=== PATIENT | male | born 1955 | race Hispanic/Latino ===

== ENCOUNTER 2016-10-19 11:23 | Inpatient (IN) | payer MEDICAID ==
[2016-10-19 12:29] LABS: BASO % 0.5 % (0.0-2.0); EOS # 0.1 K/uL (0.0-0.7); EOS % 1.4 % (0.0-4.0); HEMATOCRIT 39.5 % (35.0-51.0); LYMPH # 1.9 K/uL (1.0-4.3); LYMPH % 28.9 % (20.0-40.0); MEAN CELL VOLUME 90.9 fL (80.0-94.0); MEAN CORPUSCULAR HEMOGLOBIN 30.5 pg (27.0-31.0); MEAN CORPUSCULAR HGB CONC 33.6 g/dL (33.0-37.0); MEAN PLATELET VOLUME 7.3 fL (7.2-11.7); MONO # 0.7 K/uL (0.0-0.8); MONO % 11.2 % (0.0-10.0); RED CELL DISTRIBUTION WIDTH 13.2 % (11.5-14.5); WHITE BLOOD COUNT 6.6 K/uL (4.8-10.8)
[2016-10-19 12:38] LABS: CHLORIDE 105 mmol/L (98-107)
[2016-10-19 12:39] LABS: SODIUM 138 mmol/L (132-148)
[2016-10-19 12:41] LABS: ALB/GLOB RATIO 1.5 (1.0-2.1); AST/SGOT 47 U/L (17-59); BILIRUBIN,TOTAL 1.1 mg/dL (0.2-1.3); BLOOD UREA NITROGEN 16 mg/dL (9-20); CARBON DIOXIDE 23 mmol/L (22-30); GFR AFRICAN-AMERICAN > 60; TOTAL PROTEIN 7.3 g/dL (6.3-8.3)
[2016-10-19 12:42] LABS: ALKALINE PHOSPHATASE 83 U/L (38-126); ALT/SGPT 56 U/L (21-72); CALCIUM 9.1 mg/dl (8.6-10.4); GLUCOSE,RANDOM 100 mg/dL (75-110)
--- NOTE | 2016-10-19 13:23 | C.PDOC ---
History Of Present Illness 61 year old male presents to the ED with complaints of severe midsternal chest pain and paresthesia of the left arm. Patient notes a history of multiple TIAs one in April 2016 and another in June 2016 with a history of Atrial Fibrillation. He also mentions history of chronic pain to the right arm and back with the use of narcotics. Patient denies any fever, nausea, or vomiting. Time Seen by Provider: 10/19/16 12:11 Chief Complaint (Nursing): Chest Pain History Per: Patient History/Exam Limitations: no limitations Onset/Duration Of Symptoms: Hrs Current Symptoms Are (Timing): Still Present Quality: "Pain" Associated Symptoms: denies: Nausea, Diaphoresis Recent travel outside of the [place]: No Past Medical History Reviewed: Historical Data, Nursing Documentation, Vital Signs Vital Signs: Last Vital Signs Temp 98.0 F 10/19/16 16:55 Pulse 68 10/19/16 16:55 Resp 20 10/19/16 16:55 BP 125/77 10/19/16 16:55 Pulse Ox 97 10/19/16 16:55 - Medical History PMH: Anxiety, Arthritis, Asthma, Atrial Fibrillation, Back Problems, Bipolar Disorder, Cardia Arrhythmia, COPD, Depression, Hepatitis, HTN, Post Traumatic Stress Disorder (1985 of 2 y/o daughter), TIA (March 2016/JUN 2016) Surgical History: Appendectomy, Tonsillectomy Denies: Carotid Endarterectomy - [facility] Procedures DX ULTRASOUND-HEART (05/05/14) INSERTION OF INFUSION DEV INTO SUP VENA CAVA, PERC APPROACH (07/09/15) PERCUTANEOUS ABDOMINAL DRAINAGE (05/05/14) ULTRASONOGRAPHY OF RIGHT AND LEFT HEART, TRANSESOPHAGEAL (07/09/15) VENOUS CATHETERIZATION NEC (05/05/14) Family History: States: Unknown Family Hx - Social History Hx Tobacco Use: Yes (1ppd from ages [age] ) Hx Alcohol Use: No Hx Substance Use: No - Immunization History Hx Tetanus Toxoid Vaccination: No Hx Influenza Vaccination: Yes (01/2015) Hx Pneumococcal Vaccination: No (2013) Review Of Systems Constitutional: Negative for: Fever, Chills, Sweats Cardiovascular: Positive for: Chest Pain. Negative for: Palpitations Respiratory: Negative for: Cough, Shortness of Breath Gastrointestinal: Negative for: Nausea, Vomiting, Abdominal Pain, Diarrhea Neurological: Positive for: Other (left arm parenthesia ). Negative for: Headache Physical Exam - Physical Exam Appears: Non-toxic, No Acute Distress Skin: Warm, Dry Head: Atraumatic Oral Mucosa: Moist Neck: Supple Chest: Symmetrical, No Deformity Cardiovascular: Rhythm Regular Respiratory: No Rales, No Rhonchi, No Stridor, No Wheezing Gastrointestinal/Abdominal: Soft, No Tenderness, No Distention, No Guarding, No Rebound Extremity: Normal ROM, No Tenderness Neurological/Psych: Oriented x3 ED Course And Treatment - Laboratory Results Result Diagrams: 10/19/16 12:26 10/19/16 12:26 ECG Rhythm: Sinus Rhythm (70 bpm) ECG Interpretation: Normal (No accelerations and no depressions ) O2 Sat by Pulse Oximetry: 98 (room air ) Disposition Discussed With : Lupe Bowen Doctor Will See Patient In The: Hospital Counseled Patient/Family Regarding: Studies Performed, Diagnosis - Disposition Disposition: HOSPITALIZED Disposition Time: 13:34 Condition: GUARDED - Clinical Impression Clinical Impression: Chest discomfort, Precordial pain - Scribe Statement The provider has reviewed the documentation as recorded by the Scribe Marzena Otero All medical record entries made by the Scribe were at my direction and personally dictated by me. I have reviewed the chart and agree that the record accurately reflects my personal performance of the history, physical exam, medical decision making, and the department course for this patient. I have also personally directed, reviewed, and agree with the discharge instructions and disposition. Decision To Admit - Pt Status Changed To: Hospital Disposition Of: Observation - . Bed Request Type: Telemetry Patient Diagnosis: Chest discomfort, Precordial pain
[2016-10-19] MEDS ORDERED: Aspirin 325 mg EC Tablets PO STA (13:31)
[2016-10-19] MEDS ORDERED: Aspirin 325 mg EC Tablets PO ONE (13:37)
--- NOTE | 2016-10-19 16:20 | CP.PCM.HP ---
<Michael Tomasssrc Oconnor - Last Filed: 10/19/16 19:41> History of Present Illness - History of Present Illness History of Present Illness: CC: "Chest Pain at 4:40am." HPI: 61 year old male who presents to the emergency department with chest pain that began at 4:30am. Patient states the pain has occured 2-3 days but the pain went away at rest. Currently the pain is constant and feels like a tightness as if an elephant is sitting on his chest. The pain is located substernal chest. There is constant numbness and tingling radiating to the left arm and fingertips which is made worse when what feels as an electric shock comes and also radiates to the left thigh. The pain is a 9/10 and nothing makes the pain worse or better. Patient states he did take 81mg of Aspirin but denies taking of his other home medications. Per patient has had nausea and vomiting occured yesterday once and no blood was seen. Patient states has has unwanted 6lb weight loss in one week. Patient has had two loose bowel movements today and has noticed red blood in stool. PMD: Dr. Garrett Psych: Dr. Olmstead Past Medical History: COPD, PTSD, Panic Anxiety Disorder, Bipolar, Depression, Atrial Fibrillation, Hyperlipidemia, osteomylitis, transient ischemic attack, Hepatitis C, Rotator cuff tear Past Surgical History: 1979 Left Knee Surgery, 1959 Appendectomy, Umbilical Hernia Repair, Groin Hernia Repair Family History: Mom: 50 years old, Congestive heart failure Dad: healthy 83 year old male, 2 brothers and one sister history of Myocardial Infarction Social History: 30 year smoking history 5 cigarettes per day, denies alcohol, denies illicit drugs,currently living in a homeless nursing home, 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 Home Medications per [employer]: 40 mg Omeprazole once per day 81mg Aspirin once per day 30mg Cardizem four times per day 125 digoxin once per day 25 metoprolol tartrate once daily Advair Diskus 250-50mcg/dose aerosol 1 puff inhalation twice per day Albuterol sulfate HFA 108 MCG/ACT aerosol solution 2 puffs as needed inhalation every 4 hours 10mg simvastatin once per day Percocet 5-325mg 1 tablet as needed orally every 6 hours Xanax 0.5mg tablet orally once per day as needed 150mg Bupropion tablet extended release 24 hour 1 tablet in the morning orally once a day Paxil 40mg tablet in the morning orally once a day MS Contin 15mg tablet extended release 1 tablet orally every 12 hours Present on Admission - Present on Admission Any Indicators Present on Admission: No History of DVT/PE: No History of Uncontrolled Diabetes: No Urinary Catheter: No Decubitus Ulcer Present: No History Surgical Site Infection Following: None Review of Systems - Constitutional Constitutional: Headache, Weight Loss Additional comments: unwanted 6lb weight loss in one week - Cardiovascular Cardiovascular: Chest Pain, Lightheadedness, Palpitations - Respiratory Respiratory: Cough - Gastrointestinal Gastrointestinal: Hematochezia, Loose Stools, Vomiting Additional comments: blood seen in the stool vomiting once 10/18/16 - Genitourinary Genitourinary: Nocturia Additional comments: voids 2 times nightly - Musculoskeletal Musculoskeletal: Back Pain Additional comments: spinal stenosis - Neurological Neurological: Headaches - Endocrine Endocrine: Fatigue, Palpitations Past Patient History - Infectious Disease Hx of Infectious Diseases: None - Tetanus Immunizations Tetanus Immunization: Unknown - Past Medical History & Family History Past Medical History?: Yes - Past Social History Smoking Status: Heavy Smoker > 10 Cigarettes Daily Chewing Tobacco Use: No Cigar Use: No Alcohol: None Drugs: Denies Home Situation {Lives}: Homeless - CARDIAC Hx Atrial Fibrillation: Yes Hx Cardia Arrhythmia: Yes Hx Hypertension: Yes - PULMONARY Hx Asthma: Yes Hx Chronic Obstructive Pulmonary Disease (COPD): Yes - NEUROLOGICAL Hx Transient Ischemic Attacks (TIA): Yes (March 2016/JUN 2016) - HEENT Hx Cataracts: Yes ("early stages" as per patient) - RENAL Hx Chronic Kidney Disease: No - ENDOCRINE/METABOLIC Hx Endocrine Disorders: No - HEMATOLOGICAL/ONCOLOGICAL Hx Human Immunodeficiency Virus (HIV): No - INTEGUMENTARY Hx Dermatological Problems: Yes Hx Psoriasis: Yes - MUSCULOSKELETAL/RHEUMATOLOGICAL Hx Arthritis: Yes - GASTROINTESTINAL Hx Gastrointestinal Disorders: No - GENITOURINARY/GYNECOLOGICAL Hx Sexually Transmitted Disorders: No - PSYCHIATRIC Hx Anxiety: Yes Hx Bipolar Disorder: Yes Hx Depression: Yes Hx Post Traumatic Stress Disorder: Yes (1985 of 2 y/o daughter) Hx Substance Use: No - SURGICAL HISTORY Hx Appendectomy: Yes Hx Carotid Endarterectomy: No Hx Tonsillectomy: Yes - ANESTHESIA Hx Anesthesia: Yes Hx Anesthesia Reactions: No Hx Malignant Hyperthermia: No Meds Allergies/Adverse Reactions: Allergies Allergy/AdvReac Type Severity Reaction Status Date / Time No Known Allergies Allergy Verified 10/19/16 11:32 Physical Exam - Constitutional Appears: No Acute Distress - Eye Exam Eye Exam: EOMI, PERRL Pupil Exam: NORMAL ACCOMODATION - Respiratory Exam Respiratory Exam: Clear to Auscultation Bilateral, NORMAL BREATHING PATTERN - Cardiovascular Exam Cardiovascular Exam: REGULAR RHYTHM. absent: JVD - GI/Abdominal Exam GI & Abdominal Exam: Normal Bowel Sounds, Soft - Rectal Exam Rectal Exam: NORMAL INSPECTION Additional comments: ordered stool occult blood - Extremities Exam Extremities exam: Positive for: full ROM, normal inspection, pedal pulses present. Negative for: pedal edema, tenderness - Neurological Exam Neurological exam: Alert, CN II-XII Intact, Oriented x3 Additional comments: Light headed was unstable to walk - Psychiatric Exam Psychiatric exam: Normal Affect, Normal Mood - Skin Skin Exam: Normal Color Results - Vital Signs Recent Vital Signs: Last Vital Signs Temp 98.3 F 10/19/16 15:16 Pulse 63 10/19/16 15:16 Resp 18 10/19/16 15:16 BP 128/81 10/19/16 15:16 Pulse Ox 98 10/19/16 15:30 - Labs Result Diagrams: 10/19/16 12:26 10/19/16 12:26 Labs: Laboratory Results - last 24 hr 10/19/16 15:14 Stool Occult Blood Negative Assessment & Plan - Assessment and Plan (Free Text) Assessment: 61 year old male who presents to the emergency department with chest pain. Plan: 1.) Chest Pain * Observe to telemetry * In the ED, Aspirin 325mg POx1 * Aspirin 81mg PO 1x daily * Metoprolol Tartrate 25mg daily * Cardizem 30mg 4x pe day * Digoxin level if negative will restart digoxin * ОЛЕГ and EKG at 6:30pm, ОЛЕГ and EKG at 12:30AM * ECHO (06/06/16): Left atrial enlarged, right atrium dilated, LV:60% * HgA1C * Lipid Panel * TSH 2.) Rectal Bleeding * Stool occult blood * monitor H/H * GI Consult: Dr. Riggs --> help appreciated * 40mg protonix daily 3.) Chronic Pain * History of stenosis, right rotator cuff tear * Urine Drug Screen pending * Percocet 5/325 q6h PRN 4.) History of PTSD, Anxiety, Bipolar, Depression * 40mg Paxil once daily * 150mg wellbutrin once daily * 0.5mg xanax once daily as needed 5.) Hyperlipidemia * 5mg Crestor * Lipid Panel 6.) History of COPD * Duonebs [id number] PRN for shortness of breath * 250.50 Advair 1 puff q12 hours 7.) History of Atrial Fibrillation * Metoprolol Tartrate 25mg daily * Cardizem 30mg 4x pe day * Off Xarelto due to rectal bleeding, and for future shoulder surgery * HASBLED:2 * CHADS:1 and aspirin 81mg PO daily 8.) History of Hepatitis C * not on current therapy at this time 9.) Prophylactic Treatment * SCDS bilateral * 40mg protonix daily <Lupe Bowen V - Last Filed: 10/19/16 23:28> Results - Vital Signs Recent Vital Signs: Last Vital Signs Temp 98.0 F 10/19/16 16:55 Pulse 68 10/19/16 16:55 Resp 18 10/19/16 17:27 BP 125/77 10/19/16 16:55 Pulse Ox 98 10/19/16 18:39 - Labs Result Diagrams: 10/19/16 12:26 10/19/16 12:26 Labs: Laboratory Results - last 24 hr 10/19/16 10/19/16 10/19/16 15:14 19:16 19:16 Total Creatine Kinase 40 L CK-MB (Mass) 0.68 Troponin I, Quant < 0.0120 Stool Occult Blood Negative Urine Opiates Screen Positive Urine Methadone Screen Negative Ur Barbiturates Screen Negative Ur Phencyclidine Scrn Negative Ur Amphetamines Screen Negative U Benzodiazepines Scrn Negative U Oth Cocaine Metabols Negative U Cannabinoids Screen Negative Attending/Attestation - Attestation I have personally seen and examined this patient.: Yes I have fully participated in the care of the patient.: Yes I have reviewed all pertinent clinical information: Yes Notes (Text): Patient seen, examined, and case discussed with day-time internet marketing analyst. Patient reporting he had chest pain this morning while waking up, substernal, left part of chest sometimes travels to the arm and neck. Patient denies prior episodes of chest pain. Patient also reported he thought he saw his stools were "dark" 5 days ago and reports possible rectal bleeding, small amount, but is unsure. Patient denies completing a prior baseline colonoscopy for screening. Patient routinely takes an aspirin at home. In the ED, patient received Aspirin 325mg PO X1, Toradol 30mg IVX1. Discussed admitting orders with the resident. Assessment/Plan 1.) Chest Pain * Observe to telemetry * In the ED, Aspirin 325mg POx1 * Will start Aspirin 81mg PO 1x daily * c/w Metoprolol Tartrate 25mg daily HOLD SBP<100 and HR<60 * c/w Cardizem 30mg 4x aday HOLD SBP<100 and HR<60 * Order for Digoxin level if negative will restart digoxin * Patient's initial troponin is negative. ОЛЕГ and EKG at 6:30pm, ОЛЕГ and EKG at 12:30AM * ECHO (06/06/16): Left atrial enlarged, right atrium dilated, LV:60% * HgA1C in AM * Lipid Panel in AM * TSH in AM 2.) Rectal Bleeding * Stool occult blood ordered and rectal performed by resident with consent by patient; negative * monitor H/H; appears stable * GI Consult: Dr Tim/ GI Fellow Dr. Riggs --> help appreciated * Protonix 40mg PO daily * Patient is currently on Aspirin 81mg PO daily and has been off Xarelto confirmed in both [employer] and [employer] works EMR 3.) Chronic Pain * History of spinal stenosis, extensive right rotator cuff tear * Urine Drug Screen ordered-->confirmed opiate use * Start Percocet 1 tab 5/325 q6h PRN pain 4.) History of PTSD, Anxiety, Bipolar, Depression * c/w Paxil 40mg PO daily * c/w Wellbutrin 150mg daily * c/w xanax 0.5mg PO daily as needed 5.) Hyperlipidemia * c/w Crestor 5mg POqHS * Lipid Panel in AM 6.) History of COPD * Patient is not in active exacerbation * Duonebs [id number] PRN for shortness of breath * Advair 250/50 1 puff q12 hours 7.) History of Atrial Fibrillation * c/w Metoprolol Tartrate 25mg daily Hold SBP<100 and HR<60 * c/w Cardizem 30mg QID Hold SBP<100 and HR<60 * patient has been off Xarelto due possible surgery for rotator cuff; will remain off given complaint of rectal bleeding * HASBLED:2 * CHADS:1 (HTN) * c/w Aspirin 81mg PO daily 8.) History of Hepatitis C * not on current therapy at this time 9.) Prophylactic Treatment * SCDS bilateral * Protonix 40mg PO daily for GI ppx * Contraindications to VTE due to rectal bleeding
[2016-10-19] MEDS ORDERED: Albuterol-Ipratrop 3 mg / 0.5 (3 ml) UD INH PRN (18:41)
[2016-10-19] MEDS: Oxycodone/Acetaminophen 5/325 mg Tab PO PRN (19:07)
[2016-10-20] MEDS: Oxycodone/Acetaminophen 5/325 mg Tab PO PRN ×3 (00:51→12:59)
[2016-10-20 04:29] LABS: BASO % 0.7 % (0.0-2.0); EOS # 0.2 K/uL (0.0-0.7); EOS % 2.8 % (0.0-4.0); HEMATOCRIT 41.9 % (35.0-51.0); LYMPH # 2.5 K/uL (1.0-4.3); LYMPH % 34.2 % (20.0-40.0); MEAN CORPUSCULAR HGB CONC 32.9 g/dL (33.0-37.0); MEAN PLATELET VOLUME 7.8 fL (7.2-11.7); MONO # 0.9 K/uL (0.0-0.8); RED CELL DISTRIBUTION WIDTH 13.3 % (11.5-14.5); WHITE BLOOD COUNT 7.3 K/uL (4.8-10.8)
[2016-10-20 04:40] LABS: CHLORIDE 106 mmol/L (98-107)
[2016-10-20 04:41] LABS: POTASSIUM 3.9 mmol/L (3.6-5.2); SODIUM 138 mmol/L (132-148)
[2016-10-20 04:43] LABS: ALB/GLOB RATIO 1.1 (1.0-2.1); AST/SGOT 38 U/L (17-59); BILIRUBIN,TOTAL 0.8 mg/dL (0.2-1.3); BLOOD UREA NITROGEN 18 mg/dL (9-20); CARBON DIOXIDE 24 mmol/L (22-30); CHOLESTEROL 156 mg/dL (0-199); GFR AFRICAN-AMERICAN > 60; GLUCOSE,RANDOM 105 mg/dL (75-110); TOTAL PROTEIN 7.1 g/dL (6.3-8.3)
[2016-10-20 04:44] LABS: ALKALINE PHOSPHATASE 93 U/L (38-126); ALT/SGPT 57 U/L (21-72)
[2016-10-20 05:18] LABS: THYROID STIMULATING HORMONE 1.54 mIU/L (0.46-4.68)
--- NOTE | 2016-10-20 09:13 | CP.PCM.CON ---
<Nick Neil - Last Filed: 10/20/16 12:52> History of Present Illness - History of Present Illness History of Present Illness: PGY4 GI Fellow Consult Note Patient is a 61yo male with PMHx significant for atrial fibrillation previously on Xarelto, COPD, spinal stenosis, HCV (Tx naive, GT 1a, unknown viral load), multiple TIA who presented to the ED with chest pain. The patient states that he first noted palpitations at rest two days [employer]. In the days that followed he developed substernal left sided chest pressure-like pain and left arm/hand paresthesias which prompted him to come to the ED for further evaluation. Our service has been consulted for rectal bleeding. He admits that 2 days [employer] he also developed diarrhea with 3-4 episodes per day of loose watery stool. On the second day of symptoms he noted bright red blood mixed with his stool. Complains of B/L lower quadrant cramping abdominal pain as well. He was seen in the [facility] in June of this year and at that time complained of hematochezia. He was scheduled for endoscopy/colonoscopy but was unfortunately lost to follow up. He denies any sick contacts, recent travel or antibiotic usage. It is noted that patient has been living in a homeless fci. PMHx: See HPI PSHx: Appendectomy, Umbilical and inguinal hernia repairs, Left knee arthroscopic surgery FHx: Mother - CHF Social: +tobacco use, denies EtOH currently, no current illicit drug use Endo: No prior endoscopic evaluations Review of Systems - Constitutional Constitutional: absent: Anorexia, Chills, Fever, Weight Loss - EENT Eyes: absent: Change in Vision Nose/Mouth/Throat: absent: Sore Throat - Cardiovascular Cardiovascular: Chest Pain, Pain Radiating to Arm/Neck/Jaw, Palpitations. absent: Dyspnea - Respiratory Respiratory: absent: Cough, Dyspnea, Excessive Mucous Production - Gastrointestinal Gastrointestinal: Abdominal Pain, Cramping, Diarrhea, Hematochezia, Loose Stools. absent: Bloating, Constipation, Dyspepsia, Dysphagia, Heartburn, Melena , Nausea, Vomiting - Genitourinary Genitourinary: absent: Dysuria, Urinary Frequency, Urinary Urgency - Musculoskeletal Musculoskeletal: Back Pain. absent: Neck Pain - Integumentary Integumentary: absent: New Lesions, Rash - Neurological Neurological: Numbness. absent: Dizziness, Focal Weakness - Psychiatric Psychiatric: absent: Anxiety, Depression - Endocrine Endocrine: absent: Polydipsia, Polyphagia, Polyuria - Hematologic/Lymphatic Hematologic: absent: Easy Bleeding, Easy Bruising, Lymphadenopathy Past Patient History - Infectious Disease Hx of Infectious Diseases: None - Tetanus Immunizations Tetanus Immunization: Unknown - Past Medical History & Family History Past Medical History?: Yes - Past Social History Smoking Status: Heavy Smoker > 10 Cigarettes Daily Chewing Tobacco Use: No Cigar Use: No Alcohol: None Drugs: Denies Home Situation {Lives}: Homeless - CARDIAC Hx Atrial Fibrillation: Yes Hx Cardia Arrhythmia: Yes Hx Hypertension: Yes - PULMONARY Hx Asthma: Yes Hx Chronic Obstructive Pulmonary Disease (COPD): Yes - NEUROLOGICAL Hx Transient Ischemic Attacks (TIA): Yes (March 2016/JUN 2016) - HEENT Hx Cataracts: Yes ("early stages" as per patient) - RENAL Hx Chronic Kidney Disease: No - ENDOCRINE/METABOLIC Hx Endocrine Disorders: No - HEMATOLOGICAL/ONCOLOGICAL Hx Human Immunodeficiency Virus (HIV): No - INTEGUMENTARY Hx Dermatological Problems: Yes Hx Psoriasis: Yes - MUSCULOSKELETAL/RHEUMATOLOGICAL Hx Arthritis: Yes - GASTROINTESTINAL Hx Gastrointestinal Disorders: No - GENITOURINARY/GYNECOLOGICAL Hx Sexually Transmitted Disorders: No - PSYCHIATRIC Hx Anxiety: Yes Hx Bipolar Disorder: Yes Hx Depression: Yes Hx Post Traumatic Stress Disorder: Yes (1985 of 2 y/o daughter) Hx Substance Use: No - SURGICAL HISTORY Hx Appendectomy: Yes Hx Carotid Endarterectomy: No Hx Tonsillectomy: Yes - ANESTHESIA Hx Anesthesia: Yes Hx Anesthesia Reactions: No Hx Malignant Hyperthermia: No Meds Allergies/Adverse Reactions: Allergies Allergy/AdvReac Type Severity Reaction Status Date / Time No Known Allergies Allergy Verified 10/19/16 11:32 - Medications Medications: Current Medications Albuterol/Ipratropium (Duoneb 3 Mg/0.5 Mg (3 Ml) Ud) 3 ml INH RQ4 PRN PRN Reason: Shortness of Breath Alprazolam (Xanax) 0.5 mg PO DAILY [facility] Aspirin (Aspirin Chewable) 81 mg PO DAILY [facility] Bupropion HCl (Wellbutrin Sr 150 Mg) 150 mg PO DAILY [facility] Diltiazem HCl (Cardizem) 30 mg PO QID [facility] Last Admin: 10/20/16 06:27 Dose: 30 mg Metoprolol Tartrate (Lopressor) 25 mg PO DAILY [facility] Oxycodone/Acetaminophen (Percocet 5/325 Mg Tab) 1 tab PO Q6H PRN PRN Reason: Pain, severe (8-10) Stop: 10/22/16 18:56 Last Admin: 10/20/16 06:55 Dose: 1 tab Pantoprazole Sodium (Protonix Ec Tab) 40 mg PO DAILY [facility] Paroxetine HCl (Paxil) 40 mg PO DAILY [facility] Rosuvastatin Calcium (Crestor) 5 mg PO HS [facility] Last Admin: 10/19/16 21:34 Dose: 5 mg Fluticasone/Salmeterol (Advair Diskus 250/50) 1 puff INH RQ12 [facility] Physical Exam - Constitutional Appears: Non-toxic, No Acute Distress - Eye Exam Eye Exam: EOMI, PERRL - ENT Exam ENT Exam: Mucous Membranes Moist - Respiratory Exam Respiratory Exam: Clear to Auscultation Bilateral. absent: Rales, Rhonchi, Wheezes - Cardiovascular Exam Cardiovascular Exam: Irregular Rhythm, +S1, +S2 Additional comments: regular rate - GI/Abdominal Exam GI & Abdominal Exam: Normal Bowel Sounds, Soft. absent: Distended, Firm, Guarding, Organomegaly, Rigid, Tenderness - Rectal Exam Rectal Exam: Hemorrhoids (external/internal). absent: Black Stool, Bloody Stool - Extremities Exam Extremities exam: Positive for: normal inspection. Negative for: pedal edema - Neurological Exam Neurological exam: Alert, Oriented x3 - Psychiatric Exam Psychiatric exam: Normal Affect, Normal Mood - Skin Skin Exam: Dry, Warm Results - Vital Signs Recent Vital Signs: Last Vital Signs Temp 98.6 F 10/20/16 07:05 Pulse 87 10/20/16 07:05 Resp 18 10/20/16 07:05 BP 117/77 10/20/16 07:05 Pulse Ox 97 10/20/16 07:05 - Labs Result Diagrams: 10/20/16 04:26 10/20/16 04:26 Labs: Laboratory Results - last 24 hr 10/19/16 10/19/16 10/19/16 15:14 19:16 19:16 WBC RBC Hgb Hct MCV MCH MCHC RDW Plt Count MPV Neut % (Auto) Lymph % (Auto) Evans % (Auto) Eos % (Auto) Baso % (Auto) Neut # Lymph # Evans # Eos # Baso # D-Dimer, Quantitative Sodium Potassium Chloride Carbon Dioxide Anion Gap BUN Creatinine Est GFR ( Amer) Est GFR (Non-Af Amer) Random Glucose Hemoglobin A1c Calcium Total Bilirubin AST ALT Alkaline Phosphatase Total Creatine Kinase 40 L CK-MB (Mass) 0.68 Troponin I, Quant < 0.0120 Total Protein Albumin Globulin Albumin/Globulin Ratio Triglycerides Cholesterol LDL Cholesterol Direct HDL Cholesterol TSH 3rd Generation Stool Occult Blood Negative Digoxin Urine Opiates Screen Positive Urine Methadone Screen Negative Ur Barbiturates Screen Negative Ur Phencyclidine Scrn Negative Ur Amphetamines Screen Negative U Benzodiazepines Scrn Negative U Oth Cocaine Metabols Negative U Cannabinoids Screen Negative 10/20/16 10/20/16 10/20/16 04:26 04:26 04:26 WBC 7.3 RBC 4.61 Hgb 13.8 Hct 41.9 MCV 91.0 MCH 30.0 MCHC 32.9 L RDW 13.3 Plt Count 253 MPV 7.8 Neut % (Auto) 50.3 Lymph % (Auto) 34.2 Evans % (Auto) 12.0 H Eos % (Auto) 2.8 Baso % (Auto) 0.7 Neut # 3.7 Lymph # 2.5 Evans # 0.9 H Eos # 0.2 Baso # 0.0 D-Dimer, Quantitative Sodium 138 Potassium 3.9 Chloride 106 Carbon Dioxide 24 Anion Gap 13 BUN 18 Creatinine 0.8 Est GFR ( Amer) > 60 Est GFR (Non-Af Amer) > 60 Random Glucose 105 Hemoglobin A1c 5.6 Calcium 9.0 Total Bilirubin 0.8 AST 38 ALT 57 Alkaline Phosphatase 93 Total Creatine Kinase CK-MB (Mass) Troponin I, Quant Total Protein 7.1 Albumin 3.8 Globulin 3.4 Albumin/Globulin Ratio 1.1 Triglycerides 66 D Cholesterol 156 LDL Cholesterol Direct 102 HDL Cholesterol 44 TSH 3rd Generation 1.54 Stool Occult Blood Digoxin Urine Opiates Screen Urine Methadone Screen Ur Barbiturates Screen Ur Phencyclidine Scrn Ur Amphetamines Screen U Benzodiazepines Scrn U Oth Cocaine Metabols U Cannabinoids Screen 10/20/16 10/20/16 10/20/16 04:26 04:26 06:23 WBC RBC Hgb Hct MCV MCH MCHC RDW Plt Count MPV Neut % (Auto) Lymph % (Auto) Evans % (Auto) Eos % (Auto) Baso % (Auto) Neut # Lymph # Evans # Eos # Baso # D-Dimer, Quantitative < 200 Sodium Potassium Chloride Carbon Dioxide Anion Gap BUN Creatinine Est GFR ( Amer) Est GFR (Non-Af Amer) Random Glucose Hemoglobin A1c Calcium Total Bilirubin AST ALT Alkaline Phosphatase Total Creatine Kinase 46 L CK-MB (Mass) 0.66 Troponin I, Quant < 0.0120 Total Protein Albumin Globulin Albumin/Globulin Ratio Triglycerides Cholesterol LDL Cholesterol Direct HDL Cholesterol TSH 3rd Generation Stool Occult Blood Digoxin < 0.4 L Urine Opiates Screen Urine Methadone Screen Ur Barbiturates Screen Ur Phencyclidine Scrn Ur Amphetamines Screen U Benzodiazepines Scrn U Oth Cocaine Metabols U Cannabinoids Screen Assessment & Plan - Assessment and Plan (Free Text) Assessment: Patient is a 61yo male with PMHx significant for atrial fibrillation previously on Xarelto, COPD, spinal stenosis, HCV (Tx naive, GT 1a, unknown viral load), multiple TIA who presented to the ED with chest pain -Chest pain, R/O ACS -Atrial fibrillation with RVR, resolved at present; not on anticoagulation -Acute diarrheal illness -Hematochezia, ongoing -Hemorrhoids -HCV genotype 1a Plan: -Cardiac work up per primary service -Check CT A/P with PO/IV contrast -Hemorrhoids on rectal examination - topical medications to be ordered -Supportive care for diarrheal illness -HCV to be treated outpatient on follow up -Fibrosure grade 2 noted -Patient would benefit from EGD/Colonoscopy, can be performed as an outpatient, once acute issues have resolved -Patient not on anticoagulation given hx of epistaxis, nonadherent to therapy - Date & Time Date: 10/20/16 Time: 07:30 <Rafael Garcia - Last Filed: 10/20/16 14:47> Meds - Medications Medications: Current Medications Albuterol/Ipratropium (Duoneb 3 Mg/0.5 Mg (3 Ml) Ud) 3 ml INH RQ4 PRN PRN Reason: Shortness of Breath Alprazolam (Xanax) 0.5 mg PO DAILY [facility] Last Admin: 10/20/16 09:48 Dose: 0.5 mg Aspirin (Aspirin Chewable) 81 mg PO DAILY [facility] Last Admin: 10/20/16 09:48 Dose: 81 mg Bupropion HCl (Wellbutrin Sr 150 Mg) 150 mg PO DAILY [facility] Last Admin: 10/20/16 09:47 Dose: 150 mg Diltiazem HCl (Cardizem) 30 mg PO QID [facility] Last Admin: 10/20/16 12:59 Dose: 30 mg Metoprolol Tartrate (Lopressor) 25 mg PO DAILY [facility] Last Admin: 10/20/16 09:50 Dose: 25 mg Oxycodone/Acetaminophen (Percocet 5/325 Mg Tab) 1 tab PO Q6H PRN PRN Reason: Pain, severe (8-10) Stop: 10/22/16 18:56 Last Admin: 10/20/16 12:59 Dose: 1 tab Pantoprazole Sodium (Protonix Ec Tab) 40 mg PO DAILY [facility] Last Admin: 10/20/16 09:47 Dose: 40 mg Paroxetine HCl (Paxil) 40 mg PO DAILY [facility] Last Admin: 10/20/16 09:47 Dose: 40 mg Rosuvastatin Calcium (Crestor) 5 mg PO HS [facility] Last Admin: 10/19/16 21:34 Dose: 5 mg Fluticasone/Salmeterol (Advair Diskus 250/50) 1 puff INH RQ12 [facility] Last Admin: 10/20/16 09:31 Dose: Not Given Results - Vital Signs Recent Vital Signs: Last Vital Signs Temp 98.6 F 10/20/16 07:05 Pulse 101 H 10/20/16 11:38 Resp 18 10/20/16 07:05 BP 117/75 10/20/16 09:50 Pulse Ox 97 10/20/16 07:05 - Labs Result Diagrams: 10/20/16 04:26 10/20/16 04:26 Labs: Laboratory Results - last 24 hr 10/19/16 10/19/16 10/19/16 15:14 19:16 19:16 WBC RBC Hgb Hct MCV MCH MCHC RDW Plt Count MPV Neut % (Auto) Lymph % (Auto) Evans % (Auto) Eos % (Auto) Baso % (Auto) Neut # Lymph # Evans # Eos # Baso # D-Dimer, Quantitative Sodium Potassium Chloride Carbon Dioxide Anion Gap BUN Creatinine Est GFR ( Amer) Est GFR (Non-Af Amer) Random Glucose Hemoglobin A1c Calcium Total Bilirubin AST ALT Alkaline Phosphatase Total Creatine Kinase 40 L CK-MB (Mass) 0.68 Troponin I, Quant < 0.0120 Total Protein Albumin Globulin Albumin/Globulin Ratio Triglycerides Cholesterol LDL Cholesterol Direct HDL Cholesterol TSH 3rd Generation Stool Occult Blood Negative Digoxin Urine Opiates Screen Positive Urine Methadone Screen Negative Ur Barbiturates Screen Negative Ur Phencyclidine Scrn Negative Ur Amphetamines Screen Negative U Benzodiazepines Scrn Negative U Oth Cocaine Metabols Negative U Cannabinoids Screen Negative 10/20/16 10/20/16 10/20/16 04:26 04:26 04:26 WBC 7.3 RBC 4.61 Hgb 13.8 Hct 41.9 MCV 91.0 MCH 30.0 MCHC 32.9 L RDW 13.3 Plt Count 253 MPV 7.8 Neut % (Auto) 50.3 Lymph % (Auto) 34.2 Evans % (Auto) 12.0 H Eos % (Auto) 2.8 Baso % (Auto) 0.7 Neut # 3.7 Lymph # 2.5 Evans # 0.9 H Eos # 0.2 Baso # 0.0 D-Dimer, Quantitative Sodium 138 Potassium 3.9 Chloride 106 Carbon Dioxide 24 Anion Gap 13 BUN 18 Creatinine 0.8 Est GFR ( Amer) > 60 Est GFR (Non-Af Amer) > 60 Random Glucose 105 Hemoglobin A1c 5.6 Calcium 9.0 Total Bilirubin 0.8 AST 38 ALT 57 Alkaline Phosphatase 93 Total Creatine Kinase CK-MB (Mass) Troponin I, Quant Total Protein 7.1 Albumin 3.8 Globulin 3.4 Albumin/Globulin Ratio 1.1 Triglycerides 66 D Cholesterol 156 LDL Cholesterol Direct 102 HDL Cholesterol 44 TSH 3rd Generation 1.54 Stool Occult Blood Digoxin Urine Opiates Screen Urine Methadone Screen Ur Barbiturates Screen Ur Phencyclidine Scrn Ur Amphetamines Screen U Benzodiazepines Scrn U Oth Cocaine Metabols U Cannabinoids Screen 10/20/16 10/20/16 10/20/16 04:26 04:26 06:23 WBC RBC Hgb Hct MCV MCH MCHC RDW Plt Count MPV Neut % (Auto) Lymph % (Auto) Evans % (Auto) Eos % (Auto) Baso % (Auto) Neut # Lymph # Evans # Eos # Baso # D-Dimer, Quantitative < 200 Sodium Potassium Chloride Carbon Dioxide Anion Gap BUN Creatinine Est GFR ( Amer) Est GFR (Non-Af Amer) Random Glucose Hemoglobin A1c Calcium Total Bilirubin AST ALT Alkaline Phosphatase Total Creatine Kinase 46 L CK-MB (Mass) 0.66 Troponin I, Quant < 0.0120 Total Protein Albumin Globulin Albumin/Globulin Ratio Triglycerides Cholesterol LDL Cholesterol Direct HDL Cholesterol TSH 3rd Generation Stool Occult Blood Digoxin < 0.4 L Urine Opiates Screen Urine Methadone Screen Ur Barbiturates Screen Ur Phencyclidine Scrn Ur Amphetamines Screen U Benzodiazepines Scrn U Oth Cocaine Metabols U Cannabinoids Screen Attending/Attestation - Attestation I have personally seen and examined this patient.: Yes I have fully participated in the care of the patient.: Yes I have reviewed all pertinent clinical information: Yes Notes (Text): 10/20/16 14:43 61 year old male with h/o afib, COPD, spinal stenosis, HCV, multiple TIA admitted with chest pain, also with diarrhea and BRBPR. 1. Hematochezia 2. Diarrhea 3. Chronic hepatitis C Plan: -Recommend CT A/P for further evaluation -recommend elective outpatient EGD/Colonoscopy once acute issues resolved/ cardiac evaluation is completed -bleeding is most likely hemorrhoidal and can be treated with topic ointments like anusol/proctosol as well as fiber supplementation -needs outpatient follow up for consideration of hepatitis C therapy
[2016-10-20] MEDS: Fluticasone-Salmeterol 250-50mcg Diskus INH SCH ×2 (09:31→20:51)
[2016-10-20] MEDS: Pantoprazole 40 mg EC Tab PO SCH (09:47)
[2016-10-20] MEDS: buPROPion SR 150 MG TABLET PO SCH (09:47)
[2016-10-20] MEDS ORDERED: Iohexol 240 (50 ml) PO ONE ×2 (10:15→10:45)
[2016-10-20] MEDS ORDERED: Iodixanol 320 MG/ML 100 ML BOTTLE IV ONE (13:29)
--- NOTE | 2016-10-20 15:24 | CT ---
PROCEDURE: CT Abdomen and Pelvis with contrast HISTORY: abdominal pain, hematochezia COMPARISON: None. TECHNIQUE: Contrast dose: 100 mL Visipaque 320 Radiation dose: Total exam DLP = 665.37 mGy-cm. This CT exam was performed using one or more of the following dose reduction techniques: Automated exposure control, adjustment of the mA and/or kV according to patient size, and/or use of iterative reconstruction technique. FINDINGS: LOWER THORAX: Unremarkable. LIVER: Normal size, contour and attenuation. Tiny nonspecific low attenuation lesion in the anterior right hepatic lobe, unchanged. No biliary dilatation. GALLBLADDER AND BILE DUCTS: Unremarkable. PANCREAS: Unremarkable. No gross lesion or ductal dilatation. SPLEEN: Unremarkable. ADRENALS: Unremarkable. No mass. KIDNEYS AND URETERS: Multiple small bilateral nonobstructing renal calculi. This is unchanged. In the right kidney, these are seen in the upper pole. In the left kidney, they are seen in the mid to upper pole. Multiple small low-attenuation masses likely representing cysts and unchanged from prior examination. No hydronephrosis. VASCULATURE: Unremarkable. No aortic aneurysm. BOWEL: Unremarkable. No obstruction. No gross mural thickening. APPENDIX: Not identified. No secondary findings to suggest acute appendicitis PERITONEUM: Unremarkable. No free fluid. No free air. LYMPH NODES: Unremarkable. No enlarged lymph nodes. BLADDER: Unremarkable. REPRODUCTIVE: Normal prostate BONES: No acute fracture. Degenerative changes of lower lumbar spine including grade 1 retrolisthesis at L4-5 and grade 1 anterolisthesis at L5-S1. OTHER FINDINGS: None. IMPRESSION: Multiple small nonobstructing bilateral renal calculi essentially unchanged from 07/21/2015. No acute abnormality.
[2016-10-20] MEDS: Albuterol-Ipratrop 3 mg / 0.5 (3 ml) UD INH SCH ×2 (16:00→20:55)
--- NOTE | 2016-10-20 16:12 | CP.PCM.PN ---
Addendum entered and electronically signed by Judi Delgado 10/20/16 18:20 : of note cardiovascular exam findings: irregular irregular rhythm, no murmurs, gallops or rubs Original Note: <Judi Delgado - Last Filed: 10/20/16 17:59> Subjective - Date & Time of Evaluation Date of Evaluation: 10/20/16 Time of Evaluation: 07:30 - Subjective Subjective: PGY 1 Medicine Note- Dr. Bowen's Service Patient seen and examined at bedside and is in no acute distress. Patient admits to having midline chest pain 11/08 compared to 01/09 yesterday, palpitations, and left arm tingling. Patient also admits that he has had diarrhea 5 times which is progressively becoming more watery. No blood is seen in the stool. He denies any sick contacts or new foods. Patient says his breathing and lightheadedness are better today. Objective - Vital Signs/Intake and Output Vital Signs (last 24 hours): Temp Pulse Resp BP Pulse Ox 98.6 F 101 H 18 117/75 97 10/20/16 07:05 10/20/16 11:38 10/20/16 07:05 10/20/16 09:50 10/20/16 07:05 - Medications Medications: Current Medications Albuterol/Ipratropium (Duoneb 3 Mg/0.5 Mg (3 Ml) Ud) 3 ml INH RQ4 [facility] Alprazolam (Xanax) 0.5 mg PO DAILY [facility] Aspirin (Aspirin Chewable) 81 mg PO DAILY [facility] Last Admin: 10/20/16 09:48 Dose: 81 mg Bupropion HCl (Wellbutrin Sr 150 Mg) 150 mg PO DAILY [facility] Last Admin: 10/20/16 09:47 Dose: 150 mg Digoxin (Lanoxin) 0.125 mg PO DAILY@1800 [facility] Diltiazem HCl (Cardizem) 30 mg PO QID [facility] Last Admin: 10/20/16 12:59 Dose: 30 mg Metoprolol Tartrate (Lopressor) 25 mg PO DAILY [facility] Last Admin: 10/20/16 09:50 Dose: 25 mg Oxycodone/Acetaminophen (Percocet 5/325 Mg Tab) 1 tab PO Q6H PRN PRN Reason: Pain, severe (8-10) Stop: 10/22/16 18:56 Last Admin: 10/20/16 12:59 Dose: 1 tab Pantoprazole Sodium (Protonix Ec Tab) 40 mg PO DAILY [facility] Last Admin: 10/20/16 09:47 Dose: 40 mg Paroxetine HCl (Paxil) 40 mg PO DAILY [facility] Last Admin: 10/20/16 09:47 Dose: 40 mg Rosuvastatin Calcium (Crestor) 5 mg PO HS [facility] Last Admin: 10/19/16 21:34 Dose: 5 mg Fluticasone/Salmeterol (Advair Diskus 250/50) 1 puff INH RQ12 [facility] Last Admin: 10/20/16 09:31 Dose: Not Given - Labs Labs: 10/20/16 04:26 10/20/16 04:26 - Constitutional Appears: Well, Non-toxic, No Acute Distress - Head Exam Head Exam: ATRAUMATIC, NORMAL INSPECTION, NORMOCEPHALIC - Eye Exam Eye Exam: EOMI, Normal appearance, PERRL - ENT Exam ENT Exam: Mucous Membranes Moist, Normal Exam - Neck Exam Neck Exam: Full ROM, Normal Inspection. absent: Lymphadenopathy - Respiratory Exam Respiratory Exam: Wheezes (expiratory wheezes). absent: Rhonchi, Respiratory Distress, Stridor - GI/Abdominal Exam GI & Abdominal Exam: Soft, Normal Bowel Sounds. absent: Distended, Tenderness - Extremities Exam Extremities Exam: Full ROM, Normal Inspection - Back Exam Back Exam: NORMAL INSPECTION - Neurological Exam Neurological Exam: Alert, Awake, Oriented x3 - Psychiatric Exam Psychiatric exam: Normal Affect, Normal Mood - Skin Skin Exam: Normal Color Assessment and Plan (1) Chest pain Assessment & Plan: Observe on telemetry Aspirin 81mg PO 1x daily Metoprolol Tartrate 25mg daily Cardizem 30mg 4x pe day Digoxin .125 mg tab PO daily restarted 10/20 ECHO (06/06/16): Left atrial enlarged, right atrium dilated, LV:60%, ECHO ordered for 10/21 ROMIs negative x 3 EKGs reviewed x3 with no ischemic changes. Reviewed lipid panel, no indication for statin at this time CT dissection ordered Cardio Consult ordered, Dr. Idris Taylor, help appreciated Status: Acute (2) Chronic pain Assessment & Plan: History of stenosis, right rotator cuff tear * MS Contin extended release 15 mg 1q12h PRN * Percocet 5/325 q6h PRN Status: Acute (3) Psychiatric diagnosis Assessment & Plan: History of PTSD, Anxiety, Bipolar, Depression * currently denies suicidal ideations, stable on current medications * 40mg Paxil once daily * 150mg wellbutrin once daily * 0.5mg xanax once daily as needed Status: Acute (4) COPD (chronic obstructive pulmonary disease) Assessment & Plan: Controlled,good SpO2 on room air Duonebs [id number] PRN for shortness of breath 250/50 Advair 1 puff q12 hours Status: Chronic (5) Atrial fibrillation Assessment & Plan: Metoprolol Tartrate 25mg daily Cardizem 30mg 4x pe day Rate controlled at this time. HASBLED:2 CHADS:1 and aspirin 81mg PO daily Status: Chronic (6) Rectal bleeding Assessment & Plan: monitor H/H, Hgb stable Stool OB negative, likely secondary to hemorrhoids seen on physical exam As per GI consult, Dr. Garcia, consult appreciated: Check CT A/P with PO/IV contrast HCV to be treated as outpatient EGD/Colonoscopy to be performed as outpatient Status: Acute (7) Hepatitis C Assessment & Plan: Patient instructed to follow up with GI treatment as outpatient. Status: Chronic (8) Prophylactic measure Assessment & Plan: SCDS bilateral 40mg protonix daily Heparin 5000u sc q8h. Status: Acute <Lupe Bowen V - Last Filed: 10/21/16 09:41> Objective - Vital Signs/Intake and Output Vital Signs (last 24 hours): Temp Pulse Resp BP Pulse Ox 98.0 F 72 20 110/70 98 10/21/16 04:00 10/21/16 04:00 10/21/16 04:00 10/21/16 04:00 10/21/16 04:00 Intake and Output: 10/21/16 10/21/16 06:59 18:59 Intake Total 350 Balance 350 - Medications Medications: Current Medications Albuterol/Ipratropium (Duoneb 3 Mg/0.5 Mg (3 Ml) Ud) 3 ml INH RQ4 [facility] Last Admin: 10/21/16 04:21 Dose: Not Given Alprazolam (Xanax) 0.5 mg PO DAILY [facility] Last Admin: 10/20/16 21:35 Dose: 0.5 mg Aspirin (Aspirin Chewable) 81 mg PO DAILY [facility] Last Admin: 10/20/16 09:48 Dose: 81 mg Bupropion HCl (Wellbutrin Sr 150 Mg) 150 mg PO DAILY [facility] Last Admin: 10/20/16 09:47 Dose: 150 mg Digoxin (Lanoxin) 0.125 mg PO DAILY@1800 [facility] Last Admin: 10/20/16 17:53 Dose: 0.125 mg Diltiazem HCl (Cardizem) 30 mg PO QID [facility] Last Admin: 10/20/16 21:39 Dose: 30 mg Metoprolol Tartrate (Lopressor) 25 mg PO DAILY [facility] Last Admin: 10/20/16 09:50 Dose: 25 mg Morphine Sulfate (Morphine Extended Release Tab) 15 mg PO Q12 [facility] Last Admin: 10/20/16 21:35 Dose: 15 mg Oxycodone/Acetaminophen (Percocet 5/325 Mg Tab) 1 tab PO Q6H PRN PRN Reason: Pain, severe (8-10) Stop: 10/22/16 18:56 Last Admin: 10/20/16 12:59 Dose: 1 tab Pantoprazole Sodium (Protonix Ec Tab) 40 mg PO DAILY [facility] Last Admin: 10/20/16 09:47 Dose: 40 mg Paroxetine HCl (Paxil) 40 mg PO DAILY [facility] Last Admin: 10/20/16 09:47 Dose: 40 mg Rosuvastatin Calcium (Crestor) 5 mg PO HS [facility] Last Admin: 10/20/16 23:30 Dose: 5 mg Fluticasone/Salmeterol (Advair Diskus 250/50) 1 puff INH RQ12 [facility] Last Admin: 10/20/16 20:51 Dose: Not Given - Labs Labs: 10/21/16 06:53 10/20/16 04:26 Attending/Attestation - Attestation I have personally seen and examined this patient.: Yes I have fully participated in the care of the patient.: Yes I have reviewed all pertinent clinical information, including history, physical exam and plan: Yes Notes (Text): This is a late computer entry for 10/20/16. Patient seen, examined, and case discussed with day-time resident. Patient reports chest pain is better compared to yesterday. Patient on telemetry is in atrial fibrillation, rate controlled. patient reports to me at bedside he is having many episodes of diarrhea, denies recent hospitalizations, denies recent antibiotics, denies take out food, and when I speak with his nurse , she has not seen the patient use the bathroom to qualify his diarrhea. patient reports he was recommended 3 years ago for a stress test, but he did not have one due to lack of insurance. Cardiology (Dr. Idris taylor) electronic publications specialist-->f/u further recommendations. Order for echocardiogram Ordered for CT dissection study, low suspicion; but reports he has chest pain that goes down the back and shoulder. Patient is on narcotic medication to help with chronic pain conditions rotator cuff shoulder (right), and spinal stenosis. Held anticoagulation until patient completes study. We qualified his pain regimen with his PMD in the clinic and restarted his pain therapy GI consult-->help appreciated Patient underwent CT abdomen/Pelvis per GI, which showed non-obstructing renal stones. Assessment/Plan 1.) Chest Pain * Observe to telemetry * In the ED, Aspirin 325mg POx1 * Will start Aspirin 81mg PO 1x daily * c/w Metoprolol Tartrate 25mg daily HOLD SBP<100 and HR<60 * c/w Cardizem 30mg 4x aday HOLD SBP<100 and HR<60 * ОЛЕГ X 3 negative * ECHO (06/06/16): Left atrial enlarged, right atrium dilated, LV:60% * HgA1C: 5.6 * Lipid Panel: within normal * TSH: within normal 2.) Rectal Bleeding * Stool occult blood ordered and rectal performed by resident with consent by patient; negative * monitor H/H; appears stable * GI Consult: Dr Tim/ GI Fellow Dr. Riggs --> help appreciated * Protonix 40mg PO daily * Patient is currently on Aspirin 81mg PO daily and has been off Xarelto confirmed in both [employer] and [email or web address] EMR due to noncompliance * CT Abdomen/Pelvis (10/20/16): nonobstructing renal stones 3.) Chronic Pain * History of spinal stenosis, extensive right rotator cuff tear * Urine Drug Screen ordered-->confirmed opiate use * Start Percocet 1 tab 5/325 q6h PRN pain * Start MsContin 15mg PO Q 12hours 4.) History of PTSD, Anxiety, Bipolar, Depression * c/w Paxil 40mg PO daily * c/w Wellbutrin 150mg daily * c/w xanax 0.5mg PO daily as needed 5.) Hyperlipidemia * c/w Crestor 5mg POqHS * Lipid Panel: within normal limits 6.) History of COPD * Patient is not in active exacerbation * Duonebs [id number] PRN for shortness of breath * Advair 250/50 1 puff q12 hours 7.) History of Atrial Fibrillation * c/w Metoprolol Tartrate 25mg daily Hold SBP<100 and HR<60 * c/w Cardizem 30mg QID Hold SBP<100 and HR<60 * patient has been off Xarelto due possible surgery for rotator cuff; will remain off given complaint of rectal bleeding * HASBLED:2 * CHADS:1 (HTN) * c/w Aspirin 81mg PO daily 8.) History of Hepatitis C * not on current therapy at this time 9.) Prophylactic Treatment * SCDS bilateral * Protonix 40mg PO daily for GI ppx * Contraindications to VTE due to rectal bleeding
[2016-10-20 16:27] VITALS: RESP 20
[2016-10-20] MEDS: Digoxin 125 mcg (0.125 mg) Tab PO SCH (17:53)
[2016-10-20] MEDS: Morphine 15 mg SR Tab PO SCH (21:35)
[2016-10-21] MEDS: Albuterol-Ipratrop 3 mg / 0.5 (3 ml) UD INH SCH ×6 (01:17→20:47)
[2016-10-21 07:07] LABS: BASO % 0.6 % (0.0-2.0); EOS # 0.2 K/uL (0.0-0.7); EOS % 3.4 % (0.0-4.0); HEMATOCRIT 42.5 % (35.0-51.0); LYMPH % 31.9 % (20.0-40.0); MEAN CELL VOLUME 91.8 fL (80.0-94.0); MEAN CORPUSCULAR HEMOGLOBIN 30.8 pg (27.0-31.0); MEAN CORPUSCULAR HGB CONC 33.5 g/dL (33.0-37.0); MEAN PLATELET VOLUME 7.7 fL (7.2-11.7); MONO # 0.6 K/uL (0.0-0.8); MONO % 10.1 % (0.0-10.0); NRBC % 0.2 % (0.0-2.0); RED CELL DISTRIBUTION WIDTH 13.5 % (11.5-14.5); WHITE BLOOD COUNT 6.4 K/uL (4.8-10.8)
[2016-10-21 07:28] LABS: CHLORIDE 106 mmol/L (98-107)
[2016-10-21 07:29] LABS: POTASSIUM 4.3 mmol/L (3.6-5.2); SODIUM 141 mmol/L (132-148)
[2016-10-21] MEDS: Oxycodone/Acetaminophen 5/325 mg Tab PO PRN ×2 (07:29→17:38)
[2016-10-21 07:31] LABS: ALB/GLOB RATIO 1.1 (1.0-2.1); ALKALINE PHOSPHATASE 88 U/L (38-126); ALT/SGPT 43 U/L (21-72); AST/SGOT 34 U/L (17-59); BILIRUBIN,TOTAL 0.7 mg/dL (0.2-1.3); BLOOD UREA NITROGEN 17 mg/dL (9-20); CARBON DIOXIDE 26 mmol/L (22-30); GFR AFRICAN-AMERICAN > 60; GLUCOSE,RANDOM 96 mg/dL (75-110); TOTAL PROTEIN 7.3 g/dL (6.3-8.3)
[2016-10-21 07:32] LABS: CALCIUM 9.3 mg/dl (8.6-10.4); MAGNESIUM 2.2 mg/dL (1.6-2.3)
--- NOTE | 2016-10-21 08:44 | CP.PCM.PN ---
<Nick Neil - Last Filed: 10/21/16 08:46> Subjective - Date & Time of Evaluation Date of Evaluation: 10/21/16 Time of Evaluation: 06:50 - Subjective Subjective: PGY4 GI Fellow Progress Note Patient seen and examined bedside this morning. The patient admits to 5 episodes of loose stool yesterday and once this morning. He has no abdominal pain, fever, chills. Chest pain improved. 12 system ROS performed and negative except where stated. Objective - Vital Signs/Intake and Output Vital Signs (last 24 hours): Temp Pulse Resp BP Pulse Ox 98.0 F 72 20 110/70 98 10/21/16 04:00 10/21/16 04:00 10/21/16 04:00 10/21/16 04:00 10/21/16 04:00 Intake and Output: 10/21/16 10/21/16 06:59 18:59 Intake Total 350 Balance 350 - Medications Medications: Current Medications Albuterol/Ipratropium (Duoneb 3 Mg/0.5 Mg (3 Ml) Ud) 3 ml INH RQ4 [facility] Last Admin: 10/21/16 04:21 Dose: Not Given Alprazolam (Xanax) 0.5 mg PO DAILY [facility] Last Admin: 10/20/16 21:35 Dose: 0.5 mg Aspirin (Aspirin Chewable) 81 mg PO DAILY [facility] Last Admin: 10/20/16 09:48 Dose: 81 mg Bupropion HCl (Wellbutrin Sr 150 Mg) 150 mg PO DAILY [facility] Last Admin: 10/20/16 09:47 Dose: 150 mg Digoxin (Lanoxin) 0.125 mg PO DAILY@1800 [facility] Last Admin: 10/20/16 17:53 Dose: 0.125 mg Diltiazem HCl (Cardizem) 30 mg PO QID [facility] Last Admin: 10/20/16 21:39 Dose: 30 mg Metoprolol Tartrate (Lopressor) 25 mg PO DAILY [facility] Last Admin: 10/20/16 09:50 Dose: 25 mg Morphine Sulfate (Morphine Extended Release Tab) 15 mg PO Q12 [facility] Last Admin: 10/20/16 21:35 Dose: 15 mg Oxycodone/Acetaminophen (Percocet 5/325 Mg Tab) 1 tab PO Q6H PRN PRN Reason: Pain, severe (8-10) Stop: 10/22/16 18:56 Last Admin: 10/21/16 07:29 Dose: 1 tab Pantoprazole Sodium (Protonix Ec Tab) 40 mg PO DAILY [facility] Last Admin: 10/20/16 09:47 Dose: 40 mg Paroxetine HCl (Paxil) 40 mg PO DAILY [facility] Last Admin: 10/20/16 09:47 Dose: 40 mg Rosuvastatin Calcium (Crestor) 5 mg PO HS [facility] Last Admin: 10/20/16 23:30 Dose: 5 mg Fluticasone/Salmeterol (Advair Diskus 250/50) 1 puff INH RQ12 [facility] Last Admin: 10/20/16 20:51 Dose: Not Given - Labs Labs: 10/21/16 06:53 10/21/16 06:53 - Constitutional Appears: Non-toxic, No Acute Distress - Eye Exam Eye Exam: EOMI, PERRL - ENT Exam ENT Exam: Mucous Membranes Moist - Respiratory Exam Respiratory Exam: Clear to Ausculation Bilateral. absent: Rales, Rhonchi, Wheezes - Cardiovascular Exam Cardiovascular Exam: Irregular Rhythm, +S1, +S2 Additional comments: regular rate - GI/Abdominal Exam GI & Abdominal Exam: Soft, Normal Bowel Sounds. absent: Distended, Firm, Guarding, Rigid, Tenderness, Organomegaly - Extremities Exam Extremities Exam: Normal Inspection. absent: Pedal Edema - Neurological Exam Neurological Exam: Alert, Awake, Oriented x3 - Psychiatric Exam Psychiatric exam: Normal Affect, Normal Mood - Skin Skin Exam: Dry, Warm Assessment and Plan - Assessment and Plan (Free Text) Assessment: Patient is a 61yo male with PMHx significant for atrial fibrillation previously on Xarelto, COPD, spinal stenosis, HCV (Tx naive, GT 1a, unknown viral load), multiple TIA who presented to the ED with chest pain -Chest pain, resolved -Atrial fibrillation with RVR, resolved at present; not on anticoagulation -Acute diarrheal illness -Hematochezia, resolved -Hemorrhoids -HCV genotype 1a, treatment naive Plan: -Cardiac work up per primary service, cardiology -CT A/P unremarkable for GI pathology -Hemorrhoids on rectal examination yesterday - topical medications to be ordered if needed -Supportive care for diarrheal illness, can use anti-diarrheal agents like loperamide short term -HCV to be treated outpatient on follow up -Fibrosure grade 2 noted -Patient would benefit from EGD/Colonoscopy, can be performed as an outpatient, once acute issues have resolved -Patient not on anticoagulation given hx of epistaxis, nonadherent to therapy -Will sign off. Thank you for allowing us to participate in the care of your patient. <Rafael Garcia - Last Filed: 10/21/16 19:20> Objective - Vital Signs/Intake and Output Vital Signs (last 24 hours): Temp Pulse Resp BP Pulse Ox 97.4 F L 70 20 101/58 L 96 10/21/16 15:53 10/21/16 15:53 10/21/16 15:53 10/21/16 15:53 10/21/16 15:53 - Medications Medications: Current Medications Albuterol/Ipratropium (Duoneb 3 Mg/0.5 Mg (3 Ml) Ud) 3 ml INH RQ4 [facility] Last Admin: 10/21/16 15:52 Dose: 3 ml Alprazolam (Xanax) 0.5 mg PO DAILY [facility] Last Admin: 10/21/16 10:50 Dose: 0.5 mg Aspirin (Aspirin Chewable) 81 mg PO DAILY [facility] Last Admin: 10/21/16 10:50 Dose: 81 mg Bupropion HCl (Wellbutrin Sr 150 Mg) 150 mg PO DAILY [facility] Last Admin: 10/21/16 10:49 Dose: 150 mg Digoxin (Lanoxin) 0.125 mg PO DAILY@1800 [facility] Last Admin: 10/21/16 17:38 Dose: 0.125 mg Diltiazem HCl (Cardizem) 30 mg PO QID [facility] Last Admin: 10/21/16 17:37 Dose: 30 mg Sodium Chloride (Sodium Chloride 0.9%) 1,000 mls @ 100 mls/hr IV .Q10H [facility] Metoprolol Tartrate (Lopressor) 25 mg PO DAILY [facility] Last Admin: 10/21/16 10:50 Dose: 25 mg Morphine Sulfate (Morphine Extended Release Tab) 15 mg PO Q12 [facility] Last Admin: 10/21/16 10:50 Dose: 15 mg Oxycodone/Acetaminophen (Percocet 5/325 Mg Tab) 1 tab PO Q6H PRN PRN Reason: Pain, severe (8-10) Stop: 10/22/16 18:56 Last Admin: 10/21/16 17:38 Dose: 1 tab Pantoprazole Sodium (Protonix Ec Tab) 40 mg PO DAILY [facility] Last Admin: 10/21/16 10:50 Dose: 40 mg Paroxetine HCl (Paxil) 40 mg PO DAILY [facility] Last Admin: 10/21/16 10:49 Dose: 40 mg Rosuvastatin Calcium (Crestor) 5 mg PO HS [facility] Last Admin: 10/20/16 23:30 Dose: 5 mg Fluticasone/Salmeterol (Advair Diskus 250/50) 1 puff INH RQ12 [facility] Last Admin: 10/21/16 10:47 Dose: 1 puff Attending/Attestation - Attestation I have personally seen and examined this patient.: Yes I have fully participated in the care of the patient.: Yes I have reviewed all pertinent clinical information, including history, physical exam and plan: Yes Notes (Text): 10/21/16 19:19 61 year old male with h/o afib, COPD, spinal stenosis, HCV, multiple TIA admitted with chest pain, also with diarrhea and BRBPR. 1. Hematochezia 2. Diarrhea 3. Chronic hepatitis C Plan: -CT A/P unremarkable -recommend elective outpatient EGD/Colonoscopy once acute issues resolved/ cardiac evaluation is completed -bleeding is most likely hemorrhoidal and can be treated with topic ointments like anusol/proctosol as well as fiber supplementation -needs outpatient follow up for consideration of hepatitis C therapy
[2016-10-21] MEDS ORDERED: Iodixanol 320 mg/ml 150 ml Bottle IV ONE (10:22)
[2016-10-21] MEDS: Fluticasone-Salmeterol 250-50mcg Diskus INH SCH (10:47)
[2016-10-21] MEDS: buPROPion SR 150 MG TABLET PO SCH (10:49)
[2016-10-21] MEDS: Pantoprazole 40 mg EC Tab PO SCH (10:50)
[2016-10-21] MEDS: Morphine 15 mg SR Tab PO SCH ×2 (10:50→22:31)
--- NOTE | 2016-10-21 11:19 | CT ---
PROCEDURE: CT HEAD WITHOUT CONTRAST. HISTORY: severe headache COMPARISON: 08/22/2016 TECHNIQUE: Axial computed tomography images were obtained through the head/brain without intravenous contrast. Radiation dose: Total exam DLP = 1687.50 mGy-cm. This CT exam was performed using one or more of the following dose reduction techniques: Automated exposure control, adjustment of the mA and/or kV according to patient size, and/or use of iterative reconstruction technique. FINDINGS: HEMORRHAGE: No intracranial hemorrhage. BRAIN: No mass effect or edema. No atrophy or chronic microvascular ischemic changes. VENTRICLES: Unremarkable. No hydrocephalus. CALVARIUM: Unremarkable. PARANASAL SINUSES: Mild chronic sphenoid and ethmoid sinusitis. MASTOID AIR CELLS: Unremarkable as visualized. No inflammatory changes. OTHER FINDINGS: None. IMPRESSION: Mild chronic sphenoid and ethmoid sinusitis. No intracranial mass, hemorrhage or evidence of acute infarct.
--- NOTE | 2016-10-21 11:27 | CARD ---
APPROVED REPORT EXAM: Two-dimensional and M-mode echocardiogram with Doppler and color Doppler. Other Information Quality : GoodRhythm : NSR INDICATION Chest Pain Palpitations HX TIA M-Mode DIMENSIONS RVDd1.03 (2.1-3.2cm)Left Atrium (MM)3.65 (2.5-4.0cm) IVSd1.29 (0.7-1.1cm)Aortic Root2.88 (2.2-3.7cm) LVDd4.87 (4.0-5.6cm)Aortic Cusp Exc.2.14 (1.5-2.0cm) PWd1.25 (0.7-1.1cm)FS (%) 35 % LVDs3.17 (2.0-3.8cm)LVEF (%)64 (>50%) Aortic Valve AoV Peak Yvmfyzxh862.1cm/Kenia Peak GR.9mmHg Mitral Valve MV E Eyknwwvi79.8cm/sMV A Ercqlame56.5cm/sE/A ratio1.2 TDI E/Lateral E'0.0E/Medial E'0.0 Tricuspid Valve TR Peak [id number]/sTR Peak Gr.21dtSeHVFQ27zbOp LEFT VENTRICLE The left ventricle is normal size. There is borderline to mild concentric left ventricular hypertrophy. The left ventricular systolic function is normal. The left ventricular ejection fraction is within the normal range. There is normal LV segmental wall motion. The left ventricular diastolic function is normal. RIGHT VENTRICLE The right ventricle is normal size. The right ventricular systolic function is normal. ATRIA The left atrium size is normal. The right atrium size is normal. AORTIC VALVE The aortic valve is normal in structure. No aortic regurgitation is present. MITRAL VALVE The mitral valve is normal in structure. There is no mitral valve regurgitation noted. TRICUSPID VALVE The tricuspid valve is normal in structure. There is trace to mild tricuspid regurgitation. PULMONIC VALVE The pulmonary valve is normal in structure. GREAT VESSELS The aortic root is normal in size. The IVC is normal in size and collapses >50% with inspiration. PERICARDIAL EFFUSION There is no pericardial effusion. <Conclusion> There is borderline to mild concentric left ventricular hypertrophy. The left ventricular systolic function is normal. The right ventricular systolic function is normal. No valvular abnormality. There is no pericardial effusion.
--- NOTE | 2016-10-21 11:41 | CT ---
PROCEDURE: CT Angiography Chest, Abdomen and Pelvis with and without intravenous contrast HISTORY: r/o dissection, chest pain COMPARISON: None. TECHNIQUE: Contiguous axial images of the chest, abdomen and pelvis were obtained in the phase of aortic enhancement. A noncontrast enhanced CT of the chest was also obtained to evaluate for possible intramural thrombus. Coronal and sagittal reformats were generated. IV dose administered: 100 mL Visipaque Radiation dose: Total exam DLP = 320 1117.56 mGy-cm. This CT exam was performed using one or more of the following dose reduction techniques: Automated exposure control, adjustment of the mA and/or kV according to patient size, and/or use of iterative reconstruction technique. FINDINGS: CT ANGIOGRAPHY OF THE CHEST WITH & WITHOUT CONTRAST: AORTA (CHEST AND ABDOMEN): The thoracic and abdominal aorta are unremarkable, without aneurysm, dissection or rupture. No intramural thrombus identified in the thoracic aorta on the non-contrast ct of the chest. The celiac axis, superior mesenteric artery, inferior mesenteric artery and the renal arteries are widely patent. The pelvic arteries are unremarkable. LUNGS: Clear. No nodule, mass or consolidation. MEDIASTINUM: Unremarkable. Normal caliber aorta and pulmonary arterial trunk. No aortic dissection. Normal size heart. LYMPH NODES: Unremarkable. PLEURA: Unremarkable. No pneumothorax. No pleural fluid. BONES: There is compression deformity of the T8 vertebra with ankylosis at T8-T9. This is likely the result of prior discitis/osteomyelitis demonstrated on MRI examination of 07/09/2015. There is no other fracture identified. There is grade 1 retrolisthesis at L4-5 and grade 1 anterolisthesis at L5-S1. There is no spondylolysis. OTHER FINDINGS: None. CT ANGIOGRAPHY OF THE ABDOMEN AND PELVIS WITH CONTRAST: LIVER: Unremarkable. No gross lesion or ductal dilatation. GALLBLADDER AND BILE DUCTS: Unremarkable. PANCREAS: Unremarkable. No gross lesion or ductal dilatation. SPLEEN: Unremarkable. ADRENALS: Unremarkable. No mass. KIDNEYS AND URETERS: Multiple bilateral nonobstructing renal calculi. These are seen in the upper and lower pole of the right kidney and in the upper pole of the left kidney. No large calculi. No hydronephrosis. Evaluation for renal masses is limited by a imaging only in the arterial phase of enhancement. 8 mm low-density lesion mid right kidney, likely cyst. VASCULATURE: Unremarkable. No aortic aneurysm. STOMACH AND BOWEL: Unremarkable. No obstruction. No gross mural thickening. APPENDIX: Not included PERITONEUM: Unremarkable. No free fluid. No free air. LYMPH NODES: Unremarkable. No enlarged lymph nodes. BLADDER: Not included REPRODUCTIVE: Not included BONES: As above OTHER FINDINGS: None. IMPRESSION: No evidence of thoracic/ abdominal aortic dissection. No evidence of aortic aneurysm. Bilateral small nonobstructing renal calculi. Compression deformity of the T8 vertebra with ankylosis at T8 and T9
--- NOTE | 2016-10-21 12:22 | CP.PCM.PN ---
Subjective - Date & Time of Evaluation Date of Evaluation: 10/21/16 Time of Evaluation: 12:20 - Subjective Subjective: PT C/O INTERMITTENT CHEST PAIN. EKG NSR. NO SOB. ECHO DONE TODAY. DIARRHOEA PRESENT. CARDIAC ENZYMES NEG. Objective - Vital Signs/Intake and Output Vital Signs (last 24 hours): Temp Pulse Resp BP Pulse Ox 98.3 F 80 20 115/74 97 10/21/16 08:45 10/21/16 11:00 10/21/16 08:45 10/21/16 10:50 10/21/16 08:45 Intake and Output: 10/21/16 10/21/16 06:59 18:59 Intake Total 350 Balance 350 - Medications Medications: Current Medications Albuterol/Ipratropium (Duoneb 3 Mg/0.5 Mg (3 Ml) Ud) 3 ml INH RQ4 [facility] Last Admin: 10/21/16 10:59 Dose: 3 ml Alprazolam (Xanax) 0.5 mg PO DAILY [facility] Last Admin: 10/21/16 10:50 Dose: 0.5 mg Aspirin (Aspirin Chewable) 81 mg PO DAILY [facility] Last Admin: 10/21/16 10:50 Dose: 81 mg Bupropion HCl (Wellbutrin Sr 150 Mg) 150 mg PO DAILY [facility] Last Admin: 10/21/16 10:49 Dose: 150 mg Digoxin (Lanoxin) 0.125 mg PO DAILY@1800 [facility] Last Admin: 10/20/16 17:53 Dose: 0.125 mg Diltiazem HCl (Cardizem) 30 mg PO QID [facility] Last Admin: 10/21/16 10:50 Dose: 30 mg Metoprolol Tartrate (Lopressor) 25 mg PO DAILY [facility] Last Admin: 10/21/16 10:50 Dose: 25 mg Morphine Sulfate (Morphine Extended Release Tab) 15 mg PO Q12 [facility] Last Admin: 10/21/16 10:50 Dose: 15 mg Oxycodone/Acetaminophen (Percocet 5/325 Mg Tab) 1 tab PO Q6H PRN PRN Reason: Pain, severe (8-10) Stop: 10/22/16 18:56 Last Admin: 10/21/16 07:29 Dose: 1 tab Pantoprazole Sodium (Protonix Ec Tab) 40 mg PO DAILY [facility] Last Admin: 10/21/16 10:50 Dose: 40 mg Paroxetine HCl (Paxil) 40 mg PO DAILY [facility] Last Admin: 10/21/16 10:49 Dose: 40 mg Rosuvastatin Calcium (Crestor) 5 mg PO HS [facility] Last Admin: 10/20/16 23:30 Dose: 5 mg Fluticasone/Salmeterol (Advair Diskus 250/50) 1 puff INH RQ12 [facility] Last Admin: 10/21/16 10:47 Dose: 1 puff - Labs Labs: 10/21/16 06:53 10/21/16 06:53 - Constitutional Appears: Non-toxic, Chronically Ill - Eye Exam Eye Exam: Normal appearance, PERRL - ENT Exam ENT Exam: Mucous Membranes Moist - Neck Exam Neck Exam: Normal Inspection - Respiratory Exam Respiratory Exam: Clear to Ausculation Bilateral, NORMAL BREATHING PATTERN - Cardiovascular Exam Cardiovascular Exam: REGULAR RHYTHM, +S1, +S2 - GI/Abdominal Exam GI & Abdominal Exam: Soft, Normal Bowel Sounds - Rectal Exam Rectal Exam: Deferred - Exam External exam: NORMAL EXTERNAL EXAM - Extremities Exam Extremities Exam: Normal Inspection - Neurological Exam Neurological Exam: Alert, Awake, CN II-XII Intact, Normal Gait, Oriented x3 - Psychiatric Exam Psychiatric exam: Normal Affect, Normal Mood Assessment and Plan - Assessment and Plan (Free Text) Assessment: CHEST PAIN. A. FIB. Plan: CHECK ECHO. NEEDS STRESS MYOVIEW TEST TO R/0 CAD.
--- NOTE | 2016-10-21 13:22 | CON ---
DATE: 10/21/2016 HISTORY OF PRESENT ILLNESS: This is a 61-year-old white male who came to the Emergency Room with his tory of severe chest pain, heavy and sharp in nature. The patient also complains of radiation to the left arm and neck with tingling. The patient has a history of shortness of breath. The patient als o has abdominal pain and diarrhea. The patient has cough. The patient also complains of dizziness. No history of loss of consciousness. The patient has a history of TIAs in the past. The patient is in chronic atrial fibrillation. The patient is on digoxin and other medications. The patient also uses narcotics for the back pain. REVIEW OF SYSTEMS: CARDIOVASCULAR: Mentioned as above. RESPIRATORY: Positive for cough. GASTROINTESTINAL: Positive for abdominal pain and diarrhea. CENTRAL NERVOUS SYSTEM: Tingling, numbness, left arm. Dizziness. No loss of consciousness. EXTREMITIES: No edema of the legs. GENITOURINARY: No urinary complaints. PSYCHIATRIC: The patient is stable. PAST MEDICAL HISTORY: Anxiety, arthritis, asthma, atrial fibrillation. Back problems. Bipolar diso rder. Cardiac arrhythmias, COPD, depression, hepatitis, hypertension, posttraumatic stress disorder. MEDICATIONS: Reviewed by me. FAMILY HISTORY: History of cardiac problems. SOCIAL HISTORY: Smoking present. No alcohol, no substance abuse. ALLERGIES: No known allergy. PHYSICAL EXAMINATION: GENERAL: This is a 61-year-old white male, alert, oriented, comfortable. VITAL SIGNS: Temperature 98 degrees Fahrenheit, pulse 68, respirations 20, blood pressure 125/77 mmH g, pulse ox is 97% at room air. HEENT: Normal. NECK: JVP is flat. Carotids, no bruit. LUNGS: No rales, no wheezing. HEART: S1, S2 normal. Irregular rhythm. No murmur. ABDOMEN: Soft, nontender, no organomegaly. CENTRAL NERVOUS SYSTEM: No focal neurological deficit. LABORATORY DATA: On admission, EKG shows normal sinus rhythm and atrial fibrillation at times. Card iac enzymes are negative. Chest x-ray is grossly within normal limits. The patient was given pain m edications. The patient still has chest pain off and on. IMPRESSION: Acute coronary syndrome. Possible costochondritis. Atrial fibrillation. Diarrhea. He patitis C. SUGGESTIONS: Agree with present management. The patient needs an echocardiogram. We will decide ab out exercise stress after checking echocardiogram. Other workup as needed. Carmen Mora MD cc: [id number] TT: 10/21/2016 13:21:26 Confirmation # [id number] Dictation # [id number]
[2016-10-21] MEDS ORDERED: Sodium Chloride 0.9% 1,000 ML IV SCH (13:30)
--- NOTE | 2016-10-21 15:56 | CP.PCM.PN ---
<Judi Delgado - Last Filed: 10/21/16 19:13> Subjective - Date & Time of Evaluation Date of Evaluation: 10/21/16 Time of Evaluation: 07:00 - Subjective Subjective: PGY 1 Medicine Note- Dr. Bowen's Service Patient seen and examined at bedside and is in no acute distress. Patient admits to having midline chest pain 6/10 compared to 7/10 yesterday, palpitations, and left arm tingling. Patient also admits that he has had diarrhea 3 times which is watery and brown. No blood is seen in the stool. Patient complains of headache 02/08 behind the eyes. Objective - Vital Signs/Intake and Output Vital Signs (last 24 hours): Temp Pulse Resp BP Pulse Ox 97.4 F L 70 20 101/58 L 96 10/21/16 15:53 10/21/16 15:53 10/21/16 15:53 10/21/16 15:53 10/21/16 15:53 - Medications Medications: Current Medications Albuterol/Ipratropium (Duoneb 3 Mg/0.5 Mg (3 Ml) Ud) 3 ml INH RQ4 [facility] Last Admin: 10/21/16 15:52 Dose: 3 ml Alprazolam (Xanax) 0.5 mg PO DAILY [facility] Last Admin: 10/21/16 10:50 Dose: 0.5 mg Aspirin (Aspirin Chewable) 81 mg PO DAILY [facility] Last Admin: 10/21/16 10:50 Dose: 81 mg Bupropion HCl (Wellbutrin Sr 150 Mg) 150 mg PO DAILY [facility] Last Admin: 10/21/16 10:49 Dose: 150 mg Digoxin (Lanoxin) 0.125 mg PO DAILY@1800 [facility] Last Admin: 10/20/16 17:53 Dose: 0.125 mg Diltiazem HCl (Cardizem) 30 mg PO QID [facility] Last Admin: 10/21/16 13:24 Dose: 30 mg Sodium Chloride (Sodium Chloride 0.9%) 1,000 mls @ 100 mls/hr IV .Q10H [facility] Metoprolol Tartrate (Lopressor) 25 mg PO DAILY [facility] Last Admin: 10/21/16 10:50 Dose: 25 mg Morphine Sulfate (Morphine Extended Release Tab) 15 mg PO Q12 [facility] Last Admin: 10/21/16 10:50 Dose: 15 mg Oxycodone/Acetaminophen (Percocet 5/325 Mg Tab) 1 tab PO Q6H PRN PRN Reason: Pain, severe (8-10) Stop: 10/22/16 18:56 Last Admin: 10/21/16 07:29 Dose: 1 tab Pantoprazole Sodium (Protonix Ec Tab) 40 mg PO DAILY [facility] Last Admin: 10/21/16 10:50 Dose: 40 mg Paroxetine HCl (Paxil) 40 mg PO DAILY [facility] Last Admin: 10/21/16 10:49 Dose: 40 mg Rosuvastatin Calcium (Crestor) 5 mg PO HS [facility] Last Admin: 10/20/16 23:30 Dose: 5 mg Fluticasone/Salmeterol (Advair Diskus 250/50) 1 puff INH RQ12 [facility] Last Admin: 10/21/16 10:47 Dose: 1 puff - Constitutional Appears: Well, Non-toxic, No Acute Distress - Head Exam Head Exam: ATRAUMATIC, NORMAL INSPECTION, NORMOCEPHALIC - Eye Exam Eye Exam: EOMI, Normal appearance, PERRL - ENT Exam ENT Exam: Mucous Membranes Moist, Normal Exam - Neck Exam Neck Exam: Full ROM, Normal Inspection. absent: Lymphadenopathy - Respiratory Exam Respiratory Exam: Wheezes (minimal expiratory wheezes ), NORMAL BREATHING PATTERN - Cardiovascular Exam Cardiovascular Exam: REGULAR RHYTHM, RRR, +S1, +S2. absent: Gallop, Rubs, Murmur - GI/Abdominal Exam GI & Abdominal Exam: Soft, Normal Bowel Sounds. absent: Distended, Firm, Tenderness - Extremities Exam Extremities Exam: Full ROM, Normal Inspection. absent: Pedal Edema, Tenderness - Back Exam Back Exam: NORMAL INSPECTION. absent: paraspinal tenderness, rash noted - Neurological Exam Neurological Exam: Alert, Awake, Oriented x3 - Psychiatric Exam Psychiatric exam: Normal Affect, Normal Mood - Skin Skin Exam: Normal Color, Warm Assessment and Plan (1) Chest pain Assessment & Plan: Observe on telemetry Aspirin 81mg PO 1x daily Metoprolol Tartrate 25mg daily Cardizem 30mg 4x pe day Digoxin .125 mg tab PO daily restarted 10/20 ECHO (06/06/16): Left atrial enlarged, right atrium dilated, LV:60%, ECHO ordered for 10/21 ROMIs negative x 3 EKGs reviewed x3 with no ischemic changes. Reviewed lipid panel, no indication for statin at this time CT dissection: no evidence of thoracic/ abdominal aortic dissection. no evidence of aortic aneurysm. EKG ordered ОЛЕГ x1 (10/21) negative Echo: Borderline to mild concentric left ventricular hypertrophy. Left ventricular systolic function normal. Right ventricular systolic function normal. No valvular abnormality. No pericardial effusion. Cardio Dr. Idris Mora to perform stress test to r/o CAD. Status: Acute (2) Chronic pain Assessment & Plan: History of stenosis, right rotator cuff tear * MS Contin extended release 15 mg 1q12h PRN * Percocet 5/325 q6h PRN * Morphine Sulfate 15mg PO Q12 Status: Acute (3) Psychiatric diagnosis Assessment & Plan: History of PTSD, Anxiety, Bipolar, Depression * currently denies suicidal ideations, stable on current medications * 40mg Paxil once daily * 150mg wellbutrin once daily * 0.5mg xanax once daily as needed Status: Acute (4) COPD (chronic obstructive pulmonary disease) Assessment & Plan: Controlled,good SpO2 on room air Duonebs [id number] PRN for shortness of breath 250/50 Advair 1 puff q12 hours Status: Chronic (5) Atrial fibrillation Assessment & Plan: Metoprolol Tartrate 25mg daily Cardizem 30mg 4x per day Rate controlled at this time. HASBLED:2 CHADS:1 and aspirin 81mg PO daily Status: Chronic (6) Diarrhea Assessment & Plan: Watery diarrhea. Stool cultures. Status: Acute (7) Headache Assessment & Plan: Patient having 10/[address] head : Mild chronic sphenoid and ethmoid sinusitis. No intracranial mass, hemorrhage or evidence of acute infarct. Status: Acute (8) Rectal bleeding Assessment & Plan: monitor H/H, Hgb stable Stool OB negative, likely secondary to hemorrhoids seen on physical exam As per GI consult, Dr. Garcia, consult appreciated: Check CT A/P with PO/IV contrast HCV to be treated as outpatient EGD/Colonoscopy to be performed as outpatient Status: Acute (9) Hepatitis C Assessment & Plan: Patient instructed to follow up with GI treatment as outpatient. Status: Chronic (10) Prophylactic measure Assessment & Plan: SCDS bilateral 40mg protonix daily Heparin 5000u sc q8h. Status: Acute <Lupe Bowen V - Last Filed: 10/22/16 09:30> Objective - Vital Signs/Intake and Output Vital Signs (last 24 hours): Temp Pulse Resp BP Pulse Ox 98.2 F 68 20 118/75 98 10/22/16 07:00 10/22/16 07:00 10/22/16 07:00 10/22/16 07:00 10/22/16 07:00 Intake and Output: 10/22/16 10/22/16 06:59 18:59 Intake Total 1150 Output Total 1200 Balance -50 - Medications Medications: Current Medications Albuterol/Ipratropium (Duoneb 3 Mg/0.5 Mg (3 Ml) Ud) 3 ml INH RQ4 [facility] Last Admin: 10/22/16 07:55 Dose: 3 ml Alprazolam (Xanax) 0.5 mg PO DAILY [facility] Last Admin: 10/21/16 10:50 Dose: 0.5 mg Aspirin (Aspirin Chewable) 81 mg PO DAILY [facility] Last Admin: 10/21/16 10:50 Dose: 81 mg Bupropion HCl (Wellbutrin Sr 150 Mg) 150 mg PO DAILY [facility] Last Admin: 10/21/16 10:49 Dose: 150 mg Digoxin (Lanoxin) 0.125 mg PO DAILY@1800 [facility] Last Admin: 10/21/16 17:38 Dose: 0.125 mg Diltiazem HCl (Cardizem) 30 mg PO QID [facility] Last Admin: 10/21/16 22:34 Dose: 30 mg Sodium Chloride (Sodium Chloride 0.9%) 1,000 mls @ 100 mls/hr IV .Q10H [facility] Meclizine HCl (Antivert) 12.5 mg PO Q12 [facility] Metoprolol Tartrate (Lopressor) 25 mg PO DAILY [facility] Last Admin: 10/21/16 10:50 Dose: 25 mg Morphine Sulfate (Morphine Extended Release Tab) 15 mg PO Q12 [facility] Last Admin: 10/21/16 22:31 Dose: 15 mg Oxycodone/Acetaminophen (Percocet 5/325 Mg Tab) 1 tab PO Q6H PRN PRN Reason: Pain, severe (8-10) Stop: 10/22/16 18:56 Last Admin: 10/22/16 06:23 Dose: 1 tab Pantoprazole Sodium (Protonix Ec Tab) 40 mg PO DAILY [facility] Last Admin: 10/21/16 10:50 Dose: 40 mg Paroxetine HCl (Paxil) 40 mg PO DAILY [facility] Last Admin: 10/21/16 10:49 Dose: 40 mg Rosuvastatin Calcium (Crestor) 5 mg PO HS [facility] Last Admin: 10/21/16 22:31 Dose: 5 mg Fluticasone/Salmeterol (Advair Diskus 250/50) 1 puff INH RQ12 [facility] Last Admin: 10/22/16 07:55 Dose: 1 puff - Labs Labs: 10/22/16 07:33 10/22/16 07:33 Attending/Attestation - Attestation I have personally seen and examined this patient.: Yes I have fully participated in the care of the patient.: Yes I have reviewed all pertinent clinical information, including history, physical exam and plan: Yes Notes (Text): This is a late computer entry for 10/21/16. Patient seen, examined and case discussed with day-time resident. Patient seen in the afternoon rounds, appears comfortable, conversant, not in appear acute distress. Discussed CT head and CT abdomen/Pelvis findings with the patient. Patient is reporting diarrhea; when I speak with nursing staff, there is no observed diarrhea. Pending stool cultures. Patient changed to inpatient patient for stress test tomorrow with cardiology. GI recommended EGD/Colonoscopy to be performed as outpatient and in regards to HCV follow up with GI treatment as outpatient.
[2016-10-21] MEDS: Digoxin 125 mcg (0.125 mg) Tab PO SCH (17:38)
[2016-10-21 17:40] VITALS: PULSE 70
--- NOTE | 2016-10-21 19:44 | CARD ---
APPROVED REPORT EKG Measurement Heart [id number] <Conclusion> Atrial fibrillation with rapid ventricular response Abnormal ECG
--- NOTE | 2016-10-21 20:00 | CARD ---
APPROVED REPORT EKG Measurement Heart [id number] <Conclusion> Normal sinus rhythm Normal ECG
[2016-10-22] MEDS: Albuterol-Ipratrop 3 mg / 0.5 (3 ml) UD INH SCH ×5 (00:25→16:23)
[2016-10-22] MEDS: Oxycodone/Acetaminophen 5/325 mg Tab PO PRN (06:23)
[2016-10-22 07:49] LABS: BASO % 0.6 % (0.0-2.0); EOS # 0.2 K/uL (0.0-0.7); EOS % 4.1 % (0.0-4.0); LYMPH # 1.7 K/uL (1.0-4.3); LYMPH % 29.9 % (20.0-40.0); MEAN CELL VOLUME 92.6 fL (80.0-94.0); MEAN CORPUSCULAR HEMOGLOBIN 30.3 pg (27.0-31.0); MEAN CORPUSCULAR HGB CONC 32.7 g/dL (33.0-37.0); MEAN PLATELET VOLUME 7.7 fL (7.2-11.7); MONO # 0.5 K/uL (0.0-0.8); MONO % 9.6 % (0.0-10.0); NRBC % 0.1 % (0.0-2.0); RED CELL DISTRIBUTION WIDTH 13.4 % (11.5-14.5); WHITE BLOOD COUNT 5.6 K/uL (4.8-10.8)
[2016-10-22] MEDS: Fluticasone-Salmeterol 250-50mcg Diskus INH SCH (07:55)
[2016-10-22 08:07] LABS: CHLORIDE 107 mmol/L (98-107)
[2016-10-22 08:08] LABS: POTASSIUM 4.5 mmol/L (3.6-5.2); SODIUM 140 mmol/L (132-148)
[2016-10-22 08:10] LABS: GFR AFRICAN-AMERICAN > 60
[2016-10-22 08:11] LABS: ALB/GLOB RATIO 1.1 (1.0-2.1); ALKALINE PHOSPHATASE 66 U/L (38-126); ALT/SGPT 37 U/L (21-72); AST/SGOT 26 U/L (17-59); BILIRUBIN,TOTAL 0.7 mg/dL (0.2-1.3); BLOOD UREA NITROGEN 16 mg/dL (9-20); CARBON DIOXIDE 27 mmol/L (22-30); GLUCOSE,RANDOM 93 mg/dL (75-110); PHOSPHOROUS 2.7 mg/dL (2.5-4.5); TOTAL PROTEIN 6.4 g/dL (6.3-8.3)
[2016-10-22 08:12] LABS: CALCIUM 8.8 mg/dl (8.6-10.4); MAGNESIUM 2.1 mg/dL (1.6-2.3)
[2016-10-22] MEDS ORDERED: Aminophylline 25 mg/ml Inj ONE (08:17)
--- NOTE | 2016-10-22 09:00 | CP.PCM.PN ---
Subjective - Date & Time of Evaluation Date of Evaluation: 10/22/16 Time of Evaluation: 08:56 - Subjective Subjective: [facility] Doctor Note Patient found on floor per report, Patient states he felt dizzy after urinating and does not remember what happened. Vitals 142/70, ME 84, Glucose 94. Patient AAOx3. Neuro exam cranial nerves II-XII normal. Discussed with Dr. Idris Mora, Child Psychologist. Patient to have nuclear stress test. Discussed with house nurse staff that patient to be closely monitored. Objective - Vital Signs/Intake and Output Vital Signs (last 24 hours): Temp Pulse Resp BP Pulse Ox 97.9 F 63 20 116/63 96 10/21/16 23:40 10/22/16 01:00 10/21/16 23:40 10/21/16 23:40 10/21/16 23:40 Intake and Output: 10/22/16 10/22/16 06:59 18:59 Intake Total 1150 Output Total 1200 Balance -50 - Medications Medications: Current Medications Albuterol/Ipratropium (Duoneb 3 Mg/0.5 Mg (3 Ml) Ud) 3 ml INH RQ4 [facility] Last Admin: 10/22/16 07:55 Dose: 3 ml Alprazolam (Xanax) 0.5 mg PO DAILY [facility] Last Admin: 10/21/16 10:50 Dose: 0.5 mg Aspirin (Aspirin Chewable) 81 mg PO DAILY [facility] Last Admin: 10/21/16 10:50 Dose: 81 mg Bupropion HCl (Wellbutrin Sr 150 Mg) 150 mg PO DAILY [facility] Last Admin: 10/21/16 10:49 Dose: 150 mg Digoxin (Lanoxin) 0.125 mg PO DAILY@1800 [facility] Last Admin: 10/21/16 17:38 Dose: 0.125 mg Diltiazem HCl (Cardizem) 30 mg PO QID [facility] Last Admin: 10/21/16 22:34 Dose: 30 mg Sodium Chloride (Sodium Chloride 0.9%) 1,000 mls @ 100 mls/hr IV .Q10H [facility] Meclizine HCl (Antivert) 12.5 mg PO Q12 [facility] Metoprolol Tartrate (Lopressor) 25 mg PO DAILY [facility] Last Admin: 10/21/16 10:50 Dose: 25 mg Morphine Sulfate (Morphine Extended Release Tab) 15 mg PO Q12 [facility] Last Admin: 10/21/16 22:31 Dose: 15 mg Oxycodone/Acetaminophen (Percocet 5/325 Mg Tab) 1 tab PO Q6H PRN PRN Reason: Pain, severe (8-10) Stop: 10/22/16 18:56 Last Admin: 10/22/16 06:23 Dose: 1 tab Pantoprazole Sodium (Protonix Ec Tab) 40 mg PO DAILY [facility] Last Admin: 10/21/16 10:50 Dose: 40 mg Paroxetine HCl (Paxil) 40 mg PO DAILY [facility] Last Admin: 10/21/16 10:49 Dose: 40 mg Rosuvastatin Calcium (Crestor) 5 mg PO HS [facility] Last Admin: 10/21/16 22:31 Dose: 5 mg Fluticasone/Salmeterol (Advair Diskus 250/50) 1 puff INH RQ12 [facility] Last Admin: 10/22/16 07:55 Dose: 1 puff - Labs Labs: 10/22/16 07:33 10/22/16 07:33 - Constitutional Appears: Well - Head Exam Head Exam: ATRAUMATIC, NORMAL INSPECTION - Eye Exam Eye Exam: EOMI, Normal appearance Pupil Exam: NORMAL ACCOMODATION, PERRL - ENT Exam ENT Exam: Mucous Membranes Moist - Neck Exam Neck Exam: Full ROM, Normal Inspection - Respiratory Exam Respiratory Exam: NORMAL BREATHING PATTERN - Cardiovascular Exam Cardiovascular Exam: Irregular Rhythm - Rectal Exam Rectal Exam: Deferred - Extremities Exam Extremities Exam: Full ROM, Normal Inspection - Neurological Exam Neurological Exam: Alert, Awake, CN II-XII Intact, Oriented x3 - Psychiatric Exam Psychiatric exam: Normal Affect, Normal Mood - Skin Skin Exam: Normal Color
[2016-10-22] MEDS: Pantoprazole 40 mg EC Tab PO SCH (10:56)
[2016-10-22] MEDS: buPROPion SR 150 MG TABLET PO SCH (10:56)
--- NOTE | 2016-10-22 11:43 | CP.PCM.PN ---
Subjective - Date & Time of Evaluation Date of Evaluation: 10/22/16 Time of Evaluation: 11:40 - Subjective Subjective: pt fell down. no apparent injury. no chest pain. Objective - Vital Signs/Intake and Output Vital Signs (last 24 hours): Temp Pulse Resp BP Pulse Ox 98.2 F 68 20 118/75 98 10/22/16 07:00 10/22/16 07:00 10/22/16 07:00 10/22/16 07:00 10/22/16 07:00 Intake and Output: 10/22/16 10/22/16 06:59 18:59 Intake Total 1150 Output Total 1200 Balance -50 - Medications Medications: Current Medications Albuterol/Ipratropium (Duoneb 3 Mg/0.5 Mg (3 Ml) Ud) 3 ml INH RQ4 [facility] Last Admin: 10/22/16 07:55 Dose: 3 ml Alprazolam (Xanax) 0.5 mg PO DAILY [facility] Last Admin: 10/21/16 10:50 Dose: 0.5 mg Aspirin (Aspirin Chewable) 81 mg PO DAILY [facility] Last Admin: 10/22/16 10:55 Dose: Not Given Bupropion HCl (Wellbutrin Sr 150 Mg) 150 mg PO DAILY [facility] Last Admin: 10/22/16 10:56 Dose: Not Given Digoxin (Lanoxin) 0.125 mg PO DAILY@1800 [facility] Last Admin: 10/21/16 17:38 Dose: 0.125 mg Diltiazem HCl (Cardizem) 30 mg PO QID [facility] Last Admin: 10/22/16 10:55 Dose: Not Given Sodium Chloride (Sodium Chloride 0.9%) 1,000 mls @ 100 mls/hr IV .Q10H [facility] Last Admin: 10/22/16 10:56 Dose: 100 mls/hr Meclizine HCl (Antivert) 12.5 mg PO Q12 [facility] Last Admin: 10/22/16 10:54 Dose: Not Given Metoprolol Tartrate (Lopressor) 25 mg PO DAILY [facility] Last Admin: 10/22/16 10:55 Dose: Not Given Morphine Sulfate (Morphine Extended Release Tab) 15 mg PO Q12 [facility] Last Admin: 10/21/16 22:31 Dose: 15 mg Oxycodone/Acetaminophen (Percocet 5/325 Mg Tab) 1 tab PO Q6H PRN PRN Reason: Pain, severe (8-10) Stop: 10/22/16 18:56 Last Admin: 10/22/16 06:23 Dose: 1 tab Pantoprazole Sodium (Protonix Ec Tab) 40 mg PO DAILY [facility] Last Admin: 10/22/16 10:56 Dose: Not Given Paroxetine HCl (Paxil) 40 mg PO DAILY [facility] Last Admin: 10/22/16 10:55 Dose: Not Given Rosuvastatin Calcium (Crestor) 5 mg PO HS [facility] Last Admin: 10/21/16 22:31 Dose: 5 mg Fluticasone/Salmeterol (Advair Diskus 250/50) 1 puff INH RQ12 [facility] Last Admin: 10/22/16 07:55 Dose: 1 puff - Labs Labs: 10/22/16 07:33 10/22/16 07:33 - Constitutional Appears: No Acute Distress, Chronically Ill - Eye Exam Eye Exam: Normal appearance, PERRL - ENT Exam ENT Exam: Mucous Membranes Moist - Neck Exam Neck Exam: Normal Inspection - Respiratory Exam Respiratory Exam: Clear to Ausculation Bilateral - Cardiovascular Exam Cardiovascular Exam: REGULAR RHYTHM, +S1, +S2 - GI/Abdominal Exam GI & Abdominal Exam: Soft, Normal Bowel Sounds - Extremities Exam Extremities Exam: Full ROM, Normal Capillary Refill, Normal Inspection. absent : Joint Swelling, Pedal Edema Assessment and Plan - Assessment and Plan (Free Text) Assessment: chest pain r/o cad. Plan: for stress myoview today. check echo. ct present treatment.
[2016-10-22 16:57] VITALS: BP 114/66; PULSE 79; TEMP 97.6; O2SAT 97
--- NOTE | 2016-10-22 21:10 | CP.PCM.DIS ---
Provider - Provider Date of Admission: 10/21/16 13:26 Attending physician: Lupe Bowen DO Primary care physician: Dr. Garrett Consults: Dr. Karimi (GI) Time Spent in preparation of Discharge (in minutes): 45 Diagnosis - Discharge Diagnosis (1) Chest pain Status: Resolved Comment: see hospital summary for more details (2) Chronic pain Status: Chronic Comment: see hospital summary for more details (3) Psychiatric diagnosis Status: Chronic Comment: see hospital summary for more details (4) COPD (chronic obstructive pulmonary disease) Status: Chronic Priority: Low Comment: see hospital summary for more details (5) Atrial fibrillation Status: Chronic Comment: see hospital summary for more details (6) Diarrhea Status: Resolved Comment: see hospital summary for more details (7) Headache Status: Resolved Comment: see hospital summary for more details (8) Rectal bleeding Status: Resolved Comment: follow up with GI outpatient (9) Hepatitis C Status: Chronic Comment: follow up with GI outpatient Hospital Course - Lab Results Lab Results: Most Recent Lab Values WBC 5.6 K/uL (4.8-10.8) 10/22/16 07:33 RBC 3.99 Mil/uL (4.40-5.90) L 10/22/16 07:33 Hgb 12.1 g/dL (12.0-18.0) D 10/22/16 07:33 Hct 37.0 % (35.0-51.0) 10/22/16 07:33 MCV 92.6 fL (80.0-94.0) 10/22/16 07:33 MCH 30.3 pg (27.0-31.0) 10/22/16 07:33 MCHC 32.7 g/dL (33.0-37.0) L 10/22/16 07:33 RDW 13.4 % (11.5-14.5) 10/22/16 07:33 Plt Count 200 K/uL (130-400) 10/22/16 07:33 MPV 7.7 fL (7.2-11.7) 10/22/16 07:33 Neut % (Auto) 55.8 % (50.0-75.0) 10/22/16 07:33 Lymph % (Auto) 29.9 % (20.0-40.0) 10/22/16 07:33 Sully % (Auto) 9.6 % (0.0-10.0) 10/22/16 07:33 Eos % (Auto) 4.1 % (0.0-4.0) H 10/22/16 07:33 Baso % (Auto) 0.6 % (0.0-2.0) 10/22/16 07:33 Neut # 3.1 K/uL (1.8-7.0) 10/22/16 07:33 Lymph # 1.7 K/uL (1.0-4.3) 10/22/16 07:33 Sully # 0.5 K/uL (0.0-0.8) 10/22/16 07:33 Eos # 0.2 K/uL (0.0-0.7) 10/22/16 07:33 Baso # 0.0 K/uL (0.0-0.2) 10/22/16 07:33 D-Dimer, Quantitative < 200 ng/mlDDU (0-243) 10/20/16 06:23 Sodium 140 mmol/L (132-148) 10/22/16 07:33 Potassium 4.5 mmol/L (3.6-5.2) 10/22/16 07:33 Chloride 107 mmol/L (98-107) 10/22/16 07:33 Carbon Dioxide 27 mmol/L (22-30) 10/22/16 07:33 Anion Gap 10 (10-20) 10/22/16 07:33 BUN 16 mg/dL (9-20) 10/22/16 07:33 Creatinine 0.8 MG/DL (0.8-1.5) 10/22/16 07:33 Est GFR ( Amer) > 60 10/22/16 07:33 Est GFR (Non-Af Amer) > 60 10/22/16 07:33 POC Glucose (mg/dL) 98 mg/dL (65-110) 10/21/16 06:13 Random Glucose 93 mg/dL (75-110) 10/22/16 07:33 Hemoglobin A1c 5.6 % (4.2-6.5) 10/20/16 04:26 Calcium 8.8 mg/dl (8.6-10.4) 10/22/16 07:33 Phosphorus 2.7 mg/dL (2.5-4.5) 10/22/16 07:33 Magnesium 2.1 mg/dL (1.6-2.3) 10/22/16 07:33 Total Bilirubin 0.7 mg/dL (0.2-1.3) 10/22/16 07:33 AST 26 U/L (17-59) 10/22/16 07:33 ALT 37 U/L (21-72) 10/22/16 07:33 Alkaline Phosphatase 66 U/L (38-126) 10/22/16 07:33 Total Creatine Kinase 30 U/L (55-170) L 10/21/16 11:31 CK-MB (Mass) 0.73 ng/mL (0.0-3.38) 10/21/16 11:31 Troponin I < 0.0120 ng/mL (0.00-0.120) 10/19/16 12:26 Troponin I, Quant < 0.0120 ng/mL (0.00-0.120) 10/21/16 11:31 NT-Pro-B Natriuret Pep 109 pg/mL (0-900) 10/19/16 12:26 Total Protein 6.4 g/dL (6.3-8.3) 10/22/16 07:33 Albumin 3.4 g/dL (3.5-5.0) L 10/22/16 07:33 Globulin 3.0 gm/dL (2.2-3.9) 10/22/16 07:33 Albumin/Globulin Ratio 1.1 (1.0-2.1) 10/22/16 07:33 Triglycerides 66 mg/dL (0-149) D 10/20/16 04:26 Cholesterol 156 mg/dL (0-199) 10/20/16 04:26 LDL Cholesterol Direct 102 mg/dL (0-129) 10/20/16 04:26 HDL Cholesterol 44 mg/dL (30-70) 10/20/16 04:26 TSH 3rd Generation 1.54 mIU/L (0.46-4.68) 10/20/16 04:26 Stool Occult Blood Negative (NEGATIVE) 10/19/16 15:14 Digoxin < 0.4 ng/mL (0.8-2.0) L 10/20/16 04:26 Urine Opiates Screen Positive (NEGATIVE) 10/19/16 19:16 Urine Methadone Screen Negative (NEGATIVE) 10/19/16 19:16 Ur Barbiturates Screen Negative (NEGATIVE) 10/19/16 19:16 Ur Phencyclidine Scrn Negative (NEGATIVE) 10/19/16 19:16 Ur Amphetamines Screen Negative (NEGATIVE) 10/19/16 19:16 U Benzodiazepines Scrn Negative (NEGATIVE) 10/19/16 19:16 U Oth Cocaine Metabols Negative (NEGATIVE) 10/19/16 19:16 U Cannabinoids Screen Negative (NEGATIVE) 10/19/16 19:16 Anti-Mitochondrial Ab Negative (Negative) 10/21/16 06:53 Anti-Smooth Muscle Ab Negative (Negative) 10/21/16 06:53 - Hospital Course Hospital Course: CC: "Chest Pain at 4:40am. HPI: 61 year old male who presents to the emergency department with chest pain that began at 4:30am. Patient states the pain has occured 2-3 days but the pain went away at rest. Currently the pain is constant and feels like a tightness as if an elephant is sitting on his chest. The pain is located substernal chest. There is constant numbness and tingling radiating to the left arm and fingertips which is made worse when what feels as an electric shock comes and also radiates to the left thigh. The pain is a 9/10 and nothing makes the pain worse or better. Patient states he did take 81mg of Aspirin but denies taking of his other home medications. Per patient has had nausea and vomiting occured yesterday once and no blood was seen. Patient states has has unwanted 6lb weight loss in one week. Patient has had two loose bowel movements today and has noticed red blood in stool." Patient admitted to hospital to rule out [place] and GI bleed. In ED, EKG was normal sinus rhythm and first ОЛЕГ negative. Patient given Aspirin 325 mg PO x1. Patient then went into rapid a. fib and cardizem was given to rate control patient. Patient also continued on home medications for atrial fib and kept on telemetry to monitor heart rate. Three more ROMIs came back negative. CT abdomen /pelvis on 10/20 showed multiple small nonobstructing bilateral renal calculi essentially unchanged from 07/21/15. No acute abnormality. Dissection Study on showed no evidence of thoracic/ abdominal aortic dissecction. No evidence of aortic anuerysm. Stool occult blood was negative. GI consulted (Dr. Garcia) and hemorrhoids found on rectal examination. As per GI, supportive care for diarrheal illness, HCV to be treated outpatient on follow up, EGD/Colonoscopy as outpatient. Patient not on anticoagulation due to potential bleed and noncompliance. Home pain medications were given for chronic pain. Psychiatric medications were continued. Patient given duonebs and advair for COPD. Patient complained of severe headache behind eyes on 10/[address] showed mild chronic sphenoid and ethmoid sinusitis. No intracranial mass, hemorrhage or evidence of acute infarct. On 10/22 at 8:56 patient found on floor per report, patient states he felt dizzy after urinating and does not remember what happened. Vitals 142/70, RI 84, Glucose 94. Patient AAOx3. Neuro exam cranial nerves II-XII normal. Discussed with Dr. Idris Mora, Activity Manager. Patient to have nuclear stress test. Discussed with house nurse staff that patient to be closely monitored. Stress test was performed and showed no abnormalities. Patient was cleared for discharge as per Dr. Bowen. This summary of the hospital course. Please see chart for details. Discharge patient as per Dr. Bowen. As per cardiology (Dr. Idris Mora) patient is stable for discharge. Please resume all home medications as listed below: 40 mg Omeprazole once per day 81mg Aspirin once per day 30mg Cardizem four times per day 125 digoxin once per day 25 metoprolol tartrate once daily Advair Diskus 250-50mcg/dose aerosol 1 puff inhalation twice per day Albuterol sulfate HFA 108 MCG/ACT aerosol solution 2 puffs as needed inhalation every 4 hours 10mg simvastatin once per day Percocet 5-325mg 1 tablet as needed orally every 6 hours Xanax 0.5mg tablet orally once per day as needed 150mg Bupropion tablet extended release 24 hour 1 tablet in the morning orally once a day Paxil 40mg tablet in the morning orally once a day MS Contin 15mg tablet extended release 1 tablet orally every 12 hours Please follow up with your primary doctor in the [facility] within one week of discharge. Instructions explained to patient. Patient understands and agrees. Reviewed [place] [facility], patient has sufficient supply of narcotic medications: MS Contin renewed 10/05/16 for 30 days Xanax renewed 10/05/16 for 30 days Percocet renewed 09/28/16 for 30 days If patient's symptoms return patient is to return to ED. Discharge Exam - Head Exam Head Exam: ATRAUMATIC, NORMAL INSPECTION - Eye Exam Eye Exam: EOMI, Normal appearance, PERRL - ENT Exam ENT Exam: Mucous Membranes Moist - Neck Exam Neck exam: Full Rom, Normal Inspection - Respiratory Exam Respiratory Exam: NORMAL BREATHING PATTERN, UNREMARKABLE - Cardiovascular Exam Cardiovascular Exam: REGULAR RHYTHM, RRR. absent: Diastolic murmur, Gallop, Rubs - GI/Abdominal Exam GI & Abdominal Exam: Normal Bowel Sounds. absent: Distended, Firm, Guarding - Extremities Exam Extremities exam: full ROM, normal inspection - Back Exam Back exam: NORMAL INSPECTION - Neurological Exam Neurological exam: Alert, Normal Gait, Oriented x3 - Psychiatric Exam Psychiatric exam: Normal Affect, Normal Mood - Skin Skin Exam: Normal Color, Warm Discharge Plan - Follow Up Plan Condition: FAIR Disposition: HOME/ ROUTINE Instructions: Chest Pain (DC), Heart Healthy Diet (DC) Additional Instructions: Discharge patient as per Dr. Bowen. As per cardiology patient is stable for discharge. Please resume all home medications. Please follow up with your primary doctor in the [facility] within one week of discharge. Please return to the ED if symptoms worsen or return. Instructions explained to patient. Patient understands and agrees. Reviewed [place] [facility], patient has sufficient supply of narcotic medications. Referrals: [facility] [Provider Group] Rafael Garcia MD [Staff Provider] -
--- NOTE | 2016-10-23 11:02 | CARD ---
APPROVED REPORT Protocol: PHARMACOLOGICAL STRESS Test Type: LEXISCAN Test Indications: CHEST PAIN,HX TIA Medications: LIST SCAN Medical History: CHEST PAIN,HX TIA Target HR: 160 bpm Resting Heart Rate: 70 bpm Resting Blood Pressure: /mmHg submaximum (85%): 136 bpm TEST SUMMARY [id number]. INFUSIONDOSE 100:300.00.01.076/.0. [id number]. PROCEDURE Pharmacologic stress testing was performed using 0.4mg per 5ml of regadenoson given intravenously over 7-10 seconds. POST EXERCISE Target HR: No Max HR: 76 bpm 58% of Maximum Predicted HR: 160 bpm Exercise duration: 00:30 min:sec, 0 Stage Exercise capacity: 1.0METs Max Blood Pressure: 110/64mmHg Chest Pain: Yes, Angina index: 0 Arrhythmia: Yes, ST Change: Yes, Deviation: 0 mm INTERPRETATION Stress EKG Conclusion: PT C/O TIGHTNESS IN CHEST AT 3 MINS. NO ISCHEMIC STT CHANGES NOTED. EXAM: Myocardial Perfusion REST/STRESS Imaging Protocol The imaging protocol used to acquire images was Rest Tc-99m/stress Tc-99m 1 day Rest Spect myocardial perfusion imaging was performed in supine position 45 minutes following the injection of 12.8 mCi of Tc-99 Myoview. Gated Stress Spect was performed 45 minutes after intravenous 30.6 mCi Tc-99 Myoview injection. The images were gated to evaluate regional wall motion and calculate ventricular ejection fraction.Images were reconstructed using backfilter projection method in short horizontal and verticle long axis. Spect slices were generated. RESTING DATA [id number]/min ESV39.00mlMyocardial Uatm134.00g Av. Heart Rate67.00bpm EF68.00% STRESS DATA FLN952.32asYN0.50L/min ESV29.00mlMyocardial Wyby295.00g EF72.00% Regional WT score at stress:1.00 Regional WM score at stress:0.00 Summed WT score at stress:6.00 Av. Heart Rate72.00bpmSummed WM score at stress:2.00 LV Perf. Quant 17 Seg. SSS0.00 17 Seg. SRS0.00 17 Seg. SDS0.00 Stress Defect Extent (% LAD)0.00Rest Defect Extent (% LAD)0.00Rev. Defect Extent (% LAD)0.00 Stress Defect Extent (% LCX)0.00Rest Defect Extent (% LCX)0.00Rev. Defect Extent (% LCX)0.00 Stress Defect Extent (% RCA)0.00Rest Defect Extent (% RCA)0.00Rev. Defect Extent (% RCA)0.00 Stress Defect Extent (% SINGH)0.00Rest Defect Extent (% SINGH)0.00Rev. Defect Extent (% SINGH)0.00 Left Ventricle LV Size/Shape: The left ventricle is normal size. LV Thickness: There is normal left ventricular wall thickness. LV Function:Left ventricle systolic function is normal. The Ejection Fraction is 68% Regional Wall Motion:There is normal left ventricular wall motion. Metabolism/Perfusion Defects: none. There are no defects. There are no perfusion/metabolism defects. Conclusion 1. negative myocardial perfusion scan. 2. LVEF IS 68%. 3. NORMAL LV FUNCTION.
--- NOTE | 2016-10-23 15:17 | CARD ---
APPROVED REPORT EKG Measurement Heart [id number] <Conclusion> Normal sinus rhythm Normal ECG
--- NOTE | 2016-10-23 15:23 | CARD ---
APPROVED REPORT EKG Measurement Heart [id number] [place] [id number] <Conclusion> Normal sinus rhythm Normal ECG
[2016-10-23 18:06] LABS: LKM-1 Ab (IgG) <=20.0 U (<=20.0)
== END 2016-10-22 16:45 | disposition home or self-care (01) | DRG 143 ==
LOC: C.ER 11:23 → C.9E 13:35 → C.6T 14:51 → OBSVTOIN 10-21 13:26
PROVIDERS: ADMIT Hospitalist; ATTEND Hospitalist
DX: R07.9 Chest pain, unspecified (principal); I10 Essential (primary) hypertension; B18.2 Chronic viral hepatitis C; J44.9 Chronic obstructive pulmonary disease, unspecified; E78.5 Hyperlipidemia, unspecified; F31.9 Bipolar disorder, unspecified; F43.10 Post-traumatic stress disorder, unspecified; G89.29 Other chronic pain; I48.2 Chronic atrial fibrillation; J32.2 Chronic ethmoidal sinusitis; J32.3 Chronic sphenoidal sinusitis; M48.00 Spinal stenosis, site unspecified; Z86.73 Personal history of transient ischemic attack (TIA), and cerebral infarction without residual deficits; Z87.891 Personal history of nicotine dependence; Z91.19 Patient's noncompliance with other medical treatment and regimen

== ENCOUNTER 2016-11-15 13:20 | Inpatient (IN) | payer MEDICAID ==
--- NOTE | 2016-11-15 13:57 | C.PDOC ---
History Of Present Illness 61 y/o male hx of Afib not compliant with xaralto, multiple TIA presents to the ED with complaints of left sided chest pain since 0700 this morning. Nnotes pain is midsternal radiating down to left hand with paresthesias. Pt also reports associated nausea. Pt states he feels like his heart "is jumping out." Denies vomiting, SOB, abdominal pain, numbness, or any other complaints. History of similar symptoms in the past. Time Seen by Provider: 11/15/16 13:34 Chief Complaint (Nursing): Chest Pain History Per: Patient History/Exam Limitations: no limitations Onset/Duration Of Symptoms: Hrs Current Symptoms Are (Timing): Still Present Severity: Moderate Quality: "Pain" Associated Symptoms: Nausea Modifying Factors: None Alleviating Factors: None Recent travel outside of the [place]: No Past Medical History Reviewed: Historical Data, Nursing Documentation, Vital Signs Vital Signs: Last Vital Signs Temp 98.2 F 11/15/16 13:31 Pulse 96 H 11/15/16 16:30 Resp 16 11/15/16 16:30 BP 125/90 11/15/16 16:30 Pulse Ox 98 11/15/16 16:30 - Medical History PMH: Anxiety, Arthritis, Asthma, Atrial Fibrillation, Back Problems, Bipolar Disorder, Cardia Arrhythmia, COPD, Depression, Hepatitis, HTN, Post Traumatic Stress Disorder (1985 of 2 y/o daughter), TIA (March 2016/JUN 2016) Surgical History: Appendectomy, Tonsillectomy - [facility] Procedures DX ULTRASOUND-HEART (05/05/14) INSERTION OF INFUSION DEV INTO SUP VENA CAVA, PERC APPROACH (07/09/15) PERCUTANEOUS ABDOMINAL DRAINAGE (05/05/14) ULTRASONOGRAPHY OF RIGHT AND LEFT HEART, TRANSESOPHAGEAL (07/09/15) VENOUS CATHETERIZATION NEC (05/05/14) Family History: States: Unknown Family Hx - Social History Hx Tobacco Use: Yes (1ppd from ages [age] ) Hx Alcohol Use: No Hx Substance Use: No - Immunization History Hx Tetanus Toxoid Vaccination: No Hx Influenza Vaccination: Yes Hx Pneumococcal Vaccination: No Review Of Systems Except As Marked, All Systems Reviewed And Found Negative. Cardiovascular: Positive for: Chest Pain (radiating down left hand) Respiratory: Negative for: Shortness of Breath Gastrointestinal: Positive for: Nausea. Negative for: Vomiting, Abdominal Pain Neurological: Negative for: Numbness Physical Exam - Physical Exam Appears: Non-toxic, No Acute Distress Skin: Warm, Dry, No Rash Head: Atraumatic, Normacephalic Eye(s): bilateral: Normal Inspection, EOMI Nose: Normal Oral Mucosa: Moist Neck: Normal ROM, Supple Chest: Symmetrical Cardiovascular: Rhythm Irregular (tachycardic) Respiratory: Normal Breath Sounds, No Rales, No Rhonchi, No Wheezing Gastrointestinal/Abdominal: Normal Exam, Soft, No Tenderness Extremity: Normal ROM, No Pedal Edema Neurological/Psych: Oriented x3, Normal Speech, Normal Cognition, Normal Motor, Normal Sensation ED Course And Treatment - Laboratory Results Result Diagrams: 11/15/16 14:17 11/15/16 14:17 ECG: Interpreted By Me (Dr Mays), Viewed By Me ECG Rhythm: Atrial Fibrillation Rate From EC (BPM) O2 Sat by Pulse Oximetry: 98 (room air) Pulse Ox Interpretation: Normal Progress Note: Plan: EKG, CXR, labs, aspirin, zofran, percocet, cardizem, IV fluids. Case discussed with dr Mays, agreed upon plan and treatment. Case discussed with Dr saleem, agreed upon plan and admission. Disposition - Disposition Disposition: HOSPITALIZED Disposition Time: 18:41 Condition: STABLE - Clinical Impression Clinical Impression: Chest pain, Atrial fibrillation - PA / INFORMATICS PHYSICIAN / Resident Statement MD/DO has reviewed & agrees with the documentation as recorded. - Scribe Statement The provider has reviewed the documentation as recorded by the Scribe Rahul Mendoza All medical record entries made by the Scribe were at my direction and personally dictated by me. I have reviewed the chart and agree that the record accurately reflects my personal performance of the history, physical exam, medical decision making, and the department course for this patient. I have also personally directed, reviewed, and agree with the discharge instructions and disposition.
[2016-11-15] MEDS ORDERED: Sodium Chloride 0.9% 1,000 ML IV ONE (14:06)
[2016-11-15] MEDS ORDERED: Aspirin 325 mg EC Tablets PO STA (14:06)
[2016-11-15 14:24] LABS: BASO % 0.6 % (0.0-2.0); EOS % 0.2 % (0.0-4.0); HEMATOCRIT 39.3 % (35.0-51.0); LYMPH # 1.6 K/uL (1.0-4.3); LYMPH % 26.6 % (20.0-40.0); MEAN CELL VOLUME 91.3 fL (80.0-94.0); MEAN CORPUSCULAR HEMOGLOBIN 30.1 pg (27.0-31.0); MONO # 0.5 K/uL (0.0-0.8); MONO % 8.2 % (0.0-10.0)
[2016-11-15] MEDS ORDERED: Aspirin 325 mg EC Tablets PO ONE (14:26)
[2016-11-15] MEDS ORDERED: Sodium Chloride 0.9% 1,000 ML ONE (14:26)
[2016-11-15 14:30] LABS: CHLORIDE 103 mmol/L (98-107); SODIUM 142 mmol/L (132-148)
[2016-11-15 14:31] LABS: POTASSIUM 3.9 mmol/L (3.6-5.2)
[2016-11-15 14:33] LABS: ALB/GLOB RATIO 1.2 (1.0-2.1); BILIRUBIN,TOTAL 0.8 mg/dL (0.2-1.3); CARBON DIOXIDE 26 mmol/L (22-30); GFR AFRICAN-AMERICAN > 60; TOTAL PROTEIN 7.6 g/dL (6.3-8.3)
[2016-11-15 14:34] LABS: ALKALINE PHOSPHATASE 78 U/L (38-126); ALT/SGPT 50 U/L (21-72); AST/SGOT 49 U/L (17-59); BLOOD UREA NITROGEN 17 mg/dL (9-20); CALCIUM 9.2 mg/dl (8.6-10.4); GLUCOSE,RANDOM 129 mg/dL (75-110)
[2016-11-15] MEDS ORDERED: Oxycodone/Acetaminophen 5/325 mg Tab PO STA (14:55)
--- NOTE | 2016-11-15 15:03 | RAD ---
HISTORY: chest pain COMPARISON: Chest x-ray performed 08/22/16 TECHNIQUE: Chest, one view. FINDINGS: Examination limited by habitus. LUNGS: Low lung volumes, mild crowded bronchovascular markings and mild bibasilar atelectasis Please note that chest x-ray has limited sensitivity for the detection of pulmonary masses. PLEURA: No significant pleural effusion identified. No definite pneumothorax . CARDIOVASCULAR: Heart size appears within normal limits. OSSEOUS STRUCTURES: Osseous demineralization. Degenerative changes. VISUALIZED UPPER ABDOMEN: Unremarkable. OTHER FINDINGS: None. IMPRESSION: Low lung volumes, mild crowded bronchovascular markings and mild bibasilar atelectasis
[2016-11-15] MEDS ORDERED: Oxycodone/Acetaminophen 5/325 mg Tab ONE (15:08)
--- NOTE | 2016-11-15 18:05 | CT ---
PROCEDURE: CT HEAD WITHOUT CONTRAST. HISTORY: pt's c/o of slurred speech; hx of TIA COMPARISON: Noncontrast head CT performed 10/21/16 TECHNIQUE: Axial computed tomography images were obtained through the head/brain without intravenous contrast. Radiation dose: Total exam DLP = 940.56 mGy-cm. This CT exam was performed using one or more of the following dose reduction techniques: Automated exposure control, adjustment of the mA and/or kV according to patient size, and/or use of iterative reconstruction technique. FINDINGS: Streak artifact obscures evaluation of the skullbase. HEMORRHAGE: No intracranial hemorrhage. BRAIN: No mass effect or edema. Intracranial atherosclerosis. Scattered periventricular and subcortical white matter hypodensities, which are nonspecific, but often seen with chronic microvascular ischemic disease. Please note that MRI with diffusion imaging is more sensitive in the detection of acute ischemic event. VENTRICLES: No hydrocephalus. CALVARIUM: Unremarkable. PARANASAL SINUSES: Unremarkable as visualized. No significant inflammatory changes. MASTOID AIR CELLS: Unremarkable as visualized. No inflammatory changes. OTHER FINDINGS: None. IMPRESSION: Streak artifact obscures evaluation particularly of the skullbase. Scattered nonspecific white matter changes. Please note that MRI with diffusion imaging is more sensitive in the detection of acute ischemic event.
--- NOTE | 2016-11-15 19:17 | CP.PCM.HP ---
<Justin Kramer - Last Filed: 11/15/16 19:25> History of Present Illness - History of Present Illness History of Present Illness: History provided by: Patient and [facility] CC: "chest pain and racing heartbeat" Mr Elias is a 61 with a PMHx significant for Afib, CAD, [place] (July 2016) and multiple TIAs (Mar 2016 & Jun 2016) who presents with chest pain and palpitations that began today at 1pm. Patient states that he was woken up out of sleep this morning around 7:00am with left-sided BYRNE located behind the eye that radiates to the temporal region and down the neck. It is described to be a "throbbing/pulsating pressure", 9/10 in severity. Patient then got out of bed and attempted to go about his normal daily routine. Shortly after he became nauseous and vomited x 3. He was able to eat a small breakfast but felt that he was unable to tolerate any of his medications today so he did not take them. Later in the afternoon, he and his fiance went out walking to grab lunch around noon. While on the walk he began having chest pains and palpitations that radiated down the left arm. This pain was described to be a pressure like pulsations in which he felt each heartbeat. Associated with numbness and tingling in the 3-5th digits of the left hand; thus prompting him to come to the ED for further evaluation. He describes these episodes to be quite similar in nature to his prior episodes of chest pain that brought him to the hospital. Denies any precipitating or strenous activities prior to onset. While in the ED , patient was found to be in Afib @ 120bpm. He was subsequently given Cardizem 30mg which brought his HR down to current 90s. Upon further questioning, it was revealed that patient had also experienced some slurred speech along with minor facial numbness and droop with brief left arm weakness this morning. He reports full resolution of these symptoms. As per medina, since his last TIA, patient has been rather unsteady on his feet and frequently loses balance. Denies any recent falls, syncopal episodes or head trauma. It should also be of note, that patient has discontinued taking his Xarelto for several weeks now, as he was under the impression that he needed to prepare for an uncoming orthopedic shoulder procedure that has not been officially scheduled. PMD: Dr. Garrett Psych: Dr. Grier Medical History: Afib, CAD, [place] (July 2016), TIA x 2 (Mar 2016, Jun 2016), COPD , GERD, Panic disorder, Anxiety disorder, PTSD, Recent R rotator cuff tear that requires surgical repair, long standing cervical spinal stenosis s/p fall from 18ft tree branch while at work in 1999. Surgical History: L knee patella fx (1981), [employer] (childhood), 2 hernias ( umbilical and inguinal in ) Prior hospitalizations: 14 week admission to the ICU for osteomyelitis/sepsis ( 3 years ago), was treated and d/c then returned back for a subsequent admission of 10 weeks for recurrent osteomyelitis. That time he was d/c to subacute rehab facility. Home meds: Wellbutryn 150mg qd; Xanax 0.5mg; Paxil 40mg qd, ASA 81mg; Cardizem; Metoprolol; Digoxin; Simvastatin; Omeprazole; MS-contin 15mg BID, Percocet 5- 325 mg prn; Supplements: Centrum Silver for men daily Allergies: NKDA FHx: M of CHF at 76. F still alive at 83. Brother #1 of CVA at 42, Brother #2 of WA at 48, Sister of WA at 46, Son of hirshsprung's disease during infancy Social Hx: Food: [place], low sodium diet. Consumes fruits and veggies regularly. Occasional fast food and ice cream 2x/week Exercise: Walks a few miles daily Drugs: Denies Tobacco: Quit 1 month ago, 30 py history Alcohol: Denies Caff: 2x 8-10oz cups daily Occupation: Currently unemployed Present on Admission - Present on Admission Any Indicators Present on Admission: No Review of Systems - Constitutional Constitutional: Fatigue, Headache. absent: Fever Additional comments: (+) Headache (left-sided, throbbing, behind eye) - EENT Eyes: absent: Change in Vision Ears: absent: Ear Pain - Cardiovascular Cardiovascular: Chest Pain, Palpitations - Respiratory Respiratory: Dyspnea - Gastrointestinal Gastrointestinal: Diarrhea, Nausea, Vomiting. absent: Abdominal Pain - Genitourinary Genitourinary: absent: Dysuria - Musculoskeletal Additional comments: (+) R shoulder pain and decreased ROM, R Hip pain, left neck pain - Integumentary Integumentary: absent: Rash - Neurological Neurological: Dizziness, Numbness, Tingling, Weakness Additional comments: (+) Dizziness, lightheadedness, increased sleep, L arm numbness and tingling, dysequilibrium; (-) LOC, Past Patient History - Infectious Disease Hx of Infectious Diseases: None - Tetanus Immunizations Tetanus Immunization: Unknown - Past Medical History & Family History Past Medical History?: Yes - Past Social History Smoking Status: Never Smoked - CARDIAC Hx Atrial Fibrillation: Yes Hx Cardia Arrhythmia: Yes Hx Hypertension: Yes - PULMONARY Hx Asthma: Yes Hx Chronic Obstructive Pulmonary Disease (COPD): Yes - NEUROLOGICAL Hx Transient Ischemic Attacks (TIA): Yes (March 2016/JUN 2016) - HEENT Hx HEENT Problems: Yes Hx Cataracts: Yes ("early stages" as per patient) - RENAL Hx Chronic Kidney Disease: No - ENDOCRINE/METABOLIC Hx Endocrine Disorders: No - HEMATOLOGICAL/ONCOLOGICAL Hx Blood Disorders: No Hx Human Immunodeficiency Virus (HIV): No - INTEGUMENTARY Hx Dermatological Problems: Yes Hx Psoriasis: Yes - MUSCULOSKELETAL/RHEUMATOLOGICAL Hx Arthritis: Yes - GASTROINTESTINAL Hx Gastrointestinal Disorders: No - GENITOURINARY/GYNECOLOGICAL Hx Genitourinary Disorders: No Hx Sexually Transmitted Disorders: No - PSYCHIATRIC Hx Anxiety: Yes Hx Bipolar Disorder: Yes Hx Depression: Yes Hx Post Traumatic Stress Disorder: Yes (1985 of 2 y/o daughter) Hx Substance Use: No - SURGICAL HISTORY Hx Appendectomy: Yes Hx Tonsillectomy: Yes - ANESTHESIA Hx Anesthesia: Yes Hx Anesthesia Reactions: No Hx Malignant Hyperthermia: No Has any member of the family had a problem w/ anesthesia?: No Meds Allergies/Adverse Reactions: Allergies Allergy/AdvReac Type Severity Reaction Status Date / Time No Known Allergies Allergy Verified 11/15/16 13:51 Physical Exam - Constitutional Appears: Well, No Acute Distress - Head Exam Head Exam: NORMAL INSPECTION - Eye Exam Eye Exam: EOMI, Normal appearance - ENT Exam ENT Exam: Mucous Membranes Moist Additional comments: (+) TTP to the left temporal region and along the mandibular rami. - Neck Exam Additional comments: (+) TTP to the left posterior neck. - Respiratory Exam Respiratory Exam: Wheezes Additional comments: (+) Expiratory wheeze in middle to lower lung echeverria bilaterally - Cardiovascular Exam Cardiovascular Exam: Tachycardia, Irregular Rhythm. absent: JVD, Systolic Murmur - GI/Abdominal Exam GI & Abdominal Exam: Normal Bowel Sounds. absent: Bruit - Rectal Exam Rectal Exam: Deferred - Extremities Exam Additional comments: 5/5 strength in left shoulder, elbow, wrist, fiberglass bonding machine tender, hip, knee and foot testing. ( +) 4/5 strength in right hand fiberglass bonding machine tender and bicep flexion; 5/5 strength in R hip, knee and foot testing. Full active ROM in left shoulder. (+) Significantly reduced active ROM of the R shoulder 2/2 pain. - Neurological Exam Neurological exam: CN II-XII Intact, Oriented x3 Additional comments: AAOx4. CN II-XII grossly intact. No facial droop appreciated. Normal smile. Recalls name, date and president adequately. Sensation intact in all extremities. (+) Resting tremor of the hands with arms fully extend out. (+) Pronator drift on the R. (+) Questionably positive [id number] bilaterally as this may be 2/2 arthritic pain. (+) Questionably positive finger to nose testing on the right, it was markedly slower then the left, but unsure if 2/2 to arthritic pain of the R shoulder. (+) Slow to perform rapid-alternating movement testing - Psychiatric Exam Psychiatric exam: Normal Affect, Normal Mood - Skin Skin Exam: Dry, Intact, Normal Color, Warm Results - Vital Signs Recent Vital Signs: Last Vital Signs Temp 98.2 F 11/15/16 13:31 Pulse 96 H 11/15/16 16:30 Resp 16 11/15/16 16:30 BP 125/90 11/15/16 16:30 Pulse Ox 98 11/15/16 18:41 - Labs Result Diagrams: 11/15/16 14:17 11/15/16 14:17 Assessment & Plan - Assessment and Plan (Free Text) Assessment: 1.) Chest Pain * Observe to telemetry * In the ED, Aspirin 325mg POx1 * Will start Aspirin 81mg PO 1x daily * c/w Metoprolol Tartrate 25mg daily HOLD SBP<100 and HR<60 * c/w Cardizem 30mg 4x aday HOLD SBP<100 and HR<60 * c/w digoxin .125mg po daily * Patient's initial troponin is negative. ОЛЕГ and EKG at 8pm, ОЛЕГ and EKG at 2AM * ECHO (06/06/16): Left atrial enlarged, right atrium dilated, LV:60% * HgA1C 5.6 on last admission in 09/2016 * Lipid Panel wnl 5.6 on last admission in 09/2016 * TSH wnl 5.6 on last admission in 09/2016 2) Slurred Speech hx of TIA CT head -> no intracranial hemorrhage. scattered nonspecific white matter changes. carotid dopplers ordered neurology consulted, Dr Cabrales. Follow up recommendations. 3.) Chronic Pain * History of spinal stenosis, extensive right rotator cuff tear * Start Percocet 1 tab 5/325 q6h PRN pain 4.) History of PTSD, Anxiety, Bipolar, Depression * c/w Paxil 40mg PO daily * c/w Wellbutrin 150mg daily * c/w xanax 0.5mg PO daily as needed 5.) Hyperlipidemia * c/w Crestor 5mg POqHS * Lipid Panel in AM 6.) History of COPD * Patient is not in active exacerbation * Duonebs [id number] PRN for shortness of breath * Advair 250/50 1 puff q12 hours 7.) History of Atrial Fibrillation * c/w Metoprolol Tartrate 25mg daily Hold SBP<100 and HR<60 * c/w Cardizem 30mg QID Hold SBP<100 and HR<60 * restarted xarelto 20mg po daily, patient has been off Xarelto due possible surgery for rotator cuff * HASBLED:2 * CHADS:1 (HTN) * c/w Aspirin 81mg PO daily 8.) History of Hepatitis C * not on current therapy at this time 9.) Prophylactic Treatment * SCDS bilateral * protonix 40mg po daily * heparin 5000u sc q8 <Adolfo Arana M - Last Filed: 11/16/16 18:12> Results - Vital Signs Recent Vital Signs: Last Vital Signs Temp 97.3 F L 11/16/16 16:00 Pulse 88 11/16/16 16:00 Resp 20 11/16/16 16:00 BP 135/72 11/16/16 17:32 Pulse Ox 96 11/16/16 16:00 - Labs Result Diagrams: 11/15/16 14:17 11/15/16 14:17 Labs: Laboratory Results - last 24 hr 11/15/16 11/16/16 20:48 02:27 Total Creatine Kinase 49 L 53 L CK-MB (Mass) 0.80 0.65 Troponin I, Quant < 0.0120 < 0.0120 Attending/Attestation - Attestation I have personally seen and examined this patient.: Yes I have fully participated in the care of the patient.: Yes I have reviewed all pertinent clinical information: Yes Notes (Text): 11/16/16 18:12 Patient was seen and examined at bedside with the resident Chest pain and palpitations resolved at this time I discussed the plan of care in detail with the admitting resident and I agree with the history and physical and assessment/plan documented here.
[2016-11-15] MEDS: Albuterol-Ipratrop 3 mg / 0.5 (3 ml) UD INH SCH (20:45)
[2016-11-15] MEDS: Oxycodone/Acetaminophen 5/325 mg Tab PO PRN (21:15)
[2016-11-16] MEDS: Albuterol-Ipratrop 3 mg / 0.5 (3 ml) UD INH SCH ×4 (01:20→19:09)
[2016-11-16] MEDS: Oxycodone/Acetaminophen 5/325 mg Tab PO PRN ×3 (02:13→22:09)
[2016-11-16] MEDS: Morphine 15 mg SR Tab PO SCH ×2 (09:32→17:32)
[2016-11-16] MEDS: buPROPion 150 mg/24 Hours XL Tab PO SCH (09:32)
[2016-11-16] MEDS: Pantoprazole 40 mg EC Tab PO SCH (09:32)
[2016-11-16] MEDS: Fluticasone-Salmeterol 250-50mcg Diskus IH SCH (09:55)
--- NOTE | 2016-11-16 13:05 | CP.PCM.CON ---
History of Present Illness - History of Present Illness History of Present Illness: Mr. Elias is a 61-year-old man with a relevant past medical history of atrial fibrillation and right shoulder injury, who states that he stopped his Xarelto 3 weeks ago in preparation for a possible right shoulder surgery. Yesterday, he woke up with a severe headache localized posterior to his left eye , throbbing, constant, 10/10 in severity, unrelenting, associated with nausea and vomiting. Associated with these symptoms, he was also noted to have dysarthria and left facial droop. This resolved. He subsequently had chest pain and palpitations. He presented to the ED and was in rapid atrial fibrillation rhythm. This was treated and he improved somewhat. He currently has a headache that prevented him from sleeping last night. He denies any weakness, sensory changes, visual changes, SOB, current chest pain, nausea, vomiting or difficulty with ambulation. Review of Systems - Review of Systems All systems: reviewed and no additional remarkable complaints except Past Patient History - Infectious Disease Hx of Infectious Diseases: None - Tetanus Immunizations Tetanus Immunization: Unknown - Past Medical History & Family History Past Medical History?: Yes - Past Social History Smoking Status: Never Smoked - CARDIAC Hx Hypertension: Yes - PULMONARY Hx Chronic Obstructive Pulmonary Disease (COPD): Yes - NEUROLOGICAL Hx Transient Ischemic Attacks (TIA): Yes (March 2016/JUN 2016) - HEENT Hx HEENT Problems: Yes Hx Cataracts: Yes ("early stages" as per patient) - RENAL Hx Chronic Kidney Disease: No - ENDOCRINE/METABOLIC Hx Endocrine Disorders: No - HEMATOLOGICAL/ONCOLOGICAL Hx Blood Disorders: No Hx Human Immunodeficiency Virus (HIV): No - INTEGUMENTARY Hx Dermatological Problems: Yes Hx Psoriasis: Yes - MUSCULOSKELETAL/RHEUMATOLOGICAL Hx Arthritis: Yes - GASTROINTESTINAL Hx Gastrointestinal Disorders: No - GENITOURINARY/GYNECOLOGICAL Hx Genitourinary Disorders: No Hx Sexually Transmitted Disorders: No - PSYCHIATRIC Hx Anxiety: Yes Hx Bipolar Disorder: Yes Hx Depression: Yes Hx Post Traumatic Stress Disorder: Yes (1985 of 2 y/o daughter) Hx Substance Use: No - SURGICAL HISTORY Hx Appendectomy: Yes Hx Tonsillectomy: Yes - ANESTHESIA Hx Anesthesia: Yes Hx Anesthesia Reactions: No Hx Malignant Hyperthermia: No Has any member of the family had a problem w/ anesthesia?: No Meds Allergies/Adverse Reactions: Allergies Allergy/AdvReac Type Severity Reaction Status Date / Time No Known Allergies Allergy Verified 11/15/16 13:51 - Medications Medications: Current Medications Albuterol/Ipratropium (Duoneb 3 Mg/0.5 Mg (3 Ml) Ud) 3 ml INH RQ6 [facility] Last Admin: 11/16/16 07:38 Dose: 3 ml Alprazolam (Xanax) 0.5 mg PO DAILY [facility] Last Admin: 11/16/16 09:32 Dose: 0.5 mg Aspirin (Aspirin Chewable) 81 mg PO DAILY [facility] Last Admin: 11/16/16 09:33 Dose: 81 mg Bupropion HCl (Wellbutrin Xl) 150 mg PO DAILY [facility] Last Admin: 11/16/16 09:32 Dose: 150 mg Digoxin (Lanoxin) 0.125 mg PO DAILY@1400 [facility] Diltiazem HCl (Cardizem) 30 mg PO QID [facility] Last Admin: 11/16/16 09:32 Dose: 30 mg Heparin Sodium (Porcine) (Heparin) 5,000 units SC Q8 [facility] Last Admin: 11/16/16 05:30 Dose: 5,000 units Metoprolol Tartrate (Lopressor) 25 mg PO BID [facility] Last Admin: 11/16/16 09:32 Dose: 25 mg Morphine Sulfate (Morphine Extended Release Tab) 15 mg PO BID [facility] Last Admin: 11/16/16 09:32 Dose: 15 mg Oxycodone/Acetaminophen (Percocet 5/325 Mg Tab) 1 tab PO QID PRN PRN Reason: Pain, moderate (4-7) Stop: 11/18/16 18:58 Last Admin: 11/16/16 02:13 Dose: 1 tab Pantoprazole Sodium (Protonix Ec Tab) 40 mg PO DAILY [facility] Last Admin: 11/16/16 09:32 Dose: 40 mg Paroxetine HCl (Paxil) 40 mg PO DAILY [facility] Last Admin: 11/16/16 09:32 Dose: 40 mg Pneumococcal Polyvalent Vaccine (Pneumovax 23 Vaccine) 0.5 ml IM .ONCE ONE Stop: 11/18/16 10:01 Rivaroxaban (Xarelto) 20 mg PO DAILY [facility] Last Admin: 11/16/16 09:33 Dose: 20 mg Rosuvastatin Calcium (Crestor) 5 mg PO HS [facility] Last Admin: 11/15/16 21:15 Dose: 5 mg Fluticasone/Salmeterol (Advair Diskus 250/50) 1 puff IH RQD [facility] Last Admin: 11/16/16 09:55 Dose: Not Given Physical Exam - Constitutional Appears: Well - Head Exam Head Exam: ATRAUMATIC, NORMAL INSPECTION, NORMOCEPHALIC - Eye Exam Eye Exam: EOMI, Normal appearance, PERRL - ENT Exam ENT Exam: Mucous Membranes Moist, Normal Exam - Neck Exam Neck exam: Positive for: Normal Inspection - Respiratory Exam Respiratory Exam: Clear to Auscultation Bilateral, NORMAL BREATHING PATTERN - Cardiovascular Exam Cardiovascular Exam: Irregular Rhythm, +S1, +S2 - GI/Abdominal Exam GI & Abdominal Exam: Normal Bowel Sounds, Soft. absent: Tenderness - Rectal Exam Rectal Exam: Deferred - Extremities Exam Extremities exam: Positive for: normal inspection - Back Exam Back exam: NORMAL INSPECTION - Neurological Exam Neurological exam: Abnormal Gait, Alert, CN II-XII Intact, Oriented x3, Reflexes Normal Additional comments: FTN is deficient on the right as compared with the left. Fine motor movements are deficient on the right as compared with the left. Reflexes were symmetrical. Romberg was positive. Plantar response was downgoing bilaterally. - Psychiatric Exam Psychiatric exam: Normal Affect, Normal Mood - Skin Skin Exam: Dry, Intact, Normal Color, Warm Results - Vital Signs Recent Vital Signs: Last Vital Signs Temp 97.9 F 11/16/16 08:17 Pulse 97 H 11/16/16 08:17 Resp 20 11/16/16 08:17 BP 129/82 11/16/16 09:32 Pulse Ox 98 11/16/16 08:17 - Labs Result Diagrams: 11/15/16 14:17 11/15/16 14:17 Labs: Laboratory Results - last 24 hr 11/15/16 11/16/16 20:48 02:27 Total Creatine Kinase 49 L 53 L CK-MB (Mass) 0.80 0.65 Troponin I, Quant < 0.0120 < 0.0120 - Imaging and Cardiology CT scan - head Status: Image reviewed by me, Report reviewed by me (No acute findings. ) Assessment & Plan (1) TIA (transient ischemic attack) Assessment and Plan: The patient continues to have headache and his neurological exam is not entirely normal. I would like to obtain an MRI of the brain without contrast as well as an MRA of the head/neck. Continue Xarelto. Check lipid panel, HbA1c , thyroid panel, B12, CRP/ESR. Status: Acute Priority: Medium (2) Headache Assessment and Plan: Will treat the headache with depakote 500 mg IV push, magnesium sulfate 2 grams IV and decadron 10 mg IV ONCE. Continue IVF and conservative management. Status: Acute Priority: High
--- NOTE | 2016-11-16 13:07 | CARD ---
APPROVED REPORT EKG Measurement Heart [id number] <Conclusion> Atrial fibrillation with rapid ventricular response Abnormal ECG
[2016-11-16] MEDS ORDERED: Valproate 500 MG in Sodium Chloride 0.9% 100 ML IVPB ONE (13:45)
[2016-11-16] MEDS: Digoxin 125 mcg (0.125 mg) Tab PO SCH (13:57)
[2016-11-16] MEDS: Magnesium Sulfate 1 gm in D5W 1 GM/100 ML BAG IVPB SCH ×2 (13:58→16:00)
--- NOTE | 2016-11-16 15:00 | MRI ---
PROCEDURE: Magnetic Resonance Angiography Brain HISTORY: TIA COMPARISON: None available. TECHNIQUE: 3D time of flight MR angiography of the intracranial arteries was performed. Rotating maximum intensity projection images were generated. FINDINGS: INTERNAL CEREBRAL ARTERIES: Normal in caliber. The skull base, petrous, cavernous and supraclinoid segments are bilaterally widely patient. ANTERIOR CEREBRAL ARTERIES: Normal in caliber. A1 and A2 segments are widely patent. Smaller distal branches unremarkable, as visualized. MIDDLE CEREBRAL ARTERIES: Normal in caliber. M1 and M2 segments are widely patent. Perisylvian branches grossly symmetric. POSTERIOR CIRCULATION: Basilar Artery: Normal in caliber. Distal Vertebral Arteries: Normal in caliber. The left vertebral artery is dominant, an anatomic variant. Posterior Cerebral Arteries: There is origin of bilateral posterior cerebral arteries with hypoplastic P1 segments, an anatomic variant. Posterior Inferior Cerebellar Arteries: Normal in caliber. ANEURYSM/ VASCULAR MALFORMATIONS: None. OTHER FINDINGS: None. IMPRESSION: No evidence of occlusion or definite significant stenosis. Anatomic variants as described above.
--- NOTE | 2016-11-16 15:52 | MRI ---
PROCEDURE: MRI BRAIN WITHOUT CONTRAST HISTORY: TIA COMPARISON: Head CT dated 10/21/2016, brain MRI 08/23/2016. TECHNIQUE: Multiplanar, multisequence MR images of the brain were obtained without intravenous contrast enhancement. FINDINGS: HEMORRHAGE: None DWI: No evidence of an acute or early subacute infarction. BRAIN PARENCHYMA: Stable age-related near disc degenerative change identified comprised of diffuse cerebral atrophy and chronic microangiopathy once again. No cortical edema is identified and there are no definite acute intracranial findings. The midline craniotomy remains grossly unremarkable swells craniocervical junction. VENTRICLES: Unremarkable. No hydrocephalus. CRANIUM: Unremarkable. ORBITS: Grossly unremarkable. PARANASAL SINUSES/MASTOIDS: Minimal right mastoiditis is encounter with [id number] left mastoiditis. VASCULAR SYSTEM: Skull base flow voids intact. OTHER FINDINGS: None. IMPRESSION: Stable age related neuro degenerate change identified without acute is over infarction mass-effect hydrocephalus or cortical edema. No suspicious extra-axial collection is encountered in the interval. Follow-up CT or MRI are available as indicated.
--- NOTE | 2016-11-16 15:56 | MRI ---
PROCEDURE: MR Angiography of the neck without contrast HISTORY: TIA COMPARISON: None available. TECHNIQUE: 3D [id number] angiography of the neck was performed. Rotating maximum intensity projection images of the cervical carotid and vertebral arteries were generated. The origins of the common carotid arteries were not visualized, which is a limitation inherent to the non-contrast time of flight technique. FINDINGS: RIGHT CAROTID ARTERIES: Common Carotid Artery: Normal. Carotid Bifurcation: Normal. Internal Carotid Artery:Normal. External Carotid Artery (proximal branches): Normal. LEFT CAROTID ARTERIES: Common Carotid Artery: Normal. Carotid Bifurcation: Normal. Internal Carotid Artery:Normal. External Carotid Artery (proximal branches): Normal. VERTEBRAL ARTERIES: Right Vertebral Artery: Artifacts limit the interpretation with the right vertebral artery appearing patent. Left Vertebral Artery: Artifacts limit the interpretation with the left vertebral artery appearing patent. OTHER FINDINGS: None. IMPRESSION: Widely patent bilateral common and internal carotid arteries with no significant stenosis appreciated.
--- NOTE | 2016-11-16 18:15 | CP.PCM.PN ---
<WilliamsJustin R - Last Filed: 11/16/16 18:12> Subjective - Date & Time of Evaluation Date of Evaluation: 11/16/16 Time of Evaluation: 11:20 - Subjective Subjective: Patient was S and E at bedside. Patient stated that he had a headache last night which kept him up at night. Patient denied chest pain, sob, n/v/d/c, f/c, blurry vision, dizziness. Objective - Vital Signs/Intake and Output Vital Signs (last 24 hours): Temp Pulse Resp BP Pulse Ox 97.3 F L 88 20 135/72 96 11/16/16 16:00 11/16/16 16:00 11/16/16 16:00 11/16/16 17:32 11/16/16 16:00 - Medications Medications: Current Medications Albuterol/Ipratropium (Duoneb 3 Mg/0.5 Mg (3 Ml) Ud) 3 ml INH RQ6 [facility] Last Admin: 11/16/16 13:26 Dose: 3 ml Alprazolam (Xanax) 0.5 mg PO DAILY [facility] Last Admin: 11/16/16 09:32 Dose: 0.5 mg Aspirin (Aspirin Chewable) 81 mg PO DAILY [facility] Last Admin: 11/16/16 09:33 Dose: 81 mg Bupropion HCl (Wellbutrin Xl) 150 mg PO DAILY [facility] Last Admin: 11/16/16 09:32 Dose: 150 mg Digoxin (Lanoxin) 0.125 mg PO DAILY@1400 [facility] Last Admin: 11/16/16 13:57 Dose: 0.125 mg Diltiazem HCl (Cardizem) 30 mg PO QID [facility] Last Admin: 11/16/16 17:28 Dose: 30 mg Heparin Sodium (Porcine) (Heparin) 5,000 units SC Q8 [facility] Last Admin: 11/16/16 13:58 Dose: Not Given Metoprolol Tartrate (Lopressor) 25 mg PO BID [facility] Last Admin: 11/16/16 17:32 Dose: 25 mg Morphine Sulfate (Morphine Extended Release Tab) 15 mg PO BID [facility] Last Admin: 11/16/16 17:32 Dose: 15 mg Oxycodone/Acetaminophen (Percocet 5/325 Mg Tab) 1 tab PO QID PRN PRN Reason: Pain, moderate (4-7) Stop: 11/18/16 18:58 Last Admin: 11/16/16 17:26 Dose: 1 tab Pantoprazole Sodium (Protonix Ec Tab) 40 mg PO DAILY [facility] Last Admin: 11/16/16 09:32 Dose: 40 mg Paroxetine HCl (Paxil) 40 mg PO DAILY [facility] Last Admin: 11/16/16 09:32 Dose: 40 mg Pneumococcal Polyvalent Vaccine (Pneumovax 23 Vaccine) 0.5 ml IM .ONCE ONE Stop: 11/18/16 10:01 Rivaroxaban (Xarelto) 20 mg PO DAILY [facility] Last Admin: 11/16/16 09:33 Dose: 20 mg Rosuvastatin Calcium (Crestor) 5 mg PO HS [facility] Last Admin: 11/15/16 21:15 Dose: 5 mg Fluticasone/Salmeterol (Advair Diskus 250/50) 1 puff IH RQD [facility] Last Admin: 11/16/16 09:55 Dose: Not Given - Labs Labs: PT 11.8 SECONDS (9.7-12.2) 11/15/16 14:17 INR 1.0 11/15/16 14:17 APTT 31 SECONDS (21-34) 11/15/16 14:17 - Constitutional Appears: Well, Non-toxic, No Acute Distress - Head Exam Head Exam: NORMAL INSPECTION - Eye Exam Eye Exam: Normal appearance - ENT Exam ENT Exam: Mucous Membranes Moist - Neck Exam Neck Exam: absent: Tenderness - Respiratory Exam Respiratory Exam: Clear to Ausculation Bilateral, NORMAL BREATHING PATTERN - Cardiovascular Exam Cardiovascular Exam: Irregular Rhythm - GI/Abdominal Exam GI & Abdominal Exam: Soft, Normal Bowel Sounds - Rectal Exam Rectal Exam: Deferred - Extremities Exam Extremities Exam: Normal Inspection - Neurological Exam Neurological Exam: Alert, Awake, Oriented x3 - Psychiatric Exam Psychiatric exam: Normal Affect, Normal Mood - Skin Skin Exam: Dry, Intact, Normal Color, Warm Assessment and Plan - Assessment and Plan (Free Text) Assessment: 1.) Chest Pain * Observe to telemetry * In the ED, Aspirin 325mg POx1 * Will start Aspirin 81mg PO 1x daily * c/w Metoprolol Tartrate 25mg daily HOLD SBP<100 and HR<60 * c/w Cardizem 30mg 4x aday HOLD SBP<100 and HR<60 * c/w digoxin .125mg po daily * Troponin negative x3 * ECHO (06/06/16): Left atrial enlarged, right atrium dilated, LV:60% * HgA1C 5.6 on last admission in 09/2016 * Lipid Panel wnl 5.6 on last admission in 09/2016 * TSH wnl 5.6 on last admission in 09/2016 2) Slurred Speech 11/16: Dr Cabrales, neurology,given headache and abnormal neuro exam recommended MRI of brain w/out contrast and MRA of head/neck. hx of TIA. 11/16: Neck MRA: Widely patent bilateral common and internal carotid arteries with no significant stenosis appreciated. 11/16: Head MRA: No evidence of occlusion or definite significant stenosis. 11/16: Brain MRI: Stable age related neuro degenerate change identified without acute is over infarction mass-effect hydrocephalus or cortical edema. No suspicious extra-axial collection is encountered in the interval. Follow- up CT or MRI are available as indicated. CT head -> no intracranial hemorrhage. scattered nonspecific white matter changes. carotid dopplers ordered neurology consulted, Dr Cabrales. Follow up recommendations. 3.) Headache 11/16: Per Dr Cabrales, neurology, will treat the headache with depakote 500 mg IV push, magnesium sulfate 2 grams IV and decadron 10 mg IV ONCE. 4.) Chronic Pain * History of spinal stenosis, extensive right rotator cuff tear * Start Percocet 1 tab 5/325 q6h PRN pain 5.) History of PTSD, Anxiety, Bipolar, Depression * c/w Paxil 40mg PO daily * c/w Wellbutrin 150mg daily * c/w xanax 0.5mg PO daily as needed 6.) Hyperlipidemia * c/w Crestor 5mg POqHS * Lipid Panel in AM 7.) History of COPD * Patient is not in active exacerbation * Duonebs [id number] PRN for shortness of breath * Advair 250/50 1 puff q12 hours 8.) History of Atrial Fibrillation * c/w Metoprolol Tartrate 25mg daily Hold SBP<100 and HR<60 * c/w Cardizem 30mg QID Hold SBP<100 and HR<60 * restarted xarelto 20mg po daily, patient has been off Xarelto due possible surgery for rotator cuff * HASBLED:4 * [id number]:3 * c/w Aspirin 81mg PO daily 9.) History of Hepatitis C * not on current therapy at this time 10.) Prophylactic Treatment * SCDS bilateral * protonix 40mg po daily * heparin 5000u sc q8 <SumitAdolfo M - Last Filed: 11/17/16 17:14> Objective - Vital Signs/Intake and Output Vital Signs (last 24 hours): Temp Pulse Resp BP Pulse Ox 97.6 F 95 H 20 111/63 97 11/17/16 08:02 11/17/16 17:03 11/17/16 08:02 11/17/16 14:35 11/17/16 08:02 - Medications Medications: Current Medications Albuterol/Ipratropium (Duoneb 3 Mg/0.5 Mg (3 Ml) Ud) 3 ml INH RQ6 [facility] Last Admin: 11/17/16 01:51 Dose: Not Given Alprazolam (Xanax) 0.5 mg PO DAILY [facility] Last Admin: 11/17/16 09:45 Dose: Not Given Aspirin (Aspirin Chewable) 81 mg PO DAILY [facility] Last Admin: 11/17/16 09:44 Dose: 81 mg Bupropion HCl (Wellbutrin Xl) 150 mg PO DAILY [facility] Last Admin: 11/17/16 09:44 Dose: 150 mg Digoxin (Lanoxin) 0.125 mg PO DAILY@1400 [facility] Last Admin: 11/17/16 14:36 Dose: 0.125 mg Diltiazem HCl (Cardizem) 30 mg PO QID [facility] Last Admin: 11/17/16 14:36 Dose: 30 mg Heparin Sodium (Porcine) (Heparin) 5,000 units SC Q8 [facility] Last Admin: 11/17/16 14:37 Dose: 5,000 units Metoprolol Tartrate (Lopressor) 25 mg PO BID [facility] Last Admin: 11/17/16 09:44 Dose: 25 mg Morphine Sulfate (Morphine Extended Release Tab) 15 mg PO BID [facility] Last Admin: 11/17/16 09:45 Dose: 15 mg Oxycodone/Acetaminophen (Percocet 5/325 Mg Tab) 1 tab PO QID PRN PRN Reason: Pain, moderate (4-7) Stop: 11/18/16 18:58 Last Admin: 11/17/16 14:36 Dose: 1 tab Pantoprazole Sodium (Protonix Ec Tab) 40 mg PO DAILY [facility] Last Admin: 11/17/16 09:45 Dose: 40 mg Paroxetine HCl (Paxil) 40 mg PO DAILY [facility] Last Admin: 11/17/16 09:44 Dose: 40 mg Pneumococcal Polyvalent Vaccine (Pneumovax 23 Vaccine) 0.5 ml IM .ONCE ONE Stop: 11/18/16 10:01 Rivaroxaban (Xarelto) 20 mg PO DAILY [facility] Last Admin: 11/17/16 09:44 Dose: 20 mg Rosuvastatin Calcium (Crestor) 5 mg PO HS [facility] Last Admin: 11/16/16 22:09 Dose: 5 mg Fluticasone/Salmeterol (Advair Diskus 250/50) 1 puff IH RQD [facility] Last Admin: 11/16/16 09:55 Dose: Not Given - Labs Labs: PT 11.8 SECONDS (9.7-12.2) 11/15/16 14:17 INR 1.0 11/15/16 14:17 APTT 31 SECONDS (21-34) 11/15/16 14:17 Attending/Attestation - Attestation I have personally seen and examined this patient.: Yes I have fully participated in the care of the patient.: Yes I have reviewed all pertinent clinical information, including history, physical exam and plan: Yes Notes (Text): 11/17/16 17:10 Patient was seen and examined at bedside with the resident He still complains of for headache, Patient will be evaluated by neurology and we will follow up recommendations Acute coronary syndrome is ruled out Discussed the plan of care with the resident. I agree with the history and physical and assessment/plan by the resident.
[2016-11-17] MEDS: Albuterol-Ipratrop 3 mg / 0.5 (3 ml) UD INH SCH ×4 (01:51→20:55)
[2016-11-17] MEDS: Oxycodone/Acetaminophen 5/325 mg Tab PO PRN ×3 (07:07→18:28)
[2016-11-17] MEDS: buPROPion 150 mg/24 Hours XL Tab PO SCH (09:44)
[2016-11-17] MEDS: Pantoprazole 40 mg EC Tab PO SCH (09:45)
[2016-11-17] MEDS: Morphine 15 mg SR Tab PO SCH ×2 (09:45→19:35)
--- NOTE | 2016-11-17 12:02 | CARD ---
APPROVED REPORT EKG Measurement Heart [id number] <Conclusion> Atrial fibrillation Abnormal ECG
[2016-11-17] MEDS: Digoxin 125 mcg (0.125 mg) Tab PO SCH (14:36)
--- NOTE | 2016-11-17 14:51 | VASCLAB ---
PROCEDURE: HISTORY: slurred speech noticed by ; hx of TIA COMPARISON: None available. TECHNIQUE: Grayscale and duplex Doppler evaluation of the cervical carotid and vertebral arteries were performed. The common carotid, carotid bifurcations and cervical Internal Carotid Artery (ICA) and proximal External Carotid Artery (ECA) were evaluated. The vertebral arteries were evaluated for gross patency and flow direction. Report prepared by Eric Lopez, BS, RVT FINDINGS: RIGHT CAROTID ARTERIES: 1. Common Carotid Artery: No significant focal plaque formation of the right common carotid artery. Maximum Peak Systolic velocity: 74 cm/sec: End-diastolic velocity 16 cm/sec. 2. Carotid Bifurcation: plaque formation. Maximum Peak Systolic velocity: 70 cm/sec: End-diastolic velocity 19 cm/sec. 3. Internal Carotid Artery: Plaque description: 3.1. Proximal Segment: Peak systolic velocity 54 cm/sec: End-diastolic velocity 20 cm/sec - % stenosis 0-15% 3.2. Middle Segment: Peak systolic velocity 81 cm/sec: End-diastolic velocity 29 cm/sec - % stenosis 0-15% 3.3. Distal Segment: Peak systolic velocity 81 cm/sec: End-diastolic velocity 32 cm/sec - % stenosis 0-15% 4. External Carotid Artery: No significant focal plaque formation. Peak systolic velocity 88 cm/sec 5. ICA/CCA Ratio: 1.1 LEFT CAROTID ARTERIES: 1. Common Carotid Artery: No significant focal plaque formation of the left common carotid artery. Maximum Peak Systolic velocity: 79 cm/sec: End-diastolic velocity 20 cm/sec. 2. Carotid Bifurcation: plaque formation. Maximum Peak Systolic velocity: 60 cm/sec: End-diastolic velocity 12 cm/sec. 3. Internal Carotid Artery: Plaque description: 3.1. Proximal Segment: Peak systolic velocity 74 cm/sec: End-diastolic velocity 20 cm/sec - % stenosis 0-15% 3.2. Middle Segment: Peak systolic velocity 41 cm/sec: End-diastolic velocity 16 cm/sec - % stenosis 0-15% 3.3. Distal Segment: Peak systolic velocity 50 cm/sec: End-diastolic velocity 21 cm/sec - % stenosis 0-15% 4. External Carotid Artery: No significant focal plaque formation. Peak systolic velocity 112 cm/sec 5. ICA/CCA Ratio: 0.9 VERTEBRAL ARTERIES: 1. Right Vertebral Artery: The right vertebral artery flow direction is antegrade. 2. Left Vertebral Artery: The left vertebral artery flow direction is antegrade. OTHER FINDINGS: 1. Right Brachial Blood pressure: 120 mmHg. 2. Left Brachial Blood pressure: 120 mmHg. IMPRESSION: RIGHT: Duplex scan does not suggest hemodynamically significant stenosis of the right extracranial carotid arteries. LEFT: Duplex scan does not suggest hemodynamically significant stenosis of the left extracranial carotid arteries.
[2016-11-17 15:50] LABS: RBC URINE 2187 /hpf (0-3); URINE BILIRUBIN NEGATIVE (NEGATIVE); URINE BLOOD 3+ (NEGATIVE); URINE COLOR Red (YELLOW); URINE GLUCOSE (UA) NORMAL (Normal); URINE KETONE TRACE mg/dL (NEGATIVE); URINE LEUKOCYTE ESTERASE TRACE Leu/uL (Negative); URINE PROTEIN 2+ mg/dL (NEGATIVE); URINE UROBILINOGEN NORMAL mg/dL (0.2-1.0); WBC URINE 1 /hpf (0-5)
--- NOTE | 2016-11-17 16:31 | CP.PCM.PN ---
<WilliamsJustin R - Last Filed: 11/17/16 16:28> Subjective - Date & Time of Evaluation Date of Evaluation: 11/17/16 Time of Evaluation: 10:30 - Subjective Subjective: Patient S and E at bedside. Patient c/o of headache which kept him up night. He described it as pulsating and located behind his eyes saying "feels like my eyes will pop out". He also said he noticed blood in his urine earlier in the morning, as well as blood in his stool. He denied chest pain, abd pain, sob, f/c , n/v/d/c. Objective - Vital Signs/Intake and Output Vital Signs (last 24 hours): Temp Pulse Resp BP Pulse Ox 97.6 F 63 20 111/63 97 11/17/16 08:02 11/17/16 12:38 11/17/16 08:02 11/17/16 14:35 11/17/16 08:02 Intake and Output: 11/17/16 11/17/16 06:59 18:59 Intake Total 450 Balance 450 - Medications Medications: Current Medications Albuterol/Ipratropium (Duoneb 3 Mg/0.5 Mg (3 Ml) Ud) 3 ml INH RQ6 [facility] Last Admin: 11/17/16 01:51 Dose: Not Given Alprazolam (Xanax) 0.5 mg PO DAILY [facility] Last Admin: 11/17/16 09:45 Dose: Not Given Aspirin (Aspirin Chewable) 81 mg PO DAILY [facility] Last Admin: 11/17/16 09:44 Dose: 81 mg Bupropion HCl (Wellbutrin Xl) 150 mg PO DAILY [facility] Last Admin: 11/17/16 09:44 Dose: 150 mg Digoxin (Lanoxin) 0.125 mg PO DAILY@1400 [facility] Last Admin: 11/17/16 14:36 Dose: 0.125 mg Diltiazem HCl (Cardizem) 30 mg PO QID [facility] Last Admin: 11/17/16 14:36 Dose: 30 mg Heparin Sodium (Porcine) (Heparin) 5,000 units SC Q8 [facility] Last Admin: 11/17/16 14:37 Dose: 5,000 units Metoprolol Tartrate (Lopressor) 25 mg PO BID [facility] Last Admin: 11/17/16 09:44 Dose: 25 mg Morphine Sulfate (Morphine Extended Release Tab) 15 mg PO BID [facility] Last Admin: 11/17/16 09:45 Dose: 15 mg Oxycodone/Acetaminophen (Percocet 5/325 Mg Tab) 1 tab PO QID PRN PRN Reason: Pain, moderate (4-7) Stop: 11/18/16 18:58 Last Admin: 11/17/16 14:36 Dose: 1 tab Pantoprazole Sodium (Protonix Ec Tab) 40 mg PO DAILY [facility] Last Admin: 11/17/16 09:45 Dose: 40 mg Paroxetine HCl (Paxil) 40 mg PO DAILY [facility] Last Admin: 11/17/16 09:44 Dose: 40 mg Pneumococcal Polyvalent Vaccine (Pneumovax 23 Vaccine) 0.5 ml IM .ONCE ONE Stop: 11/18/16 10:01 Rivaroxaban (Xarelto) 20 mg PO DAILY [facility] Last Admin: 11/17/16 09:44 Dose: 20 mg Rosuvastatin Calcium (Crestor) 5 mg PO HS [facility] Last Admin: 11/16/16 22:09 Dose: 5 mg Fluticasone/Salmeterol (Advair Diskus 250/50) 1 puff IH RQD [facility] Last Admin: 11/16/16 09:55 Dose: Not Given - Labs Labs: PT 11.8 SECONDS (9.7-12.2) 11/15/16 14:17 INR 1.0 11/15/16 14:17 APTT 31 SECONDS (21-34) 11/15/16 14:17 - Constitutional Appears: Well, Non-toxic, No Acute Distress - Head Exam Head Exam: NORMAL INSPECTION - Eye Exam Eye Exam: EOMI, Normal appearance, PERRL - ENT Exam ENT Exam: Mucous Membranes Moist, Normal Exam - Neck Exam Neck Exam: Full ROM - Respiratory Exam Respiratory Exam: Clear to Ausculation Bilateral, NORMAL BREATHING PATTERN - Cardiovascular Exam Cardiovascular Exam: REGULAR RHYTHM, RRR, +S1, +S2 - GI/Abdominal Exam GI & Abdominal Exam: Soft, Normal Bowel Sounds. absent: Tenderness - Rectal Exam Rectal Exam: Deferred - Extremities Exam Extremities Exam: Full ROM, Normal Capillary Refill, Normal Inspection - Neurological Exam Neurological Exam: Alert, Awake, Oriented x3 - Psychiatric Exam Psychiatric exam: Normal Affect, Normal Mood - Skin Skin Exam: Dry, Intact, Normal Color, Warm Assessment and Plan - Assessment and Plan (Free Text) Assessment: 1.) Chest Pain * Observe to telemetry * In the ED, Aspirin 325mg POx1 * Will start Aspirin 81mg PO 1x daily * c/w Metoprolol Tartrate 25mg daily HOLD SBP<100 and HR<60 * c/w Cardizem 30mg 4x aday HOLD SBP<100 and HR<60 * c/w digoxin .125mg po daily * Troponin negative x3 * ECHO (06/06/16): Left atrial enlarged, right atrium dilated, LV:60% * HgA1C 5.6 on last admission in 09/2016 * Lipid Panel wnl 5.6 on last admission in 09/2016 * TSH wnl 5.6 on last admission in 09/2016 2) Slurred Speech 11/16: Dr Cabrales, neurology,given headache and abnormal neuro exam recommended MRI of brain w/out contrast and MRA of head/neck. hx of TIA. 11/16: Neck MRA: Widely patent bilateral common and internal carotid arteries with no significant stenosis appreciated. 11/16: Head MRA: No evidence of occlusion or definite significant stenosis. 11/16: Brain MRI: Stable age related neuro degenerate change identified without acute is over infarction mass-effect hydrocephalus or cortical edema. No suspicious extra-axial collection is encountered in the interval. Follow- up CT or MRI are available as indicated. CT head -> no intracranial hemorrhage. scattered nonspecific white matter changes. carotid dopplers ordered neurology consulted, Dr Cabrales. Follow up recommendations. 3.) Headache 11/16: Per Dr Cabrales, neurology, will treat the headache with depakote 500 mg IV push, magnesium sulfate 2 grams IV and decadron 10 mg IV ONCE. 4.) Hematochezia 11/17: Pt c/o of blood in stool today. Will f/u on FOBT. 5.) Hematuria 11/17: Pt c/o of red urine today. Ordered digoxin level. Ordered UA. 6.) Chronic Pain * History of spinal stenosis, extensive right rotator cuff tear * Start Percocet 1 tab 5/325 q6h PRN pain 7.) History of PTSD, Anxiety, Bipolar, Depression * c/w Paxil 40mg PO daily * c/w Wellbutrin 150mg daily * c/w xanax 0.5mg PO daily as needed 8.) Hyperlipidemia * c/w Crestor 5mg POqHS * Lipid Panel in AM 9.) History of COPD * Patient is not in active exacerbation * Duonebs [id number] PRN for shortness of breath * Advair 250/50 1 puff q12 hours 10.) History of Atrial Fibrillation * c/w Metoprolol Tartrate 25mg daily Hold SBP<100 and HR<60 * c/w Cardizem 30mg QID Hold SBP<100 and HR<60 * restarted xarelto 20mg po daily, patient has been off Xarelto due possible surgery for rotator cuff * HASBLED:4 * [id number]:3 * c/w Aspirin 81mg PO daily 11.) History of Hepatitis C * not on current therapy at this time 12.) Prophylactic Treatment * SCDS bilateral * protonix 40mg po daily * heparin 5000u sc q8 <Adolfo Arana M - Last Filed: 11/19/16 14:19> Objective - Vital Signs/Intake and Output Vital Signs (last 24 hours): Temp Pulse Resp BP Pulse Ox 97.8 F 71 20 126/72 95 11/19/16 07:00 11/19/16 07:00 11/19/16 07:00 11/19/16 09:23 11/19/16 07:00 - Medications Medications: Current Medications Albuterol/Ipratropium (Duoneb 3 Mg/0.5 Mg (3 Ml) Ud) 3 ml INH RQ6 [facility] Last Admin: 11/19/16 13:09 Dose: 3 ml Alprazolam (Xanax) 0.5 mg PO HS [facility] Last Admin: 11/18/16 21:39 Dose: 0.5 mg Aspirin (Aspirin Chewable) 81 mg PO DAILY [facility] Last Admin: 11/19/16 09:23 Dose: 81 mg Bupropion HCl (Wellbutrin Xl) 150 mg PO DAILY [facility] Last Admin: 11/19/16 09:24 Dose: 150 mg Digoxin (Lanoxin) 0.125 mg PO DAILY@1400 [facility] Last Admin: 11/18/16 14:06 Dose: 0.125 mg Diltiazem HCl (Cardizem) 30 mg PO QID [facility] Last Admin: 11/19/16 09:23 Dose: 30 mg Heparin Sodium (Porcine) (Heparin) 5,000 units SC Q12 [facility] Last Admin: 11/19/16 10:06 Dose: Not Given Metoprolol Tartrate (Lopressor) 25 mg PO BID [facility] Last Admin: 11/19/16 09:23 Dose: 25 mg Morphine Sulfate (Morphine Extended Release Tab) 15 mg PO BID [facility] Last Admin: 11/19/16 09:24 Dose: 15 mg Oxycodone/Acetaminophen (Percocet 5/325 Mg Tab) 1 tab PO Q6H PRN PRN Reason: Pain, moderate (4-7) Stop: 11/22/16 05:47 Last Admin: 11/19/16 12:55 Dose: 1 tab Pantoprazole Sodium (Protonix Ec Tab) 40 mg PO DAILY [facility] Last Admin: 11/19/16 09:23 Dose: 40 mg Paroxetine HCl (Paxil) 40 mg PO DAILY [facility] Last Admin: 11/19/16 09:23 Dose: 40 mg Rivaroxaban (Xarelto) 20 mg PO DAILY [facility] Last Admin: 11/18/16 09:30 Dose: 20 mg Rosuvastatin Calcium (Crestor) 5 mg PO HS [facility] Last Admin: 11/18/16 21:39 Dose: 5 mg Fluticasone/Salmeterol (Advair Diskus 250/50) 1 puff IH RQD [facility] Last Admin: 11/19/16 07:30 Dose: 1 puff - Labs Labs: 11/19/16 07:05 11/19/16 07:05 PT 11.8 SECONDS (9.7-12.2) 11/15/16 14:17 INR 1.0 11/15/16 14:17 APTT 31 SECONDS (21-34) 11/15/16 14:17 Attending/Attestation - Attestation I have personally seen and examined this patient.: Yes I have fully participated in the care of the patient.: Yes I have reviewed all pertinent clinical information, including history, physical exam and plan: Yes Notes (Text): 11/19/16 14:18 Patient seen and examined at bedside with the resident We will start the patient on anticoagulation for atrial fibrillation and monitor Cardiology consultation will be requested I discussed the plan of care with the resident I agree with the history and physical and assessment/plan by the resident
[2016-11-17] MEDS: Fluticasone-Salmeterol 250-50mcg Diskus IH SCH (20:55)
[2016-11-18] MEDS: Albuterol-Ipratrop 3 mg / 0.5 (3 ml) UD INH SCH ×4 (01:05→19:33)
[2016-11-18] MEDS: Oxycodone/Acetaminophen 5/325 mg Tab PO PRN ×2 (06:45→13:19)
[2016-11-18 08:42] LABS: BASO % 0.2 % (0.0-2.0); EOS % 0.1 % (0.0-4.0); HEMATOCRIT 35.7 % (35.0-51.0); LYMPH # 2.2 K/uL (1.0-4.3); LYMPH % 24.8 % (20.0-40.0); MEAN CELL VOLUME 91.1 fL (80.0-94.0); MEAN CORPUSCULAR HEMOGLOBIN 30.8 pg (27.0-31.0); MEAN CORPUSCULAR HGB CONC 33.8 g/dL (33.0-37.0); MEAN PLATELET VOLUME 8.2 fL (7.2-11.7); MONO # 0.7 K/uL (0.0-0.8); MONO % 7.9 % (0.0-10.0); RED CELL DISTRIBUTION WIDTH 13.3 % (11.5-14.5); WHITE BLOOD COUNT 9.1 K/uL (4.8-10.8)
[2016-11-18 08:51] LABS: CHLORIDE 103 mmol/L (98-107); POTASSIUM 3.7 mmol/L (3.6-5.2); SODIUM 140 mmol/L (132-148)
[2016-11-18 08:53] LABS: AST/SGOT 31 U/L (17-59); BILIRUBIN,TOTAL 0.5 mg/dL (0.2-1.3); CARBON DIOXIDE 24 mmol/L (22-30); GFR AFRICAN-AMERICAN > 60
[2016-11-18 08:54] LABS: ALB/GLOB RATIO 1.2 (1.0-2.1); ALKALINE PHOSPHATASE 66 U/L (38-126); ALT/SGPT 46 U/L (21-72); BLOOD UREA NITROGEN 15 mg/dL (9-20); CALCIUM 8.7 mg/dl (8.6-10.4); GLUCOSE,RANDOM 98 mg/dL (75-110); PHOSPHOROUS 3.4 mg/dL (2.5-4.5); TOTAL PROTEIN 6.4 g/dL (6.3-8.3)
[2016-11-18] MEDS: buPROPion 150 mg/24 Hours XL Tab PO SCH (09:30)
[2016-11-18] MEDS: Pantoprazole 40 mg EC Tab PO SCH (09:30)
[2016-11-18] MEDS: Morphine 15 mg SR Tab PO SCH ×2 (09:36→17:56)
[2016-11-18] MEDS ORDERED: Pneumococcal 23-Valent Vaccine IM ONE (10:00)
[2016-11-18] MEDS: Digoxin 125 mcg (0.125 mg) Tab PO SCH (14:06)
--- NOTE | 2016-11-18 14:58 | CP.PCM.CON ---
<Shin Desir - Last Filed: 11/18/16 15:33> History of Present Illness - History of Present Illness History of Present Illness: This is a 61 yo male with past medical hx of CAD, A fib, [place], TIA presenting with headache and chest pain and slurred speech. Pt has been having a constant headache diffusely located with some radiation into his neck and left arm along with associated numbness and tingling. The chest pain is substernal and he is saying there is radiation into his left arm as well. He describes the pain as sharp and intermittent. The pain is there currently. He has a longstanding hx of a fib and in the ER the rate was in the 120s. He has not been taking his xarelto because he believes he will be going for an orthopedic sx procedure soon. This past tuesday, he says he also started developing some hematuria with pain. It is still going on and there are no clots. It happens everytime he urinates. It has never happened before. He says he was not on xarelto when it started. However, he was put on xarelto in the hospital and this was then held because of the hematuria. PMH: CAD, A fib, [place], TIA, rotator cuff tear PSH: left knee sx, appendectomy, hernia repair Allergies: NKDA FH: CHF and CVA in family Social hx : Former smoker. Denies drinking. Denies drug use. Lives with fiancee. Review of Systems - Review of Systems All systems: reviewed and no additional remarkable complaints except Review of Systems: negative except per HPI. Past Patient History - Infectious Disease Hx of Infectious Diseases: None - Tetanus Immunizations Tetanus Immunization: Unknown - Past Medical History & Family History Past Medical History?: Yes - Past Social History Smoking Status: Former Smoker Chewing Tobacco Use: No Cigar Use: No Alcohol: None Drugs: Denies Home Situation {Lives}: With Family Domestic Violence: Negative - CARDIAC Hx Hypertension: Yes - PULMONARY Hx Chronic Obstructive Pulmonary Disease (COPD): Yes - NEUROLOGICAL Hx Transient Ischemic Attacks (TIA): Yes (March 2016/JUN 2016) - HEENT Hx HEENT Problems: Yes Hx Cataracts: Yes ("early stages" as per patient) - RENAL Hx Chronic Kidney Disease: No - ENDOCRINE/METABOLIC Hx Endocrine Disorders: No - HEMATOLOGICAL/ONCOLOGICAL Hx Blood Disorders: No Hx Human Immunodeficiency Virus (HIV): No - INTEGUMENTARY Hx Dermatological Problems: Yes Hx Psoriasis: Yes - MUSCULOSKELETAL/RHEUMATOLOGICAL Hx Arthritis: Yes - GASTROINTESTINAL Hx Gastrointestinal Disorders: No - GENITOURINARY/GYNECOLOGICAL Hx Genitourinary Disorders: No Hx Sexually Transmitted Disorders: No - PSYCHIATRIC Hx Anxiety: Yes Hx Bipolar Disorder: Yes Hx Depression: Yes Hx Post Traumatic Stress Disorder: Yes (1985 of 2 y/o daughter) Hx Substance Use: No - SURGICAL HISTORY Hx Appendectomy: Yes Hx Tonsillectomy: Yes - ANESTHESIA Hx Anesthesia: Yes Hx Anesthesia Reactions: No Hx Malignant Hyperthermia: No Has any member of the family had a problem w/ anesthesia?: No Meds Allergies/Adverse Reactions: Allergies Allergy/AdvReac Type Severity Reaction Status Date / Time No Known Allergies Allergy Verified 12/13/16 08:37 - Medications Medications: Current Medications Albuterol/Ipratropium (Duoneb 3 Mg/0.5 Mg (3 Ml) Ud) 3 ml INH RQ6 [facility] Last Admin: 11/18/16 13:42 Dose: 3 ml Alprazolam (Xanax) 0.5 mg PO HS [facility] Aspirin (Aspirin Chewable) 81 mg PO DAILY [facility] Last Admin: 11/18/16 09:30 Dose: 81 mg Bupropion HCl (Wellbutrin Xl) 150 mg PO DAILY [facility] Last Admin: 11/18/16 09:30 Dose: 150 mg Digoxin (Lanoxin) 0.125 mg PO DAILY@1400 [facility] Last Admin: 11/18/16 14:06 Dose: 0.125 mg Diltiazem HCl (Cardizem) 30 mg PO QID [facility] Last Admin: 11/18/16 13:17 Dose: 30 mg Metoprolol Tartrate (Lopressor) 25 mg PO BID [facility] Last Admin: 11/18/16 09:30 Dose: 25 mg Morphine Sulfate (Morphine Extended Release Tab) 15 mg PO BID [facility] Last Admin: 11/18/16 09:36 Dose: 15 mg Oxycodone/Acetaminophen (Percocet 5/325 Mg Tab) 1 tab PO QID PRN PRN Reason: Pain, moderate (4-7) Stop: 11/18/16 18:58 Last Admin: 11/18/16 13:19 Dose: 1 tab Pantoprazole Sodium (Protonix Ec Tab) 40 mg PO DAILY [facility] Last Admin: 11/18/16 09:30 Dose: 40 mg Paroxetine HCl (Paxil) 40 mg PO DAILY [facility] Last Admin: 11/18/16 09:36 Dose: 40 mg Rivaroxaban (Xarelto) 20 mg PO DAILY [facility] Last Admin: 11/18/16 09:30 Dose: 20 mg Rosuvastatin Calcium (Crestor) 5 mg PO HS [facility] Last Admin: 11/17/16 21:53 Dose: 5 mg Fluticasone/Salmeterol (Advair Diskus 250/50) 1 puff IH RQD [facility] Last Admin: 11/17/16 20:55 Dose: Not Given Physical Exam - Constitutional Appears: Non-toxic, No Acute Distress - Head Exam Head Exam: ATRAUMATIC, NORMAL INSPECTION, NORMOCEPHALIC - Eye Exam Eye Exam: EOMI - ENT Exam ENT Exam: Mucous Membranes Moist - Neck Exam Neck exam: Positive for: Full Rom, Normal Inspection - Respiratory Exam Respiratory Exam: NORMAL BREATHING PATTERN. absent: Respiratory Distress - Cardiovascular Exam Cardiovascular Exam: Irregular Rhythm, +S1, +S2 - GI/Abdominal Exam GI & Abdominal Exam: Normal Bowel Sounds, Soft. absent: Tenderness - Extremities Exam Extremities exam: Positive for: normal inspection. Negative for: full ROM - Neurological Exam Neurological exam: Alert, Oriented x3 - Psychiatric Exam Psychiatric exam: Normal Affect, Normal Mood - Skin Skin Exam: Dry, Intact, Normal Color, Warm Results - Vital Signs Recent Vital Signs: Last Vital Signs Temp 97.8 F 11/18/16 08:35 Pulse 62 11/18/16 08:35 Resp 20 11/18/16 08:35 BP 130/70 11/18/16 09:30 Pulse Ox 94 L 11/18/16 08:35 - Labs Result Diagrams: 11/18/16 08:23 11/18/16 08:23 Labs: Laboratory Results - last 24 hr 11/18/16 11/18/16 08:23 08:23 WBC 9.1 D RBC 3.92 L Hgb 12.1 Hct 35.7 MCV 91.1 MCH 30.8 MCHC 33.8 RDW 13.3 Plt Count 176 MPV 8.2 Neut % (Auto) 67.0 Lymph % (Auto) 24.8 Rutherford % (Auto) 7.9 Eos % (Auto) 0.1 Baso % (Auto) 0.2 Neut # 6.1 Lymph # 2.2 Rutherford # 0.7 Eos # 0.0 Baso # 0.0 Sodium 140 Potassium 3.7 Chloride 103 Carbon Dioxide 24 Anion Gap 17 BUN 15 Creatinine 0.7 L Est GFR ( Amer) > 60 Est GFR (Non-Af Amer) > 60 Random Glucose 98 Calcium 8.7 Phosphorus 3.4 Magnesium 2.0 Total Bilirubin 0.5 AST 31 ALT 46 Alkaline Phosphatase 66 Total Protein 6.4 Albumin 3.6 Globulin 2.9 Albumin/Globulin Ratio 1.2 Assessment & Plan - Assessment and Plan (Free Text) Assessment: A/P -continue asa daily -continue digoxin -continue cardizem 30 po qid -lopressor 25 bid -continue crestor -add heparin dw Dr. Barlow <Kristy Barlow - Last Filed: 12/23/16 07:14> Results - Vital Signs Recent Vital Signs: Last Vital Signs Temp 97.6 F 11/26/16 16:00 Pulse 73 11/26/16 16:00 Resp 18 11/26/16 16:00 BP 98/61 L 11/26/16 16:00 Pulse Ox 95 11/26/16 16:00 - Labs Result Diagrams: 11/26/16 06:42 11/26/16 06:38 Assessment & Plan (1) Chest discomfort Status: Acute Attending/Attestation - Attestation I have personally seen and examined this patient.: Yes I have fully participated in the care of the patient.: Yes I have reviewed all pertinent clinical information: Yes Notes (Text): 12/23/16 07:13 hematuria light not on xarelto with hematuria suggest urology and neuro workup will rate control echo
--- NOTE | 2016-11-18 19:51 | CP.PCM.PN ---
<Justin Kramer - Last Filed: 11/18/16 19:47> Subjective - Date & Time of Evaluation Date of Evaluation: 11/18/16 Time of Evaluation: 14:30 - Subjective Subjective: PGY-[address] Arana's Service: Patient seen and examined at bedside. Resting comfortably, in NAD. He does continue to endorse a persistent headache, same in character and severity from yesterday. Patient also admits to experiencing 2 episodes of hematuria last night and 1 episode this morning. He says there are no clots. He says this is the first time he's had hematuria. He also endorses feelings of generalized weakness, lightheadedness, lethargy, mild suprapubic pain and mild left lower back pain. Denies any chest pain, palpitations, SOB, n/v/d, dysuria, BM changes.. Objective - Vital Signs/Intake and Output Vital Signs (last 24 hours): Temp Pulse Resp BP Pulse Ox 98.0 F 63 20 132/75 97 11/18/16 16:00 11/18/16 18:03 11/18/16 18:03 11/18/16 18:03 11/18/16 16:00 - Medications Medications: Current Medications Albuterol/Ipratropium (Duoneb 3 Mg/0.5 Mg (3 Ml) Ud) 3 ml INH RQ6 [facility] Last Admin: 11/18/16 19:33 Dose: 3 ml Alprazolam (Xanax) 0.5 mg PO HS [facility] Aspirin (Aspirin Chewable) 81 mg PO DAILY [facility] Last Admin: 11/18/16 09:30 Dose: 81 mg Bupropion HCl (Wellbutrin Xl) 150 mg PO DAILY [facility] Last Admin: 11/18/16 09:30 Dose: 150 mg Digoxin (Lanoxin) 0.125 mg PO DAILY@1400 [facility] Last Admin: 11/18/16 14:06 Dose: 0.125 mg Diltiazem HCl (Cardizem) 30 mg PO QID [facility] Last Admin: 11/18/16 17:58 Dose: 30 mg Heparin Sodium (Porcine) (Heparin) 5,000 units SC Q12 [facility] Metoprolol Tartrate (Lopressor) 25 mg PO BID [facility] Last Admin: 11/18/16 18:02 Dose: 25 mg Morphine Sulfate (Morphine Extended Release Tab) 15 mg PO BID [facility] Last Admin: 11/18/16 17:56 Dose: 15 mg Pantoprazole Sodium (Protonix Ec Tab) 40 mg PO DAILY [facility] Last Admin: 11/18/16 09:30 Dose: 40 mg Paroxetine HCl (Paxil) 40 mg PO DAILY [facility] Last Admin: 11/18/16 09:36 Dose: 40 mg Rivaroxaban (Xarelto) 20 mg PO DAILY [facility] Last Admin: 11/18/16 09:30 Dose: 20 mg Rosuvastatin Calcium (Crestor) 5 mg PO HS [facility] Last Admin: 11/17/16 21:53 Dose: 5 mg Fluticasone/Salmeterol (Advair Diskus 250/50) 1 puff IH RQD [facility] Last Admin: 11/17/16 20:55 Dose: Not Given - Labs Labs: 11/18/16 08:23 11/18/16 08:23 PT 11.8 SECONDS (9.7-12.2) 11/15/16 14:17 INR 1.0 11/15/16 14:17 APTT 31 SECONDS (21-34) 11/15/16 14:17 - Constitutional Appears: No Acute Distress - Head Exam Head Exam: NORMAL INSPECTION - Eye Exam Eye Exam: Normal appearance - ENT Exam ENT Exam: Mucous Membranes Moist - Neck Exam Neck Exam: Normal Inspection - Respiratory Exam Respiratory Exam: Clear to Ausculation Bilateral, NORMAL BREATHING PATTERN - Cardiovascular Exam Cardiovascular Exam: Irregular Rhythm. absent: Murmur - GI/Abdominal Exam GI & Abdominal Exam: Soft, Normal Bowel Sounds Additional comments: No TTP in abdomen. (+) Small bruise, 2cm in LLQ - Rectal Exam Rectal Exam: Deferred. absent: Bloody Stool - Extremities Exam Extremities Exam: absent: Calf Tenderness, Tenderness - Neurological Exam Additional comments: FTN is deficient on the right as compared with the left. Decreased sensation to touch on the right leg and arm as compared to the left. No slurred speech noted No significant motor weakness noted - Psychiatric Exam Psychiatric exam: Normal Affect, Normal Mood - Skin Skin Exam: Dry, Intact, Normal Color, Warm Assessment and Plan - Assessment and Plan (Free Text) Assessment: 1.) Hematuria 11/18: Possibly 2/2 to xaralto 20mg po daily, aspirin 81mg po daily, and heparin 5000u sc q8. Xaralo has been discontinued for now. Pt will be kept on aspirin and heparin. Cardiology, Dr Barlow, has been consulted regarding anticoagulation options for this patient with a hx of afib. A renal ultrasound has been ordered. A urine culture has been ordered. 2.) Chest Pain * Observe to telemetry * In the ED, Aspirin 325mg POx1 * Will start Aspirin 81mg PO 1x daily * c/w Metoprolol Tartrate 25mg daily HOLD SBP<100 and HR<60 * c/w Cardizem 30mg 4x aday HOLD SBP<100 and HR<60 * c/w digoxin .125mg po daily * Troponin negative x3 * ECHO (06/06/16): Left atrial enlarged, right atrium dilated, LV:60% * HgA1C 5.6 on last admission in 09/2016 * Lipid Panel wnl 5.6 on last admission in 09/2016 * TSH wnl 5.6 on last admission in 09/2016 3.) Slurred Speech 11/16: Dr Cabrales, neurology,given headache and abnormal neuro exam recommended MRI of brain w/out contrast and MRA of head/neck. hx of TIA. 11/16: Neck MRA: Widely patent bilateral common and internal carotid arteries with no significant stenosis appreciated. 11/16: Head MRA: No evidence of occlusion or definite significant stenosis. 11/16: Brain MRI: Stable age related neuro degenerate change identified without acute is over infarction mass-effect hydrocephalus or cortical edema. No suspicious extra-axial collection is encountered in the interval. Follow- up CT or MRI are available as indicated. CT head -> no intracranial hemorrhage. scattered nonspecific white matter changes. carotid dopplers ordered neurology consulted, Dr Cabrales. Follow up recommendations. 3.) Headache 11/18: Will give xanax at bedtime as this is when patient takes it at home. 11/16: Per Dr Cabrales, neurology, will treat the headache with depakote 500 mg IV push, magnesium sulfate 2 grams IV and decadron 10 mg IV ONCE.4 5.) Hematochezia 11/17: Pt c/o of blood in stool today. Will f/u on FOBT. 6.) Hematuria 11/17: Pt c/o of red urine today. Ordered digoxin level. Ordered UA. 7.) Chronic Pain * History of spinal stenosis, extensive right rotator cuff tear * Start Percocet 1 tab 5/325 q6h PRN pain 8.) History of PTSD, Anxiety, Bipolar, Depression * c/w Paxil 40mg PO daily * c/w Wellbutrin 150mg daily * c/w xanax 0.5mg PO daily as needed 9.) Hyperlipidemia * c/w Crestor 5mg POqHS * Lipid Panel in AM 10.) History of COPD * Patient is not in active exacerbation * Duonebs [id number] PRN for shortness of breath * Advair 250/50 1 puff q12 hours 11.) History of Atrial Fibrillation * c/w Metoprolol Tartrate 25mg daily Hold SBP<100 and HR<60 * c/w Cardizem 30mg QID Hold SBP<100 and HR<60 * restarted xarelto 20mg po daily, patient has been off Xarelto due possible surgery for rotator cuff * HASBLED:4 * [id number]:3 * c/w Aspirin 81mg PO daily 12.) History of Hepatitis C * not on current therapy at this time 13.) Prophylactic Treatment * SCDS bilateral * protonix 40mg po daily * heparin 5000u sc q8 <Adolfo Arana M - Last Filed: 11/19/16 17:52> Objective - Vital Signs/Intake and Output Vital Signs (last 24 hours): Temp Pulse Resp BP Pulse Ox 97.9 F 76 20 109/67 97 11/19/16 15:33 11/19/16 15:33 11/19/16 15:33 11/19/16 15:33 11/19/16 15:33 Intake and Output: 11/19/16 11/19/16 06:59 18:59 Intake Total 720 Balance 720 - Medications Medications: Current Medications Albuterol/Ipratropium (Duoneb 3 Mg/0.5 Mg (3 Ml) Ud) 3 ml INH RQ6 [facility] Last Admin: 11/19/16 13:09 Dose: 3 ml Alprazolam (Xanax) 0.5 mg PO HS [facility] Last Admin: 11/18/16 21:39 Dose: 0.5 mg Aspirin (Aspirin Chewable) 81 mg PO DAILY [facility] Last Admin: 11/19/16 09:23 Dose: 81 mg Bupropion HCl (Wellbutrin Xl) 150 mg PO DAILY [facility] Last Admin: 11/19/16 09:24 Dose: 150 mg Digoxin (Lanoxin) 0.125 mg PO DAILY@1400 [facility] Last Admin: 11/19/16 14:20 Dose: 0.125 mg Diltiazem HCl (Cardizem) 30 mg PO QID [facility] Last Admin: 11/19/16 14:20 Dose: 30 mg Heparin Sodium (Porcine) (Heparin) 5,000 units SC Q12 [facility] Last Admin: 11/19/16 10:06 Dose: Not Given Metoprolol Tartrate (Lopressor) 25 mg PO BID [facility] Last Admin: 11/19/16 09:23 Dose: 25 mg Morphine Sulfate (Morphine Extended Release Tab) 15 mg PO BID [facility] Last Admin: 11/19/16 09:24 Dose: 15 mg Oxycodone/Acetaminophen (Percocet 5/325 Mg Tab) 1 tab PO Q6H PRN PRN Reason: Pain, moderate (4-7) Stop: 11/22/16 05:47 Last Admin: 11/19/16 12:55 Dose: 1 tab Pantoprazole Sodium (Protonix Ec Tab) 40 mg PO DAILY [facility] Last Admin: 11/19/16 09:23 Dose: 40 mg Paroxetine HCl (Paxil) 40 mg PO DAILY [facility] Last Admin: 11/19/16 09:23 Dose: 40 mg Rivaroxaban (Xarelto) 20 mg PO DAILY [facility] Last Admin: 11/18/16 09:30 Dose: 20 mg Rosuvastatin Calcium (Crestor) 5 mg PO HS [facility] Last Admin: 11/18/16 21:39 Dose: 5 mg Fluticasone/Salmeterol (Advair Diskus 250/50) 1 puff IH RQD [facility] Last Admin: 11/19/16 07:30 Dose: 1 puff - Labs Labs: 11/19/16 07:05 11/19/16 07:05 PT 11.8 SECONDS (9.7-12.2) 11/15/16 14:17 INR 1.0 11/15/16 14:17 APTT 31 SECONDS (21-34) 11/15/16 14:17 Attending/Attestation - Attestation I have personally seen and examined this patient.: Yes I have fully participated in the care of the patient.: Yes I have reviewed all pertinent clinical information, including history, physical exam and plan: Yes Notes (Text): 11/19/16 17:52 Patient was seen and examined at bedside with the resident Patient to has the hematuria. We will stop the anticoagulation We'll request cardiology evaluation for the patient We'll follow up recommendations I discussed the plan of care with the resident and agree with the history and physical and assessment/plan by the resident.
[2016-11-18] MEDS: Fluticasone-Salmeterol 250-50mcg Diskus IH SCH (19:57)
[2016-11-19] MEDS: Albuterol-Ipratrop 3 mg / 0.5 (3 ml) UD INH SCH ×4 (01:25→19:31)
[2016-11-19] MEDS: Oxycodone/Acetaminophen 5/325 mg Tab PO PRN ×3 (06:42→22:38)
[2016-11-19 07:22] LABS: BASO % 0.3 % (0.0-2.0); EOS # 0.1 K/uL (0.0-0.7); EOS % 1.2 % (0.0-4.0); HEMATOCRIT 39.2 % (35.0-51.0); LYMPH % 36.8 % (20.0-40.0); MEAN CELL VOLUME 92.2 fL (80.0-94.0); MEAN CORPUSCULAR HEMOGLOBIN 30.2 pg (27.0-31.0); MEAN CORPUSCULAR HGB CONC 32.7 g/dL (33.0-37.0); MEAN PLATELET VOLUME 8.1 fL (7.2-11.7); MONO # 0.6 K/uL (0.0-0.8); MONO % 10.3 % (0.0-10.0); NRBC % 0.1 % (0.0-2.0); RED CELL DISTRIBUTION WIDTH 13.5 % (11.5-14.5); WHITE BLOOD COUNT 5.5 K/uL (4.8-10.8)
[2016-11-19] MEDS: Fluticasone-Salmeterol 250-50mcg Diskus IH SCH (07:30)
[2016-11-19 07:43] LABS: CHLORIDE 103 mmol/L (98-107); SODIUM 139 mmol/L (132-148)
[2016-11-19 07:44] LABS: POTASSIUM 3.9 mmol/L (3.6-5.2)
[2016-11-19 07:45] LABS: GFR AFRICAN-AMERICAN > 60
[2016-11-19 07:46] LABS: ALB/GLOB RATIO 1.2 (1.0-2.1); ALKALINE PHOSPHATASE 66 U/L (38-126); ALT/SGPT 55 U/L (21-72); AST/SGOT 39 U/L (17-59); BILIRUBIN,TOTAL 0.6 mg/dL (0.2-1.3); BLOOD UREA NITROGEN 10 mg/dL (9-20); CALCIUM 8.8 mg/dl (8.6-10.4); CARBON DIOXIDE 26 mmol/L (22-30); GLUCOSE,RANDOM 88 mg/dL (75-110); PHOSPHOROUS 3.5 mg/dL (2.5-4.5); TOTAL PROTEIN 6.8 g/dL (6.3-8.3)
[2016-11-19 07:47] LABS: MAGNESIUM 1.8 mg/dL (1.6-2.3)
[2016-11-19] MEDS: Pantoprazole 40 mg EC Tab PO SCH (09:23)
[2016-11-19] MEDS: buPROPion 150 mg/24 Hours XL Tab PO SCH (09:24)
[2016-11-19] MEDS: Morphine 15 mg SR Tab PO SCH ×2 (09:24→18:20)
--- NOTE | 2016-11-19 10:20 | US ---
HISTORY: hematuria COMPARISON: None. TECHNIQUE: Sonographic evaluation of the abdomen. FINDINGS: LIVER: Measures 17.3 cm. Normal echogenicity of the liver parenchyma. No mass. No intrahepatic bile duct dilatation. GALLBLADDER: Unremarkable. No gallstones. COMMON BILE DUCT: Measures 3 mm. No stones. No dilatation. PANCREAS: Unremarkable as visualized. No mass. No ductal dilatation. RIGHT KIDNEY: Measures 11.6cm. Normal echogenicity. Multiple small nonobstructing calculi. No mass or hydronephrosis. LEFT KIDNEY: Measures 11.7cm. Normal echogenicity. Multiple small nonobstructing calculi, largest 6 mm in the upper pole. No mass or hydronephrosis. SPLEEN: Normal in size and contour. No mass. AORTA: No aneurysmal dilatation. IVC: Unremarkable. OTHER FINDINGS: None. IMPRESSION: Multiple small bilateral nonobstructing renal calculi. Otherwise unremarkable examination.
--- NOTE | 2016-11-19 11:12 | CP.PCM.PN ---
<Jose Horton S - Last Filed: 11/22/16 07:12> Subjective - Date & Time of Evaluation Date of Evaluation: 11/19/16 Time of Evaluation: 11:09 - Subjective Subjective: PGY2 Progress note- Dr. Barlow Pt seen and examined at bedside. He appears comfortable, calm, in no acute distress. He explains that he continues to feel chest discomfort and palpitations. He states that he has intermittent shortness of breath. Additionally he reports that he has been passing blood tinged urine and has brought this to the attention of the medicine team who is investigating the cause. He complains of lower back pain and dysuria. He denies fever, chill, nausea, vomiting. Objective - Vital Signs/Intake and Output Vital Signs (last 24 hours): Temp Pulse Resp BP Pulse Ox 97.8 F 71 20 126/72 95 11/19/16 07:00 11/19/16 07:00 11/19/16 07:00 11/19/16 09:23 11/19/16 07:00 - Medications Medications: Current Medications Albuterol/Ipratropium (Duoneb 3 Mg/0.5 Mg (3 Ml) Ud) 3 ml INH RQ6 [facility] Last Admin: 11/19/16 07:30 Dose: 3 ml Alprazolam (Xanax) 0.5 mg PO HS [facility] Last Admin: 11/18/16 21:39 Dose: 0.5 mg Aspirin (Aspirin Chewable) 81 mg PO DAILY [facility] Last Admin: 11/19/16 09:23 Dose: 81 mg Bupropion HCl (Wellbutrin Xl) 150 mg PO DAILY [facility] Last Admin: 11/19/16 09:24 Dose: 150 mg Digoxin (Lanoxin) 0.125 mg PO DAILY@1400 [facility] Last Admin: 11/18/16 14:06 Dose: 0.125 mg Diltiazem HCl (Cardizem) 30 mg PO QID [facility] Last Admin: 11/19/16 09:23 Dose: 30 mg Heparin Sodium (Porcine) (Heparin) 5,000 units SC Q12 [facility] Last Admin: 11/19/16 10:06 Dose: Not Given Metoprolol Tartrate (Lopressor) 25 mg PO BID [facility] Last Admin: 11/19/16 09:23 Dose: 25 mg Morphine Sulfate (Morphine Extended Release Tab) 15 mg PO BID [facility] Last Admin: 11/19/16 09:24 Dose: 15 mg Oxycodone/Acetaminophen (Percocet 5/325 Mg Tab) 1 tab PO Q6H PRN PRN Reason: Pain, moderate (4-7) Stop: 11/22/16 05:47 Last Admin: 11/19/16 06:42 Dose: 1 tab Pantoprazole Sodium (Protonix Ec Tab) 40 mg PO DAILY [facility] Last Admin: 11/19/16 09:23 Dose: 40 mg Paroxetine HCl (Paxil) 40 mg PO DAILY [facility] Last Admin: 11/19/16 09:23 Dose: 40 mg Rivaroxaban (Xarelto) 20 mg PO DAILY [facility] Last Admin: 11/18/16 09:30 Dose: 20 mg Rosuvastatin Calcium (Crestor) 5 mg PO HS [facility] Last Admin: 11/18/16 21:39 Dose: 5 mg Fluticasone/Salmeterol (Advair Diskus 250/50) 1 puff IH RQD [facility] Last Admin: 11/19/16 07:30 Dose: 1 puff - Labs Labs: 11/19/16 07:05 11/19/16 07:05 PT 11.8 SECONDS (9.7-12.2) 11/15/16 14:17 INR 1.0 11/15/16 14:17 APTT 31 SECONDS (21-34) 11/15/16 14:17 - Constitutional Appears: No Acute Distress - Head Exam Head Exam: ATRAUMATIC - Eye Exam Eye Exam: EOMI, Normal appearance - ENT Exam ENT Exam: Mucous Membranes Moist - Respiratory Exam Respiratory Exam: Clear to Ausculation Bilateral, NORMAL BREATHING PATTERN. absent: Chest Wall Tenderness, Rhonchi, Wheezes, Respiratory Distress - Cardiovascular Exam Cardiovascular Exam: REGULAR RHYTHM, +S1, +S2. absent: Gallop, Rubs - GI/Abdominal Exam GI & Abdominal Exam: Soft. absent: Distended, Tenderness - Extremities Exam Extremities Exam: Normal Inspection. absent: Pedal Edema - Back Exam Back Exam: absent: CVA tenderness (L) - Neurological Exam Neurological Exam: Alert, Awake, Oriented x3 Assessment and Plan - Assessment and Plan (Free Text) Assessment: 61 y/o male with hx of CAD, A fib, [place], TIA presenting with headache and chest pain and slurred speech Plan: Angina- R/O ACS -continue medications asa 81mg PO daily digoxin 125mcg PO daily cardizem 30mg po qid lopressor 25mg PO bid crestor 5mg PO daily heparin 5k subq q12hrs EKG: Afib Echo: borderline LVH; no other abnormalities identified Trops: negative x2 Afib Currently rate controlled continue with medications as detailed above Continue with Xarelto 20mg PO Daily <Kristy Barlow - Last Filed: 12/23/16 07:18> Objective - Vital Signs/Intake and Output Vital Signs (last 24 hours): Temp Pulse Resp BP Pulse Ox 97.6 F 73 18 98/61 L 95 11/26/16 16:00 11/26/16 16:00 11/26/16 16:00 11/26/16 16:00 11/26/16 16:00 - Labs Labs: 11/26/16 06:42 11/26/16 06:38 PT 11.8 SECONDS (9.7-12.2) 11/15/16 14:17 INR 1.0 11/15/16 14:17 APTT 31 SECONDS (21-34) 11/15/16 14:17 Assessment and Plan (1) Chest discomfort Status: Acute Attending/Attestation - Attestation I have personally seen and examined this patient.: Yes I have fully participated in the care of the patient.: Yes I have reviewed all pertinent clinical information, including history, physical exam and plan: Yes Notes (Text): 12/23/16 07:17 no venticular tachycardia continue rate control nl ef negative troponin outpt stress
[2016-11-19] MEDS: Digoxin 125 mcg (0.125 mg) Tab PO SCH (14:20)
--- NOTE | 2016-11-19 20:50 | CP.PCM.PN ---
<Justin Kramer - Last Filed: 11/19/16 20:47> Subjective - Date & Time of Evaluation Date of Evaluation: 11/19/16 Time of Evaluation: 10:00 - Subjective Subjective: PGY-[address] Arana's Service: Patient seen at bedside. Resting comfortably and in NAD. He admits to persistent headache, unchanged from baseline and continued difficulty achieving adequate sleep. He reports two episodes of hematuria last night with now new onset of dysuria and left-sided flank pain that began yesterday. Denies any changes to the stool, or feelings of chest pain, SOB, palpitations, abdominal pain, n/v/d, constipation, dizziness, lightheadedness, leg pain or any other complaints at this time. Objective - Vital Signs/Intake and Output Vital Signs (last 24 hours): Temp Pulse Resp BP Pulse Ox 97.9 F 76 20 109/67 97 11/19/16 15:33 11/19/16 15:33 11/19/16 15:33 11/19/16 15:33 11/19/16 15:33 Intake and Output: 11/19/16 11/20/16 18:59 06:59 Intake Total 720 Balance 720 - Medications Medications: Current Medications Albuterol/Ipratropium (Duoneb 3 Mg/0.5 Mg (3 Ml) Ud) 3 ml INH RQ6 [facility] Last Admin: 11/19/16 19:31 Dose: 3 ml Alprazolam (Xanax) 0.5 mg PO HS [facility] Last Admin: 11/18/16 21:39 Dose: 0.5 mg Aspirin (Aspirin Chewable) 81 mg PO DAILY [facility] Last Admin: 11/19/16 09:23 Dose: 81 mg Bupropion HCl (Wellbutrin Xl) 150 mg PO DAILY [facility] Last Admin: 11/19/16 09:24 Dose: 150 mg Digoxin (Lanoxin) 0.125 mg PO DAILY@1400 [facility] Last Admin: 11/19/16 14:20 Dose: 0.125 mg Diltiazem HCl (Cardizem) 30 mg PO QID [facility] Last Admin: 11/19/16 18:16 Dose: 30 mg Heparin Sodium (Porcine) (Heparin) 5,000 units SC Q12 [facility] Last Admin: 11/19/16 10:06 Dose: Not Given Metoprolol Tartrate (Lopressor) 25 mg PO BID [facility] Last Admin: 11/19/16 09:23 Dose: 25 mg Morphine Sulfate (Morphine Extended Release Tab) 15 mg PO BID [facility] Last Admin: 11/19/16 18:20 Dose: 15 mg Oxycodone/Acetaminophen (Percocet 5/325 Mg Tab) 1 tab PO Q6H PRN PRN Reason: Pain, moderate (4-7) Stop: 11/22/16 05:47 Last Admin: 11/19/16 12:55 Dose: 1 tab Pantoprazole Sodium (Protonix Ec Tab) 40 mg PO DAILY [facility] Last Admin: 11/19/16 09:23 Dose: 40 mg Paroxetine HCl (Paxil) 40 mg PO DAILY [facility] Last Admin: 11/19/16 09:23 Dose: 40 mg Rivaroxaban (Xarelto) 20 mg PO DAILY [facility] Last Admin: 11/18/16 09:30 Dose: 20 mg Rosuvastatin Calcium (Crestor) 5 mg PO HS [facility] Last Admin: 11/18/16 21:39 Dose: 5 mg Fluticasone/Salmeterol (Advair Diskus 250/50) 1 puff IH RQD [facility] Last Admin: 11/19/16 07:30 Dose: 1 puff - Labs Labs: 11/19/16 07:05 11/19/16 07:05 PT 11.8 SECONDS (9.7-12.2) 11/15/16 14:17 INR 1.0 11/15/16 14:17 APTT 31 SECONDS (21-34) 11/15/16 14:17 - Constitutional Appears: Well, No Acute Distress - Head Exam Head Exam: NORMAL INSPECTION - Eye Exam Eye Exam: Normal appearance - ENT Exam ENT Exam: Mucous Membranes Moist - Neck Exam Neck Exam: Tenderness Additional comments: (+) Cervical tenderness overlying C6-7 - Respiratory Exam Respiratory Exam: Clear to Ausculation Bilateral, NORMAL BREATHING PATTERN - Cardiovascular Exam Cardiovascular Exam: REGULAR RHYTHM, +S1, +S2. absent: Murmur - GI/Abdominal Exam GI & Abdominal Exam: Soft, Normal Bowel Sounds. absent: Tenderness - Rectal Exam Rectal Exam: Deferred - Extremities Exam Extremities Exam: Full ROM - Back Exam Back Exam: tenderness Additional comments: (+) L flank tenderness - Neurological Exam Neurological Exam: CN II-XII Intact Additional comments: (+) Resting tremor of both hands when arms fully extending. (-) Rhombergs. (-) [id number]; although notably slow reaction time. (+) R pronator drift; unchanged from prior exam. 09/03 strength b/l in all extremities. - Psychiatric Exam Psychiatric exam: Normal Affect, Normal Mood - Skin Skin Exam: Dry, Intact, Normal Color, Warm Assessment and Plan - Assessment and Plan (Free Text) Assessment: 1.) Hematuria 11/19: Abdomen/Bladder U/S: Multiple small bilateral nonobstructing renal calculi. Otherwise unremarkable examination. Xaralto still on hold. 11/19: Urology consulted, Dr Pisano. 11/18: Possibly 2/ to xaralto 20mg po daily, aspirin 81mg po daily, and heparin 5000u sc q8. Xaralo has been discontinued for now. Pt will be kept on aspirin and heparin. Cardiology, Dr Barlow, has been consulted regarding anticoagulation options for this patient with a hx of afib. A renal ultrasound has been ordered. A urine culture has been ordered. 2.) Chest Pain * Observe to telemetry * In the ED, Aspirin 325mg POx1 * Will start Aspirin 81mg PO 1x daily * c/w Metoprolol Tartrate 25mg daily HOLD SBP<100 and HR<60 * c/w Cardizem 30mg 4x aday HOLD SBP<100 and HR<60 * c/w digoxin .125mg po daily * Troponin negative x3 * ECHO (06/06/16): Left atrial enlarged, right atrium dilated, LV:60% * HgA1C 5.6 on last admission in 09/2016 * Lipid Panel wnl 5.6 on last admission in 09/2016 * TSH wnl 5.6 on last admission in 09/2016 3.) Slurred Speech 11/16: Dr Cabrales, neurology,given headache and abnormal neuro exam recommended MRI of brain w/out contrast and MRA of head/neck. hx of TIA. 11/16: Neck MRA: Widely patent bilateral common and internal carotid arteries with no significant stenosis appreciated. 11/16: Head MRA: No evidence of occlusion or definite significant stenosis. 11/16: Brain MRI: Stable age related neuro degenerate change identified without acute is over infarction mass-effect hydrocephalus or cortical edema. No suspicious extra-axial collection is encountered in the interval. Follow- up CT or MRI are available as indicated. CT head -> no intracranial hemorrhage. scattered nonspecific white matter changes. carotid dopplers ordered neurology consulted, Dr Cabrales. Follow up recommendations. 3.) Headache 11/18: Will give xanax at bedtime as this is when patient takes it at home. 11/16: Per Dr Cabrales, neurology, will treat the headache with depakote 500 mg IV push, magnesium sulfate 2 grams IV and decadron 10 mg IV ONCE.4 5.) Hematochezia 11/18: FOBT negative 11/17: Pt c/o of blood in stool today. Will f/u on FOBT. 6.) Chronic Pain * History of spinal stenosis, extensive right rotator cuff tear * Start Percocet 1 tab 5/325 q6h PRN pain 7.) History of PTSD, Anxiety, Bipolar, Depression * c/w Paxil 40mg PO daily * c/w Wellbutrin 150mg daily * c/w xanax 0.5mg PO daily as needed 8.) Hyperlipidemia * c/w Crestor 5mg POqHS * Lipid Panel in AM 9.) History of COPD * Patient is not in active exacerbation * Duonebs q2jmimh PRN for shortness of breath * Advair 250/50 1 puff q12 hours 10.) History of Atrial Fibrillation * c/w Metoprolol Tartrate 25mg daily Hold SBP<100 and HR<60 * c/w Cardizem 30mg QID Hold SBP<100 and HR<60 * restarted xarelto 20mg po daily, patient has been off Xarelto due possible surgery for rotator cuff * HASBLED:4 * [id number] * c/w Aspirin 81mg PO daily 11.) History of Hepatitis C * not on current therapy at this time 12.) Prophylactic Treatment * SCDS bilateral * protonix 40mg po daily * heparin 5000u sc q8 <Adolfo Arana - Last Filed: 11/20/16 15:36> Objective - Vital Signs/Intake and Output Vital Signs (last 24 hours): Temp Pulse Resp BP Pulse Ox 98.3 F 68 20 107/62 95 11/20/16 08:00 11/20/16 14:50 11/20/16 08:00 11/20/16 14:50 11/20/16 08:00 - Medications Medications: Current Medications Albuterol/Ipratropium (Duoneb 3 Mg/0.5 Mg (3 Ml) Ud) 3 ml INH RQ6 [facility] Last Admin: 11/20/16 13:03 Dose: 3 ml Alprazolam (Xanax) 0.5 mg PO HS [facility] Last Admin: 11/19/16 22:39 Dose: 0.5 mg Aspirin (Aspirin Chewable) 81 mg PO DAILY [facility] Last Admin: 11/20/16 10:40 Dose: 81 mg Bupropion HCl (Wellbutrin Xl) 150 mg PO DAILY [facility] Last Admin: 11/20/16 10:41 Dose: 150 mg Digoxin (Lanoxin) 0.125 mg PO DAILY@1400 [facility] Last Admin: 11/20/16 14:51 Dose: 0.125 mg Diltiazem HCl (Cardizem) 30 mg PO QID [facility] Last Admin: 11/20/16 14:51 Dose: 30 mg Metoprolol Tartrate (Lopressor) 25 mg PO BID [facility] Last Admin: 11/20/16 10:41 Dose: 25 mg Morphine Sulfate (Morphine Extended Release Tab) 15 mg PO BID [facility] Last Admin: 11/20/16 10:38 Dose: 15 mg Oxycodone/Acetaminophen (Percocet 5/325 Mg Tab) 1 tab PO Q6H PRN PRN Reason: Pain, moderate (4-7) Stop: 11/22/16 05:47 Last Admin: 11/20/16 15:02 Dose: 1 tab Pantoprazole Sodium (Protonix Ec Tab) 40 mg PO DAILY [facility] Last Admin: 11/20/16 10:41 Dose: 40 mg Paroxetine HCl (Paxil) 40 mg PO DAILY [facility] Last Admin: 11/20/16 10:41 Dose: 40 mg Rivaroxaban (Xarelto) 20 mg PO DAILY [facility] Last Admin: 11/18/16 09:30 Dose: 20 mg Rosuvastatin Calcium (Crestor) 5 mg PO HS [facility] Last Admin: 11/19/16 22:36 Dose: 5 mg Fluticasone/Salmeterol (Advair Diskus 250/50) 1 puff IH RQD [facility] Last Admin: 11/20/16 07:45 Dose: 1 puff - Labs Labs: 11/20/16 07:48 11/20/16 07:48 PT 11.8 SECONDS (9.7-12.2) 11/15/16 14:17 INR 1.0 11/15/16 14:17 APTT 31 SECONDS (21-34) 11/15/16 14:17 Attending/Attestation - Attestation I have personally seen and examined this patient.: Yes I have fully participated in the care of the patient.: Yes I have reviewed all pertinent clinical information, including history, physical exam and plan: Yes Notes (Text): 11/20/16 15:35 Patient was seen and examined at bedside with the resident Patient complains of bilateral lower abdominal pain Patient to continues to have hematuria We will hold anticoagulation We have requested urology evaluation for the patient I discussed the plan of care with the resident and agree with the history and physical and assessment/plan by the resident.
[2016-11-20] MEDS: Albuterol-Ipratrop 3 mg / 0.5 (3 ml) UD INH SCH ×3 (01:16→13:03)
[2016-11-20] MEDS: Oxycodone/Acetaminophen 5/325 mg Tab PO PRN ×3 (06:00→21:22)
--- NOTE | 2016-11-20 07:11 | CP.PCM.PN ---
Subjective - Date & Time of Evaluation Date of Evaluation: 11/20/16 Time of Evaluation: 07:11 - Subjective Subjective: pt tolerating PO in good spirits girlfriend visiting Objective - Vital Signs/Intake and Output Vital Signs (last 24 hours): Temp Pulse Resp BP Pulse Ox 98.2 F 68 20 108/67 98 11/19/16 23:55 11/19/16 23:55 11/19/16 23:55 11/19/16 23:55 11/19/16 23:55 - Medications Medications: Current Medications Albuterol/Ipratropium (Duoneb 3 Mg/0.5 Mg (3 Ml) Ud) 3 ml INH RQ6 [facility] Last Admin: 11/20/16 01:16 Dose: Not Given Alprazolam (Xanax) 0.5 mg PO HS [facility] Last Admin: 11/19/16 22:39 Dose: 0.5 mg Aspirin (Aspirin Chewable) 81 mg PO DAILY [facility] Last Admin: 11/19/16 09:23 Dose: 81 mg Bupropion HCl (Wellbutrin Xl) 150 mg PO DAILY [facility] Last Admin: 11/19/16 09:24 Dose: 150 mg Digoxin (Lanoxin) 0.125 mg PO DAILY@1400 [facility] Last Admin: 11/19/16 14:20 Dose: 0.125 mg Diltiazem HCl (Cardizem) 30 mg PO QID [facility] Last Admin: 11/19/16 22:36 Dose: 30 mg Heparin Sodium (Porcine) (Heparin) 5,000 units SC Q12 [facility] Last Admin: 11/19/16 22:37 Dose: 5,000 units Metoprolol Tartrate (Lopressor) 25 mg PO BID [facility] Last Admin: 11/19/16 22:37 Dose: 25 mg Morphine Sulfate (Morphine Extended Release Tab) 15 mg PO BID [facility] Last Admin: 11/19/16 18:20 Dose: 15 mg Oxycodone/Acetaminophen (Percocet 5/325 Mg Tab) 1 tab PO Q6H PRN PRN Reason: Pain, moderate (4-7) Stop: 11/22/16 05:47 Last Admin: 11/20/16 06:00 Dose: 1 tab Pantoprazole Sodium (Protonix Ec Tab) 40 mg PO DAILY [facility] Last Admin: 11/19/16 09:23 Dose: 40 mg Paroxetine HCl (Paxil) 40 mg PO DAILY [facility] Last Admin: 11/19/16 09:23 Dose: 40 mg Rivaroxaban (Xarelto) 20 mg PO DAILY [facility] Last Admin: 11/18/16 09:30 Dose: 20 mg Rosuvastatin Calcium (Crestor) 5 mg PO HS [facility] Last Admin: 11/19/16 22:36 Dose: 5 mg Fluticasone/Salmeterol (Advair Diskus 250/50) 1 puff IH RQD [facility] Last Admin: 11/19/16 07:30 Dose: 1 puff - Labs Labs: 11/19/16 07:05 11/19/16 07:05 PT 11.8 SECONDS (9.7-12.2) 11/15/16 14:17 INR 1.0 11/15/16 14:17 APTT 31 SECONDS (21-34) 11/15/16 14:17 - Constitutional Appears: Well - Head Exam Head Exam: ATRAUMATIC, NORMOCEPHALIC - Eye Exam Eye Exam: Normal appearance - ENT Exam ENT Exam: Mucous Membranes Moist - Respiratory Exam Respiratory Exam: Clear to Ausculation Bilateral, NORMAL BREATHING PATTERN - Cardiovascular Exam Cardiovascular Exam: +S1, +S2, Murmur - GI/Abdominal Exam GI & Abdominal Exam: Soft, Normal Bowel Sounds - Exam External exam: NORMAL EXTERNAL EXAM. absent: Erythema - Extremities Exam Extremities Exam: Normal Inspection. absent: Pedal Edema - Neurological Exam Neurological Exam: Alert, Awake - Psychiatric Exam Psychiatric exam: Normal Affect, Normal Mood - Skin Skin Exam: Normal Color, Warm Assessment and Plan (1) Chest discomfort Assessment & Plan: no chest disconfort rate controlled now with urology following cysto eval nl ef continue asa will add plavix when ok no ventriculat tachycardia negative troponin Status: Acute
[2016-11-20] MEDS: Fluticasone-Salmeterol 250-50mcg Diskus IH SCH (07:45)
[2016-11-20 08:01] LABS: BASO % 0.4 % (0.0-2.0); EOS # 0.2 K/uL (0.0-0.7); EOS % 2.8 % (0.0-4.0); HEMATOCRIT 38.8 % (35.0-51.0); LYMPH # 1.7 K/uL (1.0-4.3); LYMPH % 30.1 % (20.0-40.0); MEAN CORPUSCULAR HEMOGLOBIN 30.8 pg (27.0-31.0); MEAN CORPUSCULAR HGB CONC 33.4 g/dL (33.0-37.0); MEAN PLATELET VOLUME 7.6 fL (7.2-11.7); MONO # 0.7 K/uL (0.0-0.8); MONO % 12.1 % (0.0-10.0); RED CELL DISTRIBUTION WIDTH 13.2 % (11.5-14.5); WHITE BLOOD COUNT 5.7 K/uL (4.8-10.8)
[2016-11-20 08:02] LABS: CHLORIDE 101 mmol/L (98-107)
[2016-11-20 08:03] LABS: POTASSIUM 3.8 mmol/L (3.6-5.2); SODIUM 136 mmol/L (132-148)
[2016-11-20 08:05] LABS: ALB/GLOB RATIO 1.3 (1.0-2.1); ALKALINE PHOSPHATASE 73 U/L (38-126); AST/SGOT 51 U/L (17-59); BILIRUBIN,TOTAL 0.6 mg/dL (0.2-1.3); BLOOD UREA NITROGEN 9 mg/dL (9-20); CARBON DIOXIDE 26 mmol/L (22-30); GFR AFRICAN-AMERICAN > 60; TOTAL PROTEIN 6.8 g/dL (6.3-8.3)
[2016-11-20 08:06] LABS: ALT/SGPT 70 U/L (21-72); CALCIUM 8.9 mg/dl (8.6-10.4); GLUCOSE,RANDOM 87 mg/dL (75-110); MAGNESIUM 1.8 mg/dL (1.6-2.3); PHOSPHOROUS 3.4 mg/dL (2.5-4.5)
[2016-11-20] MEDS: Morphine 15 mg SR Tab PO SCH ×2 (10:38→18:10)
[2016-11-20] MEDS: buPROPion 150 mg/24 Hours XL Tab PO SCH (10:41)
[2016-11-20] MEDS: Pantoprazole 40 mg EC Tab PO SCH (10:41)
--- NOTE | 2016-11-20 12:57 | CP.PCM.PN ---
<Martine Serrano - Last Filed: 11/20/16 12:54> Subjective - Date & Time of Evaluation Date of Evaluation: 11/20/16 Time of Evaluation: 12:55 - Subjective Subjective: PGY2 progress note for Hospitalists Pt is seen and examined at bedside. Patient continued to complain of hematuria overnight and into this morning. He also c/o lower abdominal pain, lumbar back pain as well. Patient denies having any CP, SOB, N/V/D/C. Pt is tolerating diet. 12 point ROS are negative except for the above mentioned. Objective - Vital Signs/Intake and Output Vital Signs (last 24 hours): Temp Pulse Resp BP Pulse Ox 98.3 F 78 20 119/82 95 11/20/16 08:00 11/20/16 08:00 11/20/16 08:00 11/20/16 10:41 11/20/16 08:00 - Medications Medications: Current Medications Albuterol/Ipratropium (Duoneb 3 Mg/0.5 Mg (3 Ml) Ud) 3 ml INH RQ6 [facility] Last Admin: 11/20/16 07:45 Dose: 3 ml Alprazolam (Xanax) 0.5 mg PO HS [facility] Last Admin: 11/19/16 22:39 Dose: 0.5 mg Aspirin (Aspirin Chewable) 81 mg PO DAILY [facility] Last Admin: 11/20/16 10:40 Dose: 81 mg Bupropion HCl (Wellbutrin Xl) 150 mg PO DAILY [facility] Last Admin: 11/20/16 10:41 Dose: 150 mg Digoxin (Lanoxin) 0.125 mg PO DAILY@1400 [facility] Last Admin: 11/19/16 14:20 Dose: 0.125 mg Diltiazem HCl (Cardizem) 30 mg PO QID [facility] Last Admin: 11/20/16 12:15 Dose: 30 mg Metoprolol Tartrate (Lopressor) 25 mg PO BID [facility] Last Admin: 11/20/16 10:41 Dose: 25 mg Morphine Sulfate (Morphine Extended Release Tab) 15 mg PO BID [facility] Last Admin: 11/20/16 10:38 Dose: 15 mg Oxycodone/Acetaminophen (Percocet 5/325 Mg Tab) 1 tab PO Q6H PRN PRN Reason: Pain, moderate (4-7) Stop: 11/22/16 05:47 Last Admin: 11/20/16 06:00 Dose: 1 tab Pantoprazole Sodium (Protonix Ec Tab) 40 mg PO DAILY [facility] Last Admin: 11/20/16 10:41 Dose: 40 mg Paroxetine HCl (Paxil) 40 mg PO DAILY [facility] Last Admin: 11/20/16 10:41 Dose: 40 mg Rivaroxaban (Xarelto) 20 mg PO DAILY [facility] Last Admin: 11/18/16 09:30 Dose: 20 mg Rosuvastatin Calcium (Crestor) 5 mg PO HS [facility] Last Admin: 11/19/16 22:36 Dose: 5 mg Fluticasone/Salmeterol (Advair Diskus 250/50) 1 puff IH RQD [facility] Last Admin: 11/20/16 07:45 Dose: 1 puff - Labs Labs: 11/20/16 07:48 11/20/16 07:48 PT 11.8 SECONDS (9.7-12.2) 11/15/16 14:17 INR 1.0 11/15/16 14:17 APTT 31 SECONDS (21-34) 11/15/16 14:17 - Constitutional Appears: Non-toxic, No Acute Distress - Head Exam Head Exam: ATRAUMATIC - Eye Exam Eye Exam: EOMI - ENT Exam ENT Exam: Mucous Membranes Moist - Respiratory Exam Respiratory Exam: Clear to Ausculation Bilateral. absent: Accessory Muscle Use , Rales, Rhonchi, Wheezes, Respiratory Distress - Cardiovascular Exam Cardiovascular Exam: REGULAR RHYTHM, +S1, +S2. absent: Gallop, Rubs, Murmur - GI/Abdominal Exam GI & Abdominal Exam: Soft, Normal Bowel Sounds. absent: Distended, Firm, Guarding, Rigid, Tenderness, Organomegaly - Extremities Exam Extremities Exam: absent: Pedal Edema, Tenderness - Back Exam Back Exam: CVA tenderness (L), CVA tenderness (R). absent: paraspinal tenderness, vertebral tenderness - Neurological Exam Neurological Exam: Alert, Awake, Oriented x3 - Psychiatric Exam Psychiatric exam: Normal Affect, Normal Mood - Skin Skin Exam: Dry, Intact, Normal Color, Warm Assessment and Plan - Assessment and Plan (Free Text) Assessment: 1.) Hematuria Hgb remains steady at 13.0. Will continue to monitor Repeat urinalysis is sent- pending results Urine culture from 11/18 negative 11/19: Abdomen/Bladder U/S: Multiple small bilateral nonobstructing renal calculi. Otherwise unremarkable examination. Xaralto still on hold. 11/19: Urology consulted, Dr Pisano. 11/18: Possibly 2/2 to xaralto 20mg po daily, aspirin 81mg po daily, and heparin 5000u sc q8. Xaralo has been discontinued for now. Pt will be kept on aspirin and heparin. Cardiology, Dr Barlow, has been consulted regarding anticoagulation options for this patient with a hx of afib. A renal ultrasound has been ordered. A urine culture has been ordered. 2.) Chest Pain * Observe to telemetry * In the ED, Aspirin 325mg POx1 * Will start Aspirin 81mg PO 1x daily * c/w Metoprolol Tartrate 25mg daily HOLD SBP<100 and HR<60 * c/w Cardizem 30mg 4x aday HOLD SBP<100 and HR<60 * c/w digoxin .125mg po daily * Troponin negative x3 * ECHO (06/06/16): Left atrial enlarged, right atrium dilated, LV:60% * HgA1C 5.6 on last admission in 09/2016 * Lipid Panel wnl 5.6 on last admission in 09/2016 * TSH wnl 5.6 on last admission in 09/2016 3.) Slurred Speech Resolved 11/16: Dr Cabrales, neurology,given headache and abnormal neuro exam recommended MRI of brain w/out contrast and MRA of head/neck. hx of TIA. 11/16: Neck MRA: Widely patent bilateral common and internal carotid arteries with no significant stenosis appreciated. 11/16: Head MRA: No evidence of occlusion or definite significant stenosis. 11/16: Brain MRI: Stable age related neuro degenerate change identified without acute is over infarction mass-effect hydrocephalus or cortical edema. No suspicious extra-axial collection is encountered in the interval. Follow- up CT or MRI are available as indicated. CT head -> no intracranial hemorrhage. scattered nonspecific white matter changes. carotid dopplers ordered neurology consulted, Dr Cabrales. Follow up recommendations. 3.) Headache 11/18: Will give xanax at bedtime as this is when patient takes it at home. 11/16: Per Dr Cabrales, neurology, will treat the headache with depakote 500 mg IV push, magnesium sulfate 2 grams IV and decadron 10 mg IV ONCE.4 5.) Hematochezia 11/18: FOBT negative 11/17: Pt c/o of blood in stool today. Will f/u on FOBT. 6.) Chronic Pain * History of spinal stenosis, extensive right rotator cuff tear * Start Percocet 1 tab 5/325 q6h PRN pain 7.) History of PTSD, Anxiety, Bipolar, Depression * c/w Paxil 40mg PO daily * c/w Wellbutrin 150mg daily * c/w xanax 0.5mg PO daily as needed 8.) Hyperlipidemia * c/w Crestor 5mg POqHS * Lipid Panel in AM 9.) History of COPD * Patient is not in active exacerbation * Duonebs [id number] PRN for shortness of breath * Advair 250/50 1 puff q12 hours 10.) History of Atrial Fibrillation * c/w Metoprolol Tartrate 25mg daily Hold SBP<100 and HR<60 * c/w Cardizem 30mg QID Hold SBP<100 and HR<60 * restarted xarelto 20mg po daily, patient has been off Xarelto due possible surgery for rotator cuff * HASBLED:4 * [id number] * c/w Aspirin 81mg PO daily 11.) History of Hepatitis C * not on current therapy at this time 12.) Prophylactic Treatment * SCDS bilateral * protonix 40mg po daily * heparin 5000u sc q8 Case discussed with attending, Dr. Arana <Adolfo Arana - Last Filed: 11/20/16 16:47> Objective - Vital Signs/Intake and Output Vital Signs (last 24 hours): Temp Pulse Resp BP Pulse Ox 98.3 F 68 20 107/62 95 11/20/16 08:00 11/20/16 14:50 11/20/16 08:00 11/20/16 14:50 11/20/16 08:00 - Medications Medications: Current Medications Albuterol/Ipratropium (Duoneb 3 Mg/0.5 Mg (3 Ml) Ud) 3 ml INH RQ6 [facility] Last Admin: 11/20/16 13:03 Dose: 3 ml Alprazolam (Xanax) 0.5 mg PO HS [facility] Last Admin: 11/19/16 22:39 Dose: 0.5 mg Aspirin (Aspirin Chewable) 81 mg PO DAILY [facility] Last Admin: 11/20/16 10:40 Dose: 81 mg Bupropion HCl (Wellbutrin Xl) 150 mg PO DAILY [facility] Last Admin: 11/20/16 10:41 Dose: 150 mg Digoxin (Lanoxin) 0.125 mg PO DAILY@1400 [facility] Last Admin: 11/20/16 14:51 Dose: 0.125 mg Diltiazem HCl (Cardizem) 30 mg PO QID [facility] Last Admin: 11/20/16 14:51 Dose: 30 mg Metoprolol Tartrate (Lopressor) 25 mg PO BID [facility] Last Admin: 11/20/16 10:41 Dose: 25 mg Morphine Sulfate (Morphine Extended Release Tab) 15 mg PO BID [facility] Last Admin: 11/20/16 10:38 Dose: 15 mg Oxycodone/Acetaminophen (Percocet 5/325 Mg Tab) 1 tab PO Q6H PRN PRN Reason: Pain, moderate (4-7) Stop: 11/22/16 05:47 Last Admin: 11/20/16 15:02 Dose: 1 tab Pantoprazole Sodium (Protonix Ec Tab) 40 mg PO DAILY [facility] Last Admin: 11/20/16 10:41 Dose: 40 mg Paroxetine HCl (Paxil) 40 mg PO DAILY [facility] Last Admin: 11/20/16 10:41 Dose: 40 mg Rivaroxaban (Xarelto) 20 mg PO DAILY [facility] Last Admin: 11/18/16 09:30 Dose: 20 mg Rosuvastatin Calcium (Crestor) 5 mg PO HS [facility] Last Admin: 11/19/16 22:36 Dose: 5 mg Fluticasone/Salmeterol (Advair Diskus 250/50) 1 puff IH RQD [facility] Last Admin: 11/20/16 07:45 Dose: 1 puff - Labs Labs: 11/20/16 07:48 11/20/16 07:48 PT 11.8 SECONDS (9.7-12.2) 11/15/16 14:17 INR 1.0 11/15/16 14:17 APTT 31 SECONDS (21-34) 11/15/16 14:17 Attending/Attestation - Attestation I have personally seen and examined this patient.: Yes I have fully participated in the care of the patient.: Yes I have reviewed all pertinent clinical information, including history, physical exam and plan: Yes Notes (Text): 11/20/16 16:46 Patient was seen and examined at bedside with the resident Patient continues to have hematuria We will repeat the urinalysis We are awaiting the evaluation by urology We will hold all anticoagulation for now Discussed the plan of care with the nursing staff. I agree with the assessment and plan documented by the resident
[2016-11-20 14:20] LABS: RBC URINE 3595 /hpf (0-3); URINE BILIRUBIN NEGATIVE (NEGATIVE); URINE BLOOD 2+ (NEGATIVE); URINE COLOR Red (YELLOW); URINE GLUCOSE (UA) NORMAL (Normal); URINE KETONE NEGATIVE (NEGATIVE); URINE LEUKOCYTE ESTERASE NEG Leu/uL (Negative); URINE PROTEIN 2+ mg/dL (NEGATIVE); URINE UROBILINOGEN NORMAL mg/dL (0.2-1.0); WBC URINE 4 /hpf (0-5)
[2016-11-20] MEDS: Digoxin 125 mcg (0.125 mg) Tab PO SCH (14:51)
--- NOTE | 2016-11-21 07:30 | CP.PCM.PN ---
Subjective - Date & Time of Evaluation Date of Evaluation: 11/21/16 Time of Evaluation: 07:30 - Subjective Subjective: pt no cp no sob feeling good Objective - Vital Signs/Intake and Output Vital Signs (last 24 hours): Temp Pulse Resp BP Pulse Ox 97.5 F L 61 20 114/77 97 11/20/16 23:50 11/21/16 04:02 11/20/16 23:50 11/20/16 23:50 11/20/16 23:50 Intake and Output: 11/21/16 11/21/16 06:59 18:59 Intake Total 630 Balance 630 - Medications Medications: Current Medications Alprazolam (Xanax) 0.5 mg PO HS [facility] Last Admin: 11/20/16 22:43 Dose: 0.5 mg Aspirin (Aspirin Chewable) 81 mg PO DAILY [facility] Last Admin: 11/20/16 10:40 Dose: 81 mg Bupropion HCl (Wellbutrin Xl) 150 mg PO DAILY [facility] Last Admin: 11/20/16 10:41 Dose: 150 mg Digoxin (Lanoxin) 0.125 mg PO DAILY@1400 [facility] Last Admin: 11/20/16 14:51 Dose: 0.125 mg Diltiazem HCl (Cardizem) 30 mg PO QID [facility] Last Admin: 11/20/16 22:45 Dose: 30 mg Metoprolol Tartrate (Lopressor) 25 mg PO BID [facility] Last Admin: 11/20/16 21:05 Dose: 25 mg Morphine Sulfate (Morphine Extended Release Tab) 15 mg PO BID [facility] Last Admin: 11/20/16 18:10 Dose: 15 mg Oxycodone/Acetaminophen (Percocet 5/325 Mg Tab) 1 tab PO Q6H PRN PRN Reason: Pain, moderate (4-7) Stop: 11/22/16 05:47 Last Admin: 11/20/16 21:22 Dose: 1 tab Pantoprazole Sodium (Protonix Ec Tab) 40 mg PO DAILY [facility] Last Admin: 11/20/16 10:41 Dose: 40 mg Paroxetine HCl (Paxil) 40 mg PO DAILY [facility] Last Admin: 11/20/16 10:41 Dose: 40 mg Rivaroxaban (Xarelto) 20 mg PO DAILY [facility] Last Admin: 11/18/16 09:30 Dose: 20 mg Rosuvastatin Calcium (Crestor) 5 mg PO [facility] Last Admin: 11/20/16 21:05 Dose: 5 mg Fluticasone/Salmeterol (Advair Diskus 250/50) 1 puff IH RQD [facility] Last Admin: 11/20/16 07:45 Dose: 1 puff - Labs Labs: 11/20/16 07:48 11/20/16 07:48 PT 11.8 SECONDS (9.7-12.2) 11/15/16 14:17 INR 1.0 11/15/16 14:17 APTT 31 SECONDS (21-34) 11/15/16 14:17 - Constitutional Appears: Well - Head Exam Head Exam: NORMOCEPHALIC - Eye Exam Eye Exam: Normal appearance - ENT Exam ENT Exam: Mucous Membranes Moist - Respiratory Exam Respiratory Exam: Clear to Ausculation Bilateral - Cardiovascular Exam Cardiovascular Exam: Irregular Rhythm, Murmur - GI/Abdominal Exam GI & Abdominal Exam: Soft, Normal Bowel Sounds - Exam External exam: NORMAL EXTERNAL EXAM - Extremities Exam Extremities Exam: Normal Inspection - Neurological Exam Neurological Exam: Alert, Awake - Psychiatric Exam Psychiatric exam: Normal Affect, Normal Mood - Skin Skin Exam: Intact Assessment and Plan (1) Chest discomfort Assessment & Plan: pt rate controlled with a/c with asa pt shoul continue rate control medications urology will do cysroscopy and evaluate hematuria tolerating PO stable in good spirits Status: Acute
[2016-11-21] MEDS: Oxycodone/Acetaminophen 5/325 mg Tab PO PRN ×3 (07:45→21:33)
[2016-11-21] MEDS: Fluticasone-Salmeterol 250-50mcg Diskus IH SCH (07:50)
[2016-11-21 07:52] LABS: ALB/GLOB RATIO 1.2 (1.0-2.1); ALKALINE PHOSPHATASE 66 U/L (38-126); BLOOD UREA NITROGEN 14 mg/dL (9-20); CHLORIDE 99 mmol/L (98-107); GFR AFRICAN-AMERICAN > 60; MAGNESIUM 2.1 mg/dL (1.6-2.3); SODIUM 142 mmol/L (132-148); TOTAL PROTEIN 6.6 g/dL (6.3-8.3)
[2016-11-21 07:53] LABS: BASO % 0.7 % (0.0-2.0); EOS # 0.2 K/uL (0.0-0.7); EOS % 4.1 % (0.0-4.0); HEMATOCRIT 37.6 % (35.0-51.0); LYMPH # 1.6 K/uL (1.0-4.3); LYMPH % 31.7 % (20.0-40.0); MEAN CELL VOLUME 91.8 fL (80.0-94.0); MEAN CORPUSCULAR HEMOGLOBIN 30.4 pg (27.0-31.0); MEAN CORPUSCULAR HGB CONC 33.1 g/dL (33.0-37.0); MEAN PLATELET VOLUME 7.6 fL (7.2-11.7); MONO # 0.6 K/uL (0.0-0.8); MONO % 12.2 % (0.0-10.0); NRBC % 0.1 % (0.0-2.0); WHITE BLOOD COUNT 5.2 K/uL (4.8-10.8)
[2016-11-21] MEDS: Albuterol-Ipratrop 3 mg / 0.5 (3 ml) UD INH SCH (07:54)
[2016-11-21 08:10] LABS: ALT/SGPT 81 U/L (21-72); AST/SGOT 64 U/L (17-59); BILIRUBIN,TOTAL 0.6 mg/dL (0.2-1.3); CALCIUM 8.5 mg/dl (8.6-10.4); CARBON DIOXIDE 32 mmol/L (22-30); GLUCOSE,RANDOM 101 mg/dL (75-110); POTASSIUM 4.6 mmol/L (3.6-5.2)
[2016-11-21] MEDS: Pantoprazole 40 mg EC Tab PO SCH (09:55)
[2016-11-21] MEDS: buPROPion 150 mg/24 Hours XL Tab PO SCH (09:56)
[2016-11-21] MEDS: Morphine 15 mg SR Tab PO SCH ×2 (09:56→18:00)
--- NOTE | 2016-11-21 12:12 | CP.PCM.PN ---
<Martine Serrano - Last Filed: 11/21/16 16:47> Subjective - Date & Time of Evaluation Date of Evaluation: 11/21/16 Time of Evaluation: 12:10 - Subjective Subjective: PGY2 progress note for hospitalists Pt is seen and examined at bedside. No acute events overnight. Patient still has gross hematuria present. Patient c/o abd pain radiating to both sided of back. He denies having any N/V/D/C, CP, SOB. 12 point ROS are negative except for the above mentioned. Objective - Vital Signs/Intake and Output Vital Signs (last 24 hours): Temp Pulse Resp BP Pulse Ox 97.5 F L 61 20 122/79 97 11/20/16 23:50 11/21/16 04:02 11/20/16 23:50 11/21/16 09:56 11/20/16 23:50 Intake and Output: 11/21/16 11/21/16 06:59 18:59 Intake Total 630 Balance 630 - Medications Medications: Current Medications Alprazolam (Xanax) 0.5 mg PO HS [facility] Last Admin: 11/20/16 22:43 Dose: 0.5 mg Aspirin (Aspirin Chewable) 81 mg PO DAILY [facility] Last Admin: 11/21/16 09:55 Dose: 81 mg Bupropion HCl (Wellbutrin Xl) 150 mg PO DAILY [facility] Last Admin: 11/21/16 09:56 Dose: 150 mg Digoxin (Lanoxin) 0.125 mg PO DAILY@1400 [facility] Last Admin: 11/20/16 14:51 Dose: 0.125 mg Diltiazem HCl (Cardizem) 30 mg PO QID [facility] Last Admin: 11/21/16 09:56 Dose: 30 mg Metoprolol Tartrate (Lopressor) 25 mg PO BID [facility] Last Admin: 11/21/16 09:56 Dose: 25 mg Morphine Sulfate (Morphine Extended Release Tab) 15 mg PO BID [facility] Last Admin: 11/21/16 09:56 Dose: 15 mg Oxycodone/Acetaminophen (Percocet 5/325 Mg Tab) 1 tab PO Q6H PRN PRN Reason: Pain, moderate (4-7) Stop: 11/22/16 05:47 Last Admin: 11/21/16 07:45 Dose: 1 tab Pantoprazole Sodium (Protonix Ec Tab) 40 mg PO DAILY [facility] Last Admin: 11/21/16 09:55 Dose: 40 mg Paroxetine HCl (Paxil) 40 mg PO DAILY [facility] Last Admin: 11/21/16 09:56 Dose: 40 mg Rivaroxaban (Xarelto) 20 mg PO DAILY [facility] Last Admin: 11/18/16 09:30 Dose: 20 mg Rosuvastatin Calcium (Crestor) 5 mg PO HS [facility] Last Admin: 11/20/16 21:05 Dose: 5 mg Fluticasone/Salmeterol (Advair Diskus 250/50) 1 puff IH RQD [facility] Last Admin: 11/21/16 07:50 Dose: 1 puff - Labs Labs: 11/21/16 07:25 11/21/16 07:25 PT 11.8 SECONDS (9.7-12.2) 11/15/16 14:17 INR 1.0 11/15/16 14:17 APTT 31 SECONDS (21-34) 11/15/16 14:17 - Constitutional Appears: Non-toxic, No Acute Distress - Head Exam Head Exam: ATRAUMATIC - ENT Exam ENT Exam: Mucous Membranes Moist - Respiratory Exam Respiratory Exam: Clear to Ausculation Bilateral. absent: Accessory Muscle Use , Rales, Rhonchi, Wheezes, Respiratory Distress - Cardiovascular Exam Cardiovascular Exam: REGULAR RHYTHM, +S1, +S2. absent: Gallop, Rubs, Murmur - GI/Abdominal Exam GI & Abdominal Exam: Soft, Normal Bowel Sounds. absent: Firm, Guarding, Rigid, Tenderness, Organomegaly - Extremities Exam Extremities Exam: absent: Pedal Edema, Tenderness - Neurological Exam Neurological Exam: Alert, Awake, Oriented x3 - Psychiatric Exam Psychiatric exam: Normal Affect, Normal Mood - Skin Skin Exam: Dry, Intact, Normal Color, Warm Assessment and Plan - Assessment and Plan (Free Text) Assessment: 1.) Hematuria Hgb remains steady. Will continue to monitor Repeat urinalysis shows 2 + protein and 2+ blood and 3595 RBC Urine culture from 11/18 negative - Abdomen/Bladder U/S: Multiple small bilateral nonobstructing renal calculi. Otherwise unremarkable examination. Xaralto still on hold. - Heparin and Xeralto d/mina - will check PSA Urology, Dr. Pisano is consulted. Recommends cystoscopy tomorrow if medically cleared 2.) Chest Pain * Resolved * Observe to telemetry * Aspirin 81mg PO 1x daily * c/w Metoprolol Tartrate 25mg daily HOLD SBP<100 and HR<60 * c/w Cardizem 30mg 4x a day HOLD SBP<100 and HR<60 * c/w digoxin .125mg po daily * Troponin negative x3 * ECHO (06/06/16): Left atrial enlarged, right atrium dilated, LV:60% * HgA1C 5.6 on last admission in 09/2016 * Lipid Panel wnl 5.6 on last admission in 09/2016 * TSH wnl 5.6 on last admission in 09/2016 3.) Slurred Speech Resolved 11/16: Dr Cabrales, neurology,given headache and abnormal neuro exam recommended MRI of brain w/out contrast and MRA of head/neck. hx of TIA. 11/16: Neck MRA: Widely patent bilateral common and internal carotid arteries with no significant stenosis appreciated. 11/16: Head MRA: No evidence of occlusion or definite significant stenosis. 11/16: Brain MRI: Stable age related neuro degenerate change identified without acute is over infarction mass-effect hydrocephalus or cortical edema. No suspicious extra-axial collection is encountered in the interval. Follow- up CT or MRI are available as indicated. CT head -> no intracranial hemorrhage. scattered nonspecific white matter changes. carotid dopplers ordered neurology consulted, Dr Cabrales. Follow up recommendations. 3.) Headache 11/18: Will give xanax at bedtime as this is when patient takes it at home. 11/16: Per Dr Cabrales, neurology, will treat the headache with depakote 500 mg IV push, magnesium sulfate 2 grams IV and decadron 10 mg IV ONCE.4 5.) Hematochezia Negative FOBT 6.) Chronic Pain * History of spinal stenosis, extensive right rotator cuff tear * Start Percocet 1 tab 5/325 q6h PRN pain 7.) History of PTSD, Anxiety, Bipolar, Depression * c/w Paxil 40mg PO daily * c/w Wellbutrin 150mg daily * c/w xanax 0.5mg PO daily as needed 8.) Hyperlipidemia * c/w Crestor 5mg POqHS * Lipid Panel in AM 9.) History of COPD * Patient is not in active exacerbation * Duonebs [id number] PRN for shortness of breath * Advair 250/50 1 puff q12 hours 10.) History of Atrial Fibrillation * c/w Metoprolol Tartrate 25mg daily Hold SBP<100 and HR<60 * c/w Cardizem 30mg QID Hold SBP<100 and HR<60 * restarted xarelto 20mg po daily, patient has been off Xarelto due possible surgery for rotator cuff * HASBLED:4 * [id number] * c/w Aspirin 81mg PO daily 11.) History of Hepatitis C * not on current therapy at this time 12.) Prophylactic Treatment * SCDS bilateral * protonix 40mg po daily * heparin 5000u sc q8 Patient has low risk of perioperative cardiovascular event during procedure. Urologist and anesthesiologist to explain the risk and benefits of the procedure. Case discussed with attending, Dr. Arana <Adolfo Arana - Last Filed: 11/21/16 17:07> Objective - Vital Signs/Intake and Output Vital Signs (last 24 hours): Temp Pulse Resp BP Pulse Ox 97.5 F L 60 20 122/79 97 11/20/16 23:50 11/21/16 10:00 11/20/16 23:50 11/21/16 09:56 11/20/16 23:50 Intake and Output: 11/21/16 11/21/16 06:59 18:59 Intake Total 630 Balance 630 - Medications Medications: Current Medications Alprazolam (Xanax) 0.5 mg PO HS [facility] Last Admin: 11/20/16 22:43 Dose: 0.5 mg Aspirin (Aspirin Chewable) 81 mg PO DAILY [facility] Last Admin: 11/21/16 09:55 Dose: 81 mg Bupropion HCl (Wellbutrin Xl) 150 mg PO DAILY [facility] Last Admin: 11/21/16 09:56 Dose: 150 mg Digoxin (Lanoxin) 0.125 mg PO DAILY@1400 [facility] Last Admin: 11/21/16 13:49 Dose: 0.125 mg Diltiazem HCl (Cardizem) 30 mg PO QID [facility] Last Admin: 11/21/16 13:50 Dose: 30 mg Metoprolol Tartrate (Lopressor) 25 mg PO BID [facility] Last Admin: 11/21/16 09:56 Dose: 25 mg Morphine Sulfate (Morphine Extended Release Tab) 15 mg PO BID [facility] Last Admin: 11/21/16 09:56 Dose: 15 mg Oxycodone/Acetaminophen (Percocet 5/325 Mg Tab) 1 tab PO Q6H PRN PRN Reason: Pain, moderate (4-7) Stop: 11/22/16 05:47 Last Admin: 11/21/16 13:50 Dose: 1 tab Pantoprazole Sodium (Protonix Ec Tab) 40 mg PO DAILY [facility] Last Admin: 11/21/16 09:55 Dose: 40 mg Paroxetine HCl (Paxil) 40 mg PO DAILY [facility] Last Admin: 11/21/16 09:56 Dose: 40 mg Rivaroxaban (Xarelto) 20 mg PO DAILY [facility] Last Admin: 11/18/16 09:30 Dose: 20 mg Rosuvastatin Calcium (Crestor) 5 mg PO HS [facility] Last Admin: 11/20/16 21:05 Dose: 5 mg Fluticasone/Salmeterol (Advair Diskus 250/50) 1 puff IH RQD [facility] Last Admin: 11/21/16 07:50 Dose: 1 puff - Labs Labs: 11/21/16 07:25 11/21/16 07:25 PT 11.8 SECONDS (9.7-12.2) 11/15/16 14:17 INR 1.0 11/15/16 14:17 APTT 31 SECONDS (21-34) 11/15/16 14:17 Attending/Attestation - Attestation I have personally seen and examined this patient.: Yes I have fully participated in the care of the patient.: Yes I have reviewed all pertinent clinical information, including history, physical exam and plan: Yes Notes (Text): 11/21/16 17:07 Patient seen and examined at bedside Appears comfortable however continues to have hematuria. Hemoglobin and hematocrit is stable Plan for cystoscopy tomorrow as per urology Patient is medically cleared for the procedure with no perioperative cardiovascular risk I discussed the plan of care with the resident and agree with assessment plan documented by the resident.
[2016-11-21] MEDS: Digoxin 125 mcg (0.125 mg) Tab PO SCH (13:49)
[2016-11-22] MEDS: Oxycodone/Acetaminophen 5/325 mg Tab PO PRN ×2 (05:31→21:47)
[2016-11-22 06:16] LABS: BASO % 0.5 % (0.0-2.0); EOS # 0.3 K/uL (0.0-0.7); EOS % 4.2 % (0.0-4.0); HEMATOCRIT 37.2 % (35.0-51.0); LYMPH # 2.3 K/uL (1.0-4.3); LYMPH % 35.7 % (20.0-40.0); MEAN CELL VOLUME 91.4 fL (80.0-94.0); MEAN CORPUSCULAR HEMOGLOBIN 30.5 pg (27.0-31.0); MEAN CORPUSCULAR HGB CONC 33.4 g/dL (33.0-37.0); MEAN PLATELET VOLUME 7.5 fL (7.2-11.7); MONO # 0.7 K/uL (0.0-0.8); MONO % 11.6 % (0.0-10.0); NRBC % 0.1 % (0.0-2.0); RED CELL DISTRIBUTION WIDTH 13.3 % (11.5-14.5); WHITE BLOOD COUNT 6.4 K/uL (4.8-10.8)
[2016-11-22 07:15] LABS: CHLORIDE 101 mmol/L (98-107)
[2016-11-22 07:16] LABS: POTASSIUM 4.2 mmol/L (3.6-5.2); SODIUM 140 mmol/L (132-148)
[2016-11-22 07:18] LABS: ALB/GLOB RATIO 1.2 (1.0-2.1); ALKALINE PHOSPHATASE 67 U/L (38-126); AST/SGOT 62 U/L (17-59); BILIRUBIN,TOTAL 0.5 mg/dL (0.2-1.3); BLOOD UREA NITROGEN 18 mg/dL (9-20); CARBON DIOXIDE 27 mmol/L (22-30); GFR AFRICAN-AMERICAN > 60; GLUCOSE,RANDOM 101 mg/dL (75-110); TOTAL PROTEIN 6.4 g/dL (6.3-8.3)
[2016-11-22 07:19] LABS: ALT/SGPT 90 U/L (21-72); CALCIUM 8.5 mg/dl (8.6-10.4); MAGNESIUM 1.9 mg/dL (1.6-2.3); PHOSPHOROUS 3.6 mg/dL (2.5-4.5)
[2016-11-22] MEDS: Fluticasone-Salmeterol 250-50mcg Diskus IH SCH (08:06)
[2016-11-22] MEDS: Pantoprazole 40 mg EC Tab PO SCH (09:29)
[2016-11-22] MEDS: buPROPion 150 mg/24 Hours XL Tab PO SCH (09:30)
[2016-11-22] MEDS: Morphine 15 mg SR Tab PO SCH ×2 (09:31→18:43)
--- NOTE | 2016-11-22 10:00 | CP.PCM.PN ---
<Jose Horton S - Last Filed: 11/22/16 15:02> Subjective - Date & Time of Evaluation Date of Evaluation: 11/22/16 Time of Evaluation: 09:57 - Subjective Subjective: PGY2 Progress note- Dr. Barlow Pt seen and examined at bedside. He appears comfortable, in no acute distress. He continues to pass blood tinged urine. He complains of lower back pain and dysuria. He denies fever, chill, chest pain, shortness of breath, nausea, and vomiting. Objective - Vital Signs/Intake and Output Vital Signs (last 24 hours): Temp Pulse Resp BP Pulse Ox 97.4 F L 65 20 105/71 98 11/22/16 07:55 11/22/16 07:55 11/22/16 07:55 11/22/16 09:30 11/22/16 07:55 Intake and Output: 11/22/16 11/22/16 06:59 18:59 Intake Total 400 Balance 400 - Medications Medications: Current Medications Alprazolam (Xanax) 0.5 mg PO HS [facility] Last Admin: 11/21/16 22:38 Dose: 0.5 mg Aspirin (Aspirin Chewable) 81 mg PO DAILY [facility] Last Admin: 11/22/16 09:29 Dose: 81 mg Bupropion HCl (Wellbutrin Xl) 150 mg PO DAILY [facility] Last Admin: 11/21/16 09:56 Dose: 150 mg Digoxin (Lanoxin) 0.125 mg PO DAILY@1400 [facility] Last Admin: 11/21/16 13:49 Dose: 0.125 mg Diltiazem HCl (Cardizem) 30 mg PO QID [facility] Last Admin: 11/22/16 09:29 Dose: 30 mg Metoprolol Tartrate (Lopressor) 25 mg PO BID [facility] Last Admin: 11/22/16 09:30 Dose: 25 mg Morphine Sulfate (Morphine Extended Release Tab) 15 mg PO BID [facility] Last Admin: 11/22/16 09:31 Dose: 15 mg Pantoprazole Sodium (Protonix Ec Tab) 40 mg PO DAILY [facility] Last Admin: 11/22/16 09:29 Dose: 40 mg Paroxetine HCl (Paxil) 40 mg PO DAILY [facility] Last Admin: 11/22/16 09:29 Dose: 40 mg Rivaroxaban (Xarelto) 20 mg PO DAILY [facility] Last Admin: 11/18/16 09:30 Dose: 20 mg Rosuvastatin Calcium (Crestor) 5 mg PO HS [facility] Last Admin: 11/21/16 21:32 Dose: 5 mg Fluticasone/Salmeterol (Advair Diskus 250/50) 1 puff IH RQD [facility] Last Admin: 11/22/16 08:06 Dose: 1 puff - Labs Labs: 11/22/16 06:00 11/22/16 06:00 PT 11.8 SECONDS (9.7-12.2) 11/15/16 14:17 INR 1.0 11/15/16 14:17 APTT 31 SECONDS (21-34) 11/15/16 14:17 - Constitutional Appears: No Acute Distress - Head Exam Head Exam: ATRAUMATIC - Eye Exam Eye Exam: EOMI, Normal appearance Pupil Exam: Irregular - ENT Exam ENT Exam: Mucous Membranes Moist - Respiratory Exam Respiratory Exam: Clear to Ausculation Bilateral - GI/Abdominal Exam GI & Abdominal Exam: Soft. absent: Tenderness - Extremities Exam Extremities Exam: Normal Inspection. absent: Calf Tenderness, Pedal Edema - Back Exam Back Exam: NORMAL INSPECTION. absent: CVA tenderness (L) - Neurological Exam Neurological Exam: Alert, Awake, Oriented x3 Assessment and Plan - Assessment and Plan (Free Text) Assessment: 61 y/o male with hx of CAD, A fib, IA, TIA presented with headache and angina that has now resolved but has developed hematuria Plan: Angina- R/O ACS No longer symptomatic- resolved -continue medications asa 81mg PO daily digoxin 125mcg PO daily cardizem 30mg po qid lopressor 25mg PO bid crestor 5mg PO daily heparin 5k subq q12hrs EKG: Afib Echo: borderline LVH; EF 64% (09/2016) Trops: negative x3 HgA1C: 5.6 (09/2016) Lipid Panel: Total-156/LDL-102/HDL-44 (09/2016) TSH 1.5 (09/2016) Stress testing prior to discharge Afib Currently rate controlled continue with medications as detailed above Xarelto held in setting of hematuria Case discussed with Dr. Barlow <Kristy Barlow - Last Filed: 12/23/16 07:05> Objective - Vital Signs/Intake and Output Vital Signs (last 24 hours): Temp Pulse Resp BP Pulse Ox 97.6 F 73 18 98/61 L 95 11/26/16 16:00 11/26/16 16:00 11/26/16 16:00 11/26/16 16:00 11/26/16 16:00 - Labs Labs: 11/26/16 06:42 11/26/16 06:38 PT 11.8 SECONDS (9.7-12.2) 11/15/16 14: INR 1.0 11/15/16 14:17 APTT 31 SECONDS (21-34) 11/15/16 14:17 Attending/Attestation - Attestation I have personally seen and examined this patient.: Yes I have fully participated in the care of the patient.: Yes I have reviewed all pertinent clinical information, including history, physical exam and plan: Yes Notes (Text): 12/23/16 07:05 continue asa urology evaluating hematuria stable h/h
[2016-11-22] MEDS: Digoxin 125 mcg (0.125 mg) Tab PO SCH (14:02)
[2016-11-22] MEDS ORDERED: cefTRIAXone IV 1 gm in Dextros 50 ML IVPB ONE (14:27)
[2016-11-22] MEDS ORDERED: Iohexol 240 (50 ml) ONE (14:27)
[2016-11-22] MEDS ORDERED: Lactated Ringer's 1,000 ML IV ONE (14:29)
[2016-11-22] MEDS ORDERED: Midazolam 2 MG/2 ML VIAL ONE ×2 (14:34→14:37)
[2016-11-22] MEDS ORDERED: Propofol 10 mg/ml Inj (20 ML) ONE ×2 (14:34→14:47)
[2016-11-22] MEDS: HYDROmorphone 0.5 mg/0.5 ml ISec IVP PRN ×2 (15:26→15:48)
--- NOTE | 2016-11-22 17:08 | RAD ---
Abdomen two views History: Hematuria. Comparison: Ultrasound dated 11/19/2016 Findings: Punctate bilateral foci of increased radiodensity seen projecting over the bilateral kidneys suggestive for nonobstructive calculi. Fecal retention in the colon. Degenerative changes in the spine and hips. Contrast is seen within the collecting systems from retrograde contrast opacification. Impression: Punctate bilateral foci of increased radiodensity seen projecting over the bilateral kidneys suggestive for nonobstructive calculi. Fecal retention in the colon. Degenerative changes in the spine and hips. Contrast is seen within the collecting systems from retrograde contrast opacification.
--- NOTE | 2016-11-22 17:08 | RAD ---
PROCEDURE: Intraoperative Fluoroscopy. HISTORY: HEMATURIA FINDINGS: Fluoroscopic assistance was provided for right nephro ureteral stent placement. Please refer to the operative report from
--- NOTE | 2016-11-22 19:04 | CP.PCM.PN ---
<Justin Kramer - Last Filed: 11/22/16 18:52> Subjective - Date & Time of Evaluation Date of Evaluation: 11/22/16 Time of Evaluation: 07:15 - Subjective Subjective: PGY-[address] Ang Mora's Service: Patient was seen and examined today at bedside in [facility]. Started NPO at midnight for cystoscopy this afternoon. Unable to urinate this morning due to generalized discomfort. Last urination at 3am, continues to pass blood tinged urine. Was able to have BM in the AM; reported passing BM exacerbated the generalized pain. Reports left sided headache, reports a tingling sensation down left arm into left hand, denies pain. Complains of new onset superficial point sharp stabbing chest pain without radiation. It recurs momentarily slightly left of the sternum every 10-15 minutes since awakening this morning. Did not awaken due described pain. Reports no change in back pain and lower abdominal pain. Admits fatigue walking to the bathroom. Denies f/c, n/v/c/d, chest pain, palpitations, SOB, Objective - Vital Signs/Intake and Output Vital Signs (last 24 hours): Temp Pulse Resp BP Pulse Ox 97.3 F L 53 L 20 140/70 98 11/22/16 16:30 11/22/16 16:30 11/22/16 16:30 11/22/16 18:43 11/22/16 16:30 Intake and Output: 11/22/16 11/22/16 06:59 18:59 Intake Total 400 50 Output Total 20 Balance 400 30 - Medications Medications: Current Medications Alprazolam (Xanax) 0.5 mg PO HS [facility] Last Admin: 11/21/16 22:38 Dose: 0.5 mg Aspirin (Aspirin Chewable) 81 mg PO DAILY [facility] Last Admin: 11/22/16 09:29 Dose: 81 mg Bupropion HCl (Wellbutrin Xl) 150 mg PO DAILY [facility] Last Admin: 11/22/16 09:30 Dose: 150 mg Digoxin (Lanoxin) 0.125 mg PO DAILY@1400 [facility] Last Admin: 11/22/16 14:02 Dose: 0.125 mg Diltiazem HCl (Cardizem) 30 mg PO QID [facility] Last Admin: 11/22/16 18:43 Dose: 30 mg Metoprolol Tartrate (Lopressor) 25 mg PO BID [facility] Last Admin: 11/22/16 18:43 Dose: 25 mg Morphine Sulfate (Morphine Extended Release Tab) 15 mg PO BID [facility] Last Admin: 11/22/16 18:43 Dose: 15 mg Oxycodone/Acetaminophen (Percocet 5/325 Mg Tab) 1 tab PO Q4H PRN PRN Reason: Bladder Spasm Stop: 11/25/16 14:42 Pantoprazole Sodium (Protonix Ec Tab) 40 mg PO DAILY [facility] Last Admin: 11/22/16 09:29 Dose: 40 mg Paroxetine HCl (Paxil) 40 mg PO DAILY [facility] Last Admin: 11/22/16 09:29 Dose: 40 mg Rivaroxaban (Xarelto) 20 mg PO DAILY [facility] Last Admin: 11/18/16 09:30 Dose: 20 mg Rosuvastatin Calcium (Crestor) 5 mg PO HS [facility] Last Admin: 11/21/16 21:32 Dose: 5 mg Fluticasone/Salmeterol (Advair Diskus 250/50) 1 puff IH RQD [facility] Last Admin: 11/22/16 08:06 Dose: 1 puff - Labs Labs: 11/22/16 06:00 11/22/16 06:00 PT 11.8 SECONDS (9.7-12.2) 11/15/16 14:17 INR 1.0 11/15/16 14:17 APTT 31 SECONDS (21-34) 11/15/16 14:17 - Constitutional Appears: Well, No Acute Distress - Head Exam Head Exam: NORMAL INSPECTION - Eye Exam Eye Exam: Normal appearance - ENT Exam ENT Exam: Mucous Membranes Moist - Neck Exam Neck Exam: Normal Inspection - Respiratory Exam Respiratory Exam: Clear to Ausculation Bilateral, NORMAL BREATHING PATTERN - Cardiovascular Exam Cardiovascular Exam: REGULAR RHYTHM, +S1, +S2. absent: Murmur - GI/Abdominal Exam GI & Abdominal Exam: Soft, Tenderness, Normal Bowel Sounds Additional comments: Diffuse tenderness to deep palpations, most severe in suprapubic region - Rectal Exam Rectal Exam: Deferred - Extremities Exam Extremities Exam: Normal Inspection. absent: Tenderness - Neurological Exam Neurological Exam: Alert, Awake - Psychiatric Exam Psychiatric exam: Normal Affect, Normal Mood Assessment and Plan - Assessment and Plan (Free Text) Assessment: 1.) Hematuria Pt s/p cystoscopy today with bilateral retrograde pyelogram with right ureter stent insertion Hgb remains steady. Will continue to monitor Repeat urinalysis shows 2 + protein and 2+ blood and 3595 RBC Urine culture from 11/18 negative - Abdomen/Bladder U/S: Multiple small bilateral nonobstructing renal calculi. Otherwise unremarkable examination. Xaralto still on hold. - Heparin d/mina, Xeralto restarted 20mg po daily - will check PSA Urology, Dr. Pisano is consulted. 2.) Chest Pain * 11/22: Pt reported pin-point chest pain today which was different in quality and location than chest pain on admission * Observe to telemetry * Aspirin 81mg PO 1x daily * c/w Metoprolol Tartrate 25mg daily HOLD SBP<100 and HR<60 * c/w Cardizem 30mg 4x a day HOLD SBP<100 and HR<60 * c/w digoxin .125mg po daily * Troponin negative x3 * ECHO (06/06/16): Left atrial enlarged, right atrium dilated, LV:60% * HgA1C 5.6 on last admission in 09/2016 * Lipid Panel wnl 5.6 on last admission in 09/2016 * TSH wnl 5.6 on last admission in 09/2016 3.) Slurred Speech Resolved 11/16: Dr Cabrales, neurology,given headache and abnormal neuro exam recommended MRI of brain w/out contrast and MRA of head/neck. hx of TIA. 11/16: Neck MRA: Widely patent bilateral common and internal carotid arteries with no significant stenosis appreciated. 11/16: Head MRA: No evidence of occlusion or definite significant stenosis. 11/16: Brain MRI: Stable age related neuro degenerate change identified without acute is over infarction mass-effect hydrocephalus or cortical edema. No suspicious extra-axial collection is encountered in the interval. Follow- up CT or MRI are available as indicated. CT head -> no intracranial hemorrhage. scattered nonspecific white matter changes. carotid dopplers ordered neurology consulted, Dr Cabrales. Follow up recommendations. 3.) Headache 11/18: Will give xanax at bedtime as this is when patient takes it at home. 11/16: Per Dr Cabrales, neurology, will treat the headache with depakote 500 mg IV push, magnesium sulfate 2 grams IV and decadron 10 mg IV ONCE.4 5.) Hematochezia Negative FOBT 6.) Chronic Pain * History of spinal stenosis, extensive right rotator cuff tear * Start Percocet 1 tab 5/325 q6h PRN pain 7.) History of PTSD, Anxiety, Bipolar, Depression * c/w Paxil 40mg PO daily * c/w Wellbutrin 150mg daily * c/w xanax 0.5mg PO daily as needed 8.) Hyperlipidemia * c/w Crestor 5mg POqHS * Lipid Panel in AM 9.) History of COPD * Patient is not in active exacerbation * Duonebs [id number] PRN for shortness of breath * Advair 250/50 1 puff q12 hours 10.) History of Atrial Fibrillation * c/w Metoprolol Tartrate 25mg daily Hold SBP<100 and HR<60 * c/w Cardizem 30mg QID Hold SBP<100 and HR<60 * restarted xarelto 20mg po daily, patient has been off Xarelto due possible surgery for rotator cuff * ASA 81mg po daily * HASBLED:4 * [id number] * c/w Aspirin 81mg PO daily 11.) History of Hepatitis C * not on current therapy at this time 12.) Prophylactic Treatment * SCDS bilateral * protonix 40mg po daily * heparin 5000u sc q8 being held, xeralto restarted * PT/OT treat and Eval Case discussed with attending, Dr. Ang Mora <Ang Mora - Last Filed: 11/22/16 19:14> Objective - Vital Signs/Intake and Output Vital Signs (last 24 hours): Temp Pulse Resp BP Pulse Ox 97.3 F L 53 L 20 140/70 98 11/22/16 16:30 11/22/16 16:30 11/22/16 16:30 11/22/16 18:43 11/22/16 16:30 Intake and Output: 11/22/16 11/23/16 18:59 06:59 Intake Total 50 Output Total 20 Balance 30 - Medications Medications: Current Medications Alprazolam (Xanax) 0.5 mg PO [facility] Last Admin: 11/21/16 22:38 Dose: 0.5 mg Aspirin (Aspirin Chewable) 81 mg PO DAILY [facility] Last Admin: 11/22/16 09:29 Dose: 81 mg Bupropion HCl (Wellbutrin Xl) 150 mg PO DAILY [facility] Last Admin: 11/22/16 09:30 Dose: 150 mg Digoxin (Lanoxin) 0.125 mg PO DAILY@1400 [facility] Last Admin: 11/22/16 14:02 Dose: 0.125 mg Diltiazem HCl (Cardizem) 30 mg PO QID [facility] Last Admin: 11/22/16 18:43 Dose: 30 mg Metoprolol Tartrate (Lopressor) 25 mg PO BID [facility] Last Admin: 11/22/16 18:43 Dose: 25 mg Morphine Sulfate (Morphine Extended Release Tab) 15 mg PO BID [facility] Last Admin: 11/22/16 18:43 Dose: 15 mg Oxycodone/Acetaminophen (Percocet 5/325 Mg Tab) 1 tab PO Q4H PRN PRN Reason: Bladder Spasm Stop: 11/25/16 14:42 Pantoprazole Sodium (Protonix Ec Tab) 40 mg PO DAILY [facility] Last Admin: 11/22/16 09:29 Dose: 40 mg Paroxetine HCl (Paxil) 40 mg PO DAILY [facility] Last Admin: 11/22/16 09:29 Dose: 40 mg Rivaroxaban (Xarelto) 20 mg PO DAILY [facility] Last Admin: 11/18/16 09:30 Dose: 20 mg Rosuvastatin Calcium (Crestor) 5 mg PO HS [facility] Last Admin: 11/21/16 21:32 Dose: 5 mg Fluticasone/Salmeterol (Advair Diskus 250/50) 1 puff IH RQD [facility] Last Admin: 11/22/16 08:06 Dose: 1 puff - Labs Labs: 11/22/16 06:00 11/22/16 06:00 PT 11.8 SECONDS (9.7-12.2) 11/15/16 14:17 INR 1.0 11/15/16 14:17 APTT 31 SECONDS (21-34) 11/15/16 14:17 Attending/Attestation - Attestation I have personally seen and examined this patient.: Yes I have fully participated in the care of the patient.: Yes I have reviewed all pertinent clinical information, including history, physical exam and plan: Yes Notes (Text): 11/22/16 19:09 Patient was seen and examined at 10:15 AM 11/22/16. Exam, Assessment and Plan, were thoroughly gone over with the resident. Upon ROS at the time of my exam: Bilateral sharp pressure like pain in the bilateral upper quadrants of the abdomen (+) Bright red urine Dark stool this morning Nausea earlier this morning but not now Dizziness for about 2 minutes this morning but not now Patient is in no distress and not in any pain, HEENT, Cardio, Resp, GI, Ext, Neuro exams were all completely unremarkable. F/U repeat Stool Occult Blood (one done on 11/17/16 was negative) For is hematuria may be secondary to the multiple bilateral nonobstructing renal calculi seen on U/S Abdomen 11/19/16. He is for cytoscopy with Urology Dr. Madeline Pisano later today. Ang Mora D.O.
--- NOTE | 2016-11-23 02:44 | CON ---
UROLOGY CONSULTATION DATE OF CONSULTATION: 11/18/2016 REASON FOR CONSULTATION: Hematuria. HISTORY OF PRESENT ILLNESS: Mr. Elias was admitted to the hospital for chest pain under the care of . From a urology standpoint, he is noted to have a presence of hematuria, see below. He reports he has back pain from his chronic illness. But this is different. it is radiating from the right flank to the right groin. Urology is consulted, to see the patient. PAST MEDICAL AND SURGICAL HISTORY: As listed above. Otherwise unremarkable. MEDICATIONS: See chart. ALLERGIES: See chart. PHYSICAL EXAMINATION: GENERAL: A well-nourished male, in no apparent distress, currently resting comfortably. The reminder of the physical exam is unremarkable. Rectal exam is deferred. LABORATORY DATA: See chart. DIAGNOSIS: Gross hematuria. PLAN: The plan Is as follows: 1. The patient is on multiple medications including thinners of blood. 2, We discussed options. He will need the further workup including cystoscopy. His upper tract imaging was CT scan of the abdomen and pelvis timing for this. The other plan is as follows: 1. We will upper tract the imaging. 2. PSA. 3. Urinalysis, culture and cytology. 4. CT scan of the abdomen and pelvis without and with IV contrast and then a cystoscopy to follow up. Further plans will follow depending on how the patient does clinically, but these are general recommendations. Etienne Pisano MD
[2016-11-23 07:19] LABS: ALB/GLOB RATIO 1.1 (1.0-2.1); ALKALINE PHOSPHATASE 90 U/L (38-126); ALT/SGPT 90 U/L (21-72); AST/SGOT 59 U/L (17-59); BILIRUBIN,TOTAL 0.8 mg/dL (0.2-1.3); BLOOD UREA NITROGEN 17 mg/dL (9-20); CALCIUM 8.9 mg/dl (8.6-10.4); CARBON DIOXIDE 25 mmol/L (22-30); CHLORIDE 95 mmol/L (98-107); GFR AFRICAN-AMERICAN > 60; GLUCOSE,RANDOM 137 mg/dL (75-110); MAGNESIUM 1.9 mg/dL (1.6-2.3); PHOSPHOROUS 3.3 mg/dL (2.5-4.5); POTASSIUM 4.4 mmol/L (3.6-5.2); SODIUM 135 mmol/L (132-148); TOTAL PROTEIN 7.2 g/dL (6.3-8.3)
[2016-11-23 07:23] LABS: BASO % 0.2 % (0.0-2.0); EOS % 0.1 % (0.0-4.0); HEMATOCRIT 41.5 % (35.0-51.0); LYMPH % 8.2 % (20.0-40.0); MEAN CELL VOLUME 89.8 fL (80.0-94.0); MEAN CORPUSCULAR HEMOGLOBIN 30.1 pg (27.0-31.0); MEAN CORPUSCULAR HGB CONC 33.5 g/dL (33.0-37.0); MONO # 0.3 K/uL (0.0-0.8); MONO % 2.6 % (0.0-10.0); NRBC % 0.1 % (0.0-2.0); PLATELET COUNT 213 K/uL (130-400)
--- NOTE | 2016-11-23 07:30 | CP.PCM.PN ---
<Justin Kramer - Last Filed: 11/23/16 15:59> Subjective - Date & Time of Evaluation Date of Evaluation: 11/23/16 Time of Evaluation: 07:00 - Subjective Subjective: PGY-[address] Ang Mora's Service: Patient was seen and examined at bedside today in NAD. POD#1 cystoscopy with right nephro ureteral stent placement. Began feeling nauseated after surgery with two episodes of vomiting overnight. Reports that vomitus is watery of unknown color, slightly less than intake. Uninterested in eating dinner last night, unable to sleep longer than an hour at a night last night. Urine collected overnight is darker than before, continues to be blood tinged. Was able to have BM in the AM; reported passing BM exacerbated the generalized pain. Chest pain has decreased in frequency since yesterday. Reports having it twice an hour, quality unchanged from yesterday. Reports no change in headache, back pain, lower abdominal pain. Admits fatigue, dizziness on exertion. Denies f /c, c/d, chest pain, palpitations, SOB. Objective - Vital Signs/Intake and Output Vital Signs (last 24 hours): Temp Pulse Resp BP Pulse Ox 98.1 F 61 20 152/71 H 98 11/22/16 23:55 11/22/16 23:55 11/22/16 23:55 11/22/16 23:55 11/22/16 23:55 Intake and Output: 11/23/16 11/23/16 06:59 18:59 Intake Total 600 Output Total 1400 Balance -800 - Medications Medications: Current Medications Alprazolam (Xanax) 0.5 mg PO HS [facility] Last Admin: 11/22/16 21:47 Dose: 0.5 mg Aspirin (Aspirin Chewable) 81 mg PO DAILY [facility] Last Admin: 11/22/16 09:29 Dose: 81 mg Bupropion HCl (Wellbutrin Xl) 150 mg PO DAILY [facility] Last Admin: 11/22/16 09:30 Dose: 150 mg Digoxin (Lanoxin) 0.125 mg PO DAILY@1400 [facility] Last Admin: 11/22/16 14:02 Dose: 0.125 mg Diltiazem HCl (Cardizem) 30 mg PO QID [facility] Last Admin: 11/22/16 21:47 Dose: 30 mg Metoprolol Tartrate (Lopressor) 25 mg PO BID [facility] Last Admin: 11/22/16 18:43 Dose: 25 mg Morphine Sulfate (Morphine Extended Release Tab) 15 mg PO BID [facility] Last Admin: 11/22/16 18:43 Dose: 15 mg Oxycodone/Acetaminophen (Percocet 5/325 Mg Tab) 1 tab PO Q4H PRN PRN Reason: Bladder Spasm Stop: 11/25/16 14:42 Last Admin: 11/22/16 21:47 Dose: 1 tab Pantoprazole Sodium (Protonix Ec Tab) 40 mg PO DAILY [facility] Last Admin: 11/22/16 09:29 Dose: 40 mg Paroxetine HCl (Paxil) 40 mg PO DAILY [facility] Last Admin: 11/22/16 09:29 Dose: 40 mg Rivaroxaban (Xarelto) 20 mg PO DAILY [facility] Last Admin: 11/18/16 09:30 Dose: 20 mg Rosuvastatin Calcium (Crestor) 5 mg PO HS [facility] Last Admin: 11/22/16 21:47 Dose: 5 mg Fluticasone/Salmeterol (Advair Diskus 250/50) 1 puff IH RQD [facility] Last Admin: 11/22/16 08:06 Dose: 1 puff - Labs Labs: 11/22/16 06:00 11/23/16 06:43 PT 11.8 SECONDS (9.7-12.2) 11/15/16 14:17 INR 1.0 11/15/16 14:17 APTT 31 SECONDS (21-34) 11/15/16 14:17 - Constitutional Appears: No Acute Distress - Head Exam Head Exam: NORMAL INSPECTION - Eye Exam Eye Exam: Normal appearance - ENT Exam ENT Exam: Mucous Membranes Moist - Neck Exam Neck Exam: Normal Inspection - Respiratory Exam Respiratory Exam: Clear to Ausculation Bilateral, NORMAL BREATHING PATTERN - Cardiovascular Exam Cardiovascular Exam: REGULAR RHYTHM, +S1, +S2. absent: Murmur - GI/Abdominal Exam GI & Abdominal Exam: Soft, Normal Bowel Sounds Additional comments: diffuse tenderness to deep palpitations, most severe in suprapubic region - Rectal Exam Rectal Exam: Deferred - Back Exam Back Exam: CVA tenderness (L), CVA tenderness (R), NORMAL INSPECTION Additional comments: CVA tenderness right >> left - Neurological Exam Neurological Exam: Alert, Awake - Psychiatric Exam Psychiatric exam: Normal Affect, Normal Mood - Skin Skin Exam: Dry, Intact, Normal Color, Warm Assessment and Plan - Assessment and Plan (Free Text) Assessment: 1.) Hematuria 11/23: Pt continuing to have hematuria s/p right ureter stent insertion. wbc 12.3 from 6.4 yesterday, will monitor. Pt s/p cystoscopy today with bilateral retrograde pyelogram with right ureter stent insertion Hgb remains steady. Will continue to monitor Repeat urinalysis shows 2 + protein and 2+ blood and 3595 RBC Urine culture from 11/18 negative - Abdomen/Bladder U/S: Multiple small bilateral nonobstructing renal calculi. Otherwise unremarkable examination. Xaralto still on hold. - Heparin d/mina, Xeralto restarted 20mg po daily - PSA wnl 0.2 Urology, Dr. Pisano is consulted. 2.) Chest Pain * 11/22: Pt reported pin-point chest pain today which was different in quality and location than chest pain on admission * Observe to telemetry * Aspirin 81mg PO 1x daily * c/w Metoprolol Tartrate 25mg daily HOLD SBP<100 and HR<60 * c/w Cardizem 30mg 4x a day HOLD SBP<100 and HR<60 * c/w digoxin .125mg po daily * Troponin negative x3 * ECHO (06/06/16): Left atrial enlarged, right atrium dilated, LV:60% * HgA1C 5.6 on last admission in 09/2016 * Lipid Panel wnl 5.6 on last admission in 09/2016 * TSH wnl 5.6 on last admission in 09/2016 3.) Slurred Speech Resolved 11/23: Vit B12 wnl 474, TSH wnl 0.85, Free T4 wnl 0.96 11/16: Dr Cabrales, neurology,given headache and abnormal neuro exam recommended MRI of brain w/out contrast and MRA of head/neck. hx of TIA. 11/16: Neck MRA: Widely patent bilateral common and internal carotid arteries with no significant stenosis appreciated. 11/16: Head MRA: No evidence of occlusion or definite significant stenosis. 11/16: Brain MRI: Stable age related neuro degenerate change identified without acute is over infarction mass-effect hydrocephalus or cortical edema. No suspicious extra-axial collection is encountered in the interval. Follow- up CT or MRI are available as indicated. CT head -> no intracranial hemorrhage. scattered nonspecific white matter changes. carotid dopplers -> carotid artery duplex scan does not suggest hemodynamically significant stenosis of right OR left extracranial carotid arteries neurology consulted, Dr Cabrales. Follow up recommendations. 3.) Headache 11/18: Will give xanax at bedtime as this is when patient takes it at home. 11/16: Per Dr Cabrales, neurology, will treat the headache with depakote 500 mg IV push, magnesium sulfate 2 grams IV and decadron 10 mg IV ONCE.4 5.) Hematochezia 11/23: Repeat FOBT ordered as pt reported bloody bowel movement again Negative FOBT 6.) Chronic Pain * History of spinal stenosis, extensive right rotator cuff tear * Start Percocet 1 tab 5/325 q4h PRN pain * Morphine extended release 15mg po daily 7.) History of PTSD, Anxiety, Bipolar, Depression * c/w Paxil 40mg PO daily * c/w Wellbutrin 150mg daily * c/w xanax 0.5mg PO daily as needed 8.) Hyperlipidemia * c/w Crestor 5mg POqHS * Lipid Panel in AM 9.) History of COPD * Patient is not in active exacerbation * Advair 250/50 1 puff q12 hours * Ipratropium 2 puff IH prn for wheezing/sob 10.) History of Atrial Fibrillation * c/w Metoprolol Tartrate 25mg daily Hold SBP<100 and HR<60 * c/w Cardizem 30mg QID Hold SBP<100 and HR<60 * restarted xarelto 20mg po daily, patient has been off Xarelto due possible surgery for rotator cuff * ASA 81mg po daily * HASBLED:4 * [id number] * c/w Aspirin 81mg PO daily 11.) History of Hepatitis C * not on current therapy at this time 12.) Prophylactic Treatment * SCDS bilateral * protonix 40mg po daily * heparin 5000u sc q8 being held, xeralto restarted * PT/OT treat and Eval <Ang Mora - Last Filed: 11/24/16 06:29> Objective - Vital Signs/Intake and Output Vital Signs (last 24 hours): Temp Pulse Resp BP Pulse Ox 97.8 F 59 L 20 132/87 98 11/23/16 23:55 11/24/16 00:54 11/23/16 23:55 11/23/16 23:55 11/23/16 23:55 Intake and Output: 11/23/16 11/24/16 18:59 06:59 Intake Total 300 600 Output Total 900 1700 Balance -600 -1100 - Medications Medications: Current Medications Alprazolam (Xanax) 0.5 mg PO HS [facility] Last Admin: 11/23/16 22:00 Dose: 0.5 mg Aspirin (Aspirin Chewable) 81 mg PO DAILY [facility] Last Admin: 11/23/16 09:39 Dose: 81 mg Bupropion HCl (Wellbutrin Xl) 150 mg PO DAILY [facility] Last Admin: 11/23/16 09:40 Dose: 150 mg Digoxin (Lanoxin) 0.125 mg PO DAILY@1400 [facility] Last Admin: 11/23/16 13:22 Dose: 0.125 mg Diltiazem HCl (Cardizem) 30 mg PO QID [facility] Last Admin: 11/23/16 22:00 Dose: 30 mg Docusate Sodium (Colace) 100 mg PO BID [facility] Last Admin: 11/23/16 18:08 Dose: 100 mg Ipratropium Richards (Atrovent Hfa) 2 puff IH RQ6 PRN PRN Reason: Wheezing Metoprolol Tartrate (Lopressor) 25 mg PO BID [facility] Last Admin: 11/23/16 18:09 Dose: 25 mg Morphine Sulfate (Morphine Extended Release Tab) 15 mg PO BID [facility] Last Admin: 11/23/16 18:08 Dose: 15 mg Oxycodone/Acetaminophen (Percocet 5/325 Mg Tab) 1 tab PO Q4H PRN PRN Reason: Bladder Spasm Stop: 11/25/16 14:42 Last Admin: 11/23/16 22:00 Dose: 1 tab Pantoprazole Sodium (Protonix Ec Tab) 40 mg PO DAILY [facility] Last Admin: 11/23/16 09:39 Dose: 40 mg Paroxetine HCl (Paxil) 40 mg PO DAILY [facility] Last Admin: 11/23/16 09:40 Dose: 40 mg Rivaroxaban (Xarelto) 20 mg PO DAILY [facility] Last Admin: 11/23/16 09:53 Dose: 20 mg Rosuvastatin Calcium (Crestor) 5 mg PO HS [facility] Last Admin: 11/23/16 22:00 Dose: 5 mg Fluticasone/Salmeterol (Advair Diskus 250/50) 1 puff IH RQD [facility] Last Admin: 11/23/16 08:46 Dose: 1 puff - Labs Labs: 11/23/16 06:43 11/23/16 06:43 PT 11.8 SECONDS (9.7-12.2) 11/15/16 14:17 INR 1.0 11/15/16 14:17 APTT 31 SECONDS (21-34) 11/15/16 14:17 Attending/Attestation - Attestation I have personally seen and examined this patient.: Yes I have fully participated in the care of the patient.: Yes I have reviewed all pertinent clinical information, including history, physical exam and plan: Yes Notes (Text): 11/24/16 06:27 Patient was seen and examined on 11/23/16. Exam, assessment and plan, were thoroughly gone over with the Resident. Colace 100 mg PO 2x/day was added to help with bowel movement as the Abdominal X Ray s/p right ureteral stent placement showed moderate amount of stool in the colon. Ang Mora D.O.
[2016-11-23 07:34] LABS: WHITE BLOOD COUNT 12.3 K/uL (4.8-10.8)
[2016-11-23] MEDS: Oxycodone/Acetaminophen 5/325 mg Tab PO PRN ×3 (08:39→22:00)
[2016-11-23] MEDS: Fluticasone-Salmeterol 250-50mcg Diskus IH SCH (08:46)
[2016-11-23 09:13] LABS: NEUTROPHIL 89 % (50-75); TOTAL CELLS COUNTED 100
--- NOTE | 2016-11-23 09:33 | OP ---
PROCEDURE DATE: 11/22/2016 PREOPERATIVE DIAGNOSES: Hematuria, voiding dysfunction, kidney stone disease. POSTOPERATIVE DIAGNOSES: Hematuria, voiding dysfunction, kidney stone disease. PROCEDURE: Cystoscopy, bilateral retrograde pyelograms, and insertion of right double-J stent. COMPLICATIONS: There were no complications. FINDINGS: No wound to the urethra. No strictures. is moderately visually occlusive and the ureters do show clear efflux today. I put a double-J stent on the right side. INDICATIONS FOR THE PROCEDURE: See the history and physical for further details. This is a very pleasant gentleman who has right flank pain radiating into the right groin. He says it is different than his chronic back pain and he is here now for the above testing. We discussed with him the recommendations. On the patient' s ultrasound, he has bilateral stone disease, there are small stones. He has no real hydronephrosis, but he has bilateral stone disease. He is complaining that his right side is hurting him. After today's cysto retrograde, we put a stent into the right side. On the left side, I did not see any definite hydronephrosis, even the stones are not as clear as on his imaging studies, but again, with the report that there is bilateral stone disease and right flank hurting him, we placed the stent hoping this will provide him relief. I again informed the patient that my plan is to put a stent in and that this cannot stay for ever and we will have to remove it, but perhaps this will provide him some relief. I also explained that the stent itself can cause stent pain, but this may be different than his back pain. It is difficult to tease it out because he also has underlying spinal stenosis and takes of lot of medications. DESCRIPTION OF PROCEDURE: After obtaining informed consent, the patient was brought to the operating room and routine monitors were placed. A time-out was called to confirm the patient and procedure . Films were submitted for radiologist read. We inserted the cystoscope via the urethra and is moderately visually occlusive for about 2-3 cm. All within normal limits for a 61-year-old gentleman. Procedure continued, retrograde pyelogram was performed. The orifices were clear bilaterally. Retrograde pyelogram was then performed and a double-J stent was inserted on the right side. The wire was advanced up to the kidney without difficulty. The bladder was emptied and cystoscope removed. The patient tolerated the procedure well without complication. We will get followup films and imaging and then make further plans and recommendations. There is a good amount of blood, more than what would expected for a regular cystoscope, but there are definitely no bladder lesions. I inspected very carefully looking for any bladder lesions, but I did not see any, on the dome, on the floor, or anywhere. The bleeding seems to be, if anything, from the prostatic urethra, seems to be almost inflamed, as if there is a little bit of . I did not see any other abnormalities. The patient tolerated the procedure well without complications. There is a drain inside, a 6-Hebrew multi-length catheter. The use of antibiotics would be prudent. follow up with him in the clinic later today. Etienne Pisano MD
[2016-11-23] MEDS: Morphine 15 mg SR Tab PO SCH ×2 (09:39→18:08)
[2016-11-23] MEDS: Pantoprazole 40 mg EC Tab PO SCH (09:39)
[2016-11-23] MEDS: buPROPion 150 mg/24 Hours XL Tab PO SCH (09:40)
--- NOTE | 2016-11-23 10:46 | CP.PCM.PN ---
<Jose Horton - Last Filed: 11/23/16 15:51> Subjective - Date & Time of Evaluation Date of Evaluation: 11/23/16 Time of Evaluation: 10:40 - Subjective Subjective: PGY2 Progress note- Cardiology- Dr. Barlow Pt was seen and examined at bedside. He underwent cystoscopy with placement of R double-J stent yesterday. He complains today of discomfort which he relates to this procedure. He localizes pain to his flanks and groin region. Additionally, he reports having dark, bloody urine since returning from the OR yesterday. He denies any cardiovascular complaints including chest pain and shortness of breath. Additionally he denies fever and chills. He reports that he has been nauseous since his procedure. He denies vomiting. Objective - Vital Signs/Intake and Output Vital Signs (last 24 hours): Temp Pulse Resp BP Pulse Ox 98.4 F 67 20 138/83 98 11/23/16 07:50 11/23/16 07:50 11/23/16 07:50 11/23/16 09:43 11/23/16 07:50 Intake and Output: 11/23/16 11/23/16 06:59 18:59 Intake Total 600 Output Total 1400 Balance -800 - Medications Medications: Current Medications Alprazolam (Xanax) 0.5 mg PO HS [facility] Last Admin: 11/22/16 21:47 Dose: 0.5 mg Aspirin (Aspirin Chewable) 81 mg PO DAILY [facility] Last Admin: 11/23/16 09:39 Dose: 81 mg Bupropion HCl (Wellbutrin Xl) 150 mg PO DAILY [facility] Last Admin: 11/23/16 09:40 Dose: 150 mg Digoxin (Lanoxin) 0.125 mg PO DAILY@1400 [facility] Last Admin: 11/22/16 14:02 Dose: 0.125 mg Diltiazem HCl (Cardizem) 30 mg PO QID [facility] Last Admin: 11/23/16 09:53 Dose: 30 mg Metoprolol Tartrate (Lopressor) 25 mg PO BID [facility] Last Admin: 11/23/16 09:43 Dose: 25 mg Morphine Sulfate (Morphine Extended Release Tab) 15 mg PO BID [facility] Last Admin: 11/23/16 09:39 Dose: 15 mg Oxycodone/Acetaminophen (Percocet 5/325 Mg Tab) 1 tab PO Q4H PRN PRN Reason: Bladder Spasm Stop: 11/25/16 14:42 Last Admin: 11/23/16 08:39 Dose: 1 tab Pantoprazole Sodium (Protonix Ec Tab) 40 mg PO DAILY [facility] Last Admin: 11/23/16 09:39 Dose: 40 mg Paroxetine HCl (Paxil) 40 mg PO DAILY [facility] Last Admin: 11/23/16 09:40 Dose: 40 mg Rivaroxaban (Xarelto) 20 mg PO DAILY [facility] Last Admin: 11/23/16 09:53 Dose: 20 mg Rosuvastatin Calcium (Crestor) 5 mg PO HS [facility] Last Admin: 11/22/16 21:47 Dose: 5 mg Fluticasone/Salmeterol (Advair Diskus 250/50) 1 puff IH RQD [facility] Last Admin: 11/23/16 08:46 Dose: 1 puff - Labs Labs: 11/23/16 06:43 11/23/16 06:43 PT 11.8 SECONDS (9.7-12.2) 11/15/16 14:17 INR 1.0 11/15/16 14:17 APTT 31 SECONDS (21-34) 11/15/16 14:17 - Constitutional Appears: Other (mild distress from flank and groin pain) - Eye Exam Eye Exam: EOMI, Normal appearance - ENT Exam ENT Exam: Mucous Membranes Moist - Respiratory Exam Respiratory Exam: Clear to Ausculation Bilateral. absent: Chest Wall Tenderness , Rales, Rhonchi, Wheezes - Cardiovascular Exam Cardiovascular Exam: Irregular Rhythm, +S1, +S2 - GI/Abdominal Exam GI & Abdominal Exam: Soft (appropriately tender given clinical status) - Extremities Exam Extremities Exam: absent: Calf Tenderness, Pedal Edema - Back Exam Back Exam: CVA tenderness (L), CVA tenderness (R) - Neurological Exam Neurological Exam: Alert, Awake, Oriented x3 Assessment and Plan - Assessment and Plan (Free Text) Assessment: 61 y/o male with hx of CAD, A fib, IN, and TIA who orginally presented with headache and angina, that have now resolved; found to have nephrolithiasis and now s/p cystoscopy with R double J stent placement Plan: Angina- R/O ACS No longer symptomatix, he denies chest pain or shortness of breath- resolved -continue medications asa 81mg PO daily digoxin 125mcg PO daily cardizem 30mg po qid lopressor 25mg PO bid crestor 5mg PO daily heparin 5k subq q12hrs EKG: Afib Echo: borderline LVH; EF 64% (09/2016) Trops: negative x3 HgA1C: 5.6 (09/2016) Lipid Panel: Total-156/LDL-102/HDL-44 (09/2016) TSH 1.5 (09/2016) Stress testing prior to discharge Afib Currently rate controlled continue with medications as detailed above Xarelto was held in setting of hematuria/procedure and has been restarted. Case discussed with Dr. Barlow <Kristy Barlow - Last Filed: 12/23/16 07:06> Objective - Vital Signs/Intake and Output Vital Signs (last 24 hours): Temp Pulse Resp BP Pulse Ox 97.6 F 73 18 98/61 L 95 11/26/16 16:00 11/26/16 16:00 11/26/16 16:00 11/26/16 16:00 11/26/16 16:00 - Labs Labs: 11/26/16 06:42 11/26/16 06:38 PT 11.8 SECONDS (9.7-12.2) 11/15/16 14: INR 1.0 11/15/16 14:17 APTT 31 SECONDS (21-34) 11/15/16 14:17 Attending/Attestation - Attestation I have personally seen and examined this patient.: Yes I have fully participated in the care of the patient.: Yes I have reviewed all pertinent clinical information, including history, physical exam and plan: Yes Notes (Text): 12/23/16 07:06 s/p cystoscopy with flank pain but not severe pt in good spirits rate controlled stable
[2016-11-23] MEDS: Digoxin 125 mcg (0.125 mg) Tab PO SCH (13:22)
[2016-11-23 14:24] LABS: TOTAL PSA 0.2 ng/mL (<=4.0)
[2016-11-23] MEDS ORDERED: Ipratropium 17 mcg/puff-200 puff/12.5 gm HFA Inh IH PRN (16:06)
--- NOTE | 2016-11-23 16:55 | RAD ---
HISTORY: stones COMPARISON: Chest x-ray compared with 11/15/2016 study the thread-like discoid atelectasis slightly increased at the left lung base. No more extensive are denser consolidation suggested. No effusion. FINDINGS: BOWEL: Right double-J ureteral stent in place proximal ureteral core all likely in right renal pelvis L3 level. Distal core projects over bladder. . No calculi over right ureteral stent appreciated no right renal calculi appreciated. There is moderate stool obscuring detail here. No obstruction. No free air. BONES: Iliac sided sclerotic left sacroiliac arthrosis Leftward lumbar convexity OTHER FINDINGS: None. IMPRESSION: Right ureteral stent in place as above. No right-sided urolithiasis appreciated. Moderate stool retention especially - right colon
[2016-11-24] MEDS: Oxycodone/Acetaminophen 5/325 mg Tab PO PRN ×3 (07:47→21:52)
[2016-11-24] MEDS: Fluticasone-Salmeterol 250-50mcg Diskus IH SCH (07:58)
[2016-11-24 08:00] LABS: BASO % 0.3 % (0.0-2.0); EOS # 0.1 K/uL (0.0-0.7); EOS % 0.8 % (0.0-4.0); HEMATOCRIT 42.2 % (35.0-51.0); LYMPH # 2.5 K/uL (1.0-4.3); LYMPH % 21.9 % (20.0-40.0); MEAN CELL VOLUME 90.6 fL (80.0-94.0); MEAN CORPUSCULAR HEMOGLOBIN 30.1 pg (27.0-31.0); MEAN CORPUSCULAR HGB CONC 33.2 g/dL (33.0-37.0); MEAN PLATELET VOLUME 7.4 fL (7.2-11.7); MONO # 1.1 K/uL (0.0-0.8); MONO % 9.3 % (0.0-10.0); RED CELL DISTRIBUTION WIDTH 13.2 % (11.5-14.5); WHITE BLOOD COUNT 11.4 K/uL (4.8-10.8)
[2016-11-24 08:15] LABS: CHLORIDE 99 mmol/L (98-107); SODIUM 141 mmol/L (132-148)
[2016-11-24 08:17] LABS: BILIRUBIN,TOTAL 0.8 mg/dL (0.2-1.3); CARBON DIOXIDE 26 mmol/L (22-30); GFR AFRICAN-AMERICAN > 60
[2016-11-24 08:18] LABS: ALB/GLOB RATIO 1.2 (1.0-2.1); ALKALINE PHOSPHATASE 82 U/L (38-126); ALT/SGPT 73 U/L (21-72); AST/SGOT 41 U/L (17-59); BLOOD UREA NITROGEN 14 mg/dL (9-20); CALCIUM 9.1 mg/dl (8.6-10.4); GLUCOSE,RANDOM 106 mg/dL (75-110); MAGNESIUM 2.1 mg/dL (1.6-2.3); PHOSPHOROUS 3.4 mg/dL (2.5-4.5); TOTAL PROTEIN 7.3 g/dL (6.3-8.3)
[2016-11-24] MEDS: buPROPion 150 mg/24 Hours XL Tab PO SCH (09:20)
[2016-11-24] MEDS: Morphine 15 mg SR Tab PO SCH ×2 (09:21→18:18)
--- NOTE | 2016-11-24 10:24 | CP.PCM.PN ---
<Justin Kramer - Last Filed: 11/24/16 18:58> Subjective - Date & Time of Evaluation Date of Evaluation: 11/24/16 Time of Evaluation: 07:30 - Subjective Subjective: PGY-[address] Ang Mora's Service: Patient was seen and examined at beside today in NAD. POD#2 cysto with right nephro ureteral stent placement. No overnight events. Reports cessation of n/v. Able to sleep comfortably through the night. Urine collected remains darker than usual in color. Was able to have a BM in the AM; reported passing BM exacerbated the generalized pain. Chest pain has further decreased in frequency since yesterday; down to once every two hours. Quality unchanged. Reports no change in headache, back pain. Reports improvement in lower abdominal pain. Admits fatigue, dizziness on exertion. Denies f/c, c/d, chest pain, palpitations , SOB. Objective - Vital Signs/Intake and Output Vital Signs (last 24 hours): Temp Pulse Resp BP Pulse Ox 98.5 F 59 L 20 121/79 96 11/24/16 08:11 11/24/16 08:11 11/24/16 08:11 11/24/16 09:21 11/24/16 08:11 Intake and Output: 11/24/16 11/24/16 06:59 18:59 Intake Total 840 Output Total 1700 Balance -860 - Medications Medications: Current Medications Alprazolam (Xanax) 0.5 mg PO HS [facility] Last Admin: 11/23/16 22:00 Dose: 0.5 mg Aspirin (Aspirin Chewable) 81 mg PO DAILY [facility] Last Admin: 11/24/16 09:19 Dose: 81 mg Bupropion HCl (Wellbutrin Xl) 150 mg PO DAILY [facility] Last Admin: 11/24/16 09:20 Dose: 150 mg Clopidogrel Bisulfate (Plavix) 75 mg PO DAILY [facility] Last Admin: 11/24/16 09:20 Dose: 75 mg Digoxin (Lanoxin) 0.125 mg PO DAILY@1400 [facility] Last Admin: 11/23/16 13:22 Dose: 0.125 mg Diltiazem HCl (Cardizem) 30 mg PO QID [facility] Last Admin: 11/24/16 09:20 Dose: 30 mg Docusate Sodium (Colace) 100 mg PO BID [facility] Last Admin: 11/24/16 09:19 Dose: 100 mg Famotidine (Pepcid) 20 mg PO BID [facility] Last Admin: 11/24/16 09:20 Dose: 20 mg Ipratropium [place] (Atrovent Hfa) 2 puff IH RQ6 PRN PRN Reason: Wheezing Metoprolol Tartrate (Lopressor) 25 mg PO BID [facility] Last Admin: 11/24/16 09:21 Dose: 25 mg Morphine Sulfate (Morphine Extended Release Tab) 15 mg PO BID [facility] Last Admin: 11/24/16 09:21 Dose: 15 mg Oxycodone/Acetaminophen (Percocet 5/325 Mg Tab) 1 tab PO Q4H PRN PRN Reason: Bladder Spasm Stop: 11/25/16 14:42 Last Admin: 11/24/16 07:47 Dose: 1 tab Paroxetine HCl (Paxil) 40 mg PO DAILY [facility] Last Admin: 11/24/16 09:19 Dose: 40 mg Rosuvastatin Calcium (Crestor) 5 mg PO HS [facility] Last Admin: 11/23/16 22:00 Dose: 5 mg Fluticasone/Salmeterol (Advair Diskus 250/50) 1 puff IH RQD [facility] Last Admin: 11/24/16 07:58 Dose: 1 puff - Labs Labs: 11/24/16 07:53 11/24/16 07:53 PT 11.8 SECONDS (9.7-12.2) 11/15/16 14:17 INR 1.0 11/15/16 14:17 APTT 31 SECONDS (21-34) 11/15/16 14:17 - Constitutional Appears: Well, No Acute Distress - Head Exam Head Exam: NORMAL INSPECTION - Eye Exam Eye Exam: Normal appearance - ENT Exam ENT Exam: Mucous Membranes Moist - Neck Exam Neck Exam: Normal Inspection - Respiratory Exam Respiratory Exam: Clear to Ausculation Bilateral, NORMAL BREATHING PATTERN - Cardiovascular Exam Cardiovascular Exam: REGULAR RHYTHM, +S1, +S2. absent: Murmur - GI/Abdominal Exam GI & Abdominal Exam: Soft, Normal Bowel Sounds Additional comments: diffuse tenderness to deep palpations, most sever in suprapubic region - Extremities Exam Extremities Exam: Normal Inspection. absent: Tenderness - Back Exam Back Exam: absent: CVA tenderness (L), CVA tenderness (R) - Neurological Exam Neurological Exam: Alert, Awake - Psychiatric Exam Psychiatric exam: Normal Affect, Normal Mood - Skin Skin Exam: Dry, Intact, Normal Color, Warm Assessment and Plan - Assessment and Plan (Free Text) Assessment: 1.) Hematuria Patient will be instructed to see Urologist Hunter Pisano in his office to follow up right ureter stent placement. 11/24: Still c/o hematuria. H/H stable. Xeralto discontinued per cardiology secondary to history of falls; plavix 75mg po daily started. 11/23: Pt continuing to have hematuria s/p right ureter stent insertion. wbc 12.3 from 6.4 yesterday, will monitor. 11/22: Pt s/p cystoscopy today with bilateral retrograde pyelogram with right ureter stent insertion Repeat urinalysis shows 2 + protein and 2+ blood and 3595 RBC Urine culture from 11/18 negative Abdomen/Bladder U/S: Multiple small bilateral nonobstructing renal calculi. Otherwise unremarkable examination. Xaralto still on hold. PSA wnl 0.2 Urology, Dr. Pisano is consulted. 2.) Chest Pain 11/24: Chest pain most likely musculoskeletal. Full workup has been done as described below. * 11/22: Pt reported pin-point chest pain today which was different in quality and location than chest pain on admission * Observe to telemetry * c/w home med Aspirin 81mg PO 1x daily * c/w home med Metoprolol Tartrate 25mg daily HOLD SBP<100 and HR<60 * c/w home med Cardizem 30mg 4x a day HOLD SBP<100 and HR<60 * c/w home med digoxin .125mg po daily * Troponin negative x3 * ECHO (10/20/16): Mild concentric left ventricular hypertrophy. Left ventricular systolic function normal. EF 64% * ECHO (06/06/16): Left atrium mildly dilated, right atrium mildly dilated, LVEF: 60% * HgA1C 5.6 on last admission in 09/2016 * Lipid Panel wnl 5.6 on last admission in 09/2016 * TSH wnl 5.6 on last admission in 09/2016 3.) Slurred Speech 11/24: There were no findings for TIA upon workup. Patient asymptomatic. We will monitor for symptoms. 11/23: Vit B12 wnl 474, TSH wnl 0.85, Free T4 wnl 0.96 11/16: Neck MRA: Widely patent bilateral common and internal carotid arteries with no significant stenosis appreciated. 11/16: Head MRA: No evidence of occlusion or definite significant stenosis. 11/16: Brain MRI: Stable age related neuro degenerate change identified without acute is over infarction mass-effect hydrocephalus or cortical edema. No suspicious extra-axial collection is encountered in the interval. Follow- up CT or MRI are available as indicated. 11/16: Dr Cabrales, neurology,given headache and abnormal neuro exam recommended MRI of brain w/out contrast and MRA of head/neck. hx of TIA. CT head -> no intracranial hemorrhage. scattered nonspecific white matter changes. carotid dopplers -> carotid artery duplex scan does not suggest hemodynamically significant stenosis of right OR left extracranial carotid arteries neurology consulted, Dr Cabrales. Follow up recommendations. 3.) Headache 11/24: Pt still c/o of mild headache. Will continue to investigate cause/ remedy. Will monitor for symptoms. Neurologist, Dr Cabrales recommends follow up outpatient with Dr Roc Santos and to discharge with tramadol 25mg qd prn in the interim. 11/18: Will give xanax at bedtime as this is when patient takes it at home and could help mitigate his symptoms. 11/16: Per Dr Cabrales, neurology, will treat the headache with depakote 500 mg IV push, magnesium sulfate 2 grams IV and decadron 10 mg IV ONCE.4. Patient reported only mild improvement in symptoms. 5.) Hematochezia 11/23: Repeat FOBT ordered as pt reported bloody bowel movement again Negative FOBTx1 6.) Chronic Pain * History of spinal stenosis, extensive right rotator cuff tear * Start Percocet 1 tab 5/325 q4h PRN pain * Morphine extended release 15mg po daily 7.) History of PTSD, Anxiety, Bipolar, Depression * c/w home med Paxil 40mg PO daily * c/w home med Wellbutrin 150mg daily * c/w home med xanax 0.5mg PO daily as needed 8.) Hyperlipidemia * c/w home med Crestor 5mg POqHS 9.) History of COPD * Patient is not in active exacerbation * Advair 250/50 1 puff q12 hours * Ipratropium 2 puff IH prn for wheezing/sob 10.) History of Atrial Fibrillation 11/24: Per cardiology, xaralto has been discontinued secondary to hx of falls. Patient currently on aspirin 81mg daily po and plavix 75mg daily po. * c/w home med Metoprolol Tartrate 25mg daily Hold SBP<100 and HR<60 * c/w home med Cardizem 30mg QID Hold SBP<100 and HR<60 * c/w home med digoxin .125mg po daily * c/w home med ASA 81mg po daily * HASBLED:2 -> 4.1% risk; moderate risk for major bleeding - anticoagulation can be considered * [id number]:3 -> 3.2% risk; moderate-high risk for stroke - should be an anticoagulation candidate 11.) History of Hepatitis C * not on current therapy at this time - will instruct patient to follow up for outpatient therapy in our [facility] clinic upon discharge 12.) Prophylactic Treatment * SCDS bilateral * pepcid 20mg po bid * heparin 5000u sc q8 being held * PT/OT treat and Eval * heart healthy diet <Ang Mora - Last Filed: 11/24/16 19:37> Objective - Vital Signs/Intake and Output Vital Signs (last 24 hours): Temp Pulse Resp BP Pulse Ox 98.1 F 61 20 120/81 97 11/24/16 15:24 11/24/16 15:30 11/24/16 15:24 11/24/16 18:21 11/24/16 15:24 Intake and Output: 11/24/16 11/25/16 18:59 06:59 Intake Total 350 Output Total 1100 Balance -750 - Medications Medications: Current Medications Alprazolam (Xanax) 0.5 mg PO HS [facility] Last Admin: 11/23/16 22:00 Dose: 0.5 mg Aspirin (Aspirin Chewable) 81 mg PO DAILY [facility] Last Admin: 11/24/16 09:19 Dose: 81 mg Bupropion HCl (Wellbutrin Xl) 150 mg PO DAILY [facility] Last Admin: 11/24/16 09:20 Dose: 150 mg Clopidogrel Bisulfate (Plavix) 75 mg PO DAILY [facility] Last Admin: 11/24/16 09:20 Dose: 75 mg Digoxin (Lanoxin) 0.125 mg PO DAILY@1400 [facility] Last Admin: 11/24/16 13:15 Dose: 0.125 mg Diltiazem HCl (Cardizem) 30 mg PO QID [facility] Last Admin: 11/24/16 18:18 Dose: 30 mg Docusate Sodium (Colace) 100 mg PO BID [facility] Last Admin: 11/24/16 18:18 Dose: 100 mg Famotidine (Pepcid) 20 mg PO BID [facility] Last Admin: 11/24/16 18:18 Dose: 20 mg Ipratropium [place] (Atrovent Hfa) 2 puff IH RQ6 PRN PRN Reason: Wheezing Metoprolol Tartrate (Lopressor) 25 mg PO BID [facility] Last Admin: 11/24/16 18:21 Dose: 25 mg Morphine Sulfate (Morphine Extended Release Tab) 15 mg PO BID [facility] Last Admin: 11/24/16 18:18 Dose: 15 mg Ondansetron HCl (Zofran Inj) 4 mg IVP DAILY@ONCE PRN PRN Reason: Nausea/Vomiting Last Admin: 11/24/16 14:04 Dose: 4 mg Oxycodone/Acetaminophen (Percocet 5/325 Mg Tab) 1 tab PO Q4H PRN PRN Reason: Bladder Spasm Stop: 11/25/16 14:42 Last Admin: 11/24/16 13:15 Dose: 1 tab Paroxetine HCl (Paxil) 40 mg PO DAILY [facility] Last Admin: 11/24/16 09:19 Dose: 40 mg Rosuvastatin Calcium (Crestor) 5 mg PO HS [facility] Last Admin: 11/23/16 22:00 Dose: 5 mg Fluticasone/Salmeterol (Advair Diskus 250/50) 1 puff IH RQD [facility] Last Admin: 11/24/16 07:58 Dose: 1 puff - Labs Labs: 11/24/16 07:53 11/24/16 07:53 PT 11.8 SECONDS (9.7-12.2) 11/15/16 14:17 INR 1.0 11/15/16 14:17 APTT 31 SECONDS (21-34) 11/15/16 14:17 Attending/Attestation - Attestation I have personally seen and examined this patient.: Yes I have fully participated in the care of the patient.: Yes I have reviewed all pertinent clinical information, including history, physical exam and plan: Yes Notes (Text): 11/24/16 19:32 Patient was seen and examined at 6 PM 11/24/16. Exam, assessment and plan were thoroughly gone over with ther resident. Patient explained that he was experiencing a lot of flank pain on the right when he stands up to urinate. Toradol 30 mg IV x 1 dose was ordered for him as I explained to him that this would help with the inflammation that was likely causing his pain s/p cytoscopy with right ureteral stent placement. He still has not had a bowel movement despite the Colace. Therefore Dulcolax 5 mg PO x 1 dose was ordered. If there is NO bowel movement by 11/25/16 then Fleet Enema will be ordered. Explained to him about Neurology's recommendation about the use of Tramadol for his heaches and patient stated that the Tramadol does not help him and makes him feel worse. Therefore, I explained to him that he will have to follow up with Neurologist Dr. Roc Santos as an outpatient. Please note that at the time of my exam, patient was in no distress and did not appear to be any pain. As long as the HgB/Hct are stable and if ok with Dr. Jarred Pisano, we will discharge patient 11/25/16. This was also explained to the patient. Ang Mora D.O.
--- NOTE | 2016-11-24 10:58 | CP.PCM.PN ---
<Shin Desir - Last Filed: 11/24/16 10:58> Subjective - Date & Time of Evaluation Date of Evaluation: 11/24/16 Time of Evaluation: 10:55 - Subjective Subjective: Cardiology progress note. Attending: Dr. Barlow Pt seen and examined at bedside. No acute distress. No events overnight. Pt still having hematuria and headache. Will have some chest pain intermittently. No fevers, chills, vomiting, diarrhea. Will stop xarelto. Objective - Vital Signs/Intake and Output Vital Signs (last 24 hours): Temp Pulse Resp BP Pulse Ox 98.5 F 59 L 20 121/79 96 11/24/16 08:11 11/24/16 08:11 11/24/16 08:11 11/24/16 09:21 11/24/16 08:11 Intake and Output: 11/24/16 11/24/16 06:59 18:59 Intake Total 840 Output Total 1700 Balance -860 - Medications Medications: Current Medications Alprazolam (Xanax) 0.5 mg PO HS [facility] Last Admin: 11/23/16 22:00 Dose: 0.5 mg Aspirin (Aspirin Chewable) 81 mg PO DAILY [facility] Last Admin: 11/24/16 09:19 Dose: 81 mg Bupropion HCl (Wellbutrin Xl) 150 mg PO DAILY [facility] Last Admin: 11/24/16 09:20 Dose: 150 mg Clopidogrel Bisulfate (Plavix) 75 mg PO DAILY [facility] Last Admin: 11/24/16 09:20 Dose: 75 mg Digoxin (Lanoxin) 0.125 mg PO DAILY@1400 [facility] Last Admin: 11/23/16 13:22 Dose: 0.125 mg Diltiazem HCl (Cardizem) 30 mg PO QID [facility] Last Admin: 11/24/16 09:20 Dose: 30 mg Docusate Sodium (Colace) 100 mg PO BID [facility] Last Admin: 11/24/16 09:19 Dose: 100 mg Famotidine (Pepcid) 20 mg PO BID [facility] Last Admin: 11/24/16 09:20 Dose: 20 mg Ipratropium [place] (Atrovent Hfa) 2 puff IH RQ6 PRN PRN Reason: Wheezing Metoprolol Tartrate (Lopressor) 25 mg PO BID [facility] Last Admin: 07/26/17 09:21 Dose: 25 mg Morphine Sulfate (Morphine Extended Release Tab) 15 mg PO BID [facility] Last Admin: 11/24/16 09:21 Dose: 15 mg Oxycodone/Acetaminophen (Percocet 5/325 Mg Tab) 1 tab PO Q4H PRN PRN Reason: Bladder Spasm Stop: 11/25/16 14:42 Last Admin: 11/24/16 07:47 Dose: 1 tab Paroxetine HCl (Paxil) 40 mg PO DAILY [facility] Last Admin: 11/24/16 09:19 Dose: 40 mg Rosuvastatin Calcium (Crestor) 5 mg PO HS [facility] Last Admin: 11/23/16 22:00 Dose: 5 mg Fluticasone/Salmeterol (Advair Diskus 250/50) 1 puff IH RQD [facility] Last Admin: 11/24/16 07:58 Dose: 1 puff - Labs Labs: 11/24/16 07:53 11/24/16 07:53 PT 11.8 SECONDS (9.7-12.2) 11/15/16 14:17 INR 1.0 11/15/16 14:17 APTT 31 SECONDS (21-34) 11/15/16 14:17 - Constitutional Appears: Non-toxic, No Acute Distress - Head Exam Head Exam: ATRAUMATIC, NORMAL INSPECTION, NORMOCEPHALIC - Eye Exam Eye Exam: EOMI - ENT Exam ENT Exam: Mucous Membranes Moist - Neck Exam Neck Exam: Normal Inspection - Respiratory Exam Respiratory Exam: NORMAL BREATHING PATTERN. absent: Respiratory Distress - Cardiovascular Exam Cardiovascular Exam: +S1, +S2 - GI/Abdominal Exam GI & Abdominal Exam: Soft, Normal Bowel Sounds. absent: Tenderness - Extremities Exam Extremities Exam: Full ROM - Back Exam Back Exam: NORMAL INSPECTION - Neurological Exam Neurological Exam: Alert, Awake, CN II-XII Intact - Skin Skin Exam: Dry, Intact, Normal Color, Warm Assessment and Plan - Assessment and Plan (Free Text) Assessment: This is a 61 year old male with past medical hx of CAD, A fib, MT, and TIA who initially presented with headache and angina chest pain- R/O ACS -patient still having intermittent chest pain -continue medications asa 81mg PO daily digoxin 125mcg PO daily cardizem 30mg po qid lopressor 25mg PO bid crestor 5mg PO daily will add plavix 75 daily EKG: Afib Echo: borderline LVH; EF 64% (09/2016) Trops: negative x3 HgA1C: 5.6 (09/2016) Lipid Panel: Total-156/LDL-102/HDL-44 (09/2016) TSH 1.5 (09/2016) Stress testing prior to discharge Afib Currently rate controlled continue with medications as detailed above Xarelto was held in setting of hematuria/procedure will continue to dc xarelto in light of pt's hx of falls will continue asa and plavix Case discussed with Dr. Barlow <Kristy Barlow - Last Filed: 12/23/16 07:04> Objective - Vital Signs/Intake and Output Vital Signs (last 24 hours): Temp Pulse Resp BP Pulse Ox 97.6 F 73 18 98/61 L 95 11/26/16 16:00 11/26/16 16:00 11/26/16 16:00 11/26/16 16:00 11/26/16 16:00 - Labs Labs: 11/26/16 06:42 11/26/16 06:38 PT 11.8 SECONDS (9.7-12.2) 11/15/16 14:17 INR 1.0 11/15/16 14:17 APTT 31 SECONDS (21-34) 11/15/16 14:17 Attending/Attestation - Attestation I have personally seen and examined this patient.: Yes I have fully participated in the care of the patient.: Yes I have reviewed all pertinent clinical information, including history, physical exam and plan: Yes Notes (Text): 12/23/16 07:03 off xarelto nl ef and 61 years old will add plavix continue baby asa
[2016-11-24] MEDS: Digoxin 125 mcg (0.125 mg) Tab PO SCH (13:15)
[2016-11-24] MEDS ORDERED: Bisacodyl 5mg EC Tab PO ONE (18:18)
[2016-11-25] MEDS: Oxycodone/Acetaminophen 5/325 mg Tab PO PRN ×3 (04:36→22:22)
[2016-11-25 06:19] LABS: BASO # 0.1 K/uL (0.0-0.2); BASO % 0.6 % (0.0-2.0); EOS # 0.2 K/uL (0.0-0.7); EOS % 1.8 % (0.0-4.0); HEMATOCRIT 39.2 % (35.0-51.0); MEAN CORPUSCULAR HEMOGLOBIN 30.7 pg (27.0-31.0); MEAN CORPUSCULAR HGB CONC 33.7 g/dL (33.0-37.0); MEAN PLATELET VOLUME 7.4 fL (7.2-11.7); MONO # 1.2 K/uL (0.0-0.8); MONO % 12.6 % (0.0-10.0); RED CELL DISTRIBUTION WIDTH 13.4 % (11.5-14.5); WHITE BLOOD COUNT 9.2 K/uL (4.8-10.8)
[2016-11-25 06:30] LABS: ALB/GLOB RATIO 1.4 (1.0-2.1); ALKALINE PHOSPHATASE 65 U/L (38-126); ALT/SGPT 62 U/L (21-72); AST/SGOT 36 U/L (17-59); BILIRUBIN,TOTAL 0.3 mg/dL (0.2-1.3); BLOOD UREA NITROGEN 18 mg/dL (9-20); CARBON DIOXIDE 28 mmol/L (22-30); CHLORIDE 99 mmol/L (98-107); GFR AFRICAN-AMERICAN > 60; GLUCOSE,RANDOM 99 mg/dL (75-110); MAGNESIUM 2.1 mg/dL (1.6-2.3); POTASSIUM 4.3 mmol/L (3.6-5.2); SODIUM 140 mmol/L (132-148); TOTAL PROTEIN 6.2 g/dL (6.3-8.3)
[2016-11-25] MEDS: Fluticasone-Salmeterol 250-50mcg Diskus IH SCH (07:45)
[2016-11-25] MEDS: Morphine 15 mg SR Tab PO SCH ×2 (09:40→17:49)
[2016-11-25] MEDS: buPROPion 150 mg/24 Hours XL Tab PO SCH (09:42)
[2016-11-25] MEDS ORDERED: Magnesium Hydroxide Susp 30 ml UD PO ONE (11:59)
--- NOTE | 2016-11-25 12:01 | PCM.URO ---
Urology Progress Note - Subjective Abdominal Pain: Yes (will obtain xray and ultrasound) - Objective Lab Results Last 24 Hours: Laboratory Results - last 24 hr 11/25/16 11/25/16 06:07 06:07 WBC 9.2 RBC 4.31 L Hgb 13.2 Hct 39.2 MCV 91.0 MCH 30.7 MCHC 33.7 RDW 13.4 Plt Count 186 MPV 7.4 Neut % (Auto) 53.0 Lymph % (Auto) 32.0 [place] % (Auto) 12.6 H Eos % (Auto) 1.8 Baso % (Auto) 0.6 Neut # 4.9 Lymph # 3.0 [place] # 1.2 H Eos # 0.2 Baso # 0.1 Sodium 140 Potassium 4.3 Chloride 99 Carbon Dioxide 28 Anion Gap 16 BUN 18 Creatinine 0.9 Est GFR ( Amer) > 60 Est GFR (Non-Af Amer) > 60 Random Glucose 99 Calcium 9.0 Phosphorus 4.0 Magnesium 2.1 Total Bilirubin 0.3 AST 36 ALT 62 Alkaline Phosphatase 65 Total Protein 6.2 L Albumin 3.6 Globulin 2.6 Albumin/Globulin Ratio 1.4 Intake & Output: Intake & Output 11/24/16 11/25/16 11/25/16 18:59 06:59 18:59 Intake Total 350 600 Output Total 1100 400 Balance -750 200 Intake: Oral 350 600 Output: Urine 1100 400 Urine, Voided 1100 400 Other: # Bowel Movements 0 Vital Signs: Vital Signs - 24 hr 11/24/16 11/24/16 11/24/16 15:24 15:30 18:21 Temperature 98.1 F Pulse Rate 60 61 Respiratory 20 Rate Blood Pressure 118/68 120/81 O2 Sat by Pulse 97 Oximetry 11/24/16 11/25/16 11/25/16 23:55 07:25 09:42 Temperature 98.1 F 97.9 F Pulse Rate 62 63 Respiratory 20 18 Rate Blood Pressure 95/64 L 115/73 121/79 O2 Sat by Pulse 97 97 Oximetry 11/25/16 09:46 Temperature Pulse Rate 67 Respiratory Rate Blood Pressure 121/79 O2 Sat by Pulse Oximetry
[2016-11-25] MEDS: Digoxin 125 mcg (0.125 mg) Tab PO SCH (13:37)
--- NOTE | 2016-11-25 14:04 | US ---
PROCEDURE: Ultrasound of the Bladder HISTORY: retention COMPARISON: None. TECHNIQUE: Sonographic evaluation of the bladder was performed. FINDINGS: Stent is noted in the urinary bladder. Bilateral ureteral jets were identified. Pre- Void volume: 81.5 cc. No postvoid residual noted. IMPRESSION: Stent is noted in the urinary bladder. Bilateral ureteral jets were identified. Pre- Void volume: 81.5 cc. No postvoid residual noted.
--- NOTE | 2016-11-25 15:22 | CP.PCM.PN ---
<Shin Desir - Last Filed: 11/25/16 15:22> Subjective - Date & Time of Evaluation Date of Evaluation: 11/25/16 Time of Evaluation: 15:20 - Subjective Subjective: Cardiology progress note. Attending: Dr. Barlow Pt seen and examined at bedside. No acute distress. No events overnight. Pt complaining of some urinary retention and pain when he attempts to urinate. No fevers, chills, vomiting, diarrhea. Pt has been constipated. Chest pain has become less frequent. He has not been able to sleep. Objective - Vital Signs/Intake and Output Vital Signs (last 24 hours): Temp Pulse Resp BP Pulse Ox 97.9 F 61 18 121/79 97 11/25/16 07:25 11/25/16 11:59 11/25/16 07:25 11/25/16 09:46 11/25/16 07:25 Intake and Output: 11/25/16 11/25/16 06:59 18:59 Intake Total 600 350 Output Total 400 100 Balance 200 250 - Medications Medications: Current Medications Alprazolam (Xanax) 0.5 mg PO HS [facility] Last Admin: 11/24/16 21:48 Dose: 0.5 mg Aspirin (Aspirin Chewable) 81 mg PO DAILY [facility] Last Admin: 11/25/16 09:40 Dose: 81 mg Bupropion HCl (Wellbutrin Xl) 150 mg PO DAILY [facility] Last Admin: 11/25/16 09:42 Dose: 150 mg Clopidogrel Bisulfate (Plavix) 75 mg PO DAILY [facility] Last Admin: 11/25/16 09:40 Dose: 75 mg Digoxin (Lanoxin) 0.125 mg PO DAILY@1400 [facility] Last Admin: 11/25/16 13:37 Dose: 0.125 mg Diltiazem HCl (Cardizem) 30 mg PO QID [facility] Last Admin: 11/25/16 13:37 Dose: 30 mg Docusate Sodium (Colace) 100 mg PO BID [facility] Last Admin: 11/25/16 09:40 Dose: 100 mg Famotidine (Pepcid) 20 mg PO BID [facility] Last Admin: 11/25/16 09:40 Dose: 20 mg Ipratropium [place] (Atrovent Hfa) 2 puff IH RQ6 PRN PRN Reason: Wheezing Metoprolol Tartrate (Lopressor) 25 mg PO BID [facility] Last Admin: 11/25/16 09:42 Dose: 25 mg Morphine Sulfate (Morphine Extended Release Tab) 15 mg PO BID [facility] Last Admin: 11/25/16 09:40 Dose: 15 mg Ondansetron HCl (Zofran Inj) 4 mg IVP DAILY@ONCE PRN PRN Reason: Nausea/Vomiting Last Admin: 11/25/16 13:37 Dose: 4 mg Paroxetine HCl (Paxil) 40 mg PO DAILY [facility] Last Admin: 11/25/16 09:41 Dose: 40 mg Rosuvastatin Calcium (Crestor) 5 mg PO HS [facility] Last Admin: 11/24/16 21:48 Dose: 5 mg Fluticasone/Salmeterol (Advair Diskus 250/50) 1 puff IH RQD [facility] Last Admin: 11/25/16 07:45 Dose: 1 puff Tamsulosin HCl (Flomax) 0.4 mg PO DAILY [facility] Last Admin: 11/25/16 10:49 Dose: 0.4 mg - Labs Labs: 11/25/16 06:07 11/25/16 06:07 PT 11.8 SECONDS (9.7-12.2) 11/15/16 14:17 INR 1.0 11/15/16 14:17 APTT 31 SECONDS (21-34) 11/15/16 14:17 - Constitutional Appears: Non-toxic, No Acute Distress - Head Exam Head Exam: ATRAUMATIC, NORMAL INSPECTION, NORMOCEPHALIC - Eye Exam Eye Exam: EOMI - ENT Exam ENT Exam: Mucous Membranes Moist - Neck Exam Neck Exam: Full ROM, Normal Inspection - Respiratory Exam Respiratory Exam: NORMAL BREATHING PATTERN. absent: Respiratory Distress - Cardiovascular Exam Cardiovascular Exam: +S1, +S2 - GI/Abdominal Exam GI & Abdominal Exam: Soft, Normal Bowel Sounds. absent: Tenderness - Extremities Exam Extremities Exam: Full ROM, Normal Inspection - Neurological Exam Neurological Exam: Alert, Awake, Oriented x3 - Psychiatric Exam Psychiatric exam: Normal Affect, Normal Mood - Skin Skin Exam: Dry, Intact, Normal Color, Warm Assessment and Plan - Assessment and Plan (Free Text) Assessment: This is a 61 year old male with past medical hx of CAD, A fib, PA, and TIA who initially presented with headache and angina chest pain- R/O ACS -patient still having intermittent chest pain -continue medications asa 81mg PO daily digoxin 125mcg PO daily cardizem 30mg po qid lopressor 25mg PO bid crestor 5mg PO daily will add plavix 75 daily EKG: Afib Echo: borderline LVH; EF 64% (09/2016) Trops: negative x3 HgA1C: 5.6 (09/2016) Lipid Panel: Total-156/LDL-102/HDL-44 (09/2016) TSH 1.5 (09/2016) Afib Currently rate controlled continue with medications as detailed above Xarelto was held in setting of hematuria/procedure will continue to dc xarelto in light of pt's hx of falls will continue asa and plavix Case discussed with Dr. Barlow <Kristy Barlow - Last Filed: 12/23/16 07:02> Objective - Vital Signs/Intake and Output Vital Signs (last 24 hours): Temp Pulse Resp BP Pulse Ox 97.6 F 73 18 98/61 L 95 11/26/16 16:00 11/26/16 16:00 11/26/16 16:00 11/26/16 16:00 11/26/16 16:00 - Labs Labs: 11/26/16 06:42 11/26/16 06:38 PT 11.8 SECONDS (9.7-12.2) 11/15/16 14: INR 1.0 11/15/16 14:17 APTT 31 SECONDS (21-34) 11/15/16 14:17 Attending/Attestation - Attestation I have personally seen and examined this patient.: Yes I have fully participated in the care of the patient.: Yes I have reviewed all pertinent clinical information, including history, physical exam and plan: Yes Notes (Text): 12/23/16 07:01 no events overnight always in great spirits awaiting urology input cannot anticoaglate still hematuria is rate controlled very well
--- NOTE | 2016-11-25 16:47 | RAD ---
HISTORY: urolithiasis COMPARISON: Abdominal radiographs performed 11/23/16 FINDINGS: Right ureteral stent. Numerous small calcifications in the left upper quadrant in the expected location of the kidney. No coarse calcifications evident on the right. Moderate constipation. Nonobstructive bowel gas pattern. Osseous demineralization. Scoliosis. Multilevel degenerative changes of the spine. Degenerative changes of the pelvis/hips. IMPRESSION: Right ureteral stent. No coarse calcifications evident on the right. Numerous small calcifications in the left upper quadrant in the expected location of the kidney. Moderate constipation.
--- NOTE | 2016-11-25 18:29 | CP.PCM.PN ---
<Justin Kramer - Last Filed: 11/25/16 18:23> Subjective - Date & Time of Evaluation Date of Evaluation: 11/25/16 Time of Evaluation: 16:00 - Subjective Subjective: PGY-[address] Ang Mora's Service: Patient was seen and examined at bedside. Patient had a friend visiting him today. Patient complained of urinary retention. He stated that attempts to urinate cause him pelvic pain and that only very small amounts of urine are produced which is still a dark red color. He also complained of constipation, he states his last bowel movement was 3 days ago. He also says he has been nauseous but denied vomiting today. He complained of his chronic headache and back pain as well. He denied chest pain, sob, bleeding, fever, chills. Objective - Vital Signs/Intake and Output Vital Signs (last 24 hours): Temp Pulse Resp BP Pulse Ox 97.9 F 64 18 118/70 96 11/25/16 15:47 11/25/16 15:47 11/25/16 15:47 11/25/16 17:51 11/25/16 15:47 Intake and Output: 11/25/16 11/25/16 06:59 18:59 Intake Total 600 350 Output Total 400 100 Balance 200 250 - Medications Medications: Current Medications Alprazolam (Xanax) 0.5 mg PO HS [facility] Last Admin: 11/24/16 21:48 Dose: 0.5 mg Aspirin (Aspirin Chewable) 81 mg PO DAILY [facility] Last Admin: 11/25/16 09:40 Dose: 81 mg Bupropion HCl (Wellbutrin Xl) 150 mg PO DAILY [facility] Last Admin: 11/25/16 09:42 Dose: 150 mg Clopidogrel Bisulfate (Plavix) 75 mg PO DAILY [facility] Last Admin: 11/25/16 09:40 Dose: 75 mg Digoxin (Lanoxin) 0.125 mg PO DAILY@1400 [facility] Last Admin: 11/25/16 13:37 Dose: 0.125 mg Diltiazem HCl (Cardizem) 30 mg PO QID [facility] Last Admin: 11/25/16 17:49 Dose: 30 mg Docusate Sodium (Colace) 100 mg PO BID [facility] Last Admin: 11/25/16 17:48 Dose: 100 mg Famotidine (Pepcid) 20 mg PO BID [facility] Last Admin: 11/25/16 17:48 Dose: 20 mg Ipratropium [place] (Atrovent Hfa) 2 puff IH RQ6 PRN PRN Reason: Wheezing Metoprolol Tartrate (Lopressor) 25 mg PO BID [facility] Last Admin: 11/25/16 17:51 Dose: 25 mg Morphine Sulfate (Morphine Extended Release Tab) 15 mg PO BID [facility] Last Admin: 11/25/16 17:49 Dose: 15 mg Ondansetron HCl (Zofran Inj) 4 mg IVP DAILY@ONCE PRN PRN Reason: Nausea/Vomiting Last Admin: 11/25/16 13:37 Dose: 4 mg Paroxetine HCl (Paxil) 40 mg PO DAILY [facility] Last Admin: 11/25/16 09:41 Dose: 40 mg Rosuvastatin Calcium (Crestor) 5 mg PO HS [facility] Last Admin: 11/24/16 21:48 Dose: 5 mg Fluticasone/Salmeterol (Advair Diskus 250/50) 1 puff IH RQD [facility] Last Admin: 11/25/16 07:45 Dose: 1 puff Tamsulosin HCl (Flomax) 0.4 mg PO DAILY [facility] Last Admin: 11/25/16 10:49 Dose: 0.4 mg - Labs Labs: 11/25/16 06:07 11/25/16 06:07 PT 11.8 SECONDS (9.7-12.2) 11/15/16 14:17 INR 1.0 11/15/16 14:17 APTT 31 SECONDS (21-34) 11/15/16 14:17 - Constitutional Appears: No Acute Distress - Head Exam Head Exam: NORMAL INSPECTION - Eye Exam Eye Exam: Normal appearance - ENT Exam ENT Exam: Mucous Membranes Moist - Neck Exam Neck Exam: Normal Inspection - Respiratory Exam Respiratory Exam: Clear to Ausculation Bilateral, NORMAL BREATHING PATTERN - Cardiovascular Exam Cardiovascular Exam: REGULAR RHYTHM, +S1, +S2. absent: Murmur - GI/Abdominal Exam GI & Abdominal Exam: Soft, Tenderness, Normal Bowel Sounds Additional comments: ttp in surpapubic region - Rectal Exam Rectal Exam: Deferred - Extremities Exam Extremities Exam: Full ROM, Normal Capillary Refill, Normal Inspection. absent : Joint Swelling, Pedal Edema - Back Exam Back Exam: tenderness - Neurological Exam Neurological Exam: Alert, Awake - Psychiatric Exam Psychiatric exam: Normal Affect, Normal Mood - Skin Skin Exam: Dry, Intact, Normal Color, Warm Assessment and Plan - Assessment and Plan (Free Text) Assessment: 1.) Hematuria 2/2 small non obstructing calculi in right kidney Patient will be instructed to see Urologist Hunter Pisano in his office to follow up right ureter stent placement. 11/25: An abdominal xray was done today which showed the right ureteral stent in proper location. Numerous small calcifications were seen in the left upper quadrant. H/H stable. 11/24: Still c/o hematuria. H/H stable. Xeralto discontinued per cardiology secondary to history of falls; plavix 75mg po daily started. 11/23: Pt continuing to have hematuria s/p right ureter stent insertion. wbc 12.3 from 6.4 yesterday, will monitor. 11/22: Pt s/p cystoscopy today with bilateral retrograde pyelogram with right ureter stent insertion Repeat urinalysis shows 2 + protein and 2+ blood and 3595 RBC Urine culture from 11/18 negative Abdomen/Bladder U/S: Multiple small bilateral nonobstructing renal calculi. Otherwise unremarkable examination. Xaralto still on hold. PSA wnl 0.2 Urology, Dr. Pisano is consulted. 2.) Urinary Retention 11/25: Urinary retention for past 24 hours. Flomax 0.4mg was given in late afternoon. A bladder ultrasound was done today which showed a pre-void volume of 82cc and no postvoid residual. Dr Pisano is aware and believes retention is due to hesitancy 2/2 new stent placement. 2.) Chest Pain 11/24: Chest pain most likely musculoskeletal. Full workup has been done as described below, this complaint will not be investigated further on this admission unless symptoms return. * 11/22: Pt reported pin-point chest pain today which was different in quality and location than chest pain on admission * Observe to telemetry * c/w home med Aspirin 81mg PO 1x daily * c/w home med Metoprolol Tartrate 25mg daily HOLD SBP<100 and HR<60 * c/w home med Cardizem 30mg 4x a day HOLD SBP<100 and HR<60 * c/w home med digoxin .125mg po daily * Troponin negative x3 * ECHO (10/20/16): Mild concentric left ventricular hypertrophy. Left ventricular systolic function normal. EF 64% * ECHO (06/06/16): Left atrium mildly dilated, right atrium mildly dilated, LVEF: 60% * HgA1C 5.6 on last admission in 09/2016 * Lipid Panel wnl 5.6 on last admission in 09/2016 * TSH wnl 5.6 on last admission in 09/2016 3.) Slurred Speech Resolved 11/24: There were no findings for TIA upon workup. Patient asymptomatic. We will monitor for symptoms. 11/23: Vit B12 wnl 474, TSH wnl 0.85, Free T4 wnl 0.96 11/16: Neck MRA: Widely patent bilateral common and internal carotid arteries with no significant stenosis appreciated. 11/16: Head MRA: No evidence of occlusion or definite significant stenosis. 11/16: Brain MRI: Stable age related neuro degenerate change identified without acute is over infarction mass-effect hydrocephalus or cortical edema. No suspicious extra-axial collection is encountered in the interval. Follow- up CT or MRI are available as indicated. 11/16: Dr Cabrales, neurology,given headache and abnormal neuro exam recommended MRI of brain w/out contrast and MRA of head/neck. hx of TIA. CT head -> no intracranial hemorrhage. scattered nonspecific white matter changes. carotid dopplers -> carotid artery duplex scan does not suggest hemodynamically significant stenosis of right OR left extracranial carotid arteries neurology consulted, Dr Cabrales. Follow up recommendations. 3.) Headache 11/24: Pt still c/o of mild headache. Will continue to investigate cause/ remedy. Will monitor for symptoms. Neurologist, Dr Cabrales recommends follow up outpatient with Dr Roc Santos and to discharge with tramadol 25mg qd prn in the interim. 11/18: Will give xanax at bedtime as this is when patient takes it at home and could help mitigate his symptoms. 11/16: Per Dr Cabrales, neurology, will treat the headache with depakote 500 mg IV push, magnesium sulfate 2 grams IV and decadron 10 mg IV ONCE.4. Patient reported only mild improvement in symptoms. 5.) Hematochezia 11/25: Second FOBT has not been collected because the patient has been constipated. We gave Colace and Dulcolax yesterday. A fleet enema was ordered today and will be done once patient returns from abdominal xray. 11/23: Repeat FOBT ordered as pt reported bloody bowel movement again Negative FOBTx1 6.) Chronic Pain * History of spinal stenosis, extensive right rotator cuff tear * Start Percocet 1 tab 5/325 q4h PRN pain * Morphine extended release 15mg po daily 7.) History of PTSD, Anxiety, Bipolar, Depression * c/w home med Paxil 40mg PO daily * c/w home med Wellbutrin 150mg daily * c/w home med xanax 0.5mg PO daily as needed 8.) Hyperlipidemia * c/w home med Crestor 5mg POqHS 9.) History of COPD * Patient is not in active exacerbation * Advair 250/50 1 puff q12 hours * Ipratropium 2 puff IH prn for wheezing/sob 10.) History of Atrial Fibrillation 11/24: Per cardiology, xaralto has been discontinued secondary to hx of falls. Patient currently on aspirin 81mg daily po and plavix 75mg daily po. * c/w home med Metoprolol Tartrate 25mg daily Hold SBP<100 and HR<60 * c/w home med Cardizem 30mg QID Hold SBP<100 and HR<60 * c/w home med digoxin .125mg po daily * c/w home med ASA 81mg po daily * HASBLED:2 -> 4.1% risk; moderate risk for major bleeding - anticoagulation can be considered * [id number]:3 -> 3.2% risk; moderate-high risk for stroke - should be an anticoagulation candidate 11.) History of Hepatitis C * not on current therapy at this time - will instruct patient to follow up for outpatient [facility] upon discharge 12.) Prophylactic Treatment * SCDS bilateral * pepcid 20mg po bid * heparin 5000u sc q8 being held * PT/OT treat and Eval * heart healthy diet <Ang Mora - Last Filed: 11/26/16 17:34> Objective - Vital Signs/Intake and Output Vital Signs (last 24 hours): Temp Pulse Resp BP Pulse Ox 98.0 F 92 H 20 113/74 96 11/26/16 08:22 11/26/16 12:21 11/26/16 08:22 11/26/16 09:25 11/26/16 08:22 Intake and Output: 11/26/16 11/26/16 06:59 18:59 Intake Total 450 Output Total 300 Balance 150 - Medications Medications: Current Medications Aspirin (Aspirin Chewable) 81 mg PO DAILY [facility] Last Admin: 11/26/16 09:25 Dose: 81 mg Bupropion HCl (Wellbutrin Xl) 150 mg PO DAILY [facility] Last Admin: 11/26/16 09:28 Dose: 150 mg Clopidogrel Bisulfate (Plavix) 75 mg PO DAILY [facility] Last Admin: 11/26/16 09:26 Dose: 75 mg Digoxin (Lanoxin) 0.125 mg PO DAILY@1400 [facility] Last Admin: 11/26/16 13:15 Dose: 0.125 mg Diltiazem HCl (Cardizem) 30 mg PO QID [facility] Last Admin: 11/26/16 13:15 Dose: 30 mg Docusate Sodium (Colace) 100 mg PO BID [facility] Last Admin: 11/26/16 09:25 Dose: 100 mg Famotidine (Pepcid) 20 mg PO BID [facility] Last Admin: 11/26/16 09:25 Dose: 20 mg Ipratropium [place] (Atrovent Hfa) 2 puff IH RQ6 PRN PRN Reason: Wheezing Metoprolol Tartrate (Lopressor) 25 mg PO BID [facility] Last Admin: 11/26/16 09:25 Dose: 25 mg Morphine Sulfate (Morphine Extended Release Tab) 15 mg PO BID [facility] Last Admin: 11/26/16 09:25 Dose: 15 mg Ondansetron HCl (Zofran Inj) 4 mg IVP DAILY@ONCE PRN PRN Reason: Nausea/Vomiting Last Admin: 11/25/16 13:37 Dose: 4 mg Oxybutynin Chloride (Ditropan Tab) 5 mg PO TID [facility] Last Admin: 11/26/16 13:15 Dose: 5 mg Paroxetine HCl (Paxil) 40 mg PO DAILY [facility] Last Admin: 11/26/16 09:26 Dose: 40 mg Rosuvastatin Calcium (Crestor) 5 mg PO HS [facility] Last Admin: 11/25/16 22:22 Dose: 5 mg Fluticasone/Salmeterol (Advair Diskus 250/50) 1 puff IH RQD [facility] Last Admin: 11/26/16 08:01 Dose: 1 puff Tamsulosin HCl (Flomax) 0.4 mg PO DAILY [facility] Last Admin: 11/26/16 09:26 Dose: 0.4 mg - Labs Labs: 11/26/16 06:42 11/26/16 06:38 PT 11.8 SECONDS (9.7-12.2) 11/15/16 14:17 INR 1.0 11/15/16 14:17 APTT 31 SECONDS (21-34) 11/15/16 14:17 Attending/Attestation - Attestation I have personally seen and examined this patient.: Yes I have fully participated in the care of the patient.: Yes I have reviewed all pertinent clinical information, including history, physical exam and plan: Yes Notes (Text): 11/26/16 17:33 Patient was seen and examined on 11/25/16. Exam, Assessment and Plan were thoroughly gone over with the Resident at that time. Ang Mora D.O.
[2016-11-25] MEDS ORDERED: Oxybutynin XL 15 mg Tab PO ONE (18:30)
[2016-11-26] MEDS: Oxycodone/Acetaminophen 5/325 mg Tab PO PRN ×2 (06:37→13:18)
[2016-11-26 07:02] LABS: BASO # 0.1 K/uL (0.0-0.2); BASO % 0.6 % (0.0-2.0); EOS # 0.2 K/uL (0.0-0.7); EOS % 2.6 % (0.0-4.0); LYMPH # 3.1 K/uL (1.0-4.3); LYMPH % 34.1 % (20.0-40.0); MEAN CELL VOLUME 90.2 fL (80.0-94.0); MEAN CORPUSCULAR HEMOGLOBIN 30.7 pg (27.0-31.0); MEAN PLATELET VOLUME 7.4 fL (7.2-11.7); MONO # 1.2 K/uL (0.0-0.8); MONO % 13.5 % (0.0-10.0); NRBC % 0.1 % (0.0-2.0); RED CELL DISTRIBUTION WIDTH 13.3 % (11.5-14.5)
[2016-11-26 07:14] LABS: ALB/GLOB RATIO 1.4 (1.0-2.1); ALKALINE PHOSPHATASE 74 U/L (38-126); ALT/SGPT 59 U/L (21-72); AST/SGOT 37 U/L (17-59); BILIRUBIN,TOTAL 0.3 mg/dL (0.2-1.3); BLOOD UREA NITROGEN 16 mg/dL (9-20); CALCIUM 9.1 mg/dl (8.6-10.4); CARBON DIOXIDE 28 mmol/L (22-30); CHLORIDE 100 mmol/L (98-107); GFR AFRICAN-AMERICAN > 60; GLUCOSE,RANDOM 101 mg/dL (75-110); MAGNESIUM 2.2 mg/dL (1.6-2.3); PHOSPHOROUS 3.7 mg/dL (2.5-4.5); POTASSIUM 4.3 mmol/L (3.6-5.2); SODIUM 140 mmol/L (132-148); TOTAL PROTEIN 6.5 g/dL (6.3-8.3)
[2016-11-26] MEDS: Fluticasone-Salmeterol 250-50mcg Diskus IH SCH (08:01)
--- NOTE | 2016-11-26 08:59 | CP.PCM.PN ---
<Jose Horton - Last Filed: 11/26/16 09:07> Subjective - Date & Time of Evaluation Date of Evaluation: 11/26/16 Time of Evaluation: 08:56 - Subjective Subjective: PGY2 progress note- Cardiology- Dr. Barlow Pt seen and examined at bedside. He continues to complain of urinary retention and blood tinged urine. He denies any chest pain or shortness of breath. He is experiencing flank pain. No acute events overnight as per nursing. Objective - Vital Signs/Intake and Output Vital Signs (last 24 hours): Temp Pulse Resp BP Pulse Ox 98.0 F 91 H 20 105/69 96 11/26/16 08:22 11/26/16 08:22 11/26/16 08:22 11/26/16 08:22 11/26/16 08:22 - Medications Medications: Current Medications Aspirin (Aspirin Chewable) 81 mg PO DAILY [facility] Last Admin: 11/25/16 09:40 Dose: 81 mg Bupropion HCl (Wellbutrin Xl) 150 mg PO DAILY [facility] Last Admin: 11/25/16 09:42 Dose: 150 mg Clopidogrel Bisulfate (Plavix) 75 mg PO DAILY [facility] Last Admin: 11/25/16 09:40 Dose: 75 mg Digoxin (Lanoxin) 0.125 mg PO DAILY@1400 [facility] Last Admin: 11/25/16 13:37 Dose: 0.125 mg Diltiazem HCl (Cardizem) 30 mg PO QID [facility] Last Admin: 11/25/16 22:25 Dose: 30 mg Docusate Sodium (Colace) 100 mg PO BID [facility] Last Admin: 11/25/16 17:48 Dose: 100 mg Famotidine (Pepcid) 20 mg PO BID [facility] Last Admin: 11/25/16 17:48 Dose: 20 mg Ipratropium [place] (Atrovent Hfa) 2 puff IH RQ6 PRN PRN Reason: Wheezing Metoprolol Tartrate (Lopressor) 25 mg PO BID [facility] Last Admin: 11/25/16 17:51 Dose: 25 mg Morphine Sulfate (Morphine Extended Release Tab) 15 mg PO BID [facility] Last Admin: 11/25/16 17:49 Dose: 15 mg Ondansetron HCl (Zofran Inj) 4 mg IVP DAILY@ONCE PRN PRN Reason: Nausea/Vomiting Last Admin: 11/25/16 13:37 Dose: 4 mg Oxybutynin Chloride (Ditropan Tab) 5 mg PO TID [facility] Oxycodone/Acetaminophen (Percocet 5/325 Mg Tab) 1 tab PO Q4H PRN PRN Reason: Bladder Spasm Last Admin: 11/26/16 06:37 Dose: 1 tab Paroxetine HCl (Paxil) 40 mg PO DAILY [facility] Last Admin: 11/25/16 09:41 Dose: 40 mg Rosuvastatin Calcium (Crestor) 5 mg PO HS [facility] Last Admin: 11/25/16 22:22 Dose: 5 mg Fluticasone/Salmeterol (Advair Diskus 250/50) 1 puff IH RQD [facility] Last Admin: 11/26/16 08:01 Dose: 1 puff Tamsulosin HCl (Flomax) 0.4 mg PO DAILY [facility] Last Admin: 11/25/16 10:49 Dose: 0.4 mg - Labs Labs: 11/26/16 06:42 11/26/16 06:38 PT 11.8 SECONDS (9.7-12.2) 11/15/16 14:17 INR 1.0 11/15/16 14:17 APTT 31 SECONDS (21-34) 11/15/16 14:17 - Constitutional Appears: No Acute Distress - Eye Exam Eye Exam: EOMI, Normal appearance - ENT Exam ENT Exam: Mucous Membranes Moist - Respiratory Exam Respiratory Exam: Clear to Ausculation Bilateral, NORMAL BREATHING PATTERN - Cardiovascular Exam Cardiovascular Exam: REGULAR RHYTHM - GI/Abdominal Exam GI & Abdominal Exam: Soft. absent: Tenderness - Back Exam Back Exam: CVA tenderness (L), CVA tenderness (R) - Neurological Exam Neurological Exam: Alert, Awake, Oriented x3 Assessment and Plan - Assessment and Plan (Free Text) Assessment: 61 year old male with hx of CAD, Afib, IN, and TIA who initially presented with headache and angina that has now resolved, but has continued gross hematuria Plan: Angina- R/O ACS -Pt is no longer experiencing any chest pain, shortness of breath- symptoms have resolved medications asa 81mg PO daily digoxin 125mcg PO daily cardizem 30mg po qid lopressor 25mg PO bid crestor 5mg PO daily plavix 75 daily Labs/DI EKG: Afib Echo: borderline LVH; EF 64% (09/2016) Trops: negative x3 HgA1C: 5.6 (09/2016) Lipid Panel: Total-156/LDL-102/HDL-44 (09/2016) TSH 1.5 (09/2016) Pt's pain may have been musculoskeletal in nature and unlikely to have been cardiac. He has had extensive workup as detailed above. Afib- rate limited Xarelto was held in setting of hematuria/procedure continue to hold xarelto due to pt's hx of falls continue asa and plavix digoxin 125mcg PO daily cardizem 30mg po qid lopressor 25mg PO bid We will be signing off at this time. Thank you for your consult. Please re- consult as needed. Case discussed with Dr. Barlow <Kristy Barlow - Last Filed: 11/29/16 05:41> Objective - Vital Signs/Intake and Output Vital Signs (last 24 hours): Temp Pulse Resp BP Pulse Ox 97.6 F 73 18 98/61 L 95 11/26/16 16:00 11/26/16 16:00 11/26/16 16:00 11/26/16 16:00 11/26/16 16:00 - Labs Labs: 11/26/16 06:42 11/26/16 06:38 PT 11.8 SECONDS (9.7-12.2) 11/15/16 14:17 INR 1.0 11/15/16 14:17 APTT 31 SECONDS (21-34) 11/15/16 14:17 Attending/Attestation - Attestation I have personally seen and examined this patient.: Yes I have fully participated in the care of the patient.: Yes I have reviewed all pertinent clinical information, including history, physical exam and plan: Yes Notes (Text): 11/29/16 05:40 continue anticoagulation with asa hematuria outpt follow up
[2016-11-26] MEDS: Morphine 15 mg SR Tab PO SCH ×2 (09:25→18:02)
[2016-11-26] MEDS: buPROPion 150 mg/24 Hours XL Tab PO SCH (09:28)
--- NOTE | 2016-11-26 11:44 | CP.PCM.PN ---
Objective - Vital Signs/Intake and Output Vital Signs (last 24 hours): Temp Pulse Resp BP Pulse Ox 98.0 F 91 H 20 113/74 96 11/26/16 08:22 11/26/16 08:22 11/26/16 08:22 11/26/16 09:25 11/26/16 08:22 - Medications Medications: Current Medications Aspirin (Aspirin Chewable) 81 mg PO DAILY [facility] Last Admin: 11/26/16 09:25 Dose: 81 mg Bupropion HCl (Wellbutrin Xl) 150 mg PO DAILY [facility] Last Admin: 11/26/16 09:28 Dose: 150 mg Clopidogrel Bisulfate (Plavix) 75 mg PO DAILY [facility] Last Admin: 11/26/16 09:26 Dose: 75 mg Digoxin (Lanoxin) 0.125 mg PO DAILY@1400 [facility] Last Admin: 11/25/16 13:37 Dose: 0.125 mg Diltiazem HCl (Cardizem) 30 mg PO QID [facility] Last Admin: 11/26/16 10:00 Dose: 30 mg Docusate Sodium (Colace) 100 mg PO BID [facility] Last Admin: 11/26/16 09:25 Dose: 100 mg Famotidine (Pepcid) 20 mg PO BID [facility] Last Admin: 11/26/16 09:25 Dose: 20 mg Ipratropium [place] (Atrovent Hfa) 2 puff IH RQ6 PRN PRN Reason: Wheezing Metoprolol Tartrate (Lopressor) 25 mg PO BID [facility] Last Admin: 11/26/16 09:25 Dose: 25 mg Morphine Sulfate (Morphine Extended Release Tab) 15 mg PO BID [facility] Last Admin: 11/26/16 09:25 Dose: 15 mg Ondansetron HCl (Zofran Inj) 4 mg IVP DAILY@ONCE PRN PRN Reason: Nausea/Vomiting Last Admin: 11/25/16 13:37 Dose: 4 mg Oxybutynin Chloride (Ditropan Tab) 5 mg PO TID [facility] Last Admin: 11/26/16 09:28 Dose: 5 mg Oxycodone/Acetaminophen (Percocet 5/325 Mg Tab) 1 tab PO Q4H PRN PRN Reason: Bladder Spasm Last Admin: 11/26/16 06:37 Dose: 1 tab Paroxetine HCl (Paxil) 40 mg PO DAILY [facility] Last Admin: 11/26/16 09:26 Dose: 40 mg Rosuvastatin Calcium (Crestor) 5 mg PO HS [facility] Last Admin: 11/25/16 22:22 Dose: 5 mg Fluticasone/Salmeterol (Advair Diskus 250/50) 1 puff IH RQD [facility] Last Admin: 11/26/16 08:01 Dose: 1 puff Tamsulosin HCl (Flomax) 0.4 mg PO DAILY [facility] Last Admin: 11/26/16 09:26 Dose: 0.4 mg - Labs Labs: 11/26/16 06:42 11/26/16 06:38 PT 11.8 SECONDS (9.7-12.2) 11/15/16 14:17 INR 1.0 11/15/16 14:17 APTT 31 SECONDS (21-34) 11/15/16 14:17
[2016-11-26] MEDS: Digoxin 125 mcg (0.125 mg) Tab PO SCH (13:15)
[2016-11-26 13:17] VITALS: PULSE 97
--- NOTE | 2016-11-26 16:48 | CP.PCM.DIS ---
Provider - Provider Date of Admission: 11/17/16 16:38 Attending physician: Adolfo Arana MD Time Spent in preparation of Discharge (in minutes): 45 Hospital Course - Lab Results Lab Results: Micro Results 11/18/16 22:32 Urine Urine Culture - Final No Growth (<1,000 CFU/ML) Most Recent Lab Values WBC 9.0 K/uL (4.8-10.8) 11/26/16 06:42 RBC 4.55 Mil/uL (4.40-5.90) 11/26/16 06:42 Hgb 14.0 g/dL (12.0-18.0) 11/26/16 06:42 Hct 41.0 % (35.0-51.0) 11/26/16 06:42 MCV 90.2 fL (80.0-94.0) 11/26/16 06:42 MCH 30.7 pg (27.0-31.0) 11/26/16 06:42 MCHC 34.0 g/dL (33.0-37.0) 11/26/16 06:42 RDW 13.3 % (11.5-14.5) 11/26/16 06:42 Plt Count 208 K/uL (130-400) 11/26/16 06:42 MPV 7.4 fL (7.2-11.7) 11/26/16 06:42 Neut % (Auto) 49.2 % (50.0-75.0) L 11/26/16 06:42 Lymph % (Auto) 34.1 % (20.0-40.0) 11/26/16 06:42 Morrill % (Auto) 13.5 % (0.0-10.0) H 11/26/16 06:42 Eos % (Auto) 2.6 % (0.0-4.0) 11/26/16 06:42 Baso % (Auto) 0.6 % (0.0-2.0) 11/26/16 06:42 Neut # 4.4 K/uL (1.8-7.0) 11/26/16 06:42 Lymph # 3.1 K/uL (1.0-4.3) 11/26/16 06:42 Morrill # 1.2 K/uL (0.0-0.8) H 11/26/16 06:42 Eos # 0.2 K/uL (0.0-0.7) 11/26/16 06:42 Baso # 0.1 K/uL (0.0-0.2) 11/26/16 06:42 Neutrophils % (Manual) 89 % (50-75) H 11/23/16 06:43 Band Neutrophils % 1 % (0-2) 11/23/16 06:43 Lymphocytes % (Manual) 7 % (20-40) L 11/23/16 06:43 Monocytes % (Manual) 3 % (0-10) 11/23/16 06:43 Platelet Estimate Normal (NORMAL) 11/23/16 06:43 RBC Morphology Normal 11/23/16 06:43 PT 11.8 SECONDS (9.7-12.2) 11/15/16 14:17 INR 1.0 11/15/16 14:17 APTT 31 SECONDS (21-34) 11/15/16 14:17 Sodium 140 mmol/L (132-148) 11/26/16 06:38 Potassium 4.3 mmol/L (3.6-5.2) 11/26/16 06:38 Chloride 100 mmol/L (98-107) 11/26/16 06:38 Carbon Dioxide 28 mmol/L (22-30) 11/26/16 06:38 Anion Gap 16 (10-20) 11/26/16 06:38 BUN 16 mg/dL (9-20) 11/26/16 06:38 Creatinine 0.9 MG/DL (0.8-1.5) 11/26/16 06:38 Est GFR ( Amer) > 60 11/26/16 06:38 Est GFR (Non-Af Amer) > 60 11/26/16 06:38 POC Glucose (mg/dL) 135 mg/dL (65-110) H 11/15/16 13:59 Random Glucose 101 mg/dL (75-110) 11/26/16 06:38 Calcium 9.1 mg/dl (8.6-10.4) 11/26/16 06:38 Phosphorus 3.7 mg/dL (2.5-4.5) 11/26/16 06:38 Magnesium 2.2 mg/dL (1.6-2.3) 11/26/16 06:38 Total Bilirubin 0.3 mg/dL (0.2-1.3) 11/26/16 06:38 AST 37 U/L (17-59) 11/26/16 06:38 ALT 59 U/L (21-72) 11/26/16 06:38 Alkaline Phosphatase 74 U/L (38-126) 11/26/16 06:38 Total Creatine Kinase 53 U/L (55-170) L 11/16/16 02:27 CK-MB (Mass) 0.65 ng/mL (0.0-3.38) 11/16/16 02:27 Troponin I < 0.0120 ng/mL (0.00-0.120) 11/15/16 14:17 Troponin I, Quant < 0.0120 ng/mL (0.00-0.120) 11/16/16 02:27 C-React Prot High Sens 0.51 mg/L (1.00-3.00) L 11/23/16 06:43 Total Protein 6.5 g/dL (6.3-8.3) 11/26/16 06:38 Albumin 3.8 g/dL (3.5-5.0) 11/26/16 06:38 Globulin 2.7 gm/dL (2.2-3.9) 11/26/16 06:38 Albumin/Globulin Ratio 1.4 (1.0-2.1) 11/26/16 06:38 Free PSA 0.1 ng/mL 11/21/16 11:31 % Free PSA 50 Percent (>25) 11/21/16 11:31 Total PSA 0.2 ng/mL (<=4.0) 11/21/16 11:31 Prostate Cancer Risk 1 Percent 11/21/16 11:31 Vitamin B12 474 pg/mL (239-931) 11/23/16 06:43 Free T4 0.96 ng/dL (0.78-2.19) 11/23/16 14:16 TSH 3rd Generation 0.85 mIU/L (0.46-4.68) 11/23/16 14:16 Urine Color Red (YELLOW) 11/20/16 14:08 Urine Clarity Hazy (Clear) 11/20/16 14:08 Urine pH 6.0 (5.0-8.0) 11/20/16 14:08 Ur Specific [place] 1.011 (1.003-1.030) 11/20/16 14:08 Urine Protein 2+ mg/dL (NEGATIVE) H 11/20/16 14:08 Urine Glucose (UA) Normal mg/dL (Normal) 11/20/16 14:08 Urine Ketones Negative mg/dL (NEGATIVE) 11/20/16 14:08 Urine Blood 2+ (NEGATIVE) H 11/20/16 14:08 Urine Nitrate Negative (NEGATIVE) 11/20/16 14:08 Urine Bilirubin Negative (NEGATIVE) 11/20/16 14:08 Urine Urobilinogen Normal mg/dL (0.2-1.0) 11/20/16 14:08 Ur Leukocyte Esterase Neg Jeanie/uL (Negative) 11/20/16 14:08 Urine WBC (Auto) 4 /hpf (0-5) 11/20/16 14:08 Urine RBC (Auto) 3595 /hpf (0-3) H 11/20/16 14:08 Hyaline Casts 11-20 /lpf (0-2) H 11/17/16 15:40 Stool Occult Blood Negative (NEGATIVE) 11/17/16 15:04 Digoxin 0.5 ng/mL (0.8-2.0) L 11/17/16 14:14 - Hospital Course Hospital Course: As per admission: HPI: Mr Elias is a 61 with a PMHx significant for Afib, CAD, LA (July 2016) and multiple TIAs (Mar 2016 & Jun 2016) who presents with chest pain and palpitations that began today at 1pm. Patient states that he was woken up out of sleep this morning around 7:00am with left-sided BYRNE located behind the eye that radiates to the temporal region and down the neck. It is described to be a "throbbing/pulsating pressure", 9/10 in severity. Patient then got out of bed and attempted to go about his normal daily routine. Shortly after he became nauseous and vomited x 3. He was able to eat a small breakfast but felt that he was unable to tolerate any of his medications today so he did not take them. Later in the afternoon, he and his fiance went out walking to grab lunch around noon. While on the walk he began having chest pains and palpitations that radiated down the left arm. This pain was described to be a pressure like pulsations in which he felt each heartbeat. Associated with numbness and tingling in the 3-5th digits of the left hand; thus prompting him to come to the ED for further evaluation. He describes these episodes to be quite similar in nature to his prior episodes of chest pain that brought him to the hospital. Denies any precipitating or strenous activities prior to onset. While in the ED , patient was found to be in Afib @ 120bpm. He was subsequently given Cardizem 30mg which brought his HR down to current 90s. Upon further questioning, it was revealed that patient had also experienced some slurred speech along with minor facial numbness and droop with brief left arm weakness this morning. He reports full resolution of these symptoms. As per fiance, since his last TIA, patient has been rather unsteady on his feet and frequently loses balance. Denies any recent falls, syncopal episodes or head trauma. It should also be of note, that patient has discontinued taking his Xarelto for several weeks now, as he was under the impression that he needed to prepare for an uncoming orthopedic shoulder procedure that has not been officially scheduled. Hospital Course: Patient was admitted with consideration for chest pain/ rule out ACS. Patient was given a cardiac work-up and consult was placed to waiter/waitress tourist class, Dr. Barlow, who agreed with planned cardiac work up with recommendation for patient to continue appropriate medications as planned by medicine team. Patient's cardiac work-up was benign and he remained medically managed with appropriate medications for his significant cardiac history with recommendation as per cardiology to add on Xarelto to management regimen. Neurologist, Dr. Cabrales was consulted due to patient's presentation of left - sided BYRNE with slurred speech along with minor facial numbness and droop with brief left arm weakness and past medical history of multiple TIAs. Dr. cabrales recommended appropriate diagnostic work up and medication management for patient's headache. Patient's headache improved over the course of admission. On 11/17/16: Patient admitted to episodes of hematuria, 3 days after been placed on Xarelto. Urology consult was placed to, Dr. Pisano, who then performed a cystoscopy, bilateral retrograde pyleograms and insertion of right double J stent on (11/22/16) based on diagnostic findings. Following procedure, patient had complaints of urinary retention and was placed on flomax. Patient continued to remain medically stable and urinary retention soon resolved. Patient continued to remain clinically stable, while be managed on appropriate medication regiment of his current and past medical problems. Patient was then cleared by his health care team and discharge with appropriate medications and follow-up instructions. Pertinent Study Results: 1. Echocardiogram (10/20/16): * Borderline to mild concentric left ventricular hypertrophy * Left ventricular systolic function is normal * The right ventricular systolic function is normal * No valvular abnormality * Ejection fraction is within normal range 2. Serial EKG: * 10/21: Normal sinus rhythm * 11/19: Atrial fibrillation with RVR ( Patient does have a PMHX: A.fib) * 11/19: Atrial fibrillation (Patient does have a PMHX: A.fib) 3. Chest X-ray (11/15/16): Low lung volumes, mild crowded bronchovascular markings and mild bibasilar atelectasis 4. Head CT (11/15/16): Streak artifact obscures evaluation particularly of the skullbase. * Scattered nonspecific white matter changes. 5. Cartoid Doppler Study (11/15/16): Does not suggest hemodynamically significant stenosis of right OR left extracranial carotid arteries 6. Brain MRI (11/16/16): Stable age related neuro degenerate change identified without acute is over infarction mass-effect hydrocephalus or cortical edema. No suspicious extra-axial collection is encountered in the interval. 7. Neck MRA (11/16/16): Widely patent bilateral common and internal carotid arteries with no significant stenosis appreciated * Head MRA (11/16/16): No evidence of occlusion or definite significant stenosis. 8. Abdomen/ Bladder Ultrasound (11/19/16): Multiple small bilateral nonobstructing renal calculi. Otherwise unremarkable examination 9. Abdomen X-ray (11/23/16): Right ureteral stent. No coarse calcifications evident on the right. Numerous small calcifications in the left upper quadrant in the expected location of the kidney. Moderate constipation This is a brief summary of events. For a complete course, refer to the medical record. Discharge Exam - Head Exam Head Exam: NORMAL INSPECTION - Eye Exam Eye Exam: EOMI, Normal appearance - ENT Exam ENT Exam: Mucous Membranes Moist, Normal Exam - Respiratory Exam Respiratory Exam: Clear to PA & Lateral, NORMAL BREATHING PATTERN - Cardiovascular Exam Cardiovascular Exam: REGULAR RHYTHM, +S1, +S2 - GI/Abdominal Exam GI & Abdominal Exam: Normal Bowel Sounds, Soft - Extremities Exam Extremities exam: normal capillary refill, normal inspection - Neurological Exam Neurological exam: Alert, Oriented x3 - Psychiatric Exam Psychiatric exam: Normal Affect, Normal Mood - Skin Skin Exam: Dry, Normal Color, Warm Discharge Plan - Discharge Medications Prescriptions: Clopidogrel [Plavix] 75 mg PO DAILY #30 tab Docusate [Colace] 100 mg PO BID #60 cap oxyCODONE/Acetaminophen [Percocet 5/325 mg Tab] 2 tab PO Q8H PRN #15 tab PRN Reason: Bladder Spasm - Follow Up Plan Condition: STABLE Disposition: HOME/ ROUTINE Instructions: Oxycodone/Acetaminophen (By mouth), Laxative, Stool Softeners ( By mouth), Clopidogrel (By mouth), Transient Ischemic Attack (DC), Atrial Fibrillation (DC), Chest Pain (DC), Urinary Retention in Men (GEN), Cystoscopy ( DC), Heart Healthy Diet (DC) Additional Instructions: Please discharge patient to appropriate residential as per Dr. Ang Mora. Please start the following new medication as prescribed: 1. Plavix 75 mg PO daily Please resume all other home medications as prescribed, which you stated you had enough of at home. Please also note the following home medication prescriptions that were provided to you as you stated you did not have enough until your follow up with Dr. Garrett: 1. Metoprolol Tartrate 25mg PO BID 2. Percocet 5/325mg 2 tabs PO Q8H ( 15 tablets) 3. Omeprazole 40mg PO daily 4. Crestor 5mg PO HS 5. Aspirin 81mg PO daily 6. Colace 100mg PO BID Please drink prune juice 8 ounces twice a day Please follow-up with your PMD, Dr. Garrett as planned on December 22, 2016 Dr. Pisano has provided patient with his cell phone number and patient is to follow-up for an appointment as planned. Please return to the hospital if symptoms persist. Instructions explained to patient and patient is agreeable. Referrals: Leeroy Cabrales MD [Staff Provider] - ([phone]) Hunter Pisano MD [Staff Provider] - Jenny Garrett MD [Staff Provider] -
[2016-11-26 17:39] VITALS: RESP 18; TEMP 97.6; O2SAT 95
[2016-11-26 17:59] VITALS: PULSE 73
[2016-11-26 18:05] VITALS: BP 98/61
== END 2016-11-26 18:12 | disposition home or self-care (01) | DRG 132 ==
LOC: C.ER 13:20 → C.9E 15:12 → C.5T 17:54 → C.6T 11-17 06:43 → OBSVTOIN 11-17 16:38
PROVIDERS: ADMIT Internal Medicine; ATTEND Internal Medicine
PROC: BT14YZZ Fluoroscopy of Kidneys, Ureters and Bladder using Other Contrast (ICD-10-PCS; 2016-11-22)
PROC: 0T768DZ Dilation of Right Ureter with Intraluminal Device, Via Natural or Artificial Opening Endoscopic (ICD-10-PCS; principal; 2016-11-22 14:29)
DX: I25.110 Atherosclerotic heart disease of native coronary artery with unstable angina pectoris (principal); J44.9 Chronic obstructive pulmonary disease, unspecified; M48.02 Spinal stenosis, cervical region; I10 Essential (primary) hypertension; N99.89 Other postprocedural complications and disorders of genitourinary system; I48.91 Unspecified atrial fibrillation; F41.9 Anxiety disorder, unspecified; Z86.73 Personal history of transient ischemic attack (TIA), and cerebral infarction without residual deficits; Z91.14 Patient's other noncompliance with medication regimen; J45.909 Unspecified asthma, uncomplicated; F43.10 Post-traumatic stress disorder, unspecified; F17.210 Nicotine dependence, cigarettes, uncomplicated; N20.0 Calculus of kidney; K21.9 Gastro-esophageal reflux disease without esophagitis; F41.0 Panic disorder [episodic paroxysmal anxiety]; F31.9 Bipolar disorder, unspecified; R31.9 Hematuria, unspecified; R33.8 Other retention of urine; Y83.8 Other surgical procedures as the cause of abnormal reaction of the patient, or of later complication, without mention of misadventure at the time of the procedure; R29.810 Facial weakness; R47.81 Slurred speech; R53.1 Weakness

== ENCOUNTER 2016-12-04 13:07 | Emergency (ER) | payer MEDICAID ==
[2016-12-04 13:08] VITALS: PULSE 97
[2016-12-04 13:15] VITALS: TEMP 97.8
[2016-12-04] MEDS ORDERED: Sodium Chloride 0.9% 1,000 ML IV ONE (13:36)
--- NOTE | 2016-12-04 14:12 | C.PDOC ---
History Of Present Illness 61 yr old male presents to the ER with complaints of right flank pain and hematuria for the past 4 days and mild nausea. Patient states few days ago he had a subjective fever but none now. Denies history of similar pain, fever, nausea, vomiting, diarrhea, constipation, dysuria, weakness or numbness. Time Seen by Provider: 12/04/16 13:22 Chief Complaint (Nursing): Male Genitourinary History Per: Patient History/Exam Limitations: no limitations Onset/Duration Of Symptoms: Days (4) Past Medical History Reviewed: Historical Data, Nursing Documentation, Vital Signs Vital Signs: Last Vital Signs Temp 97.8 F 12/04/16 16:07 Pulse 61 12/04/16 16:07 Resp 20 12/04/16 16:07 BP 119/74 12/04/16 16:07 Pulse Ox 98 12/04/16 16:07 - Medical History PMH: Anxiety, Arthritis, Asthma, Atrial Fibrillation, Back Problems, Bipolar Disorder, Cardia Arrhythmia, COPD, Depression, Hepatitis, HTN, Post Traumatic Stress Disorder (1985 of 2 y/o daughter), TIA (March 2016/JUN 2016) Surgical History: Appendectomy, Tonsillectomy - [facility] Procedures DILATION OF RIGHT URETER WITH INTRALUMINAL DEVICE, ENDO (11/17/16) DX ULTRASOUND-HEART (05/05/14) FLUOROSCOPY OF KIDNEY, URETER & BLADDER USING OTH CONTRAST (11/17/16) INSERTION OF INFUSION DEV INTO SUP VENA CAVA, PERC APPROACH (07/09/15) PERCUTANEOUS ABDOMINAL DRAINAGE (05/05/14) ULTRASONOGRAPHY OF RIGHT AND LEFT HEART, TRANSESOPHAGEAL (07/09/15) VENOUS CATHETERIZATION NEC (05/05/14) Family History: States: No Known Family Hx - Social History Hx Tobacco Use: Yes (1ppd from ages [age] ) Hx Alcohol Use: No Hx Substance Use: No - Immunization History Hx Tetanus Toxoid Vaccination: Yes Hx Influenza Vaccination: No Hx Pneumococcal Vaccination: No Review Of Systems Except As Marked, All Systems Reviewed And Found Negative. Constitutional: Negative for: Fever Gastrointestinal: Positive for: Abdominal Pain (Right sided flank pain ). Negative for: Nausea, Vomiting, Diarrhea, Constipation Genitourinary: Positive for: Hematuria. Negative for: Dysuria Neurological: Negative for: Weakness, Numbness Physical Exam - Physical Exam Appears: Non-toxic, No Acute Distress Skin: Warm, Dry, No Rash Head: Atraumatic, Normacephalic, No Swelling Oral Mucosa: Moist Chest: Symmetrical, No Tenderness Cardiovascular: Rhythm Regular, No Murmur Respiratory: Normal Breath Sounds, No Rales, No Rhonchi, No Stridor, No Wheezing Back: CVA Tenderness (Right sided ), No Muscle Spasm Extremity: Normal ROM, No Swelling Neurological/Psych: Oriented x3, Normal Speech, Normal Motor ED Course And Treatment - Laboratory Results Result Diagrams: 12/04/16 14:51 12/04/16 14:51 O2 Sat by Pulse Oximetry: 100 (RA) Pulse Ox Interpretation: Normal - CT Scan/US CT - Abdomen & Pelvis Other Rad Studies (CT/US): Read By Radiologist, Radiology Report Reviewed CT/US Interpretation: CT abdomen and pelvis. History: Right flank pain with hematuria. Comparison: None available. Technique: Multiple contiguous axial images were performed through the abdomen and pelvis without the use of intravenous contrast. Subsequently, sagittal and coronal reformatted images were obtained. Findings: Prominent linear atelectasis within the anterior aspect of the left lower lobe. No pleural or pericardial effusion. Mild fatty infiltration of the liver. Contracted gallbladder. Spleen is preserved. Splenule. Nodular thickening of the adrenal glands. Pancreas is preserved. Small hiatal hernia. Mild thickening of the proximal gastric wall. Right kidney: Scattered upper to midpole calculi measuring up to 1 millimeters in the upper pole and up to 4 and 3 millimeters in the midpole. Right nephroureteral stent in place. No hydronephrosis. Mild periureteral fat stranding throughout the course of the ureter. Nephroureteral stent terminates in the posterior left aspect of the urinary bladder. Left Kidney: Scattered nonobstructive calculi throughout the upper and mid pole of the left kidney with multiple scattered calculi for example in the upper pole measuring 3 and 5 millimeters and in the midpole measuring up to 2-3 millimeters. No hydronephrosis. Underdistended and or mildly thickened urinary bladder. Heterogeneous and prominent prostate with associated calcifications. Fecal retention in the colon with mild underdistention and or thickening of the sigmoid colon and rectum. Appendix not well identified on this noncontrast study. If there is concern for appendiceal pathology, consider further evaluation with a contrast-enhanced scan. Small fat containing left inguinal hernia. Shotty para-aortic and inguinal lymph nodes. Shotty mesenteric lymph nodes. Lytic somewhat erosive changes noted within the left iliac bone at the SI joint space. Clinical correlation. Correlation with MRI may be helpful if clinically indicated. Osteitis pubis noted. Grade 2 anterolisthesis of L5 on S1. Grade 1 retrolisthesis of L4 on L5. Scoliotic curvature of the lower lumbar spine. Impression: 1.Scattered upper to midpole right renal calculi measuring up to 1 millimeters in the upper pole and up to 4 and 3 millimeters in the midpole. Right nephroureteral stent in place. No hydronephrosis. Mild periureteral fat stranding throughout the course of the ureter. Nephroureteral stent terminates in the posterior left aspect of the urinary bladder. 2. Scattered nonobstructive calculi throughout the upper and mid pole of the left kidney with multiple scattered calculi for example in the upper pole measuring 3 and 5 millimeters and in the midpole measuring up to 2-3 millimeters. No hydronephrosis. 3. Small hiatal hernia. Mild thickening of the proximal gastric wall. 4. Underdistended and or mildly thickened urinary bladder. 5. Heterogeneous and prominent prostate with associated calcifications. 6. Fecal retention in the colon with mild underdistention and or thickening of the sigmoid colon and rectum. 7. Appendix not well identified on this noncontrast study. If there is concern for appendiceal pathology, consider further evaluation with a contrast-enhanced scan. 8. Lytic somewhat erosive changes noted within the left iliac bone at the SI joint space. Clinical correlation. Correlation with MRI may be helpful if clinically indicated. 9. Osteitis pubis noted. Grade 2 anterolisthesis of L5 on S1. Grade 1 retrolisthesis of L4 on L5. Scoliotic curvature of the lower lumbar spine. Medical Decision Making Medical Decision Making: PLAN: * CT - Abd & Pelvis * CBC * CMP * Urinalysis * Toradol IVP * Sodium Chloride IV Disposition - Disposition Referrals: Hunter Pisano MD [Staff Provider] - Disposition: HOME/ ROUTINE Disposition Time: 15:30 Condition: GOOD Additional Instructions: Thank you for letting us take care of you today. Your provider was Dr. Rincon. You were treated for blood in urine. The emergency medical care you received today was directed at your acute symptoms. If you were prescribed any medication, please fill it and take as directed. It may take several days for your symptoms to resolve. Return to the Emergency Department if your symptoms worsen, do not improve, or if you have any other problems. Please contact your doctor or call one of the physicians/clinics you have been referred to that are listed on the Patient Visit Information form that is included in your discharge packet. Bring any paperwork you were given at discharge with you along with any medications you are taking to your follow up visit. Our treatment cannot replace ongoing medical care by a primary care provider (PCP) outside of the emergency department. Thank you for allowing the [facility] team to be part of your care today. Follow up with Dr. Pisano in 2 days. The stent in your urinary tract needs to come out. Prescriptions: Ciprofloxacin [Cipro] 500 mg PO BID #14 tab Forms: [employer] (Uzbek) - Clinical Impression Clinical Impression: Hematuria - Scribe Statement The provider has reviewed the documentation as recorded by the Radha Cha Provider Attestation: All medical record entries made by the Radha were at my direction and personally dictated by me. I have reviewed the chart and agree that the record accurately reflects my personal performance of the history, physical exam, medical decision making, and the department course for this patient. I have also personally directed, reviewed, and agree with the discharge instructions and disposition.
[2016-12-04] MEDS ORDERED: Sodium Chloride 0.45% 1,000 ML IV ONE (14:47)
[2016-12-04 14:56] LABS: BASO % 0.7 % (0.0-2.0); EOS # 0.2 K/uL (0.0-0.7); EOS % 4.1 % (0.0-4.0); HEMOGLOBIN 11.3 g/dL (12.0-18.0); LYMPH # 1.6 K/uL (1.0-4.3); MEAN CELL VOLUME 90.8 fL (80.0-94.0); MEAN CORPUSCULAR HEMOGLOBIN 30.7 pg (27.0-31.0); MEAN CORPUSCULAR HGB CONC 33.9 g/dL (33.0-37.0); MONO # 0.9 K/uL (0.0-0.8); MONO % 16.2 % (0.0-10.0); NEUT # 2.8 K/uL (1.8-7.0); NRBC % 0.1 % (0.0-2.0); RBC 3.67 Mil/uL (4.40-5.90); RED CELL DISTRIBUTION WIDTH 13.2 % (11.5-14.5); WHITE BLOOD COUNT 5.7 K/uL (4.8-10.8)
--- NOTE | 2016-12-04 15:05 | CT ---
CT abdomen and pelvis History: Right flank pain with hematuria. Comparison: None available. Technique: Multiple contiguous axial images were performed through the abdomen and pelvis without the use of intravenous contrast. Subsequently, sagittal and coronal reformatted images were obtained. Findings: Prominent linear atelectasis within the anterior aspect of the left lower lobe. No pleural or pericardial effusion. Mild fatty infiltration of the liver. Contracted gallbladder. Spleen is preserved. Splenule. Nodular thickening of the adrenal glands. Pancreas is preserved. Small hiatal hernia. Mild thickening of the proximal gastric wall. Right kidney: Scattered upper to midpole calculi measuring up to 1 millimeters in the upper pole and up to 4 and 3 millimeters in the midpole. Right nephroureteral stent in place. No hydronephrosis. Mild periureteral fat stranding throughout the course of the ureter. Nephroureteral stent terminates in the posterior left aspect of the urinary bladder. Left Kidney: Scattered nonobstructive calculi throughout the upper and mid pole of the left kidney with multiple scattered calculi for example in the upper pole measuring 3 and 5 millimeters and in the midpole measuring up to 2-3 millimeters. No hydronephrosis. Underdistended and or mildly thickened urinary bladder. Heterogeneous and prominent prostate with associated calcifications. Fecal retention in the colon with mild underdistention and or thickening of the sigmoid colon and rectum. Appendix not well identified on this noncontrast study. If there is concern for appendiceal pathology, consider further evaluation with a contrast-enhanced scan. Small fat containing left inguinal hernia. Shotty para-aortic and inguinal lymph nodes. Shotty mesenteric lymph nodes. Lytic somewhat erosive changes noted within the left iliac bone at the SI joint space. Clinical correlation. Correlation with MRI may be helpful if clinically indicated. Osteitis pubis noted. Grade 2 anterolisthesis of L5 on S1. Grade 1 retrolisthesis of L4 on L5. Scoliotic curvature of the lower lumbar spine. Impression: 1.Scattered upper to midpole right renal calculi measuring up to 1 millimeters in the upper pole and up to 4 and 3 millimeters in the midpole. Right nephroureteral stent in place. No hydronephrosis. Mild periureteral fat stranding throughout the course of the ureter. Nephroureteral stent terminates in the posterior left aspect of the urinary bladder. 2. Scattered nonobstructive calculi throughout the upper and mid pole of the left kidney with multiple scattered calculi for example in the upper pole measuring 3 and 5 millimeters and in the midpole measuring up to 2-3 millimeters. No hydronephrosis. 3. Small hiatal hernia. Mild thickening of the proximal gastric wall. 4. Underdistended and or mildly thickened urinary bladder. 5. Heterogeneous and prominent prostate with associated calcifications. 6. Fecal retention in the colon with mild underdistention and or thickening of the sigmoid colon and rectum. 7. Appendix not well identified on this noncontrast study. If there is concern for appendiceal pathology, consider further evaluation with a contrast-enhanced scan. 8. Lytic somewhat erosive changes noted within the left iliac bone at the SI joint space. Clinical correlation. Correlation with MRI may be helpful if clinically indicated. 9. Osteitis pubis noted. Grade 2 anterolisthesis of L5 on S1. Grade 1 retrolisthesis of L4 on L5. Scoliotic curvature of the lower lumbar spine.
[2016-12-04 15:24] LABS: URINE BACTERIA RARE (<OCC); URINE BILIRUBIN NEGATIVE (NEGATIVE); URINE BLOOD 3+ (NEGATIVE); URINE CLARITY Hazy (Clear); URINE GLUCOSE (UA) NORMAL (Normal); URINE LEUKOCYTE ESTERASE 1+ Leu/uL (Negative); URINE NITRATE NEGATIVE (NEGATIVE); URINE PROTEIN 2+ mg/dL (NEGATIVE); URINE UROBILINOGEN NORMAL mg/dL (0.2-1.0)
[2016-12-04 15:26] LABS: URINE COLOR RED (YELLOW)
[2016-12-04 15:34] LABS: ALB/GLOB RATIO 1.1 (1.0-2.1); ALBUMIN 3.5 g/dL (3.5-5.0); ALT/SGPT 47 U/L (21-72); AST/SGOT 50 U/L (17-59); BLOOD UREA NITROGEN 21 mg/dL (9-20); CALCIUM 8.6 mg/dl (8.6-10.4); GFR AFRICAN-AMERICAN > 60; GFR NON-AFRICAN AMERICAN > 60; LIPASE 35 U/L (23-300)
[2016-12-04 16:08] VITALS: BP 119/74; PULSE 61; RESP 20
[2016-12-04 18:35] VITALS: O2SAT 100
== END 2016-12-04 16:08 | disposition home or self-care (01) ==
LOC: C.ER 13:07
DX: R31.9 Hematuria, unspecified (principal)
CPT/HCPCS: 74176; 80053; 81001; 83690; 85025; 87086; 96361; 96374; 99284; J1885; J7040

== ENCOUNTER 2016-12-12 11:32 | Emergency (ER) | payer MEDICAID ==
[2016-12-12 11:33] VITALS: PULSE 97
[2016-12-12 11:45] VITALS: BMI 25.7
[2016-12-12 11:53] VITALS: TEMP 98
--- NOTE | 2016-12-12 12:51 | C.PDOC ---
History Of Present Illness Patient is a 61 year old male, whose past medical history includes HTN, COPD, atrial fibrillation, [place] in 2017, multiple TIA's, presents to the Emergency Department for evaluation of sharp, stabbing left sided chest pain associated with palpitations. Patient has been seen here multiple times in the past with similar chest pain. Patient also complaints of ongoing right flank pain radiating to right groin, and hematuria for the past several days. Pt reports having a procedure done by Dr. Hunter Pisano recently, but states his pain is still persistent and is still experiencing hematuria. Pt had cystoscopy, and had stents placed in the right ureter on 11/22. Pt was found to have bilateral non-obstructing, small renal calculi. Patient also complains of near syncopal episode early today. States he was walking from the [employer] with his fiance when he suddenly felt lightheaded, dizzy and had lost his balance but did not fall. No LOC. Otherwise, denies any headache, shortness of breath, cough, n/v/d , fever, chills, or any other associated symptoms at this time. Time Seen by Provider: 12/12/16 11:53 Chief Complaint (Nursing): Chest Pain History Per: Patient History/Exam Limitations: no limitations Onset/Duration Of Symptoms: Days Current Symptoms Are (Timing): Still Present Quality: Sharp Associated Symptoms: denies: Nausea, Dyspnea, Diaphoresis, Syncope Modifying Factors: None Exacerbating Factors: None Alleviating Factors: None Recent travel outside of the [place]: No Additional History Per: Patient, Family Past Medical History Reviewed: Historical Data, Nursing Documentation, Vital Signs Vital Signs: Last Vital Signs Temp 98.0 F 12/12/16 11:45 Pulse 63 12/12/16 13:32 Resp 18 12/12/16 13:32 BP 124/72 12/12/16 13:32 Pulse Ox 98 12/12/16 13:32 - Medical History PMH: Anxiety, Arthritis, Asthma, Atrial Fibrillation, Back Problems, Bipolar Disorder, Cardia Arrhythmia, COPD, Depression, Hepatitis, HTN, Post Traumatic Stress Disorder (1985 of 2 y/o daughter), TIA (March 2016/JUN 2016) Denies: Diabetes, HIV, Chronic Kidney Disease, Seizures, Sexually Transmitted Disease Surgical History: Appendectomy, Tonsillectomy Denies: Carotid Endarterectomy - [facility] Procedures DILATION OF RIGHT URETER WITH INTRALUMINAL DEVICE, ENDO (11/17/16) DX ULTRASOUND-HEART (05/05/14) FLUOROSCOPY OF KIDNEY, URETER & BLADDER USING OTH CONTRAST (11/17/16) INSERTION OF INFUSION DEV INTO SUP VENA CAVA, PERC APPROACH (07/09/15) PERCUTANEOUS ABDOMINAL DRAINAGE (05/05/14) ULTRASONOGRAPHY OF RIGHT AND LEFT HEART, TRANSESOPHAGEAL (07/09/15) VENOUS CATHETERIZATION NEC (05/05/14) Family History: States: Unknown Family Hx - Social History Hx Tobacco Use: Yes (1ppd from ages [age] ) Hx Alcohol Use: No Hx Substance Use: No - Immunization History Hx Tetanus Toxoid Vaccination: Yes Hx Influenza Vaccination: No Hx Pneumococcal Vaccination: No Review Of Systems Except As Marked, All Systems Reviewed And Found Negative. Constitutional: Negative for: Fever, Chills Cardiovascular: Positive for: Chest Pain, Palpitations, Light Headedness. Negative for: Edema Respiratory: Negative for: Cough, Shortness of Breath, Hemoptysis Gastrointestinal: Negative for: Nausea, Vomiting, Abdominal Pain Genitourinary: Positive for: Hematuria. Negative for: Frequency Musculoskeletal: Positive for: Back Pain (right flank). Negative for: Neck Pain Neurological: Positive for: Dizziness. Negative for: Weakness, Numbness, Headache Physical Exam - Physical Exam Appears: Non-toxic, No Acute Distress, Other (calm, cooperative) Skin: Normal Color, Warm, Dry Head: Atraumatic, Normacephalic Eye(s): bilateral: Normal Inspection Oral Mucosa: Moist Neck: Normal ROM, Supple Chest: Symmetrical, No Tenderness Cardiovascular: Rhythm Regular, No Murmur Respiratory: Normal Breath Sounds, No Rales, No Rhonchi, No Wheezing Gastrointestinal/Abdominal: Soft, No Tenderness, No Guarding, No Rebound Back: CVA Tenderness (right), No Vertebral Tenderness, No Paraspinal Tenderness Extremity: Normal ROM, Pedal Edema (+1 bilateral) Neurological/Psych: Oriented x3, Normal Speech, Normal Cognition ED Course And Treatment - Laboratory Results Result Diagrams: 12/12/16 13:14 12/12/16 13:14 O2 Sat by Pulse Oximetry: 96 (RA) Pulse Ox Interpretation: Normal Medical Decision Making Medical Decision Making: Plan: * Blood work * Urinalysis * EKG * CXR * Reassess and disposition Progress note: Prior records reviewed. Abd & pelvis CT scan 8/5/17 1.Scattered upper to midpole right renal calculi measuring up to 1 millimeters in the upper pole and up to 4 and 3 millimeters in the midpole. Right nephroureteral stent in place. No hydronephrosis. Mild periureteral fat stranding throughout the course of the ureter. Nephroureteral stent terminates in the posterior left aspect of the urinary bladder. 2. Scattered nonobstructive calculi throughout the upper and mid pole of the left kidney with multiple scattered calculi for example in the upper pole measuring 3 and 5 millimeters and in the midpole measuring up to 2-3 millimeters. No hydronephrosis. 3. Small hiatal hernia. Mild thickening of the proximal gastric wall. 4. Underdistended and or mildly thickened urinary bladder. 5. Heterogeneous and prominent prostate with associated calcifications. 6. Fecal retention in the colon with mild underdistention and or thickening of the sigmoid colon and rectum. 7. Appendix not well identified on this noncontrast study. If there is concern for appendiceal pathology, consider further evaluation with a contrast-enhanced scan. 8. Lytic somewhat erosive changes noted within the left iliac bone at the SI joint space. Clinical correlation. Correlation with MRI may be helpful if clinically indicated. 9. Osteitis pubis noted. Grade 2 anterolisthesis of L5 on S1. Grade 1 retrolisthesis of L4 on L5. Scoliotic curvature of the lower lumbar spine. Disposition Discussed With .: Hunter Pisano Doctor Will See Patient In The: Office Counseled Patient/Family Regarding: Studies Performed, Diagnosis, Need For Followup - Disposition Referrals: Hunter Pisano MD [Staff Provider] - Disposition: HOME/ ROUTINE Disposition Time: 15:16 Condition: STABLE Instructions: Acute Hematuria (ED) - POA Present On Arrival: None - Clinical Impression Clinical Impression: Hematuria - Scribe Statement The provider has reviewed the documentation as recorded by the Radha Mora Provider Attestation: All medical record entries made by the Radha were at my direction and personally dictated by me. I have reviewed the chart and agree that the record accurately reflects my personal performance of the history, physical exam, medical decision making, and the department course for this patient. I have also personally directed, reviewed, and agree with the discharge instructions and disposition. Addendum Addendum: 12/12/16 15:13 Spoke with the hospitalist service. Patient hemodinamically stable. H&H wnl. Procedure can be done as out patient. Also, patient was a real dispo problem when admitted last time. Recommendation to treat as outpatient. Spoke with Dr. Pisano, is OK with plan.
[2016-12-12 13:22] LABS: BASO % 0.6 % (0.0-2.0); EOS # 0.1 K/uL (0.0-0.7); EOS % 3.5 % (0.0-4.0); HEMATOCRIT 32.5 % (35.0-51.0); LYMPH # 1.1 K/uL (1.0-4.3); LYMPH % 29.8 % (20.0-40.0); MEAN CELL VOLUME 90.9 fL (80.0-94.0); MEAN PLATELET VOLUME 7.8 fL (7.2-11.7); MONO # 0.4 K/uL (0.0-0.8); MONO % 10.3 % (0.0-10.0); NRBC % 0.1 % (0.0-2.0); RED CELL DISTRIBUTION WIDTH 13.4 % (11.5-14.5); WHITE BLOOD COUNT 3.8 K/uL (4.8-10.8)
--- NOTE | 2016-12-12 13:23 | RAD ---
PROCEDURE: CHEST RADIOGRAPH, 1 VIEW HISTORY: chest pain COMPARISON: Comparison is made to 11/15/2016 FINDINGS: LUNGS: No evidence of no for trait or consolidation in the lungs. PLEURA: No pneumothorax or pleural fluid seen. CARDIOVASCULAR: Normal. OSSEOUS STRUCTURES: No significant abnormalities. VISUALIZED UPPER ABDOMEN: Normal. OTHER FINDINGS: None. IMPRESSION: No active disease.
[2016-12-12 13:27] LABS: CHLORIDE 104 mmol/L (98-107); POTASSIUM 3.9 mmol/L (3.6-5.2); SODIUM 141 mmol/L (132-148)
[2016-12-12 13:29] LABS: BILIRUBIN,TOTAL 0.6 mg/dL (0.2-1.3); GFR AFRICAN-AMERICAN > 60
[2016-12-12 13:30] LABS: ALB/GLOB RATIO 1.1 (1.0-2.1); ALKALINE PHOSPHATASE 74 U/L (38-126); ALT/SGPT 43 U/L (21-72); AST/SGOT 35 U/L (17-59); BLOOD UREA NITROGEN 19 mg/dL (9-20); CARBON DIOXIDE 25 mmol/L (22-30); GLUCOSE,RANDOM 100 mg/dL (75-110); TOTAL PROTEIN 6.8 g/dL (6.3-8.3)
[2016-12-12 13:31] LABS: CALCIUM 8.8 mg/dl (8.6-10.4)
[2016-12-12 13:33] VITALS: RESP 18
[2016-12-12 14:18] LABS: RBC URINE 21155 /hpf (0-3); URINE BILIRUBIN NEGATIVE (NEGATIVE); URINE BLOOD 3+ (NEGATIVE); URINE COLOR Red (YELLOW); URINE GLUCOSE (UA) NORMAL (Normal); URINE KETONE TRACE mg/dL (NEGATIVE); URINE LEUKOCYTE ESTERASE NEG Leu/uL (Negative); URINE PROTEIN 2+ mg/dL (NEGATIVE); URINE UROBILINOGEN NORMAL mg/dL (0.2-1.0); WBC URINE 37 /hpf (0-5)
[2016-12-12 15:50] VITALS: BP 122/78; PULSE 65; O2SAT 100
--- NOTE | 2016-12-13 20:58 | CARD ---
APPROVED REPORT EKG Measurement Heart [id number] <Conclusion> Normal sinus rhythm Normal ECG
== END 2016-12-12 15:54 | disposition home or self-care (01) ==
LOC: C.ER 11:32
DX: R31.9 Hematuria, unspecified (principal)

== ENCOUNTER 2016-12-13 08:31 | Inpatient (IN) | payer MEDICAID ==
[2016-12-13 08:32] VITALS: BMI 25.7
--- NOTE | 2016-12-13 08:56 | C.PDOC ---
History Of Present Illness REFERRED DR Harry PISANO FOR PERSIST HEMATURIA AND PAIN. PAIN MORE INTENSE THAN USUAL. NPO SINCE 1800 12/12. NO MEDS TAKEN SINCE YESTERDAY PT TO HAVE CYSTO AND LASER ABLATION TODAY EXAM MILD DIST NONTOXIC NEG Time Seen by Provider: 12/13/16 08:52 Chief Complaint (Nursing): Male Genitourinary History Per: Patient History/Exam Limitations: no limitations Onset/Duration Of Symptoms: Persistent Quality Of Discomfort: "Pain" Associated Symptoms: Urinary Symptoms. denies: Fever, Chills, Diarrhea, Back Pain, Chest Pain Recent travel outside of the [place]: No Past Medical History Reviewed: Historical Data, Nursing Documentation, Vital Signs Vital Signs: Last Vital Signs Temp 98.3 F 12/13/16 08:35 Pulse 64 12/13/16 08:35 Resp 16 12/13/16 08:35 BP 121/82 12/13/16 08:35 Pulse Ox 98 12/13/16 09:04 - Medical History PMH: Anxiety, Arthritis, Asthma, Atrial Fibrillation, Back Problems, Bipolar Disorder, Cardia Arrhythmia, COPD, Depression, Hepatitis, HTN, Post Traumatic Stress Disorder (1985 of 2 y/o daughter), TIA (March 2016/JUN 2016) Surgical History: Appendectomy, Tonsillectomy - [facility] Procedures DILATION OF RIGHT URETER WITH INTRALUMINAL DEVICE, ENDO (11/17/16) DX ULTRASOUND-HEART (05/05/14) FLUOROSCOPY OF KIDNEY, URETER & BLADDER USING OTH CONTRAST (11/17/16) INSERTION OF INFUSION DEV INTO SUP VENA CAVA, PERC APPROACH (07/09/15) PERCUTANEOUS ABDOMINAL DRAINAGE (05/05/14) ULTRASONOGRAPHY OF RIGHT AND LEFT HEART, TRANSESOPHAGEAL (07/09/15) VENOUS CATHETERIZATION NEC (05/05/14) Family History: States: Unknown Family Hx - Social History Hx Tobacco Use: Yes (1ppd from ages [age] ) Hx Alcohol Use: No Hx Substance Use: No - Immunization History Hx Tetanus Toxoid Vaccination: Yes Hx Influenza Vaccination: No Hx Pneumococcal Vaccination: No Review Of Systems Except As Marked, All Systems Reviewed And Found Negative. Constitutional: Negative for: Fever, Chills Cardiovascular: Negative for: Chest Pain, Palpitations Respiratory: Negative for: Cough, Shortness of Breath, Wheezing Gastrointestinal: Negative for: Nausea, Vomiting, Abdominal Pain Genitourinary: Positive for: Hematuria Skin: Negative for: Rash Physical Exam - Physical Exam Appears: Non-toxic, Other (MILD DISTRESS) Skin: Normal Color, Warm, Dry Head: Atraumatic, Normacephalic Ear(s): Left: Normal Oral Mucosa: Moist Chest: Symmetrical Cardiovascular: Rhythm Regular Respiratory: Normal Breath Sounds, No Rales, No Rhonchi, No Wheezing Gastrointestinal/Abdominal: Soft, No Tenderness, No Guarding, No Rebound Back: Normal Inspection, No CVA Tenderness Extremity: Normal ROM, Capillary Refill (< 2 SEC.) Neurological/Psych: Oriented x3, Normal Speech, Normal Cognition ED Course And Treatment O2 Sat by Pulse Oximetry: 98 (RA) Pulse Ox Interpretation: Normal Progress - Re-Evaluation Re-evaluation Note: 12/13/16 09:03 D/W DR Harry PISANO, ADMIT TO O.R. - Data Reviewed Data Reviewed: Old records Disposition Counseled Patient/Family Regarding: Diagnosis - Disposition Disposition: HOSPITALIZED Disposition Time: 09:03 Condition: STABLE Forms: [address] [employer] ([place]) - POA Present On Arrival: None - Clinical Impression Clinical Impression: Renal colic, Hematuria, Intractable pain - Scribe Statement The provider has reviewed the documentation as recorded by the Scribe SM All medical record entries made by the Scribe were at my direction and personally dictated by me. I have reviewed the chart and agree that the record accurately reflects my personal performance of the history, physical exam, medical decision making, and the department course for this patient. I have also personally directed, reviewed, and agree with the discharge instructions and disposition. Decision To Admit - Pt Status Changed To: Hospital Disposition Of: SDS- Endo,OR,Cath,IR - . Bed Request Type: Same Day Surgery Admitting Physician: Hunter Pisano Patient Diagnosis: Renal colic, Hematuria, Intractable pain
[2016-12-13] MEDS ORDERED: Lidocaine 133 MG in Sodium Chloride 0.9% 100 ML IV STA ×2 (09:05→09:44)
[2016-12-13] MEDS ORDERED: Sodium Chloride 0.9% 1,000 ML IV STA (09:05)
[2016-12-13 09:26] LABS: RBC URINE 8637 /hpf (0-3); URINE BILIRUBIN NEGATIVE (NEGATIVE); URINE BLOOD 3+ (NEGATIVE); URINE COLOR Amber (YELLOW); URINE GLUCOSE (UA) NORMAL (Normal); URINE KETONE NEGATIVE (NEGATIVE); URINE LEUKOCYTE ESTERASE 1+ Leu/uL (Negative); URINE PROTEIN 2+ mg/dL (NEGATIVE); URINE UROBILINOGEN NORMAL mg/dL (0.2-1.0); WBC URINE 17 /hpf (0-5)
[2016-12-13] MEDS ORDERED: Sodium Chloride 0.9% 1,000 ML ONE (09:47)
[2016-12-13] MEDS: Morphine 15 mg SR Tab PO SCH (23:09)
--- NOTE | 2016-12-13 23:32 | CP.PCM.CON ---
<Leigha Capellan DO - Last Filed: 12/14/16 01:10> History of Present Illness - History of Present Illness History of Present Illness: CC: blood in urine Patient is a 61 year old male with PMHx significant for Afib, CAD, [place] (July 2016) and multiple TIAs (Mar 2016 & Jun 2016) who presents to the ER with complaint of hematuria. Patient had right ureter stenting on 11/22 and has been experiencing hematuria since. Patient states the blood in urine had improved but then for the past week he has had bright red urine with clots. Patient also reports decreased appetite for the pats 2 days, back pain, abdominal pain, dizziness for the past week. Patient does report frequent falls related to dizziness. Patient denies fever but admits to chills. Patient is to have additional procedure with Dr. Madeline Pisano and medicine team is consulted for medical management. PMD: Dr. Garrett Psych: Dr. Grier Medical History: Afib, CAD, KS (July 2016), TIA x 2 (Mar 2016, Jun 2016), COPD , GERD, Panic disorder, Anxiety disorder, PTSD, Recent R rotator cuff tear that requires surgical repair, long standing cervical spinal stenosis s/p fall from [employer] while at work in 1999. Surgical History: L knee patella fx (1981), [employer] (childhood), 2 hernias ( umbilical and inguinal in ) Prior hospitalizations: 14 week admission to the ICU for osteomyelitis/sepsis ( 3 years ago), was treated and d/c then returned back for a subsequent admission of 10 weeks for recurrent osteomyelitis. That time he was d/c to subacute rehab facility. Home meds: Wellbutryn 150mg qd; Paxil 40mg qd, ASA 81mg; Cardizem 30QID; Metoprolol 25 BID; Digoxin .125; Simvastatin 10; Omeprazole 40mg; MS-contin 15mg BID, advair 250/50 BID, albuterol 2 puff q4h as needed Allergies: NKDA FHx: M of CHF at 76. F still alive at 83. Brother #1 of CVA at 42, Brother #2 of KS at 48, Sister of KS at 46, sister of stroke, age not specified, Son of hirshsprung's disease during infancy Social Hx: Food: [place], low sodium diet. Consumes fruits and veggies regularly. Occasional fast food and ice cream 2x/week Exercise: Walks a few miles daily Drugs: Denies Tobacco: Quit few month ago, 30 py history Alcohol: Denies Caff: 2x 8-10oz cups daily Occupation: Currently unemployed Review of Systems - Constitutional Constitutional: Chills. absent: Fever - EENT Eyes: absent: Change in Vision Ears: Dizziness - Cardiovascular Cardiovascular: absent: Chest Pain - Respiratory Respiratory: absent: Cough, Dyspnea - Gastrointestinal Gastrointestinal: absent: Nausea, Vomiting - Genitourinary Genitourinary: Dysuria, Hematuria - Musculoskeletal Musculoskeletal: Limited Range of Motion (right shoulder) - Integumentary Integumentary: Rash (left leg) - Neurological Neurological: Frequent Falls. absent: Focal Weakness - Psychiatric Psychiatric: Anxiety Past Patient History - Infectious Disease Hx of Infectious Diseases: None - Tetanus Immunizations Tetanus Immunization: Unknown - Past Medical History & Family History Past Medical History?: Yes - Past Social History Smoking Status: Former Smoker - CARDIAC Hx Atrial Fibrillation: Yes Hx Cardia Arrhythmia: Yes Hx Hypertension: Yes - PULMONARY Hx Asthma: Yes Hx Chronic Obstructive Pulmonary Disease (COPD): Yes - NEUROLOGICAL Hx Transient Ischemic Attacks (TIA): Yes (March 2016/JUN 2016) - HEENT Hx HEENT Problems: Yes Hx Cataracts: Yes ("early stages" as per patient) - RENAL Hx Chronic Kidney Disease: No - ENDOCRINE/METABOLIC Hx Endocrine Disorders: No - HEMATOLOGICAL/ONCOLOGICAL Hx Human Immunodeficiency Virus (HIV): No - INTEGUMENTARY Hx Dermatological Problems: Yes Hx Psoriasis: Yes - MUSCULOSKELETAL/RHEUMATOLOGICAL Hx Falls: No - GASTROINTESTINAL Hx Gastrointestinal Disorders: No - GENITOURINARY/GYNECOLOGICAL Hx Sexually Transmitted Disorders: No - PSYCHIATRIC Hx Substance Use: No - SURGICAL HISTORY Hx Appendectomy: Yes Hx Tonsillectomy: Yes - ANESTHESIA Hx Anesthesia: Yes Hx Anesthesia Reactions: No Hx Malignant Hyperthermia: No Meds Allergies/Adverse Reactions: Allergies Allergy/AdvReac Type Severity Reaction Status Date / Time No Known Allergies Allergy Verified 12/13/16 08:37 - Medications Medications: Current Medications Aspirin (Aspirin Chewable) 81 mg PO DAILY [facility] Bupropion HCl (Wellbutrin Xl) 150 mg PO DAILY [facility] Digoxin (Lanoxin) 0.125 mg PO DAILY@1800 [facility] Diltiazem HCl (Cardizem) 30 mg PO QID [facility] Last Admin: 12/13/16 23:09 Dose: 30 mg Metoprolol Tartrate (Lopressor) 25 mg PO BID [facility] Last Admin: 12/13/16 23:11 Dose: 25 mg Morphine Sulfate (Morphine) 2 mg SC Q4 PRN PRN Reason: Pain, severe (8-10) Last Admin: 12/13/16 20:53 Dose: 2 mg Morphine Sulfate (Morphine Extended Release Tab) 15 mg PO Q12 [facility] Last Admin: 12/13/16 23:09 Dose: 15 mg Pantoprazole Sodium (Protonix Ec Tab) 40 mg PO DAILY [facility] Fluticasone/Salmeterol (Advair Diskus 250/50) 1 puff IH RQD [facility] Physical Exam - Constitutional Appears: Non-toxic, No Acute Distress - Head Exam Head Exam: ATRAUMATIC, NORMOCEPHALIC - Eye Exam Eye Exam: EOMI - ENT Exam ENT Exam: Mucous Membranes Moist - Respiratory Exam Respiratory Exam: Wheezes, NORMAL BREATHING PATTERN. absent: Respiratory Distress - Cardiovascular Exam Cardiovascular Exam: Irregular Rhythm, +S1, +S2 - GI/Abdominal Exam GI & Abdominal Exam: Normal Bowel Sounds, Soft. absent: Tenderness - Extremities Exam Extremities exam: Negative for: pedal edema Additional comments: right shoulder decreased ROM - Back Exam Back exam: CVA tenderness (R) - Neurological Exam Neurological exam: Alert - Psychiatric Exam Psychiatric exam: Normal Affect - Skin Skin Exam: Dry, Warm Results - Vital Signs Recent Vital Signs: Last Vital Signs Temp 98.1 F 12/13/16 20:52 Pulse 65 12/13/16 20:52 Resp 20 12/13/16 20:52 BP 140/82 12/13/16 23:11 Pulse Ox 96 12/13/16 20:52 Assessment & Plan - Assessment and Plan (Free Text) Assessment: 1. Hematuria UA not clean catch: 2+ protein, 3+ blood, 15 epithelial cells Patient to have procedure with Dr. Pisano in afternoon NPO after 6AM Management as per Dr. Pisano 2. COPD continue advair and albuterol 3. HTN continue metoprolol 25mg BID 4. Atrial Fibrillation continue xarelto continue cardizem continue digoxin 5. Spinal stenosis continue MS contin 15mg ER BID 6. HLD crestor 2.5mg (equivalent to home med simvastatin 10mg) 7. PTSD/ Anxiety/ Depression continue bupropion XL 150mg daily paxil 40mg daily 8. Prophylactic measure xarelto 20mg daily SCDs Fall risk protocol, 1:1 due to history multiple falls PT eval Case D/W Dr. Tierney <Sunny Tierney - Last Filed: 12/14/16 06:41> Meds - Medications Medications: Current Medications Albuterol (Ventolin Hfa 90 Mcg/Actuation (8 G)) 2 puff INH RQ4 PRN PRN Reason: Shortness of Breath Aspirin (Aspirin Chewable) 81 mg PO DAILY [facility] Bupropion HCl (Wellbutrin Xl) 150 mg PO DAILY [facility] Digoxin (Lanoxin) 0.125 mg PO DAILY@1800 [facility] Diltiazem HCl (Cardizem) 30 mg PO QID [facility] Last Admin: 12/13/16 23:09 Dose: 30 mg Metoprolol Tartrate (Lopressor) 25 mg PO BID [facility] Last Admin: 12/13/16 23:11 Dose: 25 mg Morphine Sulfate (Morphine) 2 mg SC Q4 PRN PRN Reason: Pain, severe (8-10) Last Admin: 12/13/16 20:53 Dose: 2 mg Morphine Sulfate (Morphine Extended Release Tab) 15 mg PO Q12 [facility] Last Admin: 12/13/16 23:09 Dose: 15 mg Pantoprazole Sodium (Protonix Ec Tab) 40 mg PO DAILY [facility] Paroxetine HCl (Paxil) 40 mg PO DAILY [facility] Rivaroxaban (Xarelto) 20 mg PO DAILY [facility] Rosuvastatin Calcium (Crestor) 2.5 mg PO HS [facility] Fluticasone/Salmeterol (Advair Diskus 250/50) 1 puff IH RQD [facility] Results - Vital Signs Recent Vital Signs: Last Vital Signs Temp 98.3 F 12/13/16 23:05 Pulse 60 12/13/16 23:05 Resp 20 12/13/16 23:05 BP 140/82 12/13/16 23:11 Pulse Ox 96 12/13/16 23:05 - Labs Result Diagrams: 12/14/16 06:07 Labs: Laboratory Results - last 24 hr 12/14/16 06:07 WBC 3.7 L RBC 3.63 L Hgb 10.8 L Hct 32.5 L MCV 89.6 MCH 29.6 MCHC 33.1 RDW 13.2 Plt Count 176 MPV 7.9 Neut % (Auto) 52.8 Lymph % (Auto) 31.5 [place] % (Auto) 12.5 H Eos % (Auto) 2.6 Baso % (Auto) 0.6 Neut # 2.0 Lymph # 1.2 [place] # 0.5 Eos # 0.1 Baso # 0.0 Assessment & Plan - Date & Time Date: 12/14/16 (I have seen and examined the patient. I agree with the findings and plan of care as documented by Dr. Olivarez. Patient with hematuria being managed by Urology. Medicine service consulted to manage chronic medical problems. History of COPD, hypertension, and atrial fibrillation. Continue home meds. Monitor for acute changes.) Time: 06:40 Attending/Attestation - Attestation I have personally seen and examined this patient.: Yes I have fully participated in the care of the patient.: Yes I have reviewed all pertinent clinical information: Yes
[2016-12-14] MEDS ORDERED: Albuterol HFA 90 mcg/actuation (8 g) INH PRN (01:23)
[2016-12-14 06:28] LABS: BASO % 0.6 % (0.0-2.0); EOS # 0.1 K/uL (0.0-0.7); EOS % 2.6 % (0.0-4.0); HEMATOCRIT 32.5 % (35.0-51.0); LYMPH # 1.2 K/uL (1.0-4.3); LYMPH % 31.5 % (20.0-40.0); MEAN CELL VOLUME 89.6 fL (80.0-94.0); MEAN CORPUSCULAR HEMOGLOBIN 29.6 pg (27.0-31.0); MEAN CORPUSCULAR HGB CONC 33.1 g/dL (33.0-37.0); MEAN PLATELET VOLUME 7.9 fL (7.2-11.7); MONO # 0.5 K/uL (0.0-0.8); MONO % 12.5 % (0.0-10.0); NRBC % 0.1 % (0.0-2.0); RED CELL DISTRIBUTION WIDTH 13.2 % (11.5-14.5); WHITE BLOOD COUNT 3.7 K/uL (4.8-10.8)
[2016-12-14 06:42] LABS: INR 1.1
[2016-12-14 07:23] LABS: CHLORIDE 107 mmol/L (98-107); POTASSIUM 3.9 mmol/L (3.6-5.2); SODIUM 141 mmol/L (132-148)
[2016-12-14 07:25] LABS: GFR AFRICAN-AMERICAN > 60
[2016-12-14 07:26] LABS: ALB/GLOB RATIO 1.1 (1.0-2.1); ALKALINE PHOSPHATASE 66 U/L (38-126); ALT/SGPT 36 U/L (21-72); AST/SGOT 36 U/L (17-59); BILIRUBIN,TOTAL 0.7 mg/dL (0.2-1.3); BLOOD UREA NITROGEN 9 mg/dL (9-20); CARBON DIOXIDE 27 mmol/L (22-30); GLUCOSE,RANDOM 90 mg/dL (75-110)
[2016-12-14 07:27] LABS: CALCIUM 8.9 mg/dl (8.6-10.4)
[2016-12-14] MEDS: Morphine 15 mg SR Tab PO SCH ×2 (10:50→21:17)
[2016-12-14] MEDS: buPROPion 150 mg/24 Hours XL Tab PO SCH (10:57)
[2016-12-14] MEDS: Pantoprazole 40 mg EC Tab PO SCH (10:57)
[2016-12-14] MEDS: Fluticasone-Salmeterol 250-50mcg Diskus IH SCH (11:10)
[2016-12-14] MEDS ORDERED: Lactated Ringer's 1,000 ML IV ONE ×2 (15:53→17:14)
[2016-12-14] MEDS ORDERED: Propofol 10 mg/ml Inj (20 ML) ONE (16:39)
[2016-12-14] MEDS ORDERED: Midazolam 2 MG/2 ML VIAL ONE (16:39)
[2016-12-14] MEDS ORDERED: HYDROmorphone 0.5 mg/0.5 ml ISec IVP PRN (16:44)
[2016-12-14] MEDS ORDERED: Iohexol 240 (50 ml) ONE (16:46)
--- NOTE | 2016-12-14 17:23 | RAD ---
HISTORY: HEMATURIA/RIGHT HYDRONEPHROSIS COMPARISON: 11/22/2016 FINDINGS: A right-sided ureteral stent is visualized in customary position on the first ticket taker film followed by removal on the 2nd ticket taker film. BOWEL: There is gas in the colon. No obstruction. No free air. BONES: There is severe levoscoliosis in the lumbar spine. There is widening of the left sacroiliac joint and periarticular sclerosis which may represent nonspecific sacroiliitis. OTHER FINDINGS: None. IMPRESSION: Status post removal of right ureteral stent.
--- NOTE | 2016-12-14 18:25 | CP.PCM.PN ---
<Shin Cuellar - Last Filed: 12/14/16 18:22> Subjective - Date & Time of Evaluation Date of Evaluation: 12/14/16 Time of Evaluation: 07:45 - Subjective Subjective: PGY1 Medicine Note for Dr. Arana Patient seen and examined this morning at bedside. Patient states that he is in a considerable amount of pain because he has not had any pain medication since late last night. The pain is primary in his right flank with some diffuse abdominal pain. Patient states he is still urinating bright red blood. Patient is currently NPO for a procedure with Dr. Harry Pisano this afternoon. Patient denies f/c, n/v, d/c, sob or cp. Objective - Vital Signs/Intake and Output Vital Signs (last 24 hours): Temp Pulse Resp BP Pulse Ox 98.6 F 56 L 20 119/67 95 12/14/16 15:24 12/14/16 15:24 12/14/16 15:24 12/14/16 15:24 12/14/16 15:24 - Medications Medications: Current Medications Albuterol (Ventolin Hfa 90 Mcg/Actuation (8 G)) 2 puff INH RQ4 PRN PRN Reason: Shortness of Breath Aspirin (Aspirin Chewable) 81 mg PO DAILY [facility] Last Admin: 12/14/16 10:40 Dose: Not Given Bupropion HCl (Wellbutrin Xl) 150 mg PO DAILY [facility] Last Admin: 12/14/16 10:57 Dose: 150 mg Digoxin (Lanoxin) 0.125 mg PO DAILY@1800 [facility] Diltiazem HCl (Cardizem) 30 mg PO QID [facility] Last Admin: 12/14/16 14:50 Dose: 30 mg Hydromorphone HCl (Dilaudid) 0.5 mg IVP Q10M PRN PRN Reason: Pain, moderate (4-7) Stop: 12/14/16 18:45 Metoprolol Tartrate (Lopressor) 25 mg PO BID [facility] Last Admin: 12/14/16 10:58 Dose: 25 mg Morphine Sulfate (Morphine) 2 mg SC Q4 PRN PRN Reason: Pain, severe (8-10) Last Admin: 12/14/16 13:08 Dose: 2 mg Morphine Sulfate (Morphine Extended Release Tab) 15 mg PO Q12 [facility] Last Admin: 08/15/17 10:50 Dose: 15 mg Pantoprazole Sodium (Protonix Ec Tab) 40 mg PO DAILY [facility] Last Admin: 12/14/16 10:57 Dose: 40 mg Paroxetine HCl (Paxil) 40 mg PO DAILY [facility] Last Admin: 12/14/16 10:50 Dose: 40 mg Rosuvastatin Calcium (Crestor) 2.5 mg PO HS [facility] Fluticasone/Salmeterol (Advair Diskus 250/50) 1 puff IH RQD [facility] Last Admin: 12/14/16 11:10 Dose: Not Given - Labs Labs: 12/14/16 06:07 12/14/16 06:07 PT 11.8 SECONDS (9.7-12.2) 12/14/16 06:07 INR 1.1 12/14/16 06:07 APTT 31 SECONDS (21-34) 12/14/16 06:07 - Constitutional Appears: Non-toxic, No Acute Distress - Head Exam Head Exam: ATRAUMATIC, NORMOCEPHALIC - Eye Exam Eye Exam: EOMI, Normal appearance - ENT Exam ENT Exam: Mucous Membranes Moist - Respiratory Exam Respiratory Exam: Clear to Ausculation Bilateral, NORMAL BREATHING PATTERN. absent: Accessory Muscle Use, Wheezes, Respiratory Distress - Cardiovascular Exam Cardiovascular Exam: Irregular Rhythm, +S1, +S2 - GI/Abdominal Exam GI & Abdominal Exam: Soft, Tenderness (diffuse), Normal Bowel Sounds. absent: Distended, Guarding, Rigid - Back Exam Back Exam: CVA tenderness (R) (extremely tender). absent: CVA tenderness (L), paraspinal tenderness, rash noted - Neurological Exam Neurological Exam: Alert, Awake, Oriented x3 - Psychiatric Exam Psychiatric exam: Normal Affect, Normal Mood - Skin Skin Exam: Dry, Normal Color, Warm Assessment and Plan - Assessment and Plan (Free Text) Plan: 1. Hematuria UA not clean catch: 2+ protein, 3+ blood, 15 epithelial cells Patient to have procedure with Dr. Pisano in afternoon 2. COPD continue advair and albuterol 3. HTN continue metoprolol 25mg BID 4. Atrial Fibrillation continue xarelto continue cardizem continue digoxin 5. Spinal stenosis continue MS contin 15mg ER BID 6. HLD crestor 2.5mg (equivalent to home med simvastatin 10mg) 7. PTSD/ Anxiety/ Depression continue bupropion XL 150mg daily paxil 40mg daily 8. Prophylactic measure xarelto 20mg daily - HELD DUE TO HEMATURIA. Holding all anti-coag on patient at this time. SCDs Fall risk protocol, 1:1 due to history multiple falls PT eval Case discussed with Dr. Sumit Cuellar PGY1 <Adolfo Arana - Last Filed: 12/15/16 14:16> Objective - Vital Signs/Intake and Output Vital Signs (last 24 hours): Temp Pulse Resp BP Pulse Ox 98.3 F 51 L 20 128/74 96 12/14/16 23:30 12/14/16 23:30 12/14/16 23:30 12/15/16 09:55 12/14/16 23:30 - Medications Medications: Current Medications Albuterol (Ventolin Hfa 90 Mcg/Actuation (8 G)) 2 puff INH RQ4 PRN PRN Reason: Shortness of Breath Aspirin (Aspirin Chewable) 81 mg PO DAILY [facility] Last Admin: 12/15/16 09:55 Dose: 81 mg Bupropion HCl (Wellbutrin Xl) 150 mg PO DAILY [facility] Last Admin: 12/15/16 09:55 Dose: 150 mg Digoxin (Lanoxin) 0.125 mg PO DAILY@1800 [facility] Last Admin: 12/14/16 18:50 Dose: Not Given Diltiazem HCl (Cardizem) 30 mg PO QID [facility] Last Admin: 12/15/16 13:13 Dose: 30 mg Metoprolol Tartrate (Lopressor) 25 mg PO BID [facility] Last Admin: 12/15/16 09:55 Dose: 25 mg Morphine Sulfate (Morphine) 2 mg SC Q4 PRN PRN Reason: Pain, severe (8-10) Last Admin: 12/15/16 00:53 Dose: 2 mg Morphine Sulfate (Morphine Extended Release Tab) 15 mg PO Q12 [facility] Last Admin: 12/15/16 11:55 Dose: 15 mg Pantoprazole Sodium (Protonix Ec Tab) 40 mg PO DAILY [facility] Last Admin: 12/15/16 09:55 Dose: 40 mg Paroxetine HCl (Paxil) 40 mg PO DAILY [facility] Last Admin: 12/15/16 09:55 Dose: 40 mg Rosuvastatin Calcium (Crestor) 2.5 mg PO HS [facility] Last Admin: 12/14/16 21:17 Dose: 2.5 mg Fluticasone/Salmeterol (Advair Diskus 250/50) 1 puff IH RQD [facility] Last Admin: 12/15/16 13:11 Dose: 1 puff - Labs Labs: PT 11.8 SECONDS (9.7-12.2) 12/14/16 06:07 INR 1.1 12/14/16 06:07 APTT 31 SECONDS (21-34) 12/14/16 06:07 Attending/Attestation - Attestation I have personally seen and examined this patient.: Yes I have fully participated in the care of the patient.: Yes I have reviewed all pertinent clinical information, including history, physical exam and plan: Yes Notes (Text): 12/15/16 14:15 Patient was seen and examined at bedside with the resident Plan for cystoscopy today by urology Hold anticoagulation and antiplatelet therapy. Discussed the plan of care with the resident and agree with the above history and physical and assessment/plan documented.
[2016-12-14] MEDS: Digoxin 125 mcg (0.125 mg) Tab PO SCH (18:50)
[2016-12-14] MEDS: Rosuvastatin Calcium 2.5 mg Tab PO SCH (21:17)
--- NOTE | 2016-12-15 04:33 | HP ---
UROLOGY EMERGENCY AND HISTORY AND PHYSICAL REASON FOR ADMISSION: Gross hematuria. HISTORY OF PRESENT ILLNESS: This is a very pleasant gentleman, who has multiple medical issues. He is on Xarelto or some other blood thinner. He has gross hematuria. We initially met the patient in the Hospital ER where we placed a stent for right hydronephrosis. He also has a stone in his kidney. We did not see any stone in the ureter. In fact, the exact etiology of that is unclear, but we did place the stent at that time. See the previously dictated notes. Meanwhile the patient then subsequently went home and we actually tracked him down to get him to come to the office, he actually visited the ER a few times in between. Those notes are dictated separately. Now that we bring him into the hospital as an emergency with his gross hematuria; although again his vital signs have been stable. His hematocrit have been stable. When we bring him in, we are going to do a cysto, removal of the stent, we may need to do a ureteroscopy, laser lithotripsy, depending if we could see the stone or not, he may have even passed the stone. He is not really sure and his history is not exactly perfectly reliable in this case. Either way with the gross hematuria and the several visits to the ER we are going to bring him to the emergency and try to get him on the scheduled today for a stent or tomorrow. PAST MEDICAL AND SURGICAL HISTORY: As listed on the chart. REVIEW OF SYSTEMS: This is very significant. He says he cannot walk. He has pain all over. He lives in a homeless assisted and is seeking to remain in the hospital for as long as possible. We will have to address this and see if we can get Social Work involved. He is here in the hospital now with his fiancee. I also wanted to mention that yesterday he was in the hospital with his fiancee apparently and also spoke to the patient and the fiancee. I text messages and I spoke to them and I explained to them that the walking and all the other issues are significant and very important, but they are not usually addressed per se by the urologist, who is going to address them with the kidney stone issues. We discussed this actually at great length. The etiology is unclear and the recommendations also need to be solved out. He also actually had come to the office on Tuesday, which is 12/10/2016 with his fiancee and had discussion at that time. We discussed that as well. MEDICATIONS: See chart. ALLERGIES: PHYSICAL EXAMINATION GENERAL: Well-nourished male, in no apparent distress. VITAL SIGNS: Within normal limits. LUNGS: Clear. HEART: S1 and S2. ABDOMEN: Soft, nontender. No CVA tenderness, it is a little distended. No rebound or guarding. GENITOURINARY: Normal phallus without discharge. No testicular masses. RECTAL: From the left cysto is about 30 g prostate of smooth. LABORATORY DATA: See chart. DIAGNOSES: Hematuria, urolithiasis, hydronephrosis, and multiple other medical problems. ASSESSMENT: In summary, this is a very pleasant gentleman. At this point, we are going to bring the patient as an emergency. I spoke to the hospitalist, they actually refused to accept the patient as an admission given his history that his general history and his disposition planning is somewhat challenging. So from Urology standpoint, we are going to admit him and I discussed with the patient. We will keep him in the hospital. I am going to try to bring him to the OR as quickly if the OR is available if not today perhaps tomorrow on 12/13/2016 or 12/14/2016 depending. We will provide some analgesics and then see if we can get Social Work involvement and assist this patient a little more. He does have his fiancee and I did discuss with them the possibilities for that as well for assistance. In the meantime we are going to try to see if we can delineate the source of the blood. I have not quite seen it at this point. When he is in the office, I did see blood in the urine. That was noteworthy. PLAN: So the plan for today is; 1. Emergency admission. 2. Maintain n.p.o. 3. The patient will be at the OR if possible today, if not, tomorrow and then further plans will follow, Social Work in assessment. Etienne Pisano MD
--- NOTE | 2016-12-15 05:12 | OP ---
PROCEDURE DATE: 12/14/2016 PREOPERATIVE DIAGNOSES: Urolithiasis, hematuria, hydronephrosis, and flank pain. POSTOPERATIVE DIAGNOSES: Urolithiasis, hematuria, hydronephrosis and flank pain, no evidence of a stone. COMPLICATIONS: There were no complications. PROCEDURE: Cystoscopy, removal of right double-J stent and KUB. ESTIMATED BLOOD LOSS: Less than 10 mL. FINDINGS: 1. The anterior urethra was normal. 2. No strictures on reviewing it and it was minimally to moderately visually occlusive about 2 to 3 cm. 3. There is no direct gross bleeding. There are no lesions *------*. 4. The stent was identified and removed. 5. There was tremendous amount of bowel gas noted. No evidence of obstruction, but there was certainly a tremendous amount of bowel gas with distal air noted. INDICATIONS FOR THE PROCEDURE: See the history and physical for further details. A very pleasant gentleman here for the above procedure. We discussed options. We discussed the options of laser lithotripsy. I am very worried with him of a bleeding disorder. So, therefore, we are just removing the stent at most as nothing visible on the x-ray, not even a stone. I was worried about bleeding. DESCRIPTION OF PROCEDURE: After informed consent obtained, the patient was placed on the table, routine monitors were placed. Time-out was called to confirm the correct patient *------* but does not definitively show any stones. The stent is in good location, tremendous amount of bowel gas noted. We introduced the scope via the urethra. No strictures on reviewing it and it is moderately visually occlusive. No other major abnormalities detected. Double-J stent was identified and removed. We inspected the bladder carefully. I did not see any bladder lesion. I did not see any abnormalities. Cystoscope was removed. The patient tolerated the procedure well without complication. ADDENDUM: I explained to the patient again as I have done before today his risks, benefits and treatment alternatives. I also explained the patient that we are planning to remove the stone. I also explained the patient in great, great detail that his other issues of ambulation, his hip pain, his difficulty walking, his living in a homeless detention and all the other issues are very concerning to me, but we may not be able to automatically admit the patient to the hospital and keep him in the hospital. So, we are going to see if we can get some social work involved and then make some plans from there. Etienne Pisano MD
--- NOTE | 2016-12-15 07:50 | CP.PCM.PN ---
<Shin Cuellar - Last Filed: 12/15/16 17:09> Subjective - Date & Time of Evaluation Date of Evaluation: 12/15/16 Time of Evaluation: 07:50 - Subjective Subjective: PGY1 Medicine Note for Dr. Arana Patient seen and examined this morning at bedside. Patient states that he has a headache that is located directly behind his right eye. He states that he is also experiencing some left arm numbness/weakness. These pains are not new for him, as he has experienced them on previous admissions. He states he did experience some nausea but it has since resolved. Denies f/c, d/c, sob, cp, dizziness or lightheadedness. Objective - Vital Signs/Intake and Output Vital Signs (last 24 hours): Temp Pulse Resp BP Pulse Ox 98.3 F 51 L 20 113/61 96 12/14/16 23:30 12/14/16 23:30 12/14/16 23:30 12/14/16 23:30 12/14/16 23:30 Intake and Output: 12/15/16 12/15/16 06:59 18:59 Intake Total 550 Output Total 400 Balance 150 - Medications Medications: Current Medications Albuterol (Ventolin Hfa 90 Mcg/Actuation (8 G)) 2 puff INH RQ4 PRN PRN Reason: Shortness of Breath Aspirin (Aspirin Chewable) 81 mg PO DAILY [facility] Last Admin: 12/14/16 10:40 Dose: Not Given Bupropion HCl (Wellbutrin Xl) 150 mg PO DAILY [facility] Last Admin: 12/14/16 10:57 Dose: 150 mg Digoxin (Lanoxin) 0.125 mg PO DAILY@1800 [facility] Last Admin: 12/14/16 18:50 Dose: Not Given Diltiazem HCl (Cardizem) 30 mg PO QID [facility] Last Admin: 12/14/16 21:26 Dose: 30 mg Metoprolol Tartrate (Lopressor) 25 mg PO BID [facility] Last Admin: 12/14/16 18:48 Dose: 25 mg Morphine Sulfate (Morphine) 2 mg SC Q4 PRN PRN Reason: Pain, severe (8-10) Last Admin: 12/15/16 00:53 Dose: 2 mg Morphine Sulfate (Morphine Extended Release Tab) 15 mg PO Q12 [facility] Last Admin: 12/14/16 21:17 Dose: 15 mg Pantoprazole Sodium (Protonix Ec Tab) 40 mg PO DAILY [facility] Last Admin: 12/14/16 10:57 Dose: 40 mg Paroxetine HCl (Paxil) 40 mg PO DAILY [facility] Last Admin: 12/14/16 10:50 Dose: 40 mg Rosuvastatin Calcium (Crestor) 2.5 mg PO HS [facility] Last Admin: 12/14/16 21:17 Dose: 2.5 mg Fluticasone/Salmeterol (Advair Diskus 250/50) 1 puff IH RQD [facility] Last Admin: 12/14/16 11:10 Dose: Not Given - Labs Labs: 12/14/16 06:07 12/14/16 06:07 PT 11.8 SECONDS (9.7-12.2) 12/14/16 06:07 INR 1.1 12/14/16 06:07 APTT 31 SECONDS (21-34) 12/14/16 06:07 - Constitutional Appears: Non-toxic, No Acute Distress - Head Exam Head Exam: ATRAUMATIC, NORMOCEPHALIC - Eye Exam Eye Exam: EOMI, PERRL. absent: Nystagmus Pupil Exam: NORMAL ACCOMODATION, PERRL Additional comments: Patient wearing sunglasses during examination due to photophobia. - ENT Exam ENT Exam: Mucous Membranes Moist - Respiratory Exam Respiratory Exam: Clear to Ausculation Bilateral, NORMAL BREATHING PATTERN. absent: Accessory Muscle Use, Rales, Wheezes, Respiratory Distress - Cardiovascular Exam Cardiovascular Exam: Irregular Rhythm, +S1, +S2 - GI/Abdominal Exam GI & Abdominal Exam: Soft, Normal Bowel Sounds. absent: Distended, Rigid, Tenderness - Extremities Exam Extremities Exam: absent: Calf Tenderness, Pedal Edema - Back Exam Back Exam: CVA tenderness (R). absent: CVA tenderness (L), rash noted - Neurological Exam Neurological Exam: Alert, Awake, Oriented x3 Neuro motor strength exam: Left Upper Extremity: 4, Right Upper Extremity: 5, Left Lower Extremity: 5, Right Lower Extremity: 5 - Psychiatric Exam Psychiatric exam: Normal Affect, Normal Mood - Skin Skin Exam: Dry, Normal Color, Warm Assessment and Plan - Assessment and Plan (Free Text) Plan: 1. Hematuria POD 1 s/p cysto with R ureter stent removal with Dr. Harry Pisano Patient is urinating on his own. States that the hematuria is currently the same , as his urine appears bright red. Start patient on Flomax 0.4mg daily Start patient on Cipro 500mg PO BID 2. COPD continue advair and albuterol 3. HTN continue metoprolol 25mg BID 4. Atrial Fibrillation continue xarelto continue cardizem continue digoxin 5. Spinal stenosis continue MS contin 15mg ER BID 6. HLD crestor 2.5mg (equivalent to home med simvastatin 10mg) 7. PTSD/ Anxiety/ Depression continue bupropion XL 150mg daily paxil 40mg daily 8. Prophylactic measure xarelto 20mg daily - HELD DUE TO HEMATURIA. Holding all anti-coag on patient at this time. SCDs Fall risk protocol, 1:1 due to history multiple falls PT eval Head CT w/o (12/15) - showed no intracranial mass, hemorrhage or evidence of acute infarct. Nonspecific trace left mastoid effusion. Chronic microvascular white matter ischemic change. Case discussed with Dr. Sumit Cuellar PGY1 <Adolfo Arana - Last Filed: 12/16/16 16:09> Objective - Vital Signs/Intake and Output Vital Signs (last 24 hours): Temp Pulse Resp BP Pulse Ox 98.5 F 55 L 20 116/67 97 12/16/16 08:45 12/16/16 08:45 12/16/16 08:45 12/16/16 09:23 12/16/16 08:45 - Medications Medications: Current Medications Albuterol (Ventolin Hfa 90 Mcg/Actuation (8 G)) 2 puff INH RQ4 PRN PRN Reason: Shortness of Breath Aspirin (Aspirin Chewable) 81 mg PO DAILY [facility] Last Admin: 12/16/16 09:22 Dose: 81 mg Bupropion HCl (Wellbutrin Xl) 150 mg PO DAILY [facility] Last Admin: 12/16/16 09:22 Dose: 150 mg Digoxin (Lanoxin) 0.125 mg PO DAILY@1800 [facility] Last Admin: 12/15/16 18:45 Dose: 0.125 mg Diltiazem HCl (Cardizem) 30 mg PO QID [facility] Last Admin: 12/16/16 13:37 Dose: 30 mg Ciprofloxacin (Cipro 400mg/200ml Dsw) 400 mg in 200 mls @ 133 mls/hr IVPB Q12H [facility] Last Admin: 12/16/16 06:38 Dose: 133 mls/hr Metoprolol Tartrate (Lopressor) 25 mg PO BID [facility] Last Admin: 12/16/16 09:23 Dose: 25 mg Morphine Sulfate (Morphine) 2 mg SC Q4 PRN PRN Reason: Pain, severe (8-10) Last Admin: 12/16/16 13:56 Dose: 2 mg Morphine Sulfate (Morphine Extended Release Tab) 15 mg PO Q12 [facility] Last Admin: 12/16/16 09:22 Dose: 15 mg Pantoprazole Sodium (Protonix Ec Tab) 40 mg PO DAILY [facility] Last Admin: 12/16/16 09:22 Dose: 40 mg Paroxetine HCl (Paxil) 40 mg PO DAILY [facility] Last Admin: 12/16/16 09:22 Dose: 40 mg Rosuvastatin Calcium (Crestor) 2.5 mg PO HS [facility] Last Admin: 12/15/16 22:26 Dose: 2.5 mg Fluticasone/Salmeterol (Advair Diskus 250/50) 1 puff IH RQD [facility] Last Admin: 12/16/16 08:05 Dose: 1 puff Tamsulosin HCl (Flomax) 0.4 mg PO DAILY [facility] Last Admin: 12/16/16 09:22 Dose: 0.4 mg - Labs Labs: 12/16/16 11:28 12/16/16 11:28 PT 11.8 SECONDS (9.7-12.2) 12/14/16 06:07 INR 1.1 12/14/16 06:07 APTT 31 SECONDS (21-34) 12/14/16 06:07 Attending/Attestation - Attestation I have personally seen and examined this patient.: Yes I have fully participated in the care of the patient.: Yes I have reviewed all pertinent clinical information, including history, physical exam and plan: Yes Notes (Text): 12/16/16 16:08 Patient was seen and examined at bedside with the resident Continues to complain of hematuria Status post cystoscopy and ureteral stent removal Continue antibiotics Discussed the plan of care with the resident and agree with the assessment and plan documented.
--- NOTE | 2016-12-15 08:31 | CT ---
PROCEDURE: CT HEAD WITHOUT CONTRAST. HISTORY: Headache with left arm numbness and blurred vision COMPARISON: 11/15/2016 TECHNIQUE: Axial computed tomography images were obtained through the head/brain without intravenous contrast. Radiation dose: Total exam DLP = 866.81 mGy-cm. This CT exam was performed using one or more of the following dose reduction techniques: Automated exposure control, adjustment of the mA and/or kV according to patient size, and/or use of iterative reconstruction technique. FINDINGS: HEMORRHAGE: No intracranial hemorrhage. BRAIN: No mass effect or edema. Minimal atrophy. Patchy foci of deep and subcortical white matter lucency consistent with microvascular white matter ischemic change. No evidence of acute infarct. VENTRICLES: Unremarkable. No hydrocephalus. CALVARIUM: Unremarkable. PARANASAL SINUSES: Unremarkable as visualized. No significant inflammatory changes. MASTOID AIR CELLS: Nonspecific trace left mastoid effusion. OTHER FINDINGS: None. IMPRESSION: No intracranial mass, hemorrhage or evidence of acute infarct. Nonspecific trace left mastoid effusion. Chronic microvascular white matter ischemic change.
[2016-12-15] MEDS: Pantoprazole 40 mg EC Tab PO SCH (09:55)
[2016-12-15] MEDS: buPROPion 150 mg/24 Hours XL Tab PO SCH (09:55)
[2016-12-15 11:33] LABS: BASO % 0.4 % (0.0-2.0); EOS # 0.1 K/uL (0.0-0.7); EOS % 1.3 % (0.0-4.0); HEMATOCRIT 32.8 % (35.0-51.0); LYMPH # 1.3 K/uL (1.0-4.3); LYMPH % 27.1 % (20.0-40.0); MEAN CELL VOLUME 90.2 fL (80.0-94.0); MEAN CORPUSCULAR HEMOGLOBIN 29.8 pg (27.0-31.0); MEAN CORPUSCULAR HGB CONC 33.1 g/dL (33.0-37.0); MEAN PLATELET VOLUME 7.5 fL (7.2-11.7); MONO # 0.6 K/uL (0.0-0.8); MONO % 12.9 % (0.0-10.0); NRBC % 0.1 % (0.0-2.0); RED CELL DISTRIBUTION WIDTH 13.4 % (11.5-14.5); WHITE BLOOD COUNT 4.7 K/uL (4.8-10.8)
[2016-12-15] MEDS ORDERED: Magnesium Citrate Oral SOL (300 ml) PO ONE (11:37)
[2016-12-15 11:38] LABS: CHLORIDE 104 mmol/L (98-107); POTASSIUM 4.4 mmol/L (3.6-5.2); SODIUM 140 mmol/L (132-148)
[2016-12-15 11:40] LABS: GFR AFRICAN-AMERICAN > 60
[2016-12-15 11:41] LABS: ALB/GLOB RATIO 1.1 (1.0-2.1); ALKALINE PHOSPHATASE 62 U/L (38-126); ALT/SGPT 43 U/L (21-72); AST/SGOT 37 U/L (17-59); BILIRUBIN,TOTAL 0.5 mg/dL (0.2-1.3); BLOOD UREA NITROGEN 9 mg/dL (9-20); CALCIUM 8.8 mg/dl (8.6-10.4); CARBON DIOXIDE 29 mmol/L (22-30); GLUCOSE,RANDOM 84 mg/dL (75-110)
[2016-12-15] MEDS: Morphine 15 mg SR Tab PO SCH ×2 (11:55→22:26)
--- NOTE | 2016-12-15 12:36 | PCM.URO ---
Urology Progress Note - General General: Tolerating Diet - Subjective Abdominal Pain: Yes Flank Pain: Yes Nausea: No Vomiting: No Voiding Well: Yes Dysuria: No Hematuria: Yes [place]: Yes Dsypnea: No Chest Pain: No Fever & Chills: No Other: feeling well - Objective Lab Studies: Reviewed Lab Results Last 24 Hours: Laboratory Results - last 24 hr 12/15/16 12/15/16 11:21 11:21 WBC 4.7 L RBC 3.64 L Hgb 10.8 L Hct 32.8 L MCV 90.2 MCH 29.8 MCHC 33.1 RDW 13.4 Plt Count 225 MPV 7.5 Neut % (Auto) 58.3 Lymph % (Auto) 27.1 [place] % (Auto) 12.9 H Eos % (Auto) 1.3 Baso % (Auto) 0.4 Neut # 2.8 Lymph # 1.3 [place] # 0.6 Eos # 0.1 Baso # 0.0 Sodium 140 Potassium 4.4 Chloride 104 Carbon Dioxide 29 Anion Gap 11 BUN 9 Creatinine 0.8 Est GFR ( Amer) > 60 Est GFR (Non-Af Amer) > 60 Random Glucose 84 Calcium 8.8 Total Bilirubin 0.5 AST 37 ALT 43 Alkaline Phosphatase 62 Total Protein 6.0 L Albumin 3.2 L Globulin 2.8 Albumin/Globulin Ratio 1.1 Intake & Output: Intake & Output 12/14/16 12/15/16 12/15/16 18:59 06:59 18:59 Intake Total 550 Output Total 400 Balance 150 Intake: Intake, IV Amount 200 Left Antecubital 200 Oral 350 Output: Urine 400 Urine, Voided 400 Vital Signs: Vital Signs - 24 hr 12/14/16 12/14/16 12/14/16 15:24 17:14 17:30 Temperature 98.6 F 97.4 F L Pulse Rate 56 L 54 L 60 Respiratory 20 11 L 10 L Rate Blood Pressure 119/67 119/73 118/74 O2 Sat by Pulse 95 99 100 Oximetry 12/14/16 12/14/16 12/14/16 17:45 18:00 18:48 Temperature 97.9 F Pulse Rate 62 56 L Respiratory 12 14 Rate Blood Pressure 120/76 126/69 110/62 O2 Sat by Pulse 99 99 Oximetry 12/14/16 12/14/16 12/15/16 21:24 23:30 09:55 Temperature 98.3 F Pulse Rate 64 51 L Respiratory 20 Rate Blood Pressure 128/78 113/61 128/74 O2 Sat by Pulse 96 Oximetry - Physical Exam Abdominal Exam: Soft, Non-Tender, Non-Distended Bowel Sounds: Normal Back: No CVA Tenderness Genitalia: Without Inflammation Urine Color: Clear, Yellow - Plan Additional Information: IMP: STABLE POST CYSTO, STENT REMOVAL - Date & Time of Note Date: 12/15/16 Time: 11:35
[2016-12-15] MEDS: Fluticasone-Salmeterol 250-50mcg Diskus IH SCH (13:11)
[2016-12-15] MEDS: Digoxin 125 mcg (0.125 mg) Tab PO SCH (18:45)
[2016-12-15] MEDS: Rosuvastatin Calcium 2.5 mg Tab PO SCH (22:26)
[2016-12-16] MEDS: Ciprofloxacin 400mg/200ml D5W 400 MG/200 ML BAG IVPB SCH ×2 (06:38→17:23)
[2016-12-16] MEDS: Fluticasone-Salmeterol 250-50mcg Diskus IH SCH (08:05)
[2016-12-16] MEDS: Morphine 15 mg SR Tab PO SCH ×2 (09:22→22:02)
[2016-12-16] MEDS: Pantoprazole 40 mg EC Tab PO SCH (09:22)
[2016-12-16] MEDS: buPROPion 150 mg/24 Hours XL Tab PO SCH (09:22)
[2016-12-16 11:38] LABS: BASO % 0.5 % (0.0-2.0); EOS # 0.1 K/uL (0.0-0.7); EOS % 1.5 % (0.0-4.0); HEMATOCRIT 32.4 % (35.0-51.0); LYMPH # 1.3 K/uL (1.0-4.3); LYMPH % 27.7 % (20.0-40.0); MEAN CELL VOLUME 89.7 fL (80.0-94.0); MEAN CORPUSCULAR HGB CONC 33.4 g/dL (33.0-37.0); MEAN PLATELET VOLUME 7.9 fL (7.2-11.7); MONO # 0.6 K/uL (0.0-0.8); MONO % 13.5 % (0.0-10.0); NRBC % 0.2 % (0.0-2.0); WHITE BLOOD COUNT 4.6 K/uL (4.8-10.8)
[2016-12-16 11:48] LABS: CHLORIDE 102 mmol/L (98-107)
[2016-12-16 11:49] LABS: POTASSIUM 4.2 mmol/L (3.6-5.2); SODIUM 139 mmol/L (132-148)
[2016-12-16 11:51] LABS: ALB/GLOB RATIO 1.2 (1.0-2.1); ALKALINE PHOSPHATASE 62 U/L (38-126); ALT/SGPT 47 U/L (21-72); AST/SGOT 43 U/L (17-59); BILIRUBIN,TOTAL 0.5 mg/dL (0.2-1.3); BLOOD UREA NITROGEN 9 mg/dL (9-20); CARBON DIOXIDE 29 mmol/L (22-30); GFR AFRICAN-AMERICAN > 60
[2016-12-16 11:52] LABS: CALCIUM 8.8 mg/dl (8.6-10.4); GLUCOSE,RANDOM 95 mg/dL (75-110)
--- NOTE | 2016-12-16 13:48 | CP.PCM.PN ---
<Shin Cuellar - Last Filed: 12/16/16 13:43> Subjective - Date & Time of Evaluation Date of Evaluation: 12/16/16 Time of Evaluation: 13:43 - Subjective Subjective: PGY1 Medicine Note for Dr. Arana Patient seen and examined this morning at bedside. Patient states that his headache is improved along with his pain, but he is still experiencing both. Patient states that his hematuria has not improved, saying, "it is the exact same. still bright red blood." Patient states that he has gotten a little nauseous and had the chills over night but has no other complaints. Denies bowel changes, sob, cp, lightheadedness or palpitations. Objective - Vital Signs/Intake and Output Vital Signs (last 24 hours): Temp Pulse Resp BP Pulse Ox 98.5 F 55 L 20 116/67 97 12/16/16 08:45 12/16/16 08:45 12/16/16 08:45 12/16/16 09:23 12/16/16 08:45 - Medications Medications: Current Medications Albuterol (Ventolin Hfa 90 Mcg/Actuation (8 G)) 2 puff INH RQ4 PRN PRN Reason: Shortness of Breath Aspirin (Aspirin Chewable) 81 mg PO DAILY [facility] Last Admin: 12/16/16 09:22 Dose: 81 mg Bupropion HCl (Wellbutrin Xl) 150 mg PO DAILY [facility] Last Admin: 12/16/16 09:22 Dose: 150 mg Digoxin (Lanoxin) 0.125 mg PO DAILY@1800 [facility] Last Admin: 12/15/16 18:45 Dose: 0.125 mg Diltiazem HCl (Cardizem) 30 mg PO QID [facility] Last Admin: 12/16/16 13:37 Dose: 30 mg Ciprofloxacin (Cipro 400mg/200ml Dsw) 400 mg in 200 mls @ 133 mls/hr IVPB Q12H [facility] Last Admin: 12/16/16 06:38 Dose: 133 mls/hr Metoprolol Tartrate (Lopressor) 25 mg PO BID [facility] Last Admin: 12/16/16 09:23 Dose: 25 mg Morphine Sulfate (Morphine) 2 mg SC Q4 PRN PRN Reason: Pain, severe (8-10) Last Admin: 12/16/16 06:31 Dose: 2 mg Morphine Sulfate (Morphine Extended Release Tab) 15 mg PO Q12 [facility] Last Admin: 12/16/16 09:22 Dose: 15 mg Pantoprazole Sodium (Protonix Ec Tab) 40 mg PO DAILY [facility] Last Admin: 12/16/16 09:22 Dose: 40 mg Paroxetine HCl (Paxil) 40 mg PO DAILY [facility] Last Admin: 12/16/16 09:22 Dose: 40 mg Rosuvastatin Calcium (Crestor) 2.5 mg PO HS [facility] Last Admin: 12/15/16 22:26 Dose: 2.5 mg Fluticasone/Salmeterol (Advair Diskus 250/50) 1 puff IH RQD [facility] Last Admin: 12/16/16 08:05 Dose: 1 puff Tamsulosin HCl (Flomax) 0.4 mg PO DAILY [facility] Last Admin: 12/16/16 09:22 Dose: 0.4 mg - Labs Labs: 12/16/16 11:28 12/16/16 11:28 PT 11.8 SECONDS (9.7-12.2) 12/14/16 06:07 INR 1.1 12/14/16 06:07 APTT 31 SECONDS (21-34) 12/14/16 06:07 - Constitutional Appears: Non-toxic, No Acute Distress - Head Exam Head Exam: ATRAUMATIC, NORMOCEPHALIC - Eye Exam Eye Exam: EOMI Additional comments: Patient still wearing sunglasses in the room to help with his headache. Still experiencing some photophobia, but says it has improved from yesterday. - ENT Exam ENT Exam: Mucous Membranes Moist - Respiratory Exam Respiratory Exam: Clear to Ausculation Bilateral, NORMAL BREATHING PATTERN. absent: Accessory Muscle Use, Respiratory Distress - Cardiovascular Exam Cardiovascular Exam: Irregular Rhythm, +S1, +S2 - GI/Abdominal Exam GI & Abdominal Exam: Soft, Tenderness (R sided tenderness to palpation ), Normal Bowel Sounds. absent: Distended - Extremities Exam Extremities Exam: absent: Calf Tenderness, Pedal Edema - Back Exam Back Exam: CVA tenderness (R). absent: CVA tenderness (L), rash noted - Neurological Exam Neurological Exam: Alert, Awake, Oriented x3 - Psychiatric Exam Psychiatric exam: Normal Affect, Normal Mood - Skin Skin Exam: Dry, Normal Color, Warm Assessment and Plan - Assessment and Plan (Free Text) Plan: 1. Hematuria POD 2 s/p cysto with R ureter stent removal with Dr. Harry Pisano Patient is urinating on his own. States that the hematuria is currently the same , as his urine appears bright red. Flomax 0.4mg daily Cipro 500mg PO BID 2. COPD continue advair and albuterol 3. HTN continue metoprolol 25mg BID 4. Atrial Fibrillation continue xarelto continue cardizem continue digoxin 5. Spinal stenosis continue MS contin 15mg ER BID 6. HLD crestor 2.5mg (equivalent to home med simvastatin 10mg) 7. PTSD/ Anxiety/ Depression continue bupropion XL 150mg daily paxil 40mg daily 8. Prophylactic measure xarelto 20mg daily - HELD DUE TO HEMATURIA. Holding all anti-coag on patient at this time. SCDs Fall risk protocol PT eval Head CT w/o (12/15) - showed no intracranial mass, hemorrhage or evidence of acute infarct. Nonspecific trace left mastoid effusion. Chronic microvascular white matter ischemic change. Case discussed with Dr. Sumit Cuellar PGY1 <Adolfo Arana - Last Filed: 12/16/16 17:49> Objective - Vital Signs/Intake and Output Vital Signs (last 24 hours): Temp Pulse Resp BP Pulse Ox 98.5 F 55 L 20 110/70 97 12/16/16 08:45 12/16/16 08:45 12/16/16 08:45 12/16/16 17:26 12/16/16 08:45 Intake and Output: 12/16/16 12/16/16 06:59 18:59 Intake Total 560 Balance 560 - Medications Medications: Current Medications Albuterol (Ventolin Hfa 90 Mcg/Actuation (8 G)) 2 puff INH RQ4 PRN PRN Reason: Shortness of Breath Aspirin (Aspirin Chewable) 81 mg PO DAILY [facility] Last Admin: 12/16/16 09:22 Dose: 81 mg Bupropion HCl (Wellbutrin Xl) 150 mg PO DAILY [facility] Last Admin: 12/16/16 09:22 Dose: 150 mg Digoxin (Lanoxin) 0.125 mg PO DAILY@1800 [facility] Last Admin: 12/16/16 17:26 Dose: 0.125 mg Diltiazem HCl (Cardizem) 30 mg PO QID [facility] Last Admin: 12/16/16 17:26 Dose: 30 mg Ciprofloxacin (Cipro 400mg/200ml Dsw) 400 mg in 200 mls @ 133 mls/hr IVPB Q12H [facility] Last Admin: 12/16/16 17:23 Dose: 133 mls/hr Metoprolol Tartrate (Lopressor) 25 mg PO BID [facility] Last Admin: 12/16/16 17:26 Dose: 25 mg Morphine Sulfate (Morphine) 2 mg SC Q4 PRN PRN Reason: Pain, severe (8-10) Last Admin: 12/16/16 13:56 Dose: 2 mg Morphine Sulfate (Morphine Extended Release Tab) 15 mg PO Q12 [facility] Last Admin: 12/16/16 09:22 Dose: 15 mg Morphine Sulfate (Morphine) 2 mg SC Q4H PRN PRN Reason: severe pain. ( 8-10) Pantoprazole Sodium (Protonix Ec Tab) 40 mg PO DAILY [facility] Last Admin: 12/16/16 09:22 Dose: 40 mg Paroxetine HCl (Paxil) 40 mg PO DAILY [facility] Last Admin: 12/16/16 09:22 Dose: 40 mg Rosuvastatin Calcium (Crestor) 2.5 mg PO HS [facility] Last Admin: 12/15/16 22:26 Dose: 2.5 mg Fluticasone/Salmeterol (Advair Diskus 250/50) 1 puff IH RQD [facility] Last Admin: 12/16/16 08:05 Dose: 1 puff Tamsulosin HCl (Flomax) 0.4 mg PO DAILY [facility] Last Admin: 12/16/16 09:22 Dose: 0.4 mg - Labs Labs: 12/16/16 11:28 12/16/16 11:28 PT 11.8 SECONDS (9.7-12.2) 12/14/16 06:07 INR 1.1 12/14/16 06:07 APTT 31 SECONDS (21-34) 12/14/16 06:07 Attending/Attestation - Attestation I have personally seen and examined this patient.: Yes I have fully participated in the care of the patient.: Yes I have reviewed all pertinent clinical information, including history, physical exam and plan: Yes Notes (Text): 12/16/16 17:48 Patient was seen and examined at bedside with the resident Patient still complains of for hematuria Headache and on numbness has improved Continue current management Discussed the plan of care with the resident agree this hasn't been documented above.
[2016-12-16] MEDS: Digoxin 125 mcg (0.125 mg) Tab PO SCH (17:26)
[2016-12-16 17:28] VITALS: PULSE 70
[2016-12-16] MEDS: Rosuvastatin Calcium 2.5 mg Tab PO SCH (22:02)
[2016-12-17 01:44] VITALS: O2SAT 96
[2016-12-17] MEDS: Ciprofloxacin 400mg/200ml D5W 400 MG/200 ML BAG IVPB SCH (05:25)
[2016-12-17] MEDS: Fluticasone-Salmeterol 250-50mcg Diskus IH SCH (07:41)
[2016-12-17 07:48] LABS: BASO % 0.7 % (0.0-2.0); EOS # 0.1 K/uL (0.0-0.7); EOS % 3.1 % (0.0-4.0); HEMATOCRIT 32.5 % (35.0-51.0); LYMPH # 1.3 K/uL (1.0-4.3); LYMPH % 31.7 % (20.0-40.0); MEAN CELL VOLUME 90.3 fL (80.0-94.0); MEAN CORPUSCULAR HEMOGLOBIN 29.8 pg (27.0-31.0); MEAN PLATELET VOLUME 7.6 fL (7.2-11.7); MONO # 0.5 K/uL (0.0-0.8); MONO % 11.3 % (0.0-10.0); WHITE BLOOD COUNT 4.1 K/uL (4.8-10.8)
[2016-12-17 08:00] LABS: CHLORIDE 104 mmol/L (98-107)
[2016-12-17 08:01] LABS: POTASSIUM 3.9 mmol/L (3.6-5.2); SODIUM 142 mmol/L (132-148)
[2016-12-17 08:03] LABS: ALB/GLOB RATIO 1.1 (1.0-2.1); ALKALINE PHOSPHATASE 60 U/L (38-126); ALT/SGPT 50 U/L (21-72); AST/SGOT 42 U/L (17-59); BILIRUBIN,TOTAL 0.5 mg/dL (0.2-1.3); BLOOD UREA NITROGEN 8 mg/dL (9-20); CARBON DIOXIDE 29 mmol/L (22-30); GFR AFRICAN-AMERICAN > 60; GLUCOSE,RANDOM 100 mg/dL (75-110); TOTAL PROTEIN 6.1 g/dL (6.3-8.3)
[2016-12-17 08:04] LABS: CALCIUM 8.8 mg/dl (8.6-10.4)
[2016-12-17] MEDS: Morphine 15 mg SR Tab PO SCH (09:17)
[2016-12-17] MEDS: Pantoprazole 40 mg EC Tab PO SCH (09:17)
[2016-12-17] MEDS: buPROPion 150 mg/24 Hours XL Tab PO SCH (09:18)
[2016-12-17 16:24] VITALS: BP 122/77; PULSE 65; RESP 20; TEMP 98.2
--- NOTE | 2016-12-17 17:30 | CP.PCM.PN ---
<Shin Cuellar - Last Filed: 12/17/16 17:27> Subjective - Date & Time of Evaluation Date of Evaluation: 12/17/16 Time of Evaluation: 05:20 - Subjective Subjective: PGY1 Medicine Note for Dr. Arana Patient seen and examined this morning at bedside. States he no longer has a headache. Says he is feeling well overall. Patient says he is still experiencing hematuria but that it is currently improving. Denies f/c, n/v, bowel changes, sob, cp, lightheadedness or palpitations Objective - Vital Signs/Intake and Output Vital Signs (last 24 hours): Temp Pulse Resp BP Pulse Ox 98.2 F 65 20 122/77 96 12/17/16 15:01 12/17/16 15:01 12/17/16 15:01 12/17/16 15:01 12/17/16 09:21 Intake and Output: 12/17/16 12/17/16 06:59 18:59 Intake Total 700 Balance 700 - Labs Labs: 12/17/16 07:43 12/17/16 07:43 PT 11.8 SECONDS (9.7-12.2) 12/14/16 06:07 INR 1.1 12/14/16 06:07 APTT 31 SECONDS (21-34) 12/14/16 06:07 - Constitutional Appears: Non-toxic, No Acute Distress - Head Exam Head Exam: ATRAUMATIC, NORMOCEPHALIC - Eye Exam Eye Exam: EOMI - ENT Exam ENT Exam: Mucous Membranes Moist - Respiratory Exam Respiratory Exam: Clear to Ausculation Bilateral, NORMAL BREATHING PATTERN. absent: Accessory Muscle Use, Wheezes, Respiratory Distress - Cardiovascular Exam Cardiovascular Exam: Irregular Rhythm, +S1, +S2 - GI/Abdominal Exam GI & Abdominal Exam: Soft, Normal Bowel Sounds. absent: Distended, Guarding, Rigid, Tenderness - Extremities Exam Extremities Exam: absent: Calf Tenderness, Pedal Edema - Neurological Exam Neurological Exam: Alert, Awake, Oriented x3 - Psychiatric Exam Psychiatric exam: Normal Affect, Normal Mood - Skin Skin Exam: Dry, Normal Color, Warm Assessment and Plan - Assessment and Plan (Free Text) Plan: 1. Hematuria POD 3 s/p cysto with R ureter stent removal with Dr. Harry Pisano Patient is urinating on his own. States that the hematuria is improving Flomax 0.4mg daily Cipro 500mg PO BID 2. COPD continue advair and albuterol 3. HTN continue metoprolol 25mg BID 4. Atrial Fibrillation continue xarelto continue cardizem continue digoxin 5. Spinal stenosis continue MS contin 15mg ER BID 6. HLD crestor 2.5mg (equivalent to home med simvastatin 10mg) 7. PTSD/ Anxiety/ Depression continue bupropion XL 150mg daily paxil 40mg daily 8. Prophylactic measure xarelto 20mg daily - HELD DUE TO HEMATURIA. Holding all anti-coag on patient at this time. SCDs Fall risk protocol PT eval Head CT w/o (12/15) - showed no intracranial mass, hemorrhage or evidence of acute infarct. Nonspecific trace left mastoid effusion. Chronic microvascular white matter ischemic change. Patient is being discharged today, 12/17/[address] Pisano. Medicine signing off. Case discussed with Dr. Sumit Cuellar PGY1 <Adolfo Arana - Last Filed: 12/18/16 09:57> Objective - Vital Signs/Intake and Output Vital Signs (last 24 hours): Temp Pulse Resp BP Pulse Ox 98.2 F 65 20 122/77 96 12/17/16 15:01 12/17/16 15:01 12/17/16 15:01 12/17/16 15:01 12/17/16 09:21 - Labs Labs: 12/17/16 07:43 12/17/16 07:43 PT 11.8 SECONDS (9.7-12.2) 12/14/16 06:07 INR 1.1 12/14/16 06:07 APTT 31 SECONDS (21-34) 12/14/16 06:07 Attending/Attestation - Attestation I have personally seen and examined this patient.: Yes I have fully participated in the care of the patient.: Yes I have reviewed all pertinent clinical information, including history, physical exam and plan: Yes Notes (Text): 12/18/16 09:56 Patient was seen and examined at bedside with the resident Denies any acute distress. Denies any pain. Still complains of hematuria Continue current medical management Discharge disposition as per the primary team.
== END 2016-12-17 17:15 | disposition home or self-care (01) | DRG 304 ==
LOC: C.ER 08:31 → C.6T 08:31 → C.SDS 09:12 → C.9P 17:58 → C.6T 20:22 → OBSVTOIN 12-15 13:43 → C.6T 12-17 07:58
PROVIDERS: ADMIT Urology; ATTEND Urology
PROC: 0TP98DZ Removal of Intraluminal Device from Ureter, Via Natural or Artificial Opening Endoscopic (ICD-10-PCS; principal; 2016-12-14 17:30)
DX: N13.2 Hydronephrosis with renal and ureteral calculous obstruction (principal); J44.9 Chronic obstructive pulmonary disease, unspecified; D68.9 Coagulation defect, unspecified; R31.0 Gross hematuria; R29.6 Repeated falls; Z86.73 Personal history of transient ischemic attack (TIA), and cerebral infarction without residual deficits; N23 Unspecified renal colic; M48.00 Spinal stenosis, site unspecified; Z87.891 Personal history of nicotine dependence; F43.10 Post-traumatic stress disorder, unspecified; F31.9 Bipolar disorder, unspecified; E78.5 Hyperlipidemia, unspecified; F41.0 Panic disorder [episodic paroxysmal anxiety]; I48.91 Unspecified atrial fibrillation; I25.10 Atherosclerotic heart disease of native coronary artery without angina pectoris; K21.9 Gastro-esophageal reflux disease without esophagitis

== ENCOUNTER 2017-02-21 11:31 | Observation (INO) | payer MEDICAID ==
[2017-02-21 11:32] VITALS: BMI 25.7
--- NOTE | 2017-02-21 12:32 | C.PDOC ---
History Of Present Illness 62 y/o male with PMHx of TIA, Afib, CAD s/p SC presents to ED for evaluation of sudden onset retrosternal chest pain a few hours prior to arrival. Patient states pain radiates to left arm with associated shortness of breath and admits similar symptoms in the past when diagnosed with SC. At ED patient complaints of headache but denies "worse headache of life", diaphoresis, cough, syncope, nausea or any other complaints at this time. Time Seen by Provider: 02/21/17 11:53 Chief Complaint (Nursing): Chest Pain History Per: Patient History/Exam Limitations: no limitations Onset/Duration Of Symptoms: Hrs Current Symptoms Are (Timing): Still Present Quality: "Pain" Associated Symptoms: denies: Nausea, Diaphoresis, Syncope Past Medical History Reviewed: Historical Data, Nursing Documentation, Vital Signs Vital Signs: Last Vital Signs Temp 98.5 F 02/22/17 15:30 Pulse 59 L 02/22/17 16:46 Resp 18 02/22/17 16:46 BP 124/70 02/22/17 18:05 Pulse Ox 98 02/22/17 15:30 - Medical History PMH: Anxiety, Arthritis, Asthma, Atrial Fibrillation, Back Problems, Bipolar Disorder, CAD, Cardia Arrhythmia, COPD, Depression, Hepatitis, HTN, Post Traumatic Stress Disorder (1985 of 2 y/o daughter), TIA (March 2016/ JUN 2016) Surgical History: Appendectomy, Tonsillectomy - [facility] Procedures DILATION OF RIGHT URETER WITH INTRALUMINAL DEVICE, ENDO (11/17/16) DX ULTRASOUND-HEART (05/05/14) FLUOROSCOPY OF KIDNEY, URETER & BLADDER USING OTH CONTRAST (11/17/16) INSERTION OF INFUSION DEV INTO SUP VENA CAVA, PERC APPROACH (07/09/15) PERCUTANEOUS ABDOMINAL DRAINAGE (05/05/14) REMOVAL OF INTRALUMINAL DEVICE FROM URETER, ENDO (12/15/16) ULTRASONOGRAPHY OF RIGHT AND LEFT HEART, TRANSESOPHAGEAL (07/09/15) VENOUS CATHETERIZATION NEC (05/05/14) Family History: States: No Known Family Hx - Social History Hx Tobacco Use: Yes (1ppd from ages [age] ) Hx Alcohol Use: No Hx Substance Use: No - Immunization History Hx Tetanus Toxoid Vaccination: Yes Hx Influenza Vaccination: Yes (2016) Hx Pneumococcal Vaccination: Yes (2014) Review Of Systems Except As Marked, All Systems Reviewed And Found Negative. Cardiovascular: Positive for: Chest Pain Respiratory: Negative for: Cough, Shortness of Breath Gastrointestinal: Negative for: Nausea Neurological: Positive for: Headache Physical Exam - Physical Exam Appears: Non-toxic, No Acute Distress Skin: Warm, Dry, No Rash Head: Normacephalic Oral Mucosa: Moist Chest: Symmetrical Cardiovascular: Rhythm Regular Respiratory: No Accessory Muscle Use, No Rales, No Rhonchi, No Stridor, No Wheezing Gastrointestinal/Abdominal: Soft, No Tenderness, No Guarding, No Rebound Extremity: Normal ROM, No Pedal Edema Neurological/Psych: Oriented x3, Normal Speech, Normal Motor, Normal Sensation ED Course And Treatment - Laboratory Results Result Diagrams: 02/22/17 08:57 02/22/17 04:00 Lab Interpretation: No Acute Changes ECG: Interpreted By Me, Viewed By Me ECG Rhythm: Sinus Rhythm ECG Interpretation: No Changes From Prior Interpretation Of ECG: SR@66/min, NAD, no acute ST-T changes. O2 Sat by Pulse Oximetry: 99 (RA) Pulse Ox Interpretation: Normal - Radiology CXR: Interpreted by Me, Viewed By Me CXR Interpretation: Yes: No Acute Disease - CT Scan/US CT head w/o contrast Other Rad Studies (CT/US): Radiology Report Reviewed CT/US Interpretation: Creator : Julieta Lester MD. Dictator : Julieta Lester MD. Show Host/Hostess : Market Director : Julieta Lester MD. Approver2 : Report Date : 02/21/2017 16:14:55. My Comment : . PROCEDURE: CT HEAD WITHOUT CONTRAST. HISTORY: headache hx of TIA. COMPARISON: Noncontrast head CT performed 12/15/16. TECHNIQUE: Axial computed tomography images were obtained through the head/brain without intravenous contrast. Radiation dose: Total exam DLP = 1449.85 mGy-cm. This CT exam was performed using one or more of the following dose reduction techniques: Automated exposure control, adjustment of the mA and/or kV according to patient size, and/or use of iterative reconstruction technique. FINDINGS: HEMORRHAGE: No intracranial hemorrhage. BRAIN: Diffuse atrophy with prominence of the ventricles and sulci noted. No mass effect or edema. Scattered periventricular and subcortical white matter hypodensities, which are nonspecific, but often seen with chronic microvascular ischemic disease. Please note that MRI with diffusion imaging is more sensitive in the detection of acute ischemic event. VENTRICLES: No hydrocephalus. CALVARIUM: Unremarkable. PARANASAL SINUSES: Unremarkable as visualized. No significant inflammatory changes. MASTOID AIR CELLS: Unremarkable as visualized. No inflammatory changes. OTHER FINDINGS: Partially imaged probable subluxation of the left TMJ. IMPRESSION: Generalized atrophy. Nonspecific white matter changes. Partially imaged probable subluxation of the left TMJ. Progress Note: Case discussed with ED attending and admission recommend at present time. Case discussed with Hospitalist and admission tele OBS recommend. Apparently, pt is well known to from clinic visits, drug- seeking behavioural suspected. On re-eavl, pt remained hemodynamicaly stable. Pt agrees with admission. Disposition - Disposition Disposition: HOSPITALIZED Disposition Time: 14:10 Condition: STABLE - Clinical Impression Clinical Impression: Chest pain - PA / [employer]CH[employer]IC / Resident Statement MD/DO has reviewed & agrees with the documentation as recorded. - Scribe Statement The provider has reviewed the documentation as recorded by the Radha Belcher All medical record entries made by the Radha were at my direction and personally dictated by me. I have reviewed the chart and agree that the record accurately reflects my personal performance of the history, physical exam, medical decision making, and the department course for this patient. I have also personally directed, reviewed, and agree with the discharge instructions and disposition.
[2017-02-21 13:20] LABS: BASO % 0.4 % (0.0-2.0); EOS # 0.1 K/uL (0.0-0.7); EOS % 1.3 % (0.0-4.0); HEMATOCRIT 33.7 % (35.0-51.0); LYMPH # 1.8 K/uL (1.0-4.3); LYMPH % 30.2 % (20.0-40.0); MEAN CELL VOLUME 87.5 fL (80.0-94.0); MEAN CORPUSCULAR HEMOGLOBIN 28.9 pg (27.0-31.0); MEAN PLATELET VOLUME 7.5 fL (7.2-11.7); MONO # 0.7 K/uL (0.0-0.8); MONO % 11.7 % (0.0-10.0); RED CELL DISTRIBUTION WIDTH 13.3 % (11.5-14.5); WHITE BLOOD COUNT 5.9 K/uL (4.8-10.8)
[2017-02-21 13:25] LABS: CHLORIDE 104 mmol/L (98-107)
[2017-02-21 13:26] LABS: POTASSIUM 4.1 mmol/L (3.6-5.2); SODIUM 137 mmol/L (132-148)
[2017-02-21 13:28] LABS: ALKALINE PHOSPHATASE 76 U/L (38-126); ALT/SGPT 54 U/L (21-72); AST/SGOT 33 U/L (17-59); BILIRUBIN,TOTAL 0.6 mg/dL (0.2-1.3); BLOOD UREA NITROGEN 14 mg/dL (9-20); CARBON DIOXIDE 24 mmol/L (22-30); GFR AFRICAN-AMERICAN > 60; TOTAL PROTEIN 8.1 g/dL (6.3-8.3)
[2017-02-21 13:29] LABS: CALCIUM 9.2 mg/dl (8.6-10.4); GLUCOSE,RANDOM 73 mg/dL (75-110)
[2017-02-21 13:30] LABS: INR 1.1
[2017-02-21 15:29] LABS: RBC URINE 1 /hpf (0-3); URINE BILIRUBIN NEGATIVE (NEGATIVE); URINE BLOOD NEGATIVE (NEGATIVE); URINE COLOR Amber (YELLOW); URINE GLUCOSE (UA) NORMAL (Normal); URINE KETONE TRACE mg/dL (NEGATIVE); URINE LEUKOCYTE ESTERASE NEG Leu/uL (Negative); URINE PROTEIN 1+ mg/dL (NEGATIVE); WBC URINE 1 /hpf (0-5)
--- NOTE | 2017-02-21 16:12 | RAD ---
Chest x-ray two views History: Chest pain. Comparison: 12/12/2016 Findings: Biapical pleural thickening with upper lobe granulomatous changes. Few scattered nodular densities in the upper lung echeverria. Diffuse chronic interstitial lung markings. Mild linear atelectasis at the left lung base. Tortuous ectatic aorta. Degenerative changes in the spine. Mild productive change at the mid right clavicle. Impression: Biapical pleural thickening with upper lobe granulomatous changes. Few scattered nodular densities in the upper lung echeverria. Diffuse chronic interstitial lung markings. Mild linear atelectasis at the left lung base. Tortuous ectatic aorta. Correlation with chest CT may be helpful if clinically indicated.
--- NOTE | 2017-02-21 16:16 | CT ---
PROCEDURE: CT HEAD WITHOUT CONTRAST. HISTORY: headache hx of TIA COMPARISON: Noncontrast head CT performed 12/15/16 TECHNIQUE: Axial computed tomography images were obtained through the head/brain without intravenous contrast. Radiation dose: Total exam DLP = 1449.85 mGy-cm. This CT exam was performed using one or more of the following dose reduction techniques: Automated exposure control, adjustment of the mA and/or kV according to patient size, and/or use of iterative reconstruction technique. FINDINGS: HEMORRHAGE: No intracranial hemorrhage. BRAIN: Diffuse atrophy with prominence of the ventricles and sulci noted. No mass effect or edema. Scattered periventricular and subcortical white matter hypodensities, which are nonspecific, but often seen with chronic microvascular ischemic disease. Please note that MRI with diffusion imaging is more sensitive in the detection of acute ischemic event. VENTRICLES: No hydrocephalus. CALVARIUM: Unremarkable. PARANASAL SINUSES: Unremarkable as visualized. No significant inflammatory changes. MASTOID AIR CELLS: Unremarkable as visualized. No inflammatory changes. OTHER FINDINGS: Partially imaged probable subluxation of the left TMJ. IMPRESSION: Generalized atrophy. Nonspecific white matter changes. Partially imaged probable subluxation of the left TMJ.
--- NOTE | 2017-02-21 16:31 | CP.PCM.HP ---
<Bruno Kelly - Last Filed: 02/21/17 19:02> History of Present Illness - History of Present Illness History of Present Illness: 62 year old~male with PMHx of HI, CVA, TIA,~Afib, CAD, kidney stone, appendectomy, hernia repair, L knee replacement, herniated lumbar discs.~ He presents to the ED today complaining of sudden onset severe midsternal chest pain starting a few hours prior to arrival.~ He describes the chest pain as sharp and rates it a 10/10. Patient states the chest pain radiates to the left arm with associated numbness and tingling in his distal left upper ext. Associated symptoms include nausea, intermittent dyspnea, palpitations, and severe left sided headache.~ The headache is described as throbbing, rated 10/10 , with pain behind the left eye with slight vision changes, worse on the left side.~ Patient states the headache is similar to headaches he experienced preceding his previous TIA, CVA, and HI. Patient states he has been compliant with all his medications.~ Patient also complains of urinary frequency at night and increased thirst over the past week.~ Denies fever, sweats, vomiting, diarrhea, constipation, abdominal pain, hematuria, pain with urination. Of note , patient has history of drug seeking behavior. ROS (+) chest pain, nausea, SOB, palpitations, headache, vision changes, urinary frequency, polydypsia (-) fever, sweats, vomiting, diarrhea, constipation, abdominal pain, hematuria, dysuria, muscle weakness PMD: Dr. Garrett Pain Management: Dr. Burroughs (Has not seen yet. Apt on 2016) PMHx: Anxiety, Arthritis, A-fib, Back Pain, BPD, CAD, COPD, HI (September 2016), Depression, Hepatitis, HTN, PTSD, CVA x2 (2015, 2016) PSHx: As per HPI Allergies: NKDA Social Hx: 1 PPD from ages [age], then intermittently since then. Has not smoked for 4 months. Drinks occasionally. Currently unemployed and in process of applying for disability Hos: November for nephrolithiasis Fam Hx: Multiple family members with HI Meds: As per JUN. Present on Admission - Present on Admission Any Indicators Present on Admission: No Review of Systems - Review of Systems All systems: reviewed and no additional remarkable complaints except Review of Systems: As per HPI Past Patient History - Infectious Disease Hx of Infectious Diseases: None - Tetanus Immunizations Tetanus Immunization: Unknown - Past Medical History & Family History Past Medical History?: Yes - Past Social History Smoking Status: Former Smoker - CARDIAC Hx Atrial Fibrillation: Yes Hx Cardia Arrhythmia: Yes Hx Hypertension: Yes - PULMONARY Hx Asthma: Yes Hx Chronic Obstructive Pulmonary Disease (COPD): Yes - NEUROLOGICAL Hx Transient Ischemic Attacks (TIA): Yes (March 2016/JUN 2016) - HEENT Hx HEENT Problems: Yes Hx Cataracts: Yes ("early stages" as per patient) - RENAL Hx Chronic Kidney Disease: No - ENDOCRINE/METABOLIC Hx Endocrine Disorders: No - HEMATOLOGICAL/ONCOLOGICAL Hx Human Immunodeficiency Virus (HIV): No - INTEGUMENTARY Hx Dermatological Problems: Yes Hx Psoriasis: Yes - MUSCULOSKELETAL/RHEUMATOLOGICAL Hx Arthritis: Yes - GASTROINTESTINAL Hx Gastrointestinal Disorders: No - GENITOURINARY/GYNECOLOGICAL Hx Sexually Transmitted Disorders: No - PSYCHIATRIC Hx Anxiety: Yes Hx Bipolar Disorder: Yes Hx Depression: Yes Hx Post Traumatic Stress Disorder: Yes (1985 of 2 y/o daughter) Hx Substance Use: No - SURGICAL HISTORY Hx Appendectomy: Yes Hx Tonsillectomy: Yes - ANESTHESIA Hx Anesthesia: Yes Hx Anesthesia Reactions: No Hx Malignant Hyperthermia: No Meds Allergies/Adverse Reactions: Allergies Allergy/AdvReac Type Severity Reaction Status Date / Time No Known Allergies Allergy Verified 12/13/16 08:37 Physical Exam - Constitutional Appears: Well, Non-toxic, No Acute Distress - Head Exam Head Exam: ATRAUMATIC, NORMAL INSPECTION, NORMOCEPHALIC - Eye Exam Eye Exam: EOMI, Normal appearance, PERRL - ENT Exam ENT Exam: Mucous Membranes Moist - Neck Exam Neck exam: Negative for: Lymphadenopathy, Thyromegaly - Respiratory Exam Respiratory Exam: Clear to Auscultation Bilateral. absent: Rales, Rhonchi, Wheezes - Cardiovascular Exam Cardiovascular Exam: RRR, +S1, +S2 - GI/Abdominal Exam GI & Abdominal Exam: Soft. absent: Tenderness - Extremities Exam Extremities exam: Positive for: normal capillary refill. Negative for: pedal edema Additional comments: 5/5 muscles strength in upper and lower ext. b/l - Neurological Exam Neurological exam: Alert, CN II-XII Intact, Oriented x3 Results - Vital Signs Recent Vital Signs: Last Vital Signs Temp 98.6 F 02/21/17 12:05 Pulse 62 02/21/17 12:05 Resp 18 02/21/17 12:05 BP 125/76 02/21/17 12:05 Pulse Ox 99 02/21/17 15:48 - Labs Result Diagrams: 02/21/17 13:04 02/21/17 13:04 Labs: Laboratory Results - last 24 hr 02/21/17 02/21/17 02/21/17 13:04 13:04 13:04 WBC 5.9 RBC 3.85 L Hgb 11.1 L Hct 33.7 L MCV 87.5 D MCH 28.9 MCHC 33.0 RDW 13.3 Plt Count 194 MPV 7.5 Neut % (Auto) 56.4 Lymph % (Auto) 30.2 Dixon % (Auto) 11.7 H Eos % (Auto) 1.3 Baso % (Auto) 0.4 Neut # 3.3 Lymph # 1.8 Dixon # 0.7 Eos # 0.1 Baso # 0.0 PT 12.5 H INR 1.1 APTT 30 Sodium 137 Potassium 4.1 Chloride 104 Carbon Dioxide 24 Anion Gap 13 BUN 14 Creatinine 0.7 L Est GFR ( Amer) > 60 Est GFR (Non-Af Amer) > 60 Random Glucose 73 L Calcium 9.2 Total Bilirubin 0.6 AST 33 ALT 54 Alkaline Phosphatase 76 Troponin I < 0.0120 NT-Pro-B Natriuret Pep 255 Total Protein 8.1 Albumin 4.0 Globulin 4.1 H Albumin/Globulin Ratio 1.0 Lipase 31 Urine Color Urine Clarity Urine pH Ur Specific [place] Urine Protein Urine Glucose (UA) Urine Ketones Urine Blood Urine Nitrate Urine Bilirubin Urine Urobilinogen Ur Leukocyte Esterase Urine WBC (Auto) Urine RBC (Auto) 02/21/17 15:19 WBC RBC Hgb Hct MCV MCH MCHC RDW Plt Count MPV Neut % (Auto) Lymph % (Auto) Dixon % (Auto) Eos % (Auto) Baso % (Auto) Neut # Lymph # Dixon # Eos # Baso # PT INR APTT Sodium Potassium Chloride Carbon Dioxide Anion Gap BUN Creatinine Est GFR ( Amer) Est GFR (Non-Af Amer) Random Glucose Calcium Total Bilirubin AST ALT Alkaline Phosphatase Troponin I NT-Pro-B Natriuret Pep Total Protein Albumin Globulin Albumin/Globulin Ratio Lipase Urine Color Trish Urine Clarity Clear Urine pH 5.0 Ur Specific [place] 1.029 Urine Protein 1+ H Urine Glucose (UA) Normal Urine Ketones Trace Urine Blood Negative Urine Nitrate Negative Urine Bilirubin Negative Urine Urobilinogen 2.0 Ur Leukocyte Esterase Neg Urine WBC (Auto) 1 Urine RBC (Auto) 1 Assessment & Plan - Assessment and Plan (Free Text) Assessment: 62 year old male with PMHx significant for A-fib, CVAx2, and HI admitted to observation for evaluation and treatment of chest pain, r/o ACS. Plan: 1. Chest Pain R/O ACS -First Trop negative, CXR shows NAD, EKG is NSR with no acute ST-T changes -Trend Trops -Admit to telemetry -Cardio Consult (Dr. Sky Lemos) -Trend EKG -Home pain meds held. Morphine 2 Q4 PRN for severe pain. -CBC/CMP/Mg/Phos in the AM 2. Polyuria and Polydipsia -HbA1C 3. Headache -CT Head impression read Generalized atrophy, nonspecific white matter changes , Partially imaged probably subluxation of the left TMJ -Repeat Imaging in AM -Consider dentistry consult. -PRN Ibuprofen. Dispo: Will restart all home medications except for pain medications. Will admit for observation and DC tomorrow pending negative EKG's and Troponins. Last Echo(October 2016)showed normal LV function. Patient seen, discussed, and reviewed with Attending Bruno Klely - PGY1 <Newton Moe - Last Filed: 02/22/17 07:54> Results - Vital Signs Recent Vital Signs: Last Vital Signs Temp 98.6 F 02/22/17 06:41 Pulse 62 02/22/17 06:41 Resp 18 02/22/17 06:41 BP 121/76 02/22/17 06:41 Pulse Ox 96 02/22/17 06:41 - Labs Result Diagrams: 02/21/17 13:04 02/22/17 04:00 Labs: Laboratory Results - last 24 hr 02/21/17 02/21/17 02/21/17 13:04 13:04 13:04 WBC 5.9 RBC 3.85 L Hgb 11.1 L Hct 33.7 L MCV 87.5 D MCH 28.9 MCHC 33.0 RDW 13.3 Plt Count 194 MPV 7.5 Neut % (Auto) 56.4 Lymph % (Auto) 30.2 Dixon % (Auto) 11.7 H Eos % (Auto) 1.3 Baso % (Auto) 0.4 Neut # 3.3 Lymph # 1.8 Dixon # 0.7 Eos # 0.1 Baso # 0.0 PT 12.5 H INR 1.1 APTT 30 Sodium 137 Potassium 4.1 Chloride 104 Carbon Dioxide 24 Anion Gap 13 BUN 14 Creatinine 0.7 L Est GFR ( Amer) > 60 Est GFR (Non-Af Amer) > 60 Random Glucose 73 L Hemoglobin A1c Calcium 9.2 Phosphorus Magnesium Total Bilirubin 0.6 AST 33 ALT 54 Alkaline Phosphatase 76 Total Creatine Kinase CK-MB (Mass) Troponin I < 0.0120 Troponin I, Quant NT-Pro-B Natriuret Pep 255 Total Protein 8.1 Albumin 4.0 Globulin 4.1 H Albumin/Globulin Ratio 1.0 Lipase 31 Urine Color Urine Clarity Urine pH Ur Specific [place] Urine Protein Urine Glucose (UA) Urine Ketones Urine Blood Urine Nitrate Urine Bilirubin Urine Urobilinogen Ur Leukocyte Esterase Urine WBC (Auto) Urine RBC (Auto) Urine Opiates Screen Urine Methadone Screen Ur Barbiturates Screen Ur Phencyclidine Scrn Ur Amphetamines Screen U Benzodiazepines Scrn U Oth Cocaine Metabols U Cannabinoids Screen 02/21/17 02/21/17 02/21/17 15:19 21:08 21:16 WBC RBC Hgb Hct MCV MCH MCHC RDW Plt Count MPV Neut % (Auto) Lymph % (Auto) Dixon % (Auto) Eos % (Auto) Baso % (Auto) Neut # Lymph # Dixon # Eos # Baso # PT INR APTT Sodium Potassium Chloride Carbon Dioxide Anion Gap BUN Creatinine Est GFR ( Amer) Est GFR (Non-Af Amer) Random Glucose Hemoglobin A1c 5.8 Calcium Phosphorus Magnesium Total Bilirubin AST ALT Alkaline Phosphatase Total Creatine Kinase 44 L CK-MB (Mass) 0.33 Troponin I Troponin I, Quant < 0.0120 NT-Pro-B Natriuret Pep Total Protein Albumin Globulin Albumin/Globulin Ratio Lipase Urine Color Trish Urine Clarity Clear Urine pH 5.0 Ur Specific [place] 1.029 Urine Protein 1+ H Urine Glucose (UA) Normal Urine Ketones Trace Urine Blood Negative Urine Nitrate Negative Urine Bilirubin Negative Urine Urobilinogen 2.0 Ur Leukocyte Esterase Neg Urine WBC (Auto) 1 Urine RBC (Auto) 1 Urine Opiates Screen Urine Methadone Screen Ur Barbiturates Screen Ur Phencyclidine Scrn Ur Amphetamines Screen U Benzodiazepines Scrn U Oth Cocaine Metabols U Cannabinoids Screen 02/21/17 02/22/17 02/22/17 21:43 00:26 04:00 WBC RBC Hgb Hct MCV MCH MCHC RDW Plt Count MPV Neut % (Auto) Lymph % (Auto) Dixon % (Auto) Eos % (Auto) Baso % (Auto) Neut # Lymph # Dixon # Eos # Baso # PT INR APTT Sodium 137 Potassium 3.9 Chloride 104 Carbon Dioxide 25 Anion Gap 12 BUN 15 Creatinine 0.8 Est GFR ( Amer) > 60 Est GFR (Non-Af Amer) > 60 Random Glucose 90 Hemoglobin A1c Calcium 9.3 Phosphorus 3.4 Magnesium 2.0 Total Bilirubin 0.6 AST 33 ALT 54 Alkaline Phosphatase 82 Total Creatine Kinase 41 L CK-MB (Mass) 0.37 Troponin I Troponin I, Quant < 0.0120 NT-Pro-B Natriuret Pep Total Protein 7.7 Albumin 3.8 Globulin 3.9 Albumin/Globulin Ratio 1.0 Lipase Urine Color Urine Clarity Urine pH Ur Specific [place] Urine Protein Urine Glucose (UA) Urine Ketones Urine Blood Urine Nitrate Urine Bilirubin Urine Urobilinogen Ur Leukocyte Esterase Urine WBC (Auto) Urine RBC (Auto) Urine Opiates Screen Positive Urine Methadone Screen Negative Ur Barbiturates Screen Negative Ur Phencyclidine Scrn Negative Ur Amphetamines Screen Negative U Benzodiazepines Scrn Negative U Oth Cocaine Metabols Negative U Cannabinoids Screen Negative Attending/Attestation - Attestation I have personally seen and examined this patient.: Yes I have fully participated in the care of the patient.: Yes I have reviewed all pertinent clinical information: Yes Notes (Text): This is a 62 years old male with PMHx of HI, CVA, TIA,Afib not on anticoagulation, CAD, kidney stone, appendectomy, hernia repair, L knee replacement and herniated lumbar discs presents to the ED today complaining of sudden onset severe mid sternal chest pain starting a few hours prior to arrival. Patient was seen and examined in the ER.He was lying comfortable without pain.He follows [facility].As per patient anticoagulation was discontinued due to hematuria Case discussed with resident in detail.I agree the documentation ,assessment and plan 1.Chest pain 2.History of CVA,TIA 3.History of Afib 4.h/o HI 5.Kidney stone
[2017-02-21] MEDS ORDERED: Albuterol-Ipratrop 3 mg / 0.5 (3 ml) UD ONE (21:55)
[2017-02-21] MEDS: Albuterol-Ipratrop 3 mg / 0.5 (3 ml) UD INH SCH (22:08)
[2017-02-22] MEDS: Albuterol-Ipratrop 3 mg / 0.5 (3 ml) UD INH SCH ×4 (02:00→13:01)
[2017-02-22] MEDS ORDERED: Albuterol-Ipratrop 3 mg / 0.5 (3 ml) UD ONE ×3 (04:32→12:46)
[2017-02-22 04:53] LABS: HEMATOCRIT 33.8 % (35.0-51.0); MEAN CELL VOLUME 87.7 fL (80.0-94.0); MEAN CORPUSCULAR HEMOGLOBIN 29.2 pg (27.0-31.0); MEAN CORPUSCULAR HGB CONC 33.3 g/dL (33.0-37.0); MEAN PLATELET VOLUME 7.5 fL (7.2-11.7); RED CELL DISTRIBUTION WIDTH 13.4 % (11.5-14.5); WHITE BLOOD COUNT 4.9 K/uL (4.8-10.8)
[2017-02-22 04:57] LABS: CHLORIDE 104 mmol/L (98-107); SODIUM 137 mmol/L (132-148)
[2017-02-22 04:58] LABS: POTASSIUM 3.9 mmol/L (3.6-5.2)
[2017-02-22 04:59] LABS: GFR AFRICAN-AMERICAN > 60
[2017-02-22 05:00] LABS: ALKALINE PHOSPHATASE 82 U/L (38-126); ALT/SGPT 54 U/L (21-72); AST/SGOT 33 U/L (17-59); BILIRUBIN,TOTAL 0.6 mg/dL (0.2-1.3); BLOOD UREA NITROGEN 15 mg/dL (9-20); CALCIUM 9.3 mg/dl (8.6-10.4); CARBON DIOXIDE 25 mmol/L (22-30); GLUCOSE,RANDOM 90 mg/dL (75-110); PHOSPHOROUS 3.4 mg/dL (2.5-4.5); TOTAL PROTEIN 7.7 g/dL (6.3-8.3)
[2017-02-22] MEDS ORDERED: buPROPion 150 mg/24 Hours XL Tab PO SCH (10:00)
[2017-02-22] MEDS ORDERED: Pantoprazole 40 mg EC Tab PO SCH (10:00)
[2017-02-22] MEDS ORDERED: Fluticasone-Salmeterol 250-50mcg Diskus IH SCH ×2 (10:00→20:00)
[2017-02-22] MEDS ORDERED: Digoxin 125 mcg (0.125 mg) Tab PO SCH ×2 (10:00→18:00)
--- NOTE | 2017-02-22 10:38 | CP.PCM.PN ---
Subjective - Date & Time of Evaluation Date of Evaluation: 02/22/17 Time of Evaluation: 10:35 - Subjective Subjective: Medicine note for Dr. Bowen Patient seen and examined at bedside. Patient resting comfortably in bed. He complains of some nausea this morning before breakfast. He says he was able to eat some of his breakfast and did not vomit. He also complains of headache and light headedness this morning. He is still having nonradiating, sharp left sided chest pain and mild SOB. He denies abdominal pain, diarrhea, constipation , vomiting, fever, chills, cough, leg pain, and leg swelling. Objective - Vital Signs/Intake and Output Vital Signs (last 24 hours): Temp Pulse Resp BP Pulse Ox 98.6 F 62 18 121/76 96 02/22/17 06:41 02/22/17 06:41 02/22/17 06:41 02/22/17 06:41 02/22/17 06:41 - Medications Medications: Current Medications Albuterol/Ipratropium (Duoneb 3 Mg/0.5 Mg (3 Ml) Ud) 3 ml INH RQ6 [facility] Last Admin: 02/22/17 08:37 Dose: 3 ml Alprazolam (Xanax) 0.5 mg PO HS [facility] Last Admin: 02/21/17 22:45 Dose: 0.5 mg Aspirin (Aspirin Chewable) 81 mg PO DAILY [facility] Bupropion HCl (Wellbutrin Xl) 150 mg PO DAILY [facility] Digoxin (Lanoxin) 0.125 mg PO DAILY [facility] Diltiazem HCl (Cardizem) 30 mg PO QID [facility] Last Admin: 02/22/17 00:44 Dose: Not Given Heparin Sodium (Porcine) (Heparin) 5,000 units SC Q8 [facility] Last Admin: 02/22/17 06:41 Dose: 5,000 units Ibuprofen (Motrin Tab) 600 mg PO TID PRN PRN Reason: Pain, moderate (4-7) Last Admin: 02/21/17 21:54 Dose: 600 mg Metoprolol Tartrate (Lopressor) 25 mg PO BID [facility] Last Admin: 02/21/17 19:01 Dose: 25 mg Morphine Sulfate (Morphine) 2 mg IVP Q4 PRN PRN Reason: Pain, severe (8-10) Last Admin: 02/22/17 08:56 Dose: 2 mg Pantoprazole Sodium (Protonix Ec Tab) 40 mg PO DAILY [facility] Rosuvastatin Calcium (Crestor) 10 mg PO HS [facility] Last Admin: 02/21/17 21:53 Dose: 10 mg Fluticasone/Salmeterol (Advair Diskus 250/50) 1 puff IH RQD [facility] - Labs Labs: 02/22/17 08:57 02/22/17 04:00 PT 12.5 SECONDS (9.7-12.2) H 02/21/17 13:04 INR 1.1 02/21/17 13:04 APTT 30 SECONDS (21-34) 02/21/17 13:04 - Constitutional Appears: Non-toxic, No Acute Distress - Head Exam Head Exam: NORMAL INSPECTION - Eye Exam Eye Exam: EOMI - ENT Exam ENT Exam: Mucous Membranes Moist - Respiratory Exam Respiratory Exam: Clear to Ausculation Bilateral, NORMAL BREATHING PATTERN - Cardiovascular Exam Cardiovascular Exam: REGULAR RHYTHM, +S1, +S2. absent: Bradycardia, Murmur - GI/Abdominal Exam GI & Abdominal Exam: Soft, Normal Bowel Sounds. absent: Distended, Tenderness - Extremities Exam Extremities Exam: absent: Calf Tenderness, Pedal Edema - Neurological Exam Neurological Exam: Alert, Awake - Psychiatric Exam Psychiatric exam: Normal Affect, Normal Mood - Skin Skin Exam: Dry, Intact, Warm Assessment and Plan - Assessment and Plan (Free Text) Plan: Chest Pain R/O ACS * ОЛЕГ neg x3 * CXR unremarkable * EKG is NSR with no acute ST-T changes * Cardio Consult (Dr. Sky Lemos) * Home pain meds held. Morphine 2 Q4 PRN for severe pain. * Last Echo(October 2016)showed normal LV function. Polyuria and Polydipsia * HbA1C: 5.8 Headache * CT Head: Generalized atrophy, nonspecific white matter changes, Partially imaged probably subluxation of the left TMJ * f/u repeat CT head * Consider dentistry consult * PRN Ibuprofen. DISPOSITION: will discharge patient pending Cardiology recs - patient has been here multiple times with the same complaint with negative work up, likely drug seeking. Patient seen, discussed, and reviewed with Dr. Abhi Raines, PGY1
--- NOTE | 2017-02-22 11:53 | CP.PCM.CON ---
History of Present Illness - History of Present Illness History of Present Illness: Chart reviewed 62 year old male admitted with severe chest pain radiating to the left arm associated with nausea shortness of breath palpitations and headache Past medical significant for systemic hypertension coronary artery disease atrial fibrillation "transient ischemic attack, cerberovascular accident" Past surgery: Hernia Knee replacement Lumbar spinal disease Past Patient History - Infectious Disease Hx of Infectious Diseases: None - Tetanus Immunizations Tetanus Immunization: Unknown - Past Medical History & Family History Past Medical History?: Yes - Past Social History Smoking Status: Former Smoker - CARDIAC Hx Atrial Fibrillation: Yes Hx Cardia Arrhythmia: Yes Hx Hypertension: Yes - PULMONARY Hx Asthma: Yes Hx Chronic Obstructive Pulmonary Disease (COPD): Yes - NEUROLOGICAL Hx Transient Ischemic Attacks (TIA): Yes (March 2016/JUN 2016) - HEENT Hx HEENT Problems: Yes Hx Cataracts: Yes ("early stages" as per patient) - RENAL Hx Chronic Kidney Disease: No - ENDOCRINE/METABOLIC Hx Endocrine Disorders: No - HEMATOLOGICAL/ONCOLOGICAL Hx Human Immunodeficiency Virus (HIV): No - INTEGUMENTARY Hx Dermatological Problems: Yes Hx Psoriasis: Yes - MUSCULOSKELETAL/RHEUMATOLOGICAL Hx Arthritis: Yes - GASTROINTESTINAL Hx Gastrointestinal Disorders: No - GENITOURINARY/GYNECOLOGICAL Hx Sexually Transmitted Disorders: No - PSYCHIATRIC Hx Anxiety: Yes Hx Bipolar Disorder: Yes Hx Depression: Yes Hx Post Traumatic Stress Disorder: Yes (1985 of 2 y/o daughter) Hx Substance Use: No - SURGICAL HISTORY Hx Appendectomy: Yes Hx Tonsillectomy: Yes - ANESTHESIA Hx Anesthesia: Yes Hx Anesthesia Reactions: No Hx Malignant Hyperthermia: No Meds Allergies/Adverse Reactions: Allergies Allergy/AdvReac Type Severity Reaction Status Date / Time No Known Allergies Allergy Verified 12/13/16 08:37 - Medications Medications: Current Medications Albuterol/Ipratropium (Duoneb 3 Mg/0.5 Mg (3 Ml) Ud) 3 ml INH RQ6 [facility] Last Admin: 02/22/17 08:37 Dose: 3 ml Alprazolam (Xanax) 0.5 mg PO HS [facility] Last Admin: 02/21/17 22:45 Dose: 0.5 mg Aspirin (Aspirin Chewable) 81 mg PO DAILY [facility] Bupropion HCl (Wellbutrin Xl) 150 mg PO DAILY [facility] Digoxin (Lanoxin) 0.125 mg PO DAILY [facility] Diltiazem HCl (Cardizem) 30 mg PO QID [facility] Last Admin: 02/22/17 00:44 Dose: Not Given Heparin Sodium (Porcine) (Heparin) 5,000 units SC Q8 [facility] Last Admin: 02/22/17 06:41 Dose: 5,000 units Ibuprofen (Motrin Tab) 600 mg PO TID PRN PRN Reason: Pain, moderate (4-7) Last Admin: 02/21/17 21:54 Dose: 600 mg Metoprolol Tartrate (Lopressor) 25 mg PO BID [facility] Last Admin: 02/21/17 19:01 Dose: 25 mg Morphine Sulfate (Morphine) 2 mg IVP Q4 PRN PRN Reason: Pain, severe (8-10) Last Admin: 02/22/17 08:56 Dose: 2 mg Pantoprazole Sodium (Protonix Ec Tab) 40 mg PO DAILY [facility] Rosuvastatin Calcium (Crestor) 10 mg PO HS [facility] Last Admin: 02/21/17 21:53 Dose: 10 mg Fluticasone/Salmeterol (Advair Diskus 250/50) 1 puff IH RQD [facility] Results - Vital Signs Recent Vital Signs: Last Vital Signs Temp 98.6 F 02/22/17 06:41 Pulse 62 02/22/17 06:41 Resp 18 02/22/17 06:41 BP 121/76 02/22/17 06:41 Pulse Ox 96 02/22/17 06:41 - Labs Result Diagrams: 02/22/17 08:57 02/22/17 04:00 Labs: Laboratory Results - last 24 hr 02/21/17 02/21/17 02/21/17 13:04 13:04 13:04 WBC 5.9 RBC 3.85 L Hgb 11.1 L Hct 33.7 L MCV 87.5 D MCH 28.9 MCHC 33.0 RDW 13.3 Plt Count 194 MPV 7.5 Neut % (Auto) 56.4 Lymph % (Auto) 30.2 Baldwin % (Auto) 11.7 H Eos % (Auto) 1.3 Baso % (Auto) 0.4 Neut # 3.3 Lymph # 1.8 Baldwin # 0.7 Eos # 0.1 Baso # 0.0 PT 12.5 H INR 1.1 APTT 30 Sodium 137 Potassium 4.1 Chloride 104 Carbon Dioxide 24 Anion Gap 13 BUN 14 Creatinine 0.7 L Est GFR ( Amer) > 60 Est GFR (Non-Af Amer) > 60 Random Glucose 73 L Hemoglobin A1c Calcium 9.2 Phosphorus Magnesium Total Bilirubin 0.6 AST 33 ALT 54 Alkaline Phosphatase 76 Total Creatine Kinase CK-MB (Mass) Troponin I < 0.0120 Troponin I, Quant NT-Pro-B Natriuret Pep 255 Total Protein 8.1 Albumin 4.0 Globulin 4.1 H Albumin/Globulin Ratio 1.0 Lipase 31 Urine Color Urine Clarity Urine pH Ur Specific [place] Urine Protein Urine Glucose (UA) Urine Ketones Urine Blood Urine Nitrate Urine Bilirubin Urine Urobilinogen Ur Leukocyte Esterase Urine WBC (Auto) Urine RBC (Auto) Urine Opiates Screen Urine Methadone Screen Ur Barbiturates Screen Ur Phencyclidine Scrn Ur Amphetamines Screen U Benzodiazepines Scrn U Oth Cocaine Metabols U Cannabinoids Screen 02/21/17 02/21/17 02/21/17 15:19 21:08 21:16 WBC RBC Hgb Hct MCV MCH MCHC RDW Plt Count MPV Neut % (Auto) Lymph % (Auto) Baldwin % (Auto) Eos % (Auto) Baso % (Auto) Neut # Lymph # Baldwin # Eos # Baso # PT INR APTT Sodium Potassium Chloride Carbon Dioxide Anion Gap BUN Creatinine Est GFR ( Amer) Est GFR (Non-Af Amer) Random Glucose Hemoglobin A1c 5.8 Calcium Phosphorus Magnesium Total Bilirubin AST ALT Alkaline Phosphatase Total Creatine Kinase 44 L CK-MB (Mass) 0.33 Troponin I Troponin I, Quant < 0.0120 NT-Pro-B Natriuret Pep Total Protein Albumin Globulin Albumin/Globulin Ratio Lipase Urine Color Trish Urine Clarity Clear Urine pH 5.0 Ur Specific [place] 1.029 Urine Protein 1+ H Urine Glucose (UA) Normal Urine Ketones Trace Urine Blood Negative Urine Nitrate Negative Urine Bilirubin Negative Urine Urobilinogen 2.0 Ur Leukocyte Esterase Neg Urine WBC (Auto) 1 Urine RBC (Auto) 1 Urine Opiates Screen Urine Methadone Screen Ur Barbiturates Screen Ur Phencyclidine Scrn Ur Amphetamines Screen U Benzodiazepines Scrn U Oth Cocaine Metabols U Cannabinoids Screen 02/21/17 02/22/17 02/22/17 21:43 00:26 04:00 WBC RBC Hgb Hct MCV MCH MCHC RDW Plt Count MPV Neut % (Auto) Lymph % (Auto) Baldwin % (Auto) Eos % (Auto) Baso % (Auto) Neut # Lymph # Baldwin # Eos # Baso # PT INR APTT Sodium 137 Potassium 3.9 Chloride 104 Carbon Dioxide 25 Anion Gap 12 BUN 15 Creatinine 0.8 Est GFR ( Amer) > 60 Est GFR (Non-Af Amer) > 60 Random Glucose 90 Hemoglobin A1c Calcium 9.3 Phosphorus 3.4 Magnesium 2.0 Total Bilirubin 0.6 AST 33 ALT 54 Alkaline Phosphatase 82 Total Creatine Kinase 41 L CK-MB (Mass) 0.37 Troponin I Troponin I, Quant < 0.0120 NT-Pro-B Natriuret Pep Total Protein 7.7 Albumin 3.8 Globulin 3.9 Albumin/Globulin Ratio 1.0 Lipase Urine Color Urine Clarity Urine pH Ur Specific [place] Urine Protein Urine Glucose (UA) Urine Ketones Urine Blood Urine Nitrate Urine Bilirubin Urine Urobilinogen Ur Leukocyte Esterase Urine WBC (Auto) Urine RBC (Auto) Urine Opiates Screen Positive Urine Methadone Screen Negative Ur Barbiturates Screen Negative Ur Phencyclidine Scrn Negative Ur Amphetamines Screen Negative U Benzodiazepines Scrn Negative U Oth Cocaine Metabols Negative U Cannabinoids Screen Negative 02/22/17 08:57 WBC 4.9 RBC 3.85 L Hgb 11.2 L Hct 33.8 L MCV 87.7 MCH 29.2 MCHC 33.3 RDW 13.4 Plt Count 160 MPV 7.5 Neut % (Auto) Lymph % (Auto) Baldwin % (Auto) Eos % (Auto) Baso % (Auto) Neut # Lymph # Baldwin # Eos # Baso # PT INR APTT Sodium Potassium Chloride Carbon Dioxide Anion Gap BUN Creatinine Est GFR ( Amer) Est GFR (Non-Af Amer) Random Glucose Hemoglobin A1c Calcium Phosphorus Magnesium Total Bilirubin AST ALT Alkaline Phosphatase Total Creatine Kinase CK-MB (Mass) Troponin I Troponin I, Quant NT-Pro-B Natriuret Pep Total Protein Albumin Globulin Albumin/Globulin Ratio Lipase Urine Color Urine Clarity Urine pH Ur Specific [place] Urine Protein Urine Glucose (UA) Urine Ketones Urine Blood Urine Nitrate Urine Bilirubin Urine Urobilinogen Ur Leukocyte Esterase Urine WBC (Auto) Urine RBC (Auto) Urine Opiates Screen Urine Methadone Screen Ur Barbiturates Screen Ur Phencyclidine Scrn Ur Amphetamines Screen U Benzodiazepines Scrn U Oth Cocaine Metabols U Cannabinoids Screen Assessment & Plan - Assessment and Plan (Free Text) Assessment: Labs and imaging reviewed 62 year old male admitted with severe chest pain radiating to the left arm associated with nausea shortness of breath palpitations and headache Past medical significant for systemic hypertension coronary artery disease atrial fibrillation "transient ischemic attack, cerberovascular accident"; EKG was unavailable; labs were significant for normal troponins and BNP Symptom intensity is a concern although the mechanism remains to be defined; would assume coronary disease and consider PE and dissection Suggest Echocardiogram Review prior records Asa/plavix D-dimer Plan: See above
[2017-02-22 16:52] VITALS: TEMP 98.5
--- NOTE | 2017-02-22 17:04 | CP.PCM.DIS ---
Provider - Provider Date of Admission: 02/21/17 15:08 Attending physician: Newton Moe MD Primary care physician: Dr. Garrett Consults: Dr. Lemos Time Spent in preparation of Discharge (in minutes): 35 Diagnosis - Discharge Diagnosis (1) Chest pain Status: Acute Hospital Course - Lab Results Lab Results: Most Recent Lab Values WBC 4.9 K/uL (4.8-10.8) 02/22/17 08:57 RBC 3.85 Mil/uL (4.40-5.90) L 02/22/17 08:57 Hgb 11.2 g/dL (12.0-18.0) L 02/22/17 08:57 Hct 33.8 % (35.0-51.0) L 02/22/17 08:57 MCV 87.7 fL (80.0-94.0) 02/22/17 08:57 MCH 29.2 pg (27.0-31.0) 02/22/17 08:57 MCHC 33.3 g/dL (33.0-37.0) 02/22/17 08:57 RDW 13.4 % (11.5-14.5) 02/22/17 08:57 Plt Count 160 K/uL (130-400) 02/22/17 08:57 MPV 7.5 fL (7.2-11.7) 02/22/17 08:57 Neut % (Auto) 56.4 % (50.0-75.0) 02/21/17 13:04 Lymph % (Auto) 30.2 % (20.0-40.0) 02/21/17 13:04 Burke % (Auto) 11.7 % (0.0-10.0) H 02/21/17 13:04 Eos % (Auto) 1.3 % (0.0-4.0) 02/21/17 13:04 Baso % (Auto) 0.4 % (0.0-2.0) 02/21/17 13:04 Neut # 3.3 K/uL (1.8-7.0) 02/21/17 13:04 Lymph # 1.8 K/uL (1.0-4.3) 02/21/17 13:04 Burke # 0.7 K/uL (0.0-0.8) 02/21/17 13:04 Eos # 0.1 K/uL (0.0-0.7) 02/21/17 13:04 Baso # 0.0 K/uL (0.0-0.2) 02/21/17 13:04 PT 12.5 SECONDS (9.7-12.2) H 02/21/17 13:04 INR 1.1 02/21/17 13:04 APTT 30 SECONDS (21-34) 02/21/17 13:04 Sodium 137 mmol/L (132-148) 02/22/17 04:00 Potassium 3.9 mmol/L (3.6-5.2) 02/22/17 04:00 Chloride 104 mmol/L (98-107) 02/22/17 04:00 Carbon Dioxide 25 mmol/L (22-30) 02/22/17 04:00 Anion Gap 12 (10-20) 02/22/17 04:00 BUN 15 mg/dL (9-20) 02/22/17 04:00 Creatinine 0.8 mg/dL (0.8-1.5) 02/22/17 04:00 Est GFR ( Amer) > 60 02/22/17 04:00 Est GFR (Non-Af Amer) > 60 02/22/17 04:00 Random Glucose 90 mg/dL (75-110) 02/22/17 04:00 Hemoglobin A1c 5.8 % (4.2-6.5) 02/21/17 21:08 Calcium 9.3 mg/dl (8.6-10.4) 02/22/17 04:00 Phosphorus 3.4 mg/dL (2.5-4.5) 02/22/17 04:00 Magnesium 2.0 mg/dL (1.6-2.3) 02/22/17 04:00 Total Bilirubin 0.6 mg/dL (0.2-1.3) 02/22/17 04:00 AST 33 U/L (17-59) 02/22/17 04:00 ALT 54 U/L (21-72) 02/22/17 04:00 Alkaline Phosphatase 82 U/L (38-126) 02/22/17 04:00 Total Creatine Kinase 41 U/L (55-170) L 02/22/17 00:26 CK-MB (Mass) 0.37 ng/mL (0.0-3.38) 02/22/17 00:26 Troponin I < 0.0120 ng/mL (0.00-0.120) 02/21/17 13:04 Troponin I, Quant < 0.0120 ng/mL (0.00-0.120) 02/22/17 00:26 NT-Pro-B Natriuret Pep 255 pg/mL (0-900) 02/21/17 13:04 Total Protein 7.7 g/dL (6.3-8.3) 02/22/17 04:00 Albumin 3.8 g/dL (3.5-5.0) 02/22/17 04:00 Globulin 3.9 gm/dL (2.2-3.9) 02/22/17 04:00 Albumin/Globulin Ratio 1.0 (1.0-2.1) 02/22/17 04:00 Lipase 31 U/L (23-300) 02/21/17 13:04 Urine Color Trish (YELLOW) 02/21/17 15:19 Urine Clarity Clear (Clear) 02/21/17 15:19 Urine pH 5.0 (5.0-8.0) 02/21/17 15:19 Ur Specific [place] 1.029 (1.003-1.030) 02/21/17 15:19 Urine Protein 1+ mg/dL (NEGATIVE) H 02/21/17 15:19 Urine Glucose (UA) Normal mg/dL (Normal) 02/21/17 15:19 Urine Ketones Trace mg/dL (NEGATIVE) 02/21/17 15:19 Urine Blood Negative (NEGATIVE) 02/21/17 15:19 Urine Nitrate Negative (NEGATIVE) 02/21/17 15:19 Urine Bilirubin Negative (NEGATIVE) 02/21/17 15:19 Urine Urobilinogen 2.0 mg/dL (0.2-1.0) 02/21/17 15:19 Ur Leukocyte Esterase Neg Jeanie/uL (Negative) 02/21/17 15:19 Urine WBC (Auto) 1 /hpf (0-5) 02/21/17 15:19 Urine RBC (Auto) 1 /hpf (0-3) 02/21/17 15:19 Urine Opiates Screen Positive (NEGATIVE) 02/21/17 21:43 Urine Methadone Screen Negative (NEGATIVE) 02/21/17 21:43 Ur Barbiturates Screen Negative (NEGATIVE) 02/21/17 21:43 Ur Phencyclidine Scrn Negative (NEGATIVE) 02/21/17 21:43 Ur Amphetamines Screen Negative (NEGATIVE) 02/21/17 21:43 U Benzodiazepines Scrn Negative (NEGATIVE) 02/21/17 21:43 U Oth Cocaine Metabols Negative (NEGATIVE) 02/21/17 21:43 U Cannabinoids Screen Negative (NEGATIVE) 02/21/17 21:43 - Hospital Course Hospital Course: Upon admission: 62 year old~male with PMHx of DC, CVA, TIA,~Afib, CAD, kidney stone, appendectomy, hernia repair, L knee replacement, herniated lumbar discs.~ He presents to the ED today complaining of sudden onset severe midsternal chest pain starting a few hours prior to arrival.~ He describes the chest pain as sharp and rates it a 10/10. Patient states the chest pain radiates to the left arm with associated numbness and tingling in his distal left upper ext. Associated symptoms include nausea, intermittent dyspnea, palpitations, and severe left sided headache.~ The headache is described as throbbing, rated 10/10 , with pain behind the left eye with slight vision changes, worse on the left side.~ Patient states the headache is similar to headaches he experienced preceding his previous TIA, CVA, and DC. Patient states he has been compliant with all his medications.~ Patient also complains of urinary frequency at night and increased thirst over the past week.~ Denies fever, sweats, vomiting, diarrhea, constipation, abdominal pain, hematuria, pain with urination. Of note , patient has history of drug seeking behavior. Hospital Course: Patient was admitted to rule out DC. ОЛЕГ panel was negative x3. CXR was unremarkable and EKG was normal sinus rhythm without acute ST-T segment changes. Cardiology (Dr. Lemos was consulted) who agreed that the patient would not need further work up because echo and stress test done in September/October 2016 were both normal. Patient also has a history of similar pain in the past that has been worked up and negative multiple times. Patient has been drug seeking in the past per multiple attendings. Upon discharge: Patient is clear for discharge per Dr. Moe. Patient was instructed to follow up with his PCP and the pain management doctor he has an upcoming appointment with. Please note that this is a summary of events. For more details please see complete medical record. Discharge Exam - Head Exam Head Exam: NORMAL INSPECTION - Additional Findings Additional findings: - Constitutional Appears: Non-toxic, No Acute Distress - Head Exam Head Exam: NORMAL INSPECTION - Eye Exam Eye Exam: EOMI - ENT Exam ENT Exam: Mucous Membranes Moist - Respiratory Exam Respiratory Exam: Clear to Ausculation Bilateral, NORMAL BREATHING PATTERN - Cardiovascular Exam Cardiovascular Exam: REGULAR RHYTHM, +S1, +S2. absent: Bradycardia, Murmur - GI/Abdominal Exam GI & Abdominal Exam: Soft, Normal Bowel Sounds. absent: Distended, Tenderness - Extremities Exam Extremities Exam: absent: Calf Tenderness, Pedal Edema - Neurological Exam Neurological Exam: Alert, Awake - Psychiatric Exam Psychiatric exam: Normal Affect, Normal Mood - Skin Skin Exam: Dry, Intact, Warm Discharge Plan - Follow Up Plan Condition: STABLE Disposition: HOME/ ROUTINE Additional Instructions: Please follow up with your primary care provider at the clinic for continuity of care and with the pain management doctor with the appointment you had already scheduled.
[2017-02-22 17:09] VITALS: PULSE 59
--- NOTE | 2017-02-22 17:24 | CARD ---
APPROVED REPORT EKG Measurement Heart [id number] <Conclusion> Sinus bradycardia Otherwise normal ECG
[2017-02-22 17:26] VITALS: RESP 18
[2017-02-22 18:05] VITALS: PULSE 64
[2017-02-22 18:07] VITALS: BP 124/70
[2017-02-23] MEDS ORDERED: Fluticasone-Salmeterol 250-50mcg Diskus IH SCH (08:00)
[2017-02-23 18:37] VITALS: O2SAT 99
== END 2017-02-22 18:58 | disposition home or self-care (01) ==
LOC: C.ER 11:31 → C.9E 15:08 → C.6T 02-22 13:23
PROVIDERS: ADMIT Internal Medicine; ATTEND Internal Medicine
DX: R07.89 Other chest pain (principal); I10 Essential (primary) hypertension; J44.9 Chronic obstructive pulmonary disease, unspecified; Z87.891 Personal history of nicotine dependence; I25.2 Old myocardial infarction
CPT/HCPCS: 70450; 71020; 80053; 80324; 80345; 80346; 80349; 80353; 80358; 80361; 81001; 83036; 83690; 83735; 83880; 83992; 84100; 84484; 85025; 85027; 85610; 85730; 93005; 94150; 94640; 96372; 96374; 96376; 99285; G0378; J1644; J2270

== ENCOUNTER 2017-05-16 12:17 | Day surgery (SDC) | payer OTHER ==
[2017-05-13 10:05] VITALS: BMI 25.7
[2017-05-16 08:26] VITALS: PULSE 61
[2017-05-16] MEDS ORDERED: Midazolam 2 MG/2 ML VIAL ONE (13:24)
[2017-05-16] MEDS ORDERED: Iodixanol 320 MG/ML 100 ML BOTTLE IV ONE (14:08)
[2017-05-16] MEDS ORDERED: Oxycodone/Acetaminophen 5/325 mg Tab ONE (16:22)
[2017-05-16] MEDS ORDERED: Oxycodone/Acetaminophen 5/325 mg Tab PO STA (16:31)
--- NOTE | 2017-05-18 02:09 | CATH ---
APPROVED REPORT HISTORY The patient is a 62 year-old male with a history of : previous CVA remote >= 2 weeks, peripheral vascular disease, tobacco history(40) : The patient is a former smoker, hypertension, dyslipidemia, family history of premature CAD. INDICATION The indication(s) include : unstable angina (>48 hrs to = 72 hrs), murmur, chest pain, atrial fibrillation, dyspnea. CASE TECHNIQUE The patient was brought electively to the Cardiac Catheterization Laboratory in a fasting state and was prepped and draped in a sterile manner. The right femoral groin was infiltrated with 2% Lidocaine subcutaneous anesthesia. A sheath was inserted into the right femoral artery without difficulty. Coronary angiography was performed using coronary diagnostic catheters. The left coronary system was accessed and visualized with a Diagnostic catheter. The right coronary system was accessed and visualized with a Diagnostic catheter. The left ventricle was accessed and visualized with a Diagnostic catheter. Left ventricular/Aortic Valve gradient assessed on pullback. Left ventriculogram was performed in [place] projection. Pre-demployment femoral angiogram was performed . Closure device was deployed with a Fr Mynx without any complications. The patient tolerated the procedure well and there were no complications associated with the procedure. Vessel Analysis The patient's coronary anatomy is co-dominant. The left anterior descending artery is a large size vessel without stenosis. The first diagonal branch is a medium size vessel without stenosis. The second diagonal branch is a mediumsmall size vessel without stenosis. The LAD COMES OFF AORTA SEPERATELY FROM THE LCX. LAD ENGAGED WITH JL4 CATHETER The circumflex artery is a mediumlarge size vessel without stenosis. The first obtuse marginal branch is a medium size vessel with stenosis. There is a 50% stenosis in the proximal segment. The second obtuse marginal branch is a medium size vessel without stenosis. The left posterior descending artery is a large size vessel without stenosis. THE LCX COMES OFF AORTA SEPERATELY. THE LCX ENGAGED WITH JL5 CATHETER The right coronary artery is a small size vessel without stenosis. The right posterior descending artery is a small size vessel without stenosis. The right posterolateral branch is a small size vessel without stenosis. Left Ventricle The left ventricle is NORMAL in size with NORMAL contractility. The left ventricular ejection fraction is estimated to be 60%. The left ventricular end diastolic pressure is 10 mmHg. There was no gradient across the aortic valve upon pullback. Conclusion Single Vessel CAD SEPERATE OSTIA OF LAD AND LCX CO-DOMINANT SYSTEM Recommendations Smoking Cessation Aggressive Medical Therapy Medical Therapy
== END 2017-05-16 16:45 | disposition home or self-care (01) ==
LOC: C.CATHLAB 12:17
PROVIDERS: ATTEND Internal Medicine Cardiovascular Disease
DX: I25.110 Atherosclerotic heart disease of native coronary artery with unstable angina pectoris (principal); E78.5 Hyperlipidemia, unspecified; I10 Essential (primary) hypertension; I48.91 Unspecified atrial fibrillation; Z87.891 Personal history of nicotine dependence
CPT/HCPCS: 93452; J2250; J3010; Q9967

== ENCOUNTER 2017-09-08 12:39 | Emergency (ER) | payer MEDICAID ==
[2017-09-08 12:40] VITALS: PULSE 61; BMI 25.7
--- NOTE | 2017-09-08 13:21 | C.PDOC ---
History Of Present Illness 62 y/o male presents to the ED for complains of low back pain, worsened yesterday. Patient reports he fell yesterday, and tried to break the fall by grabbing onto another object, but felt his back strain in the process. Now complaining of left-sided low back pain radiating down to the left hip. Of note patient has a history of chronic low back pain, but reports his current pain seems aggravated when compared to usual. Denies any weakness, numbness, tingling , dysuria, or incontinence of bowel/bladder. Time Seen by Provider: 09/08/17 13:28 Chief Complaint (Nursing): Back Pain History Per: Patient History/Exam Limitations: no limitations Onset/Duration Of Symptoms: Days Current Symptoms Are (Timing): Still Present Past Medical History Reviewed: Historical Data, Nursing Documentation, Vital Signs Vital Signs: Last Vital Signs Temp 98 F 09/08/17 14:35 Pulse 75 09/08/17 14:35 Resp 20 09/08/17 14:35 BP 144/84 09/08/17 14:35 Pulse Ox 99 09/08/17 15:12 - Medical History PMH: Anxiety, Arthritis, Asthma, Atrial Fibrillation, Back Problems, Bipolar Disorder, CAD, Cardia Arrhythmia, COPD, CVA, Depression, Hepatitis, HTN, Post Traumatic Stress Disorder (1985 of 2 y/o daughter), TIA (March 2016/ JUN 2016) Denies: Diabetes, HIV, Chronic Kidney Disease, Seizures, Sexually Transmitted Disease Surgical History: Appendectomy, Tonsillectomy Denies: Carotid Endarterectomy - [facility] Procedures DILATION OF RIGHT URETER WITH INTRALUMINAL DEVICE, ENDO (11/17/16) DX ULTRASOUND-HEART (05/05/14) FLUOROSCOPY OF KIDNEY, URETER & BLADDER USING OTH CONTRAST (11/17/16) INSERTION OF INFUSION DEV INTO SUP VENA CAVA, PERC APPROACH (07/09/15) MEASURE OF CARDIAC SAMPL & PRESSURE, L HEART, PERC APPROACH (05/14/17) PERCUTANEOUS ABDOMINAL DRAINAGE (05/05/14) PLAIN RADIOGRAPHY OF LEFT HEART USING OTHER CONTRAST (05/14/17) REMOVAL OF INTRALUMINAL DEVICE FROM URETER, ENDO (12/15/16) ULTRASONOGRAPHY OF RIGHT AND LEFT HEART, TRANSESOPHAGEAL (07/09/15) VENOUS CATHETERIZATION NEC (05/05/14) Family History: States: Unknown Family Hx - Social History Hx Tobacco Use: Yes (1ppd from ages [age] ) Hx Alcohol Use: No Hx Substance Use: No - Immunization History Hx Tetanus Toxoid Vaccination: Yes Hx Influenza Vaccination: Yes (2017) Hx Pneumococcal Vaccination: Yes (2015) Review Of Systems Except As Marked, All Systems Reviewed And Found Negative. Constitutional: Negative for: Fever Genitourinary: Negative for: Dysuria, Incontinence Musculoskeletal: Positive for: Back Pain Neurological: Negative for: Weakness, Numbness Physical Exam - Physical Exam Appears: Non-toxic, No Acute Distress Skin: Normal Color, Warm, Dry Head: Atraumatic, Normacephalic Eye(s): bilateral: Normal Inspection, PERRL, EOMI Oral Mucosa: Moist Neck: Normal ROM, Supple Chest: Symmetrical Cardiovascular: Rhythm Regular Respiratory: Normal Breath Sounds, No Accessory Muscle Use Back: No Vertebral Tenderness, Decreased ROM (secondary to pain), Paraspinal Tenderness (to left lumbar region) Extremity: Normal ROM, Tenderness (over the left hip), No Deformity, No Swelling Pulses: Left Dorsalis Pedis: Normal, Right Dorsalis Pedis: Normal Neurological/Psych: Oriented x3, Normal Speech, No Other (focal deficits) ED Course And Treatment O2 Sat by Pulse Oximetry: 99 (RA) Pulse Ox Interpretation: Normal - Other Rad Hip x-ray X-Ray: Read By Radiologist Interpretation: FINDINGS: BONES: No acute fracture. JOINTS: Normal. SOFT TISSUES: Normal. OTHER FINDINGS: None. IMPRESSION: No demonstrated fracture or dislocation. LS x-ray X-Ray: Read By Radiologist Interpretation: FINDINGS: BONES: Levoconvex curvature of the lumbar spine centered at L3. Grade 1 retrolisthesis of L4 on L5. Grade 1 anterolisthesis of L5 on S1. No fracture. DISC SPACES: Multilevel disc space narrowing. OTHER FINDINGS: None. IMPRESSION: No acute fracture. Multilevel degenerative changes. Progress Note: Both x-rays negative. Ordered Toradol but patient declined and states he is allergic to Toradol. Given Tylenol and Lidoderm patch. On reevaluation patient reports improvement in pain and is stable for d/c home. Advised to follow up with primary doctor in 1-2 days Disposition Counseled Patient/Family Regarding: Studies Performed, Diagnosis, Need For Followup, Rx Given - Disposition Disposition: HOME/ ROUTINE Disposition Time: 15:09 Condition: STABLE Additional Instructions: Follow up in Clinic within 2-3 days. Return to ED if feel worse. 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 - Scribe Statement The provider has reviewed the documentation as recorded by the Scribe (Kimberlyn Krishnamurthy) All medical record entries made by the Scribe were at my direction and personally dictated by me. I have reviewed the chart and agree that the record accurately reflects my personal performance of the history, physical exam, medical decision making, and the department course for this patient. I have also personally directed, reviewed, and agree with the discharge instructions and disposition.
--- NOTE | 2017-09-08 14:33 | RAD ---
PROCEDURE: Left Hip X-ray Radiographs. HISTORY: fall COMPARISON: CT scan of the abdomen pelvis dated 12/04/2016. FINDINGS: BONES: No acute fracture. JOINTS: Normal. SOFT TISSUES: Normal. OTHER FINDINGS: None. IMPRESSION: No demonstrated fracture or dislocation.
[2017-09-08] MEDS ORDERED: Lidocaine 5% Patch TD STA (14:34)
--- NOTE | 2017-09-08 14:35 | RAD ---
PROCEDURE: Radiographs of the Lumbar Spine. HISTORY: fall COMPARISON: CT scan of the abdomen pelvis dated 12/04/2016. FINDINGS: BONES: Levoconvex curvature of the lumbar spine centered at L3. Grade 1 retrolisthesis of L4 on L5. Grade 1 anterolisthesis of L5 on S1. No fracture. DISC SPACES: Multilevel disc space narrowing. OTHER FINDINGS: None. IMPRESSION: No acute fracture. Multilevel degenerative changes.
[2017-09-08 14:36] VITALS: BP 144/84; PULSE 75; RESP 20; TEMP 98
[2017-09-08] MEDS ORDERED: Lidocaine 5% Patch TD ONE (14:43)
[2017-09-08 15:12] VITALS: O2SAT 99
== END 2017-09-08 15:21 | disposition home or self-care (01) ==
LOC: C.ER 12:39
DX: S39.012A Strain of muscle, fascia and tendon of lower back, initial encounter (principal); W19.XXXA Unspecified fall, initial encounter; Y92.9 Unspecified place or not applicable

== ENCOUNTER 2017-11-09 12:02 | Emergency (ER) | payer MEDICAID ==
[2017-11-09 12:03] VITALS: PULSE 61; BMI 25.7
[2017-11-09 12:26] VITALS: BP 104/68; PULSE 92; RESP 18; TEMP 98; O2SAT 98
--- NOTE | 2017-11-09 12:59 | C.PDOC ---
History Of Present Illness 62 yo male w/PMHx of depression, comes in for evaluation of palpable mass noted over right elbow " after they tried to take blood work 3 days ago". Otherwise, pt denies skin changes, fever, chills, skin redness or open wounds. Ambulate to Ed for evaluation, not in nay apparent distress. Time Seen by Provider: 11/09/17 12:38 Chief Complaint (Nursing): Upper Extremity Problem/Injury History Per: Patient Past Medical History Reviewed: Historical Data, Nursing Documentation, Vital Signs Vital Signs: Last Vital Signs Temp 98.0 F 11/09/17 12:22 Pulse 92 H 11/09/17 12:22 Resp 18 11/09/17 12:22 BP 104/68 11/09/17 12:22 Pulse Ox 98 11/09/17 12:22 - Medical History PMH: Anxiety, Arthritis, Asthma, Atrial Fibrillation, Back Problems, Bipolar Disorder, CAD, Cardia Arrhythmia, COPD, CVA, Depression, Hepatitis, HTN, Post Traumatic Stress Disorder (1985 of 2 y/o daughter), TIA (March 2016/ JUN 2016) Denies: Diabetes, HIV, Chronic Kidney Disease, Seizures, Sexually Transmitted Disease Surgical History: Appendectomy, Tonsillectomy Denies: Carotid Endarterectomy - [facility] Procedures DILATION OF RIGHT URETER WITH INTRALUMINAL DEVICE, ENDO (11/17/16) DX ULTRASOUND-HEART (05/05/14) FLUOROSCOPY OF KIDNEY, URETER & BLADDER USING OTH CONTRAST (11/17/16) INSERTION OF INFUSION DEV INTO SUP VENA CAVA, PERC APPROACH (07/09/15) MEASURE OF CARDIAC SAMPL & PRESSURE, L HEART, PERC APPROACH (05/14/17) PERCUTANEOUS ABDOMINAL DRAINAGE (05/05/14) PLAIN RADIOGRAPHY OF LEFT HEART USING OTHER CONTRAST (05/14/17) REMOVAL OF INTRALUMINAL DEVICE FROM URETER, ENDO (12/15/16) ULTRASONOGRAPHY OF RIGHT AND LEFT HEART, TRANSESOPHAGEAL (07/09/15) VENOUS CATHETERIZATION NEC (05/05/14) Family History: States: Unknown Family Hx - Social History Hx Tobacco Use: Yes (1ppd from ages [age] ) Hx Alcohol Use: No Hx Substance Use: No - Immunization History Hx Tetanus Toxoid Vaccination: Yes Hx Influenza Vaccination: Yes (2016) Hx Pneumococcal Vaccination: Yes (2014) Review Of Systems Except As Marked, All Systems Reviewed And Found Negative. Constitutional: Negative for: Fever, Chills ENT: Negative for: Throat Pain Cardiovascular: Negative for: Chest Pain Musculoskeletal: Positive for: Arm Pain Skin: Negative for: Rash, Bruising Neurological: Negative for: Weakness, Numbness Physical Exam - Physical Exam Appears: Well, Non-toxic, No Acute Distress Skin: Normal Color, Warm, Dry, No Rash Head: Normacephalic Eye(s): bilateral: PERRL Extremity: Normal ROM (a), Tenderness (mild over inner aspect Right elbow), Capillary Refill (less than 2sec to Right hand), No Deformity, No Swelling, Other (small 1sm diameter slightly tender palpable soft mass inner aspect Right elbow. No skin changes, no erythema, no flactulance.) Neurological/Psych: Oriented x3, Normal Speech, Normal Motor, Normal Sensation, Normal Reflexes ED Course And Treatment O2 Sat by Pulse Oximetry: 98 Pulse Ox Interpretation: Normal Progress Note: On re-eval, pt is afebrile, hemodynamicaly stable. Non-toxic. RURE: exam c/w small palpable induration likely hematoma. no evidence of cellulitis or abscess. FAROM, no neurovascular deficits. Pt advised. REF. TO F /U WITH PMD IN 1-2 DAYS FOR RE-EVAL. return [facility] [place]. Disposition Counseled Patient/Family Regarding: Diagnosis, Need For Followup - Disposition Referrals: Jenny Garrett MD [Staff Provider] - Disposition: HOME/ ROUTINE Disposition Time: 12:55 Condition: STABLE Additional Instructions: Warm compresses to area Stephan wrap to Right elbow follow up with PMD in 1-2 days for re-evaluation. return if any new changes. Instructions: Contusion (DC) - Clinical Impression Clinical Impression: Hematoma
== END 2017-11-09 13:20 | disposition home or self-care (01) ==
LOC: C.ER 12:02
DX: S50.01XA Contusion of right elbow, initial encounter (principal); X58.XXXA Exposure to other specified factors, initial encounter

== ENCOUNTER 2017-11-15 02:58 | Inpatient (IN) | payer MEDICAID ==
--- NOTE | 2017-11-15 03:17 | C.PDOC ---
History Of Present Illness 62 y/o male brought by ALS to ED for complaints of chest pain that radiates to his left arm that began today at 1:30AM. Patient received 324mg of aspirin by ALS. Patient describes pain as dull,aching and radiating to left arm associated with chest wall pain. Denies any other physical complaints. Time Seen by Provider: 11/15/17 03:17 Chief Complaint (Nursing): Chest Pain History Per: Patient History/Exam Limitations: no limitations Onset/Duration Of Symptoms: Hrs Current Symptoms Are (Timing): Still Present Context: Other Severity: Moderate Pain Scale Rating Of: 4 Quality: Dull, Aching, Tightness, Pressure Associated Symptoms: denies: Nausea, Dyspnea, Diaphoresis, Syncope Modifying Factors: None Exacerbating Factors: None Alleviating Factors: None Recent travel outside of the [place]: No Additional History Per: Patient Past Medical History Reviewed: Historical Data, Nursing Documentation, Vital Signs Vital Signs: Last Vital Signs Temp 102.8 F H 11/15/17 03:17 Pulse 96 H 11/15/17 03:42 Resp 31 H 11/15/17 03:42 BP 137/78 11/15/17 03:42 Pulse Ox 96 11/15/17 04:12 - Medical History PMH: Anxiety, Arthritis, Asthma, Atrial Fibrillation, Back Problems, Bipolar Disorder, CAD, Cardia Arrhythmia, COPD, CVA, Depression, Hepatitis, HTN, Post Traumatic Stress Disorder (1985 of 2 y/o daughter), TIA (March 2016/ JUN 2016) Surgical History: Appendectomy, Tonsillectomy - [facility] Procedures DILATION OF RIGHT URETER WITH INTRALUMINAL DEVICE, ENDO (11/17/16) DX ULTRASOUND-HEART (05/05/14) FLUOROSCOPY OF KIDNEY, URETER & BLADDER USING OTH CONTRAST (11/17/16) INSERTION OF INFUSION DEV INTO SUP VENA CAVA, PERC APPROACH (07/09/15) MEASURE OF CARDIAC SAMPL & PRESSURE, L HEART, PERC APPROACH (05/14/17) PERCUTANEOUS ABDOMINAL DRAINAGE (05/05/14) PLAIN RADIOGRAPHY OF LEFT HEART USING OTHER CONTRAST (05/14/17) REMOVAL OF INTRALUMINAL DEVICE FROM URETER, ENDO (12/15/16) ULTRASONOGRAPHY OF RIGHT AND LEFT HEART, TRANSESOPHAGEAL (07/09/15) VENOUS CATHETERIZATION NEC (05/05/14) Family History: States: Unknown Family Hx - Social History Hx Tobacco Use: Yes (1ppd from ages [age] ) Hx Alcohol Use: No Hx Substance Use: No - Immunization History Hx Tetanus Toxoid Vaccination: Yes Hx Influenza Vaccination: Yes (2017) Hx Pneumococcal Vaccination: Yes (2015) Review Of Systems Constitutional: Negative for: Fever, Chills Eyes: Negative for: Vision Change ENT: Negative for: Throat Pain Cardiovascular: Positive for: Chest Pain (Radiates to left arm ) Respiratory: Negative for: Shortness of Breath Gastrointestinal: Negative for: Nausea, Vomiting, Abdominal Pain, Diarrhea Genitourinary: Negative for: Dysuria Musculoskeletal: Negative for: Back Pain Skin: Negative for: Rash Neurological: Negative for: Weakness, Numbness Psych: Negative for: Anxiety Physical Exam - Physical Exam Appears: Non-toxic, No Acute Distress Skin: Warm, Dry Head: Normacephalic Eye(s): bilateral: Normal Inspection Oral Mucosa: Moist Neck: Trachea Midline, Supple Chest: Symmetrical, No Tenderness Cardiovascular: Rhythm Regular Respiratory: No Rales, No Rhonchi, No Wheezing Gastrointestinal/Abdominal: Soft, No Tenderness, No Distention Back: No CVA Tenderness Extremity: Normal ROM, No Pedal Edema, No Deformity Extremity: Bilateral: Atraumatic, Normal Color And Temperature, Normal ROM Pulses: Left Dorsalis Pedis: Normal, Right Dorsalis Pedis: Normal Neurological/Psych: Oriented x3, Normal Speech (Speaking in full sentences ) Gait: Steady ED Course And Treatment - Laboratory Results Result Diagrams: 11/15/17 03:40 11/15/17 03:40 ECG: Interpreted By Me, Viewed By Me ECG Rhythm: Sinus Rhythm (94), Nonspecific Changes O2 Sat by Pulse Oximetry: 96 (RA) Pulse Ox Interpretation: Normal - Radiology CXR: Interpreted by Me, Viewed By Me CXR Interpretation: No: Infiltrates, Fracture, Pnemothorax Progress Note: Ordered blood work, BG, EKG, CXR, blood culture and urinalysis. Disposition Discussed With : Sunny Tierney Comment: accepted the pt on his service and took over the care at 4:46 AM Doctor Will See Patient In The: ED Counseled Patient/Family Regarding: Studies Performed, Diagnosis - Disposition Disposition: HOSPITALIZED Disposition Time: 03:17 Condition: FAIR Forms: [facility] (Malagasy) - POA Present On Arrival: Poor Glycemic Control - Clinical Impression Clinical Impression: Chest pain - Scribe Statement The provider has reviewed the documentation as recorded by the Peteiblucia Howe All medical record entries made by the Peteiblucia were at my direction and personally dictated by me. I have reviewed the chart and agree that the record accurately reflects my personal performance of the history, physical exam, medical decision making, and the department course for this patient. I have also personally directed, reviewed, and agree with the discharge instructions and disposition. Decision To Admit - Pt Status Changed To: Hospital Disposition Of: Inpatient - Admit Certification Admit to Inpatient:: After my assessment, the patient will require hospitalization for at least two midnights. This is because of the severity of symptoms shown, intensity of services needed, and/or the medical risk in this patient being treated as an outpatient. - InPatient: Physician Admission Certification: I certify that this patient requires 2 or more midnights of care for the following reason:: After my assessment, the patient will require hospitalization for at least two midnights. This is because of the severity of symptoms shown, intensity of services needed, and/or the medical risk in this patient being treated as an outpatient. - . Bed Request Type: Telemetry Admitting Physician: Sunny Tierney Patient Diagnosis: Chest pain
[2017-11-15 03:19] VITALS: BMI 25.3
[2017-11-15 03:44] LABS: BASO % 0.3 % (0.0-2.0); EOS % 0.1 % (0.0-4.0); HEMOGLOBIN 11.2 g/dL (12.0-18.0); LYMPH # 0.7 K/uL (1.0-4.3); LYMPH % 10.6 % (20.0-40.0); MEAN CELL VOLUME 88.2 fL (80.0-94.0); MEAN CORPUSCULAR HEMOGLOBIN 30.4 pg (27.0-31.0); MEAN CORPUSCULAR HGB CONC 34.4 g/dL (33.0-37.0); MEAN PLATELET VOLUME 7.1 fL (7.2-11.7); MONO # 0.7 K/uL (0.0-0.8); MONO % 10.2 % (0.0-10.0); NEUT % 78.8 % (50.0-75.0); RBC 3.69 Mil/uL (4.40-5.90); RED CELL DISTRIBUTION WIDTH 14.5 % (11.5-14.5); WHITE BLOOD COUNT 6.4 K/uL (4.8-10.8)
[2017-11-15 03:52] LABS: INR 1.5; PROTHROMBIN TIME 16.3 SECONDS (9.7-12.2)
[2017-11-15] MEDS ORDERED: Nitroglycerin 2% Ointment Foilpak UD TOP STA (03:58)
[2017-11-15] MEDS ORDERED: Nitroglycerin 2% Ointment Foilpak UD TOP ONE (04:00)
[2017-11-15 04:09] LABS: VENOUS BLOOD GAS BASE EXCESS 2.8 mmol/L (0.0-2.0); VENOUS BLOOD GAS PCO2 40 mmHg (40-60); VENOUS BLOOD GAS PO2 38 mm/Hg (30-55); VENOUS BLOOD PH 7.44 (7.32-7.43)
[2017-11-15 04:37] LABS: ALB/GLOB RATIO 1.4 (1.0-2.1); ALBUMIN 4.2 g/dL (3.5-5.0); ALT/SGPT 47 U/L (21-72); AST/SGOT 45 U/L (17-59); BLOOD UREA NITROGEN 17 mg/dL (9-20); GFR AFRICAN-AMERICAN > 60; GFR NON-AFRICAN AMERICAN > 60
--- NOTE | 2017-11-15 05:12 | CP.PCM.HP ---
<Tete Benjamin - Last Filed: 11/15/17 06:03> History of Present Illness - History of Present Illness History of Present Illness: Medicine Note for Hospitalist Service CC: Chest Pain HPI: This is a 62 year old male with HTN, CAD, IGT, Atrial Fibrillation on Xarelto, MO (July 2016), TIAs x2 (Mar 2016 & Jun 2016) Carotid disease, COPD, Nephrolithiasis and untreated Hepatitis C who presents to the ED with chest pain that started 1am this morning. Patient reports he has sudden sharp, intermittent chest pain that radiated down his left arm, leaving it a tingling/ numb sensation. Admitted to feeling feverish, denied any diaphoresis, shortness of breath, or syncope. He admits he has had multiple episodes of this throughout the years. Patient follows up closely with the [facility] and Cardio and is compliant with all his medications. He admits to subjective fevers, productive cough x 3-4 days, and generalized weakness. Patient does not have air conditioning so has been residing in his apartment with outdoor temperatures of ~ 100. Denied any recent travel or sick contacts. He did not take any OTC medications. Denied any associated chills, headache, shortness of breath, abdominal pain, n/v/d/c, or urinary complaints. Reviewing medical records, as per [facility] - multiple stress tests done with no findings, last cardiac cath was 05/2017 with no obstructive coronaries noted, single vessel CAD. ECHO done 05/2017 showed normal LVEF. PMHx: Afib, CAD, MO (July 2016), TIA x 2 (Mar 2016, Jun 2016), COPD, GERD, Panic disorder, Anxiety disorder, PTSD, Recent R rotator cuff tear that requires surgical repair, long standing cervical spinal stenosis s/p fall from 18ft [employer] branch while at work in 1999. PSHx: L knee patella fx (1981), Appy (childhood), 2 hernias (umbilical and inguinal in 1990s) Meds: albuterol, Advair, Omeprazole, ASA, Cardizem, Digoxin, Xarelto, HCTZ, Metoprolol, Simvastatin, Xanax, paxil, bupropion, vicoprofen and MS contin ER - confirmed with clinic medication list from 10/18/17 All: NKDA SHx: 30 pack / year history- quit 2 years ago, denied any alcohol or illicit drug use FHx: M of CHF at 77. F still alive at 83. Brother #1 of CVA at 42, Brother #2 of MO at 48, Sister of MO at 46, sister of stroke, age not specified, Son of hirshsprung's disease during infancy PMD: Dr. Garrett Cardio: Dr. Charles Malcolm - last seen 08/18/2017 Present on Admission - Present on Admission Any Indicators Present on Admission: No Past Patient History - Infectious Disease Hx of Infectious Diseases: None - Tetanus Immunizations Tetanus Immunization: Unknown - Past Medical History & Family History Past Medical History?: Yes - Past Social History Smoking Status: Former Smoker - CARDIAC Hx Atrial Fibrillation: Yes Hx Cardia Arrhythmia: Yes Hx Hypertension: Yes - PULMONARY Hx Asthma: Yes Hx Chronic Obstructive Pulmonary Disease (COPD): Yes - NEUROLOGICAL Hx Transient Ischemic Attacks (TIA): Yes (March 2016/JUN 2016) - HEENT Hx HEENT Problems: Yes Hx Cataracts: Yes ("early stages" as per patient) - RENAL Hx Chronic Kidney Disease: No - ENDOCRINE/METABOLIC Hx Endocrine Disorders: No - HEMATOLOGICAL/ONCOLOGICAL Hx Human Immunodeficiency Virus (HIV): No - INTEGUMENTARY Hx Dermatological Problems: Yes Hx Psoriasis: Yes - MUSCULOSKELETAL/RHEUMATOLOGICAL Hx Arthritis: Yes - GASTROINTESTINAL Hx Gastrointestinal Disorders: No - GENITOURINARY/GYNECOLOGICAL Hx Sexually Transmitted Disorders: No - PSYCHIATRIC Hx Anxiety: Yes Hx Bipolar Disorder: Yes Hx Depression: Yes Hx Post Traumatic Stress Disorder: Yes (1986 of 2 y/o daughter) Hx Substance Use: No - SURGICAL HISTORY Hx Appendectomy: Yes Hx Tonsillectomy: Yes - ANESTHESIA Hx Anesthesia: Yes Hx Anesthesia Reactions: No Hx Malignant Hyperthermia: No Meds Allergies/Adverse Reactions: Allergies Allergy/AdvReac Type Severity Reaction Status Date / Time ketorolac [From Toradol] Allergy Verified 11/15/17 03:19 Physical Exam - Constitutional Appears: No Acute Distress - Head Exam Head Exam: NORMAL INSPECTION, NORMOCEPHALIC - Eye Exam Eye Exam: EOMI, Normal appearance. absent: Nystagmus, Scleral icterus Pupil Exam: NORMAL ACCOMODATION - ENT Exam ENT Exam: Mucous Membranes Moist - Respiratory Exam Respiratory Exam: Clear to Auscultation Bilateral, NORMAL BREATHING PATTERN. absent: Decreased Breath Sounds, Rales, Rhonchi, Wheezes, Stridor - Cardiovascular Exam Cardiovascular Exam: REGULAR RHYTHM, +S1, +S2. absent: Bradycardia, Tachycardia , Diastolic murmur, Irregular Rhythm, Systolic Murmur - GI/Abdominal Exam GI & Abdominal Exam: Normal Bowel Sounds, Soft. absent: Distended, Firm, Guarding, Organomegaly, Tenderness - Rectal Exam Rectal Exam: Deferred - Extremities Exam Extremities exam: Positive for: normal inspection, pedal pulses present. Negative for: pedal edema, tenderness - Back Exam Back exam: NORMAL INSPECTION - Neurological Exam Neurological exam: Alert, CN II-XII Intact, Oriented x3 - Psychiatric Exam Psychiatric exam: Normal Affect, Normal Mood - Skin Skin Exam: Dry, Intact, Normal Color, Warm Results - Vital Signs Recent Vital Signs: Last Vital Signs Temp 102.8 F H 11/15/17 03:17 Pulse 96 H 11/15/17 03:42 Resp 31 H 11/15/17 03:42 BP 137/78 11/15/17 03:42 Pulse Ox 96 11/15/17 04:48 - Labs Result Diagrams: 11/15/17 03:40 11/15/17 03:40 Labs: Laboratory Results - last 24 hr 11/15/17 11/15/17 11/15/17 03:40 03:40 03:40 WBC 6.4 RBC 3.69 L Hgb 11.2 L Hct 32.6 L MCV 88.2 MCH 30.4 MCHC 34.4 RDW 14.5 Plt Count 141 MPV 7.1 L Neut % (Auto) 78.8 H Lymph % (Auto) 10.6 L Angelina % (Auto) 10.2 H Eos % (Auto) 0.1 Baso % (Auto) 0.3 Neut # (Auto) 5.0 Lymph # (Auto) 0.7 L Angelina # (Auto) 0.7 Eos # (Auto) 0.0 Baso # (Auto) 0.0 PT 16.3 H INR 1.5 APTT 33 pO2 VBG pH VBG pCO2 VBG HCO3 VBG Total CO2 VBG O2 Sat (Calc) VBG Base Excess VBG Potassium Glucose Lactate Sodium 140 Potassium 4.0 Chloride 103 Carbon Dioxide 26 Anion Gap 14 BUN 17 Creatinine 1.0 Est GFR ( Amer) > 60 Est GFR (Non-Af Amer) > 60 Random Glucose 115 H Calcium 9.0 Total Bilirubin 1.0 AST 45 ALT 47 Alkaline Phosphatase 81 Troponin I < 0.0120 Total Protein 7.2 Albumin 4.2 Globulin 3.0 Albumin/Globulin Ratio 1.4 Venous Blood Potassium 11/15/17 04:00 WBC RBC Hgb Hct MCV MCH MCHC RDW Plt Count MPV Neut % (Auto) Lymph % (Auto) Angelina % (Auto) Eos % (Auto) Baso % (Auto) Neut # (Auto) Lymph # (Auto) Angelina # (Auto) Eos # (Auto) Baso # (Auto) PT INR APTT pO2 38 VBG pH 7.44 H VBG pCO2 40 VBG HCO3 26.5 VBG Total CO2 28.4 H VBG O2 Sat (Calc) 63.7 VBG Base Excess 2.8 H VBG Potassium 3.7 Glucose 105 Lactate 0.7 Sodium 136.0 Potassium Chloride 106.0 Carbon Dioxide Anion Gap BUN Creatinine Est GFR ( Amer) Est GFR (Non-Af Amer) Random Glucose Calcium Total Bilirubin AST ALT Alkaline Phosphatase Troponin I Total Protein Albumin Globulin Albumin/Globulin Ratio Venous Blood Potassium 3.7 Assessment & Plan - Assessment and Plan (Free Text) Plan: Chest Pain r/o ACS - Reviewing medical records, as per [facility] - multiple stress tests done with no findings, last cardiac cath was 05/2017 with no obstructive coronaries noted, single vessel CAD. ECHO done 05/2017 showed normal LVEF. - Closely follows in [facility] clinic and [facility] - Dr. Charles Malcolm (through [facility]) - Labs done 09/2017 - all within normal limits - ОЛЕГ negative, EKG NSR @ 96 BPM - F/U serial ROMIs, EKGs Fever - 102.8 on admission - Admitted to subjective fevers, productive cough at home x 3-4 days - No leukocytosis on labs, CXR unremarkable for infiltrates, consolidations or effusions - F/U adams cultures HTN - Continue Metoprolol 25mg BID, HCTZ 12.5mg daily IGT - A1C 5.5 (09/2017) - Lipid panel WNL Hx CAD Hx MO (07/2016) Hx TIAs - Continue ASA, Xarelto, Simvastatin Atrial Fibrillation - Continue Xarelto, Cardizem, Digoxin COPD - Continue Advair and Duonebs as needed Spinal stenosis - Continue MS contin 15mg ER BID PTSD/ Anxiety/ Depression - Continue Bupropion XL 150mg daily, Paxil 40mg daily Hx Nephrolithiasis Hx Untreated Hepatitis C Prophylactic Measures - GI PPX: Protonix - DVT PPX: Xarelto 20mg daily, SCDs - [facility]HD DW Tete Flower DO, PGY-2 <Sunny Tierney - Last Filed: 11/15/17 06:27> Results - Vital Signs Recent Vital Signs: Last Vital Signs Temp 100.0 F H 11/15/17 04:49 Pulse 94 H 11/15/17 04:49 Resp 24 11/15/17 04:49 BP 115/70 11/15/17 04:49 Pulse Ox 95 11/15/17 04:49 - Labs Result Diagrams: 11/15/17 03:40 11/15/17 03:40 Labs: Laboratory Results - last 24 hr 11/15/17 11/15/17 11/15/17 03:40 03:40 03:40 WBC 6.4 RBC 3.69 L Hgb 11.2 L Hct 32.6 L MCV 88.2 MCH 30.4 MCHC 34.4 RDW 14.5 Plt Count 141 MPV 7.1 L Neut % (Auto) 78.8 H Lymph % (Auto) 10.6 L Angelina % (Auto) 10.2 H Eos % (Auto) 0.1 Baso % (Auto) 0.3 Neut # (Auto) 5.0 Lymph # (Auto) 0.7 L Angelina # (Auto) 0.7 Eos # (Auto) 0.0 Baso # (Auto) 0.0 PT 16.3 H INR 1.5 APTT 33 pO2 VBG pH VBG pCO2 VBG HCO3 VBG Total CO2 VBG O2 Sat (Calc) VBG Base Excess VBG Potassium Glucose Lactate Sodium 140 Potassium 4.0 Chloride 103 Carbon Dioxide 26 Anion Gap 14 BUN 17 Creatinine 1.0 Est GFR ( Amer) > 60 Est GFR (Non-Af Amer) > 60 Random Glucose 115 H Calcium 9.0 Total Bilirubin 1.0 AST 45 ALT 47 Alkaline Phosphatase 81 Troponin I < 0.0120 Total Protein 7.2 Albumin 4.2 Globulin 3.0 Albumin/Globulin Ratio 1.4 Venous Blood Potassium 11/15/17 04:00 WBC RBC Hgb Hct MCV MCH MCHC RDW Plt Count MPV Neut % (Auto) Lymph % (Auto) Angelina % (Auto) Eos % (Auto) Baso % (Auto) Neut # (Auto) Lymph # (Auto) Angelina # (Auto) Eos # (Auto) Baso # (Auto) PT INR APTT pO2 38 VBG pH 7.44 H VBG pCO2 40 VBG HCO3 26.5 VBG Total CO2 28.4 H VBG O2 Sat (Calc) 63.7 VBG Base Excess 2.8 H VBG Potassium 3.7 Glucose 105 Lactate 0.7 Sodium 136.0 Potassium Chloride 106.0 Carbon Dioxide Anion Gap BUN Creatinine Est GFR ( Amer) Est GFR (Non-Af Amer) Random Glucose Calcium Total Bilirubin AST ALT Alkaline Phosphatase Troponin I Total Protein Albumin Globulin Albumin/Globulin Ratio Venous Blood Potassium 3.7 Assessment & Plan - Date & Time Date: 11/15/17 (I have seen and examined the patient. I agree with the findings and plan of care as documented by Dr. Benjamin. Patient with chest pain. History of MO. ROMIx3 with EKG. Aspirin and Statin. Consult to Cardio. Also with fever. Check urine and blood cultures. Monitor for acute changes.) Time: 06:26 Attending/Attestation - Attestation I have personally seen and examined this patient.: Yes I have fully participated in the care of the patient.: Yes I have reviewed all pertinent clinical information: Yes
[2017-11-15 06:27] LABS: SQUAMOUS EPITHIAL < 1 /hpf (0-5); URINE BILIRUBIN NEGATIVE (NEGATIVE); URINE BLOOD NEGATIVE (NEGATIVE); URINE CLARITY Clear (Clear); URINE COLOR Yellow (YELLOW); URINE GLUCOSE (UA) NORMAL (Normal); URINE LEUKOCYTE ESTERASE NEG Leu/uL (Negative); URINE PROTEIN NEGATIVE (NEGATIVE); URINE UROBILINOGEN NORMAL mg/dL (0.2-1.0)
--- NOTE | 2017-11-15 07:12 | CP.PCM.PN ---
<Reddy Black - Last Filed: 11/15/17 19:43> Subjective - Date & Time of Evaluation Date of Evaluation: 11/15/17 Time of Evaluation: 07:12 - Subjective Subjective: PGY-[address] Moe service, Patient is seen and examined at bedside. Patient was admitted a few hours ago to the hospital. Patient states he feels hot and sweating. Pt says he has a sharp stabbing pain in the middle of his chest with Left arm numbness and tingling. Patient complains of headaches, feeling lightheaded and shortness of breath. Pt says he continues to cough with green sputum. Patient denies chills, nausea, vomiting, abdominal pain, diarrhea, constipation or pain at urination. Objective - Vital Signs/Intake and Output Vital Signs (last 24 hours): Temp Pulse Resp BP Pulse Ox 100.0 F H 81 24 112/63 96 11/15/17 04:49 11/15/17 06:45 11/15/17 06:45 11/15/17 06:45 11/15/17 06:45 - Medications Medications: Current Medications Acetaminophen (Tylenol 325mg Tab) 650 mg PO Q6 PRN PRN Reason: Fever >100.4 F Albuterol/Ipratropium (Duoneb 3 Mg/0.5 Mg (3 Ml) Ud) 3 ml INH RQ6 PRN PRN Reason: Wheezing Alprazolam (Xanax) 0.5 mg PO HS PRN PRN Reason: Anxiety Aspirin (Ecotrin) 81 mg PO DAILY [facility] Bupropion HCl (Wellbutrin Xl) 150 mg PO DAILY [facility] Digoxin (Digoxin) 0.125 mg PO DAILY@1800 [facility] Diltiazem HCl (Cardizem) 30 mg PO Q6 [facility] Last Admin: 11/15/17 05:55 Dose: 30 mg Docusate Sodium (Colace) 100 mg PO TID [facility] Hydrochlorothiazide (Microzide) 12.5 mg PO DAILY [facility] Metoprolol Tartrate (Lopressor) 25 mg PO Q12 [facility] Morphine Sulfate (Morphine Extended Release Tab) 15 mg PO Q12 [facility] Pantoprazole Sodium (Protonix Ec Tab) 40 mg PO DAILY [facility] Paroxetine HCl (Paxil) 40 mg PO DAILY [facility] Rivaroxaban (Xarelto) 20 mg PO DAILY [facility] Rosuvastatin Calcium (Crestor) 2.5 mg PO HS [facility] Fluticasone/Salmeterol (Advair Diskus 250/50) 1 puff INH RQ12 [facility] - Labs Labs: 11/15/17 03:40 11/15/17 03:40 PT 16.3 SECONDS (9.7-12.2) H 11/15/17 03:40 INR 1.5 11/15/17 03:40 APTT 33 SECONDS (21-34) 11/15/17 03:40 - Constitutional Appears: Well, Non-toxic, No Acute Distress - Head Exam Head Exam: ATRAUMATIC, NORMAL INSPECTION, NORMOCEPHALIC - Eye Exam Eye Exam: EOMI, Normal appearance - ENT Exam ENT Exam: Normal Exam - Neck Exam Neck Exam: Full ROM, Normal Inspection - Respiratory Exam Respiratory Exam: Clear to Ausculation Bilateral, NORMAL BREATHING PATTERN. absent: Rales, Rhonchi, Wheezes - Cardiovascular Exam Cardiovascular Exam: REGULAR RHYTHM, +S1, +S2. absent: Bradycardia, Tachycardia , Gallop, Rubs, +S4, Murmur - GI/Abdominal Exam GI & Abdominal Exam: Soft, Normal Bowel Sounds. absent: Distended, Firm, Guarding, Tenderness - Extremities Exam Extremities Exam: Full ROM, Normal Inspection. absent: Joint Swelling, Pedal Edema, Tenderness - Neurological Exam Neurological Exam: Alert, Awake, Normal Gait, Oriented x3 - Psychiatric Exam Psychiatric exam: Normal Affect, Normal Mood - Skin Skin Exam: Dry, Intact, Normal Color Assessment and Plan - Assessment and Plan (Free Text) Plan: Chest Pain r/o ACS - Reviewing medical records, as per Garment Inspector - multiple stress tests done with no findings, last cardiac cath was 05/2017 with no obstructive coronaries noted, single vessel CAD. ECHO done 05/2017 showed normal LVEF. - Closely follows in [facility] clinic and Garment Inspector - Dr. Charles Malcolm (through [facility]) - Labs done 09/2017 - all within normal limits - ОЛЕГ negative x2 - EKG NSR @ 96 BPM - repeat EKG @ 7pm: normal sinus rhythm, normal HR - monitor symptoms overnight and vitals Fever -Admitted to subjective fevers, productive cough at home x 3-4 days - R/O Respiratory tract infection - temp 11/15 100.0 -> 98.4 -> 99.5 -> 103 -> 102.7 - WBC: 6.4 -11/15 Chest Xray: Interval rounded opacity right lung apex - indeterminate. CT chest without contrast adviced. -11/15 CT chest: rounded opacity at rt lung apex described on chest xray corresponds to constochondral juction on rib 1. No pulmonary nodule, mass or consolidations. -F/U blood cultures, urine culture -F/U am labs tomorrow -continue monitoring temperature -Tylenol 650 Q6 PRN for fevers greater 100.4 HTN - Continue Metoprolol 25mg BID, HCTZ 12.5mg daily IGT - A1C 5.5 (09/2017) - Lipid panel WNL Hx CAD, Hx [place] (07/2016) Hx TIAs - Continue ASA, Xarelto, Simvastatin Atrial Fibrillation - Continue Xarelto, Cardizem, Digoxin COPD - Continue Advair and Duonebs as needed Spinal stenosis - Continue MS contin 15mg ER BID PTSD/ Anxiety/ Depression - Continue Bupropion XL 150mg daily, Paxil 40mg daily Prophylactic Measures - GI PPX: Protonix - DVT PPX: Xarelto 20mg daily, SCDs - HHD Plan discussed with Dr. Abhi Black, PGY-1 <Newton Moe - Last Filed: 11/17/17 16:17> Objective - Vital Signs/Intake and Output Vital Signs (last 24 hours): Temp Pulse Resp BP Pulse Ox 102.7 F H 83 20 138/61 97 11/15/17 17:05 11/15/17 15:50 11/15/17 15:50 11/15/17 15:50 11/15/17 15:50 - Medications Medications: Current Medications Acetaminophen (Tylenol 325mg Tab) 650 mg PO Q6 PRN PRN Reason: Fever >100.4 F Last Admin: 11/15/17 17:05 Dose: 650 mg Albuterol/Ipratropium (Duoneb 3 Mg/0.5 Mg (3 Ml) Ud) 3 ml INH RQ6 PRN PRN Reason: Wheezing Alprazolam (Xanax) 0.5 mg PO HS PRN PRN Reason: Anxiety Aspirin (Ecotrin) 81 mg PO DAILY [facility] Last Admin: 11/15/17 10:30 Dose: 81 mg Bupropion HCl (Wellbutrin Xl) 150 mg PO DAILY [facility] Last Admin: 11/15/17 10:31 Dose: 150 mg Digoxin (Digoxin) 0.125 mg PO DAILY@1800 [facility] Diltiazem HCl (Cardizem) 30 mg PO Q6 [facility] Last Admin: 11/15/17 11:59 Dose: Not Given Docusate Sodium (Colace) 100 mg PO TID [facility] Last Admin: 11/15/17 14:04 Dose: 100 mg Hydrochlorothiazide (Microzide) 12.5 mg PO DAILY [facility] Last Admin: 11/15/17 10:30 Dose: 12.5 mg Vancomycin/Sodium Chloride (Vancomycin 1 Gm/Ns 200 Ml) 1 gm in 200 mls @ 133 mls/hr IVPB Q12H [facility] PRN Reason: Protocol Stop: 11/20/17 19:01 Metoprolol Tartrate (Lopressor) 25 mg PO Q12 [facility] Last Admin: 11/15/17 10:30 Dose: 25 mg Morphine Sulfate (Morphine Extended Release Tab) 15 mg PO Q12 [facility] Last Admin: 11/15/17 10:30 Dose: 15 mg Pantoprazole Sodium (Protonix Ec Tab) 40 mg PO DAILY [facility] Last Admin: 11/15/17 10:31 Dose: 40 mg Paroxetine HCl (Paxil) 40 mg PO DAILY [facility] Last Admin: 11/15/17 10:30 Dose: 40 mg Rivaroxaban (Xarelto) 20 mg PO DAILY [facility] Last Admin: 11/15/17 10:31 Dose: 20 mg Rosuvastatin Calcium (Crestor) 2.5 mg PO HS [facility] Fluticasone/Salmeterol (Advair Diskus 250/50) 1 puff INH RQ12 [facility] - Labs Labs: 11/15/17 03:40 PT 16.3 SECONDS (9.7-12.2) H 11/15/17 03:40 INR 1.5 11/15/17 03:40 APTT 33 SECONDS (21-34) 11/15/17 03:40 Attending/Attestation - Attestation I have personally seen and examined this patient.: Yes I have fully participated in the care of the patient.: Yes I have reviewed all pertinent clinical information, including history, physical exam and plan: Yes Notes (Text): Seen and examined by me this afternoon Patient has fever spikes,clear lungs on chest CT,urine clear, no nausea,no vomiting,no diarrhea Patient denies IV drug use,no recent hospitalization Blood drawn for routine test 2 weeks ago . It was difficult stick and had left forearm was swollen and tender as per him. on examination of his left forearm there is mild cellulites/mild tender swelling noted,clear lungs,no leg cellulites,no calf swelling or tenderness. patient has soft abdomen 1.Fever spikes/left arm cellulites 2.Chest pain Chest CT clear lungs. 3.afib 4.COPD 5.HTN 6.spinal stenosis 7.Anxiety Discussed with resident Repeat blood culture and start on IV Vanco follow blood cultures
--- NOTE | 2017-11-15 08:06 | RAD ---
Date of service: 11/15/2017 PROCEDURE: CHEST RADIOGRAPH, 1 VIEW HISTORY: chest pain COMPARISON: 02/21/2017 come FINDINGS: LUNGS: Interval rounded opacity projects over the right lung apex. Underlying pulmonary pathology here needs to be considered. Interval progressive costocartilaginous junctional calcifications an simulate this. Further evaluation is advised PLEURA: No pneumothorax or pleural fluid seen trace biapical pleural thickening is possible. CARDIOVASCULAR: Normal heart size. Tortuous and similar thoracic aorta. OSSEOUS STRUCTURES: Bilateral shoulder arthrosis right much more than left VISUALIZED UPPER ABDOMEN: Normal. OTHER FINDINGS: None. IMPRESSION: Interval rounded opacity right lung apex-indeterminate. CT of the chest without contrast for further evaluation advised. Comments: Findings called in and directly discussed with Dr. Rose in the ER on 11/15/2017 at 8:04 a.m.
[2017-11-15] MEDS: Morphine 15 mg SR Tab PO SCH ×2 (10:30→21:44)
[2017-11-15] MEDS: Pantoprazole 40 mg EC Tab PO SCH (10:31)
[2017-11-15] MEDS: buPROPion 150 mg/24 Hours XL Tab PO SCH (10:31)
--- NOTE | 2017-11-15 13:04 | CT ---
Date of service: 11/15/2017 PROCEDURE: CT Chest without contrast HISTORY: R round lung opacity,r/o mass/history of smorking COMPARISON: CT chest dated 05/05/2014. TECHNIQUE: Contiguous axial images were obtained through the chest without intravenous contrast enhancement. Sagittal and coronal reconstructions were performed. Radiation dose (DLP): 430.2 mGy-cm. This CT exam was performed using one or more of the following dose reduction techniques: Automated exposure control, adjustment of the mA and/or kV according to patient size, and/or use of iterative reconstruction technique. FINDINGS: LUNGS: Clear lungs. Visualized airway clear. MEDIASTINUM: Unremarkable thoracic aorta. No aneurysm. Normal sized heart. Main pulmonary artery unremarkable. No vascular congestion. No lymphadenopathy. PLEURA: No pleural fluid. No pneumothorax. BONES: No fracture. No destructive lesion. UPPER ABDOMEN: Multiple nonobstructive bilateral renal calculi. OTHER FINDINGS: None. IMPRESSION: Rounded opacity at the right lung apex described on reason chest radiograph corresponds to the costochondral junction of the 1st rib visualized on [place]. No pulmonary nodule, mass or consolidation.
[2017-11-15] MEDS: Digoxin 125 mcg (0.125 mg) Tab PO SCH (17:48)
[2017-11-15 18:12] LABS: CK-MB 0.29 ng/mL (0.0-3.38)
[2017-11-15] MEDS: Fluticasone-Salmeterol 250-50mcg Diskus INH SCH (19:25)
[2017-11-15] MEDS: Vancomycin 1 gm/NS 200 ml 1 GM/200 ML BAG IVPB SCH (19:28)
[2017-11-15 20:07] LABS: CK-MB < 0.22 ng/mL (0.0-3.38)
[2017-11-15] MEDS: Rosuvastatin Calcium 2.5 mg Tab PO SCH (21:44)
[2017-11-16] MEDS: Vancomycin 1 gm/NS 200 ml 1 GM/200 ML BAG IVPB SCH ×2 (06:07→19:00)
[2017-11-16] MEDS: Fluticasone-Salmeterol 250-50mcg Diskus INH SCH ×2 (07:25→19:27)
[2017-11-16] MEDS: Albuterol-Ipratrop 3 mg / 0.5 (3 ml) UD INH PRN (07:25)
[2017-11-16 07:27] LABS: BASO % 0.3 % (0.0-2.0); EOS % 0.4 % (0.0-4.0); HEMOGLOBIN 12.2 g/dL (12.0-18.0); LYMPH # 1.4 K/uL (1.0-4.3); LYMPH % 17.2 % (20.0-40.0); MEAN CELL VOLUME 89.2 fL (80.0-94.0); MEAN CORPUSCULAR HEMOGLOBIN 30.8 pg (27.0-31.0); MEAN CORPUSCULAR HGB CONC 34.5 g/dL (33.0-37.0); MEAN PLATELET VOLUME 7.8 fL (7.2-11.7); MONO # 0.9 K/uL (0.0-0.8); MONO % 11.7 % (0.0-10.0); NEUT # 5.6 K/uL (1.8-7.0); NEUT % 70.4 % (50.0-75.0); NRBC % 0.1 % (0.0-2.0); RBC 3.98 Mil/uL (4.40-5.90); RED CELL DISTRIBUTION WIDTH 14.4 % (11.5-14.5)
[2017-11-16 07:34] LABS: ALB/GLOB RATIO 1.2 (1.0-2.1); ALBUMIN 4.1 g/dL (3.5-5.0); ALT/SGPT 44 U/L (21-72); AST/SGOT 32 U/L (17-59); BLOOD UREA NITROGEN 12 mg/dL (9-20); CALCIUM 9.2 mg/dl (8.6-10.4); GFR AFRICAN-AMERICAN > 60; GFR NON-AFRICAN AMERICAN > 60
[2017-11-16] MEDS: Morphine 15 mg SR Tab PO SCH ×2 (10:13→21:21)
[2017-11-16] MEDS: buPROPion 150 mg/24 Hours XL Tab PO SCH (10:13)
[2017-11-16] MEDS: Pantoprazole 40 mg EC Tab PO SCH (10:13)
--- NOTE | 2017-11-16 17:20 | CARD ---
APPROVED REPORT Date of service: 11/15/2017 EKG Measurement Heart [id number] CO [id number] <Conclusion> Normal sinus rhythm Normal ECG
[2017-11-16] MEDS: Digoxin 125 mcg (0.125 mg) Tab PO SCH (17:44)
--- NOTE | 2017-11-16 19:39 | CP.PCM.PN ---
<Reddy Black - Last Filed: 11/16/17 21:34> Subjective - Date & Time of Evaluation Date of Evaluation: 11/16/17 Time of Evaluation: 05:30 - Subjective Subjective: Pgy-[address] Moe Patient is seen and examined at bedside. Patient complains of headache and feeling hot and sweating. Patient admits to mild shortness of breath and feeling weak. Patient says his chest pain has resolved, but feels tingling left arm. Patient continues to have mild cough, with green sputum. PAtient denies nausea, vomiting, diarrhea or constipation, back pain or dysuria. Objective - Vital Signs/Intake and Output Vital Signs (last 24 hours): Temp Pulse Resp BP Pulse Ox 98.0 F 81 20 113/71 99 11/16/17 15:03 11/16/17 15:03 11/16/17 15:03 11/16/17 15:03 11/16/17 15:03 - Medications Medications: Current Medications Acetaminophen (Tylenol 325mg Tab) 650 mg PO Q6 PRN PRN Reason: Fever >100.4 F Last Admin: 11/15/17 17:05 Dose: 650 mg Albuterol/Ipratropium (Duoneb 3 Mg/0.5 Mg (3 Ml) Ud) 3 ml INH RQ6 PRN PRN Reason: Wheezing Last Admin: 11/16/17 07:25 Dose: 3 ml Alprazolam (Xanax) 0.5 mg PO HS PRN PRN Reason: Anxiety Aspirin (Ecotrin) 81 mg PO DAILY [facility] Last Admin: 11/16/17 10:13 Dose: 81 mg Bupropion HCl (Wellbutrin Xl) 150 mg PO DAILY [facility] Last Admin: 11/16/17 10:13 Dose: 150 mg Digoxin (Digoxin) 0.125 mg PO DAILY@1800 [facility] Last Admin: 11/16/17 17:44 Dose: 0.125 mg Diltiazem HCl (Cardizem) 30 mg PO Q6 [facility] Last Admin: 11/16/17 17:44 Dose: 30 mg Docusate Sodium (Colace) 100 mg PO TID [facility] Last Admin: 11/16/17 17:44 Dose: 100 mg Hydrochlorothiazide (Microzide) 12.5 mg PO DAILY [facility] Last Admin: 11/16/17 10:12 Dose: 12.5 mg Vancomycin/Sodium Chloride (Vancomycin 1 Gm/Ns 200 Ml) 1 gm in 200 mls @ 133 mls/hr IVPB Q12H [facility] PRN Reason: Protocol Stop: 11/20/17 19:01 Last Admin: 11/16/17 19:00 Dose: 133 mls/hr Metoprolol Tartrate (Lopressor) 25 mg PO Q12 [facility] Last Admin: 11/16/17 10:13 Dose: 25 mg Morphine Sulfate (Morphine Extended Release Tab) 15 mg PO Q12 [facility] Last Admin: 11/16/17 10:13 Dose: 15 mg Pantoprazole Sodium (Protonix Ec Tab) 40 mg PO DAILY [facility] Last Admin: 11/16/17 10:13 Dose: 40 mg Paroxetine HCl (Paxil) 40 mg PO DAILY [facility] Last Admin: 11/16/17 10:12 Dose: 40 mg Rivaroxaban (Xarelto) 20 mg PO DAILY [facility] Last Admin: 11/16/17 10:12 Dose: 20 mg Rosuvastatin Calcium (Crestor) 2.5 mg PO HS [facility] Last Admin: 11/15/17 21:44 Dose: 2.5 mg Fluticasone/Salmeterol (Advair Diskus 250/50) 1 puff INH RQ12 [facility] Last Admin: 11/16/17 19:27 Dose: 1 puff - Labs Labs: 11/16/17 07:01 11/16/17 07:01 PT 16.3 SECONDS (9.7-12.2) H 11/15/17 03:40 INR 1.5 11/15/17 03:40 APTT 33 SECONDS (21-34) 11/15/17 03:40 - Constitutional Appears: Well, Non-toxic, No Acute Distress - Head Exam Head Exam: ATRAUMATIC, NORMAL INSPECTION, NORMOCEPHALIC - Eye Exam Eye Exam: EOMI, Normal appearance - ENT Exam ENT Exam: Mucous Membranes Moist, Normal Exam - Neck Exam Neck Exam: Normal Inspection - Respiratory Exam Respiratory Exam: Clear to Ausculation Bilateral, NORMAL BREATHING PATTERN. absent: Rales, Rhonchi, Wheezes - Cardiovascular Exam Cardiovascular Exam: REGULAR RHYTHM, +S1, +S2 - GI/Abdominal Exam GI & Abdominal Exam: Soft, Tenderness, Normal Bowel Sounds Additional comments: left lower quadrant pain with superficial and deep palpation - Extremities Exam Extremities Exam: Full ROM, Normal Inspection Additional comments: left distal area, anterior lateral forearm cellulite, nonerythematous, nonpurulent, not warm - Back Exam Back Exam: NORMAL INSPECTION - Neurological Exam Neurological Exam: Alert, Awake, Oriented x3 - Psychiatric Exam Psychiatric exam: Normal Affect - Skin Skin Exam: Dry, Intact, Normal Color Assessment and Plan - Assessment and Plan (Free Text) Plan: Chest Pain r/o ACS - Reviewing medical records, as per Healthcare Project Manager - multiple stress tests done with no findings, last cardiac cath was 05/2017 with no obstructive coronaries noted, single vessel CAD. ECHO done 05/2017 showed normal LVEF. - Closely follows in [facility] clinic and Healthcare Project Manager - Dr. Charles Malcolm (through [facility]) - Labs done 09/2017 - all within normal limits - ОЛЕГ negative x3 - EKG NSR @ 96 BPM - repeat EKG @ 7pm: normal sinus rhythm, normal HR - monitor symptoms overnight and vitals Fever - temp 11/16: 98.0F, stable - 11/16 WBC: 8.0 from 6.4 -F/U blood cultures: gram positive cocci preliminary Urine Culture: clean catch, no growth -Sputum culture: few epithelial cells, few WBC, moderate gram positive cocci in clusters -Tylenol 650 Q6 PRN for fevers greater 100.4 - Vanco 1gm in 200ml IVPB Q12 -F/U am labs tomorrow -continue monitoring temperature Right distal forearm cellulite -R/O infection -Patient denies IV drug use - 11/16 WBC: 8.0 - started on Vanco 1gm in 200ml IVPB Q12, on day until 11/20 -keep monitoring HTN - Continue Metoprolol 25mg BID, HCTZ 12.5mg daily -11/16 BP -->111/61 IGT - A1C 5.5 (09/2017) - Lipid panel WNL Hx CAD, Hx [place] (07/2016) Hx TIAs - Continue ASA, Xarelto, Simvastatin Atrial Fibrillation - Continue Xarelto, Cardizem, Digoxin Spinal stenosis - continue monitoring COPD - Continue Advair and Duonebs as needed PTSD/ Anxiety/ Depression - Continue Bupropion XL 150mg daily, Paxil 40mg daily Prophylactic Measures - GI PPX: Protonix - DVT PPX: Xarelto 20mg daily, SCDs - HHD Plan discussed with Dr. Abhi Black, PGY-1 <Newton Moe - Last Filed: 11/18/17 16:48> Objective - Vital Signs/Intake and Output Vital Signs (last 24 hours): Temp Pulse Resp BP Pulse Ox 97.7 F 76 18 100/66 97 11/18/17 15:00 11/18/17 15:00 11/18/17 15:00 11/18/17 15:00 11/18/17 15:00 Intake and Output: 11/18/17 11/18/17 06:59 18:59 Intake Total 550 Balance 550 - Medications Medications: Current Medications Acetaminophen (Tylenol 325mg Tab) 650 mg PO Q6 PRN PRN Reason: Fever >100.4 F Last Admin: 11/15/17 17:05 Dose: 650 mg Albuterol/Ipratropium (Duoneb 3 Mg/0.5 Mg (3 Ml) Ud) 3 ml INH RQ6 PRN PRN Reason: Wheezing Last Admin: 11/17/17 12:00 Dose: 3 ml Alprazolam (Xanax) 0.5 mg PO HS PRN PRN Reason: Anxiety Last Admin: 11/17/17 22:38 Dose: 0.5 mg Aspirin (Ecotrin) 81 mg PO DAILY [facility] Last Admin: 11/18/17 10:31 Dose: 81 mg Bupropion HCl (Wellbutrin Xl) 150 mg PO DAILY [facility] Last Admin: 11/18/17 10:31 Dose: 150 mg Digoxin (Digoxin) 0.125 mg PO DAILY@1800 [facility] Last Admin: 11/17/17 17:15 Dose: 0.125 mg Diltiazem HCl (Cardizem) 30 mg PO Q6 [facility] Last Admin: 11/18/17 11:57 Dose: 30 mg Docusate Sodium (Colace) 100 mg PO TID [facility] Last Admin: 11/18/17 14:04 Dose: Not Given Hydrochlorothiazide (Microzide) 12.5 mg PO DAILY [facility] Last Admin: 11/18/17 10:38 Dose: 12.5 mg Vancomycin/Sodium Chloride (Vancomycin 1 Gm/Ns 200 Ml) 1 gm in 200 mls @ 133 mls/hr IVPB Q12H [facility] PRN Reason: Protocol Stop: 11/20/17 19:01 Last Admin: 11/18/17 06:20 Dose: 133 mls/hr Gentamicin Sulfate 80 mg/ (Sodium Chloride) 102 mls @ 100 mls/hr IVPB Q8H [facility] PRN Reason: Protocol Last Admin: 11/18/17 14:04 Dose: 100 mls/hr Lactated Ringer's (Lactated Ringer's) 1,000 mls @ 125 mls/hr IV .Q8H ONE Stop: 11/18/17 19:22 Last Admin: 11/18/17 11:57 Dose: 125 mls/hr Metoprolol Tartrate (Lopressor) 25 mg PO Q12 [facility] Last Admin: 11/18/17 10:38 Dose: 25 mg Morphine Sulfate (Morphine Extended Release Tab) 15 mg PO Q12 [facility] Last Admin: 11/18/17 10:38 Dose: 15 mg Pantoprazole Sodium (Protonix Ec Tab) 40 mg PO DAILY [facility] Last Admin: 11/18/17 10:31 Dose: 40 mg Paroxetine HCl (Paxil) 40 mg PO DAILY [facility] Last Admin: 11/18/17 10:30 Dose: 40 mg Rivaroxaban (Xarelto) 20 mg PO DAILY [facility] Last Admin: 11/18/17 10:31 Dose: 20 mg Rosuvastatin Calcium (Crestor) 2.5 mg PO HS [facility] Last Admin: 11/17/17 21:32 Dose: 2.5 mg Fluticasone/Salmeterol (Advair Diskus 250/50) 1 puff INH RQ12 [facility] Last Admin: 11/18/17 07:37 Dose: 1 puff - Labs Labs: 11/18/17 06:21 11/18/17 06:21 PT 16.3 SECONDS (9.7-12.2) H 11/15/17 03:40 INR 1.5 11/15/17 03:40 APTT 33 SECONDS (21-34) 11/15/17 03:40 Attending/Attestation - Attestation I have personally seen and examined this patient.: Yes I have fully participated in the care of the patient.: Yes I have reviewed all pertinent clinical information, including history, physical exam and plan: Yes Notes (Text): Seen and examined by me .c/o left arm pain/cellulitis No fever,no leukocytosis 1.Fever follow blood cultures/Bacteremia-preliminary report,repeat blood culture done continue vancomycin 2.Chest pain-resolved 3.Left arm cellulites 4.Hypertension 5.CAD/TX/TIA 6.afib 7 spinal steonosis 8.COPD d/w resident and I agree with the documentation
[2017-11-16] MEDS: Rosuvastatin Calcium 2.5 mg Tab PO SCH (21:21)
[2017-11-17] MEDS: Vancomycin 1 gm/NS 200 ml 1 GM/200 ML BAG IVPB SCH ×2 (06:02→19:00)
[2017-11-17] MEDS: Fluticasone-Salmeterol 250-50mcg Diskus INH SCH (07:15)
[2017-11-17 07:32] LABS: BASO % 0.6 % (0.0-2.0); EOS # 0.3 K/uL (0.0-0.7); EOS % 4.5 % (0.0-4.0); HEMOGLOBIN 12.4 g/dL (12.0-18.0); LYMPH # 1.7 K/uL (1.0-4.3); LYMPH % 29.3 % (20.0-40.0); MEAN CELL VOLUME 89.2 fL (80.0-94.0); MEAN CORPUSCULAR HEMOGLOBIN 30.4 pg (27.0-31.0); MEAN CORPUSCULAR HGB CONC 34.1 g/dL (33.0-37.0); MEAN PLATELET VOLUME 7.9 fL (7.2-11.7); MONO % 16.5 % (0.0-10.0); NEUT # 2.9 K/uL (1.8-7.0); NEUT % 49.1 % (50.0-75.0); NRBC % 0.3 % (0.0-2.0); RBC 4.08 Mil/uL (4.40-5.90); RED CELL DISTRIBUTION WIDTH 14.3 % (11.5-14.5); WHITE BLOOD COUNT 5.9 K/uL (4.8-10.8)
[2017-11-17 07:36] LABS: ALB/GLOB RATIO 1.2 (1.0-2.1); ALBUMIN 3.8 g/dL (3.5-5.0); ALT/SGPT 35 U/L (21-72); AST/SGOT 30 U/L (17-59); BLOOD UREA NITROGEN 12 mg/dL (9-20); CALCIUM 9.4 mg/dl (8.6-10.4); GFR AFRICAN-AMERICAN > 60; GFR NON-AFRICAN AMERICAN > 60
[2017-11-17] MEDS: buPROPion 150 mg/24 Hours XL Tab PO SCH (09:23)
[2017-11-17] MEDS: Pantoprazole 40 mg EC Tab PO SCH (09:23)
[2017-11-17] MEDS: Morphine 15 mg SR Tab PO SCH ×2 (09:23→21:32)
[2017-11-17] MEDS: Albuterol-Ipratrop 3 mg / 0.5 (3 ml) UD INH PRN (12:00)
--- NOTE | 2017-11-17 17:00 | CP.PCM.PN ---
<Reddy Black - Last Filed: 11/17/17 20:31> Subjective - Date & Time of Evaluation Date of Evaluation: 11/17/17 Time of Evaluation: 17:00 - Subjective Subjective: PGY-[address] Moe service Patient is seen and examined at bedside. Patient states feeling better, and reports no acute events overnight. Patient complains of headache and neck pain. Patient says his legs feel week and he is having problems with his balance. Patient continues to sweat. as per patient, left forearm buldge is still the same and continue to be tender and warm. Patient denies fevers, chills, SOB, chest pain, backaches, nausea, vomiting, diarrhea or constipation. Objective - Vital Signs/Intake and Output Vital Signs (last 24 hours): Temp Pulse Resp BP Pulse Ox 98.0 F 73 20 102/67 95 11/17/17 15:08 11/17/17 15:08 11/17/17 15:08 11/17/17 15:08 11/17/17 15:08 Intake and Output: 11/17/17 11/17/17 06:59 18:59 Intake Total 600 Balance 600 - Medications Medications: Current Medications Acetaminophen (Tylenol 325mg Tab) 650 mg PO Q6 PRN PRN Reason: Fever >100.4 F Last Admin: 11/15/17 17:05 Dose: 650 mg Albuterol/Ipratropium (Duoneb 3 Mg/0.5 Mg (3 Ml) Ud) 3 ml INH RQ6 PRN PRN Reason: Wheezing Last Admin: 11/17/17 12:00 Dose: 3 ml Alprazolam (Xanax) 0.5 mg PO HS PRN PRN Reason: Anxiety Last Admin: 11/16/17 22:28 Dose: 0.5 mg Aspirin (Ecotrin) 81 mg PO DAILY [facility] Last Admin: 11/17/17 09:23 Dose: 81 mg Bupropion HCl (Wellbutrin Xl) 150 mg PO DAILY [facility] Last Admin: 11/17/17 09:23 Dose: 150 mg Digoxin (Digoxin) 0.125 mg PO DAILY@1800 [facility] Last Admin: 11/16/17 17:44 Dose: 0.125 mg Diltiazem HCl (Cardizem) 30 mg PO Q6 [facility] Last Admin: 11/17/17 12:44 Dose: 30 mg Docusate Sodium (Colace) 100 mg PO TID [facility] Last Admin: 11/17/17 14:16 Dose: Not Given Hydrochlorothiazide (Microzide) 12.5 mg PO DAILY [facility] Last Admin: 11/17/17 09:23 Dose: 12.5 mg Vancomycin/Sodium Chloride (Vancomycin 1 Gm/Ns 200 Ml) 1 gm in 200 mls @ 133 mls/hr IVPB Q12H [facility] PRN Reason: Protocol Stop: 11/20/17 19:01 Last Admin: 11/17/17 06:02 Dose: 133 mls/hr Metoprolol Tartrate (Lopressor) 25 mg PO Q12 [facility] Last Admin: 11/17/17 09:24 Dose: 25 mg Morphine Sulfate (Morphine Extended Release Tab) 15 mg PO Q12 [facility] Last Admin: 11/17/17 09:23 Dose: 15 mg Pantoprazole Sodium (Protonix Ec Tab) 40 mg PO DAILY [facility] Last Admin: 11/17/17 09:23 Dose: 40 mg Paroxetine HCl (Paxil) 40 mg PO DAILY [facility] Last Admin: 11/17/17 09:23 Dose: 40 mg Rivaroxaban (Xarelto) 20 mg PO DAILY [facility] Last Admin: 11/17/17 09:23 Dose: 20 mg Rosuvastatin Calcium (Crestor) 2.5 mg PO HS [facility] Last Admin: 11/16/17 21:21 Dose: 2.5 mg Fluticasone/Salmeterol (Advair Diskus 250/50) 1 puff INH RQ12 [facility] Last Admin: 11/17/17 07:15 Dose: 1 puff - Labs Labs: 11/17/17 06:57 11/17/17 06:57 PT 16.3 SECONDS (9.7-12.2) H 11/15/17 03:40 INR 1.5 11/15/17 03:40 APTT 33 SECONDS (21-34) 11/15/17 03:40 - Constitutional Appears: Well, Non-toxic, No Acute Distress - Head Exam Head Exam: ATRAUMATIC, NORMAL INSPECTION, NORMOCEPHALIC - Eye Exam Eye Exam: EOMI, Normal appearance - ENT Exam ENT Exam: Mucous Membranes Moist, Normal Exam - Neck Exam Neck Exam: Full ROM, Normal Inspection - Respiratory Exam Respiratory Exam: Wheezes, NORMAL BREATHING PATTERN Additional comments: upper lobe Expiratory wheezing bilaterally - Cardiovascular Exam Cardiovascular Exam: Irregular Rhythm. absent: Bradycardia, Tachycardia, Clicks , Gallop, Murmur - GI/Abdominal Exam GI & Abdominal Exam: Soft, Normal Bowel Sounds. absent: Tenderness - Extremities Exam Extremities Exam: Full ROM, Normal Inspection. absent: Joint Swelling, Pedal Edema, Tenderness Additional comments: Left arm cellulite, not warm, non erythematous, non purulent - Back Exam Back Exam: Full ROM, NORMAL INSPECTION - Neurological Exam Neurological Exam: Alert, Awake, CN II-XII Intact, Oriented x3 - Psychiatric Exam Psychiatric exam: Normal Affect, Normal Mood - Skin Skin Exam: Dry, Intact, Normal Color Assessment and Plan - Assessment and Plan (Free Text) Plan: Chest Pain r/o ACS - 11/17: Hr: 69, BP: 108/69. Vitals stable. Patient is asymptomatic at the time. -11/17: Echocardiogram ordered. F/U results -ECHO done 05/2017 showed normal LVEF. -Continue monitor vitals and symptoms - Reviewing medical records, as per Licensed [facility] - multiple stress tests done with no findings, last cardiac cath was 05/2017 with no obstructive coronaries noted, single vessel CAD. - ОЛЕГ negative x3 - EKG NSR @ 96 BPM - repeat EKG @ 7pm: normal sinus rhythm, normal HR Fever - temp 11/17: 97-98F, stable - 11/17 WBC: 5.9 from 8.0 - Blood cultures: gram positive cocci preliminary - Echo ordered to rule out endocarditis - Dr Parham ID specialist consulted - help is appreciated. F/U recs - Continue Vanco 1gm in 200ml IVPB Q12 -Tylenol 650 Q6 PRN for fevers greater 100.4 -F/U am labs tomorrow -continue monitoring temperature - Urine Culture: clean catch, no growth -Sputum culture: few epithelial cells, few WBC, moderate gram positive cocci in clusters Right distal forearm cellulite -not erythematous, not warm upon palpation -Patient denies IV drug use - 11/17 WBC: 5.9 - Continue Vanco 1gm in 200ml IVPB Q12, on day until 11/20 -keep monitoring am labs HTN - Continue Metoprolol 25mg BID, HCTZ 12.5mg daily -11/16 BP -->108/69 IGT - A1C 5.5 (09/2017) - Lipid panel WNL Hx CAD, Hx IN (07/2016) Hx TIAs - Continue ASA, Xarelto, Rosuvastatin Atrial Fibrillation - Continue Xarelto, Cardizem, Digoxin Spinal stenosis - continue monitoring COPD - Continue Advair and Duonebs as needed PTSD/ Anxiety/ Depression - Continue Bupropion XL 150mg daily, Paxil 40mg daily Prophylactic Measures - GI PPX: Protonix - DVT PPX: Xarelto 20mg daily, SCDs - HHD Plan discussed with Dr. Abhi Black, PGY-1 <Newton Moe - Last Filed: 11/18/17 16:52> Objective - Vital Signs/Intake and Output Vital Signs (last 24 hours): Temp Pulse Resp BP Pulse Ox 97.7 F 76 18 100/66 97 11/18/17 15:00 11/18/17 15:00 11/18/17 15:00 11/18/17 15:00 11/18/17 15:00 Intake and Output: 11/18/17 11/18/17 06:59 18:59 Intake Total 550 Balance 550 - Medications Medications: Current Medications Acetaminophen (Tylenol 325mg Tab) 650 mg PO Q6 PRN PRN Reason: Fever >100.4 F Last Admin: 11/15/17 17:05 Dose: 650 mg Albuterol/Ipratropium (Duoneb 3 Mg/0.5 Mg (3 Ml) Ud) 3 ml INH RQ6 PRN PRN Reason: Wheezing Last Admin: 11/17/17 12:00 Dose: 3 ml Alprazolam (Xanax) 0.5 mg PO HS PRN PRN Reason: Anxiety Last Admin: 11/17/17 22:38 Dose: 0.5 mg Aspirin (Ecotrin) 81 mg PO DAILY [facility] Last Admin: 11/18/17 10:31 Dose: 81 mg Bupropion HCl (Wellbutrin Xl) 150 mg PO DAILY [facility] Last Admin: 11/18/17 10:31 Dose: 150 mg Digoxin (Digoxin) 0.125 mg PO DAILY@1800 [facility] Last Admin: 11/17/17 17:15 Dose: 0.125 mg Diltiazem HCl (Cardizem) 30 mg PO Q6 [facility] Last Admin: 11/18/17 11:57 Dose: 30 mg Docusate Sodium (Colace) 100 mg PO TID [facility] Last Admin: 11/18/17 14:04 Dose: Not Given Hydrochlorothiazide (Microzide) 12.5 mg PO DAILY [facility] Last Admin: 11/18/17 10:38 Dose: 12.5 mg Vancomycin/Sodium Chloride (Vancomycin 1 Gm/Ns 200 Ml) 1 gm in 200 mls @ 133 mls/hr IVPB Q12H [facility] PRN Reason: Protocol Stop: 11/20/17 19:01 Last Admin: 11/18/17 06:20 Dose: 133 mls/hr Gentamicin Sulfate 80 mg/ (Sodium Chloride) 102 mls @ 100 mls/hr IVPB Q8H [facility] PRN Reason: Protocol Last Admin: 11/18/17 14:04 Dose: 100 mls/hr Lactated Ringer's (Lactated Ringer's) 1,000 mls @ 125 mls/hr IV .Q8H ONE Stop: 11/18/17 19:22 Last Admin: 11/18/17 11:57 Dose: 125 mls/hr Metoprolol Tartrate (Lopressor) 25 mg PO Q12 [facility] Last Admin: 11/18/17 10:38 Dose: 25 mg Morphine Sulfate (Morphine Extended Release Tab) 15 mg PO Q12 [facility] Last Admin: 11/18/17 10:38 Dose: 15 mg Pantoprazole Sodium (Protonix Ec Tab) 40 mg PO DAILY [facility] Last Admin: 11/18/17 10:31 Dose: 40 mg Paroxetine HCl (Paxil) 40 mg PO DAILY [facility] Last Admin: 11/18/17 10:30 Dose: 40 mg Rivaroxaban (Xarelto) 20 mg PO DAILY [facility] Last Admin: 11/18/17 10:31 Dose: 20 mg Rosuvastatin Calcium (Crestor) 2.5 mg PO HS [facility] Last Admin: 11/17/17 21:32 Dose: 2.5 mg Fluticasone/Salmeterol (Advair Diskus 250/50) 1 puff INH RQ12 [facility] Last Admin: 11/18/17 07:37 Dose: 1 puff - Labs Labs: 11/18/17 06:21 11/18/17 06:21 PT 16.3 SECONDS (9.7-12.2) H 11/15/17 03:40 INR 1.5 11/15/17 03:40 APTT 33 SECONDS (21-34) 11/15/17 03:40 Attending/Attestation - Attestation I have personally seen and examined this patient.: Yes I have fully participated in the care of the patient.: Yes I have reviewed all pertinent clinical information, including history, physical exam and plan: Yes Notes (Text): Seen and examined by me .c/o left arm pain/cellulitis No fever,no leukocytosis 1.Fever Bacteremia-strep/gram positive cocci continue vancomycin,genta added by DR Russell. follow repeat c/s echo to r/o infection 2.Chest pain-resolved 3.Left arm cellulites 4.Hypertension 5.CAD/IN/TIA 6.afib 7 spinal steonosis 8.COPD d/w resident and I agree with the documentation
[2017-11-17] MEDS: Digoxin 125 mcg (0.125 mg) Tab PO SCH (17:15)
[2017-11-17] MEDS: Rosuvastatin Calcium 2.5 mg Tab PO SCH (21:32)
[2017-11-18] MEDS: Vancomycin 1 gm/NS 200 ml 1 GM/200 ML BAG IVPB SCH ×2 (06:20→18:58)
[2017-11-18 06:31] LABS: BASO # 0.1 K/uL (0.0-0.2); BASO % 0.9 % (0.0-2.0); EOS # 0.3 K/uL (0.0-0.7); EOS % 5.6 % (0.0-4.0); HEMOGLOBIN 12.4 g/dL (12.0-18.0); LYMPH # 2.1 K/uL (1.0-4.3); LYMPH % 36.5 % (20.0-40.0); MEAN CELL VOLUME 88.7 fL (80.0-94.0); MEAN CORPUSCULAR HEMOGLOBIN 30.1 pg (27.0-31.0); MEAN CORPUSCULAR HGB CONC 33.9 g/dL (33.0-37.0); MEAN PLATELET VOLUME 7.9 fL (7.2-11.7); MONO # 0.8 K/uL (0.0-0.8); MONO % 13.5 % (0.0-10.0); NEUT # 2.5 K/uL (1.8-7.0); NEUT % 43.5 % (50.0-75.0); RBC 4.12 Mil/uL (4.40-5.90); RED CELL DISTRIBUTION WIDTH 14.3 % (11.5-14.5); WHITE BLOOD COUNT 5.7 K/uL (4.8-10.8)
[2017-11-18 06:53] LABS: ALB/GLOB RATIO 1.1 (1.0-2.1); ALBUMIN 3.5 g/dL (3.5-5.0); ALT/SGPT 37 U/L (21-72); AST/SGOT 30 U/L (17-59); BLOOD UREA NITROGEN 14 mg/dL (9-20); CALCIUM 9.2 mg/dl (8.6-10.4); GFR AFRICAN-AMERICAN > 60; GFR NON-AFRICAN AMERICAN > 60
--- NOTE | 2017-11-18 06:59 | CARD ---
APPROVED REPORT Date of service: 11/17/2017 EXAM: Two-dimensional and M-mode echocardiogram with Doppler and color Doppler. INDICATION Chest Pain r/o vegetation RISK FACTORS Hypertension 2D DIMENSIONS IVSd1.0 (0.7-1.1cm)LVDd4.3 (3.9-5.9cm) PWd0.9 (0.7-1.1cm)LVDs2.7 (2.5-4.0cm) FS (%) 35.9 %LVEF (%)65.8 (>50%) M-Mode DIMENSIONS Left Atrium (MM)3.94 (2.5-4.0cm)IVSd0.91 (0.7-1.1cm) Aortic Root3.53 (2.2-3.7cm)LVDd4.46 (4.0-5.6cm) Aortic Cusp Exc.2.25 (1.5-2.0cm)PWd0.87 (0.7-1.1cm) FS (%) 29 %LVDs3.19 (2.0-3.8cm) LVEF (%)60 (>50%) Mitral Valve MV E Tdjibfbl54.1cm/sE/A ratio0.0 TDI E/Lateral E'0.0E/Medial E'0.0 Tricuspid Valve TR Peak [id number]/sTR Peak [id number] LEFT VENTRICLE The left ventricle is normal size. There is normal left ventricular wall thickness. Left ventricle systolic function is normal. The Ejection Fraction is 65-70%. There is normal LV segmental wall motion. The left ventricular diastolic function is normal. RIGHT VENTRICLE The right ventricle is normal size. There is normal right ventricular wall thickness. The right ventricular systolic function is normal. ATRIA The left atrium size is normal. The right atrium size is normal. The interatrial septum is intact with no evidence for an atrial septal defect. AORTIC VALVE The aortic valve is normal in structure. No aortic regurgitation is present. There is no aortic valvular stenosis. There is no aortic valvular vegetation. MITRAL VALVE The mitral valve is normal in structure. There is no evidence of mitral valve prolapse. There is no mitral valve stenosis. Mitral regurgitation is mild. TRICUSPID VALVE The tricuspid valve is normal in structure. There is mild tricuspid regurgitation. Right ventricular systolic pressure is estimated at less than 30 mmHg. There is no pulmonary hypertension. PULMONIC VALVE The pulmonic valve is not well visualized. There is mild pulmonic valvular regurgitation. GREAT VESSELS The aortic root is normal in size. PERICARDIAL EFFUSION There is no significant pericardial effusion. <Conclusion> Left ventricle systolic function is normal. The Ejection Fraction is 65-70%. No aortic regurgitation is present. Mitral regurgitation is mild. There is mild tricuspid regurgitation. There is no pulmonary hypertension. There is mild pulmonic valvular regurgitation.
[2017-11-18] MEDS: Fluticasone-Salmeterol 250-50mcg Diskus INH SCH ×2 (07:37→19:04)
--- NOTE | 2017-11-18 08:12 | CON ---
DATE: 11/17/2017 INFECTIOUS DISEASE CONSULT REQUESTED BY: Addy Moe MD HISTORY OF PRESENT ILLNESS: This patient is a 62-year-old male. He has history of hypertension, coronary artery disease, and he also has history of a PR in 07/2016, history of two TIAs. He has also had osteomyelitis of the back. He says he had positive cultures. At that time, he says he stayed in [facility], 3-1/2 months. He has history of carotid artery disease, COPD, kidney stones. He has an untreated hepatitis C. He came in with sudden onset of chest pain while he was sleeping, and he also noted tingling and numbness which made him come over to the hospital. He admits to be feeling feverish, denied any diaphoresis, shortness of breath or syncope. He does say to me that he was in the doctor's office, and they tried to draw blood, one time on the right side and the other time on the left arm and those are hurting, and he has thrombophlebitis as I can see thickened clots on both arms at this time and may order Dopplers for that as he is little tender. He says yesterday, it was worse. He says that they noted that he has fever, and thus, they planned to do blood cultures and those blood cultures are positive for GPCs at this time. He also has had cardiac cath in 05/2017, which showed normal ejection fraction. PAST MEDICAL HISTORY: Atrial fibrillation, coronary artery disease, PR, TIAs x2, osteomyelitis of the back, COPD, GERD, panic disorder, anxiety disorder, PTSD, recent right rotator cuff tear that required surgery, and longstanding cervical spinal stenosis, status post fall from a tree branch while at work in 1999. SURGICAL HISTORY: Left knee patellar surgery. He also had two hernia repairs in 1989. MEDICATIONS: He uses albuterol, Advair, omeprazole, aspirin, Cardizem, digoxin, Xarelto, hydrochlorothiazide, metoprolol, simvastatin, Xanax, Paxil, bupropion, Vicoprofen, and MS Contin ER. ALLERGIES: HE IS ALLERGIC TO ULTRAM, KETOROLAC HE SAYS. HE WAS TELLING ME ULTRAM, BUT IT IS TORADOL. SOCIAL HISTORY: He has 30-pack years of smoking, quit two years ago when he had a heart attack. Denies any drug or alcohol abuse. FAMILY HISTORY: His mother of CHF. Father is still alive. Brother of CVA. Another brother of PR, so he has PR, stroke, and CVAs common in these, and his son of Hirschsprung disease during infancy. He follows with Dr. Jenny Garrett and Dr. Charles Malcolm. Past medical history is all as above. PHYSICAL EXAMINATION: VITAL SIGNS: T-max is 98, pulse 73, blood pressure 122/67, and respirations are 20. HEENT: He also says he is brining out greenish sputum. Head is atraumatic, normocephalic. Pupils are reacting to light. Eye movements are unremarkable. He uses glasses. Tongue is moist. NECK: Supple. JVP is flat. LUNGS: Clear. No crackles or rales present. Decreased breath sounds bilaterally. No fevers. Having occasional wheeze when I saw him, but he had no stridor, no rhonchi. ABDOMEN: Soft, nontender. No guarding, no rigidity present. EXTREMITIES: Have no edema, clubbing, or cyanosis at this time. He did have some thickening in the cubital fossa, as he says they manipulated to draw blood and also in his left forearm. He has noted area and some redness noted with thickened phlebitis. LABORATORY DATA: White count is 5.9, hemoglobin 12.4, hematocrit 36.3, platelet count is 172. BUN is 12, creatinine 0.8. Labs are not that bad, but UA is negative. His vancomycin trough was 15.9. We will continue, and he was started on vancomycin and he is on albuterol and he is on Lopressor, paroxetine, Xarelto, Crestor, Advair. He is getting vancomycin 1 gm every 12 hours, and he is on Advair, Crestor, Xarelto, Paxil, Protonix, morphine, Lopressor, hydrochlorothiazide, Colace, Cardizem, Wellbutrin, Xanax, Ecotrin, DuoNeb, and Tylenol. His blood culture, there were four sets done yesterday, looks like, and two sets are positive. Urine culture is negative. Sputum is normal raven. Chest CT was done, and chest CT shows rounded opacity of described on recent chest radiograph corresponded to costochondral junction opacity visualized, and no pulmonary nodule, mass, or consolidation, and no other the apex. ASSESSMENT: So my impression is, since he gives me history of having blood drawn in the doctor's office and they manipulated to draw the blood, and he had redness and cellulitis, and he has some phlebitis on both upper extremities. This is what is causing bacteremia at this time. We will add gentamicin for now and also add an echocardiogram. He does have history of osteomyelitis in the past, but that was two years back. Hopefully, it is not the same bacteria and it is related to infection at this time. He was having high-grade fever, probably that put him to have a chest pain, but I cannot explain the numbness in the hands. He does have lot of surgeries before on his back. Neurological problems, spinal stenosis. May need a neurology evaluation. Faisal Russell MD
[2017-11-18] MEDS: buPROPion 150 mg/24 Hours XL Tab PO SCH (10:31)
[2017-11-18] MEDS: Pantoprazole 40 mg EC Tab PO SCH (10:31)
[2017-11-18] MEDS: Morphine 15 mg SR Tab PO SCH ×2 (10:38→21:42)
[2017-11-18] MEDS ORDERED: Lactated Ringer's 1,000 ML IV ONE (11:23)
[2017-11-18] MEDS ORDERED: Iodixanol 320 mg/ml 150 ml Bottle IV ONE (12:20)
--- NOTE | 2017-11-18 14:58 | CT ---
Date of service: 11/18/2017 PROCEDURE: CT HEAD WITH AND WITHOUT CONTRAST HISTORY: Bacteremia ,headache,r/o brain abscess/infection COMPARISON: 02/21/2017 TECHNIQUE: Axial computed tomography images were obtained through the head/brain with and without intravenous contrast enhancement. Contrast dose: 100 mL Visipaque 320 Radiation dose: Total exam DLP = 1625.08 mGy-cm. This CT exam was performed using one or more of the following dose reduction techniques: Automated exposure control, adjustment of the mA and/or kV according to patient size, and/or use of iterative reconstruction technique. FINDINGS: HEMORRHAGE: No intracranial hemorrhage. BRAIN: No mass, mass effect or edema. No abnormal intracranial enhancement. No significant atrophy. Mild patchy periventricular and deep white matter lucency consistent with chronic microvascular ischemic change. Consistent with patient age. VENTRICLES: Unremarkable. No hydrocephalus. CALVARIUM: Unremarkable. SINUSES: Small sphenoid retention cyst/polyp MASTOID AIR CELLS: Unremarkable as visualized. No mastoid effusion. OTHER FINDINGS: None. IMPRESSION: No evidence of intracranial abscess. Mild chronic white matter ischemic change. Otherwise unremarkable examination. This
--- NOTE | 2017-11-18 15:06 | CP.PCM.PN ---
<SurySamiraAni Vinay - Last Filed: 11/18/17 21:51> Subjective - Date & Time of Evaluation Date of Evaluation: 11/18/17 Time of Evaluation: 14:53 - Subjective Subjective: PGY-1 Medicine Progress Note for hospitalist Dr. Moe Patient was seen and examined today at bedside in no acute distress walking back from the restroom. Nurse reports no overnight events. Patient reports no new problems overnight. States his "migraine" headache is unchanged. Denies chest pain, shortness of breath, abdominal pain, nausea, vomiting, constipation , diarrhea. Objective - Vital Signs/Intake and Output Vital Signs (last 24 hours): Temp Pulse Resp BP Pulse Ox 97.7 F 66 20 100/69 97 11/17/17 23:55 11/18/17 12:08 11/18/17 11:58 11/18/17 11:58 11/18/17 11:58 Intake and Output: 11/18/17 11/18/17 06:59 18:59 Intake Total 550 Balance 550 - Medications Medications: Current Medications Acetaminophen (Tylenol 325mg Tab) 650 mg PO Q6 PRN PRN Reason: Fever >100.4 F Last Admin: 11/15/17 17:05 Dose: 650 mg Albuterol/Ipratropium (Duoneb 3 Mg/0.5 Mg (3 Ml) Ud) 3 ml INH RQ6 PRN PRN Reason: Wheezing Last Admin: 11/17/17 12:00 Dose: 3 ml Alprazolam (Xanax) 0.5 mg PO HS PRN PRN Reason: Anxiety Last Admin: 11/17/17 22:38 Dose: 0.5 mg Aspirin (Ecotrin) 81 mg PO DAILY [facility] Last Admin: 11/18/17 10:31 Dose: 81 mg Bupropion HCl (Wellbutrin Xl) 150 mg PO DAILY [facility] Last Admin: 11/18/17 10:31 Dose: 150 mg Digoxin (Digoxin) 0.125 mg PO DAILY@1800 [facility] Last Admin: 11/17/17 17:15 Dose: 0.125 mg Diltiazem HCl (Cardizem) 30 mg PO Q6 [facility] Last Admin: 11/18/17 11:57 Dose: 30 mg Docusate Sodium (Colace) 100 mg PO TID [facility] Last Admin: 11/18/17 14:04 Dose: Not Given Hydrochlorothiazide (Microzide) 12.5 mg PO DAILY [facility] Last Admin: 11/18/17 10:38 Dose: 12.5 mg Vancomycin/Sodium Chloride (Vancomycin 1 Gm/Ns 200 Ml) 1 gm in 200 mls @ 133 mls/hr IVPB Q12H [facility] PRN Reason: Protocol Stop: 11/20/17 19:01 Last Admin: 11/18/17 06:20 Dose: 133 mls/hr Gentamicin Sulfate 80 mg/ (Sodium Chloride) 102 mls @ 100 mls/hr IVPB Q8H [facility] PRN Reason: Protocol Last Admin: 11/18/17 14:04 Dose: 100 mls/hr Lactated Ringer's (Lactated Ringer's) 1,000 mls @ 125 mls/hr IV .Q8H ONE Stop: 11/18/17 19:22 Last Admin: 11/18/17 11:57 Dose: 125 mls/hr Metoprolol Tartrate (Lopressor) 25 mg PO Q12 [facility] Last Admin: 11/18/17 10:38 Dose: 25 mg Morphine Sulfate (Morphine Extended Release Tab) 15 mg PO Q12 [facility] Last Admin: 11/18/17 10:38 Dose: 15 mg Pantoprazole Sodium (Protonix Ec Tab) 40 mg PO DAILY [facility] Last Admin: 11/18/17 10:31 Dose: 40 mg Paroxetine HCl (Paxil) 40 mg PO DAILY [facility] Last Admin: 11/18/17 10:30 Dose: 40 mg Rivaroxaban (Xarelto) 20 mg PO DAILY [facility] Last Admin: 11/18/17 10:31 Dose: 20 mg Rosuvastatin Calcium (Crestor) 2.5 mg PO HS [facility] Last Admin: 11/17/17 21:32 Dose: 2.5 mg Fluticasone/Salmeterol (Advair Diskus 250/50) 1 puff INH RQ12 [facility] Last Admin: 11/18/17 07:37 Dose: 1 puff - Labs Labs: 11/18/17 06:21 11/18/17 06:21 PT 16.3 SECONDS (9.7-12.2) H 11/15/17 03:40 INR 1.5 11/15/17 03:40 APTT 33 SECONDS (21-34) 11/15/17 03:40 - Constitutional Appears: Well, Non-toxic, No Acute Distress - Head Exam Head Exam: ATRAUMATIC, NORMOCEPHALIC - Eye Exam Eye Exam: EOMI, Normal appearance, PERRL Additional comments: glasses - ENT Exam ENT Exam: Mucous Membranes Moist, Normal Exam - Respiratory Exam Respiratory Exam: Clear to Ausculation Bilateral, NORMAL BREATHING PATTERN. absent: Rales, Rhonchi, Wheezes - Cardiovascular Exam Cardiovascular Exam: REGULAR RHYTHM, +S1, +S2. absent: Gallop, Rubs, Murmur - GI/Abdominal Exam GI & Abdominal Exam: Soft, Normal Bowel Sounds. absent: Tenderness - Extremities Exam Additional comments: peripheral pulses present bilaterally 3+ (radial, DP) IV left arm, flushing well numbness and tingling non-reproducible on exam down left arm. left arm is warm, not hot. non erythematous, nonpurulent. - Neurological Exam Neurological Exam: Alert, Awake, CN II-XII Intact, Normal Gait, Oriented x3 - Psychiatric Exam Psychiatric exam: Normal Affect, Normal Mood - Skin Skin Exam: Dry, Intact, Normal Color, Warm Assessment and Plan - Assessment and Plan (Free Text) Plan: Chest Pain r/o ACS - Vitals stable. Patient is asymptomatic at the time. - Echocardiogram (11/17) LVEF 65-70%. LV systolic function is normal, mild mitral regurgitation, mild tricuspid regurg, mild pulm valvular regurg - ECHO done 05/2017 showed normal LVEF. - Continue monitor vitals and symptoms - Reviewing medical records, as per Medical Social Worker - multiple stress tests done with no findings, last cardiac cath was 05/2017 with no obstructive coronaries noted, single vessel CAD. - ОЛЕГ negative x3 - EKG NSR @ 96 BPM - repeat EKG @ 7pm: normal sinus rhythm, normal HR Fever - Tmax overnight 97.7, stable - WBC trending down: 5.7, 5.9, 8.0. stable - Blood cultures: gram positive cocci preliminary - Blood culture (11/15): Strep constellatus/milleri - CT Head to r/o abscess (known assoc with Strep constellatus/milleri) (11/18) no evidence of intracranial abscess. Mild chronic white matter ischemic change - Echo showed no vegetations - Dr Parham ID specialist consulted - help is appreciated. F/U recs - Continue Vanco 1gm in 200ml IVPB Q12 - Tylenol 650 Q6 PRN for fevers greater 100.4 - F/U am labs tomorrow - continue monitoring temperature - Urine Culture: clean catch, no growth - Sputum culture: few epithelial cells, few WBC, moderate gram positive cocci in clusters Right distal forearm cellulite -not erythematous, not warm upon palpation -Patient denies IV drug use - 11/18 WBC: 5.7 - Continue Vanco 1gm in 200ml IVPB Q12, on day until 11/20 -keep monitoring am labs HTN - Continue Metoprolol 25mg BID, HCTZ 12.5mg daily - BP stable IGT - A1C 5.5 (09/2017) - Lipid panel WNL Hx CAD, Hx [place] (07/2016) Hx TIAs - Continue ASA, Xarelto, Rosuvastatin Atrial Fibrillation - Continue Xarelto, Cardizem, Digoxin Spinal stenosis - continue monitoring COPD - Continue Advair and Duonebs as needed PTSD/ Anxiety/ Depression - Continue Bupropion XL 150mg daily, Paxil 40mg daily Prophylactic Measures - GI PPX: Protonix - DVT PPX: Xarelto 20mg daily, SCDs - HHD - Dispo: PT consulted for possible cane on discharge Plan discussed with Dr. Abhi Ga PGY-1 <Newton Moe - Last Filed: 11/19/17 11:38> Objective - Vital Signs/Intake and Output Vital Signs (last 24 hours): Temp Pulse Resp BP Pulse Ox 97.7 F 74 18 104/68 100 11/19/17 07:00 11/19/17 07:00 11/19/17 07:00 11/19/17 09:25 11/19/17 07:00 Intake and Output: 11/19/17 11/19/17 06:59 18:59 Intake Total 1835 Output Total 350 Balance 1485 - Medications Medications: Current Medications Acetaminophen (Tylenol 325mg Tab) 650 mg PO Q6 PRN PRN Reason: Fever >100.4 F Last Admin: 11/15/17 17:05 Dose: 650 mg Albuterol/Ipratropium (Duoneb 3 Mg/0.5 Mg (3 Ml) Ud) 3 ml INH RQ6 PRN PRN Reason: Wheezing Last Admin: 11/19/17 07:28 Dose: 3 ml Alprazolam (Xanax) 0.5 mg PO HS PRN PRN Reason: Anxiety Last Admin: 11/18/17 22:51 Dose: 0.5 mg Aspirin (Ecotrin) 81 mg PO DAILY [facility] Last Admin: 11/19/17 09:24 Dose: 81 mg Bupropion HCl (Wellbutrin Xl) 150 mg PO DAILY [facility] Last Admin: 11/19/17 09:25 Dose: 150 mg Digoxin (Digoxin) 0.125 mg PO DAILY@1800 [facility] Last Admin: 11/18/17 18:58 Dose: 0.125 mg Diltiazem HCl (Cardizem) 30 mg PO Q6 [facility] Docusate Sodium (Colace) 100 mg PO TID [facility] Last Admin: 11/19/17 09:24 Dose: 100 mg Gentamicin Sulfate 80 mg/ (Sodium Chloride) 102 mls @ 100 mls/hr IVPB Q8H [facility] PRN Reason: Protocol Last Admin: 11/19/17 05:48 Dose: 100 mls/hr Piperacillin Sod/Tazobactam Sod (Zosyn 2.25 Gm Iv Premix) 2.25 gm in 50 mls @ 100 mls/hr IVPB Q6H [facility] PRN Reason: Protocol Last Admin: 11/19/17 09:22 Dose: 100 mls/hr Metoprolol Tartrate (Lopressor) 25 mg PO Q12 [facility] Last Admin: 11/19/17 09:25 Dose: 25 mg Morphine Sulfate (Morphine Extended Release Tab) 15 mg PO Q12 [facility] Pantoprazole Sodium (Protonix Ec Tab) 40 mg PO DAILY [facility] Last Admin: 11/19/17 09:24 Dose: 40 mg Paroxetine HCl (Paxil) 40 mg PO DAILY [facility] Last Admin: 11/19/17 09:24 Dose: 40 mg Rivaroxaban (Xarelto) 20 mg PO DAILY [facility] Last Admin: 11/19/17 09:24 Dose: 20 mg Rosuvastatin Calcium (Crestor) 2.5 mg PO HS [facility] Last Admin: 11/18/17 21:43 Dose: 2.5 mg Fluticasone/Salmeterol (Advair Diskus 250/50) 1 puff INH RQ12 [facility] Last Admin: 11/19/17 07:28 Dose: 1 puff - Labs Labs: 11/19/17 07:36 11/19/17 07:36 PT 16.3 SECONDS (9.7-12.2) H 11/15/17 03:40 INR 1.5 11/15/17 03:40 APTT 33 SECONDS (21-34) 11/15/17 03:40 Attending/Attestation - Attestation I have personally seen and examined this patient.: Yes I have fully participated in the care of the patient.: Yes I have reviewed all pertinent clinical information, including history, physical exam and plan: Yes Notes (Text): Seen and examined by me .Strep constellatus/milleri bacteremia Repeat blood culture today continue antibiotics as per ID Brain scan negative for infection I agree with the resident's assessment and the plan
[2017-11-18] MEDS: Digoxin 125 mcg (0.125 mg) Tab PO SCH (18:58)
--- NOTE | 2017-11-18 20:08 | CP.PCM.PN ---
Subjective - Date & Time of Evaluation Date of Evaluation: 11/18/17 Time of Evaluation: 02:00 - Subjective Subjective: Dictated Objective - Vital Signs/Intake and Output Vital Signs (last 24 hours): Temp Pulse Resp BP Pulse Ox 97.7 F 93 H 18 100/66 97 11/18/17 15:00 11/18/17 16:00 11/18/17 15:00 11/18/17 15:00 11/18/17 15:00 - Medications Medications: Current Medications Acetaminophen (Tylenol 325mg Tab) 650 mg PO Q6 PRN PRN Reason: Fever >100.4 F Last Admin: 11/15/17 17:05 Dose: 650 mg Albuterol/Ipratropium (Duoneb 3 Mg/0.5 Mg (3 Ml) Ud) 3 ml INH RQ6 PRN PRN Reason: Wheezing Last Admin: 11/17/17 12:00 Dose: 3 ml Alprazolam (Xanax) 0.5 mg PO HS PRN PRN Reason: Anxiety Last Admin: 11/17/17 22:38 Dose: 0.5 mg Aspirin (Ecotrin) 81 mg PO DAILY [facility] Last Admin: 11/18/17 10:31 Dose: 81 mg Bupropion HCl (Wellbutrin Xl) 150 mg PO DAILY [facility] Last Admin: 11/18/17 10:31 Dose: 150 mg Digoxin (Digoxin) 0.125 mg PO DAILY@1800 [facility] Last Admin: 11/18/17 18:58 Dose: 0.125 mg Diltiazem HCl (Cardizem) 30 mg PO Q6 [facility] Last Admin: 11/18/17 18:58 Dose: 30 mg Docusate Sodium (Colace) 100 mg PO TID [facility] Last Admin: 11/18/17 18:58 Dose: 100 mg Hydrochlorothiazide (Microzide) 12.5 mg PO DAILY [facility] Last Admin: 11/18/17 10:38 Dose: 12.5 mg Vancomycin/Sodium Chloride (Vancomycin 1 Gm/Ns 200 Ml) 1 gm in 200 mls @ 133 mls/hr IVPB Q12H [facility] PRN Reason: Protocol Stop: 11/20/17 19:01 Last Admin: 11/18/17 18:58 Dose: 133 mls/hr Gentamicin Sulfate 80 mg/ (Sodium Chloride) 102 mls @ 100 mls/hr IVPB Q8H [facility] PRN Reason: Protocol Last Admin: 11/18/17 14:04 Dose: 100 mls/hr Metoprolol Tartrate (Lopressor) 25 mg PO Q12 [facility] Last Admin: 11/18/17 10:38 Dose: 25 mg Morphine Sulfate (Morphine Extended Release Tab) 15 mg PO Q12 [facility] Last Admin: 11/18/17 10:38 Dose: 15 mg Pantoprazole Sodium (Protonix Ec Tab) 40 mg PO DAILY [facility] Last Admin: 11/18/17 10:31 Dose: 40 mg Paroxetine HCl (Paxil) 40 mg PO DAILY [facility] Last Admin: 11/18/17 10:30 Dose: 40 mg Rivaroxaban (Xarelto) 20 mg PO DAILY [facility] Last Admin: 11/18/17 10:31 Dose: 20 mg Rosuvastatin Calcium (Crestor) 2.5 mg PO HS [facility] Last Admin: 11/17/17 21:32 Dose: 2.5 mg Fluticasone/Salmeterol (Advair Diskus 250/50) 1 puff INH RQ12 [facility] Last Admin: 11/18/17 19:04 Dose: 1 puff - Labs Labs: 11/18/17 06:21 11/18/17 06:21 PT 16.3 SECONDS (9.7-12.2) H 11/15/17 03:40 INR 1.5 11/15/17 03:40 APTT 33 SECONDS (21-34) 11/15/17 03:40
[2017-11-18] MEDS: Piperacill/Tazo 2.25gm in Dex 2.25 GM/50 ML BAG IVPB SCH (21:41)
[2017-11-18] MEDS: Rosuvastatin Calcium 2.5 mg Tab PO SCH (21:43)
[2017-11-19] MEDS: Piperacill/Tazo 2.25gm in Dex 2.25 GM/50 ML BAG IVPB SCH ×3 (02:46→14:48)
--- NOTE | 2017-11-19 07:27 | CP.PCM.PN ---
<Jose Horton S - Last Filed: 11/19/17 10:33> Subjective - Date & Time of Evaluation Date of Evaluation: 11/19/17 Time of Evaluation: 07:27 - Subjective Subjective: Medicine Progress Note for hospitalist Dr. Moe Patient was seen and examined today at bedside. He states that he continues to feel some pain at the site of venupuncture on life left forearm. A CT head was done for him yesterday and no acute pathologies were identified. He has been afebrile overnight. His cardizem was held overnight because he was not tachycardic. No other events were reported. Objective - Vital Signs/Intake and Output Vital Signs (last 24 hours): Temp Pulse Resp BP Pulse Ox 97.7 F 59 L 20 97/60 L 97 11/18/17 23:50 11/19/17 01:00 11/18/17 23:50 11/19/17 04:05 11/18/17 23:50 Intake and Output: 11/19/17 11/19/17 06:59 18:59 Intake Total 1835 Output Total 350 Balance 1485 - Medications Medications: Current Medications Acetaminophen (Tylenol 325mg Tab) 650 mg PO Q6 PRN PRN Reason: Fever >100.4 F Last Admin: 11/15/17 17:05 Dose: 650 mg Albuterol/Ipratropium (Duoneb 3 Mg/0.5 Mg (3 Ml) Ud) 3 ml INH RQ6 PRN PRN Reason: Wheezing Last Admin: 11/17/17 12:00 Dose: 3 ml Alprazolam (Xanax) 0.5 mg PO HS PRN PRN Reason: Anxiety Last Admin: 11/18/17 22:51 Dose: 0.5 mg Aspirin (Ecotrin) 81 mg PO DAILY [facility] Last Admin: 11/18/17 10:31 Dose: 81 mg Bupropion HCl (Wellbutrin Xl) 150 mg PO DAILY [facility] Last Admin: 11/18/17 10:31 Dose: 150 mg Digoxin (Digoxin) 0.125 mg PO DAILY@1800 [facility] Last Admin: 11/18/17 18:58 Dose: 0.125 mg Diltiazem HCl (Cardizem) 30 mg PO Q6 [facility] Last Admin: 11/19/17 05:50 Dose: Not Given Docusate Sodium (Colace) 100 mg PO TID [facility] Last Admin: 11/18/17 18:58 Dose: 100 mg Gentamicin Sulfate 80 mg/ (Sodium Chloride) 102 mls @ 100 mls/hr IVPB Q8H [facility] PRN Reason: Protocol Last Admin: 11/19/17 05:48 Dose: 100 mls/hr Piperacillin Sod/Tazobactam Sod (Zosyn 2.25 Gm Iv Premix) 2.25 gm in 50 mls @ 100 mls/hr IVPB Q6H [facility] PRN Reason: Protocol Last Admin: 11/19/17 02:46 Dose: 100 mls/hr Metoprolol Tartrate (Lopressor) 25 mg PO Q12 [facility] Last Admin: 11/18/17 22:58 Dose: 25 mg Morphine Sulfate (Morphine Extended Release Tab) 15 mg PO Q12 [facility] Last Admin: 11/18/17 21:42 Dose: 15 mg Pantoprazole Sodium (Protonix Ec Tab) 40 mg PO DAILY [facility] Last Admin: 11/18/17 10:31 Dose: 40 mg Paroxetine HCl (Paxil) 40 mg PO DAILY [facility] Last Admin: 11/18/17 10:30 Dose: 40 mg Rivaroxaban (Xarelto) 20 mg PO DAILY [facility] Last Admin: 11/18/17 10:31 Dose: 20 mg Rosuvastatin Calcium (Crestor) 2.5 mg PO HS [facility] Last Admin: 11/18/17 21:43 Dose: 2.5 mg Fluticasone/Salmeterol (Advair Diskus 250/50) 1 puff INH RQ12 [facility] Last Admin: 11/18/17 19:04 Dose: 1 puff - Labs Labs: 11/18/17 06:21 11/18/17 06:21 PT 16.3 SECONDS (9.7-12.2) H 11/15/17 03:40 INR 1.5 11/15/17 03:40 APTT 33 SECONDS (21-34) 11/15/17 03:40 - Constitutional Appears: No Acute Distress - Head Exam Head Exam: ATRAUMATIC, NORMOCEPHALIC - Eye Exam Eye Exam: EOMI, Normal appearance - ENT Exam ENT Exam: Mucous Membranes Moist - Respiratory Exam Respiratory Exam: Clear to Ausculation Bilateral, NORMAL BREATHING PATTERN - Cardiovascular Exam Cardiovascular Exam: REGULAR RHYTHM, +S1, +S2 - GI/Abdominal Exam GI & Abdominal Exam: Soft. absent: Guarding, Tenderness - Extremities Exam Additional comments: left arm has a small palpable hematoma at the location where he had venupuncture. No signs of infection- no erythema, warmth to touch or open skin. - Neurological Exam Neurological Exam: Alert, Awake, Oriented x3 - Psychiatric Exam Psychiatric exam: Normal Affect, Normal Mood - Skin Skin Exam: Dry, Intact, Warm Assessment and Plan - Assessment and Plan (Free Text) Plan: Chest Pain with negative cardio-pulmonary workup - Vitals stable. Patient is remains asymptomatic at the time. - Echocardiogram (11/17) LVEF 65-70%. LV systolic function is normal, mild mitral regurgitation, mild tricuspid regurg, mild pulm valvular regurg - ECHO done 05/2017 showed normal LVEF. - Continue monitor vitals and symptoms - Reviewing medical records, as per Health Care Coach - multiple stress tests done with no findings, last cardiac cath was 05/2017 with no obstructive coronaries noted, single vessel CAD. - ОЛЕГ negative x3 - EKG NSR @ 96 BPM - repeat EKG @ 7pm: normal sinus rhythm, normal HR Bacteremia- Strep Constellatus/milleri - Afebrile overnight, stable - WBC trending down, 4.5 today - Blood cultures: gram positive cocci preliminary- follow up final results - Blood culture (11/15): Strep constellatus/milleri - CT Head to r/o abscess (known assoc with Strep constellatus/milleri) (11/18) no evidence of intracranial abscess. Mild chronic white matter ischemic change - Echo showed no vegetations - Dr Parham ID specialist consulted - help is appreciated. F/U recs -Vanco 1gm in 200ml IVPB Q12- discontinued 11/18/17 -Zosyn 2.25g IV q6hrs- started 11/18/17 -Gentamycin 80mg IV q8hrs- started 11/17/17 - Tylenol 650mg Q6 PRN for fevers greater 100.4 - F/U am labs - continue monitoring temperature - Urine Culture: clean catch, no growth - Sputum culture: few epithelial cells, few WBC, moderate gram positive cocci in clusters - The source of this patients bacteremia remains undetermined Right distal forearm cellulite -not erythematous, not warm upon palpation -Patient denies IV drug use - WBC: 4.5 - Zosyn/gentamycin as described above - keep monitoring am labs HTN - Continue Metoprolol 25mg BID, HCTZ 12.5mg daily - BP stable IGT - A1C 5.5 (09/2017) - Lipid panel WNL Hx CAD, Hx [place] (07/2016) Hx TIAs - Continue ASA 81mg PO daily, Xarelto 20mg PO daily, Rosuvastatin 2.5mg PO daily Atrial Fibrillation - Continue Xarelto 20mg PO daily, Cardizem 30mg PO q6hrs, Digoxin 0.125mg PO daily Spinal stenosis - No intervention at this time - pain control prin COPD - Continue Advair 250/50 1puff inh q12hrs, Duonebs as needed PTSD/ Anxiety/ Depression - Continue Bupropion XL 150mg daily, Paxil 40mg daily Prophylactic Measures - GI PPX: Protonix 40mg PO daily - DVT PPX: Xarelto 20mg daily, SCDs - HHD - Dispo: PT consulted for possible cane on discharge Plan discussed with Dr. Abhi Horton D.O. <Newton Moe - Last Filed: 11/19/17 11:34> Objective - Vital Signs/Intake and Output Vital Signs (last 24 hours): Temp Pulse Resp BP Pulse Ox 97.7 F 74 18 104/68 100 11/19/17 07:00 11/19/17 07:00 11/19/17 07:00 11/19/17 09:25 11/19/17 07:00 Intake and Output: 11/19/17 11/19/17 06:59 18:59 Intake Total 1835 Output Total 350 Balance 1485 - Medications Medications: Current Medications Acetaminophen (Tylenol 325mg Tab) 650 mg PO Q6 PRN PRN Reason: Fever >100.4 F Last Admin: 11/15/17 17:05 Dose: 650 mg Albuterol/Ipratropium (Duoneb 3 Mg/0.5 Mg (3 Ml) Ud) 3 ml INH RQ6 PRN PRN Reason: Wheezing Last Admin: 11/19/17 07:28 Dose: 3 ml Alprazolam (Xanax) 0.5 mg PO HS PRN PRN Reason: Anxiety Last Admin: 11/18/17 22:51 Dose: 0.5 mg Aspirin (Ecotrin) 81 mg PO DAILY [facility] Last Admin: 11/19/17 09:24 Dose: 81 mg Bupropion HCl (Wellbutrin Xl) 150 mg PO DAILY [facility] Last Admin: 11/19/17 09:25 Dose: 150 mg Digoxin (Digoxin) 0.125 mg PO DAILY@1800 [facility] Last Admin: 11/18/17 18:58 Dose: 0.125 mg Diltiazem HCl (Cardizem) 30 mg PO Q6 [facility] Docusate Sodium (Colace) 100 mg PO TID [facility] Last Admin: 11/19/17 09:24 Dose: 100 mg Gentamicin Sulfate 80 mg/ (Sodium Chloride) 102 mls @ 100 mls/hr IVPB Q8H [facility] PRN Reason: Protocol Last Admin: 11/19/17 05:48 Dose: 100 mls/hr Piperacillin Sod/Tazobactam Sod (Zosyn 2.25 Gm Iv Premix) 2.25 gm in 50 mls @ 100 mls/hr IVPB Q6H [facility] PRN Reason: Protocol Last Admin: 11/19/17 09:22 Dose: 100 mls/hr Metoprolol Tartrate (Lopressor) 25 mg PO Q12 [facility] Last Admin: 11/19/17 09:25 Dose: 25 mg Morphine Sulfate (Morphine Extended Release Tab) 15 mg PO Q12 [facility] Pantoprazole Sodium (Protonix Ec Tab) 40 mg PO DAILY [facility] Last Admin: 11/19/17 09:24 Dose: 40 mg Paroxetine HCl (Paxil) 40 mg PO DAILY [facility] Last Admin: 11/19/17 09:24 Dose: 40 mg Rivaroxaban (Xarelto) 20 mg PO DAILY [facility] Last Admin: 11/19/17 09:24 Dose: 20 mg Rosuvastatin Calcium (Crestor) 2.5 mg PO HS [facility] Last Admin: 11/18/17 21:43 Dose: 2.5 mg Fluticasone/Salmeterol (Advair Diskus 250/50) 1 puff INH RQ12 [facility] Last Admin: 11/19/17 07:28 Dose: 1 puff - Labs Labs: 11/19/17 07:36 11/19/17 07:36 PT 16.3 SECONDS (9.7-12.2) H 11/15/17 03:40 INR 1.5 11/15/17 03:40 APTT 33 SECONDS (21-34) 11/15/17 03:40 Attending/Attestation - Attestation I have personally seen and examined this patient.: Yes I have fully participated in the care of the patient.: Yes I have reviewed all pertinent clinical information, including history, physical exam and plan: Yes Notes (Text): Seen and examined by me. No fever Bacteremia Strep Constellatus/milleri. On zosyn and genta as per ID His creatinine is ok. Repeat blood culture taken on 06/22/2017 We will follow blood cultures CT brain negative for abscess left arm small area of tenderness/no signs of abscess.clear lungs,abdomen benign Discussed with the resident and I agree with the documentation of the assessment and the plan
[2017-11-19] MEDS: Fluticasone-Salmeterol 250-50mcg Diskus INH SCH ×2 (07:28→19:09)
[2017-11-19] MEDS: Albuterol-Ipratrop 3 mg / 0.5 (3 ml) UD INH PRN (07:28)
[2017-11-19 07:48] LABS: BASO % 0.8 % (0.0-2.0); EOS # 0.2 K/uL (0.0-0.7); EOS % 5.3 % (0.0-4.0); HEMOGLOBIN 11.3 g/dL (12.0-18.0); LYMPH # 1.4 K/uL (1.0-4.3); LYMPH % 31.9 % (20.0-40.0); MEAN CELL VOLUME 89.7 fL (80.0-94.0); MEAN CORPUSCULAR HEMOGLOBIN 30.4 pg (27.0-31.0); MEAN CORPUSCULAR HGB CONC 33.9 g/dL (33.0-37.0); MEAN PLATELET VOLUME 7.6 fL (7.2-11.7); MONO # 0.5 K/uL (0.0-0.8); NEUT # 2.3 K/uL (1.8-7.0); NRBC % 0.1 % (0.0-2.0); RBC 3.71 Mil/uL (4.40-5.90); RED CELL DISTRIBUTION WIDTH 14.3 % (11.5-14.5); WHITE BLOOD COUNT 4.5 K/uL (4.8-10.8)
[2017-11-19 08:10] LABS: ALB/GLOB RATIO 1.1 (1.0-2.1); ALBUMIN 3.5 g/dL (3.5-5.0); ALT/SGPT 29 U/L (21-72); AST/SGOT 28 U/L (17-59); BLOOD UREA NITROGEN 14 mg/dL (9-20); CALCIUM 9.2 mg/dl (8.6-10.4); GFR AFRICAN-AMERICAN > 60; GFR NON-AFRICAN AMERICAN > 60
[2017-11-19] MEDS: Morphine 15 mg SR Tab PO SCH ×2 (09:24→21:52)
[2017-11-19] MEDS: Pantoprazole 40 mg EC Tab PO SCH (09:24)
[2017-11-19] MEDS: buPROPion 150 mg/24 Hours XL Tab PO SCH (09:25)
[2017-11-19 13:06] VITALS: RESP 20
--- NOTE | 2017-11-19 15:35 | CP.PCM.PN ---
Subjective - Date & Time of Evaluation Date of Evaluation: 11/19/17 Time of Evaluation: 03:00 - Subjective Subjective: dictated Objective - Vital Signs/Intake and Output Vital Signs (last 24 hours): Temp Pulse Resp BP Pulse Ox 97.7 F 77 20 111/71 97 11/19/17 07:00 11/19/17 13:05 11/19/17 13:05 11/19/17 13:05 11/19/17 13:05 Intake and Output: 11/19/17 11/19/17 06:59 18:59 Intake Total 1835 Output Total 350 Balance 1485 - Medications Medications: Current Medications Acetaminophen (Tylenol 325mg Tab) 650 mg PO Q6 PRN PRN Reason: Fever >100.4 F Last Admin: 11/15/17 17:05 Dose: 650 mg Albuterol/Ipratropium (Duoneb 3 Mg/0.5 Mg (3 Ml) Ud) 3 ml INH RQ6 PRN PRN Reason: Wheezing Last Admin: 11/19/17 07:28 Dose: 3 ml Alprazolam (Xanax) 0.5 mg PO HS PRN PRN Reason: Anxiety Last Admin: 11/18/17 22:51 Dose: 0.5 mg Aspirin (Ecotrin) 81 mg PO DAILY [facility] Last Admin: 11/19/17 09:24 Dose: 81 mg Bupropion HCl (Wellbutrin Xl) 150 mg PO DAILY [facility] Last Admin: 11/19/17 09:25 Dose: 150 mg Digoxin (Digoxin) 0.125 mg PO DAILY@1800 [facility] Last Admin: 11/18/17 18:58 Dose: 0.125 mg Diltiazem HCl (Cardizem) 30 mg PO Q6 [facility] Last Admin: 11/19/17 13:00 Dose: 30 mg Docusate Sodium (Colace) 100 mg PO TID [facility] Last Admin: 11/19/17 13:07 Dose: Not Given Gentamicin Sulfate 80 mg/ (Sodium Chloride) 102 mls @ 100 mls/hr IVPB Q8H [facility] PRN Reason: Protocol Last Admin: 11/19/17 13:01 Dose: 100 mls/hr Piperacillin Sod/Tazobactam Sod (Zosyn 2.25 Gm Iv Premix) 2.25 gm in 50 mls @ 100 mls/hr IVPB Q6H [facility] PRN Reason: Protocol Last Admin: 11/19/17 14:48 Dose: 100 mls/hr Metoprolol Tartrate (Lopressor) 25 mg PO Q12 [facility] Last Admin: 11/19/17 09:25 Dose: 25 mg Morphine Sulfate (Morphine Extended Release Tab) 15 mg PO Q12 [facility] Stop: 11/23/17 15:00 Pantoprazole Sodium (Protonix Ec Tab) 40 mg PO DAILY [facility] Last Admin: 11/19/17 09:24 Dose: 40 mg Paroxetine HCl (Paxil) 40 mg PO DAILY [facility] Last Admin: 11/19/17 09:24 Dose: 40 mg Rivaroxaban (Xarelto) 20 mg PO DAILY [facility] Last Admin: 11/19/17 09:24 Dose: 20 mg Rosuvastatin Calcium (Crestor) 2.5 mg PO HS [facility] Last Admin: 11/18/17 21:43 Dose: 2.5 mg Fluticasone/Salmeterol (Advair Diskus 250/50) 1 puff INH RQ12 [facility] Last Admin: 11/19/17 07:28 Dose: 1 puff - Labs Labs: 11/19/17 07:36 11/19/17 07:36 PT 16.3 SECONDS (9.7-12.2) H 11/15/17 03:40 INR 1.5 11/15/17 03:40 APTT 33 SECONDS (21-34) 11/15/17 03:40
[2017-11-19] MEDS: Vancomycin 1 gm/NS 200 ml 1 GM/200 ML BAG IVPB SCH (17:47)
[2017-11-19] MEDS: Digoxin 125 mcg (0.125 mg) Tab PO SCH (17:49)
--- NOTE | 2017-11-19 21:32 | PN ---
DATE: 11/19/2017 SUBJECTIVE: He still states that his left wrist was hurting. There was a fall and it was hurting a lot. He denied any chest pain. He still has some numbness in the forearm which is all over, and he says it is more in palm area, not able to explain that. PHYSICAL EXAMINATION: GENERAL: He was, otherwise, awake and alert. VITAL SIGNS: T-max was 97.7, pulse 77, blood pressure 111/72, respirations are 20. HEENT: Head is atraumatic, normocephalic. NECK: Supple. LUNGS: Clear. HEART: S1, S2 is regular. ABDOMEN: Soft, nontender. EXTREMITIES: Have no edema. Has some tenderness on the left forearm. LABORATORY DATA: White count is 4.5, hemoglobin 11.3, hematocrit 33.3, platelet count is 164. Sodium 143, potassium 4.4, chlorides are 103, CO2 is 31, BUN is 14, creatinine is 0.9. His report came back of Streptococcus constellatus milleri and that it is very resistant Strep and it is only sensitive to vancomycin. So I will keep him on vancomycin and gentamicin for now until we have a negative culture, and would discontinue the Zosyn and get him back on the vancomycin. I thought Strep should be sensitive to ampicillin, penicillin but this one is resistant. We will make the appropriate changes at this time and we will follow. His creatine is 0.9, and we will continue to treat him as he has streptococcus bacteremia. He also was saying he has a dental issue which may have been causing the problem also. Faisal Russell MD
[2017-11-19] MEDS: Rosuvastatin Calcium 2.5 mg Tab PO SCH (21:51)
[2017-11-20] MEDS: Vancomycin 1 gm/NS 200 ml 1 GM/200 ML BAG IVPB SCH ×2 (04:04→18:00)
--- NOTE | 2017-11-20 07:32 | CP.PCM.PN ---
<Jose Horton S - Last Filed: 11/20/17 10:15> Subjective - Date & Time of Evaluation Date of Evaluation: 11/20/17 Time of Evaluation: 07:33 - Subjective Subjective: Medicine Progress Note for hospitalist Dr. Moe Patient was seen and examined today at bedside. He states that he is feeling better today. He denies any acute complaints. No acute events overnight as per nursing staff. Afebrile for >24hrs. Objective - Vital Signs/Intake and Output Vital Signs (last 24 hours): Temp Pulse Resp BP Pulse Ox 97.5 F L 63 20 99/60 L 98 11/19/17 23:50 11/19/17 23:50 11/19/17 23:50 11/20/17 04:00 11/19/17 23:50 Intake and Output: 11/20/17 11/20/17 06:59 18:59 Intake Total 1020 Output Total 1250 Balance -230 - Medications Medications: Current Medications Acetaminophen (Tylenol 325mg Tab) 650 mg PO Q6 PRN PRN Reason: Fever >100.4 F Last Admin: 11/15/17 17:05 Dose: 650 mg Alprazolam (Xanax) 0.5 mg PO HS PRN PRN Reason: Anxiety Last Admin: 11/19/17 22:46 Dose: 0.5 mg Aspirin (Ecotrin) 81 mg PO DAILY [facility] Last Admin: 11/19/17 09:24 Dose: 81 mg Bupropion HCl (Wellbutrin Xl) 150 mg PO DAILY [facility] Last Admin: 11/19/17 09:25 Dose: 150 mg Digoxin (Digoxin) 0.125 mg PO DAILY@1800 [facility] Last Admin: 11/19/17 17:49 Dose: 0.125 mg Diltiazem HCl (Cardizem) 30 mg PO Q6 [facility] Last Admin: 11/20/17 05:22 Dose: Not Given Docusate Sodium (Colace) 100 mg PO TID [facility] Last Admin: 11/19/17 17:47 Dose: 100 mg Gentamicin Sulfate 80 mg/ (Sodium Chloride) 102 mls @ 100 mls/hr IVPB Q8H [facility] PRN Reason: Protocol Last Admin: 11/20/17 05:19 Dose: 100 mls/hr Vancomycin/Sodium Chloride (Vancomycin 1 Gm/Ns 200 Ml) 1 gm in 200 mls @ 166.6 mls/hr IVPB Q12H [facility] PRN Reason: Protocol Stop: 11/24/17 16:01 Last Admin: 11/20/17 04:04 Dose: 166.6 mls/hr Metoprolol Tartrate (Lopressor) 25 mg PO Q12 [facility] Last Admin: 11/19/17 21:54 Dose: 25 mg Morphine Sulfate (Morphine Extended Release Tab) 15 mg PO Q12 [facility] Stop: 11/23/17 15:00 Last Admin: 11/19/17 21:52 Dose: 15 mg Pantoprazole Sodium (Protonix Ec Tab) 40 mg PO DAILY [facility] Last Admin: 11/19/17 09:24 Dose: 40 mg Paroxetine HCl (Paxil) 40 mg PO DAILY [facility] Last Admin: 11/19/17 09:24 Dose: 40 mg Rivaroxaban (Xarelto) 20 mg PO DAILY [facility] Last Admin: 11/19/17 09:24 Dose: 20 mg Rosuvastatin Calcium (Crestor) 2.5 mg PO HS [facility] Last Admin: 11/19/17 21:51 Dose: 2.5 mg Fluticasone/Salmeterol (Advair Diskus 250/50) 1 puff INH RQ12 [facility] Last Admin: 11/19/17 19:09 Dose: 1 puff - Labs Labs: 11/19/17 07:36 11/19/17 07:36 PT 16.3 SECONDS (9.7-12.2) H 11/15/17 03:40 INR 1.5 11/15/17 03:40 APTT 33 SECONDS (21-34) 11/15/17 03:40 - Constitutional Appears: No Acute Distress - Head Exam Head Exam: ATRAUMATIC, NORMOCEPHALIC - Eye Exam Eye Exam: EOMI, Normal appearance - ENT Exam ENT Exam: Mucous Membranes Moist - Respiratory Exam Respiratory Exam: Clear to Ausculation Bilateral, NORMAL BREATHING PATTERN - Cardiovascular Exam Cardiovascular Exam: +S1, +S2 - GI/Abdominal Exam GI & Abdominal Exam: Soft. absent: Tenderness - Neurological Exam Neurological Exam: Alert, Awake, Oriented x3 - Psychiatric Exam Psychiatric exam: Normal Affect, Normal Mood - Skin Skin Exam: Dry, Warm Assessment and Plan - Assessment and Plan (Free Text) Plan: Bacteremia- Strep Constellatus/milleri - Afebrile overnight, stable - WBC trending down, 4.0 today - Blood cultures: gram positive cocci preliminary- follow up final results - Blood culture (11/15): Strep constellatus/milleri sensitive to vancomycin - CT Head to r/o abscess (known assoc with Strep constellatus/milleri) (11/18) no evidence of intracranial abscess. Mild chronic white matter ischemic change - Echo showed no vegetations - Dr Parham ID specialist consulted - help is appreciated. F/U recs -Vanco 1gm in 200ml IVPB Q12- discontinued 11/18/17 -Zosyn 2.25g IV q6hrs- started 11/18/17 (discontinued 11/19/17) -Gentamycin 80mg IV q8hrs- started 11/17/17 - Tylenol 650mg Q6 PRN for fevers greater 100.4 - F/U am labs - continue monitoring temperature - Urine Culture: clean catch, no growth - Sputum culture: few epithelial cells, few WBC, moderate gram positive cocci in clusters - The source of this patients bacteremia remains undetermined, however this strain of strep is very resistance with particular sensitivity to vancomycin. As per ID we will continue with vanc/genta. Zosyn has been discontinued on . We will await followup cx for resolution of infection and ID recs. Right distal forearm cellulitis- resolving/improving -not erythematous, not warm upon palpation -Patient denies IV drug use - WBC: 4.0 - vanc/gentamycin as described above - keep monitoring am labs Chest Pain with negative cardio-pulmonary workup - Vitals stable. Patient is remains asymptomatic at the time. - Echocardiogram (11/17) LVEF 65-70%. LV systolic function is normal, mild mitral regurgitation, mild tricuspid regurg, mild pulm valvular regurg - ECHO done 05/2017 showed normal LVEF. - Continue monitor vitals and symptoms - Reviewing medical records, as per [employer] - multiple stress tests done with no findings, last cardiac cath was 05/2017 with no obstructive coronaries noted, single vessel CAD. - ОЛЕГ negative x3 - EKG NSR @ 96 BPM - repeat EKG: normal sinus rhythm, normal HR HTN - Continue Metoprolol 25mg BID, HCTZ 12.5mg daily - BP stable IGT - A1C 5.5 (09/2017) - Lipid panel WNL Hx CAD, Hx PA (07/2016) Hx TIAs - Continue ASA 81mg PO daily, Xarelto 20mg PO daily, Rosuvastatin 2.5mg PO daily Atrial Fibrillation - Continue Xarelto 20mg PO daily, Cardizem 30mg PO q6hrs, Digoxin 0.125mg PO daily - rate controlled Spinal stenosis - No intervention at this time - pain control prn- morphine 15 mg PO q12hrs (home med) COPD - Continue Advair 250/50 1puff inh q12hrs, Duonebs as needed PTSD/ Anxiety/ Depression - Continue Bupropion XL 150mg daily, Paxil 40mg daily Prophylactic Measures - GI PPX: Protonix 40mg PO daily - DVT PPX: Xarelto 20mg daily, SCDs - HHD - Dispo: PT consulted for possible cane on discharge Plan discussed with Dr. Abhi Horton D.O. <Newton Moe - Last Filed: 11/20/17 13:50> Objective - Vital Signs/Intake and Output Vital Signs (last 24 hours): Temp Pulse Resp BP Pulse Ox 97.5 F L 66 20 119/76 96 11/20/17 07:54 11/20/17 12:00 11/20/17 07:54 11/20/17 12:00 11/20/17 07:54 Intake and Output: 11/20/17 11/20/17 06:59 18:59 Intake Total 1020 Output Total 1250 Balance -230 - Medications Medications: Current Medications Acetaminophen (Tylenol 325mg Tab) 650 mg PO Q6 PRN PRN Reason: Fever >100.4 F Last Admin: 11/15/17 17:05 Dose: 650 mg Alprazolam (Xanax) 0.5 mg PO HS PRN PRN Reason: Anxiety Last Admin: 11/19/17 22:46 Dose: 0.5 mg Aspirin (Ecotrin) 81 mg PO DAILY [facility] Last Admin: 11/20/17 09:54 Dose: 81 mg Bupropion HCl (Wellbutrin Xl) 150 mg PO DAILY [facility] Last Admin: 11/20/17 09:54 Dose: 150 mg Digoxin (Digoxin) 0.125 mg PO DAILY@1800 [facility] Last Admin: 11/19/17 17:49 Dose: 0.125 mg Diltiazem HCl (Cardizem) 30 mg PO Q6 [facility] Last Admin: 11/20/17 12:00 Dose: 30 mg Docusate Sodium (Colace) 100 mg PO TID [facility] Last Admin: 11/20/17 13:23 Dose: Not Given Gentamicin Sulfate 80 mg/ (Sodium Chloride) 102 mls @ 100 mls/hr IVPB Q8H [facility] PRN Reason: Protocol Last Admin: 11/20/17 13:23 Dose: 100 mls/hr Vancomycin/Sodium Chloride (Vancomycin 1 Gm/Ns 200 Ml) 1 gm in 200 mls @ 166.6 mls/hr IVPB Q12H [facility] PRN Reason: Protocol Stop: 11/24/17 16:01 Last Admin: 11/20/17 04:04 Dose: 166.6 mls/hr Lactated Ringer's (Lactated Ringer's) 1,000 mls @ 50 mls/hr IV .Q20H [facility] Last Admin: 11/20/17 10:43 Dose: 50 mls/hr Metoprolol Tartrate (Lopressor) 25 mg PO Q12 [facility] Last Admin: 11/20/17 09:54 Dose: 25 mg Morphine Sulfate (Morphine Extended Release Tab) 15 mg PO Q12 [facility] Stop: 11/23/17 15:00 Last Admin: 11/20/17 09:54 Dose: 15 mg Pantoprazole Sodium (Protonix Ec Tab) 40 mg PO DAILY [facility] Last Admin: 11/20/17 09:54 Dose: 40 mg Paroxetine HCl (Paxil) 40 mg PO DAILY [facility] Last Admin: 11/20/17 09:54 Dose: 40 mg Rivaroxaban (Xarelto) 20 mg PO DAILY [facility] Last Admin: 11/20/17 09:54 Dose: 20 mg Rosuvastatin Calcium (Crestor) 2.5 mg PO HS [facility] Last Admin: 11/19/17 21:51 Dose: 2.5 mg Fluticasone/Salmeterol (Advair Diskus 250/50) 1 puff INH RQ12 [facility] Last Admin: 11/20/17 08:21 Dose: 1 puff - Labs Labs: 11/20/17 08:42 11/20/17 08:42 PT 16.3 SECONDS (9.7-12.2) H 11/15/17 03:40 INR 1.5 11/15/17 03:40 APTT 33 SECONDS (21-34) 11/15/17 03:40 Attending/Attestation - Attestation I have personally seen and examined this patient.: Yes I have fully participated in the care of the patient.: Yes I have reviewed all pertinent clinical information, including history, physical exam and plan: Yes Notes (Text): Seen and examined by me this morning,sitting comfortable,no pain,plan explained. appreciate the care given No fever,no leukocytosis 1. Bacteremia- Strep Constellatus/milleri continue Vancomycin and gentamycin Repeat cultures [id number] drawn on 06/21/[address] hall today we will ask activities volunteer for VIDHYA to r/o Endocarditis 2.Chest pain-resolved 3.Left arm cellulites 4.Hypertension 5.CAD/PA/TIA 6.afib 7 spinal steonosis 8.COPD d/w resident and I agree with the documentation
[2017-11-20] MEDS: Fluticasone-Salmeterol 250-50mcg Diskus INH SCH ×2 (08:21→19:26)
[2017-11-20 09:02] LABS: BASO # 0.1 K/uL (0.0-0.2); BASO % 1.4 % (0.0-2.0); EOS # 0.2 K/uL (0.0-0.7); EOS % 5.4 % (0.0-4.0); LYMPH # 1.3 K/uL (1.0-4.3); LYMPH % 32.1 % (20.0-40.0); MEAN CELL VOLUME 89.2 fL (80.0-94.0); MEAN CORPUSCULAR HEMOGLOBIN 30.4 pg (27.0-31.0); MEAN CORPUSCULAR HGB CONC 34.1 g/dL (33.0-37.0); MEAN PLATELET VOLUME 7.8 fL (7.2-11.7); MONO # 0.5 K/uL (0.0-0.8); MONO % 12.6 % (0.0-10.0); NEUT % 48.5 % (50.0-75.0); NRBC % 0.2 % (0.0-2.0); RBC 3.62 Mil/uL (4.40-5.90)
[2017-11-20 09:15] LABS: ALB/GLOB RATIO 1.3 (1.0-2.1); ALBUMIN 3.7 g/dL (3.5-5.0); ALT/SGPT 42 U/L (21-72); AST/SGOT 29 U/L (17-59); BLOOD UREA NITROGEN 15 mg/dL (9-20); CALCIUM 9.1 mg/dl (8.6-10.4); GFR AFRICAN-AMERICAN > 60; GFR NON-AFRICAN AMERICAN > 60
[2017-11-20] MEDS: Morphine 15 mg SR Tab PO SCH ×2 (09:54→21:33)
[2017-11-20] MEDS: Pantoprazole 40 mg EC Tab PO SCH (09:54)
[2017-11-20] MEDS: buPROPion 150 mg/24 Hours XL Tab PO SCH (09:54)
[2017-11-20] MEDS: Lactated Ringer's 1,000 ML IV SCH (10:43)
[2017-11-20] MEDS: Digoxin 125 mcg (0.125 mg) Tab PO SCH (18:01)
[2017-11-20] MEDS: Rosuvastatin Calcium 2.5 mg Tab PO SCH (21:35)
[2017-11-21] MEDS: Vancomycin 1 gm/NS 200 ml 1 GM/200 ML BAG IVPB SCH ×2 (03:30→17:27)
[2017-11-21] MEDS: Lactated Ringer's 1,000 ML IV SCH (05:16)
[2017-11-21 07:51] LABS: EOS # 0.2 K/uL (0.0-0.7); EOS % 4.5 % (0.0-4.0); HEMOGLOBIN 11.4 g/dL (12.0-18.0); LYMPH # 1.3 K/uL (1.0-4.3); LYMPH % 27.6 % (20.0-40.0); MEAN CELL VOLUME 89.4 fL (80.0-94.0); MEAN CORPUSCULAR HEMOGLOBIN 30.4 pg (27.0-31.0); MEAN PLATELET VOLUME 7.5 fL (7.2-11.7); MONO # 0.6 K/uL (0.0-0.8); MONO % 12.7 % (0.0-10.0); NEUT # 2.6 K/uL (1.8-7.0); NEUT % 54.2 % (50.0-75.0); RBC 3.74 Mil/uL (4.40-5.90); RED CELL DISTRIBUTION WIDTH 14.1 % (11.5-14.5); WHITE BLOOD COUNT 4.9 K/uL (4.8-10.8)
[2017-11-21 08:14] LABS: ALB/GLOB RATIO 1.2 (1.0-2.1); ALBUMIN 3.6 g/dL (3.5-5.0); ALT/SGPT 45 U/L (21-72); AST/SGOT 35 U/L (17-59); BLOOD UREA NITROGEN 17 mg/dL (9-20); CALCIUM 9.4 mg/dl (8.6-10.4); GFR AFRICAN-AMERICAN > 60; GFR NON-AFRICAN AMERICAN > 60
[2017-11-21] MEDS: Fluticasone-Salmeterol 250-50mcg Diskus INH SCH ×2 (09:40→19:58)
--- NOTE | 2017-11-21 09:47 | CP.PCM.CON ---
History of Present Illness - History of Present Illness History of Present Illness: PGY-[address] Field Pt is a 62 year old male with PMHx HTN, CAD, DC (08/16) A Fib on Xarelto, TIA x2 , carotid artery disease, COPD, untreated Hep C who presented on Wednesday 11/15 with sudden, sharp, intermittent chest pains radiating down pt's left arm. Pt stated that the pain was similar to feeling he had felt when he had an DC in July of 2016. Pt was febrile with temps up to 103.0 without white count or tachycardia. EKG on admission showed NSR with no acute ST or T changes, and serial enzymes were negative. Pt was found to be bacteremic with cultures growing gram positive rods on 11/15, pt was started on IB ABx, cultures 11/18 negative at 48 hours growth. Pt has extensive cardiac history and family history of cardiac disease, including 3 siblings with MIs in their 40s and 50s. Echo (11/17) showed EF 60s-70s, mild mitral regurgitation, mild tricuspid regurgitation, mild pulmonic regurgitation, normal LV systolic function. Pt has a 30 pack-year smoking history and quit 2 years ago. Denies alcohol use, any history of drug use. No hx of valve replacement. Patient denies any chest pain at present, but has some tingling in his R arm and hand. Patient states he has had episodes of palpitations, which he does experience due to his AFib, but the recent episodes have been more severe and more frequent. Denies chest pains, nausea, vomiting, shorness of breath, dizziness, headache, fever or chills Review of Systems - Constitutional Constitutional: Fatigue. absent: Chills - Cardiovascular Cardiovascular: absent: Chest Pain, Chest Pain at Rest, Leg Edema, Palpitations - Respiratory Respiratory: absent: Cough, Dyspnea - Gastrointestinal Gastrointestinal: absent: Abdominal Pain, Nausea, Vomiting - Neurological Neurological: absent: Confusion, Dizziness, Headaches Past Patient History - Infectious Disease Hx of Infectious Diseases: None - Tetanus Immunizations Tetanus Immunization: Unknown - Past Medical History & Family History Past Medical History?: Yes - Past Social History Smoking Status: Never Smoked - CARDIAC Hx Cardiac Disorders: Yes (CAD, A-fib) Hx Hypertension: Yes - PULMONARY Hx Chronic Obstructive Pulmonary Disease (COPD): Yes - NEUROLOGICAL HX Cerebrovascular Accident: Yes (TIA) - HEENT Hx HEENT Problems: Yes Hx Cataracts: Yes ("early stages" as per patient) - RENAL Hx Chronic Kidney Disease: No - ENDOCRINE/METABOLIC Hx Endocrine Disorders: No - HEMATOLOGICAL/ONCOLOGICAL Hx Human Immunodeficiency Virus (HIV): No - INTEGUMENTARY Hx Dermatological Problems: Yes Hx Psoriasis: Yes - MUSCULOSKELETAL/RHEUMATOLOGICAL Hx Arthritis: Yes - GASTROINTESTINAL Hx Gastrointestinal Disorders: No - GENITOURINARY/GYNECOLOGICAL Hx Sexually Transmitted Disorders: No - PSYCHIATRIC Hx Substance Use: No - SURGICAL HISTORY Hx Appendectomy: Yes Hx Tonsillectomy: Yes - ANESTHESIA Hx Anesthesia: Yes Hx Anesthesia Reactions: No Hx Malignant Hyperthermia: No Meds Allergies/Adverse Reactions: Allergies Allergy/AdvReac Type Severity Reaction Status Date / Time ketorolac [From Toradol] Allergy Verified 11/15/17 03:19 - Medications Medications: Current Medications Acetaminophen (Tylenol 325mg Tab) 650 mg PO Q6 PRN PRN Reason: Fever >100.4 F Last Admin: 11/15/17 17:05 Dose: 650 mg Alprazolam (Xanax) 0.5 mg PO HS PRN PRN Reason: Anxiety Last Admin: 11/20/17 22:34 Dose: 0.5 mg Aspirin (Ecotrin) 81 mg PO DAILY [facility] Last Admin: 11/20/17 09:54 Dose: 81 mg Bupropion HCl (Wellbutrin Xl) 150 mg PO DAILY [facility] Last Admin: 11/20/17 09:54 Dose: 150 mg Digoxin (Digoxin) 0.125 mg PO DAILY@1800 [facility] Last Admin: 11/20/17 18:01 Dose: 0.125 mg Diltiazem HCl (Cardizem) 30 mg PO Q6 [facility] Last Admin: 11/21/17 06:31 Dose: 30 mg Docusate Sodium (Colace) 100 mg PO TID [facility] Last Admin: 11/20/17 18:01 Dose: 100 mg Gentamicin Sulfate 80 mg/ (Sodium Chloride) 102 mls @ 100 mls/hr IVPB Q8H [facility] PRN Reason: Protocol Last Admin: 11/21/17 05:10 Dose: 100 mls/hr Vancomycin/Sodium Chloride (Vancomycin 1 Gm/Ns 200 Ml) 1 gm in 200 mls @ 166.6 mls/hr IVPB Q12H [facility] PRN Reason: Protocol Stop: 11/24/17 16:01 Last Admin: 11/21/17 03:30 Dose: 166.6 mls/hr Lactated Ringer's (Lactated Ringer's) 1,000 mls @ 50 mls/hr IV .Q20H [facility] Last Admin: 11/21/17 05:16 Dose: 50 mls/hr Metoprolol Tartrate (Lopressor) 25 mg PO Q12 [facility] Last Admin: 11/20/17 21:36 Dose: 25 mg Morphine Sulfate (Morphine Extended Release Tab) 15 mg PO Q12 [facility] Stop: 11/23/17 15:00 Last Admin: 11/20/17 21:33 Dose: 15 mg Pantoprazole Sodium (Protonix Ec Tab) 40 mg PO DAILY [facility] Last Admin: 11/20/17 09:54 Dose: 40 mg Paroxetine HCl (Paxil) 40 mg PO DAILY [facility] Last Admin: 11/20/17 09:54 Dose: 40 mg Rivaroxaban (Xarelto) 20 mg PO DAILY [facility] Last Admin: 11/20/17 09:54 Dose: 20 mg Rosuvastatin Calcium (Crestor) 2.5 mg PO HS [facility] Last Admin: 11/20/17 21:35 Dose: 2.5 mg Fluticasone/Salmeterol (Advair Diskus 250/50) 1 puff INH RQ12 [facility] Last Admin: 11/20/17 19:26 Dose: 1 puff Physical Exam - Constitutional Appears: No Acute Distress - Head Exam Head Exam: NORMAL INSPECTION, NORMOCEPHALIC - Eye Exam Eye Exam: EOMI, Normal appearance, PERRL - ENT Exam ENT Exam: Mucous Membranes Moist, Normal Oropharynx - Respiratory Exam Respiratory Exam: Wheezes Additional comments: +wheezes b/l at apices - Cardiovascular Exam Cardiovascular Exam: REGULAR RHYTHM, +S1, +S2 - GI/Abdominal Exam GI & Abdominal Exam: Normal Bowel Sounds, Soft - Extremities Exam Extremities exam: Positive for: pedal pulses present. Negative for: pedal edema - Neurological Exam Neurological exam: Alert, CN II-XII Intact, Oriented x3 Results - Vital Signs Recent Vital Signs: Last Vital Signs Temp 97.6 F 11/21/17 07:00 Pulse 70 11/21/17 07:00 Resp 20 11/21/17 07:00 BP 130/82 11/21/17 07:00 Pulse Ox 97 11/21/17 07:00 - Labs Result Diagrams: 11/23/17 08:11 11/23/17 08:11 Labs: Laboratory Results - last 24 hr 11/20/17 11/20/17 11/20/17 08:42 15:03 21:44 WBC RBC Hgb Hct MCV MCH MCHC RDW Plt Count MPV Neut % (Auto) Lymph % (Auto) [place] % (Auto) Eos % (Auto) Baso % (Auto) Neut # (Auto) Lymph # (Auto) [place] # (Auto) Eos # (Auto) Baso # (Auto) Sodium 143 Potassium 4.5 Chloride 103 Carbon Dioxide 32 H Anion Gap 12 BUN 15 Creatinine 0.8 Est GFR ( Amer) > 60 Est GFR (Non-Af Amer) > 60 Random Glucose 108 Calcium 9.1 Phosphorus 3.6 Magnesium 1.9 Total Bilirubin 0.2 AST 29 ALT 42 Alkaline Phosphatase 64 Total Protein 6.6 Albumin 3.7 Globulin 2.9 Albumin/Globulin Ratio 1.3 Vancomycin Peak 21.5 L Vancomycin Trough 10.8 H 11/21/17 11/21/17 07:36 07:37 WBC 4.9 RBC 3.74 L Hgb 11.4 L Hct 33.5 L MCV 89.4 MCH 30.4 MCHC 34.0 RDW 14.1 Plt Count 165 MPV 7.5 Neut % (Auto) 54.2 Lymph % (Auto) 27.6 [place] % (Auto) 12.7 H Eos % (Auto) 4.5 H Baso % (Auto) 1.0 Neut # (Auto) 2.6 Lymph # (Auto) 1.3 [place] # (Auto) 0.6 Eos # (Auto) 0.2 Baso # (Auto) 0.0 Sodium 145 Potassium 5.1 Chloride 105 Carbon Dioxide 33 H Anion Gap 13 BUN 17 Creatinine 0.9 Est GFR ( Amer) > 60 Est GFR (Non-Af Amer) > 60 Random Glucose 93 Calcium 9.4 Phosphorus 3.8 Magnesium 2.0 Total Bilirubin 0.3 AST 35 ALT 45 Alkaline Phosphatase 63 Total Protein 6.6 Albumin 3.6 Globulin 3.0 Albumin/Globulin Ratio 1.2 Vancomycin Peak Vancomycin Trough Assessment & Plan (1) Chest discomfort Assessment and Plan: EKG 11/15: NSR, no ST or T changes Cardiac Enzymes negative x3 (11/15) Echo 7/19: EF 60-70%, Mild MR, Mild tricuspid regurgitation, mild pulmonic regurgitation Cardiac Cath (05/2017): No significant obstructions of the coronary arteries, single vessel CAD Stress test vs Cath vs No intervention (?) Status: Acute (2) Atrial fibrillation Assessment and Plan: On DAPT (Aspirin, Xarelto) History of TIAs x2, most recent Jun 2016 History of carotid artery disease Consider ablation procedure due to history of TIA and extensive family history Status: Chronic (3) Hypertension Assessment and Plan: BPs 110s/70s - 120s/70s Hx TIA and CAD Controlled on home meds, follow up at home with primary Status: Chronic (4) Bacteremia Assessment and Plan: On IV ABx (Vanc, Gentamycin) Cultures positive (11/15) growing Strep Constellatus/Milleri Cultures (11/18): No growth at 48 hours No visible vegetations on TTE. Will hold on VIDHYA unless further warranted. Status: Acute
[2017-11-21] MEDS: buPROPion 150 mg/24 Hours XL Tab PO SCH (09:52)
[2017-11-21] MEDS: Pantoprazole 40 mg EC Tab PO SCH (09:52)
[2017-11-21] MEDS: Morphine 15 mg SR Tab PO SCH ×2 (09:53→21:31)
--- NOTE | 2017-11-21 11:12 | PN ---
DATE: 11/18/2017 SUBJECTIVE: His blood cultures came out positive I was told, and as I was suspecting it is Streptococcus and is still waiting for the final ID and sensitivities of some of the blood cultures, he did say he may have root canal problem and infection on the right lower jaw, and he denies any chest pain today. Still on the left forearm, he is precipitation equipment tender, and he has a bulge, maybe, he has small abscess present. It is still warm to touch. He denies any chills. No shortness of breath. No chest pain. No back pain. He still complains of numbness in the left forearm which he says has been new. He went for a CAT scan head which was negative. He needed a neurology evaluation. He denies any chest pain. No back pain. No nausea. No vomiting. No diarrhea. Otherwise, he says he has too many problems which I did not go into. PHYSICAL EXAMINATION: VITAL SIGNS: T-max is 97.7, pulse is 76, blood pressure 100/66, respirations are 18. HEENT: Head is atraumatic, normocephalic. NECK: Supple. JVP is flat. LUNGS: Clear. HEART: Regular. No murmurs appreciated. ABDOMEN: Soft, nontender. No guarding. No rigidity present. EXTREMITIES: No edema, clubbing, or cyanosis. LABORATORY DATA: White count is 5.7, hemoglobin 12.4, hematocrit 36.6, platelet count is 210; and repeat cultures have been ordered by the PMD. BUN is 14, creatinine 0.8. Microwise cultures came out, and the first culture shows this is Streptococcus constellatus, milleri group big bottle only. The other ones are pending at this time. Since it is only Strep, I am planning to take away the vancomycin and leave him on Zosyn and gentamicin at this time and echo was also done. We will follow. He does have a tooth problem, and I want to make sure he is on Zosyn and gentamicin before I discontinue the vancomycin. He is on vancomycin and gentamicin and ____ we will leave him on Zosyn and gentamicin at this time, and we will follow, and if it is streptococcus, it should be sensitive to Zosyn, and we will follow. Also to check the echo report. We will follow. The infection may be either from the phlebitis that he has on the left forearm, and he also had some fossa which has improved and he is on digoxin. I think he did have atrial fib. We will leave him on Zosyn as well as gentamicin and discontinue vancomycin as it is only Streptococcus. We will follow and check the echo. We are still waiting for the final ID and sensitivity of the organism. Faisal Russell MD
--- NOTE | 2017-11-21 13:18 | CP.PCM.PN ---
Subjective - Date & Time of Evaluation Date of Evaluation: 11/21/17 Time of Evaluation: 07:30 - Subjective Subjective: PGY-[address] Rolf Rico service Patient is seen and examined at bedside. Patient states he continues to have left hand numbness and tingling. Patient says left forearm lump is less warm but continues to be painful and tender on palpation. Patient says he continues to have difficulty keeping his balance. Patient admits to hot flashes, mild shortness of breath. Patient denies fevers, chills, Chest pain, nausea, vomiting , diarrhea, constipation or dysuria. Objective - Vital Signs/Intake and Output Vital Signs (last 24 hours): Temp Pulse Resp BP Pulse Ox 97.6 F 70 20 110/67 97 11/21/17 07:00 11/21/17 07:00 11/21/17 07:00 11/21/17 09:52 11/21/17 07:00 Intake and Output: 11/21/17 11/21/17 06:59 18:59 Intake Total 1880 Output Total 1700 Balance 180 - Medications Medications: Current Medications Acetaminophen (Tylenol 325mg Tab) 650 mg PO Q6 PRN PRN Reason: Fever >100.4 F Last Admin: 11/15/17 17:05 Dose: 650 mg Alprazolam (Xanax) 0.5 mg PO HS PRN PRN Reason: Anxiety Last Admin: 11/20/17 22:34 Dose: 0.5 mg Aspirin (Ecotrin) 81 mg PO DAILY [facility] Last Admin: 11/21/17 09:53 Dose: 81 mg Bupropion HCl (Wellbutrin Xl) 150 mg PO DAILY [facility] Last Admin: 11/21/17 09:52 Dose: 150 mg Digoxin (Digoxin) 0.125 mg PO DAILY@1800 [facility] Last Admin: 11/20/17 18:01 Dose: 0.125 mg Diltiazem HCl (Cardizem) 30 mg PO Q6 [facility] Last Admin: 11/21/17 12:08 Dose: 30 mg Docusate Sodium (Colace) 100 mg PO TID [facility] Last Admin: 11/21/17 09:54 Dose: Not Given Gentamicin Sulfate 80 mg/ (Sodium Chloride) 102 mls @ 100 mls/hr IVPB Q8H [facility] PRN Reason: Protocol Last Admin: 11/21/17 05:10 Dose: 100 mls/hr Vancomycin/Sodium Chloride (Vancomycin 1 Gm/Ns 200 Ml) 1 gm in 200 mls @ 166.6 mls/hr IVPB Q12H [facility] PRN Reason: Protocol Stop: 11/24/17 16:01 Last Admin: 11/21/17 03:30 Dose: 166.6 mls/hr Lactated Ringer's (Lactated Ringer's) 1,000 mls @ 50 mls/hr IV .Q20H [facility] Last Admin: 11/21/17 05:16 Dose: 50 mls/hr Metoprolol Tartrate (Lopressor) 25 mg PO Q12 [facility] Last Admin: 11/21/17 09:52 Dose: 25 mg Morphine Sulfate (Morphine Extended Release Tab) 15 mg PO Q12 [facility] Stop: 11/23/17 15:00 Last Admin: 11/21/17 09:53 Dose: 15 mg Pantoprazole Sodium (Protonix Ec Tab) 40 mg PO DAILY [facility] Last Admin: 11/21/17 09:52 Dose: 40 mg Paroxetine HCl (Paxil) 40 mg PO DAILY [facility] Last Admin: 11/21/17 09:53 Dose: 40 mg Rivaroxaban (Xarelto) 20 mg PO DAILY [facility] Last Admin: 11/21/17 09:52 Dose: 20 mg Rosuvastatin Calcium (Crestor) 2.5 mg PO HS [facility] Last Admin: 11/20/17 21:35 Dose: 2.5 mg Fluticasone/Salmeterol (Advair Diskus 250/50) 1 puff INH RQ12 [facility] Last Admin: 11/21/17 09:40 Dose: 1 puff - Labs Labs: 11/21/17 07:36 11/21/17 07:37 PT 16.3 SECONDS (9.7-12.2) H 11/15/17 03:40 INR 1.5 11/15/17 03:40 APTT 33 SECONDS (21-34) 11/15/17 03:40 - Constitutional Appears: Well, Non-toxic, No Acute Distress - Head Exam Head Exam: ATRAUMATIC, NORMAL INSPECTION, NORMOCEPHALIC - Eye Exam Eye Exam: EOMI, Normal appearance, PERRL - ENT Exam ENT Exam: Mucous Membranes Dry, Normal Exam - Neck Exam Neck Exam: Full ROM, Normal Inspection - Respiratory Exam Respiratory Exam: Wheezes, NORMAL BREATHING PATTERN. absent: Rales, Rhonchi Additional comments: expiratory wheezing noted on left and right upper lobes. - Cardiovascular Exam Cardiovascular Exam: REGULAR RHYTHM. absent: Gallop, Rubs, Murmur - GI/Abdominal Exam GI & Abdominal Exam: Soft, Normal Bowel Sounds. absent: Distended, Guarding, Tenderness - Extremities Exam Extremities Exam: Full ROM, Normal Inspection. absent: Joint Swelling, Pedal Edema, Tenderness Additional comments: left forearm induration, nonpurulent, nonbloody, mild tenderness on palpation, not warm. - Back Exam Back Exam: NORMAL INSPECTION - Neurological Exam Neurological Exam: Alert, Awake, Oriented x3 - Psychiatric Exam Psychiatric exam: Normal Affect, Normal Mood - Skin Skin Exam: Dry, Intact, Normal Color Assessment and Plan - Assessment and Plan (Free Text) Plan: Bacteremia- Strep Constellatus/milleri - Afebrile overnight, stable - 11/21 WBC 4.9 - Repeat blood culture (11/21)-- No growth after 3 days - Blood culture (11/15): Strep constellatus/milleri sensitive to vancomycin - Urine Culture: clean catch, no growth - Sputum culture: few epithelial cells, few WBC, moderate gram positive cocci in clusters - CT Head to r/o abscess (known assoc with Strep constellatus/milleri) (11/18) no evidence of intracranial abscess. Mild chronic white matter ischemic change - Echo showed no vegetations -As per Cardio recs - Bacterial endocarditis unlikely given no history of risk factors, no visible vegetations on TTE. Will hold on VIDHYA unless further warranted. - Dr Parham ID specialist consulted - help is appreciated. F/U recs -Vanco 1gm in 200ml IVPB Q12- started 11/24/17 -Gentamycin 80mg IV q8hrs- started 11/17/17 -Piperacillin/tazobactam 3.375gm - started 11/21/17 - Tylenol 650mg Q6 PRN for fevers greater 100.4 - F/U am labs - continue monitoring temperature Right distal forearm cellulitis- resolving/improving - WBC: 4.9 - Continue abx as described above: -Vanco 1gm in 200ml IVPB Q12 -Gentamycin 80mg IV q8hrs- started 11/17/17 -Piperacillin/tazobactam 3.375gm - started 11/21/17 - keep monitoring am labs Chest Pain with negative cardio-pulmonary workup - Vitals stable. asymptomatic - Echocardiogram (11/17) LVEF 65-70%. LV systolic function is normal, mild mitral regurgitation, mild tricuspid regurg, mild pulm valvular regurg - ECHO done 05/2017 showed normal LVEF. - Continue monitor vitals and symptoms -Cardiac Cath (05/2017): No significant obstructions of the coronary arteries, single vessel CAD - Reviewing medical records, as per Online Marketing Director - multiple stress tests done with no findings, last cardiac cath was 05/2017 with no obstructive coronaries noted, single vessel CAD. - ОЛЕГ negative x3 - EKG NSR @ 96 BPM - repeat EKG: normal sinus rhythm, normal HR -Keep Monitoring vitals HTN - Continue Metoprolol 25mg BID, HCTZ 12.5mg daily - BP stable IGT - A1C 5.5 (09/2017) - Lipid panel WNL Hx CAD, Hx TX (07/2016) Hx TIAs - Continue ASA 81mg PO daily, Xarelto 20mg PO daily, Rosuvastatin 2.5mg PO daily Atrial Fibrillation - Continue Xarelto 20mg PO daily, Cardizem 30mg PO q6hrs, Digoxin 0.125mg PO daily - rate controlled -F/U cardio recs - Consider ablation procedure due to history of TIA and extensive family history Spinal stenosis - No intervention at this time - pain control prn- morphine 15 mg PO q12hrs (home med) COPD -Mild wheezing on upper lobes, bilaterally. Keep monitoring. -Consider CXray if wheezing continues or changes in WBC - Continue Advair 250/50 1puff inh q12hrs, Duonebs as needed PTSD/ Anxiety/ Depression - Continue Bupropion XL 150mg daily, Paxil 40mg daily Prophylactic Measures - GI PPX: Protonix 40mg PO daily - DVT PPX: Xarelto 20mg daily, SCDs - HHD - Dispo: PT consulted for possible cane on discharge Plan discussed with Dr. Rolf Black, PGY-1
--- NOTE | 2017-11-21 13:46 | CP.PCM.PN ---
Subjective - Date & Time of Evaluation Date of Evaluation: 11/21/17 Time of Evaluation: 01:30 - Subjective Subjective: dictated Objective - Vital Signs/Intake and Output Vital Signs (last 24 hours): Temp Pulse Resp BP Pulse Ox 97.6 F 70 20 110/67 97 11/21/17 07:00 11/21/17 07:00 11/21/17 07:00 11/21/17 09:52 11/21/17 07:00 Intake and Output: 11/21/17 11/21/17 06:59 18:59 Intake Total 1880 Output Total 1700 Balance 180 - Medications Medications: Current Medications Acetaminophen (Tylenol 325mg Tab) 650 mg PO Q6 PRN PRN Reason: Fever >100.4 F Last Admin: 11/15/17 17:05 Dose: 650 mg Alprazolam (Xanax) 0.5 mg PO HS PRN PRN Reason: Anxiety Last Admin: 11/20/17 22:34 Dose: 0.5 mg Aspirin (Ecotrin) 81 mg PO DAILY [facility] Last Admin: 11/21/17 09:53 Dose: 81 mg Bupropion HCl (Wellbutrin Xl) 150 mg PO DAILY [facility] Last Admin: 11/21/17 09:52 Dose: 150 mg Digoxin (Digoxin) 0.125 mg PO DAILY@1800 [facility] Last Admin: 11/20/17 18:01 Dose: 0.125 mg Diltiazem HCl (Cardizem) 30 mg PO Q6 [facility] Last Admin: 11/21/17 12:08 Dose: 30 mg Docusate Sodium (Colace) 100 mg PO TID [facility] Last Admin: 11/21/17 09:54 Dose: Not Given Gentamicin Sulfate 80 mg/ (Sodium Chloride) 102 mls @ 100 mls/hr IVPB Q8H [facility] PRN Reason: Protocol Last Admin: 11/21/17 05:10 Dose: 100 mls/hr Vancomycin/Sodium Chloride (Vancomycin 1 Gm/Ns 200 Ml) 1 gm in 200 mls @ 166.6 mls/hr IVPB Q12H [facility] PRN Reason: Protocol Stop: 11/24/17 16:01 Last Admin: 11/21/17 03:30 Dose: 166.6 mls/hr Lactated Ringer's (Lactated Ringer's) 1,000 mls @ 50 mls/hr IV .Q20H [facility] Last Admin: 11/21/17 05:16 Dose: 50 mls/hr Metoprolol Tartrate (Lopressor) 25 mg PO Q12 [facility] Last Admin: 11/21/17 09:52 Dose: 25 mg Morphine Sulfate (Morphine Extended Release Tab) 15 mg PO Q12 [facility] Stop: 11/23/17 15:00 Last Admin: 11/21/17 09:53 Dose: 15 mg Pantoprazole Sodium (Protonix Ec Tab) 40 mg PO DAILY [facility] Last Admin: 11/21/17 09:52 Dose: 40 mg Paroxetine HCl (Paxil) 40 mg PO DAILY [facility] Last Admin: 11/21/17 09:53 Dose: 40 mg Rivaroxaban (Xarelto) 20 mg PO DAILY [facility] Last Admin: 11/21/17 09:52 Dose: 20 mg Rosuvastatin Calcium (Crestor) 2.5 mg PO HS [facility] Last Admin: 11/20/17 21:35 Dose: 2.5 mg Fluticasone/Salmeterol (Advair Diskus 250/50) 1 puff INH RQ12 [facility] Last Admin: 11/21/17 09:40 Dose: 1 puff - Labs Labs: 11/21/17 07:36 11/21/17 07:37 PT 16.3 SECONDS (9.7-12.2) H 11/15/17 03:40 INR 1.5 11/15/17 03:40 APTT 33 SECONDS (21-34) 11/15/17 03:40
[2017-11-21] MEDS ORDERED: Piperacillin/Tazobact 3.375 GM in Sodium Chloride 100 ML IVPB SCH (14:00)
[2017-11-21] MEDS: Piperacillin/Tazobact 3.375 GM in Sodium Chloride 100 ML IVPB SCH (16:37)
[2017-11-21] MEDS: Digoxin 125 mcg (0.125 mg) Tab PO SCH (17:27)
[2017-11-21] MEDS: Rosuvastatin Calcium 2.5 mg Tab PO SCH (21:30)
[2017-11-22] MEDS: Piperacillin/Tazobact 3.375 GM in Sodium Chloride 100 ML IVPB SCH ×3 (00:33→15:00)
[2017-11-22] MEDS: Lactated Ringer's 1,000 ML IV SCH ×2 (02:15→14:59)
[2017-11-22] MEDS: Vancomycin 1 gm/NS 200 ml 1 GM/200 ML BAG IVPB SCH ×2 (04:31→16:39)
[2017-11-22] MEDS: Fluticasone-Salmeterol 250-50mcg Diskus INH SCH ×2 (07:37→19:40)
--- NOTE | 2017-11-22 08:35 | PN ---
DATE: 11/21/2017 SUBJECTIVE: The patient is very awake and alert. He appears to be in no acute distress. He still complains of forearm pain where he has a small tiny abscess, which appears not like, but this was from IV phlebitis, but at this time I also right lower jaw, he has a broken tooth, which is probably infected as one of his blood cultures came out positive for Peptostreptococcus and he also had strep constellatus milleri, which is and I am convinced about it and this is from a broken tooth he had a month ago he says and it still is half in, half out and he will need to see a dentist. He will also need a VIDHYA as he is hep C positive, I wanted to do HIV test to clear if he has the other viruses too and he has had osteomyelitis in the past. PHYSICAL EXAMINATION: VITAL SIGNS: On examination now, I find his temperature is 97.6, pulse 70, blood pressure is 130/82, respirations are 20. HEENT: Head is atraumatic. I did see in his mouth, a right, I think the first molar or the second molar is broken tooth and then there is a gap there and this appears to be infected. NECK: Supple. LUNGS: Clear. HEART: S1, S2 are regular. ABDOMEN: Soft, nontender. No guarding and no rigidity present at this time. EXTREMITIES: Have no edema. LABORATORY DATA: Labs are noted. Labs show white count is 4.9, hemoglobin 11.4, hematocrit 33.5, platelet count is 165, and since the cultures are negative, I would discontinue the gentamicin and keep him on vanco and Zosyn, but the vanco level was low, but he is on already 1 gm every 12 hours. I would like to repeat the vancomycin peak level again on the next dose. I will leave a note for that and the patient is on Xarelto for his atrial fib and he is and I did put him back on Zosyn again to cover for Peptostreptococcus because he needs anaerobic coverage at this time. MEDICATIONS: He is almost on six days into IV antibiotics at this time and we are planning possible VIDHYA to rule out endocarditis as he does have bacteria . We will follow. Faisal Russell MD [facility] # [phone]
[2017-11-22 08:54] LABS: EOS # 0.2 K/uL (0.0-0.7); LYMPH # 1.2 K/uL (1.0-4.3); LYMPH % 24.2 % (20.0-40.0); MEAN CELL VOLUME 89.4 fL (80.0-94.0); MEAN CORPUSCULAR HEMOGLOBIN 30.5 pg (27.0-31.0); MEAN CORPUSCULAR HGB CONC 34.1 g/dL (33.0-37.0); MEAN PLATELET VOLUME 7.5 fL (7.2-11.7); MONO # 0.6 K/uL (0.0-0.8); MONO % 12.2 % (0.0-10.0); NEUT # 2.8 K/uL (1.8-7.0); NEUT % 58.6 % (50.0-75.0); RBC 3.62 Mil/uL (4.40-5.90); WHITE BLOOD COUNT 4.8 K/uL (4.8-10.8)
[2017-11-22 09:13] LABS: ALB/GLOB RATIO 1.3 (1.0-2.1); ALBUMIN 3.8 g/dL (3.5-5.0); ALT/SGPT 46 U/L (21-72); AST/SGOT 38 U/L (17-59); BLOOD UREA NITROGEN 15 mg/dL (9-20); CALCIUM 9.2 mg/dl (8.6-10.4); GFR AFRICAN-AMERICAN > 60; GFR NON-AFRICAN AMERICAN > 60
[2017-11-22] MEDS: Pantoprazole 40 mg EC Tab PO SCH (09:25)
[2017-11-22] MEDS: Morphine 15 mg SR Tab PO SCH ×2 (09:25→21:43)
[2017-11-22] MEDS: buPROPion 150 mg/24 Hours XL Tab PO SCH (09:26)
--- NOTE | 2017-11-22 17:11 | CP.PCM.PN ---
<Reddy Black - Last Filed: 11/22/17 17:16> Subjective - Date & Time of Evaluation Date of Evaluation: 11/22/17 Time of Evaluation: 07:10 - Subjective Subjective: PGY-[address] Rolf Rico service Patient was seen and examined this morning. Did not have any acute concerns or complans. left arm pain has decreased. Patient denies fevers, chills. Patient will not need a VIDHYA as per cardiology recs. Possible DC tomorrow provided that the lab and vitals are stable and to continue PO antibiotics. Objective - Vital Signs/Intake and Output Vital Signs (last 24 hours): Temp Pulse Resp BP Pulse Ox 98.3 F 64 20 100/61 96 11/22/17 15:21 11/22/17 15:21 11/22/17 15:21 11/22/17 15:21 11/22/17 15:21 Intake and Output: 11/22/17 11/22/17 06:59 18:59 Intake Total 500 Output Total 800 Balance -300 - Medications Medications: Current Medications Acetaminophen (Tylenol 325mg Tab) 650 mg PO Q6 PRN PRN Reason: Fever >100.4 F Last Admin: 11/21/17 14:31 Dose: 650 mg Aspirin (Ecotrin) 81 mg PO DAILY [facility] Last Admin: 11/22/17 09:25 Dose: 81 mg Bupropion HCl (Wellbutrin Xl) 150 mg PO DAILY [facility] Last Admin: 11/22/17 09:26 Dose: 150 mg Digoxin (Digoxin) 0.125 mg PO DAILY@1800 [facility] Last Admin: 11/21/17 17:27 Dose: 0.125 mg Diltiazem HCl (Cardizem) 30 mg PO Q6 [facility] Last Admin: 11/22/17 12:41 Dose: 30 mg Docusate Sodium (Colace) 100 mg PO TID [facility] Last Admin: 11/22/17 13:19 Dose: Not Given Gentamicin Sulfate 80 mg/ (Sodium Chloride) 102 mls @ 100 mls/hr IVPB Q8H [facility] PRN Reason: Protocol Last Admin: 11/22/17 13:17 Dose: 100 mls/hr Vancomycin/Sodium Chloride (Vancomycin 1 Gm/Ns 200 Ml) 1 gm in 200 mls @ 166.6 mls/hr IVPB Q12H [facility] PRN Reason: Protocol Stop: 11/24/17 16:01 Last Admin: 11/22/17 16:39 Dose: 166.6 mls/hr Lactated Ringer's (Lactated Ringer's) 1,000 mls @ 50 mls/hr IV .Q20H [facility] Last Admin: 11/22/17 14:59 Dose: 50 mls/hr Piperacillin Sod/Tazobactam (Sod 3.375 gm/ Sodium Chloride) 100 mls @ 200 mls/ hr IVPB Q8H [facility] PRN Reason: Protocol Last Admin: 11/22/17 15:00 Dose: 200 mls/hr Metoprolol Tartrate (Lopressor) 25 mg PO Q12 [facility] Last Admin: 11/22/17 09:25 Dose: 25 mg Morphine Sulfate (Morphine Extended Release Tab) 15 mg PO Q12 [facility] Stop: 11/23/17 15:00 Last Admin: 11/22/17 09:25 Dose: 15 mg Pantoprazole Sodium (Protonix Ec Tab) 40 mg PO DAILY [facility] Last Admin: 11/22/17 09:25 Dose: 40 mg Paroxetine HCl (Paxil) 40 mg PO DAILY [facility] Last Admin: 11/22/17 09:25 Dose: 40 mg Rivaroxaban (Xarelto) 20 mg PO DAILY [facility] Last Admin: 11/22/17 09:26 Dose: 20 mg Rosuvastatin Calcium (Crestor) 2.5 mg PO HS [facility] Last Admin: 11/21/17 21:30 Dose: 2.5 mg Fluticasone/Salmeterol (Advair Diskus 250/50) 1 puff INH RQ12 [facility] Last Admin: 11/22/17 07:37 Dose: 1 puff - Labs Labs: 11/22/17 08:45 11/22/17 08:45 PT 16.3 SECONDS (9.7-12.2) H 11/15/17 03:40 INR 1.5 11/15/17 03:40 APTT 33 SECONDS (21-34) 11/15/17 03:40 - Constitutional Appears: Well, Non-toxic, No Acute Distress - Head Exam Head Exam: ATRAUMATIC, NORMAL INSPECTION, NORMOCEPHALIC - Eye Exam Eye Exam: EOMI, Normal appearance - ENT Exam ENT Exam: Mucous Membranes Moist - Neck Exam Neck Exam: Full ROM, Normal Inspection - Respiratory Exam Respiratory Exam: Wheezes Additional comments: Slight bilateral wheeze - Cardiovascular Exam Cardiovascular Exam: REGULAR RHYTHM, +S1, +S2 - GI/Abdominal Exam GI & Abdominal Exam: Soft, Normal Bowel Sounds. absent: Distended, Tenderness - Extremities Exam Extremities Exam: Full ROM. absent: Pedal Edema, Tenderness Additional comments: left forearm induration, resolved, not warm, clean, dry nonpurulent. - Back Exam Back Exam: NORMAL INSPECTION - Neurological Exam Neurological Exam: Alert, Awake, Oriented x3 - Psychiatric Exam Psychiatric exam: Normal Affect, Normal Mood - Skin Skin Exam: Intact, Normal Color, Warm Assessment and Plan - Assessment and Plan (Free Text) Plan: Bacteremia- Strep Constellatus/milleri - Afebrile overnight, stable - 11/22 WBC 4.8, afebrile - Cardiology will not perform a VIDHYA at this time. - Repeat blood culture (11/21)-- No growth after 4 days - Blood culture (11/15): Strep constellatus/milleri sensitive to vancomycin - Urine Culture: clean catch, no growth - Sputum culture: few epithelial cells, few WBC, moderate gram positive cocci in clusters - CT Head to r/o abscess (known assoc with Strep constellatus/milleri) (11/18) no evidence of intracranial abscess. Mild chronic white matter ischemic change - Echo showed no vegetations -As per Cardio recs - Bacterial endocarditis unlikely given no history of risk factors, no visible vegetations on TTE. Will hold on VIDHYA unless further warranted. - Dr Parham ID specialist consulted - help is appreciated. F/U recs -Vanco 1gm in 200ml IVPB Q12- started 11/24/17 -Gentamycin 80mg IV q8hrs- started 11/17/17 -Piperacillin/tazobactam 3.375gm - started 11/21/17 - Tylenol 650mg Q6 PRN for fevers greater 100.4 - F/U am labs - continue monitoring temperature Right distal forearm cellulitis- resolving/improving - WBC: WNL -less pain, no discomfort - Continue abx as described above: -Vanco 1gm in 200ml IVPB Q12 -Gentamycin 80mg IV q8hrs- started 11/17/17 -Piperacillin/tazobactam 3.375gm - started 7/23/18 - keep monitoring am labs Chest Pain with negative cardio-pulmonary workup - Vitals stable. asymptomatic - Echocardiogram (11/17) LVEF 65-70%. LV systolic function is normal, mild mitral regurgitation, mild tricuspid regurg, mild pulm valvular regurg - ECHO done 05/2017 showed normal LVEF. - Continue monitor vitals and symptoms -Cardiac Cath (05/2017): No significant obstructions of the coronary arteries, single vessel CAD - Reviewing medical records, as per [employer] - multiple stress tests done with no findings, last cardiac cath was 05/2017 with no obstructive coronaries noted, single vessel CAD. - ОЛЕГ negative x3 - EKG NSR @ 96 BPM - repeat EKG: normal sinus rhythm, normal HR -Keep Monitoring vitals HTN - Continue meds, SBP has been range of 100-120 range. -Continue Metoprolol 25mg BID, HCTZ 12.5mg daily - BP stable IGT - A1C 5.5 (09/2017) - Lipid panel WNL Hx CAD, Hx DC (07/2016) Hx TIAs - Continue ASA 81mg PO daily, Xarelto 20mg PO daily, Rosuvastatin 2.5mg PO daily Atrial Fibrillation - Continue Xarelto 20mg PO daily, Cardizem 30mg PO q6hrs, Digoxin 0.125mg PO daily - rate controlled -F/U cardio recs - Consider ablation procedure due to history of TIA and extensive family history Spinal stenosis - No intervention at this time - pain control prn- morphine 15 mg PO q12hrs (home med) COPD -Mild wheezing on upper lobes, bilaterally. Keep monitoring. -Consider CXray if wheezing continues or changes in WBC - Continue Advair 250/50 1puff inh q12hrs, Duonebs as needed PTSD/ Anxiety/ Depression - Continue Bupropion XL 150mg daily, Paxil 40mg daily Prophylactic Measures - GI PPX: Protonix 40mg PO daily - DVT PPX: Xarelto 20mg daily, SCDs - HHD - Dispo: PT consulted for possible cane on discharge Plan discussed with Dr. Rolf Black, PGY-1 Disposition: patient was seen and examined this morning. Did not have any acute concerns or complans. left arm pain has decreased. Patient denies fevers, chills. Patient will not need a VIDHYA as per cardiology recs. Possible DC tomorrow provided that the lab and vitals are stable and to continue PO antibiotics <Rolf Rico H - Last Filed: 11/22/17 18:08> Objective - Vital Signs/Intake and Output Vital Signs (last 24 hours): Temp Pulse Resp BP Pulse Ox 98.3 F 64 20 100/61 96 11/22/17 15:21 11/22/17 15:21 11/22/17 15:21 11/22/17 15:21 11/22/17 15:21 Intake and Output: 11/22/17 11/22/17 06:59 18:59 Intake Total 500 Output Total 800 Balance -300 - Medications Medications: Current Medications Acetaminophen (Tylenol 325mg Tab) 650 mg PO Q6 PRN PRN Reason: Fever >100.4 F Last Admin: 11/21/17 14:31 Dose: 650 mg Aspirin (Ecotrin) 81 mg PO DAILY [facility] Last Admin: 11/22/17 09:25 Dose: 81 mg Bupropion HCl (Wellbutrin Xl) 150 mg PO DAILY [facility] Last Admin: 11/22/17 09:26 Dose: 150 mg Digoxin (Digoxin) 0.125 mg PO DAILY@1800 [facility] Last Admin: 11/22/17 17:28 Dose: 0.125 mg Diltiazem HCl (Cardizem) 30 mg PO Q6 [facility] Last Admin: 11/22/17 17:31 Dose: Not Given Docusate Sodium (Colace) 100 mg PO TID [facility] Last Admin: 11/22/17 17:28 Dose: Not Given Gentamicin Sulfate 80 mg/ (Sodium Chloride) 102 mls @ 100 mls/hr IVPB Q8H [facility] PRN Reason: Protocol Last Admin: 11/22/17 13:17 Dose: 100 mls/hr Vancomycin/Sodium Chloride (Vancomycin 1 Gm/Ns 200 Ml) 1 gm in 200 mls @ 166.6 mls/hr IVPB Q12H [facility] PRN Reason: Protocol Stop: 11/24/17 16:01 Last Admin: 11/22/17 16:39 Dose: 166.6 mls/hr Piperacillin Sod/Tazobactam (Sod 3.375 gm/ Sodium Chloride) 100 mls @ 200 mls/ hr IVPB Q8H [facility] PRN Reason: Protocol Last Admin: 11/22/17 15:00 Dose: 200 mls/hr Metoprolol Tartrate (Lopressor) 25 mg PO Q12 [facility] Last Admin: 11/22/17 09:25 Dose: 25 mg Morphine Sulfate (Morphine Extended Release Tab) 15 mg PO Q12 [facility] Stop: 11/23/17 15:00 Last Admin: 11/22/17 09:25 Dose: 15 mg Pantoprazole Sodium (Protonix Ec Tab) 40 mg PO DAILY [facility] Last Admin: 11/22/17 09:25 Dose: 40 mg Paroxetine HCl (Paxil) 40 mg PO DAILY [facility] Last Admin: 11/22/17 09:25 Dose: 40 mg Rivaroxaban (Xarelto) 20 mg PO DAILY [facility] Last Admin: 11/22/17 09:26 Dose: 20 mg Rosuvastatin Calcium (Crestor) 2.5 mg PO HS [facility] Last Admin: 11/21/17 21:30 Dose: 2.5 mg Fluticasone/Salmeterol (Advair Diskus 250/50) 1 puff INH RQ12 [facility] Last Admin: 11/22/17 07:37 Dose: 1 puff - Labs Labs: 11/22/17 08:45 11/22/17 08:45 PT 16.3 SECONDS (9.7-12.2) H 11/15/17 03:40 INR 1.5 11/15/17 03:40 APTT 33 SECONDS (21-34) 11/15/17 03:40 Attending/Attestation - Attestation I have personally seen and examined this patient.: Yes I have fully participated in the care of the patient.: Yes I have reviewed all pertinent clinical information, including history, physical exam and plan: Yes Notes (Text): Medical attending: Patient was seen and examined by me. Agree with the above note by the resident The patient was not in any acute distress. He denied fevers, denied chills, also reported the pain in his arms had decreased as well. Per cardiology patient will not need VIDHYA at this time. He remains on IV abx. The patient's repeat cultures have been negative If vital signs are stable and blood work remains stable, will consider DC possible tommorow. Rolf Rico
[2017-11-22] MEDS: Digoxin 125 mcg (0.125 mg) Tab PO SCH (17:28)
[2017-11-22 17:29] VITALS: PULSE 64
[2017-11-22] MEDS: Rosuvastatin Calcium 2.5 mg Tab PO SCH (21:43)
[2017-11-23] MEDS: Piperacillin/Tazobact 3.375 GM in Sodium Chloride 100 ML IVPB SCH ×2 (00:09→09:00)
[2017-11-23] MEDS: Vancomycin 1 gm/NS 200 ml 1 GM/200 ML BAG IVPB SCH (04:05)
[2017-11-23] MEDS: Fluticasone-Salmeterol 250-50mcg Diskus INH SCH (07:38)
[2017-11-23 08:18] VITALS: BP 125/76; PULSE 58; TEMP 97.8; O2SAT 98
[2017-11-23 08:25] LABS: BASO # 0.1 K/uL (0.0-0.2); BASO % 0.9 % (0.0-2.0); EOS # 0.2 K/uL (0.0-0.7); HEMOGLOBIN 11.6 g/dL (12.0-18.0); LYMPH # 1.7 K/uL (1.0-4.3); LYMPH % 27.2 % (20.0-40.0); MEAN CELL VOLUME 89.7 fL (80.0-94.0); MEAN CORPUSCULAR HEMOGLOBIN 30.3 pg (27.0-31.0); MEAN CORPUSCULAR HGB CONC 33.8 g/dL (33.0-37.0); MEAN PLATELET VOLUME 7.3 fL (7.2-11.7); MONO # 0.6 K/uL (0.0-0.8); MONO % 10.1 % (0.0-10.0); NEUT # 3.6 K/uL (1.8-7.0); NEUT % 57.8 % (50.0-75.0); NRBC % 0.1 % (0.0-2.0); RBC 3.83 Mil/uL (4.40-5.90); RED CELL DISTRIBUTION WIDTH 13.8 % (11.5-14.5); WHITE BLOOD COUNT 6.2 K/uL (4.8-10.8)
[2017-11-23 08:39] LABS: ALB/GLOB RATIO 1.3 (1.0-2.1); ALBUMIN 4.2 g/dL (3.5-5.0); ALT/SGPT 46 U/L (21-72); AST/SGOT 47 U/L (17-59); BLOOD UREA NITROGEN 17 mg/dL (9-20); CALCIUM 9.3 mg/dl (8.6-10.4); GFR AFRICAN-AMERICAN > 60; GFR NON-AFRICAN AMERICAN > 60
--- NOTE | 2017-11-23 09:22 | CP.PCM.PN ---
Subjective - Date & Time of Evaluation Date of Evaluation: 11/23/17 Time of Evaluation: 08:30 - Subjective Subjective: PGU-[address] Field Pt seen and examined at bedside. No acute events overnight. Pt complains of general fatigue, dizziness, chest tightness, and numbness/tingling in his left arm where there is a small abscess. Pt denies SOB, headache, nausea, vomiting. Objective - Vital Signs/Intake and Output Vital Signs (last 24 hours): Temp Pulse Resp BP Pulse Ox 97.8 F 58 L 20 125/76 98 11/23/17 07:00 11/23/17 07:00 11/23/17 07:00 11/23/17 07:00 11/23/17 07:00 Intake and Output: 11/23/17 11/23/17 06:59 18:59 Intake Total 1500 Output Total 1300 Balance 200 - Medications Medications: Current Medications Acetaminophen (Tylenol 325mg Tab) 650 mg PO Q6 PRN PRN Reason: Fever >100.4 F Last Admin: 11/21/17 14:31 Dose: 650 mg Alprazolam (Xanax) 0.5 mg PO HS PRN PRN Reason: Anxiety Aspirin (Ecotrin) 81 mg PO DAILY [facility] Last Admin: 11/22/17 09:25 Dose: 81 mg Bupropion HCl (Wellbutrin Xl) 150 mg PO DAILY [facility] Last Admin: 11/22/17 09:26 Dose: 150 mg Digoxin (Digoxin) 0.125 mg PO DAILY@1800 [facility] Last Admin: 11/22/17 17:28 Dose: 0.125 mg Diltiazem HCl (Cardizem) 30 mg PO Q6 [facility] Last Admin: 11/23/17 06:02 Dose: 30 mg Docusate Sodium (Colace) 100 mg PO TID [facility] Last Admin: 11/22/17 17:28 Dose: Not Given Gentamicin Sulfate 80 mg/ (Sodium Chloride) 102 mls @ 100 mls/hr IVPB Q8H [facility] PRN Reason: Protocol Last Admin: 11/23/17 06:02 Dose: 100 mls/hr Vancomycin/Sodium Chloride (Vancomycin 1 Gm/Ns 200 Ml) 1 gm in 200 mls @ 166.6 mls/hr IVPB Q12H [facility] PRN Reason: Protocol Stop: 11/24/17 16:01 Last Admin: 11/23/17 04:05 Dose: 166.6 mls/hr Piperacillin Sod/Tazobactam (Sod 3.375 gm/ Sodium Chloride) 100 mls @ 200 mls/ hr IVPB Q8H [facility] PRN Reason: Protocol Last Admin: 11/23/17 00:09 Dose: 200 mls/hr Metoprolol Tartrate (Lopressor) 25 mg PO Q12 [facility] Last Admin: 11/22/17 21:44 Dose: 25 mg Morphine Sulfate (Morphine Extended Release Tab) 15 mg PO Q12 [facility] Stop: 11/23/17 15:00 Last Admin: 11/22/17 21:43 Dose: 15 mg Pantoprazole Sodium (Protonix Ec Tab) 40 mg PO DAILY [facility] Last Admin: 11/22/17 09:25 Dose: 40 mg Paroxetine HCl (Paxil) 40 mg PO DAILY [facility] Last Admin: 11/22/17 09:25 Dose: 40 mg Rivaroxaban (Xarelto) 20 mg PO DAILY [facility] Last Admin: 11/22/17 09:26 Dose: 20 mg Rosuvastatin Calcium (Crestor) 2.5 mg PO HS [facility] Last Admin: 11/22/17 21:43 Dose: 2.5 mg Fluticasone/Salmeterol (Advair Diskus 250/50) 1 puff INH RQ12 [facility] Last Admin: 11/23/17 07:38 Dose: 1 puff - Labs Labs: 11/23/17 08:11 11/23/17 08:11 PT 16.3 SECONDS (9.7-12.2) H 11/15/17 03:40 INR 1.5 11/15/17 03:40 APTT 33 SECONDS (21-34) 11/15/17 03:40 - Constitutional Appears: Well, No Acute Distress - Head Exam Head Exam: NORMAL INSPECTION, NORMOCEPHALIC - Eye Exam Eye Exam: EOMI, Normal appearance, PERRL - ENT Exam ENT Exam: Mucous Membranes Moist - Respiratory Exam Respiratory Exam: Clear to Ausculation Bilateral. absent: Rales, Rhonchi, Wheezes - Cardiovascular Exam Cardiovascular Exam: REGULAR RHYTHM, +S1, +S2 - Extremities Exam Extremities Exam: absent: Pedal Edema - Neurological Exam Neurological Exam: Alert, Awake, CN II-XII Intact Assessment and Plan (1) Chest discomfort Assessment & Plan: EKG 11/15: NSR, no ST or T changes Cardiac Enzymes negative x3 (11/15) Echo 11/17: EF 60-70%, Mild MR, Mild tricuspid regurgitation, mild pulmonic regurgitation Cardiac Cath (05/2017): No significant obstructions of the coronary arteries, single vessel CAD Stress test vs Cath vs No intervention (?) Status: Acute (2) Atrial fibrillation Assessment & Plan: On DAPT (Aspirin, Xarelto) History of TIAs x2, most recent Jun 2016 History of carotid artery disease F/u outpt to consider ablation procedure due to history of TIA and extensive family history Status: Chronic (3) Hypertension Assessment & Plan: BP 125/76 Hx TIA and CAD Controlled on home meds, follow up at home with primary Status: Chronic (4) Bacteremia Assessment & Plan: On IV ABx (Vanc, Gentamycin) Cultures positive (11/15) growing Strep Constellatus/Milleri Cultures (11/18): No growth x4 days No visible vegetations on TTE. Consider VIDHYA to assess for possible endocarditis per ID recs Status: Acute
[2017-11-23] MEDS: Morphine 15 mg SR Tab PO SCH (10:43)
[2017-11-23] MEDS: Pantoprazole 40 mg EC Tab PO SCH (10:45)
[2017-11-23] MEDS: buPROPion 150 mg/24 Hours XL Tab PO SCH (10:45)
--- NOTE | 2017-11-23 14:42 | CP.PCM.DIS ---
<Reddy Black - Last Filed: 11/23/17 14:48> Provider - Provider Date of Admission: 11/15/17 04:44 Attending physician: Rolf Rico DO Time Spent in preparation of Discharge (in minutes): 45 Diagnosis - Discharge Diagnosis (1) Bacteremia Status: Acute Comment: Patient was on antibiotics due to blood culture growth of Strep constellatus/milleri. It is possible this is secondary due to dental work/issue , given Vanco, gentamycin and Zosyn. Underwent 2D echo. repeat cultures negative , he is afebrile and WBC is now decreased. Augmentin given for 5 days. Follow up [facility]. (2) Chest pain Status: Acute Comment: Patient has history of afib, currently rate control. troponin negative x3, repeat echo was stable. Patient claims that he was not using drugs. 2D echo with normal findings Hospital Course - Lab Results Lab Results: Micro Results 11/18/17 19:00 Blood-Venous Blood Culture - Preliminary NO GROWTH AFTER 4 DAYS 11/18/17 19:00 Blood-Venous Blood Culture - Preliminary NO GROWTH AFTER 4 DAYS 11/15/17 05:31 Blood-Venous Blood Culture - Final Peptostreptococcus Species 11/15/17 05:31 Blood-Venous Gram Stain - Final 11/15/17 17:42 Blood-Venous Blood Culture - Final NO GROWTH AFTER 5 DAYS 11/15/17 17:42 Blood-Venous Gram Stain - Final TEST NOT PERFORMED 11/15/17 17:42 Blood-Venous Blood Culture - Final Strep Constellatus/Milleri 11/15/17 17:42 Blood-Venous Gram Stain - Final 11/15/17 05:31 Blood-Venous S.aureus & Coag-Neg Staph PNA FISH - Final 11/15/17 05:31 Blood-Venous Blood Culture - Final Strep Constellatus/Milleri 11/15/17 05:31 Blood-Venous Gram Stain - Final 11/16/17 14:28 Sputum Gram Stain - Final 11/16/17 14:28 Sputum Sputum Culture - Final NORMAL ORAL FLORENTINO 11/15/17 06:15 Urine,Clean Catch Urine Culture - Final No Growth (<1,000 CFU/ML) Most Recent Lab Values WBC 6.2 K/uL (4.8-10.8) 11/23/17 08:11 RBC 3.83 Mil/uL (4.40-5.90) L 11/23/17 08:11 Hgb 11.6 g/dL (12.0-18.0) L 11/23/17 08:11 Hct 34.3 % (35.0-51.0) L 11/23/17 08:11 MCV 89.7 fL (80.0-94.0) 11/23/17 08:11 MCH 30.3 pg (27.0-31.0) 11/23/17 08:11 MCHC 33.8 g/dL (33.0-37.0) 11/23/17 08:11 RDW 13.8 % (11.5-14.5) 11/23/17 08:11 Plt Count 207 K/uL (130-400) 11/23/17 08:11 MPV 7.3 fL (7.2-11.7) 11/23/17 08:11 Neut % (Auto) 57.8 % (50.0-75.0) 11/23/17 08:11 Lymph % (Auto) 27.2 % (20.0-40.0) 11/23/17 08:11 Pratt % (Auto) 10.1 % (0.0-10.0) H 11/23/17 08:11 Eos % (Auto) 4.0 % (0.0-4.0) 11/23/17 08:11 Baso % (Auto) 0.9 % (0.0-2.0) 11/23/17 08:11 Neut # (Auto) 3.6 K/uL (1.8-7.0) 11/23/17 08:11 Lymph # (Auto) 1.7 K/uL (1.0-4.3) 11/23/17 08:11 Pratt # (Auto) 0.6 K/uL (0.0-0.8) 11/23/17 08:11 Eos # (Auto) 0.2 K/uL (0.0-0.7) 11/23/17 08:11 Baso # (Auto) 0.1 K/uL (0.0-0.2) 11/23/17 08:11 PT 16.3 SECONDS (9.7-12.2) H 11/15/17 03:40 INR 1.5 11/15/17 03:40 APTT 33 SECONDS (21-34) 11/15/17 03:40 pO2 38 mm/Hg (30-55) 11/15/17 04:00 VBG pH 7.44 (7.32-7.43) H 11/15/17 04:00 VBG pCO2 40 mmHg (40-60) 11/15/17 04:00 VBG HCO3 26.5 mmol/L 11/15/17 04:00 VBG Total CO2 28.4 mmol/L (22-28) H 11/15/17 04:00 VBG O2 Sat (Calc) 63.7 % (40-65) 11/15/17 04:00 VBG Base Excess 2.8 mmol/L (0.0-2.0) H 11/15/17 04:00 VBG Potassium 3.7 mmol/L (3.6-5.2) 11/15/17 04:00 Sodium 136.0 mmol/l (132-148) 11/15/17 04:00 Chloride 106.0 mmol/L (98-107) 11/15/17 04:00 Glucose 105 mg/dl (75-110) 11/15/17 04:00 Lactate 0.7 mmol/L (0.7-2.1) 11/15/17 04:00 Sodium 144 mmol/L (132-148) 11/23/17 08:11 Potassium 4.7 mmol/L (3.6-5.2) 11/23/17 08:11 Chloride 104 mmol/L (98-107) 11/23/17 08:11 Carbon Dioxide 28 mmol/L (22-30) 11/23/17 08:11 Anion Gap 16 (10-20) 11/23/17 08:11 BUN 17 mg/dL (9-20) 11/23/17 08:11 Creatinine 1.1 mg/dL (0.8-1.5) 11/23/17 08:11 Est GFR ( Amer) > 60 11/23/17 08:11 Est GFR (Non-Af Amer) > 60 11/23/17 08:11 POC Glucose (mg/dL) 85 mg/dL (65-110) 11/22/17 06:32 Random Glucose 85 mg/dL (75-110) 11/23/17 08:11 Calcium 9.3 mg/dl (8.6-10.4) 11/23/17 08:11 Phosphorus 4.5 mg/dL (2.5-4.5) 11/23/17 08:11 Magnesium 2.2 mg/dL (1.6-2.3) 11/23/17 08:11 Total Bilirubin 0.5 mg/dL (0.2-1.3) 11/23/17 08:11 AST 47 U/L (17-59) 11/23/17 08:11 ALT 46 U/L (21-72) 11/23/17 08:11 Alkaline Phosphatase 69 U/L (38-126) 11/23/17 08:11 Total Creatine Kinase 98 U/L (55-170) 11/15/17 19:35 CK-MB (Mass) < 0.22 ng/mL (0.0-3.38) 11/15/17 19:35 Troponin I < 0.0120 ng/mL (0.00-0.120) 11/15/17 19:35 Total Protein 7.5 g/dL (6.3-8.3) 11/23/17 08:11 Albumin 4.2 g/dL (3.5-5.0) 11/23/17 08:11 Globulin 3.3 gm/dL (2.2-3.9) 11/23/17 08:11 Albumin/Globulin Ratio 1.3 (1.0-2.1) 11/23/17 08:11 Venous Blood Potassium 3.7 mmol/L (3.6-5.2) 11/15/17 04:00 Urine Color Yellow (YELLOW) 11/15/17 06:15 Urine Clarity Clear (Clear) 11/15/17 06:15 Urine pH 6.0 (5.0-8.0) 11/15/17 06:15 Ur Specific Circle 1.017 (1.003-1.030) 11/15/17 06:15 Urine Protein Negative mg/dL (NEGATIVE) 11/15/17 06:15 Urine Glucose (UA) Normal mg/dL (Normal) 11/15/17 06:15 Urine Ketones Trace mg/dL (NEGATIVE) 11/15/17 06:15 Urine Blood Negative (NEGATIVE) 11/15/17 06:15 Urine Nitrate Negative (NEGATIVE) 11/15/17 06:15 Urine Bilirubin Negative (NEGATIVE) 11/15/17 06:15 Urine Urobilinogen Normal mg/dL (0.2-1.0) 11/15/17 06:15 Ur Leukocyte Esterase Neg Jeanie/uL (Negative) 11/15/17 06:15 Urine WBC (Auto) < 1 /hpf (0-5) 11/15/17 06:15 Urine RBC (Auto) 1 /hpf (0-3) 11/15/17 06:15 Ur Squamous Epith Cells < 1 /hpf (0-5) 11/15/17 06:15 Vancomycin Peak 21.5 ug/mL (30.0-40.0) L 11/20/17 21:44 Vancomycin Trough 10.8 ug/mL (5.0-10.0) H 11/20/17 15:03 HIV 1&2 Antibody Screen Negative (NEGATIVE) 11/22/17 08:45 - Hospital Course Hospital Course: This is a 62 year old male with HTN, CAD, IGT, Atrial Fibrillation on Xarelto, [place] (July 2016), TIAs x2 (Mar 2016 & Jun 2016) Carotid disease, COPD, Nephrolithiasis and untreated Hepatitis C who presents to the ED with chest pain that started 1am this morning. Patient reports he has sudden sharp, intermittent chest pain that radiated down his left arm, leaving it a tingling/ numb sensation. Admitted to feeling feverish, denied any diaphoresis, shortness of breath, or syncope. He admits he has had multiple episodes of this throughout the years. Patient follows up closely with the [facility] and Cardio and is compliant with all his medications. He admits to subjective fevers, productive cough x 3-4 days, and generalized weakness. Patient does not have air conditioning so has been residing in his apartment with outdoor temperatures of ~ 100. Denied any recent travel or sick contacts. He did not take any OTC medications. Denied any associated chills, headache, shortness of breath, abdominal pain, n/v/d/c, or urinary complaints. Reviewing medical records, as per Automotive Sales Representative - multiple stress tests done with no findings, last cardiac cath was 05/2017 with no obstructive coronaries noted, single vessel CAD. ECHO done 05/2017 showed normal LVEF. During hospital course, patient chest pain was assessed with ОЛЕГ x3, which came negative all three times. EKG was done, which showed EKG NSR @ 96 BPM, repeat EKG @ 7pm: normal sinus rhythm, normal HR. Multiple stress tests done in the past with no findings, last cardiac cath was 05/2017 with no obstructive coronaries noted, single vessel CAD. ECHO done 05/2017 showed normal LVEF. Echocardiogram (11/17) LVEF 65-70%. LV systolic function is normal, mild mitral regurgitation, mild tricuspid regurg, mild pulm valvular regurg. Patient was asymptomatic throughout hospital course. Patient had spiking fevers, SOB and cough with green sputum, and a right distal forarm cellulitis. Sputum culture was ordered, showing few epithelial cells, few WBC, moderate gram positive cocci in clusters. Blood culture (11/15): Strep constellatus/milleri sensitive to vancomycin. Repeat blood culture (11/21) showed no growth after 4 days. Urine Culture was done, clean catch, showed no growth. ID Dr Russell was consulted. Patient was given Vanco 1gm in 200ml IVPB Q12- started 11/24/17, Gentamycin 80mg IV q8hrs- started 11/17/17, Piperacillin/tazobactam 3.375gm - started 11/21/17. CT Head to r/o abscess (known assoc with Strep constellatus/milleri) (11/18) no evidence of intracranial abscess. Mild chronic white matter ischemic change. Echo showed no vegetations. As per Cardio recs - Bacterial endocarditis unlikely given no history of risk factors, no visible vegetations on TTE.VIDHYA was held as per cardiology recs, unless further warranted. Patient's history of hypertension was managed with home meds: Metoprolol 25mg BID, HCTZ 12.5mg daily. Patient's history of CAD, [place] and TIA was managed with home meds ASA 81mg PO daily, Xarelto 20mg PO daily, Rosuvastatin 2.5mg PO daily. Patient's history of afib was controlled with xarelto 20mg PO daily, Cardizem 30mg PO q6hrs, Digoxin 0.125mg PO daily. Patient was on tele during hospital stay. Patient's history of COPD was managed with Advair 250/50 1puff inh q12hrs. Patient is stable to discharge home as per Dr Rolf Rico. Patient is to follow up with Dr. Garrett at the [facility] within 10 days after discharge. Patient will take the following new medication: Augmentin 875mg 2 tablets a day by mouth for 5 days. Patient will resume his home medications. Patient was asked if he needed any prescriptions for his home medications, and patient stated he had medications at home. if symptoms worsen or recur, patient was instructed to come back to the ER. - Date & Time of H&P Date of H&P: 11/23/17 Time of H&P: 14:54 Discharge Exam - Head Exam Head Exam: NORMAL INSPECTION, NORMOCEPHALIC - Eye Exam Eye Exam: EOMI, Normal appearance - ENT Exam ENT Exam: Mucous Membranes Moist - Neck Exam Neck exam: Full Rom - Respiratory Exam Respiratory Exam: Clear to PA & Lateral, NORMAL BREATHING PATTERN. absent: Rales, Rhonchi, Wheezes - Cardiovascular Exam Cardiovascular Exam: REGULAR RHYTHM, +S1, +S2. absent: Diastolic murmur, Systolic Murmur - GI/Abdominal Exam GI & Abdominal Exam: Normal Bowel Sounds, Unremarkable. absent: Distended, Tenderness - Extremities Exam Additional comments: right forarm abscess, resolving, not tender, not warm, clean and dry, nonpurulent. - Back Exam Back exam: FULL ROM, NORMAL INSPECTION - Neurological Exam Neurological exam: Alert, CN II-XII Intact, Oriented x3 - Psychiatric Exam Psychiatric exam: Normal Affect, Normal Mood - Skin Skin Exam: Intact, Normal Color, Warm Discharge Plan - Discharge Medications Prescriptions: Amoxicillin/Clavulanate [Augmentin 875 MG-125 MG] 1 tab PO BID 5 Days #10 tab - Follow Up Plan Condition: FAIR Disposition: HOME/ ROUTINE Instructions: Heart Healthy Diet, Atrial Fibrillation (DC), COPD Including Emphysema (DC), Chest Pain (DC), Amoxicillin and Clavulanate Additional Instructions: Patient is stable to discharge home as per Dr Rolf Rico. Patient is to follow up with Dr. Garrett at the [facility] within 10 days after discharge. Patient will take the following new medication: Augmentin 875mg 2 tablets a day by mouth for 5 days. Patient will resume his home medications. if symptoms worsen or recur, please come back to the ER. Referrals: [facility] [Outside] <Rolf Rico - Last Filed: 11/23/17 17:47> Provider - Provider Date of Admission: 11/15/17 04:44 Attending physician: Rolf Rico DO Hospital Course - Lab Results Lab Results: Micro Results 11/18/17 19:00 Blood-Venous Blood Culture - Preliminary NO GROWTH AFTER 4 DAYS 11/18/17 19:00 Blood-Venous Blood Culture - Preliminary NO GROWTH AFTER 4 DAYS 11/15/17 05:31 Blood-Venous Blood Culture - Final Peptostreptococcus Species 11/15/17 05:31 Blood-Venous Gram Stain - Final 11/15/17 17:42 Blood-Venous Blood Culture - Final NO GROWTH AFTER 5 DAYS 11/15/17 17:42 Blood-Venous Gram Stain - Final TEST NOT PERFORMED 11/15/17 17:42 Blood-Venous Blood Culture - Final Strep Constellatus/Milleri 11/15/17 17:42 Blood-Venous Gram Stain - Final 11/15/17 05:31 Blood-Venous S.aureus & Coag-Neg Staph PNA FISH - Final 11/15/17 05:31 Blood-Venous Blood Culture - Final Strep Constellatus/Milleri 11/15/17 05:31 Blood-Venous Gram Stain - Final 11/16/17 14:28 Sputum Gram Stain - Final 11/16/17 14:28 Sputum Sputum Culture - Final NORMAL ORAL FLORENTINO 11/15/17 06:15 Urine,Clean Catch Urine Culture - Final No Growth (<1,000 CFU/ML) Most Recent Lab Values WBC 6.2 K/uL (4.8-10.8) 11/23/17 08:11 RBC 3.83 Mil/uL (4.40-5.90) L 11/23/17 08:11 Hgb 11.6 g/dL (12.0-18.0) L 11/23/17 08:11 Hct 34.3 % (35.0-51.0) L 11/23/17 08:11 MCV 89.7 fL (80.0-94.0) 11/23/17 08:11 MCH 30.3 pg (27.0-31.0) 11/23/17 08:11 MCHC 33.8 g/dL (33.0-37.0) 11/23/17 08:11 RDW 13.8 % (11.5-14.5) 11/23/17 08:11 Plt Count 207 K/uL (130-400) 11/23/17 08:11 MPV 7.3 fL (7.2-11.7) 11/23/17 08:11 Neut % (Auto) 57.8 % (50.0-75.0) 11/23/17 08:11 Lymph % (Auto) 27.2 % (20.0-40.0) 11/23/17 08:11 Pratt % (Auto) 10.1 % (0.0-10.0) H 11/23/17 08:11 Eos % (Auto) 4.0 % (0.0-4.0) 11/23/17 08:11 Baso % (Auto) 0.9 % (0.0-2.0) 11/23/17 08:11 Neut # (Auto) 3.6 K/uL (1.8-7.0) 11/23/17 08:11 Lymph # (Auto) 1.7 K/uL (1.0-4.3) 11/23/17 08:11 Pratt # (Auto) 0.6 K/uL (0.0-0.8) 11/23/17 08:11 Eos # (Auto) 0.2 K/uL (0.0-0.7) 11/23/17 08:11 Baso # (Auto) 0.1 K/uL (0.0-0.2) 11/23/17 08:11 PT 16.3 SECONDS (9.7-12.2) H 11/15/17 03:40 INR 1.5 11/15/17 03:40 APTT 33 SECONDS (21-34) 11/15/17 03:40 pO2 38 mm/Hg (30-55) 11/15/17 04:00 VBG pH 7.44 (7.32-7.43) H 11/15/17 04:00 VBG pCO2 40 mmHg (40-60) 11/15/17 04:00 VBG HCO3 26.5 mmol/L 11/15/17 04:00 VBG Total CO2 28.4 mmol/L (22-28) H 11/15/17 04:00 VBG O2 Sat (Calc) 63.7 % (40-65) 11/15/17 04:00 VBG Base Excess 2.8 mmol/L (0.0-2.0) H 11/15/17 04:00 VBG Potassium 3.7 mmol/L (3.6-5.2) 11/15/17 04:00 Sodium 136.0 mmol/l (132-148) 11/15/17 04:00 Chloride 106.0 mmol/L (98-107) 11/15/17 04:00 Glucose 105 mg/dl (75-110) 11/15/17 04:00 Lactate 0.7 mmol/L (0.7-2.1) 11/15/17 04:00 Sodium 144 mmol/L (132-148) 11/23/17 08:11 Potassium 4.7 mmol/L (3.6-5.2) 11/23/17 08:11 Chloride 104 mmol/L (98-107) 11/23/17 08:11 Carbon Dioxide 28 mmol/L (22-30) 11/23/17 08:11 Anion Gap 16 (10-20) 11/23/17 08:11 BUN 17 mg/dL (9-20) 11/23/17 08:11 Creatinine 1.1 mg/dL (0.8-1.5) 11/23/17 08:11 Est GFR ( Amer) > 60 11/23/17 08:11 Est GFR (Non-Af Amer) > 60 11/23/17 08:11 POC Glucose (mg/dL) 85 mg/dL (65-110) 11/22/17 06:32 Random Glucose 85 mg/dL (75-110) 11/23/17 08:11 Calcium 9.3 mg/dl (8.6-10.4) 11/23/17 08:11 Phosphorus 4.5 mg/dL (2.5-4.5) 11/23/17 08:11 Magnesium 2.2 mg/dL (1.6-2.3) 11/23/17 08:11 Total Bilirubin 0.5 mg/dL (0.2-1.3) 11/23/17 08:11 AST 47 U/L (17-59) 11/23/17 08:11 ALT 46 U/L (21-72) 11/23/17 08:11 Alkaline Phosphatase 69 U/L (38-126) 11/23/17 08:11 Total Creatine Kinase 98 U/L (55-170) 11/15/17 19:35 CK-MB (Mass) < 0.22 ng/mL (0.0-3.38) 11/15/17 19:35 Troponin I < 0.0120 ng/mL (0.00-0.120) 11/15/17 19:35 Total Protein 7.5 g/dL (6.3-8.3) 11/23/17 08:11 Albumin 4.2 g/dL (3.5-5.0) 11/23/17 08:11 Globulin 3.3 gm/dL (2.2-3.9) 11/23/17 08:11 Albumin/Globulin Ratio 1.3 (1.0-2.1) 11/23/17 08:11 Venous Blood Potassium 3.7 mmol/L (3.6-5.2) 11/15/17 04:00 Urine Color Yellow (YELLOW) 11/15/17 06:15 Urine Clarity Clear (Clear) 11/15/17 06:15 Urine pH 6.0 (5.0-8.0) 11/15/17 06:[address] Circle 1.017 (1.003-1.030) 11/15/17 06:15 Urine Protein Negative mg/dL (NEGATIVE) 11/15/17 06:15 Urine Glucose (UA) Normal mg/dL (Normal) 11/15/17 06:15 Urine Ketones Trace mg/dL (NEGATIVE) 11/15/17 06:15 Urine Blood Negative (NEGATIVE) 11/15/17 06:15 Urine Nitrate Negative (NEGATIVE) 11/15/17 06:15 Urine Bilirubin Negative (NEGATIVE) 11/15/17 06:15 Urine Urobilinogen Normal mg/dL (0.2-1.0) 11/15/17 06:15 Ur Leukocyte Esterase Neg Jeanie/uL (Negative) 11/15/17 06:15 Urine WBC (Auto) < 1 /hpf (0-5) 11/15/17 06:15 Urine RBC (Auto) 1 /hpf (0-3) 11/15/17 06:15 Ur Squamous Epith Cells < 1 /hpf (0-5) 11/15/17 06:15 Vancomycin Peak 21.5 ug/mL (30.0-40.0) L 11/20/17 21:44 Vancomycin Trough 10.8 ug/mL (5.0-10.0) H 11/20/17 15:03 HIV 1&2 Antibody Screen Negative (NEGATIVE) 11/22/17 08:45 Attending/Attestation - Attestation I have personally seen and examined this patient.: Yes I have fully participated in the care of the patient.: Yes I have reviewed all pertinent clinical information, including history, physical exam and plan: Yes Notes (Text): 11/23/17 17:44 Medical attending: Patient was seen and examined by me. Agree with the above note by the resident Patient will need to follow up with the [facility]. Continue with PO abx as prescribed He has been afebrile, repeat blood cultures have been negative, and WBC stable. He did have an echo, this was negative. Cardiology felt that patient did not need a VIDHYA. When we asked him if he needed refills on his homed medications he said he did not Rolf Rico
== END 2017-11-23 14:14 | disposition home or self-care (01) | DRG 423 ==
LOC: C.ER 02:58 → C.9E 04:44 → C.6T 06:47
PROVIDERS: ADMIT Hospitalist; ATTEND Hospitalist
DX: R78.81 Bacteremia (principal); I80.8 Phlebitis and thrombophlebitis of other sites; L03.114 Cellulitis of left upper limb; L03.113 Cellulitis of right upper limb; I25.10 Atherosclerotic heart disease of native coronary artery without angina pectoris; I11.0 Hypertensive heart disease with heart failure; I37.1 Nonrheumatic pulmonary valve insufficiency; I50.9 Heart failure, unspecified; J44.9 Chronic obstructive pulmonary disease, unspecified; I48.91 Unspecified atrial fibrillation; K21.9 Gastro-esophageal reflux disease without esophagitis; B95.4 Other streptococcus as the cause of diseases classified elsewhere; N20.0 Calculus of kidney; Z79.82 Long term (current) use of aspirin; Z79.01 Long term (current) use of anticoagulants; I25.2 Old myocardial infarction; Z86.73 Personal history of transient ischemic attack (TIA), and cerebral infarction without residual deficits

== ENCOUNTER 2017-12-21 15:18 | Emergency (ER) | payer MEDICAID ==
[2017-12-21 15:18] VITALS: PULSE 64; BMI 25.3
[2017-12-21 15:29] VITALS: PULSE 71
--- NOTE | 2017-12-21 15:47 | C.PDOC ---
History Of Present Illness 62 year old male presents to the ER with a complaint of recurrent chest pain for the past hour. Patient was admitted in 10/2017 for the same complaint and states the pain feels similar to prior. Patient has nitro at home but does not use it as it triggers his migraines and takes a baby aspirin regularly. Patient has a Hx of chronic memory loss, he forgot to take his routine medications today but is otherwise complaint. Denies fever, chills, nausea, or vomiting. 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 ECHO done 05/2017 showed normal LVEF. Time Seen by Provider: 12/21/17 15:35 Chief Complaint (Nursing): Chest Pain History Per: Patient History/Exam Limitations: no limitations Onset/Duration Of Symptoms: Hrs Current Symptoms Are (Timing): Still Present Associated Symptoms: denies: Nausea, Dyspnea Modifying Factors: None Exacerbating Factors: None Alleviating Factors: None Recent travel outside of the [place]: No Past Medical History Reviewed: Historical Data, Nursing Documentation, Vital Signs Vital Signs: Last Vital Signs Temp 98.2 F 12/21/17 15:25 Pulse 71 12/21/17 15:25 Resp 20 12/21/17 15:25 BP 123/73 12/21/17 15:25 Pulse Ox 97 12/21/17 18:06 - Medical History PMH: Anxiety, Arthritis, Asthma, Atrial Fibrillation, Back Problems, Bipolar Disorder, CAD, Cardia Arrhythmia, COPD, CVA, Depression, Hepatitis, HTN, Post Traumatic Stress Disorder (1985 of 2 y/o daughter), TIA (March 2016/ JUN 2016) Denies: Diabetes, HIV, Chronic Kidney Disease, Seizures, Sexually Transmitted Disease Surgical History: Appendectomy, Tonsillectomy Denies: [facility] DILATION OF RIGHT URETER WITH INTRALUMINAL DEVICE, ENDO (11/17/16) DX ULTRASOUND-HEART (05/05/14) FLUOROSCOPY OF KIDNEY, URETER & BLADDER USING OTH CONTRAST (11/17/16) INSERTION OF INFUSION DEV INTO SUP VENA CAVA, PERC APPROACH (07/09/15) MEASURE OF CARDIAC SAMPL & PRESSURE, L HEART, PERC APPROACH (05/14/17) PERCUTANEOUS ABDOMINAL DRAINAGE (05/05/14) PLAIN RADIOGRAPHY OF LEFT HEART USING OTHER CONTRAST (05/14/17) REMOVAL OF INTRALUMINAL DEVICE FROM URETER, ENDO (12/15/16) ULTRASONOGRAPHY OF RIGHT AND LEFT HEART, TRANSESOPHAGEAL (07/09/15) VENOUS CATHETERIZATION NEC (05/05/14) Family History: States: Unknown Family Hx - Social History Hx Tobacco Use: Yes (1ppd from ages [age] ) Hx Alcohol Use: No Hx Substance Use: No - Immunization History Hx Tetanus Toxoid Vaccination: Yes Hx Influenza Vaccination: Yes (2016) Hx Pneumococcal Vaccination: Yes (2014) Review Of Systems Except As Marked, All Systems Reviewed And Found Negative. Constitutional: Negative for: Fever, Chills Cardiovascular: Positive for: Chest Pain Respiratory: Negative for: Shortness of Breath Gastrointestinal: Negative for: Nausea, Vomiting Physical Exam - Physical Exam Appears: Non-toxic Skin: Normal Color, Warm, Dry Head: Atraumatic, Normacephalic Eye(s): bilateral: Normal Inspection Oral Mucosa: Moist Chest: Symmetrical, No Tenderness Cardiovascular: Rhythm Regular Respiratory: Normal Breath Sounds, No Rales, No Rhonchi, No Wheezing Gastrointestinal/Abdominal: Soft, No Tenderness Back: No CVA Tenderness Neurological/Psych: Oriented x3, Normal Speech ED Course And Treatment - Laboratory Results Result Diagrams: 12/21/17 16:24 12/21/17 16:24 ECG: Interpreted By Me, Viewed By Me ECG Rhythm: Sinus Rhythm ECG Interpretation: Normal Rate From EC O2 Sat by Pulse Oximetry: 97 (Room air) Pulse Ox Interpretation: Normal Progress - Re-Evaluation Re-evaluation Note: 12/21/17 17:55 PT MAKING MULTIPLE REQUESTS FOR NARC DOSING D/W DR Elgin PRECIADO, IS WELL KNOWN TO [facility]. KNOWN DRUG SEEKING BEHAVIOR, DIFFICULTY W PRIOR DISCHARGES DUE TO PT REQUESTING IV ONLY NARCOTIC RX. PT PREVIOUSLY ABUSIVE TO ADMISSION TEAM ON PRIOR ADMISSION. STATES TO ADMIT DR MITA CAMPOS. PT ADVISED WILL NOT BE RECEIVING NARCOTIC RX. PT IMMEDIATELY ANGRY AND STATING "I REMEMBER HOW YOU DIDN'T GIVE ME DRUGS LAST TIME". 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 PT ADVISED CAN TAKE HIS OWN PRESCRIBED MEDS NEEDED. PT AWARE , AGREES TO ADMISSION FOR CHEST PAIN EVALUATION. 12/21/17 18:31 advised by RN patient refused to sign admission and walked out of ER. - Data Reviewed Data Reviewed: Lab, Diagnostic imaging, EKG, Old records Medical Decision Making Medical Decision Making: Plan: * EKG * Blood work * CRX * Aspirin * Nitrostat * Tylenol Disposition Counseled Patient/Family Regarding: Studies Performed, Diagnosis - Disposition Disposition: ELOPEMENT - ER ONLY Disposition Time: 18:32 Condition: STABLE - POA Present On Arrival: None - Clinical Impression Clinical Impression: Chest pain, Chronic pain - Scribe Statement The provider has reviewed the documentation as recorded by the Scribe Eric Samuels All medical record entries made by the Scribe were at my direction and personally dictated by me. I have reviewed the chart and agree that the record accurately reflects my personal performance of the history, physical exam, medical decision making, and the department course for this patient. I have also personally directed, reviewed, and agree with the discharge instructions and disposition. Decision To Admit - Pt Status Changed To: Hospital Disposition Of: Observation - . Bed Request Type: Telemetry Admitting Physician: Baltazar Caballero Patient Diagnosis: Chest pain, Chronic pain
[2017-12-21] MEDS ORDERED: Aspirin 325 mg EC Tablets PO STA (16:00)
[2017-12-21] MEDS ORDERED: Aspirin 325 mg EC Tablets PO ONE (16:21)
[2017-12-21 16:29] LABS: BASO % 0.7 % (0.0-2.0); EOS # 0.1 K/uL (0.0-0.7); HEMOGLOBIN 11.7 g/dL (12.0-18.0); LYMPH # 1.5 K/uL (1.0-4.3); LYMPH % 27.4 % (20.0-40.0); MEAN CELL VOLUME 89.2 fL (80.0-94.0); MEAN CORPUSCULAR HEMOGLOBIN 30.6 pg (27.0-31.0); MEAN CORPUSCULAR HGB CONC 34.3 g/dL (33.0-37.0); MEAN PLATELET VOLUME 7.3 fL (7.2-11.7); MONO # 0.6 K/uL (0.0-0.8); NEUT # 3.1 K/uL (1.8-7.0); NEUT % 57.9 % (50.0-75.0); RBC 3.83 Mil/uL (4.40-5.90); RED CELL DISTRIBUTION WIDTH 13.4 % (11.5-14.5); WHITE BLOOD COUNT 5.3 K/uL (4.8-10.8)
[2017-12-21 16:49] LABS: ALB/GLOB RATIO 1.3 (1.0-2.1); ALBUMIN 4.2 g/dL (3.5-5.0); ALT/SGPT 38 U/L (21-72); AST/SGOT 34 U/L (17-59); BLOOD UREA NITROGEN 15 mg/dL (9-20); CALCIUM 9.6 mg/dl (8.6-10.4); GFR NON-AFRICAN AMERICAN > 60
--- NOTE | 2017-12-21 16:51 | RAD ---
HISTORY: chest pain COMPARISON: Chest x-ray performed 11/15/17 TECHNIQUE: Chest, one view. FINDINGS: Examination limited by habitus and patient obliquity. LUNGS: Mild left basilar atelectasis. Biapical pleural thickening. No focal consolidation. Please note that chest x-ray has limited sensitivity for the detection of pulmonary masses. PLEURA: No significant pleural effusion identified. No definite pneumothorax . CARDIOVASCULAR: Borderline cardiomegaly. Ectatic aorta. Atherosclerotic calcifications of the aorta. OSSEOUS STRUCTURES: Degenerative changes of the spine. VISUALIZED UPPER ABDOMEN: Unremarkable. OTHER FINDINGS: None. IMPRESSION: Mild left basilar atelectasis. Biapical pleural thickening. Borderline cardiomegaly. Atherosclerotic calcifications. Ectatic aorta.
[2017-12-21 18:32] VITALS: BP 126/82; RESP 13; TEMP 98.1; O2SAT 97
--- NOTE | 2017-12-24 22:08 | CARD ---
APPROVED REPORT Date of service: 12/21/2017 EKG Measurement Heart [id number] ID [id number] <Conclusion> Normal sinus rhythm Normal ECG
== END 2017-12-21 18:45 | disposition left against medical advice (07) ==
LOC: C.ER 15:18 → C.9E 18:05 → UNDOADMOB 18:05 → C.ER 18:45
DX: G89.29 Other chronic pain (principal); R07.9 Chest pain, unspecified

== ENCOUNTER 2018-01-12 15:16 | Emergency (ER) | payer MEDICAID ==
[2018-01-12 15:17] VITALS: PULSE 64; BMI 25.3
[2018-01-12 15:55] VITALS: BP 119/69; PULSE 66; RESP 16; TEMP 98; O2SAT 98
[2018-01-12] MEDS ORDERED: Oxycodone/Acetaminophen 5/325 mg Tab PO STA (16:01)
[2018-01-12] MEDS ORDERED: Oxycodone/Acetaminophen 5/325 mg Tab ONE (16:10)
--- NOTE | 2018-01-12 16:38 | RAD ---
PROCEDURE: Left Wrist Radiographs. HISTORY: pain s.p fall COMPARISON: None available. FINDINGS: BONES: No acute displaced fracture. JOINTS: No dislocation. SOFT TISSUES: Soft tissue swelling. No evidence of radiopaque foreign body OTHER FINDINGS: None. IMPRESSION: Soft tissue swelling. No acute displaced fracture, dislocation, or significant joint effusion identified. If symptoms persist, or if there is continued clinical concern, x-ray follow-up in 7-10 days should be considered.
--- NOTE | 2018-01-12 16:47 | C.PDOC ---
History Of Present Illness 62 year old male presents to the ED with complaints of left wrist pain since last night. States that he was standing on top of a wheelchair around 11:15pm, trying to fix a screw on the ceiling, when he lost balance and fell backwards. Patient admits he hit the back of his head/neck on his bed and tried to catch his fall, injuring the left wrist. There was no LOC. He took Motrin and then went to bed. Today patient awoke with worsened swelling and pain to left wrist. Time Seen by Provider: 01/12/18 15:55 Chief Complaint (Nursing): Upper Extremity Problem/Injury History Per: Patient History/Exam Limitations: no limitations Onset/Duration Of Symptoms: Days Current Symptoms Are (Timing): Still Present Past Medical History Reviewed: Historical Data, Nursing Documentation, Vital Signs Vital Signs: Last Vital Signs Temp 98 F 01/12/18 15:48 Pulse 66 01/12/18 15:48 Resp 16 01/12/18 15:48 BP 119/69 01/12/18 15:48 Pulse Ox 98 01/12/18 17:14 - Medical History PMH: Anxiety, Arthritis, Asthma, Atrial Fibrillation, Back Problems, Bipolar Disorder, CAD, Cardia Arrhythmia, COPD, CVA, Depression, Hepatitis, HTN, Post Traumatic Stress Disorder (1985 of 2 y/o daughter), TIA Denies: Diabetes, HIV, Chronic Kidney Disease, Seizures, Sexually Transmitted Disease Surgical History: Appendectomy, Tonsillectomy Denies: Carotid Endarterectomy - [facility] Procedures DILATION OF RIGHT URETER WITH INTRALUMINAL DEVICE, ENDO (11/17/16) DX ULTRASOUND-HEART (05/05/14) FLUOROSCOPY OF KIDNEY, URETER & BLADDER USING OTH CONTRAST (11/17/16) INSERTION OF INFUSION DEV INTO SUP VENA CAVA, PERC APPROACH (07/09/15) MEASURE OF CARDIAC SAMPL & PRESSURE, L HEART, PERC APPROACH (05/14/17) PERCUTANEOUS ABDOMINAL DRAINAGE (05/05/14) PLAIN RADIOGRAPHY OF LEFT HEART USING OTHER CONTRAST (05/14/17) REMOVAL OF INTRALUMINAL DEVICE FROM URETER, ENDO (12/15/16) ULTRASONOGRAPHY OF RIGHT AND LEFT HEART, TRANSESOPHAGEAL (07/09/15) VENOUS CATHETERIZATION NEC (05/05/14) Family History: States: Unknown Family Hx - Social History Hx Tobacco Use: Yes (1ppd from ages [age] ) Hx Alcohol Use: No Hx Substance Use: No - Immunization History Hx Tetanus Toxoid Vaccination: Yes Hx Influenza Vaccination: Yes Hx Pneumococcal Vaccination: No Review Of Systems Eyes: Negative for: Vision Change Cardiovascular: Negative for: Chest Pain Respiratory: Negative for: Shortness of Breath Gastrointestinal: Negative for: Nausea, Vomiting, Abdominal Pain Musculoskeletal: Positive for: Hand Pain (left wrist pain and swelling). Negative for: Neck Pain Neurological: Negative for: Weakness, Numbness, Incoordination, Change in Speech , Headache, Dizziness Physical Exam - Physical Exam Appears: Well, Non-toxic, No Acute Distress Skin: Warm, Dry, No Rash, No Ecchymosis Head: Atraumatic, Normacephalic, No Swelling (or hematoma), No Laceration Eye(s): bilateral: Normal Inspection, PERRL, EOMI Oral Mucosa: Moist Neck: Normal ROM, No Midline Cervical Tenderness, No Paracervical Tenderness, Supple Chest: Symmetrical Extremity: Tenderness (to radial aspect of left wrist), Capillary Refill (less than 2 sec), Swelling (to radial aspect of left wrist), Other (Limited ROM of wrist secondary to pain; full ROM of all digits) Pulses: Left Radial: Normal, Right Radial: Normal Neurological/Psych: Oriented x3, Normal Speech, Normal Motor, Normal Sensation ED Course And Treatment O2 Sat by Pulse Oximetry: 98 (RA) Pulse Ox Interpretation: Normal - Other Rad x-ray left wrist X-Ray: Viewed By Me, Read By Radiologist Interpretation: FINDINGS: BONES: No acute displaced fracture. JOINTS: No dislocation. SOFT TISSUES: Soft tissue swelling. No evidence of radiopaque foreign body. OTHER FINDINGS: None. IMPRESSION: Soft tissue swelling. No acute displaced fracture, dislocation, or significant joint effusion identified. If symptoms persist, or if there is continued clinical concern, x- ray follow-up in 7-10 days should be considered. Medical Decision Making Medical Decision Making: Impression: Left wrist injury status-post fall Plan: --Percocet 1 tab PO --Left wrist x-ray Progress/Updates: X-ray is negative for fracture. Discussed results with patient, and copy of report was provided. Velcro volar splint applied. On re-examination, patient is resting comfortably in no acute distress. Patient reports improvement of symptoms. Patient feels comfortable going home and will be discharged. Patient given follow up instructions. Instructed to return to ER if symptoms worsen or new symptoms arise. Disposition Counseled Patient/Family Regarding: Diagnosis, Need For Followup - Disposition Referrals: Trino Mendiola III, MD [Staff Provider] - Disposition: HOME/ ROUTINE Disposition Time: 16:46 Condition: STABLE Additional Instructions: Your x-ray was normal, no fracture. Please apply ice to area 15 minutes three times a day. Take Motrin as needed for pain every 6 hours, with food to not upset stomach. Follow up with orthopedic if pain persists over one week. Prescriptions: Ibuprofen [Motrin] 600 mg PO Q8 #30 tab Instructions: Contusion (DC) Forms: [employer] (Romanian) - POA Present On Arrival: Falls Or Trauma - Clinical Impression Clinical Impression: Contusion of wrist, left - PA / [employer] / Resident Statement MD/DO has reviewed & agrees with the documentation as recorded. - Scribe Statement The provider has reviewed the documentation as recorded by the Scribe (Kimberlyn Krishnamurthy) All medical record entries made by the Scribe were at my direction and personally dictated by me. I have reviewed the chart and agree that the record accurately reflects my personal performance of the history, physical exam, medical decision making, and the department course for this patient. I have also personally directed, reviewed, and agree with the discharge instructions and disposition.
== END 2018-01-12 17:15 | disposition home or self-care (01) ==
LOC: C.ER 15:16
DX: S60.212A Contusion of left wrist, initial encounter (principal); W05.0XXA Fall from non-moving wheelchair, initial encounter; I48.91 Unspecified atrial fibrillation; I25.10 Atherosclerotic heart disease of native coronary artery without angina pectoris; I10 Essential (primary) hypertension; J44.9 Chronic obstructive pulmonary disease, unspecified; Z87.891 Personal history of nicotine dependence

== ENCOUNTER 2018-03-14 13:33 | Observation (INO) | payer MEDICAID ==
[2018-03-14 13:33] VITALS: PULSE 64; BMI 26.0
[2018-03-14] MEDS ORDERED: Sodium Chloride 0.9% 500 ML IV ONE (15:22)
[2018-03-14] MEDS ORDERED: DiphenhydrAMINE 50 mg/ml Inj IVP STA (15:24)
--- NOTE | 2018-03-14 15:24 | C.PDOC ---
History Of Present Illness 63 y/o male presents to the ED complaining of persistent frontal headache bilaterally for 3 days. Associated with intermittent left-sided chest pain that sometimes radiates down the left arm, or feels numb/tingling down the left arm. Also reports mild blurry vision bilaterally. Patient has been taking Motrin without any relief of symptoms. PMHx is significant for A Fib, CAD, COPD, HTN, NC x2 and CVA x2. Otherwise he denies any dizziness, nausea, vomiting, abdominal pain, leg pain/swelling, fevers, or neck stiffness. Time Seen by Provider: 03/14/18 14:55 Chief Complaint (Nursing): Headache History Per: Patient History/Exam Limitations: no limitations Onset/Duration Of Symptoms: Days (x3) Current Symptoms Are (Timing): Still Present Past Medical History Reviewed: Historical Data, Nursing Documentation, Vital Signs Vital Signs: Last Vital Signs Temp 98.1 F 03/14/18 14:13 Pulse 60 03/14/18 14:13 Resp 20 03/14/18 14:13 BP 149/71 03/14/18 14:13 Pulse Ox 99 03/14/18 14:13 - Medical History PMH: Anxiety, Arthritis, Asthma, Atrial Fibrillation, Back Problems, Bipolar Disorder, CAD, Cardia Arrhythmia, COPD, CVA, Depression, Hepatitis, HTN, Post Traumatic Stress Disorder (1985 of 2 y/o daughter), TIA Denies: Diabetes, HIV, Chronic Kidney Disease, Seizures, Sexually Transmitted Disease Surgical History: Appendectomy, Tonsillectomy Denies: Carotid Endarterectomy - [facility] Procedures DILATION OF RIGHT URETER WITH INTRALUMINAL DEVICE, ENDO (11/17/16) DX ULTRASOUND-HEART (05/05/14) FLUOROSCOPY OF KIDNEY, URETER & BLADDER USING OTH CONTRAST (11/17/16) INSERTION OF INFUSION DEV INTO SUP VENA CAVA, PERC APPROACH (07/09/15) MEASURE OF CARDIAC SAMPL & PRESSURE, L HEART, PERC APPROACH (05/14/17) PERCUTANEOUS ABDOMINAL DRAINAGE (05/05/14) PLAIN RADIOGRAPHY OF LEFT HEART USING OTHER CONTRAST (05/14/17) REMOVAL OF INTRALUMINAL DEVICE FROM URETER, ENDO (12/15/16) ULTRASONOGRAPHY OF RIGHT AND LEFT HEART, TRANSESOPHAGEAL (07/09/15) VENOUS CATHETERIZATION NEC (05/05/14) Family History: States: Unknown Family Hx - Social History Hx Tobacco Use: Yes (1ppd from ages [age] ) Hx Alcohol Use: No Hx Substance Use: No - Immunization History Hx Tetanus Toxoid Vaccination: Yes Hx Influenza Vaccination: Yes Hx Pneumococcal Vaccination: No Review Of Systems Constitutional: Negative for: Fever, Chills Eyes: Positive for: Vision Change (blurry vision bilaterally) Cardiovascular: Positive for: Chest Pain (radiating down left arm, intermittent numbness/tingling). Negative for: Palpitations Respiratory: Negative for: Cough, Shortness of Breath Gastrointestinal: Negative for: Nausea, Vomiting, Diarrhea Neurological: Positive for: Numbness (left arm), Headache. Negative for: Change in Speech, Altered Mental Status, Dizziness Physical Exam - Physical Exam Appears: Non-toxic, In Acute Distress (mild painful distress) Skin: Warm, Dry Head: Atraumatic, Normacephalic Eye(s): bilateral: Normal Inspection, PERRL, EOMI Oral Mucosa: Moist Neck: Normal ROM, Supple Chest: Symmetrical, No Deformity, No Tenderness Cardiovascular: Rhythm Regular, No Murmur Respiratory: Normal Breath Sounds, No Rales, No Rhonchi, No Wheezing Gastrointestinal/Abdominal: Soft, No Tenderness, No Distention Extremity: Bilateral: Atraumatic, Normal Color And Temperature Pulses: Left Radial: Normal, Right Radial: Normal Neurological/Psych: Oriented x3, Normal Speech, Normal Motor, Normal Sensation ED Course And Treatment - Laboratory Results Result Diagrams: 03/14/18 15:42 03/14/18 15:42 ECG: Interpreted By Me, Viewed By Md ECG Rhythm: Sinus Bradycardia Interpretation Of ECG: normal axis, no acute ST or T wave changes Rate From EC O2 Sat by Pulse Oximetry: 99 (RA) Pulse Ox Interpretation: Normal - Other Rad CXR X-Ray: Read By Radiologist Interpretation: Biapical pleural thickening. Patchy hazy opacity in the right upper lobe, possibly atelectasis or infiltrate. Suggest chest PA and lateral or CT of the chest for further evaluation if indicated. Mild cardiomegaly. Prominence of the mediastinum may be related to aortic ectasia. Atherosclerotic calcification present. - CT Scan/US CT Head Other Rad Studies (CT/US): Read By Radiologist CT/US Interpretation: FINDINGS: HEMORRHAGE: No acute parenchymal, subarachnoid or extra-axial hemorrhage. BRAIN: Minimal chronic periventricular white matter ischemic changes are felt to be present. Few scattered tiny chronic appearing lacunar type infarcts.. No obvious parenchymal nor extra-axial mass or collection. Mild to moderate generalized volume loss. Mild vascular calcifications both carotid siphons. VENTRICLES: No obstructive hydrocephalus. CALVARIUM: No acute calvarial fractures. PARANASAL SINUSES: Round elliptical shaped osteoma seen within the anterior superior aspect left ethmoid air complex. Minimal mucosal thickening also seen within a few ethmoid air cells. e small focal area polypoid like mucosal thickening and or mucous retention cyst formation right chamber sphenoid sinus. MASTOID AIR CELLS: Unremarkable as visualized. No inflammatory changes. OTHER FINDINGS: None. IMPRESSION: No acute intracranial hemorrhage. Suspect minimal chronic periventricular white matter ischemic changes. Few scattered tiny chronic appearing lacunar type infarcts.. Mild generalized volume loss. Progress Note: Blood work sent to the lab. Administered IVF NS x 1 bolus, 8.5 mg IV Reglan, and 25 mg IV Benadryl. Chest x-ray taken. Awaiting CT Head. NIHSS Stroke Scale - Date/Time Evaluation Performed Date Performed: 03/14/18 Time Performed: 15:00 When Was NIHSS Performed: Baseline - How Severe is the Stoke Level of Consciousness: 0=Alert LOC to Questions: 0=Both comments correct LOC to commands: 0=Obeys both correctly Best Gaze: 0=Normal Visual: 0=No visual loss Facial: 0=Normal Motor Arm - Left: 0=No drift Motor Arm - Right: 0=No drift Motor Leg - Left: 0=No drift Motor Leg - Right: 0=No drift Limb Ataxia: 0=Absent Sensory: 0=Normal Best Language: 0=No aphasia Dysarthia: 0=Normal articulation Extinction & Inattention (Neglect): 0=Normal, no object Score: 0 rTPA Inclusion/Exclusion - Refusal of Treatment Patient Refused Treatment: No - Inclusion Criteria for Altepase Patient is 18 years or Older: Yes The Clinical Diagnosis of Ischemic Stroke That is Causing a Potentially Disabling Neurological Deficit: No Time of Onset is Well Established to be Less Than 270 Minute Before Treatment Would Begin: No Risk/Benefit Discussed With Patient/Family Member Present: No Disposition - Disposition Forms: [employer] (Romansh) - Scribe Statement The provider has reviewed the documentation as recorded by the Radha Krishnamurthy Provider Attestation: All medical record entries made by the Radha were at my direction and personally dictated by me. I have reviewed the chart and agree that the record accurately reflects my personal performance of the history, physical exam, medical decision making, and the department course for this patient. I have also personally directed, reviewed, and agree with the discharge instructions and disposition.
[2018-03-14 15:50] LABS: BASO % 0.8 % (0.0-2.0); EOS # 0.1 K/uL (0.0-0.7); EOS % 1.1 % (0.0-4.0); HEMOGLOBIN 10.9 g/dL (12.0-18.0); LYMPH # 1.6 K/uL (1.0-4.3); LYMPH % 33.4 % (20.0-40.0); MEAN CELL VOLUME 88.5 fL (80.0-94.0); MEAN CORPUSCULAR HEMOGLOBIN 29.3 pg (27.0-31.0); MEAN CORPUSCULAR HGB CONC 33.2 g/dL (33.0-37.0); MEAN PLATELET VOLUME 7.6 fL (7.2-11.7); MONO # 0.7 K/uL (0.0-0.8); MONO % 15.1 % (0.0-10.0); NEUT # 2.4 K/uL (1.8-7.0); NEUT % 49.6 % (50.0-75.0); RBC 3.73 Mil/uL (4.40-5.90); RED CELL DISTRIBUTION WIDTH 13.6 % (11.5-14.5); WHITE BLOOD COUNT 4.9 K/uL (4.8-10.8)
--- NOTE | 2018-03-14 15:59 | RAD ---
HISTORY: cp COMPARISON: Chest x-ray performed 12/21/17 TECHNIQUE: Chest, one view. FINDINGS: LUNGS: Biapical pleural thickening. Patchy hazy opacity in the right upper lobe, possibly atelectasis or infiltrate. PLEURA: No significant pleural effusion identified. No definite pneumothorax . CARDIOVASCULAR: Mild cardiomegaly. Prominence of the mediastinum may be related to aortic ectasia. Atherosclerotic calcification present. OSSEOUS STRUCTURES: Degenerative changes of the spine. VISUALIZED UPPER ABDOMEN: Unremarkable. OTHER FINDINGS: None. IMPRESSION: Biapical pleural thickening. Patchy hazy opacity in the right upper lobe, possibly atelectasis or infiltrate. Suggest chest PA and lateral or CT of the chest for further evaluation if indicated. Mild cardiomegaly. Prominence of the mediastinum may be related to aortic ectasia. Atherosclerotic calcification present.
[2018-03-14 16:01] LABS: INR 1.5; PROTHROMBIN TIME 16.9 SECONDS (9.7-12.2)
[2018-03-14 16:15] LABS: ALB/GLOB RATIO 1.5 (1.0-2.1); ALBUMIN 4.2 g/dL (3.5-5.0); ALT/SGPT 49 U/L (21-72); AST/SGOT 55 U/L (17-59); BLOOD UREA NITROGEN 16 mg/dL (9-20); CALCIUM 9.2 mg/dl (8.6-10.4); GFR NON-AFRICAN AMERICAN > 60
[2018-03-14] MEDS ORDERED: DiphenhydrAMINE 50 mg/ml Inj ONE (16:20)
[2018-03-14] MEDS ORDERED: Sodium Chloride 0.9% 250 ML IV ONE (16:20)
--- NOTE | 2018-03-14 16:24 | CT ---
Date of service: 03/14/2018 PROCEDURE: CT HEAD WITHOUT CONTRAST. HISTORY: headache, dizziness COMPARISON: Comparison made with prior CT scan 11/18/2017. TECHNIQUE: Axial computed tomography images were obtained through the head/brain without intravenous contrast. Radiation dose: Total exam DLP = 1097.29 mGy-cm. This CT exam was performed using one or more of the following dose reduction techniques: Automated exposure control, adjustment of the mA and/or kV according to patient size, and/or use of iterative reconstruction technique. FINDINGS: HEMORRHAGE: No acute parenchymal, subarachnoid or extra-axial hemorrhage. BRAIN: Minimal chronic periventricular white matter ischemic changes are felt to be present. Few scattered tiny chronic appearing lacunar type infarcts.. No obvious parenchymal nor extra-axial mass or collection. Mild to moderate generalized volume loss. Mild vascular calcifications both carotid siphons. VENTRICLES: No obstructive hydrocephalus. CALVARIUM: No acute calvarial fractures PARANASAL SINUSES: Round elliptical shaped osteoma seen within the anterior superior aspect left ethmoid air complex. Minimal mucosal thickening also seen within a few ethmoid air cells. e small focal area polypoid like mucosal thickening and or mucous retention cyst formation right chamber sphenoid sinus. MASTOID AIR CELLS: Unremarkable as visualized. No inflammatory changes. OTHER FINDINGS: None. IMPRESSION: No acute intracranial hemorrhage. Suspect minimal chronic periventricular white matter ischemic changes. Few scattered tiny chronic appearing lacunar type infarcts.. Mild generalized volume loss.
[2018-03-14 16:34] LABS: CK-MB 1.08 ng/mL (0.0-3.38)
--- NOTE | 2018-03-14 20:27 | CP.PCM.HP ---
<Angie Ghosh P - Last Filed: 03/15/18 09:13> History of Present Illness - History of Present Illness History of Present Illness: CC: Headache and Chest Pain HPI: This is a 62 year old male with HTN, CAD, Atrial Fibrillation on Xarelto, [place] (July 2016), TIAs x2 (Mar 2016 & Jun 2016) Carotid disease, COPD, Nephrolithiasis and untreated Hepatitis C who presents to the ED with headache to bilateral temporal region and behind bilateral eyes that began 3 days ago. Pain is rated 10/10. It is associated with blurred vision bilaterally. States he has never had a headache like this before. Associated with photophobia and phonophobia. Patient also complains of intermittent L sided chest pain with numbness and tingling to L arm for the past 2 days. Episodes last 20 minutes and resolve on their own. He states pain is similar to previous [place]. Treatment with MS contin 15mg and Vicoprofen 7.5mg provided no improvement. Denied any recent travel or sick contacts. Denied any associated fever, diaphoresis, chills, shortness of breath, abdominal pain, n/v/d/c, or urinary complaints. Reviewing medical records, as per Career Manager - multiple stress tests done with no findings, last cardiac cath was 05/2017 with no obstructive coronaries noted, single vessel CAD. ECHO done 05/2017 showed normal LVEF. PMHx: Afib, CAD, [place] (July 2016), TIA x 2 (Mar 2016, Jun 2016), COPD, GERD, Panic disorder, Anxiety disorder, PTSD, Recent R rotator cuff tear that requires surgical repair, long standing cervical spinal stenosis s/p fall from 18ft tree branch while at work in 1999. PSHx: L knee patella fx (1981), Appy (childhood), 2 hernias (umbilical and inguinal in ) Meds: albuterol, Airduo 1puff Q12H, Omeprazole 40 QD, ASA 81 QD, Cardizem 30QID, [id number] daily, Xarelto 20mg Daily, Metoprolol 25Q12H, Simvastatin 10mg, Xanax 0.5HS PRN, paxil 40 daily, bupropion 50 daily, vicoprofen 7.5mg BID PRN and MS contin ER 15mg Q12H All: NKDA SHx: former smoker-1/2 ppd for 25 years, quit 1 year ago, denied any alcohol or illicit drug use. 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 FHx: Mother: of CHF at 76. Father: dementia and CVA. Brother #1 of CVA at 42, Brother #2 of [place] at 48, Sister of [place] at 46, sister of stroke, age not specified, Son of hirshsprung's disease during infancy PMD: Dr. Garrett Cardio: Dr. Charles Malcolm Review of Systems: -Gen: No fever, No chills,+ headache, No lethargy, No weakness. -HEENT: No dizziness, +blurred vision, No change in hearing, No sore throat, No dysphagia, No nasal congestion, No mucous. -Cardio: +chest pain, No palpitations, No lower extremity edema, No orthopnea. -Resp: No cough, No dyspnea, No hemoptysis, No wheezing, No pain on inspiration. -GI: No abdominal pain, No nausea/vomiting, No diarrhea/constipation, No hematochezia, No hematemesis. -: No dysuria, No urinary freq, No incontinence, No hematuria, No change in urinary stream. -MSK: No back pain, No muscle weakness, No radiating pain. -Skin: No itching, No rash, No lesions. -Neuro: No confusion, + numbness/ tingling L arm, No focal weakness, No radicular pain, No syncope. Present on Admission - Present on Admission Any Indicators Present on Admission: No Past Patient History - Infectious Disease Hx of Infectious Diseases: None - Tetanus Immunizations Tetanus Immunization: Unknown - Past Medical History & Family History Past Medical History?: Yes - Past Social History Smoking Status: Former Smoker - CARDIAC Hx Atrial Fibrillation: Yes Hx Cardia Arrhythmia: Yes Hx Hypertension: Yes - PULMONARY Hx Asthma: Yes Hx Chronic Obstructive Pulmonary Disease (COPD): Yes - NEUROLOGICAL Hx Seizures: No Hx Transient Ischemic Attacks (TIA): Yes - HEENT Hx HEENT Problems: Yes Hx Cataracts: Yes ("early stages" as per patient) - RENAL Hx Chronic Kidney Disease: No - ENDOCRINE/METABOLIC Hx Endocrine Disorders: No - HEMATOLOGICAL/ONCOLOGICAL Hx Human Immunodeficiency Virus (HIV): No - INTEGUMENTARY Hx Dermatological Problems: Yes Hx Psoriasis: Yes - MUSCULOSKELETAL/RHEUMATOLOGICAL Hx Arthritis: Yes - GASTROINTESTINAL Hx Gastrointestinal Disorders: No - GENITOURINARY/GYNECOLOGICAL Hx Sexually Transmitted Disorders: No - PSYCHIATRIC Hx Anxiety: Yes Hx Bipolar Disorder: Yes Hx Depression: Yes Hx Post Traumatic Stress Disorder: Yes (1985 of 2 y/o daughter) Hx Substance Use: No - SURGICAL HISTORY Hx Appendectomy: Yes Hx Carotid Endarterectomy: No Hx Tonsillectomy: Yes - ANESTHESIA Hx Anesthesia: Yes Hx Anesthesia Reactions: No Hx Malignant Hyperthermia: No Meds Allergies/Adverse Reactions: Allergies Allergy/AdvReac Type Severity Reaction Status Date / Time ketorolac [From Toradol] Allergy Verified 01/12/18 15:55 tramadol Allergy Verified 01/12/18 15:55 Physical Exam - Constitutional Appears: No Acute Distress - Head Exam Head Exam: ATRAUMATIC, NORMOCEPHALIC - Eye Exam Eye Exam: EOMI, PERRL - ENT Exam ENT Exam: Mucous Membranes Moist - Respiratory Exam Respiratory Exam: Clear to Auscultation Bilateral. absent: Rales, Rhonchi, Wheezes - Cardiovascular Exam Cardiovascular Exam: RRR, +S1, +S2 - GI/Abdominal Exam GI & Abdominal Exam: Normal Bowel Sounds, Soft. absent: Distended, Guarding, Rebound, Tenderness - Extremities Exam Extremities exam: Positive for: full ROM, normal capillary refill, normal inspection. Negative for: calf tenderness, tenderness - Neurological Exam Neurological exam: Alert, CN II-XII Intact, Motor Sensory Deficit (decreased sensation to L face in trigeminal nerve distribution), Oriented x3 - Psychiatric Exam Psychiatric exam: Normal Affect, Normal Mood - Skin Skin Exam: Dry, Intact, Normal Color Results - Vital Signs Recent Vital Signs: Last Vital Signs Temp 98.1 F 03/14/18 14:13 Pulse 59 L 03/14/18 16:28 Resp 18 03/14/18 16:28 BP 113/75 03/14/18 16:28 Pulse Ox 99 03/14/18 17:14 - Labs Result Diagrams: 03/15/18 06:46 03/15/18 06:46 Labs: Laboratory Results - last 24 hr 03/14/18 03/14/18 03/14/18 15:42 15:42 15:42 WBC 4.9 RBC 3.73 L Hgb 10.9 L Hct 33.0 L MCV 88.5 MCH 29.3 MCHC 33.2 RDW 13.6 Plt Count 159 MPV 7.6 Neut % (Auto) 49.6 L Lymph % (Auto) 33.4 Reeves % (Auto) 15.1 H Eos % (Auto) 1.1 Baso % (Auto) 0.8 Neut # (Auto) 2.4 Lymph # (Auto) 1.6 Reeves # (Auto) 0.7 Eos # (Auto) 0.1 Baso # (Auto) 0.0 PT 16.9 H INR 1.5 APTT 39 H Sodium 142 Potassium 4.4 Chloride 105 Carbon Dioxide 29 Anion Gap 13 BUN 16 Creatinine 0.7 L Est GFR ( Amer) > 60 Est GFR (Non-Af Amer) > 60 Random Glucose 88 Calcium 9.2 Total Bilirubin 0.5 AST 55 ALT 49 Alkaline Phosphatase 84 Total Creatine Kinase 57 CK-MB (Mass) 1.08 Troponin I < 0.0120 Total Protein 7.1 Albumin 4.2 Globulin 2.9 Albumin/Globulin Ratio 1.5 Assessment & Plan - Assessment and Plan (Free Text) Plan: Headache with blurred vision -CT head: No acute intracranial hemorrhage. Suspect minimal chronic periventricular white matter ischemic changes. Few scattered tiny chronic appearing lacunar type infarcts. -Continue home medication of MS Contin 15mg Q12H -Patient not to get any additional narcotics. -Stroke scale in ED, score of 0. Chest Pain r/o ACS - Reviewing medical records, as per Career Manager - multiple stress tests done with no findings, last cardiac cath was 05/2017 with no obstructive coronaries noted, single vessel CAD. ECHO done 05/2017 showed normal LVEF. - Closely follows in [facility] clinic and Career Manager - Dr. Charles Malcolm (through [facility]) - ОЛЕГ negative x2 - F/U serial ROMIs, EKGs - CXR: Biapical pleural thickening. Patchy hazy opacity in the right upper lobe, possibly atelectasis or infiltrate. Suggest chest PA and lateral or CT of the chest for further evaluation if indicated. Mild cardiomegaly. Prominence of the mediastinum may be related to aortic ectasia. Atherosclerotic calcification present. HTN - Continue Metoprolol 25mg BID IGT - A1C 5.5 (09/2017) -f/u hgb A1c Hx CAD Hx [place] (07/2016) Hx TIAs - Continue home medication of Aspirin 81mg PO daily, Xarelto 20mg daily, and Crestor 5mg HS (alternative for atorvastatin) Atrial Fibrillation - Continue Xarelto 20mg daily, Cardizem 30mg PO QID, Digoxin 0.125mcg daily COPD - Continue Albuterol HFA 2puffs Q6H PRN Spinal stenosis - Continue MS contin 15mg ER BID PTSD/ Anxiety/ Depression - Continue Bupropion XL 150mg daily, Paxil 40mg daily Hx Nephrolithiasis -asymptomatic -monitor outpatient Hx Untreated Hepatitis C - follow up outpatient Prophylactic Measures - DVT PPX: Xarelto 20mg daily, SCDs - HHD -Protonix 40mg <Sunny Tierney - Last Filed: 03/15/18 18:57> Results - Vital Signs Recent Vital Signs: Last Vital Signs Temp 97.5 F L 03/15/18 07:00 Pulse 67 03/15/18 07:53 Resp 20 03/15/18 07:00 BP 130/80 03/15/18 09:35 Pulse Ox 97 03/15/18 07:00 - Labs Result Diagrams: 03/15/18 06:46 03/15/18 06:46 Labs: Laboratory Results - last 24 hr 03/14/18 03/15/18 03/15/18 21:56 06:46 06:46 WBC 3.6 L RBC 3.49 L Hgb 10.4 L Hct 30.7 L MCV 88.2 MCH 29.8 MCHC 33.8 RDW 13.7 Plt Count 130 MPV 8.0 Neut % (Auto) 44.8 L Lymph % (Auto) 40.1 H Reeves % (Auto) 12.1 H Eos % (Auto) 2.2 Baso % (Auto) 0.8 Neut # (Auto) 1.6 L Lymph # (Auto) 1.4 Reeves # (Auto) 0.4 Eos # (Auto) 0.1 Baso # (Auto) 0.0 Sodium 140 Potassium 3.9 Chloride 108 H Carbon Dioxide 26 Anion Gap 10 BUN 13 Creatinine 0.7 L Est GFR ( Amer) > 60 Est GFR (Non-Af Amer) > 60 Random Glucose 99 Hemoglobin A1c Calcium 8.7 Phosphorus 2.9 Magnesium 2.0 Total Bilirubin 0.5 AST 47 ALT 48 Alkaline Phosphatase 64 Troponin I < 0.0120 Total Protein 6.1 L Albumin 3.4 L Globulin 2.7 Albumin/Globulin Ratio 1.3 Triglycerides 69 D Cholesterol 126 LDL Cholesterol Direct 75 HDL Cholesterol 49 TSH 3rd Generation 1.29 03/15/18 03/15/18 06:46 06:46 WBC RBC Hgb Hct MCV MCH MCHC RDW Plt Count MPV Neut % (Auto) Lymph % (Auto) Reeves % (Auto) Eos % (Auto) Baso % (Auto) Neut # (Auto) Lymph # (Auto) Reeves # (Auto) Eos # (Auto) Baso # (Auto) Sodium Potassium Chloride Carbon Dioxide Anion Gap BUN Creatinine Est GFR ( Amer) Est GFR (Non-Af Amer) Random Glucose Hemoglobin A1c 5.5 Calcium Phosphorus Magnesium Total Bilirubin AST ALT Alkaline Phosphatase Troponin I < 0.0120 Total Protein Albumin Globulin Albumin/Globulin Ratio Triglycerides Cholesterol LDL Cholesterol Direct HDL Cholesterol TSH 3rd Generation Assessment & Plan - Date & Time Date: 03/15/18 (I have seen and examined the patient. I agree with the findings and plan of care as documented by Dr. Ghosh. Patient with chest pain. ROMIx3 with EKG. Aspirin and Statin. Acute headache. CT head negative for acute process. History of spinal stenosis. Continue home pain med regimen. No additional opiates to be given. Monitor for acute changes.) Time: 18:56 Attending/Attestation - Attestation I have personally seen and examined this patient.: Yes I have fully participated in the care of the patient.: Yes I have reviewed all pertinent clinical information: Yes
[2018-03-14] MEDS: Morphine 15 mg SR Tab PO SCH (23:20)
[2018-03-14] MEDS ORDERED: Morphine 15 mg SR Tab PO ONE (23:29)
[2018-03-15 00:55] VITALS: RESP 20
[2018-03-15 07:15] LABS: EOS # 0.1 K/uL (0.0-0.7); HEMOGLOBIN 10.4 g/dL (12.0-18.0); MEAN CELL VOLUME 88.2 fL (80.0-94.0); NEUT # 1.6 K/uL (1.8-7.0)
[2018-03-15 07:19] LABS: LDL CHOLESTEROL 75 mg/dL (0-129)
[2018-03-15 07:30] LABS: ALB/GLOB RATIO 1.3 (1.0-2.1); ALBUMIN 3.4 g/dL (3.5-5.0); ALT/SGPT 48 U/L (21-72); AST/SGOT 47 U/L (17-59); BLOOD UREA NITROGEN 13 mg/dL (9-20); CALCIUM 8.7 mg/dl (8.6-10.4); GFR NON-AFRICAN AMERICAN > 60; HDL CHOLESTEROL 49 mg/dL (30-70)
[2018-03-15 07:34] LABS: BASO % 0.8 % (0.0-2.0); EOS % 2.2 % (0.0-4.0); LYMPH # 1.4 K/uL (1.0-4.3); LYMPH % 40.1 % (20.0-40.0); MEAN CORPUSCULAR HEMOGLOBIN 29.8 pg (27.0-31.0); MEAN CORPUSCULAR HGB CONC 33.8 g/dL (33.0-37.0); MONO # 0.4 K/uL (0.0-0.8); MONO % 12.1 % (0.0-10.0); NEUT % 44.8 % (50.0-75.0); NRBC % 0.5 % (0.0-2.0); RBC 3.49 Mil/uL (4.40-5.90); RED CELL DISTRIBUTION WIDTH 13.7 % (11.5-14.5); WHITE BLOOD COUNT 3.6 K/uL (4.8-10.8)
[2018-03-15 07:54] VITALS: PULSE 67
[2018-03-15 08:41] VITALS: BP 130/80; TEMP 97.5; O2SAT 97
[2018-03-15] MEDS ORDERED: Albuterol HFA 90 mcg/actuation (8 g) INH PRN (08:58)
--- NOTE | 2018-03-15 09:15 | CP.PCM.DIS ---
Provider - Provider Date of Admission: 03/14/18 18:15 Attending physician: Baltazar Caballero MD Time Spent in preparation of Discharge (in minutes): 45 Diagnosis - Discharge Diagnosis (1) Chest pain Status: Resolved (2) Headache Status: Resolved Priority: High Hospital Course - Lab Results Lab Results: Most Recent Lab Values WBC 3.6 K/uL (4.8-10.8) L 03/15/18 06:46 RBC 3.49 Mil/uL (4.40-5.90) L 03/15/18 06:46 Hgb 10.4 g/dL (12.0-18.0) L 03/15/18 06:46 Hct 30.7 % (35.0-51.0) L 03/15/18 06:46 MCV 88.2 fL (80.0-94.0) 03/15/18 06:46 MCH 29.8 pg (27.0-31.0) 03/15/18 06:46 MCHC 33.8 g/dL (33.0-37.0) 03/15/18 06:46 RDW 13.7 % (11.5-14.5) 03/15/18 06:46 Plt Count 130 K/uL (130-400) 03/15/18 06:46 MPV 8.0 fL (7.2-11.7) 03/15/18 06:46 Neut % (Auto) 44.8 % (50.0-75.0) L 03/15/18 06:46 Lymph % (Auto) 40.1 % (20.0-40.0) H 03/15/18 06:46 Antelope % (Auto) 12.1 % (0.0-10.0) H 03/15/18 06:46 Eos % (Auto) 2.2 % (0.0-4.0) 03/15/18 06:46 Baso % (Auto) 0.8 % (0.0-2.0) 03/15/18 06:46 Neut # (Auto) 1.6 K/uL (1.8-7.0) L 03/15/18 06:46 Lymph # (Auto) 1.4 K/uL (1.0-4.3) 03/15/18 06:46 Antelope # (Auto) 0.4 K/uL (0.0-0.8) 03/15/18 06:46 Eos # (Auto) 0.1 K/uL (0.0-0.7) 03/15/18 06:46 Baso # (Auto) 0.0 K/uL (0.0-0.2) 03/15/18 06:46 PT 16.9 SECONDS (9.7-12.2) H 03/14/18 15:42 INR 1.5 03/14/18 15:42 APTT 39 SECONDS (21-34) H 03/14/18 15:42 Sodium 140 mmol/L (132-148) 03/15/18 06:46 Potassium 3.9 mmol/L (3.6-5.2) 03/15/18 06:46 Chloride 108 mmol/L (98-107) H 03/15/18 06:46 Carbon Dioxide 26 mmol/L (22-30) 03/15/18 06:46 Anion Gap 10 (10-20) 03/15/18 06:46 BUN 13 mg/dL (9-20) 03/15/18 06:46 Creatinine 0.7 mg/dL (0.8-1.5) L 03/15/18 06:46 Est GFR ( Amer) > 60 03/15/18 06:46 Est GFR (Non-Af Amer) > 60 03/15/18 06:46 Random Glucose 99 mg/dL (75-110) 03/15/18 06:46 Hemoglobin A1c 5.5 % (4.2-6.5) 03/15/18 06:46 Calcium 8.7 mg/dl (8.6-10.4) 03/15/18 06:46 Phosphorus 2.9 mg/dL (2.5-4.5) 03/15/18 06:46 Magnesium 2.0 mg/dL (1.6-2.3) 03/15/18 06:46 Total Bilirubin 0.5 mg/dL (0.2-1.3) 03/15/18 06:46 AST 47 U/L (17-59) 03/15/18 06:46 ALT 48 U/L (21-72) 03/15/18 06:46 Alkaline Phosphatase 64 U/L (38-126) 03/15/18 06:46 Total Creatine Kinase 57 U/L (55-170) 03/14/18 15:42 CK-MB (Mass) 1.08 ng/mL (0.0-3.38) 03/14/18 15:42 Troponin I < 0.0120 ng/mL (0.00-0.120) 03/15/18 06:46 Total Protein 6.1 g/dL (6.3-8.3) L 03/15/18 06:46 Albumin 3.4 g/dL (3.5-5.0) L 03/15/18 06:46 Globulin 2.7 gm/dL (2.2-3.9) 03/15/18 06:46 Albumin/Globulin Ratio 1.3 (1.0-2.1) 03/15/18 06:46 Triglycerides 69 mg/dL (0-149) D 03/15/18 06:46 Cholesterol 126 mg/dL (0-199) 03/15/18 06:46 LDL Cholesterol Direct 75 mg/dL (0-129) 03/15/18 06:46 HDL Cholesterol 49 mg/dL (30-70) 03/15/18 06:46 TSH 3rd Generation 1.29 mIU/L (0.46-4.68) 03/15/18 06:46 - Hospital Course Hospital Course: This is a 62 year old male with HTN, CAD, Atrial Fibrillation on Xarelto, [place] (July 2016), TIAs x2 (Mar 2016 & Jun 2016) Carotid disease, COPD, Nephrolithiasis and untreated Hepatitis C who presents to the ED with headache to bilateral temporal region and behind bilateral eyes that began 3 days ago. Pain is rated 10/10. It is associated with blurred vision bilaterally. States he has never had a headache like this before. Associated with photophobia and phonophobia. Patient also complains of intermittent L sided chest pain with numbness and tingling to L arm for the past 2 days. Episodes last 20 minutes and resolve on their own. He states pain is similar to previous [place]. EKG showed NSR and unchanged from previous studies. CXR showed an upper lobe abnormality that remained unchanged from prior studies. CT Chest showed rounded opacity at the right lung apex described on reason chest radiograph corresponds to the costo chondral junction of the 1st rib visualized on [place]. No pulmonary nodule, mass or consolidation. Troponins were negative x 3. Echo was done this year and showed normal EF and normal left ventricle. Vitals remained stable, afebrile, no tachycardia, no hypertension. Stress test was done in January 2018 which was normal. Cardiac cath in May 2017 showed normal coronaries. Patient received morphine for his pain in the ED and states that it is now better. Patient is medically optimized for discharge. Upon discharge, patient was given instructions: 1). Please follow up with your primary care physician Dr. Garrett as instructed by her and with your Pain Management Physician (as planned for next week). 2). Please discuss with either Dr. Garrett or your Pain Management Physician a referral for Physical Therapy to help manage your pain. 3). You stated that you had enough of your home medications. Please use them as instructed by Dr. Garrett and your Pain Management Physician. 4). You were provided with prescription for Colace to help keep your stools soft as you are on narcotic pain medications. Please take 1 tablet by mouth 2 times a day (breakfast and dinner). If the medication is too expesive for you, then you may drink 8 ounces of prune juice with breakfast in the morning to help keep your stools soft. Discharge Exam - Head Exam Head Exam: ATRAUMATIC, NORMOCEPHALIC - Additional Findings Additional findings: - Constitutional Appears: No Acute Distress - Head Exam Head Exam: ATRAUMATIC, NORMOCEPHALIC - Eye Exam Eye Exam: EOMI, PERRL - ENT Exam ENT Exam: Mucous Membranes Moist - Respiratory Exam Respiratory Exam: Clear to Auscultation Bilateral. absent: Rales, Rhonchi, Wheezes - Cardiovascular Exam Cardiovascular Exam: RRR, +S1, +S2 - GI/Abdominal Exam GI & Abdominal Exam: Normal Bowel Sounds, Soft. absent: Distended, Guarding, Rebound, Tenderness - Extremities Exam Extremities exam: Positive for: full ROM, normal capillary refill, normal inspection. Negative for: calf tenderness, tenderness - Neurological Exam Neurological exam: Alert, CN II-XII Intact, Oriented x3 - Psychiatric Exam Psychiatric exam: Normal Affect, Normal Mood - Skin Skin Exam: Dry, Intact, Normal Color Discharge Plan - Discharge Medications Prescriptions: Docusate Sodium [Colace] 100 mg PO BID #60 capsule - Follow Up Plan Condition: GOOD Disposition: HOME/ ROUTINE Instructions: Heart Healthy Diet, Chest Pain (DC), Headache, Adult (DC), Docusate Additional Instructions: The following instructions were explained to patient a copy will need to be given to patient upon discharge: 1). Please follow up with your primary care physician Dr. Garrett as instructed by her and with your Pain Management Physician (as planned for next week). 2). Please discuss with either Dr. Garrett or your Pain Management Physician a referral for Physical Therapy to help manage your pain. 3). You stated that you had enough of your home medications. Please use them as instructed by Dr. Garrett and your Pain Management Physician. 4). You were provided with prescription for Colace to help keep your stools soft as you are on narcotic pain medications. Please take 1 tablet by mouth 2 times a day (breakfast and dinner). If the medication is too expesive for you, then you may drink 8 ounces of prune juice with breakfast in the morning to help keep your stools soft. 5). Please take care and be well. Ang Mora D.O. Referrals: Jenny Garrett MD [Family Provider] -
[2018-03-15] MEDS: Morphine 15 mg SR Tab PO SCH (09:35)
[2018-03-15] MEDS ORDERED: Pantoprazole 40 mg EC Tab PO SCH (10:00)
[2018-03-15] MEDS ORDERED: buPROPion 150 mg/24 Hours XL Tab PO SCH (10:00)
[2018-03-15] MEDS ORDERED: Pneumococcal 23-Valent Vaccine IM ONE (12:00)
[2018-03-15] MEDS ORDERED: Influenza Vaccine 60 MCG/0.5 ML SYR (3 yr & up) IM ONE (12:00)
--- NOTE | 2018-03-15 12:15 | CARD ---
APPROVED REPORT Date of service: 03/14/2018 EKG Measurement Heart [id number] <Conclusion> Sinus bradycardia Otherwise normal ECG
[2018-03-15] MEDS ORDERED: Digoxin 125 mcg (0.125 mg) Tab PO SCH (18:00)
== END 2018-03-15 13:15 | disposition home or self-care (01) ==
LOC: C.ER 13:33 → C.9E 18:15 → C.6T 03-15 00:41
PROVIDERS: ADMIT Internal Medicine; ATTEND Internal Medicine
DX: I10 Essential (primary) hypertension (principal); I25.10 Atherosclerotic heart disease of native coronary artery without angina pectoris; I48.91 Unspecified atrial fibrillation; J44.9 Chronic obstructive pulmonary disease, unspecified; B19.20 Unspecified viral hepatitis C without hepatic coma; N20.0 Calculus of kidney; F43.10 Post-traumatic stress disorder, unspecified; K21.9 Gastro-esophageal reflux disease without esophagitis; F41.0 Panic disorder [episodic paroxysmal anxiety]; Z82.49 Family history of ischemic heart disease and other diseases of the circulatory system; Z79.01 Long term (current) use of anticoagulants; I25.2 Old myocardial infarction; Z87.891 Personal history of nicotine dependence; Z90.49 Acquired absence of other specified parts of digestive tract
CPT/HCPCS: 36415; 70450; 71045; 80053; 80061; 82550; 82553; 83036; 83735; 84100; 84443; 84484; 85025; 85610; 85730; 93005; 96360; 96374; G0378; J1200; J2270; J2765; J7040

== ENCOUNTER 2018-08-06 11:54 | Emergency (ER) | payer MEDICAID ==
[2018-08-06 11:55] VITALS: PULSE 64; BMI 26.0
[2018-08-06] MEDS ORDERED: Lidocaine 5% Patch TD STA (12:20)
[2018-08-06] MEDS ORDERED: Lidocaine 5% Patch TD ONE (12:26)
--- NOTE | 2018-08-06 12:36 | C.PDOC ---
History Of Present Illness 63 years old male with PMHx of COPD, A-Fib, spinal Stenosis and Scoliosis with numbness to hip, presents to ED for complaints of 10/10 lower and middle back pain. Patient reports symptoms began yesterday after he slipped and fell and hit his back on the side of the bathtub. Patient states pain with movement, but is able to bare weight. Patient reports pain was constant and he was unable to sleep at night due to pain which prompted the ED visit. Denies medication use for relief, associated head injury with the fall, LOC, or any other physical complaints. Patient is allergic to Tramadol and Ketorolac. PMD: * [facility]: * Heike Laird MD Time Seen by Provider: 08/06/18 12:08 Chief Complaint (Nursing): Back Pain History Per: Patient History/Exam Limitations: no limitations Onset/Duration Of Symptoms: Hrs Current Symptoms Are (Timing): Still Present Quality Of Discomfort: "Pain" Severity: Severe Pain Scale Rating Of: 10 Previous Symptoms: Back Pain Associated Symptoms: None Exacerbating Factor(s): Turning, Movement, Sitting, Standing Recent travel outside of the [place]: No Past Medical History Reviewed: Historical Data, Nursing Documentation, Vital Signs Vital Signs: Last Vital Signs Temp 98.3 F 08/06/18 11:56 Pulse 77 08/06/18 11:56 Resp 20 08/06/18 11:56 BP 114/69 08/06/18 11:56 Pulse Ox 99 08/06/18 11:56 - Medical History PMH: Anxiety, Arthritis, Asthma, Atrial Fibrillation, Back Problems, Bipolar Disorder, CAD, Cardia Arrhythmia, COPD, CVA, Depression, Hepatitis, HTN, Post Traumatic Stress Disorder (1985 of 2 y/o daughter), TIA Denies: Diabetes, HIV, Chronic Kidney Disease, Seizures, Sexually Transmitted Disease Surgical History: Appendectomy, Tonsillectomy Denies: Carotid Endarterectomy - [facility] Procedures DILATION OF RIGHT URETER WITH INTRALUMINAL DEVICE, ENDO (11/17/16) DX ULTRASOUND-HEART (05/05/14) FLUOROSCOPY OF KIDNEY, URETER & BLADDER USING OTH CONTRAST (11/17/16) INSERTION OF INFUSION DEV INTO SUP VENA CAVA, PERC APPROACH (07/09/15) MEASURE OF CARDIAC SAMPL & PRESSURE, L HEART, PERC APPROACH (05/14/17) PERCUTANEOUS ABDOMINAL DRAINAGE (05/05/14) PLAIN RADIOGRAPHY OF LEFT HEART USING OTHER CONTRAST (05/14/17) REMOVAL OF INTRALUMINAL DEVICE FROM URETER, ENDO (12/15/16) ULTRASONOGRAPHY OF RIGHT AND LEFT HEART, TRANSESOPHAGEAL (07/09/15) VENOUS CATHETERIZATION NEC (05/05/14) Family History: States: No Known Family Hx - Social History Hx Tobacco Use: Yes (1ppd from ages [age] ) Hx Alcohol Use: No Hx Substance Use: No - Immunization History Hx Tetanus Toxoid Vaccination: Yes Hx Influenza Vaccination: Yes Hx Pneumococcal Vaccination: No Review Of Systems Except As Marked, All Systems Reviewed And Found Negative. Constitutional: Negative for: Fever, Chills Gastrointestinal: Negative for: Nausea, Vomiting, Diarrhea Musculoskeletal: Positive for: Back Pain (Lower and middle back pain). Negative for: Neck Pain Skin: Negative for: Rash Neurological: Negative for: Weakness, Numbness Physical Exam - Physical Exam Appears: Non-toxic, Other (In distress only with sudden movement. Awake and Alert. ) Skin: Normal Color, Warm, Dry, No Rash Head: Atraumatic, Normacephalic Eye(s): bilateral: Normal Inspection, PERRL, EOMI Oral Mucosa: Moist Neck: Normal ROM, Supple Chest: Symmetrical, No Tenderness Cardiovascular: Rhythm Regular, No Murmur Respiratory: Normal Breath Sounds, No Rales, No Rhonchi, No Wheezing Gastrointestinal/Abdominal: Soft, No Tenderness Back: Other (Tenderness to Spine. No bruising, discoloration, swelling, laceration, or bleeding.) Extremity: Normal ROM Extremity: Bilateral: Atraumatic, Normal Color And Temperature, Normal ROM Pulses: Left Radial: Normal, Right Radial: Normal Neurological/Psych: Oriented x3, Normal Speech, Normal Motor, Normal Sensation, Normal Reflexes Gait: Steady (Able to bear weight) ED Course And Treatment O2 Sat by Pulse Oximetry: 99 (RA) Pulse Ox Interpretation: Normal - CT Scan/US CT Lumbar spine Other Rad Studies (CT/US): Read By Radiologist, Radiology Report Reviewed CT/US Interpretation: IMPRESSION: No definite CT evidence of acute fracture or acute traumatic subluxation. Redemonstrated is [id number] 7 millimeter anterior spondylolisthesis of L5 relative to S1. Moderate to large size osteophyte disc herniation complex at L4-L5 associated with posterior ligament and facet joint hypertrophy which resulting in moderate to severe spinal and lateral recess narrowing. Hip CT Other Rad Studies (CT/US): Read By Radiologist, Radiology Report Reviewed CT/US Interpretation: IMPRESSION: No evidence of acute fracture or dislocation. Medical Decision Making Medical Decision Making: Plan: * Lidoderm * CT Lumbar spine * CT Hip 13:57: * Upon re-evaluation, patient is sitting comfortable in ER. CT results explained to him. Care instructions advised and patient is in agreement. Follow up with PMD/ pain management. Patient denies any complaints at this time. Patient is stable for discharge and will be discharged. Return if symptoms persist or worsen. Disposition Counseled Patient/Family Regarding: Studies Performed, Diagnosis, Need For Follo wup, Rx Given - Disposition Referrals: [facility] [Outside] Disposition: HOME/ ROUTINE Disposition Time: 14:15 Condition: STABLE Prescriptions: Cyclobenzaprine [Cyclobenzaprine HCl] 10 mg PO TID #12 tab Instructions: Low Back Pain (DC), Spinal Stenosis (DC) Forms: [facility] (Mauritanian), General Discharge Instructions - POA Present On Arrival: None - Clinical Impression Clinical Impression: Back pain - Scribe Statement The provider has reviewed the documentation as recorded by the Scribe Krzysztof Howe All medical record entries made by the Scribe were at my direction and personally dictated by me. I have reviewed the chart and agree that the record accurately reflects my personal performance of the history, physical exam, medical decision making, and the department course for this patient. I have also personally directed, reviewed, and agree with the discharge instructions and disposition.
--- NOTE | 2018-08-06 13:23 | CT ---
Date of service: 08/06/2018 PROCEDURE: CT Lumbar Spine without contrast HISTORY: fall, pain to lumbar and right hip COMPARISON: Comparison is made to the previous CT of the chest dated 11/15/[address] of the abdomen dated 10/20/2016 MRI of the lumbar spine dated 08/25/2016 TECHNIQUE: Axial computed tomography images were obtained of the lumbar spine without the use of intravenous contrast. Coronal and sagittal reformatted images were created and reviewed. Radiation dose: Total exam DLP = 573.77 mGy-cm. This CT exam was performed using one or more of the following dose reduction techniques: Automated exposure control, adjustment of the mA and/or kV according to patient size, and/or use of iterative reconstruction technique. FINDINGS: VERTEBRAE: No evidence of new fracture. Again noted is 7 millimeter anterior spondylolisthesis of L5 relative to S1 and 5 millimeter posterior listhesis of L4 relative to L5. DISCS/SPINAL CANAL/NEURAL FORAMINA: L1-2: There is osteophyte left paracentral bulging disc associated with posterior ligament and facet joint hypertrophy which resulting in mild spinal left lateral recess and left neural foramina stenosis. L2-3: Small broad-based bulging disc associated with posterior ligament and facet joint hypertrophy without evidence of significant spinal or neural foraminal narrowing. L3-4: Severe intervertebral disc space narrowing is again noted. Severe endplate degenerative changes are also again noted. There is small osteophyte bulging disc complex associated with posterior ligament and facet joint hypertrophy which resulting in mild spinal and neural foraminal narrowing. L4-5: There is moderate size osteophyte disc herniation associated with market posterior ligament and facet joint hypertrophy which resulting in severe spinal and lateral recess narrowing. There is mild to moderate bilateral neural foraminal narrowing left more than right. L5-S1: No evidence of significant spinal or neural foraminal stenosis. PARASPINAL SOFT TISSUES: There are bilateral nonobstructing renal calculi. No evidence of hydronephrosis. OTHER FINDINGS: None. IMPRESSION: No definite CT evidence of acute fracture or acute traumatic subluxation. Redemonstrated is [id number] 7 millimeter anterior spondylolisthesis of L5 relative to S1. Moderate to large size osteophyte disc herniation complex at L4-L5 associated with posterior ligament and facet joint hypertrophy which resulting in moderate to severe spinal and lateral recess narrowing.
--- NOTE | 2018-08-06 13:30 | CT ---
Date of service: 08/06/2018 PROCEDURE: CT of right hip without contrast HISTORY: fall with pain and numbness COMPARISON: No prior similar study available for comparison. TECHNIQUE: Axial and reformatted coronal and sagittal CT images of right hip were obtained without IV contrast administration. 3D reformatted images of the right hip were obtained. Total exam DLP: 233.45 FINDINGS: There is no evidence of acute fracture or dislocation at the right hip. [id number] osteoarthritic changes are noted. Moderate arthritic degenerative changes are also noted at the pubic symphysis. No evidence of significant right hip joint effusion. No evidence of fluid collection or hematoma around the right hip. The visualized portion of the soft tissue in the pelvis demonstrate no acute pathology. IMPRESSION: No evidence of acute fracture or dislocation.
[2018-08-06 14:07] VITALS: BP 116/70; PULSE 78; RESP 17; TEMP 99
[2018-08-06 14:18] VITALS: O2SAT 99
== END 2018-08-06 14:43 | disposition home or self-care (01) ==
LOC: C.ER 11:54
DX: M54.9 Dorsalgia, unspecified (principal); I25.10 Atherosclerotic heart disease of native coronary artery without angina pectoris; I10 Essential (primary) hypertension; Z86.73 Personal history of transient ischemic attack (TIA), and cerebral infarction without residual deficits; Z87.891 Personal history of nicotine dependence

== ENCOUNTER 2018-08-13 15:15 | Emergency (ER) | payer MEDICAID ==
[2018-08-13 15:16] VITALS: PULSE 64; BMI 26.0
[2018-08-13 15:32] VITALS: TEMP 98.5
--- NOTE | 2018-08-13 15:50 | C.PDOC ---
History Of Present Illness 63 y/o male, with history of SVTs in the past, presents to ED with chief complaint of chest pain and palpitations. Patient states that he was at [employer] and suddenly developed chest pain, which he describes as squeezing and pressure. According to EMS, his heart rate was 160 bpm. Patient also reports that he fell one week ago on his back and was seen in the ER after. At that time, he was prescribed flexeril but he continued to have intermittent back pain radiating to right leg. Patient is allergic to aspirin. Time Seen by Provider: 08/13/18 15:28 Chief Complaint (Nursing): Chest Pain History Per: Patient History/Exam Limitations: no limitations Onset/Duration Of Symptoms: Hrs Current Symptoms Are (Timing): Still Present Past Medical History Reviewed: Historical Data, Nursing Documentation, Vital Signs Vital Signs: Last Vital Signs Temp 98.5 F 08/13/18 15:26 Pulse 83 08/13/18 15:26 Resp 20 08/13/18 15:26 BP 142/90 08/13/18 15:26 Pulse Ox 99 08/13/18 15:26 - Medical History PMH: Anxiety, Arthritis, Asthma, Atrial Fibrillation, Back Problems, Bipolar Disorder, CAD, Cardia Arrhythmia, COPD, CVA, Depression, Hepatitis, HTN, Post Traumatic Stress Disorder (1985 of 2 y/o daughter), TIA Denies: Diabetes, HIV, Chronic Kidney Disease, Seizures, Sexually Transmitted Disease Surgical History: Appendectomy, Tonsillectomy Denies: Carotid Endarterectomy - [facility] Procedures DILATION OF RIGHT URETER WITH INTRALUMINAL DEVICE, ENDO (11/17/16) DX ULTRASOUND-HEART (05/05/14) FLUOROSCOPY OF KIDNEY, URETER & BLADDER USING OTH CONTRAST (11/17/16) INSERTION OF INFUSION DEV INTO SUP VENA CAVA, PERC APPROACH (07/09/15) MEASURE OF CARDIAC SAMPL & PRESSURE, L HEART, PERC APPROACH (05/14/17) PERCUTANEOUS ABDOMINAL DRAINAGE (05/05/14) PLAIN RADIOGRAPHY OF LEFT HEART USING OTHER CONTRAST (05/14/17) REMOVAL OF INTRALUMINAL DEVICE FROM URETER, ENDO (12/15/16) ULTRASONOGRAPHY OF RIGHT AND LEFT HEART, TRANSESOPHAGEAL (07/09/15) VENOUS CATHETERIZATION NEC (05/05/14) Family History: States: No Known Family Hx - Social History Hx Tobacco Use: Yes (1ppd from ages [age] ) Hx Alcohol Use: No Hx Substance Use: No - Immunization History Hx Tetanus Toxoid Vaccination: Yes Hx Influenza Vaccination: Yes (03/2018) Hx Pneumococcal Vaccination: No Review Of Systems Except As Marked, All Systems Reviewed And Found Negative. Constitutional: Negative for: Fever Cardiovascular: Positive for: Chest Pain, Palpitations Respiratory: Negative for: Shortness of Breath Gastrointestinal: Negative for: Nausea, Vomiting, Abdominal Pain Genitourinary: Negative for: Dysuria, Hematuria Musculoskeletal: Positive for: Back Pain Neurological: Negative for: Dizziness Physical Exam - Physical Exam Appears: Non-toxic, No Acute Distress Skin: Warm, Dry Head: Atraumatic, Normacephalic Eye(s): bilateral: Normal Inspection Oral Mucosa: Moist Neck: Supple Cardiovascular: Rhythm Regular, No Murmur Respiratory: Normal Breath Sounds, No Rales, No Rhonchi, No Wheezing Gastrointestinal/Abdominal: Soft, No Tenderness Back: Other (diffuse lower back tenderness) Extremity: Bilateral: Atraumatic, Normal ROM Neurological/Psych: Oriented x3, Normal Speech, Normal Cognition ED Course And Treatment - Laboratory Results Result Diagrams: 08/13/18 15:54 08/13/18 15:54 ECG: Interpreted By Me, Viewed By Me ECG Rhythm: Sinus Rhythm Interpretation Of ECG: Prolonged QT. No ST elevation. Rate From EC O2 Sat by Pulse Oximetry: 99 (RA) Pulse Ox Interpretation: Normal - Other Rad CXR X-Ray: Read By Radiologist Interpretation: FINDINGS: LUNGS: Clear. PLEURA: No pneumothorax or pleural fluid seen. CARDIOVASCULAR: Aortic atherosclerotic calcifications. Aortic tortuosity. Cardiomediastinal silhouette stably prominent. OSSEOUS STRUCTURES: Unchanged. VISUALIZED UPPER ABDOMEN: Normal. OTHER FINDINGS: None. IMPRESSION: No active disease. Medical Decision Making Medical Decision Making: Plan: --EKG --Chest XR --UA --Glucose POC --Morphine 2 mg IVP 17:[address] Elgin Mora who recommended to send patient home. Will follow up with clinic tomorrow. Disposition Counseled Patient/Family Regarding: Studies Performed, Diagnosis, Need For Followup - Disposition Referrals: Jenny Garrett MD [Staff Provider] - Disposition: HOME/ ROUTINE Disposition Time: 17:47 Condition: STABLE Instructions: Low Back Pain in Adults, Chest Pain Forms: [employer] (Portuguese) - POA Present On Arrival: None - Clinical Impression Clinical Impression: Nonspecific chest pain, Chronic back pain - Scribe Statement The provider has reviewed the documentation as recorded by the Radha Carey Provider Attestation: All medical record entries made by the Peteiblucia were at my direction and personally dictated by me. I have reviewed the chart and agree that the record accurately reflects my personal performance of the history, physical exam, medical decision making, and the department course for this patient. I have also personally directed, reviewed, and agree with the discharge instructions and disposition.
[2018-08-13 15:54] VITALS: RESP 13
[2018-08-13 16:03] LABS: BASO % 0.4 % (0.0-2.0); EOS % 0.4 % (0.0-4.0); HEMOGLOBIN 11.2 g/dL (12.0-18.0); LYMPH # 0.9 K/uL (1.0-4.3); LYMPH % 10.6 % (20.0-40.0); MEAN CORPUSCULAR HEMOGLOBIN 30.1 pg (27.0-31.0); MEAN CORPUSCULAR HGB CONC 33.4 g/dL (33.0-37.0); MEAN PLATELET VOLUME 7.8 fL (7.2-11.7); MONO # 0.7 K/uL (0.0-0.8); MONO % 7.7 % (0.0-10.0); NEUT # 7.1 K/uL (1.8-7.0); NEUT % 80.9 % (50.0-75.0); RBC 3.73 Mil/uL (4.40-5.90); RED CELL DISTRIBUTION WIDTH 13.3 % (11.5-14.5)
[2018-08-13 16:06] LABS: WHITE BLOOD COUNT 8.8 K/uL (4.8-10.8)
[2018-08-13 16:13] LABS: INR 1.3; PROTHROMBIN TIME 14.4 SECONDS (9.7-12.2)
--- NOTE | 2018-08-13 16:15 | RAD ---
Date of service: 08/13/2018 PROCEDURE: CHEST RADIOGRAPH, 1 VIEW HISTORY: chest pain COMPARISON: Chest radiograph dated 03/14/2018. FINDINGS: LUNGS: Clear. PLEURA: No pneumothorax or pleural fluid seen. CARDIOVASCULAR: Aortic atherosclerotic calcifications. Aortic tortuosity. Cardiomediastinal silhouette stably prominent. OSSEOUS STRUCTURES: Unchanged. VISUALIZED UPPER ABDOMEN: Normal. OTHER FINDINGS: None. IMPRESSION: No active disease.
[2018-08-13 16:33] VITALS: O2SAT 99
[2018-08-13 16:35] LABS: ALB/GLOB RATIO 1.2 (1.0-2.1); ALT/SGPT 32 U/L (21-72); AST/SGOT 45 U/L (17-59); BLOOD UREA NITROGEN 17 mg/dL (9-20); CALCIUM 9.8 mg/dl (8.6-10.4); GFR NON-AFRICAN AMERICAN > 60
[2018-08-13 17:04] LABS: URINE BACTERIA OCC (<OCC); URINE HYALINE CAST >20 /lpf (0-2)
[2018-08-13 17:06] LABS: URINE BILIRUBIN NEGATIVE (NEGATIVE); URINE BLOOD NEGATIVE (NEGATIVE); URINE CLARITY CLEAR (Clear); URINE COLOR YELLOW (YELLOW); URINE GLUCOSE (UA) NEG (Normal); URINE LEUKOCYTE ESTERASE NEG Leu/uL (Negative); URINE PROTEIN TRACE mg/dL (NEGATIVE)
[2018-08-13 17:20] VITALS: BP 133/75; PULSE 87
[2018-08-13 17:26] LABS: BARBITURATES, UR NEGATIVE (NEGATIVE); PHENCYCLIDINE, UR NEGATIVE (NEGATIVE)
[2018-08-13 17:28] LABS: BENZODIAZEPINES, UR POSITIVE (NEGATIVE); OPIATES, UR POSITIVE (NEGATIVE)
[2018-08-13] MEDS ORDERED: Morphine 4 MG/ML VIAL IV ONE (17:52)
--- NOTE | 2018-08-14 15:18 | CARD ---
APPROVED REPORT Date of service: 08/13/2018 EKG Measurement Heart [id number] CO 148P61 [id number] <Conclusion> Normal sinus rhythm Prolonged QT Abnormal ECG
== END 2018-08-13 18:25 | disposition home or self-care (01) ==
LOC: C.ER 15:15
DX: R07.9 Chest pain, unspecified (principal); G89.29 Other chronic pain; M54.9 Dorsalgia, unspecified
CPT/HCPCS: 71045; 80053; 80324; 80345; 80346; 80349; 80353; 80358; 80361; 81001; 82948; 83992; 84484; 85025; 85610; 85730; 93005; 96374; 96376; 99285; J2270

== ENCOUNTER 2018-08-15 00:51 | Emergency (ER) | payer MEDICAID ==
[2018-08-15 00:51] VITALS: PULSE 64; BMI 26.0
[2018-08-15 01:15] VITALS: TEMP 98.1
--- NOTE | 2018-08-15 01:17 | C.PDOC ---
History Of Present Illness Patient presents to the ER requesting pain medication for his chronic back pain. Denies chest pain or palpitations. Patient states he was seen here on 08/13/18 for similar complaints, had negative cardiac work up. He is on chronic pain medication, is aware that we are a narcotic free ER. Seen ambulating without difficulty. Time Seen by Provider: 08/15/18 01:17 Chief Complaint (Nursing): Chest Pain History Per: Patient History/Exam Limitations: no limitations Onset/Duration Of Symptoms: Hrs Current Symptoms Are (Timing): Still Present Severity: Mild Pain Scale Rating Of: 3 Associated Symptoms: denies: Dyspnea, Other (Chest pain) Modifying Factors: None Exacerbating Factors: None Alleviating Factors: None Recent travel outside of the [place]: No Past Medical History Reviewed: Historical Data, Nursing Documentation, Vital Signs Vital Signs: Last Vital Signs Temp 98.1 F 08/15/18 01:00 Pulse 73 08/15/18 01:00 Resp 19 08/15/18 01:00 BP 162/90 H 08/15/18 01:00 Pulse Ox 100 08/15/18 01:00 - Medical History PMH: Anxiety, Arthritis, Asthma, Atrial Fibrillation, Back Problems, Bipolar Disorder, CAD, Cardia Arrhythmia, COPD, CVA, Depression, Hepatitis, HTN, Post Traumatic Stress Disorder (1985 of 2 y/o daughter), TIA Denies: Diabetes, HIV, Chronic Kidney Disease, Seizures, Sexually Transmitted Disease Surgical History: Appendectomy, Tonsillectomy Denies: Carotid Endarterectomy - [facility] Procedures DILATION OF RIGHT URETER WITH INTRALUMINAL DEVICE, ENDO (11/17/16) DX ULTRASOUND-HEART (05/05/14) FLUOROSCOPY OF KIDNEY, URETER & BLADDER USING OTH CONTRAST (11/17/16) INSERTION OF INFUSION DEV INTO SUP VENA CAVA, PERC APPROACH (07/09/15) MEASURE OF CARDIAC SAMPL & PRESSURE, L HEART, PERC APPROACH (05/14/17) PERCUTANEOUS ABDOMINAL DRAINAGE (05/05/14) PLAIN RADIOGRAPHY OF LEFT HEART USING OTHER CONTRAST (05/14/17) REMOVAL OF INTRALUMINAL DEVICE FROM URETER, ENDO (12/15/16) ULTRASONOGRAPHY OF RIGHT AND LEFT HEART, TRANSESOPHAGEAL (07/09/15) VENOUS CATHETERIZATION NEC (05/05/14) Family History: States: No Known Family Hx - Social History Hx Tobacco Use: Yes (1ppd from ages [age] ) Hx Alcohol Use: No Hx Substance Use: No - Immunization History Hx Tetanus Toxoid Vaccination: Yes Hx Influenza Vaccination: Yes (03/2018) Hx Pneumococcal Vaccination: No Review Of Systems Constitutional: Negative for: Fever, Chills Cardiovascular: Negative for: Chest Pain, Palpitations Respiratory: Negative for: Cough, Shortness of Breath Gastrointestinal: Negative for: Nausea, Vomiting Genitourinary: Negative for: Incontinence Musculoskeletal: Positive for: Back Pain Neurological: Negative for: Weakness, Numbness Physical Exam - Physical Exam Appears: Non-toxic Skin: Warm, Dry Head: Normacephalic Oral Mucosa: Moist Chest: Symmetrical, No Tenderness Cardiovascular: Rhythm Regular Respiratory: No Rales, No Rhonchi, No Wheezing Gastrointestinal/Abdominal: Soft, No Tenderness Back: Other (Lower back pain reproducible on palpation, no incontinence) Neurological/Psych: Oriented x3 Gait: Steady ED Course And Treatment ECG: Interpreted By Me, Viewed By Me ECG Rhythm: Sinus Rhythm (67), Nonspecific Changes O2 Sat by Pulse Oximetry: 100 (Room air) Pulse Ox Interpretation: Normal Progress Note: Tylenol administered. Lidoderm applied. Reevaluation Time: 02:00 Reassessment Condition: Improved Medical Decision Making Medical Decision Making: Upon provider reevaluation patient is feeling better, is medically stable, and requires no further treatment in the ED at this time. Patient will be discharged home with Rx for lidoderm patches . Counseling was provided and all questions were answered regarding diagnosis and need for follow up with the referred clinic. There is agreement to discharge plan. Return if symptoms persist or worsen. Disposition Counseled Patient/Family Regarding: Studies Performed, Diagnosis, Need For Followup, Rx Given - Disposition Disposition: HOME/ ROUTINE Disposition Time: 01:57 Condition: FAIR Prescriptions: Lidocaine 5% [Lidoderm] 1 ea TD DAILY PRN #5 patch PRN Reason: Pain, Severe (8-10) Instructions: Chronic Pain (DC) Forms: [facility] (Amharic) - Clinical Impression Clinical Impression: Chronic pain - Scribe Statement The provider has reviewed the documentation as recorded by the Scribe Eric Samuels All medical record entries made by the Scribe were at my direction and pe rsonally dictated by me. I have reviewed the chart and agree that the record accurately reflects my personal performance of the history, physical exam, medical decision making, and the department course for this patient. I have also personally directed, reviewed, and agree with the discharge instructions and disposition.
[2018-08-15] MEDS ORDERED: Lidocaine 5% Patch TD STA (01:34)
[2018-08-15] MEDS ORDERED: Lidocaine 5% Patch TD ONE (02:06)
[2018-08-15 03:04] VITALS: BP 142/88; PULSE 78; RESP 20; O2SAT 98
--- NOTE | 2018-08-17 14:12 | CARD ---
APPROVED REPORT Date of service: 08/15/2018 EKG Measurement Heart [id number] VT 142P65 [id number] <Conclusion> Normal sinus rhythm Normal ECG
== END 2018-08-15 03:02 | disposition home or self-care (01) ==
LOC: C.ER 00:51
DX: G89.29 Other chronic pain (principal)